=== PATIENT | female | born 1940 | race Caucasian/White ===

== ENCOUNTER → 2023-12-01 05:00 | Outpatient (REF) | payer MEDICARE, MEDICAID, SELFPAY ==
[2023-12-01 09:42] LABS: Hematocrit 34.6 % (37-47); Hemoglobin 10.9 g/dL (12.0-15.0); Mean Corp Hgb Conc 31.5 g/dL (32-36); Mean Corpuscular Hgb 28.4 pg (27.0-32.0); Mean Corpuscular Volume 90.1 fL (81-99); Mean Platelet Vol. 10.1 fl (6.2-12.0); Platelet Count 258 K/mm3 (150-450); RBC Distribution Width CV 14.3 % (11.6-14.6); RBC Distribution Width SD 47.3 fl (35.1-43.9); Red Blood Count 3.84 M/mm3 (4.2-5.4)
[2023-12-01 10:55] LABS: Vitamin D,25 Hydroxy 35.7 ng/mL
[2023-12-01 11:59] LABS: ALB/GLOB Ratio 0.9 RATIO (0.9-2.4); AST(SGOT) 24 U/L (15-37); Alanine Aminotransfer ALT/SGPT 21 U/L (13-56); Albumin, Serum 3.2 g/dL (3.2-5.0); Alkaline Phosphatase 60 U/L (45-117); Anion Gap 5 (5-15); BUN 15 mg/dL (7-18); BUN/Creat Ratio 18.3 RATIO (10-20); Calcium,Total 8.6 mg/dL (8.5-10.1); Chloride 112 mmol/L (98-107); Cholesterol 197 mg/dL (200); Creatinine, Serum 0.82 mg/dL (0.55-1.02); EST Glomerular Filtration Rate 71 mL/min (>60); Est Glom Filt Rate - Afr Amer 86 mL/min (>60); Globulin 3.5 g/dL (2.2-4.2); Glucose 91 mg/dL (74-106); High Density Lipoprotein 63 mg/dL; Magnesium 2.2 mg/dL (1.6-2.6); Potassium 3.9 mmol/L (3.5-5.1); Protein, Total 6.7 g/dL (6.4-8.2); Sodium Level 142 mmol/L (136-145); Triglycerides 119 mg/dL; Very Low Density Lipoprotein 24 mg/dL (5-40)
[2023-12-01 13:55] LABS: Hemoglobin A1c 5.5 % (3.8-5.6)
== END ==
LOC: OLS.ACW300 05:00
PROVIDERS: Visit Provider Family Medicine
DX: E55.9 Vitamin D deficiency, unspecified (principal); Z79.899 Other long term (current) drug therapy
CPT/HCPCS: 36415; 80053; 80061; 82306; 83036; 83735; 84443; 85027

== ENCOUNTER → 2023-12-08 22:30 | Outpatient (REF) | payer MEDICARE, MEDICAID, SELFPAY ==
[2023-12-09 08:41] LABS: Bacteria 0 SEEN /hpf (None Seen); Mucous, Urine 0 SEEN /hpf (<or=2+); Red Blood Cells-Urine 0 SEEN /hpf (0-5); Squamous Epithelial Cells - UA 0 SEEN /hpf (5-10); White Blood Cells 0 SEEN /hpf (0-5)
[2023-12-09 08:50] LABS: Color, Urine Yellow (Yellow); Glucose, Dipstick Normal (Normal); Ketone-Dipstick Negative (Negative); Leukocyte Esterase-Dipstick Negative /ul (Negative); Nitrite-Dipstick Negative (Negative); Occult Blood-Urine Negative /ul (Negative); Protein-Dipstick Negative (Negative); Urine Bilirubin Dipstick Negative (Negative); Urine Clarity Clear (Clear); Urine Urobilinogen Normal (Normal)
== END ==
LOC: OLS.ACW400 22:30
PROVIDERS: Visit Provider Family Medicine
DX: F03.918 Unspecified dementia, unspecified severity, with other behavioral disturbance (principal); R29.6 Repeated falls; E66.09 Other obesity due to excess calories; R44.3 Hallucinations, unspecified; F05 Delirium due to known physiological condition
CPT/HCPCS: 81001; 87086

== ENCOUNTER → 2024-03-31 | Outpatient (REF) | payer MEDICARE, MEDICAID, SELFPAY ==
[2024-03-31 08:41] LABS: Hematocrit 28.1 % (37-47); Hemoglobin 8.9 g/dL (12.0-15.0); Mean Corp Hgb Conc 31.7 g/dL (32-36); Mean Corpuscular Volume 88.4 fL (81-99); Mean Platelet Vol. 10.1 fl (6.2-12.0); Platelet Count 221 K/mm3 (150-450); Red Blood Count 3.18 M/mm3 (4.2-5.4); White Blood Count 6.3 K/mm3 (4.4-11.0)
[2024-03-31 09:13] LABS: ALB/GLOB Ratio 0.9 RATIO (0.9-2.4); AST(SGOT) 19 U/L (15-37); Alanine Aminotransfer ALT/SGPT 14 U/L (13-56); Albumin, Serum 2.7 g/dL (3.2-5.0); Alkaline Phosphatase 58 U/L (45-117); Anion Gap 4 (5-15); BUN 15 mg/dL (7-18); BUN/Creat Ratio 19.5 RATIO (10-20); Calcium,Total 8.6 mg/dL (8.5-10.1); Chloride 112 mmol/L (98-107); Cholesterol 155 mg/dL (200); Creatinine, Serum 0.77 mg/dL (0.55-1.02); EST Glomerular Filtration Rate 76 mL/min (>60); Est Glom Filt Rate - Afr Amer 92 mL/min (>60); Globulin 2.9 g/dL (2.2-4.2); Glucose 86 mg/dL (74-106); High Density Lipoprotein 53 mg/dL; Potassium 4.1 mmol/L (3.5-5.1); Protein, Total 5.6 g/dL (6.4-8.2); Sodium Level 143 mmol/L (136-145); Triglycerides 70 mg/dL; Very Low Density Lipoprotein 14 mg/dL (5-40)
== END ==
LOC: OLS.ACW400 05:00
PROVIDERS: Visit Provider Family Medicine
DX: G30.1 Alzheimer's disease with late onset (principal); Z79.899 Other long term (current) drug therapy
CPT/HCPCS: 36415; 80053; 80061; 84443; 85027

== ENCOUNTER → 2024-04-11 | Outpatient (REF) | payer MEDICARE, MEDICAID, SELFPAY ==
[2024-04-11 08:41] LABS: Hemoglobin 10.8 g/dL (12.0-15.0); Mean Corp Hgb Conc 31.8 g/dL (32-36); Mean Corpuscular Hgb 28.4 pg (27.0-32.0); Mean Corpuscular Volume 89.5 fL (81-99); Mean Platelet Vol. 9.9 fl (6.2-12.0); Platelet Count 260 K/mm3 (150-450); RBC Distribution Width CV 13.8 % (11.6-14.6); RBC Distribution Width SD 45.1 fl (35.1-43.9)
[2024-04-11 08:52] LABS: Iron 63 ug/dL (50-170)
== END ==
LOC: OLS.ACW400 05:00
PROVIDERS: Visit Provider Family Medicine
DX: G30.1 Alzheimer's disease with late onset (principal); R26.81 Unsteadiness on feet; E66.09 Other obesity due to excess calories; R44.3 Hallucinations, unspecified
CPT/HCPCS: 36415; 83540; 85027

== ENCOUNTER → 2024-08-01 | Outpatient (REF) | payer MEDICARE, MEDICAID, SELFPAY ==
[2024-08-01 09:04] LABS: Hematocrit 33.4 % (37-47); Hemoglobin 10.5 g/dL (12.0-15.0); Mean Corp Hgb Conc 31.4 g/dL (32-36); Mean Corpuscular Hgb 27.8 pg (27.0-32.0); Mean Corpuscular Volume 88.4 fL (81-99); Mean Platelet Vol. 9.8 fl (6.2-12.0); Platelet Count 270 K/mm3 (150-450); RBC Distribution Width SD 48.5 fl (35.1-43.9); Red Blood Count 3.78 M/mm3 (4.2-5.4); White Blood Count 6.4 K/mm3 (4.4-11.0)
[2024-08-01 09:26] LABS: ALB/GLOB Ratio 1.4 RATIO (0.9-2.4); AST(SGOT) 24 U/L (<=31); Alanine Aminotransfer ALT/SGPT 10 U/L (<=34); Albumin, Serum 3.9 g/dL (3.4-4.8); Alkaline Phosphatase 85 U/L (35-104); Anion Gap 10 (5-15); BUN 19 mg/dL (4-19); BUN/Creat Ratio 23.7 RATIO (10-20); Carbon Dioxide 22.9 mmol/L (21.0-32.0); Chloride 106 mmol/L (98-108); Cholesterol 211 mg/dL (<=200); Creatinine, Serum 0.79 mg/dL (0.70-1.20); EST Glomerular Filtration Rate 75 (>60); Globulin 2.8 g/dL (2.2-4.2); Glucose 89 mg/dL (70-99); High Density Lipoprotein 61 mg/dL; Low Density Lipoprotein Calc. 135 mg/dL; Potassium 4.3 mmol/L (3.3-5.1); Protein, Total 6.7 g/dL (5.9-8.4); Sodium Level 139 mmol/L (133-145); Total Bilirubin 0.22 mg/dL (0.00-1.30); Triglycerides 76 mg/dL; Very Low Density Lipoprotein 15 mg/dL (5-40); cholesterol:hdl ratio screen 3.45
== END ==
LOC: OLS.ACW400 05:00
PROVIDERS: Visit Provider Family Medicine
DX: Z79.899 Other long term (current) drug therapy (principal); G30.1 Alzheimer's disease with late onset; R29.6 Repeated falls; R26.81 Unsteadiness on feet; E66.09 Other obesity due to excess calories; R44.3 Hallucinations, unspecified; F03.918 Unspecified dementia, unspecified severity, with other behavioral disturbance
CPT/HCPCS: 36415; 80053; 80061; 84443; 85027

== ENCOUNTER → 2024-10-05 05:00 | Outpatient (REF) | payer MEDICARE, MEDICAID, SELFPAY ==
[2024-10-05 07:04] LABS: Absolute Lymphocyte Count 2.12 X10^3/uL (0.83-4.51); Absolute Neutrophil Count 3.1 X10^3/uL (2.0-7.7); Basophil# 0.04 X10^3/uL; Basophil% 0.7 % (0-1); Eosinophil# 0.22 X10^3/uL; Eosinophils% 3.6 % (0-5); Hematocrit 31.7 % (37-47); Hemoglobin 10.2 g/dL (12.0-15.0); Lymphocyte # 2.12 X10^3/ul (0.83-4.51); Lymphocyte % 34.9 % (19-41); Mean Corp Hgb Conc 32.2 g/dL (32-36); Mean Corpuscular Hgb 28.7 pg (27.0-32.0); Mean Corpuscular Volume 89.3 fL (81-99); Mean Platelet Vol. 9.8 fl (6.2-12.0); Monocyte% 9.9 % (0-10); NRBC Flagged by Analyzer 0 % (0-5); Neutrophil # 3.09 X10^3/uL (2.7-7.7); Neutrophil % 50.7 % (47-70); Platelet Count 257 K/mm3 (150-450); RBC Distribution Width CV 14.6 % (11.6-14.6); RBC Distribution Width SD 47.3 fl (35.1-43.9); Red Blood Count 3.55 M/mm3 (4.2-5.4); White Blood Count 6.1 K/mm3 (4.4-11.0)
[2024-10-05 07:16] LABS: Anion Gap 10 (5-15); BUN 18 mg/dL (4-19); BUN/Creat Ratio 22.6 RATIO (10-20); Calcium,Total 9.3 mg/dL (7.6-11.0); Carbon Dioxide 24.1 mmol/L (21.0-32.0); Chloride 106 mmol/L (98-108); EST Glomerular Filtration Rate 73 (>60); Glucose 91 mg/dL (70-99); Potassium 4.6 mmol/L (3.3-5.1); Sodium Level 141 mmol/L (133-145)
== END ==
LOC: OLS.ACW400 05:00
PROVIDERS: Visit Provider Family Medicine
DX: G30.1 Alzheimer's disease with late onset (principal); R29.6 Repeated falls; R27.9 Unspecified lack of coordination; R41.841 Cognitive communication deficit; R53.1 Weakness; R26.81 Unsteadiness on feet; E66.09 Other obesity due to excess calories
CPT/HCPCS: 36415; 80048; 85025

== ENCOUNTER → 2024-11-28 04:00 | Outpatient (REF) | payer MEDICARE, MEDICAID, SELFPAY ==
[2024-11-28 10:35] LABS: Hematocrit 33.5 % (37-47); Hemoglobin 10.9 g/dL (12.0-15.0); Mean Corp Hgb Conc 32.5 g/dL (32-36); Mean Corpuscular Volume 88.2 fL (81-99); Mean Platelet Vol. 9.8 fl (6.2-12.0); Platelet Count 238 K/mm3 (150-450); RBC Distribution Width CV 14.3 % (11.6-14.6); RBC Distribution Width SD 45.8 fl (35.1-43.9); Red Blood Count 3.80 M/mm3 (4.2-5.4); White Blood Count 7.1 K/mm3 (4.4-11.0)
[2024-11-28 11:11] LABS: AST(SGOT) 32 U/L (<=31); Alanine Aminotransfer ALT/SGPT 12 U/L (<=34); Albumin, Serum 3.4 g/dL (3.4-4.8); Alkaline Phosphatase 108 U/L (35-104); Anion Gap 12 (5-15); BUN 22 mg/dL (4-19); BUN/Creat Ratio 28.8 RATIO (10-20); Calcium,Total 9.2 mg/dL (7.6-11.0); Carbon Dioxide 21.8 mmol/L (21.0-32.0); Chloride 106 mmol/L (98-108); Cholesterol 199 mg/dL (<=200); Globulin 2.8 g/dL (2.2-4.2); Glucose 97 mg/dL (70-99); Low Density Lipoprotein Calc. 137 mg/dL; Potassium 3.7 mmol/L (3.3-5.1); Triglycerides 66 mg/dL; Very Low Density Lipoprotein 13 mg/dL (5-40); cholesterol:hdl ratio screen 4.06
== END ==
LOC: OLS.ACW400 04:00
PROVIDERS: Referring Provider Family Medicine; Visit Provider Family Medicine
DX: G30.1 Alzheimer's disease with late onset (principal); R29.6 Repeated falls; R26.81 Unsteadiness on feet; E66.09 Other obesity due to excess calories; R44.3 Hallucinations, unspecified; F03.918 Unspecified dementia, unspecified severity, with other behavioral disturbance
CPT/HCPCS: 36415; 80053; 80061; 84443; 85027

== ENCOUNTER → 2025-03-27 | Outpatient (REF) | payer MEDICARE, MEDICAID, SELFPAY ==
--- OUTSIDE RECORDS SUMMARY | 2025-03-27 04:31 | XMS RPT_ITS | CCD ---
Author Organization [facility] Care Team Providers Care Crm Dynamics Developer Name Role Phone Abdiel Beltrán Primary Care Provider [phone] aMdyson Collins DO Primary Care Provid er Dennis [place] Kaylee Primary Care Provid er Abdiel Beltrán Primary Care Provider Madyson Collins Referring Unavailable Chucho Means Attending [facility] Unavailable BRIAN CARLSON Attending Unavailable [facility] [place] Primary Care Unavailable DennisMadyson abel Referring Unavailable PROVIDER, UNKNOWN Referring Unavailable BRIAN CARLSON Attending Unavailable Abdiel Beltrán [facility] Care Unavailable Nicolás Collins DOland Kaylee Primary Care Provid er Nicolás Collins DOland Kaylee Primary Care Provid er Madyson Collins DO Primary Care Provider Brian Carlson MD Unavailable Dennis [place] Primary Care Provider Brian Carlson MD Unavailable Brian Carlson MD Unavailable [phone] Nicolás Collins DOland Kaylee Primary Care Provid er MADYSON COLLINS Referring NICOLÁS [place] KAYLEE Primary Care MADYSON Dwyer Attending Yolanda COLLINS BRIGHTON KAYLEE Primary Care DenicevaMADYSON Vidales Attending Yolanda MUNIZRIO, [facility] Denicevai lablisa MUNIZRIO, BRIGHTON KAYLEE Attending Denicemealeshia brenda [facility], [facility] Denicevai lablisa DENNIS, [facility] [place]NOTE 2] Ref[facility] Deniceva lablsia DENNIS, BRIGHTON KAYLEE [facility]ending [facility], [facility] Denicevai lablisa MUNIZRIO, [facility] Unavailable YEN TIDWELL Referring Unavailable [facility] Unavailable ANTONI DIAZ Attending Unavailable REGINA YU Consulting Unavailable ANGELITO MATSON Admitting Unavailable MARY MAJOR Consulting Unavailable [facility] Unavailable YEN TIDWELL Attending Unavailable STEPHANE GRIDER Admitting Unavailable [facility] Unavailable KEL HILL Attending Unavailable YEN TIDWELL Referring Unavailable [facility] Unavailable [facility] Unavailable BRIAN CARLSON Attending Unavailable [facility] DeniceОльга Mina Attending Provider Unavailabl song ENGLISH, Ольга Attending Unavailable Ольга Thornton Referring Unavailable Leonardo ENGLISH, Ольга Attending Unavailable Leonardo ENGLISH, Ольга Attending Unavailable Leonardo ENGLISH, Ольга Attending Unavailable Leonardo ENGLISH, Ольга Attending Unavailable Medications Current Medications Medication Drug Class(es) Dates Sig (Normalized) Sig (Original) ascorbic acid 500 mg oral tablet (20 sources) Vitamin C ascorbic acid, v itamin C, (VITAMIN C) 500 mg tablet Take 500 mg by mouth. Active End: 02-10-2023 ascorbic acid (Vitamin C) 50 0 mg chewable tablet Chew 500 mg in the morning. 0 02/10/2023 Discontinued (Stop taking at discharge) Comment on above: Take 500 mg by mouth . benzonatate 100 mg oral capsule (10 sources) Non-narcotic Antitussive Start: 04-03-20 23 take 1 capsule by mouth three times daily as needed for cough benzonatate (TESSALON PERLES) 100 mg capsule Indications: Viral URI with cough Take 1 capsule by mouth three times a day as needed for cough. 40 capsule 04/03/2023 Active Comment on above: Take 1 capsule by mo uth three times a day as needed for cough. calcium carbonate 500 mg oral tablet (3 sources) take 1 tablet by mouth once daily calcium carbonate (OSCAL) 500 MG TABS tablet Take 500 mg by mouth daily 0 Active cephalexin 500 mg oral capsule (1 source) Cephalosporin Antibacterial Start: 05-08-19 End: 05-15-19 take 1 capsule by mouth four times daily cephALEXin (KEFLEX) 500 mg capsule Indications: Cellulitis of right arm Take 1 capsule by mouth four times daily for 7 days. 28 capsule 0 05/08/2022 05/15/2022 Active Comment on above: Take 1 capsule by [facility] four times daily for 7 days. cholecalciferol 0.025 mg oral capsule (20 sources) Vitamin D Cholecalciferol, Vitamin D3, 25 mcg (1,000 unit) cap Take 1 capsule by mouth. Active End: 02-10-2023 take 1 capsule by mouth in the morning cholecalciferol (Vitamin D-3) 25 MCG (1000 UT) capsule Take 1 capsule by mouth in the morning. 0 02/10/2023 Discontinued (Stop taking at discharge) take 1 capsule by [facility] once daily vitamin D 25 MCG (1000 UT) CAPS Take 1 capsule by mouth daily 0 Active Comment on above: Take 1 capsule by [facility]. citalopram 40 mg oral tablet (20 sources) Serotonin Reuptake Inhibitor Start: 03-03-2023 End: 03-06-2023 citalopram (CeleXA) tablet 40 mg Start: 02-18-2023 End: 02-18-2024 take 20 mg by mouth once daily 20 mg, Oral, Daily, Fir st dose on 02/28/23 at 0900 Start: 02-18-2023 End: 02-10-2023 citalopram (CeleXA) tablet 2 0 mg Start: 02-18-2023 End: 02-10-2023 citalopram (CeleXA) tablet 2 0 mg Start: 02-05-2023 End: 02-10-2023 citalopram (CeleXA) tablet 3 0 mg Start: 02-04-2023 End: 02-04-2023 take 40 mg by mouth once daily 40 mg, Oral, Daily, Fir st dose on Thu02/04/23 at 0925 Start: 10-04-2021 End: 10-09-2023 take 1 tablet by mouth once daily citalopram (CELEXA) 40 mg tablet Indications: Anxiety with depression take 1 tablet by mouth every day 90 tablet 3 10/09/2023 Active Start: 02-14-2021 take 2 tablets by mo uth once daily citalopram (CeleXA) 20 MG tablet Take 40 mg by mouth daily. 02/14/2021 Active Start: 11-29-2020 End: 12-29-2020 take 1 tablet by mouth once daily citalopram (CELEXA) 40 mg tablet Indications: Anxiety with depression Take 1 tablet by mouth once daily. 30 tablet 3 11/29/2020 Active Start: 11-19-2020 End: 05-08-2022 citalopram (CeleXA) 20 MG ta blet take 1 tablet by nell th once daily citalopram (CELEXA) 10 MG tablet Take 10 mg by mouth daily 0 Active Comment on above: Take 1 tablet by nell th once daily. Take 20 mg by mouth once daily. TAKE 1 TABLET BY NELL TH EVERY DAY donepezil hydrochloride 10 mg oral tablet (20 sources) Start: 03-25-2022 End: 05-27-2023 take 1 tablet by mouth once daily at bedtime donepezil (ARICEPT) 10 mg tablet take 1 tablet by mouth everyday at bedtime 90 tablet 3 05/27/2023 Active Start: 01-03-2022 End: 04-03-2022 take 1 tablet by mouth once daily at bedtime donepezil (ARICEPT) 23 mg tablet Indications: Dementia without behavioral disturbance, unspecified dementia type Take 1 tablet by mouth daily at bedtime. 90 tablet 3 01/03/2022 Active Start: 11-26-2021 End: 02-04-2023 take 2 tablets by mouth at bedtime donepezil (Aricept) 5 MG tablet Take 10 mg by mouth before bedtime. 0 11/26/2021 02/04/2023 Discontinued Start: 10-31-2021 End: 03-26-2022 take 1 tablet by mouth once daily at bedtime donepezil (ARICEPT) 5 mg tablet Take 1 tablet by mouth daily at bedtime. 90 tablet 3 12/26/2021 Active Comment on above: TAKE 1 TABLET BY NELL TH EVERYDAY AT BEDTIME Take 1 tablet by nell th daily at bedtime. meclizine hydrochloride 25 mg oral tablet (20 sources) Antiemetic Start: End: take 1 tablet by mouth every eight hours as needed meclizine (ANTIVERT) 25 mg tab Take 1 tablet by mouth three times daily as needed. 20 tablet 2 10/04/2021 Active Start: 11-25-2020 take 1 tablet by nell th every eight hours as needed meclizine (ANTIVERT) 25 mg tab 25 mg three times daily as needed. 1/2 tablet as needed 0 11/25/2020 Active Comment on above: 25 mg three times da kishor as needed. 1/2 tablet as needed Take 1 tablet by nell th three times daily as needed. melatonin 3 mg oral tablet (6 sources) Start: 03-03-2023 End: 04-05-2023 take 1 tablet by mouth once daily melatonin 3 MG tablet Take 1 tablet (3 mg) by mouth Nightly. 30 tablet 0 03/06/2023 04/05/2023 Active Start: 02-04-2023 End: 02-10-2023 melatonin tablet 5 mg memantine hydrochloride 5 mg oral tablet (20 sources) G-dettof-E-aspartate Receptor Antagonist Start: 03-10-2023 End: 03-17-2023 take 1 tablet by mouth once daily memantine (Namenda) 5 MG tablet Take 1 tablet (5 mg) by mouth daily for 7 doses. Do not start before March 10, 2023. 7 tablet 03/10/2023 Active Start: 03-10-2023 End: 03-06-2023 memantine (Namenda) tablet 5 mg Start: 03-10-2023 End: 03-06-2023 memantine (Namenda) tablet 5 mg Start: 03-06-2023 End: 03-10-2023 take 1 tablet by mouth twice daily memantine (Namenda) 5 MG tablet Take 1 tablet (5 mg) by mouth 2 times daily for 7 doses. 7 tablet 03/06/2023 Active Start: 03-02-2023 End: 03-06-2023 memantine (Namenda) tablet 5 mg Start: 02-04-2023 End: 02-10-2023 memantine (Namenda) tablet 1 0 mg Start: 12-12-2022 End: 12-12-2023 take 1 capsule by mouth once daily memantine XR (NAMENDA XR) 21 mg CSpX Indications: Age-related cognitive decline Take 1 capsule by mouth once daily. 90 capsule 3 12/12/2022 12/12/2023 Active End: 03-06-2023 take 1 tablet by mouth once daily memantine (Namenda) 10 MG tablet Take 10 mg by mouth daily. 0 03/06/2023 Discontinued (Stop taking at discharge) Comment on above: Take 1 capsule by mo [facility] once daily. Multiple Vitamins-Minerals (CENTRUM SILVER ADULT 50+ PO) (3 sources) take 1 tablet by mouth once daily Multiple Vitamins-Minerals (CENTRUM SILVER ADULT 50+ PO) Take 1 tablet by mouth daily 0 Active Multivitamin preparation (20 sources) take 1 tablet by mouth once daily multivitamin (MULTIPLE VITAMINS ORAL) Take 1 tablet by mouth once daily. (CENTRUM SILVER ADULT 50+ PO) Active take 1 tablet by mouth once stu y multivitamin (MULTIPLE VITAMINS ORAL) Take 1 tablet by mouth once daily. (CENTRUM SILVER ADULT 50+ PO) 0 Active Comment on above: Take 1 tablet by [facility] once daily. (CENTRUM SILVER ADULT 50+ PO) omeprazole 20 mg delayed release oral capsule (20 sources) Proton Pump Inhibitor Start: 10-04-2021 End: 03-23-2024 omeprazole (PriLOSEC) [address] capsule Start: 07-01-2021 End: 09-29-2021 take 1 capsule by mouth once daily omeprazole (PRILOSEC) 20 mg capsule Take 1 capsule by mouth once daily. 90 capsule 0 07/01/2021 09/29/2021 Active Start: 10-09-2020 End: 06-28-2021 take 1 capsule by mouth once daily omeprazole (PRILOSEC) 20 mg capsule Take 20 mg by mouth once daily. 0 10/09/2020 06/28/2021 Discontinued Comment on above: Take 20 mg by mouth once daily. Take 1 capsule by mo [facility] once daily. TAKE 1 CAPSULE BY MO [facility] ONCE DAILY QUEtiapine 25 mg oral tablet (12 sources) Atypical Antipsychotic Start: End: 4 take 1 tablet by mouth once daily at bedtime QUEtiapine (SEROQUEL) 25 mg tablet Indications: Dementia with behavioral disturbance (HCC) , SunDown syndrome take 1 tablet by mouth everyday at bedtime 90 tablet 1 11/19/2023 Active Start: 03-02-2023 End: 03-06-2023 QUEtiapine (SEROquel) tablet 12.5 mg Comment on above: Take 1 tablet by nell th daily at bedtime. 24 hr rivastigmine 0.192 mg/hr transdermal system (6 sources) Start: 10-05-19 End: 11-04-19 apply 1 dose transdermal route once daily rivastigmine (EXELON) 4.6 mg/24 hour patch APPLY 1 PATCH DIRECTED ONCE DAILY. 30 Patch 0 10/04/2021 10/08/2021 Discontinued (Cost of medication) Start: 10-04-2021 End: 11-03-2021 apply 1 dose transdermal route once daily rivastigmine (EXELON) 9.5 mg/24 hour patch APPLY 1 PATCH DIRECTED ONCE DAILY. 30 Patch 2 10/04/2021 10/08/2021 Discontinued (Cost of medication) Comment on above: APPLY 1 PATCH DIR ECTED ONCE DAILY. simvastatin 20 mg oral tablet (20 sources) HMG-CoA Reductase Inhibitor take 1 tablet by mouth once daily at bedtime simvastatin (ZOCOR) 20 mg tablet Take 20 mg by mouth daily at bedtime. Active Comment on above: Take 20 mg by mouth daily at bedtime. 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 90 tablet 3 02/24/2022 06/23/2022 Discontinued (Reorder) Comment on above: Take 20 mg by mouth once daily. 24 hr tolterodine tartrate 2 mg extended release oral capsule (15 sources) Cholinergic Muscarinic Antagonist Start: take 1 capsule by mouth once daily tolterodine ER (DETROL LA) 2 mg 24 hr capsule Indications: Female stress incontinence take 1 capsule by mouth every day 90 capsule 3 12/03/2023 Active Start: 12-12-2022 End: 12-12-2023 take 1 capsule by mouth once daily tolterodine ER (DETROL LA) 2 mg 24 hr capsule Indications: Female stress incontinence Take 1 capsule by mouth once daily. 90 capsule 3 12/12/2022 12/03/2023 Discontinued Comment on above: Take 1 capsule by mo [facility] once daily. Vitamin B Complex (20 sources) take 1000 mg by mouth once daily vitamin B complex (B COMPLEX-VITAMIN B12 ORAL) Take 1,000 mg by mouth once daily. Active take 1000 mg by mouth once daily vitamin B complex (B COMPLEX-VITAMIN B12 ORAL) Take 1,000 mg by mouth once daily. 0 Active Comment on above: Take 1,000 mg by nlel once daily. zinc acetate 50 mg oral capsule (20 sources) take 50 mg by mouth once daily ZINC ACETATE ORAL Take 50 mg by mouth once daily. Active Comment on above: Take 50 mg by mouth once daily. Completed/Discontinued Medications Medication Drug Class(es) Dates Sig (Normalized) Sig (Original) Acetaminophen (6 sources) Start: 02-27-2023 End: 03-06-2023 take 1 tablet by mouth every six hours as needed for pain and fever acetaminophen (Tylenol) tablet 650 mg Start: 02-27-2023 End: 02-27-2023 acetaminophen (Tylenol) tabl et 1,000 mg Start: 02-04-2023 End: 02-10-2023 take 1 tablet by mouth every six hours as needed for pain and fever acetaminophen (Tylenol) tablet 650 mg ascorbic acid / biotin / ferrous bisglycinate / folic acid / formic acid / iron-dextran complex / niacin / pantothenate / pyridoxine / riboflavin / thiamine / vitamin B12 (13 sources) Nicotinic Acid, Vitamin B12, Vitamin C End: 05-08-2022 iron johanna kate-FA-B-C#12-suc c 65 mg-65 mg -1,000 mcg (24) tab Take by mouth. 0 05/08/2022 Discontinued (Course of therapy completed) johanna resendiz-F A-B-C#12-succ 65 mg-65 mg -1,000 mcg (24) tab Take by mouth. 0 Active Comment on above: Take by mouth. aspirin 81 mg chewable tablet (20 sources) Platelet Aggregation Inhibitor, Nonsteroidal Anti-inflammatory Drug Start: 02-28-2023 End: 03-06-2023 take 81 mg by mouth once daily 81 mg, Oral, Daily, First dose on 02/28/23 at 0900 Start: 02-04-2023 End: 02-10-2023 take 81 mg by mouth once daily 81 mg, Oral, Daily, Fir st dose on Thu02/04/23 at 0925 aspirin 81 MG ch ewable tablet Chew 81 mg in the morning. 0 Active Comment on above: Take 81 mg by mouth. Take 81 mg by mouth once daily. cefTRIAXone (Rocephin) 1,000 mg in sodium chloride 0.9 % 50 mL IVPB Mini-Bag Plus (4 sources) Start: 02-28-2023 End: 03-02-2023 cefTRIAXone (Rocephin) 1,000 mg in sodium chloride 0.9 % 50 mL IVPB Mini-Bag Plus Start: 02-04-2023 End: 02-04-2023 cefTRIAXone (Rocephin) 1,000 mg in sodium chloride 0.9 % 50 mL IVPB Mini-Bag Plus docusate sodium 50 mg / sennosides, fpc 8.6 mg oral tablet (2 sources) Start: 03-02-2023 End: 03-06-2023 senna-docusate sodium (Senokot-S) 8.6-50 MG tablet 2 tablet 0.4 ml enoxaparin sodium 100 mg/ml prefilled syringe (4 sources) Low Molecular Weight Heparin Start: 02-28-2023 End: 03-06-2023 inject 40 mg by subcutaneous injection every twenty-four hours 40 mg, SubCUTAneous, Every 24 hours scheduled (Daily), First dose on 02/28/23 at 0900, Indication of Use: Prophylaxis-DVT/PE, Indications: Prophylaxis of Venous Thromboembolism Start: 02-04-2023 End: 02-10-2023 enoxaparin (Lovenox) syringe 40 mg Misc Natural Products (HERBA L ENERGY COMPLEX PO) (5 sources) End: 02-10-2023 Misc Natural Products (HERBA L ENERGY COMPLEX PO) Take by mouth daily. Geovanna Kame- herbal 0 02/10/2023 Discontinued (Stop taking at discharge) Misc Natural Pro ducts (HERBAL ENERGY COMPLEX PO) Take by mouth daily. Linenita Noé- herbal 0 Active Multiple Vitamin (MULTIVITAMIN ADULT PO) (5 sources) End: 02-10-2023 take 1 tablet by mouth in the morning Multiple Vitamin (MULTIVITAMIN ADULT PO) Take 1 tablet by mouth in the morning. 0 02/10/2023 Discontinued (Stop taking at discharge) take 1 tablet by mouth in the mo rning Multiple Vitamin (MULTIVITAMIN ADULT PO) Take 1 tablet by mouth in the morning. 0 Active ondansetron ODT (Zofran-ODT) disintegrating tablet 4 mg (4 sources) Start: 02-27-2023 End: 03-06-2023 take 1 tablet by mouth every eight hours as needed for nausea and vomiting ondansetron ODT (Zofran-ODT) disintegrating tablet 4 mg Start: 02-04-2023 End: 02-10-2023 take 1 tablet by mouth every eight hours as needed for nausea and vomiting ondansetron ODT (Zofran-ODT) disintegrating tablet 4 mg polyethylene glycol 3350 [id number] mg powder for oral solution (4 sources) Osmotic Laxative Start: 02-27-2023 End: 03-06-2023 take 17 g by mouth every twenty-four hours as needed for constipation 17 g, Oral, Daily PRN, constipation, Starting on Thu02/27/23 at 2341, 1st line for treatment of constipation - give scheduled if no bowel movement in past 24 hours. Start: 02-04-2023 End: 02-10-2023 take 17 g by mouth every twenty-four hours as needed for constipation polyethylene glycol (PEG) 3350 (Miralax) packet 17 g microencapsulated potassium chloride 20 meq extended release oral tablet (2 sources) Start: 03-01-2023 End: 03-01-2023 potassium chloride CR (Klor-Con M20) ER tablet 40 mEq 50 ml sodium chloride 9 mg/m l injection (4 sources) Start: 02-27-2023 End: 02-27-2023 sodium chloride 0.9 % bolus 1,000 mL Start: 02-04-2023 End: 02-04-2023 sodium chloride 0.9 % bolus 500 mL Problems Active Problems Problem Classification Problem Date Documented Date Episodic/Chronic Anxiety disorders (20 sources) Mixed anxiety and depressive disorder; Translations: [Other specified anxiety disorders] Onset: 11-29-2020 Chronic Cancer of breast (20 sources) Malignant neoplasm of lower-outer quadrant of female breast; Translations: [Malignant neoplasm of lower-outer quadrant of left female breast] Onset: 12-15-2019 12-15-2019 Chronic Delirium, dementia, and amnestic and other cognitive disorders (20 sources) Dementia; Translations: [Unspecified dementia without behavioral disturbance] Onset: 01-15-2022 Chronic Disorders of lipid metabolism (20 sources) Mixed hyperlipidemia; Translations: [Mixed hyperlipidemia] Onset: 11-29-2020 Chronic E Codes: Fall (4 sources) Fall; Translations: [Unspecified fall, initial encounter] Onset: 12-19-2023 12-20-2023 Episodic E Codes: Natural/environment (1 source) Cat scratch - wound; Translations: [Scratched by cat, initial encounter] Episodic Esophageal disorders (20 sources) Gastroesophageal reflux disease without esophagitis; Translations: [Gastro-esophageal reflux disease without esophagitis] Onset: 11-29-2020 Chronic Genitourinary symptoms and ill-defined conditions (17 sources) Female stress incontinence; Translations: [Stress incontinence (female) (male)] Onset: 12-12-2022 12-12-2022 Chronic Malaise and fatigue (16 sources) Asthenia; Translations: [Other malaise] Onset: 03-02-2023 03-02-2023 Episodic Mood disorders (17 sources) Depressive disorder; Translations: [Depression] Onset: 03-02-2023 03-02-2023 Chronic Other connective tissue disease (1 source) Recurrent falls ; Translations: [Repeated falls] 07-28-2023 Episodic Other connective tissue disease (3 sources) Repeated falls; Translations: [Recurrent falls] Onset: 07-28-2023 Episodic Other ear and sense organ disorders (1 source) Hearing loss in left ear; Translations: [Unspecified hearing loss, left ear] 03-24-2023 Chronic Other ear and sense organ disorders (1 source) Unspecified hearing loss, left ear; Translations: [Hearing loss of left ear, unspecified hearing loss type] Onset: 03-24-2023 Chronic Other injuries and conditions due to external causes (1 source) At risk for falls ; Translations: [History of falling] 06-16-2023 Episodic Other injuries and conditions due to external causes (2 sources) Injury of head; Translations: [Unspecified injury of head, initial encounter] 12-20-2023 Episodic Other injuries and conditions due to external causes (2 sources) Unspecified injury of head, initial encounter; Translations: [Unspecified injury of head, initial encounter] Onset: 12-19-2023 Episodic Other nervous system disorders (1 source) Cognitive communication deficit; Translations: [Cognitive communication deficit] Onset: 10-26-2024 Chronic Other nervous system disorders (2 sources) Unsteadiness on feet; Translations: [Unsteadiness on feet] Onset: 04-22-2024 Episodic Other nervous system disorders (1 source) Unspecified lack of coordination; Translations: [Unspecified lack of coordination] Onset: 10-26-2024 Episodic Other nutritional; endocrine; and metabolic disorders (1 source) Obese class I; Translations: [Obesity, unspecified] 03-24-2023 Chronic Other nutritional; endocrine; and metabolic disorders (2 sources) Obesity; Translations: [Obesity, unspecified] 06-16-2023 Chronic Other nutritional; endocrine; and metabolic disorders (2 sources) Obesity, unspecified; Translations: [Class 1 obesity with body mass index (BMI) of 31.0 to 31.9 in adult, unspecified obesity type, unspecified whether serious comorbidity present] Onset: 03-24-2023 Chronic Other nutritional; endocrine; and metabolic disorders (1 source) Body mass index (BMI) 31.0-31.9, adult; Translations: [Class 1 obesity with body mass index (BMI) of 31.0 to 31.9 in adult, unspecified obesity type, unspecified whether serious comorbidity present] Onset: 07-28-2023 Chronic Other nutritional; endocrine; and metabolic disorders (2 sources) Other obesity due to excess calories; Translations: [Other obesity due to excess calories] Onset: 08-26-2024 Chronic Other nutritional; endocrine; and metabolic disorders (2 sources) Overweight in adulthood with body mass index of 25 or more but less than 30; Translations: [Body mass index (BMI) 28.0-28.9, adult] Episodic Residual codes; unclassified (4 sources) Dependence on other enabling machines and devices; Translations: [Dependence on other enabling machines] Onset: 12-19-2023 12-20-2023 Chronic Residual codes; unclassified (1 source) Amnesia; Translations: [Other amnesia] Episodic Residual codes; unclassified (1 source) Forgetful; Translations: [Other general symptoms and signs] Episodic Residual codes; unclassified (1 source) Bilateral lower limb edema; Translations: [Localized edema] 12-12-2022 Episodic Residual codes; unclassified (2 sources) Edema, generalized; Translations: [Generalized edema] 06-16-2023 Episodic Residual codes; unclassified (3 sources) Hallucinations, unspecified; Translations: [Hallucinations] Onset: 06-21-2023 Episodic Residual codes; unclassified (2 sources) H/O: anticoagulant therapy; Translations: [Personal history of other drug therapy] 12-20-2023 Episodic Residual codes; unclassified (2 sources) Personal history of other drug therapy; Translations: [Personal history of other drug therapy] Onset: 12-19-2023 Episodic Skin and subcutaneous tissue infections (1 source) Cellulitis of right upper limb; Translations: [Cellulitis of right upper limb] Episodic Unclassified (1 source) Long-term current use of aromatase inhibitor; Translations: [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] Unclassified (1 source) OPENED IN ERROR Unclassified (2 sources) Unspecified lump in the right breast, overlapping quadrants; Translations: [Unspecified lump in the right breast, overlapping quadrants] Onset: 12-25-2021 Unclassified (1 source) Unspecified dementia, moderate, without behavioral disturbance, psychotic disturbance, mood disturbance, and anxiety (HCC); Translations: [Unspecified dementia, moderate, without behavioral disturbance, psychotic disturbance, mood disturbance, and anxiety (HCC)] Onset: 03-02-2023 Unclassified (2 sources) Unspecified dementia, unspecified severity, with other behavioral disturbance; Translations: [Unspecified dementia, unspecified severity, with other behavioral disturbance] Onset: 04-22-2024 Unclassified (1 source) Unspecified dementia, unspecified severity, with agitation; Translations: [Unspecified dementia, unspecified severity, with agitation] Onset: 04-22-2024 Past or Other Problems Problem Classification Problem Date Documented Da te Episodic/Chronic Heart valve disorders (10 sources) Systolic murmur; Translations: [Cardiac murmur, unspecified] Onset: 06-16-2023 06-16-2023 Episodic Nausea and vomiting (20 sources) Nausea; Translations: [Nausea] Onset: 11-29-2020 Episodic Other injuries and conditions due to external causes (1 source) History of falling; Translations: [At risk for falling] Onset: 06-16-2023 Episodic Other nutritional; endocrine; and metabolic disorders (17 sources) Adult failure to thrive syndrome; Translations: [Adult failure to thrive] Onset: 02-27-2023 02-27-2023 Episodic Other nutritional; endocrine; and metabolic disorders (1 source) Overweight; Translations: [Overweight with body mass index (BMI) of 29 to 29.9 in adult] Onset: 12-12-2022 Episodic Other nutritional; endocrine; and metabolic disorders (1 source) Body mass index (BMI) 29.0-29.9, adult; Translations: [Overweight with body mass index (BMI) of 29 to 29.9 in adult] Onset: 12-12-2022 Episodic Other nutritional; endocrine; and metabolic disorders (2 sources) Adult failure to thrive; Translations: [Adult failure to thrive] Onset: 02-27-2023 Episodic Other screening for suspected conditions (not mental disorders or infectious disease) (20 sources) Patient encounter status; Translations: [Encounter for screening for other suspected endocrine disorder] Onset: 11-29-2020 Episodic Residual codes; unclassified (4 sources) Estrogen receptor positive status [ER+]; Translations: [ESTROGEN RECEPTOR POSITIVE STATUS] Onset: 12-25-2021 Episodic Residual codes; unclassified (19 sources) At risk of delirium; Translations: [Other specified personal risk factors, not elsewhere classified] Onset: 02-04-2023 02-04-2023 Episodic Residual codes; unclassified (17 sources) Altered mental status; Translations: [Altered mental status, unspecified] Onset: 02-05-2023 02-05-2023 Episodic Residual codes; unclassified (15 sources) At risk for imbalanced nutrition, less than body requirements; Translations: [Other specified personal risk factors, not elsewhere classified] Onset: 03-02-2023 03-02-2023 Episodic Residual codes; unclassified (10 sources) Hallucinations; Translations: [Hallucinations, unspecified] Onset: 06-21-2023 06-16-2023 Episodic Residual codes; unclassified (1 source) Generalized edema; Translations: [Generalized edema] Onset: 06-16-2023 Episodic Residual codes; unclassified (1 source) Localized edema; Translations: [Bilateral leg edema] Onset: 12-12-2022 Episodic Unclassified (1 source) Unspecified dementia, moderate, without behavioral disturbance, psychotic disturbance, mood disturbance, and anxiety (HCC); Translations: [Unspecified dementia, moderate, without behavioral disturbance, psychotic disturbance, mood disturbance, and anxiety (HCC)] Onset: 12-19-2023 Urinary tract infections (1 source) Urinary tract infection, site not specified; Translations: [Recurrent UTI (urinary tract infection)] Onset: 04-29-2023 Episodic Varicose veins of lower extremity (16 sources) Varicose veins of lower extremity; Translations: [Varicose veins of bilateral lower extremities with other complications] Onset: 12-12-2022 12-12-2022 Episodic Results Test Name Value Interpretation Reference Range Facility Anion gap in Serum or Plasma Ordered By: Ольга Patterson on 08-01-2024 Anion gap [Moles/Vol] 10 mmol/L 5-15 [facility] BUN/creatinine ratioOrdered By: Ольга Patterson on 08-01-2024 Urea nitrogen/Creatinine [Mass ratio] 23.7 mg/mg High 10-20 [facility] Bilirubin, totalOrdered By: Ольга Patterson on 08-01-2024 Bilirubin [Mass/Vol] 0.22 mg/dL 0.00-1.30 [facility] Calculated very low density lipoprotein (VLDL) cholesterol measurementOrdered By: Ольга Patterson on 08-01-2024 Calculated very low density lipoprotein (VLDL) cholesterol measurement 15 mg/dL 5-40 [facility] Carbon dioxide, total [Moles /volume] in Central venous bloodOrdered By: Ольга Patterson on 08-01-2024 CO2 [Moles/Vol] 22.9 mmol/L 21.0-32.0 [facility] Chloride assayOrdered By: Gallo Patterson on 08-01-2024 Chloride [Moles/Vol] 106 mmol/L 98-108 [facility] Erythrocyte distribution wid th ratioOrdered By: Ольга Patterson on 08-01-2024 Erythrocyte distribution width (RBC) [Ratio] 15.0 % High 11.6-14.6 [facility] Erythrocyte distribution wid th standard deviationOrdered By: Ольга Patterson on 08-01-2024 Erythrocyte distribution width (RBC) [Ratio] 48.5 fl High 35.1-43.9 [facility] Glomerular filtration rate ( GFR) estimation/1.73 sq m using serum, plasma, or whole bOrdered By: Ольга Patterson on 08-01-2024 GFR/1.73 sq M.predicted among non-blacks MDRD (S/P/Bld) [Vol rate/Area] 75 mL/min/{1.73_m2} >60 [facility] Comment on above: mL/min/1.73m2 CKD-EP I Creatinine Equation (2020) Hematocrit Auto (Bld) [Volum e fraction]Ordered By: Ольга Patterson on 08-01-2024 Hematocrit (Bld) [Volume fraction] 33.4 % Low 37-47 [facility] Hemoglobin measurementOrdere d By: Ольга Patterson on 08-01-2024 Hemoglobin (Bld) [Mass/Vol] 10.5 g/dL Low 12.0-15.0 [facility] LDL calc ser/plasOrdered By: Ольга Patterson on 08-01-2024 Cholesterol in LDL [Mass/Vol] 135 mg/dL [facility] Comment on above: Jvktndzypa=612-884 m g/dL & Higher Fakg=091 mg/dL or greater Laboratory - Chemistry and C hemistry - challengeOrdered By: Ольга Patterson on 08-01-2024 AST [Catalytic activity/Vol] 24 U/L <32 [facility] MCV (mean corpuscular volume ) determinationOrdered By: Ольга Patterson on 08-01-2024 MCV (RBC) [Entitic vol] 88.4 fL 81-99 [facility] Mean corpuscular hemoglobin (MCH) determinationOrdered By: Ольга Patterson on 08-01-2024 MCH (RBC) [Entitic mass] 27.8 pg 27.0-32.0 [facility] Mean corpuscular hemoglobin concentration (MCHC) determinationOrdered By: Ольга Patterson on 08-01-2024 MCHC (RBC) [Mass/Vol] 31.4 g/dL Low 32-36 [facility] Mean platelet volume determi nationOrdered By: Ольга Patterson on 08-01-2024 Platelet mean volume (Bld) [Entitic vol] 9.8 fL 6.2-12.0 [facility] Platelet countOrdered By: Gallo Patterson on 08-01-2024 Platelets (Bld) [#/Vol] 270 10*3/uL 150-450 [facility] Potassium measurement (mass/ volume)Ordered By: Ольга Patterson on 08-01-2024 Potassium (Unsp spec) [Mass/Vol] 4.3 mmol/L 3.3-5.1 [facility] RBC Auto (Bld) [#/Vol]Ordere d By: Ольга Patterson on 08-01-2024 RBC (Bld) [#/Vol] 3.78 10*6/uL Low 4.2-5.4 [facility] Screening total cholesterol/ high density lipoprotein (HDL) cholesterol ratioOrdered By: Ольга Patterson on 08-01-2024 Cholesterol.total/Cholest ema in HDL [Mass ratio] 3.45 {ratio} [facility] Serum creatinine measurement (mass/volume)Ordered By: Ольга Patterson on 08-01-2024 Creatinine [Mass/Vol] 0.79 mg/dL 0.70-1.20 [facility] Serum globulin measurementOr dered By: Ольга Patterson on 08-01-2024 Globulin (S) [Mass/Vol] 2.8 g/dL 2.2-4.2 [facility] Serum glucose measurement (m ass/volume)Ordered By: Ольга Patterson on 08-01-2024 Glucose [Mass/Vol] 89 mg/dL 70-99 [facility] Serum or plasma alanine garcias otransferase (ALT) measurementOrdered By: Ольга Patterson on 08-01-2024 ALT [Catalytic activity/Vol] 10 U/L <35 [facility] Serum or plasma albumin tahmina urement (mass/volume)Ordered By: Ольга Patterson on 08-01-2024 Albumin [Mass/Vol] 3.9 g/dL 3.4-4.8 [facility] Serum or plasma albumin/glob ulin mass ratioOrdered By: Ольга Patterson on 08-01-2024 Albumin/Globulin [Mass ratio] 1.4 {ratio} 0.9-2.4 [facility] Serum or plasma alkaline jose a sphatase measurementOrdered By: Ольга Patterson on 08-01-2024 ALP [Catalytic activity/Vol] 85 U/L 35-104 [facility] Serum or plasma calcium tahmina urement (mass/volume)Ordered By: Ольга Patterson on 08-01-2024 Calcium [Mass/Vol] 9.0 mg/dL 7.6-11.0 [facility] Serum or plasma cholesterol in HDL measurement (mass/volume)Ordered By: Ольга Patterson on 08-01-2024 Cholesterol in HDL [Mass/Vol] 61 mg/dL >40 [facility] Comment on above: National Cholesterol Education Program (NCEP) guidelines:<40 mg/dL: Low HDL-cholesterol (major risk factor for CHD)>= 60 mg/dL: High HDL-cholesterol (negative risk factor for CHD)HDL-cholesterol is affected by a number of factors, e.g. smoking, exercise, hormones, sex and age. Serum or plasma cholesterol measurement (mass/volume)Ordered By: Ольга Patterson on 08-01-2024 Cholesterol [Mass/Vol] 211 mg/dL High <201 [facility] Comment on above: Cholesterol level, D esirable <200 mg/dLBorderline high cholesterol 200-239 mg/dLHigh cholesterol >=240 mg/dLRecommendations of the NCEP Adult Treatment Panel for the following risk-cutoff thresholds for the [place] population. Serum or plasma urea nitroge n measurement (mass/volume)Ordered By: Ольга Patterson on 08-01-2024 Urea nitrogen [Mass/Vol] 19 mg/dL 4-19 [facility] Sodium levelOrdered By: Connor Patterson on 08-01-2024 Sodium [Moles/Vol] 139 mmol/L 133-145 [facility] TSH DL <= 0.005 mIU/L QnOrde red By: Ольга Patterson on 08-01-2024 TSH Qn 1.770 uIU/mL 0.300-4.200 [facility] Total proteinOrdered By: Rubens Patterson on 08-01-2024 Protein [Mass/Vol] 6.7 g/dL 5.9-8.4 [facility] Triglycerides measurementOrd ered By: Ольга Patterson on 08-01-2024 Triglyceride [Mass/Vol] 76 mg/dL <199 [facility] Comment on above: The drugs N-Acetylcy steine and Metamizole may falsely depress this assay. Normal range: <150 mg/dLBorderline High: 150-199 mg/dLHigh: 200-499 mg/dLVery High: >500 mg/dL White blood cell (WBC) count Ordered By: Ольга Patterson on 08-01-2024 WBC (Bld) [#/Vol] 6.4 10*3/uL 4.4-11.0 [facility] BASIC METABOLIC PANELon 09-0 Anion gap [Moles/Vol] 5 mmol/L Normal 3-13 [facility] Comment on above: Performed By: #### L [id number] #### Crew Supervisor: MARION CARMEN ([phone]) [facility] ([facility]) [address] [place] [address] Calcium [Mass/Vol] 9.4 mg/dL Normal 8.4-10.4 [facility] Comment on above: Performed By: #### L [id number] #### Crew Supervisor: MARION CARMEN ([phone]) [facility] ([facility] [address] [place] [address] [place] Chloride [Moles/Vol] 108 mmol/L High 98-107 [facility] Comment on above: Performed By: #### L [id number] #### Crew Supervisor: MARION CARMEN ([phone]) [facility] [address] [place] [address] [place] CO2 [Moles/Vol] 26 mmol/L Normal 22-30 [facility] Comment on above: Performed By: #### L [id number] #### Crew Supervisor: MARION CARMEN ([phone]) [facility]) [address] [place] [address] Creatinine [Mass/Vol] 0.88 mg/dL Normal 0.52-1.04 [facility] Comment on above: Performed By: #### L [id number] #### Crew Supervisor: MARION CARMEN ([phone]) [facility] ([facility] [address] [place] [address] [place] GLOMERULAR FILTRATION RATE ML/MIN/1.73 SQ M.PREDICTED 65.7 mL/min/1.73m*2 Normal >60.0 [facility] Comment on above: Result Comment: Calc ulation based on the Chronic Kidney Disease Epidemiology Collaboration (CKD-EPI) equation refit without adjustment for race Performed By: #### L [id number] #### Crew Supervisor: MARION CARMEN ([phone]) [facility] [address] [place] [address] [place] Glucose [Mass/Vol] 124 mg/dL High 70-100 [facility] Comment on above: Performed By: #### L [id number] #### Crew Supervisor: MARION CARMEN ([phone]) [facility] ([facility]) [address] [place] [place] [address] Potassium [Moles/Vol] 3.8 mmol/L Normal 3.5-5.1 [facility] Comment on above: Performed By: #### L [id number] #### Crew Supervisor: MARION CARMEN ([phone]) [facility] [address] [place] [address] [place] Sodium [Moles/Vol] 139 mmol/L Normal 135-145 [facility] Comment on above: Performed By: #### L [id number] #### Crew Supervisor: MARION CARMEN ([phone]) [facility] [address] [place] [address] [place] Urea nitrogen [Mass/Vol] 22 mg/dL High 7-17 [facility] Comment on above: Performed By: #### L [id number] #### Crew Supervisor: MARION CARMEN ([phone]) [facility] ([facility]) [address] [place] [address] Basic metabolic 1998 panelon 12-20-2023 Anion gap [Moles/Vol] 5 mmol/L 3 - 13 mmol/L [facility] Calcium [Mass/Vol] 9.4 mg/dL 8.4 - 10. 4 mg/dL [facility] Chloride [Moles/Vol] 108 mmol/L High 98 - 10 7 mmol/L [facility] CO2 [Moles/Vol] 26 mmol/L 22 - 30 mmol/L [facility] Creatinine [Mass/Vol] 0.88 mg/dL 0.52 - 1.04 mg/dL [facility] GFR/1.73 sq M.predicted (S/P/Bld) [Vol rate/Area] 65.7 mL/min - PINF [facility] Comment on above: Calculation based on the Chronic Kidney Disease Epidemiology Collaboration (CKD-EPI) equation refit without adjustment for race Glucose [Mass/Vol] 124 mg/dL High 70 - 100 mg/dL [facility] Interpretation and review of laboratory results Abnormal [facility] Potassium [Moles/Vol] 3.8 mmol/L 3.5 - 5.1 mmol/L [facility] Sodium [Moles/Vol] 139 mmol/L 135 - 145 mmol/L [facility] Urea nitrogen [Mass/Vol] 22 mg/dL High 7 - 17 mg/d L [facility] CBC W Auto Differential pane l (Bld)on 12-20-2023 Basophils (Bld) [#/Vol] 0.1 10*3/uL 0.0 - 0.2 10*3/uL [facility] Basophils/100 WBC (Bld) 0.6 % 0.0 - 2.0 % [facility] Eosinophils (Bld) [#/Vol] 0.2 10*3/uL 0. 0 - 0.5 10*3/uL [facility] Eosinophils/100 WBC (Bld) 2.3 % 0.0 - 6.0 % [facility] Erythrocyte distribution width (RBC) [Ratio] 13.7 % 11.5 - 15.0 % [facility] Hematocrit (Bld) [Volume fraction] 34.9 % Low 35.0 - 47.0 % [facility] Hemoglobin (Bld) [Mass/Vol] 11.3 g/dL Low 11.7 - 16.0 g/dL [facility] Immature granulocytes (Bld) [#/Vol] 0.0 10*3/uL NINF - 0.1 10*3/uL [facility] Immature granulocytes/100 WBC (Bld) 0.4 % 0.0 - 2.0 % [facility] Interpretation and review of laboratory results Abnormal [facility] th Lymphocytes (Bld) [#/Vol] 1.2 10*3/uL 1. 0 - 4.3 10*3/uL [facility] Lymphocytes/100 WBC (Bld) 11.7 % Low 15 .0 - 45.0 % [facility] MCH (RBC) [Entitic mass] 29.0 pg 26. 0 - 34.0 pg [facility] MCHC (RBC) [Mass/Vol] 32.4 % 30.5 - 36.0 % [facility] MCV (RBC) [Entitic vol] 89.5 fL 77.0 - 99.0 fL [facility] Monocytes (Bld) [#/Vol] 0.7 10*3/uL 0.0 - 0.9 10*3/uL [facility] Monocytes/100 WBC (Bld) 6.8 % 5.0 - 13.0 % [facility] Neutrophils (Bld) [#/Vol] 8.1 10*3/uL High 1. 8 - 7.5 10*3/uL [facility] Neutrophils/100 WBC (Bld) 78.2 % 38 .0 - 82.0 % [facility] Nucleated RBC/100 WBC (Bld) [Ratio] 0.0 % [facility] Platelet mean volume (Bld) [Entitic vol] 9.5 fL 9.0 - 12.7 fL [facility] Comment on above: MPV is a calculated measurement using platelet volume ratio Platelets (Bld) [#/Vol] 259 10*3/uL 140 - 440 10*3/uL [facility] RBC (Bld) [#/Vol] 3.90 10*6/uL 3.80 - 5.2 0 10*6/uL [facility] WBC (Bld) [#/Vol] 10.4 10*3/uL 3.6 - 10.7 10*3/uL [facility] CBC WITH AUTO DIFFERENTIALon 12-20-2023 Basophils (Bld) [#/Vol] 0.1 10*3/uL Normal 0.0-0.2 [facility] Comment on above: Performed By: #### L [id number] ####Crew Supervisor: MARION CARMEN ([phone])[facility] ([facility])[address] [place] [address] [place] Basophils/100 WBC (Bld) 0.6 % Normal 0.0-2.0 [facility] Comment on above: Performed By: #### L [id number] ####Crew Supervisor: MARION CARMEN ([phone])[facility] ([facility])[address] [place] [address] [place] Eosinophils (Bld) [#/Vol] 0.2 10*3/uL Normal 0.0-0.5 [facility] Comment on above: Performed By: #### L [id number] ####Crew Supervisor: MARION CARMEN ([phone])[facility]USBill [facility]MAN[facility] ([facility])[address] [place] [address] [place] Eosinophils/100 WBC (Bld) 2.3 % Normal 0.0-6.0 [facility] Comment on above: Performed By: #### L [id number] ####Crew Supervisor: MARION CARMEN ([phone])[facility]US[facility] ([facility])[address] [place] [address] Erythrocyte distribution width (RBC) [Ratio] 13.7 % Normal 11.5-15.0 [facility] Comment on above: Performed By: #### L [id number] ####Crew Supervisor: MARION CARMEN ([phone])[facility]US[facility] ([facility])[address] [place] [address] Hematocrit (Bld) [Volume fraction] 34.9 % Low 35.0-47.0 [facility] Comment on above: Performed By: #### L [id number] ####Crew Supervisor: MARION CARMEN ([phone])[facility]US[facility] ([facility])[address] [place] [address] Hemoglobin (Bld) [Mass/Vol] 11.3 g/dL Low 11.7-16.0 [facility] Comment on above: Performed By: #### L [id number] ####Crew Supervisor: MARION CARMEN ([phone])[facility]US[facility] ([facility])[address] [place] [address] IMMATURE GRANS % 0.4 % Normal 0.0-2.0 [facility] Comment on above: Performed By: #### L [id number] ####Crew Supervisor: MARION CARMEN ([phone])[facility]US[facility] ([facility])[address] [place] [address] IMMATURE GRANS ABSOLUTE 0.0 10*3/uL Normal <0.1 [facility] Comment on above: Performed By: #### L [id number] ####Crew Supervisor: MARION CARMEN ([phone])[facility] ([facility])[address] [place] [address] [place] Lymphocytes (Bld) [#/Vol] 1.2 10*3/uL Normal 1.0-4.3 [facility] Comment on above: Performed By: #### L [id number] ####Crew Supervisor: MARION CARMEN ([phone])[facility]US[facility] ([facility])[address] [place] [address] [place] Lymphocytes/100 WBC (Bld) 11.7 % Low 15.0-45.0 [facility] Comment on above: Performed By: #### L [id number] ####Crew Supervisor: MARION CARMEN ([phone])[facility]US[facility] ([facility])[address] [place] [address] MCH (RBC) [Entitic mass] 29.0 pg Normal 26.0-34.0 [facility] Comment on above: Performed By: #### L [id number] ####Crew Supervisor: MARION CARMEN ([phone])[facility] [employer] ([facility])[address] [place] [address] MCHC 32.4 % Normal 30.5-36.0 [facility] Comment on above: Performed By: #### L [id number] ####Crew Supervisor: MARION CARMEN ([phone])[facility] [employer] [facility] ([facility])[address] [place] [address] MCV (RBC) [Entitic vol] 89.5 fL Normal 77.0-99.0 [facility] Comment on above: Performed By: #### L [id number] ####Crew Supervisor: MARION CARMEN ([phone])[facility] [employer] ([facility])[address] [place] [address] Monocytes (Bld) [#/Vol] 0.7 10*3/uL Normal 0.0-0.9 [facility] Comment on above: Performed By: #### L [id number] ####Crew Supervisor: MARION CARMEN ([phone])[facility] [employer] [facility] ([facility])[address] [place] [address] [place] Monocytes/100 WBC (Bld) 6.8 % Normal 5.0-13.0 [facility] Comment on above: Performed By: #### L [id number] ####Crew Supervisor: MARION CARMEN ([phone])[facility] [employer] [facility] ([facility])[address] [place] [address] [place] NEUTROPHILS ABSOLUTE 8.1 10*3/uL High 1.8-7.5 [facility] Comment on above: Performed By: #### L [id number] ####Crew Supervisor: MARION CARMEN ([phone])[facility] [employer] [facility] ([facility])[address] [place] [address] [place] Neutrophils/100 WBC (Bld) 78.2 % Normal 38.0-82.0 [facility] Comment on above: Performed By: #### L [id number] ####Crew Supervisor: MARION CARMEN ([phone])[facility]USBill [facility] ([facility])[address] [place] [address] NRBC 0.0 /100 WBCs Normal 0.0-2.0 [facility] Comment on above: Performed By: #### L [id number] ####Crew Supervisor: MARION CARMEN ([phone])[facility]USBill [facility] ([facility])[address] [place] [address] Platelet mean volume (Bld) [Entitic vol] 9.5 fL Normal 9.0-12.7 [facility] Comment on above: Result Comment: MPV is a calculated measurement using platelet volume ratio Performed By: #### L [id number] ####Crew Supervisor: MARION CARMEN ([phone])[facility]USBill [facility] ([facility])[address] [place] [address] [place] Platelets (Bld) [#/Vol] 259 10*3/uL Normal 140-440 [facility] Comment on above: Performed By: #### L [id number] ####Crew Supervisor: MARION CARMEN ([phone])[facility]USBill [facility] ([facility])[address] [place] [address] [place] RBC (Bld) [#/Vol] 3.90 10*6/uL Normal 3.80-5.20 [facility] Comment on above: Performed By: #### L [id number] ####Crew Supervisor: MARION CARMEN ([phone])[facility]US[facility] ([facility])[address] [place] [address] [place] WBC (Bld) [#/Vol] 10.4 10*3/uL Normal 3.6-10.7 [facility] Comment on above: Performed By: #### L [id number] ####Crew Supervisor: MARION CARMEN ([phone])[facility] ([facility])[address] CERVICAL SPINE WO IV CONT Alejandro 12-20-2023 CT CERVICAL SPINE WO IV CONTRAST [facility] 1940 [id number] Exam Date/Time: 12/20/2023 01:22 Procedure: CT CERVICAL SPINE WO IV CONTRAST Ordering Provider: TIDWELL DOUGLAS Reason For Exam: fails monegasque ct c-spine rules PORTABLE CHEST CLINICAL INDICATION: Trauma with pain TECHNIQUE: Portable AP COMPARISON: 1023 FINDINGS: Heart is upper normal size. Double density overlies the left right heart border, corresponding to a hiatus hernia measuring up to 12.5 cm. The lungs are clear. There is no pneumothorax. The costophrenic angles are sharp. Degenerative change of the thoracic spine is noted. IMPRESSION: No traumatic abnormality throughout the chest. Hiatus hernia PELVIS: TECHNIQUE: AP COMPARISON: 06/02/2013 FINDINGS: There is no evidence for fracture or dislocation. Narrowing about the hip joints. Some narrowing about the sacroiliac joints. Degenerative change within the lower lumbar spine. Osteitis pubis. No bone lesion is identified. There is no soft tissue abnormality. IMPRESSION: No traumatic abnormality throughout the pelvis. Degenerative change. CT HEAD: CLINICAL INDICATION: Trauma with head and neck pain TECHNIQUE: Transaxial CT sequence performed through the head with 3 mm reconstruction. Sagittal and Coronal reconstruction images included. Dose reduction employed with automated exposure control. COMPARISON: 02/27/2023 FINDINGS: Ventricles and Extra-axial spaces: Generalized enlargement of the ventricles and sulci. No abnormal extracerebral collection identified. Cerebral and cerebellar parenchyma: Periventricular low attenuation areas bilaterally, corresponding to chronic microvascular ischemic change. No additional focal mass lesion or evidence for acute infarct throughout the cerebrum or cerebellum. 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 Mucosal thickening remains in the left maxillary sinus and left ethmoid air cells. Mastoid air cells: Normal Visualized Orbits: Normal Calvarium and skull base: No CT evidence for skull fracture. Left posterior parietal scalp hematoma IMPRESSION: Diminished cerebral volume and evidence of chronic microvascular ischemic change without acute intracranial abnormality. CT CERVICAL SPINE: TECHNIQUE: Transaxial sequence through the cervical spine. Coronal and sagittal reconstructions included. Dose reduction was employed with automated exposure control. COMPARISON: None FINDINGS: Cervical vertebrae and joints: No fracture, subluxation or other malalignment. Moderate generalized facet hypertrophy. Some further minor degenerative change about the uncovertebral joints from C3-C4 through C6-C7. No bone lesion identified. Intervertebral disc spaces and spinal canal: Disc space narrowing and minor spurring particular at C3-C4 and C4-C5 as well as C6-C7. No bony encroachment upon the cervical spinal canal. Soft tissues: Surrounding soft tissues of the neck are unremarkable on this noncontrast study. Other: Lung apices are unremarkable. IMPRESSION: No acute abnormality identified throughout the cervical spine. Cervical spondylosis Report Dictated on Electronically Signed By: Tab Beaulieu MD Electronically Signed Date/Time: 12/20/2023 2:11 AM EDT Fall Hx of dementia Normal [facility] CT Cervical spine WO contras ton 12-20-2023 Patient Name: ALBINA BROWN : 1940 Exam Date/Time: 12/20/2023 01:22 Procedure: CT CERVICAL SPINE WO IV CONTRAST Ordering Provider: TIDWELL DOUGLAS Reason For Exam: fails monegasque ct c-spine rules PORTABLE CHEST CLINICAL INDICATION: Trauma with pain TECHNIQUE: Portable AP COMPARISON: 1023 FINDINGS: Heart is upper normal size. Double density overlies the left right heart border, corresponding to a hiatus hernia measuring up to 12.5 cm. The lungs are clear. There is no pneumothorax. The costophrenic angles are sharp. Degenerative change of the thoracic spine is noted. [facility] Tab Beaulieu MD - 12/20/2023 Patient Name: ALBINA BROWN : 1940 Exam Date/Time: 12/20/2023 01:22 Procedure: CT CERVICAL SPINE WO IV CONTRAST Ordering Provider: TIDWELL DOUGLAS Reason For Exam: fails monegasque ct c-spine rules PORTABLE CHEST CLINICAL INDICATION: Trauma with pain TECHNIQUE: Portable AP COMPARISON: 1023 FINDINGS: Heart is upper normal size. Double density overlies the left right heart border, corresponding to a hiatus hernia measuring up to 12.5 cm. The lungs are clear. There is no pneumothorax. The costophrenic angles are sharp. Degenerative change of the thoracic spine is noted. IMPRESSION: No traumatic abnormality throughout the chest. Hiatus hernia PELVIS: TECHNIQUE: AP COMPARISON: 06/02/2013 FINDINGS: There is no evidence for fracture or dislocation. Narrowing about the hip joints. Some narrowing about the sacroiliac joints. Degenerative change within the lower lumbar spine. Osteitis pubis. No bone lesion is identified. There is no soft tissue abnormality. IMPRESSION: No traumatic abnormality throughout the pelvis. Degenerative change. CT HEAD: CLINICAL INDICATION: Trauma with head and neck pain TECHNIQUE: Transaxial CT sequence performed through the head with 3 mm reconstruction. Sagittal and Coronal reconstruction images included. Dose reduction employed with automated exposure control. COMPARISON: 02/27/2023 FINDINGS: Ventricles and Extra-axial spaces: Generalized enlargement of the ventricles and sulci. No abnormal extracerebral collection identified. Cerebral and cerebellar parenchyma: Periventricular low attenuation areas bilaterally, corresponding to chronic microvascular ischemic change. No additional focal mass lesion or evidence for acute infarct throughout the cerebrum or cerebellum. 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 Mucosal thickening remains in the left maxillary sinus and left ethmoid air cells. Mastoid air cells: Normal Visualized Orbits: Normal Calvarium and skull base: No CT evidence for skull fracture. Left posterior parietal scalp hematoma IMPRESSION: Diminished cerebral volume and evidence of chronic microvascular ischemic change without acute intracranial abnormality. CT CERVICAL SPINE: TECHNIQUE: Transaxial sequence through the cervical spine. Coronal and sagittal reconstructions included. Dose reduction was employed with automated exposure control. COMPARISON: None FINDINGS: Cervical vertebrae and joints: No fracture, subluxation or other malalignment. Moderate generalized facet hypertrophy. Some further minor degenerative change about the uncovertebral joints from C3-C4 through C6-C7. No bone lesion identified. Intervertebral disc spaces and spinal canal: Disc space narrowing and minor spurring particular at C3-C4 and C4-C5 as well as C6-C7. No bony encroachment upon the cervical spinal canal. Soft tissues: Surrounding soft tissues of the neck are unremarkable on this noncontrast study. Other: Lung apices are unremarkable. IMPRESSION: No acute abnormality identified throughout the cervical spine. Cervical spondylosis Report Dictated on Electronically Signed By: Tab Beaulieu MD Electronically Signed Date/Time: 12/20/2023 2:11 AM EDT [facility] Radiology Study observation (narrative) Cesario spencer CT HEAD WO IV CONTRASTon CT HEAD WO IV CONTRAST [facility] 1940 [id number] Exam Date/Time: 12/20/2023 01:22 Procedure: CT HEAD WO IV CONTRAST Ordering Provider: TIDWELL DOUGLAS Reason For Exam: fall on aspirin. posterior headache on left side PORTABLE CHEST CLINICAL INDICATION: Trauma with pain TECHNIQUE: Portable AP COMPARISON: 1023 FINDINGS: Heart is upper normal size. Double density overlies the left right heart border, corresponding to a hiatus hernia measuring up to 12.5 cm. The lungs are clear. There is no pneumothorax. The costophrenic angles are sharp. Degenerative change of the thoracic spine is noted. IMPRESSION: No traumatic abnormality throughout the chest. Hiatus hernia PELVIS: TECHNIQUE: AP COMPARISON: 06/02/2013 FINDINGS: There is no evidence for fracture or dislocation. Narrowing about the hip joints. Some narrowing about the sacroiliac joints. Degenerative change within the lower lumbar spine. Osteitis pubis. No bone lesion is identified. There is no soft tissue abnormality. IMPRESSION: No traumatic abnormality throughout the pelvis. Degenerative change. CT HEAD: CLINICAL INDICATION: Trauma with head and neck pain TECHNIQUE: Transaxial CT sequence performed through the head with 3 mm reconstruction. Sagittal and Coronal reconstruction images included. Dose reduction employed with automated exposure control. COMPARISON: 02/27/2023 FINDINGS: Ventricles and Extra-axial spaces: Generalized enlargement of the ventricles and sulci. No abnormal extracerebral collection identified. Cerebral and cerebellar parenchyma: Periventricular low attenuation areas bilaterally, corresponding to chronic microvascular ischemic change. No additional focal mass lesion or evidence for acute infarct throughout the cerebrum or cerebellum. 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 Mucosal thickening remains in the left maxillary sinus and left ethmoid air cells. Mastoid air cells: Normal Visualized Orbits: Normal Calvarium and skull base: No CT evidence for skull fracture. Left posterior parietal scalp hematoma IMPRESSION: Diminished cerebral volume and evidence of chronic microvascular ischemic change without acute intracranial abnormality. CT CERVICAL SPINE: TECHNIQUE: Transaxial sequence through the cervical spine. Coronal and sagittal reconstructions included. Dose reduction was employed with automated exposure control. COMPARISON: None FINDINGS: Cervical vertebrae and joints: No fracture, subluxation or other malalignment. Moderate generalized facet hypertrophy. Some further minor degenerative change about the uncovertebral joints from C3-C4 through C6-C7. No bone lesion identified. Intervertebral disc spaces and spinal canal: Disc space narrowing and minor spurring particular at C3-C4 and C4-C5 as well as C6-C7. No bony encroachment upon the cervical spinal canal. Soft tissues: Surrounding soft tissues of the neck are unremarkable on this noncontrast study. Other: Lung apices are unremarkable. IMPRESSION: No acute abnormality identified throughout the cervical spine. Cervical spondylosis Report Dictated on Electronically Signed By: Tab Beaulieu MD Electronically Signed Date/Time: 12/20/2023 2:11 AM EDT Fall Hx of dementia [facility] CT Head WO contraston 2023 Patient Name: ALBINA BROWN : 1940 Exam Date/Time: 12/20/2023 01:22 Procedure: CT HEAD WO IV CONTRAST Ordering Provider: TIDWELL DOUGLAS Reason For Exam: fall on aspirin. posterior headache on left side PORTABLE CHEST CLINICAL INDICATION: Trauma with pain TECHNIQUE: Portable AP COMPARISON: 1023 FINDINGS: Heart is upper normal size. Double density overlies the left right heart border, corresponding to a hiatus hernia measuring up to 12.5 cm. The lungs are clear. There is no pneumothorax. The costophrenic angles are sharp. Degenerative change of the thoracic spine is noted. [facility] Tab Beaulieu MD - 12/20/2023 Patient Name: ALBINA BROWN : 1940 Exam Date/Time: 12/20/2023 01:22 Procedure: CT HEAD WO IV CONTRAST Ordering Provider: TIDWELL DOUGLAS Reason For Exam: fall on aspirin. posterior headache on left side PORTABLE CHEST CLINICAL INDICATION: Trauma with pain TECHNIQUE: Portable AP COMPARISON: 1023 FINDINGS: Heart is upper normal size. Double density overlies the left right heart border, corresponding to a hiatus hernia measuring up to 12.5 cm. The lungs are clear. There is no pneumothorax. The costophrenic angles are sharp. Degenerative change of the thoracic spine is noted. IMPRESSION: No traumatic abnormality throughout the chest. Hiatus hernia PELVIS: TECHNIQUE: AP COMPARISON: 06/02/2013 FINDINGS: There is no evidence for fracture or dislocation. Narrowing about the hip joints. Some narrowing about the sacroiliac joints. Degenerative change within the lower lumbar spine. Osteitis pubis. No bone lesion is identified. There is no soft tissue abnormality. IMPRESSION: No traumatic abnormality throughout the pelvis. Degenerative change. CT HEAD: CLINICAL INDICATION: Trauma with head and neck pain TECHNIQUE: Transaxial CT sequence performed through the head with 3 mm reconstruction. Sagittal and Coronal reconstruction images included. Dose reduction employed with automated exposure control. COMPARISON: 02/27/2023 FINDINGS: Ventricles and Extra-axial spaces: Generalized enlargement of the ventricles and sulci. No abnormal extracerebral collection identified. Cerebral and cerebellar parenchyma: Periventricular low attenuation areas bilaterally, corresponding to chronic microvascular ischemic change. No additional focal mass lesion or evidence for acute infarct throughout the cerebrum or cerebellum. 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 Mucosal thickening remains in the left maxillary sinus and left ethmoid air cells. Mastoid air cells: Normal Visualized Orbits: Normal Calvarium and skull base: No CT evidence for skull fracture. Left posterior parietal scalp hematoma IMPRESSION: Diminished cerebral volume and evidence of chronic microvascular ischemic change without acute intracranial abnormality. CT CERVICAL SPINE: TECHNIQUE: Transaxial sequence through the cervical spine. Coronal and sagittal reconstructions included. Dose reduction was employed with automated exposure control. COMPARISON: None FINDINGS: Cervical vertebrae and joints: No fracture, subluxation or other malalignment. Moderate generalized facet hypertrophy. Some further minor degenerative change about the uncovertebral joints from C3-C4 through C6-C7. No bone lesion identified. Intervertebral disc spaces and spinal canal: Disc space narrowing and minor spurring particular at C3-C4 and C4-C5 as well as C6-C7. No bony encroachment upon the cervical spinal canal. Soft tissues: Surrounding soft tissues of the neck are unremarkable on this noncontrast study. Other: Lung apices are unremarkable. IMPRESSION: No acute abnormality identified throughout the cervical spine. Cervical spondylosis Report Dictated on Electronically Signed By: Tab Beaulieu MD Electronically Signed Date/Time: 12/20/2023 2:11 AM EDT [facility] Radiology Study observation (narrative) Cesario spencer ECG 12-LEADon 12-20-2023 ECG 12-LEAD IMPRESSION: EKG shows NSR, borderline LAD, normal OR QRS and QTC, no STEMI, no SVT, no LVH. Previous EKG unchanged. Electronically Signed On 12-20-2023 01:24:19 EDT by Yen Tidwell Normal [facility] ED Nursing Noteon 12-20-2023 ED Nursing Note Report to Radha gardner [place]. Audrey Arnett RN 12/20/23 0227 Normal [facility] ED Nursing Note Dr. Tidwell to bedside. Audrey Arnett RN 12/20/23 0023 Normal [facility] Laboratory - Chemistry and C hemistry - challengeon 12-20-2023 Troponin I.cardiac [Mass/Vol] ng/mL NINF - 0.034 ng/mL [facility] Laboratory - CoagulationOrde red By: Nallely Dominguez on 12-20-2023 aPTT Coag (PPP) [Time] 23.3 s 20.0 - 30.5 s [facility] INR Coag (PPP) [Relative time] Low 0.9 - 1.1 [facility] Comment on above: Recommended Anticoag ulant Therapy: SEE BELOW ----- INR of 2.0 - 3.0 : - Prophylaxis of Venous Thrombosis (high-risk surgery) - Treatment of Venous Thrombosis - Treatment of Pulmonary Embolism (Includes tissue heart valves, Acute Myocardial Infarction to prevent systemic embolism, Valvular Heart Disease, and Atrial Fibrillation) ----- INR of 2.5 - 3.5 : - Mechanical Prosthetic Valves (high risk) - If oral anticoagulant therapy is used to prevent Myocardial Infarction PT Coag (Bld) [Time] 10.3 s 9.0 - 12.0 s [facility] No Panel Informationon 12-19 No traumatic abnormality throughout the chest. Hiatus hernia PELVIS: TECHNIQUE: AP COMPARISON: 06/02/2013 FINDINGS: There is no evidence for fracture or dislocation. Narrowing about the hip joints. Some narrowing about the sacroiliac joints. Degenerative change within the lower lumbar spine. Osteitis pubis. No bone lesion is identified. There is no soft tissue abnormality. IMPRESSION: No traumatic abnormality throughout the pelvis. Degenerative change. CT HEAD: CLINICAL INDICATION: Trauma with head and neck pain TECHNIQUE: Transaxial CT sequence performed through the head with 3 mm reconstruction. Sagittal and Coronal reconstruction images included. Dose reduction employed with automated exposure control. COMPARISON: 02/27/2023 FINDINGS: Ventricles and Extra-axial spaces: Generalized enlargement of the ventricles and sulci. No abnormal extracerebral collection identified. Cerebral and cerebellar parenchyma: Periventricular low attenuation areas bilaterally, corresponding to chronic microvascular ischemic change. No additional focal mass lesion or evidence for acute infarct throughout the cerebrum or cerebellum. 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 Mucosal thickening remains in the left maxillary sinus and left ethmoid air cells. Mastoid air cells: Normal Visualized Orbits: Normal Calvarium and skull base: No CT evidence for skull fracture. Left posterior parietal scalp hematoma IMPRESSION: Diminished cerebral volume and evidence of chronic microvascular ischemic change without acute intracranial abnormality. CT CERVICAL SPINE: TECHNIQUE: Transaxial sequence through the cervical spine. Coronal and sagittal reconstructions included. Dose reduction was employed with automated exposure control. COMPARISON: None FINDINGS: Cervical vertebrae and joints: No fracture, subluxation or other malalignment. Moderate generalized facet hypertrophy. Some further minor degenerative change about the uncovertebral joints from C3-C4 through C6-C7. No bone lesion identified. Intervertebral disc spaces and spinal canal: Disc space narrowing and minor spurring particular at C3-C4 and C4-C5 as well as C6-C7. No bony encroachment upon the cervical spinal canal. Soft tissues: Surrounding soft tissues of the neck are unremarkable on this noncontrast study. Other: Lung apices are unremarkable. IMPRESSION: No acute abnormality identified throughout the cervical spine. Cervical spondylosis Report Dictated on Electronically Signed By: Tab Beaulieu MD Electronically Signed Date/Time: 12/20/2023 2:[facility] P Rupert 62 degrees [facility] [place] OR Interval 168 ms [facility] QRS Rupert -23 degrees [facility] QRSD Interval [address] [facility] QT Interval 415 ms [facility] QTC Interval 458 ms [facility] T Wave Rupert 47 degrees [facility] EKG shows NSR, borderline LAD, normal OR QRS and QTC, no STEMI, no SVT, no LVH. Previous EKG unchanged. Electronically Signed On 12-20-2023 01:24:19 EDT by Yen Tidwell CV Yen Arechiga MD - 12/20/2023 IMPRESSION: EKG shows NSR, borderline LAD, normal OR QRS and QTC, no STEMI, no SVT, no LVH. Previous EKG unchanged. Electronically Signed On 12-20-2023 01:24:19 EDT by Yen Tidwell [facility] No Panel InformationOrdered By: Tab Beaulieu on 12-20-2023 [facility] Work Phone: No Panel InformationOrdered By: Nallely Dominguez on 12-20-2023 Interpretation and review of laboratory results Abnormal [facility] PROTIME AND APTTon aPTT Coag (Bld) [Time] 23.3 s Normal 20.0-30.5 [facility] Comment on above: Performed By: #### L [id number] ####Crew Supervisor: MARION CARMEN ([phone])[facility] MANGOStreamline Health SolutionsMIHAI (TeamPatent)[address] [place] [address] INR Coag (PPP) [Relative time] {INR} Low 0.9-1.1 [facility] Comment on above: Result Comment: William mmended Anticoagulant Therapy: SEE BELOW ----- INR of 2.0 - 3.0 : - Prophylaxis of Venous Thrombosis (high-risk surgery) - Treatment of Venous Thrombosis - Treatment of Pulmonary Embolism (Includes tissue heart valves, Acute Myocardial Infarction to prevent systemic embolism, Valvular Heart Disease, and Atrial Fibrillation) ----- INR of 2.5 - 3.5 : - Mechanical Prosthetic Valves (high risk) - If oral anticoagulant therapy is used to prevent Myocardial Infarction Performed By: #### L [id number] ####Crew Supervisor: MARION CARMEN ([phone])[facility] MANGOStreamline Health SolutionsMIHAI (SWRLAB)[address] [place] [address] [place] PT Coag (PPP) [Time] 10.3 s Normal 9.0-12.0 [facility] Comment on above: Performed By: #### L [id number] ####Crew Supervisor: MARION CARMEN ([phone])[facility] [place] (SWRLAB)[address] [place] [address] [place] TROPONIN Ion 12-20-2023 Troponin I.cardiac [Mass/Vol] ng/mL Normal <0.034 [facility] Comment on above: Result Comment: ORDE R COMMENTS: Patients with high levels of Biotin oral intake (ie >5 mg/day) may have falsely decreased Troponin levels. Performed By: #### L [id number] ####Crew Supervisor: MARION CARMEN ([phone])[facility] (SWRLAB)[address] [place] [address] [place] Troponin I.cardiac [Mass/Vol ]on 12-20-2023 Interpretation and review of laboratory results Normal [facility] Patients with high levels of Biotin oral intake (ie >5 mg/day) may have falsely decreased Troponin levels. [facility] Vital signson 12-20-2023 Heart rate 73 /min bpm [facility] XR Chest Single viewon 12-19 Patient Name: ALBINA BROWN : 1940 Exam Date/Time: 12/20/2023 01:41 Procedure: XR CHEST 1 VIEW Ordering Provider: TIDWELL DOUGLAS Reason For Exam: fall. trauma protocol. no obvious injuries PORTABLE CHEST CLINICAL INDICATION: Trauma with pain TECHNIQUE: Portable AP COMPARISON: 1023 FINDINGS: Heart is upper normal size. Double density overlies the left right heart border, corresponding to a hiatus hernia measuring up to 12.5 cm. The lungs are clear. There is no pneumothorax. The costophrenic angles are sharp. Degenerative change of the thoracic spine is noted. [facility] Tab Beaulieu MD - 12/20/2023 Patient Name: ALBINA BROWN : 1940 [facility]#: [id number] Exam Date/Time: 12/20/2023 01:41 Procedure: XR CHEST 1 VIEW Ordering Provider: TIDWELL DOUGLAS Reason For Exam: fall. trauma protocol. no obvious injuries PORTABLE CHEST CLINICAL INDICATION: Trauma with pain TECHNIQUE: Portable AP COMPARISON: 1023 FINDINGS: Heart is upper normal size. Double density overlies the left right heart border, corresponding to a hiatus hernia measuring up to 12.5 cm. The lungs are clear. There is no pneumothorax. The costophrenic angles are sharp. Degenerative change of the thoracic spine is noted. IMPRESSION: No traumatic abnormality throughout the chest. Hiatus hernia PELVIS: TECHNIQUE: AP COMPARISON: 06/02/2013 FINDINGS: There is no evidence for fracture or dislocation. Narrowing about the hip joints. Some narrowing about the sacroiliac joints. Degenerative change within the lower lumbar spine. Osteitis pubis. No bone lesion is identified. There is no soft tissue abnormality. IMPRESSION: No traumatic abnormality throughout the pelvis. Degenerative change. CT HEAD: CLINICAL INDICATION: Trauma with head and neck pain TECHNIQUE: Transaxial CT sequence performed through the head with 3 mm reconstruction. Sagittal and Coronal reconstruction images included. Dose reduction employed with automated exposure control. COMPARISON: 02/27/2023 FINDINGS: Ventricles and Extra-axial spaces: Generalized enlargement of the ventricles and sulci. No abnormal extracerebral collection identified. Cerebral and cerebellar parenchyma: Periventricular low attenuation areas bilaterally, corresponding to chronic microvascular ischemic change. No additional focal mass lesion or evidence for acute infarct throughout the cerebrum or cerebellum. 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 Mucosal thickening remains in the left maxillary sinus and left ethmoid air cells. Mastoid air cells: Normal Visualized Orbits: Normal Calvarium and skull base: No CT evidence for skull fracture. Left posterior parietal scalp hematoma IMPRESSION: Diminished cerebral volume and evidence of chronic microvascular ischemic change without acute intracranial abnormality. CT CERVICAL SPINE: TECHNIQUE: Transaxial sequence through the cervical spine. Coronal and sagittal reconstructions included. Dose reduction was employed with automated exposure control. COMPARISON: None FINDINGS: Cervical vertebrae and joints: No fracture, subluxation or other malalignment. Moderate generalized facet hypertrophy. Some further minor degenerative change about the uncovertebral joints from C3-C4 through C6-C7. No bone lesion identified. Intervertebral disc spaces and spinal canal: Disc space narrowing and minor spurring particular at C3-C4 and C4-C5 as well as C6-C7. No bony encroachment upon the cervical spinal canal. Soft tissues: Surrounding soft tissues of the neck are unremarkable on this noncontrast study. Other: Lung apices are unremarkable. IMPRESSION: No acute abnormality identified throughout the cervical spine. Cervical spondylosis Report Dictated on Electronically Signed By: Tab Beaulieu MD Electronically Signed Date/Time: 12/20/2023 2:11 AM EDT [facility] Radiology Study observation (narrative) [facility] alth XR Pelvis 1 or 2 Viewson Patient Name: ALBINA BROWN : 1940 Exam Date/Time: 12/20/2023 01:41 Procedure: XR PELVIS 1-2 VIEWS Ordering Provider: TIDWELL DOUGLAS Reason For Exam: fall. trauma protocol. no obvious injuries PORTABLE CHEST CLINICAL INDICATION: Trauma with pain TECHNIQUE: Portable AP COMPARISON: 1023 FINDINGS: Heart is upper normal size. Double density overlies the left right heart border, corresponding to a hiatus hernia measuring up to 12.5 cm. The lungs are clear. There is no pneumothorax. The costophrenic angles are sharp. Degenerative change of the thoracic spine is noted. [facility] Tab Beaulieu MD - 12/20/2023 Patient Name: ALBINA BROWN : 1940 Exam Date/Time: 12/20/2023 01:41 Procedure: XR PELVIS 1-2 VIEWS Ordering Provider: TIDWELL DOUGLAS Reason For Exam: fall. trauma protocol. no obvious injuries PORTABLE CHEST CLINICAL INDICATION: Trauma with pain TECHNIQUE: Portable AP COMPARISON: 1023 FINDINGS: Heart is upper normal size. Double density overlies the left right heart border, corresponding to a hiatus hernia measuring up to 12.5 cm. The lungs are clear. There is no pneumothorax. The costophrenic angles are sharp. Degenerative change of the thoracic spine is noted. IMPRESSION: No traumatic abnormality throughout the chest. Hiatus hernia PELVIS: TECHNIQUE: AP COMPARISON: 06/02/2013 FINDINGS: There is no evidence for fracture or dislocation. Narrowing about the hip joints. Some narrowing about the sacroiliac joints. Degenerative change within the lower lumbar spine. Osteitis pubis. No bone lesion is identified. There is no soft tissue abnormality. IMPRESSION: No traumatic abnormality throughout the pelvis. Degenerative change. CT HEAD: CLINICAL INDICATION: Trauma with head and neck pain TECHNIQUE: Transaxial CT sequence performed through the head with 3 mm reconstruction. Sagittal and Coronal reconstruction images included. Dose reduction employed with automated exposure control. COMPARISON: 02/27/2023 FINDINGS: Ventricles and Extra-axial spaces: Generalized enlargement of the ventricles and sulci. No abnormal extracerebral collection identified. Cerebral and cerebellar parenchyma: Periventricular low attenuation areas bilaterally, corresponding to chronic microvascular ischemic change. No additional focal mass lesion or evidence for acute infarct throughout the cerebrum or cerebellum. 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 Mucosal thickening remains in the left maxillary sinus and left ethmoid air cells. Mastoid air cells: Normal Visualized Orbits: Normal Calvarium and skull base: No CT evidence for skull fracture. Left posterior parietal scalp hematoma IMPRESSION: Diminished cerebral volume and evidence of chronic microvascular ischemic change without acute intracranial abnormality. CT CERVICAL SPINE: TECHNIQUE: Transaxial sequence through the cervical spine. Coronal and sagittal reconstructions included. Dose reduction was employed with automated exposure control. COMPARISON: None FINDINGS: Cervical vertebrae and joints: No fracture, subluxation or other malalignment. Moderate generalized facet hypertrophy. Some further minor degenerative change about the uncovertebral joints from C3-C4 through C6-C7. No bone lesion identified. Intervertebral disc spaces and spinal canal: Disc space narrowing and minor spurring particular at C3-C4 and C4-C5 as well as C6-C7. No bony encroachment upon the cervical spinal canal. Soft tissues: Surrounding soft tissues of the neck are unremarkable on this noncontrast study. Other: Lung apices are unremarkable. IMPRESSION: No acute abnormality identified throughout the cervical spine. Cervical spondylosis Report Dictated on Electronically Signed By: Tab Beaulieu MD Electronically Signed Date/Time: 12/20/2023 2:11 AM EDT [facility] Radiology Study observation (narrative) [facility] ED Provider Noteon ED Provider Note EMERGENCY DEPARTMENT ENCOUNTER Pt Name: Albina Brown Birthdate 1940 Date of evaluation: 12/19/2023 ED Provider: Yen Tidwell MD CHIEF COMPLAINT Chief Complaint Patient presents with Fall Head Injury Hematoma s/p fall today HISTORY OF PRESENT ILLNESS (Location/Symptom, Timing/Onset, Context/Setting, Quality, Duration, Modifying Factors, Severity) Note limiting factors. I wore appropriate PPE for the entirety of this encounter. HPI Albina Brown is a 83 y.o. who presents to the emergency department with a trip and fall at her longterm Patient has a history of dementia, failure to thrive in adult, debility. She has a cane at home but she often does not use it. She says her doctor told her that she should use it but she says the most the time she feels pretty stable without the cane. She does not walk with a walker. She takes aspirin ONLY. Past medical history of anxiety depression past surgical history of wisdom tooth extraction bilateral tubal ligation and cataract extraction. Does not smoke does not drink. Family history is unknown. According to EMS, today she had a trip and fall at [facility] while not using her cane. The patient was awake the entire time and immediately called for help. Nursing staff was at the patient's side momentarily and she was awake and alert the entire time. She is at her neurological baseline of being pleasantly demented, she is oriented to person and place but not time. She has an occipital hematoma on the left side of her posterior scalp. She has poor short-term memory. EMS reports that this is her neurological baseline. She has no neck pain no back pain. She denies any chest pain or palpitations prior to the fall. She denies any chest pain or rib cage pain now. She denies any shortness of breath before or after the fall. Denies any abdominal pain before or after the fall. No nausea vomiting or diarrhea. Denies any dysuria, is wearing a diaper. Afebrile, normotensive, normal heart rate. Denies any injury to the extremities and is able to move all 4 extremities without pain. Smiling laughing joking, in good spirits despite circumstances. Review of systems limited by dementia, history obtained through combination of chart review, interview with patient, and EMS report. Nursing Notes were reviewed. Limitations to history: Dementia Outside historians: Chart review and EMS report REVIEW OF SYSTEMS Review of Systems Review of systems limited by dementia, history obtained through combination of chart review, interview with patient, and EMS report. PAST MEDICAL HISTORY Past Medical History: Diagnosis Date Acid reflux Anxiety Breast cancer (HCC) Hyperlipidemia SURGICAL HISTORY Past Surgical History: Procedure Laterality Date BREAST BIOPSY BREAST LUMPECTOMY 11/21/2019 CATARACT EXTRACTION COLONOSCOPY TUBAL LIGATION WISDOM TOOTH EXTRACTION CURRENT MEDICATIONS Previous Medications ASPIRIN 81 MG CHEWABLE TABLET Chew 81 mg in the morning. CITALOPRAM (CELEXA) 20 MG TABLET Take 40 mg by mouth daily. MEMANTINE (NAMENDA) 5 MG TABLET Take 1 tablet (5 mg) by mouth 2 times daily for 7 doses. MEMANTINE (NAMENDA) 5 MG TABLET Take 1 tablet (5 mg) by mouth daily for 7 doses. Do not start before March 10, 2023. TAMOXIFEN (NOLVADEX) 20 MG TABLET Take 1 tablet (20 mg total) by mouth daily. ALLERGIES Patient has no known allergies. FAMILY HISTORY No family history on file. SOCIAL HISTORY Social History Socioeconomic History Marital status: Tobacco Use Smoking status: Never Smokeless tobacco: Never Vaping Use Vaping status: Never Used Substance and Sexual Activity Alcohol use: Never Drug use: Never Social Determinants of Health Transportation Needs: No Transportation Needs (02/27/2023) PRAPARE - Transportation Lack of Transportation (Medical): No Lack of Transportation (Non-Medical): No Intimate Partner Violence: Not At Risk (02/27/2023) Humiliation, Afraid, Rape, and Kick questionnaire Fear of Current or Ex-Partner: No Emotionally Abused: No Physically Abused: No Sexually Abused: No Housing Stability: Low Risk (02/27/2023) Housing Stability Vital Sign Unable to Pay for Housing in the Last Year: No Number of Places Lived in the Last Year: 1 Unstable Housing in the Last Year: No PHYSICAL EXAM ED Triage Vitals [12/19/23 2325] Temp Heart Rate Resp BP 37.5 ?C (99.5 ?F) 77 18 125/67 SpO2 Temp Source Heart Rate Source Patient Position 98 % Oral -- -- BP Location FiO2 (%) -- -- Physical Exam General: WDWN elderly adult in NAD. Non-toxic appearing HENT: Occipital hematoma present on the left side of the patient's scalp, no laceration to suture. No active expansion. EOMI with no erythema, swelling or discharge. TMs normal bilaterally with no hemotympanum Nares normal bilaterally with no epistaxis No CSF rhinorrhea or otorrhea No raccoon's eyes (more content not included)... 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 Tumor measured 1.5 cm. Lymph nodes not evaluated at the time of surgery (given favorable prognosis, no additional lymph node evaluation planned). 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 Given favorable risk, older age, hormone receptor positive disease; elected against adjuvant radiation. Initiated adjuvant tamoxifen December 2019 (elected against aromatase inhibitor given favorable risk with baseline osteopenia and history of falls). New right-sided breast mass measuring 0.5 cm on mammogram/ultrasound . Status post core needle biopsy December 2021 with atypical papillary lesion. She declined excisional biopsy given increasing dementia. Other PMHx 1. DLD 2. GERD 3. Anxiety 4. Dementia Social History Social History Tobacco Use Smoking status: Never Smokeless tobacco: Never Family History Sister - breast ca at 70 yo Interval History: Compliant with tamoxifen. Memory/dementia gradually progressing over time and she will be moving to a snf facility in the near future. Denies new breast lesions or masses. Physical exam: Vitals reviewed Alert, NAD, ecog 3 In wheelchair at today's visit No neck or axillary lymphadenopathy appreciated bilaterally Bilateral breast without mass or lymphadenopathy appreciated bilaterally Imaging/Labs: Dexa 12/22/19: osteopenia (t score -1.7) Assessment/Plan: 83 y.o. with PMHx as above 1. 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 Tumor measured 1.5 cm. [place] lymph nodes not evaluated at the time of surgery (given favorable prognosis, no additional lymph node evaluation planned). 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 Given favorable risk, older age, hormone receptor positive disease; elected against adjuvant radiation. Initiated adjuvant tamoxifen December 2019 (elected against aromatase inhibitor given favorable risk with baseline osteopenia and history of falls). 2. Have discussed side effects of tamoxifen 20 mg p.o. daily including but not limited to bone/joint pain, hot flashes, slight increased risk of uterine cancer, stroke and thrombosis, vision changes. Expected 5 yr breast cancer specific OS > 95%. Treatment is being given with curative intent and would continue for up to 5-10 years (potentially 5 years based on lower risk disease and depending on tolerance). Given favorable risk, absolute benefit of tamoxifen in decreasing recurrence or developing second breast cancer 3-4%. 3. Utility of annual surveillance mammography limited given older age with dementia and impaired functional status. 4. Have encouraged physical activity (as tolerated), healthy diet, limiting alcohol intake, maintaining healthy body weight. 5. Follow up 1 year There are no other issues with medication compliance, stressors, depression, side effects of therapy other than as noted above. Discussion congruent with NCCN guidelines if applicable. she consents to treatment. Shared decision making was performed. Normal [facility] 08-04-2023 [facility] Telephone (LILLYYL) ALBINA BROWN ([id number]) 1940 F Date Time Provider Department 08/04/23 MADYSON COLLINSYL During your visit today, we recorded the following information about you: Donya Lackey 08/04/2023 10:28 AM Signed Consult to physical therapy Recurrent falls Confirm [id number] Donya Lackey Allergies As of Date: 08/04/2023 (No Known Allergies) Date Reviewed: 07/28/2023 Reviewed by: Kailyn Mead LPN - Fully Assessed Reason for Visit: Consult [502] Cmt: Consult to physical therapy, recurrent falls confirm [id number] Prescriptions as of 08/04/2023 - QUEtiapine (SEROQUEL) 25 mg tablet Take 1 tablet by mouth daily at bedtime. - donepezil (ARICEPT) 10 mg tablet take 1 tablet by mouth everyday at bedtime - benzonatate (TESSALON PERLES) 100 mg capsule Take 1 capsule by mouth three times a day as needed for cough. - omeprazole (PRILOSEC) 20 mg capsule Take 1 capsule by mouth once daily. - memantine XR (NAMENDA XR) 21 mg CSpX Take 1 capsule by mouth once daily. - tolterodine ER (DETROL LA) 2 mg 24 hr capsule Take 1 capsule by mouth once daily. - citalopram (CELEXA) 40 mg tablet TAKE 1 TABLET BY MOUTH EVERY DAY - omeprazole (PRILOSEC) 20 mg capsule - donepezil (ARICEPT) 23 mg tablet Take 1 tablet by mouth daily at bedtime. - donepezil (ARICEPT) 5 mg tablet Take 1 tablet by mouth daily at bedtime. - meclizine (ANTIVERT) 25 mg tab Take 1 tablet by mouth three times daily as needed. - multivitamin (MULTIPLE VITAMINS ORAL) Take 1 tablet by mouth once daily. (CENTRUM SILVER ADULT 50+ PO) - ascorbic acid, vitamin C, (VITAMIN C) 500 mg tablet Take 500 mg by mouth. - aspirin 81 mg chewable tablet Take 81 mg by mouth once daily. - Cholecalciferol, Vitamin D3, 25 mcg (1,000 unit) cap Take 1 capsule by mouth. - simvastatin (ZOCOR) 20 mg tablet Take 20 mg by mouth daily at bedtime. - tamoxifen (NOLVADEX) 20 mg tablet Take 20 mg by mouth once daily. - ZINC ACETATE ORAL Take 50 mg by mouth once daily. - vitamin B complex (B COMPLEX-VITAMIN B12 ORAL) Take 1,000 mg by mouth once daily. Meds Comments as of 07/05/2021: 07/05/21 Patient did not bring a list, states all medications are the same. 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 Hallucinations [R44.3] 06/21/2023 Systolic murmur [R01.1] 06/21/2023 Encounter Status:Closed by DONYA LACKEY on 08/04/23 [facility] CNOVon 07-28-2023 CNOV Office Visit (FPDOYL) ALBINA BROWN ([id number]) 1940 F Date Time Provider Department 07/28/23 4:15 PM MADYSON COLLINS FPDOYL During your visit today, we recorded the following information about you: Temperature Pulse Blood pressure Weight 99.3 degrees 74/minute 148/80 80.7 kg Height 1.6 m Madyson Collins DO 08/06/2023 11:24 PM Signed [facility] [place] [place] DO [address] [place] [address] Date of Evaluation: 07/28/2023 Patient Name: Albina Brown : 1940 Chief Complaint: Patient presents with: Fall: Has had 4 falls in the last 2 1/2 months. Firs Back Pain: Low to middle back pain since first fall. Balance Nursing Intake: There are no exam notes on file for this visit. Subjective Ms. Brown is a 83 year old female who presents with the following complaint(s): The history is provided by the patient and a relative. 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 Fall Incident onset: recurrent falling. The fall occurred while walking and while standing (while in the shower). Pertinent negatives include no numbness, no hematuria and no headaches. Back Pain This is a new problem. Pertinent negatives include no chest pain, no numbness, no headaches and no weakness. Review of Systems Constitutional: Negative for fatigue and unexpected weight change. HENT: Negative for nosebleeds. Eyes: Negative for redness and visual disturbance. Respiratory: Negative for apnea, cough and shortness of breath. Cardiovascular: Negative for chest pain, palpitations and leg swelling. Genitourinary: Negative for hematuria. Musculoskeletal: Positive for back pain. Neurological: Negative for dizziness, weakness, light-headedness, numbness and headaches. Hematological: Does not bruise/bleed easily. Psychiatric/Behavior al: The patient is not nervous/anxious. History reviewed. No pertinent past medical history. PAST SURGICAL HISTORY Procedure Laterality Date BREAST SURGERY 2019 Breast cancer- left FAMILY HISTORY Problem Relation Age of Onset Hypertension Mother Cancer Father Cancer Brother Social History Tobacco Use Smoking status: Former Types: Cigarettes Smokeless tobacco: Never Vaping Use Vaping Use: Never used Substance Use Topics Alcohol use: Not Currently Drug use: Never Current Outpatient Medications Medication Sig QUEtiapine (SEROQUEL) 25 mg tablet Take 1 tablet by mouth daily at bedtime. omeprazole (PRILOSEC) 20 mg capsule Take 1 capsule by mouth once daily. tolterodine ER (DETROL LA) 2 mg 24 hr capsule Take 1 capsule by mouth once daily. citalopram (CELEXA) 40 mg tablet TAKE 1 TABLET BY MOUTH EVERY DAY meclizine (ANTIVERT) 25 mg tab Take 1 tablet by mouth three times daily as needed. multivitamin (MULTIPLE VITAMINS ORAL) Take 1 tablet by mouth once daily. (CENTRUM SILVER ADULT 50+ PO) ascorbic acid, vitamin C, (VITAMIN C) 500 mg tablet Take 500 mg by mouth. aspirin 81 mg chewable tablet Take 81 mg by mouth once daily. tamoxifen (NOLVADEX) 20 mg tablet Take 20 mg by mouth once daily. ZINC ACETATE ORAL Take 50 mg by mouth once daily. donepezil (ARICEPT) 10 mg tablet take 1 tablet by mouth everyday at bedtime (Patient not taking: Reported on 06/16/2023) benzonatate (TESSALON PERLES) 100 mg capsule Take 1 capsule by mouth three times a day as needed for cough. (Patient not taking: Reported on 06/16/2023) memantine XR (NAMENDA XR) 21 mg CSpX Take 1 capsule by mouth once daily. (Patient not taking: Reported on 03/24/2023) omeprazole (PRILOSEC) 20 mg capsule (Patient not taking: Reported on 12/12/2022) donepezil (ARICEPT) 23 mg tablet Take 1 tablet by mouth daily at bedtime. (Patient not taking: Reported on 12/12/2022) donepezil (ARICEPT) 5 mg tablet Take 1 tablet by mouth daily at bedtime. (Patient not taking: Reported on 12/12/2022) Cholecalciferol, Vitamin D3, 25 mcg (1,000 unit) cap Take 1 capsule by mouth. (Patient not taking: Reported on 03/24/2023) simvastatin (ZOCOR) 20 mg tablet Take 20 mg by mouth daily at bedtime. (Patient not taking: Reported on 07/04/2022) vitamin B complex (B COMPLEX-VITAMIN B12 ORAL) Take 1,000 mg by mouth once daily. (Patient not taking: Reported on 07/28/2023) No current facility-administere d medications for this visit. I have confirmed and edited as necessary the past medical, family and social histories, HPI, and ROS obtained by others. Objective BP 148/80 Pulse 74 Temp 99.3 Ht 5' 3" (1.60m) Wt 178 lb (80.7kg) SpO2 98% BMI 31.54 kg/(m2). Physical Exam Vitals and nursing note reviewed. Constitutional: General: She is not in acute distress. Appearance: Normal appearance. She is well-developed. She is not ill-appearing. HENT: Head: Normocephalic. Right Ear: Tympanic membr (more content not included)... Normal [facility] CNOVon 06-16-2023 CNOV Office Visit (FPDOYL) ALBINA BROWN ([id number]) 1940 F Date Time Provider Department 06/16/23 1:45 PM MADYSON COLLINS FPDOYL During your visit today, we recorded the following information about you: Temperature Pulse Blood pressure Weight 97.4 degrees 74/minute 118/74 80.7 kg Height 1.6 m Madyson Collins DO 06/21/2023 11:03 PM Signed [facility] Madyson DO [address] [place] [address] Date of Evaluation: 06/16/2023 Patient Name: Albina Brown : 1940 Chief Complaint: Patient presents with: increase in confusion and aggitation: [id number] states patient is Packing her bags and thinks she lives somewhere else. Fall: Answered yes to fall question on rooming intake Nursing Intake: There are no exam notes on file for this visit. Subjective Ms. Brown is a 83 year old female who presents with the following complaint(s): The history is provided by the patient and a relative (daughter in law). 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 Mental Status Changes This is a new problem. The current episode started in the past 7 days. The problem has been unchanged. Pertinent negatives include no chest pain, coughing, fatigue or weakness. Associated symptoms comments: Visual and auditory hallucinations, not sleeping at night, difficulty getting to sleep. Increase memory loss. . Review of Systems Constitutional: Negative for fatigue and unexpected weight change. HENT: Negative for nosebleeds. Eyes: Negative for redness and visual disturbance. Respiratory: Negative for apnea, cough and shortness of breath. Cardiovascular: Negative for chest pain, palpitations and leg swelling. Neurological: Negative for dizziness, weakness and light-headedness. Hematological: Does not bruise/bleed easily. Psychiatric/Behavior al: Positive for hallucinations. The patient is not nervous/anxious. No past medical history on file. PAST SURGICAL HISTORY Procedure Laterality Date BREAST SURGERY HX 2019 Breast cancer- left FAMILY HISTORY Problem Relation Age of Onset Hypertension Mother Cancer Father Cancer Brother Social History Tobacco Use Smoking status: Former Types: Cigarettes Smokeless tobacco: Never Vaping Use Vaping Use: Never used Substance Use Topics Alcohol use: Not Currently Drug use: Never Current Outpatient Medications Medication Sig omeprazole (PRILOSEC) 20 mg capsule Take 1 capsule by mouth once daily. tolterodine ER (DETROL LA) 2 mg 24 hr capsule Take 1 capsule by mouth once daily. citalopram (CELEXA) 40 mg tablet TAKE 1 TABLET BY MOUTH EVERY DAY meclizine (ANTIVERT) 25 mg tab Take 1 tablet by mouth three times daily as needed. multivitamin (MULTIPLE VITAMINS ORAL) Take 1 tablet by mouth once daily. (CENTRUM SILVER ADULT 50+ PO) ascorbic acid, vitamin C, (VITAMIN C) 500 mg tablet Take 500 mg by mouth. aspirin 81 mg chewable tablet Take 81 mg by mouth once daily. tamoxifen (NOLVADEX) 20 mg tablet Take 20 mg by mouth once daily. ZINC ACETATE ORAL Take 50 mg by mouth once daily. vitamin B complex (B COMPLEX-VITAMIN B12 ORAL) Take 1,000 mg by mouth once daily. QUEtiapine (SEROQUEL) 25 mg tablet Take 1 tablet by mouth daily at bedtime. donepezil (ARICEPT) 10 mg tablet take 1 tablet by mouth everyday at bedtime (Patient not taking: Reported on 06/16/2023) benzonatate (TESSALON PERLES) 100 mg capsule Take 1 capsule by mouth three times a day as needed for cough. (Patient not taking: Reported on 06/16/2023) memantine XR (NAMENDA XR) 21 mg CSpX Take 1 capsule by mouth once daily. (Patient not taking: Reported on 03/24/2023) omeprazole (PRILOSEC) 20 mg capsule (Patient not taking: Reported on 12/12/2022) donepezil (ARICEPT) 23 mg tablet Take 1 tablet by mouth daily at bedtime. (Patient not taking: Reported on 12/12/2022) donepezil (ARICEPT) 5 mg tablet Take 1 tablet by mouth daily at bedtime. (Patient not taking: Reported on 12/12/2022) Cholecalciferol, Vitamin D3, 25 mcg (1,000 unit) cap Take 1 capsule by mouth. (Patient not taking: Reported on 03/24/2023) simvastatin (ZOCOR) 20 mg tablet Take 20 mg by mouth daily at bedtime. (Patient not taking: Reported on 07/04/2022) No current facility-administere d medications for this visit. I have confirmed and edited as necessary the past medical, family and social histories, HPI, and ROS obtained by others. Objective BP 118/74 Pulse 74 Temp 97.4 Ht 5' 3" (1.60m) Wt 178 lb (80.7kg) SpO2 97% BMI 31.54 kg/(m2). Physical Exam Vitals and nursing note reviewed. Constitutional: General: She is not in acute distress. Appearance: Normal appearance. She is well-developed. She is not ill-appearing. HENT: Head: Normocephalic. Right Ear: Tympanic membrane, ear canal and e (more content not included)... Normal [facility] US DVT LOWER RTon 06-16-2023 US DVT LOWER RT * * *Final Report* * * DATE OF EXAM: Jun 16 2023 5:44PM GRU 1007 - US DVT LOWER RT / PROCEDURE REASON: Generalized edema * * * * Physician Interpretation * * * * EXAMINATION: RIGHT LOWER EXTREMITY DEEP VENOUS ULTRASOUND WITH DOPPLER IMAGING CLINICAL HISTORY: Right leg edema TECHNIQUE: Grayscale with compression maneuvers, color Doppler and spectral Doppler imaging of the right proximal deep veins was performed. Grayscale with compression maneuvers of the peroneal and posterior tibial veins was performed. The right great and small saphenous veins were evaluated at their insertion to the deep system. The contralateral common femoral vein was imaged for comparison. Images were obtained and stored in a permanent archive. MQ: [id number] COMPARISON: None RESULT: RIGHT LOWER EXTREMITY PROXIMAL DEEP VEINS Distal External Iliac, Common Femoral and proximal Profunda Veins: Compression: Normal Doppler: Normal, spontaneous respirophasic flow. Normal response to augmentation. Femoral vein: Compression: Normal Doppler: Normal, spontaneous flow. Normal response to augmentation. Popliteal vein: Compression: Normal Doppler: Normal, spontaneous flow. Normal response to augmentation. CALF DEEP VEINS Peroneal veins: Normal compression. Posterior tibial veins: Normal compression. Gastrocnemius and Soleal veins: Not imaged. SUPERFICIAL VEINS Great saphenous: Patent and compressible at insertion into common femoral vein; not otherwise assessed. Small Saphenous: Patent and compressible in the proximal calf, not otherwise assessed. LEFT LOWER EXTREMITY (FOR COMPARISON) Common Femoral Vein: Compression: Normal Doppler: Normal, spontaneous respirophasic flow. Normal response to augmentation. IMPRESSION: Negative study for proximal DVT in the right lower extremity. Negative study for calf DVT in the right lower extremity. Negative study for superficial thrombophlebitis in the imaged segments of the right lower extremity. Engine Cleaner: PHILLIP Transcribe Date/Time: Jun 16 2023 5:44P Dictated by : WARREN SHEPARD MD This examination was interpreted and the report reviewed and electronically signed by: WARREN SHEPARD MD on Jun 16 2023 5:47PM EST [id number] Normal [facility] US Lower extremity vein - elia aguilera 06-16-2023 [facility] [place] 03-30-2023 FERCHO Telephone (FPDOYL) ALBINA BROWN ([id number]) 1940 F Date Time Provider Department 03/30/23 MADYSON COLLINS FPDOYL During your visit today, we recorded the following information about you: Allergies As of Date: 03/30/2023 (No Known Allergies) Date Reviewed: 03/24/2023 Reviewed by: Nicol Ventura LPN - Fully Assessed Prescriptions as of 03/30/2023 - omeprazole (PRILOSEC) 20 mg capsule Take 1 capsule by mouth once daily. - memantine XR (NAMENDA XR) 21 mg CSpX Take 1 capsule by mouth once daily. - tolterodine ER (DETROL LA) 2 mg 24 hr capsule Take 1 capsule by mouth once daily. - citalopram (CELEXA) 40 mg tablet TAKE 1 TABLET BY MOUTH EVERY DAY - omeprazole (PRILOSEC) 20 mg capsule - donepezil (ARICEPT) 10 mg tablet Take 1 tablet by mouth daily at bedtime. - donepezil (ARICEPT) 23 mg tablet Take 1 tablet by mouth daily at bedtime. - donepezil (ARICEPT) 5 mg tablet Take 1 tablet by mouth daily at bedtime. - meclizine (ANTIVERT) 25 mg tab Take 1 tablet by mouth three times daily as needed. - multivitamin (MULTIPLE VITAMINS ORAL) Take 1 tablet by mouth once daily. (CENTRUM SILVER ADULT 50+ PO) - ascorbic acid, vitamin C, (VITAMIN C) 500 mg tablet Take 500 mg by mouth. - aspirin 81 mg chewable tablet Take 81 mg by mouth once daily. - Cholecalciferol, Vitamin D3, 25 mcg (1,000 unit) cap Take 1 capsule by mouth. - simvastatin (ZOCOR) 20 mg tablet Take 20 mg by mouth daily at bedtime. - tamoxifen (NOLVADEX) 20 mg tablet Take 20 mg by mouth once daily. - ZINC ACETATE ORAL Take 50 mg by mouth once daily. - vitamin B complex (B COMPLEX-VITAMIN B12 ORAL) Take 1,000 mg by mouth once daily. Meds Comments as of 07/05/2021: 07/05/21 Patient did not bring a list, states all medications are the same. Problem List As Of Date 03/30/2023 Noted Resolved Hyperlipidemia, mixed [E78.2] 11/29/2020 Screening for thyroid disorder [Z13.29] 11/29/2020 GERD without esophagitis [K21.9] 11/29/2020 Nausea [R11.0] 11/29/2020 Anxiety with depression [F41.8] 11/29/2020 Malignant neoplasm of lower-outer quadrant of l*12/15/2019 Abnormal mammogram [R92.8] 01/15/2022 Dementia without behavioral disturbance (HCC) [*01/15/2022 Age-related cognitive decline [R41.81] 12/16/2022 Varicose veins of bilateral lower extremities w*12/16/2022 Female stress incontinence [N39.3] 12/16/2022 Encounter Status:Closed by DONYA LACKEY on 03/30/23 [facility] CNOVon 03-24-2023 CN Office Visit (FPDOYL) ALBINA BROWN ([id number]) 1940 F Date Time Provider Department 03/24/23 4:15 PM MADYSON COLLINS FPDOYL During your visit today, we recorded the following information about you: Temperature Pulse Blood pressure Weight 98.1 degrees 87/minute 124/70 77.1 kg Height 1.6 m Madyson Collins DO 03/30/2023 8:55 PM Signed Io [facility] Othello DO [address] [place] [address] Date of Evaluation: 03/24/2023 Patient Name: Albina Brown : 1940 Chief Complaint: Patient presents with: Hospital Follow Up: [facility] Fall: Answered yes to falls in last year. Having PT in the home 3 x a week recently lost in January Referral Request: Used to have a hearing aid for left ear and quit working. Nursing Intake: There are no exam notes on file for this visit. Subjective Ms. Brown is a 82 year old female who presents with the following complaint(s): The history is provided by the patient and a relative (daughter in law). GERD She complains of heartburn. She reports no chest pain or no coughing. This is a chronic problem. The current episode started more than 1 year ago. Pertinent negatives include no fatigue. Hypercholesterolemia This is a chronic problem. The current episode started more than 1 year ago. Pertinent negatives include no chest pain or shortness of breath. Depression Pertinent negatives include no weakness. This is a chronic problem. The problem has been gradually improving since onset. Suspected agents: recent loss of . Review of Systems Constitutional: Negative for fatigue and unexpected weight change. HENT: Positive for hearing loss. Negative for nosebleeds. Eyes: Negative for redness and visual disturbance. Respiratory: Negative for apnea, cough and shortness of breath. Cardiovascular: Negative for chest pain, palpitations and leg swelling. Gastrointestinal: Positive for heartburn. Neurological: Negative for dizziness, weakness and light-headedness. Hematological: Does not bruise/bleed easily. Psychiatric/Behavior al: Positive for depression. The patient is not nervous/anxious. No past medical history on file. PAST SURGICAL HISTORY Procedure Laterality Date BREAST SURGERY 2019 Breast cancer- left FAMILY HISTORY Problem Relation Age of Onset Hypertension Mother Cancer Father Cancer Brother Social History Tobacco Use Smoking status: Former Types: Cigarettes Smokeless tobacco: Never Vaping Use Vaping Use: Never used Substance Use Topics Alcohol use: Not Currently Drug use: Never Current Outpatient Medications Medication Sig tolterodine ER (DETROL LA) 2 mg 24 hr capsule Take 1 capsule by mouth once daily. citalopram (CELEXA) 40 mg tablet TAKE 1 TABLET BY MOUTH EVERY DAY meclizine (ANTIVERT) 25 mg tab Take 1 tablet by mouth three times daily as needed. multivitamin (MULTIPLE VITAMINS ORAL) Take 1 tablet by mouth once daily. (CENTRUM SILVER ADULT 50+ PO) ascorbic acid, vitamin C, (VITAMIN C) 500 mg tablet Take 500 mg by mouth. aspirin 81 mg chewable tablet Take 81 mg by mouth once daily. tamoxifen (NOLVADEX) 20 mg tablet Take 20 mg by mouth once daily. ZINC ACETATE ORAL Take 50 mg by mouth once daily. vitamin B complex (B COMPLEX-VITAMIN B12 ORAL) Take 1,000 mg by mouth once daily. omeprazole (PRILOSEC) 20 mg capsule Take 1 capsule by mouth once daily. memantine XR (NAMENDA XR) 21 mg CSpX Take 1 capsule by mouth once daily. (Patient not taking: Reported on 03/24/2023) omeprazole (PRILOSEC) 20 mg capsule (Patient not taking: Reported on 12/12/2022) donepezil (ARICEPT) 10 mg tablet Take 1 tablet by mouth daily at bedtime. (Patient not taking: Reported on 03/24/2023) donepezil (ARICEPT) 23 mg tablet Take 1 tablet by mouth daily at bedtime. (Patient not taking: Reported on 12/12/2022) donepezil (ARICEPT) 5 mg tablet Take 1 tablet by mouth daily at bedtime. (Patient not taking: Reported on 12/12/2022) Cholecalciferol, Vitamin D3, 25 mcg (1,000 unit) cap Take 1 capsule by mouth. (Patient not taking: Reported on 03/24/2023) simvastatin (ZOCOR) 20 mg tablet Take 20 mg by mouth daily at bedtime. (Patient not taking: Reported on 07/04/2022) No current facility-administere d medications for this visit. I have confirmed and edited as necessary the past medical, family and social histories, HPI, and ROS obtained by others. Objective BP 124/70 Pulse 87 Temp 98.1 Ht 5' 3" (1.60m) Wt 170 lb (77.1kg) SpO2 97% BMI 30.12 kg/(m2). Physical Exam Vitals and nursing note reviewed. Constitutional: General: She is not in acute distress. Appearance: Normal appearance. She is well-developed. She is not ill-appearing. HENT: Head: Normocephalic. (more content not included)... Normal [facility] [place] 03-09-2023 [facility] Telephone (LILLYYL) ALBINA BROWN ([id number]) 1940 F Date Time Provider Department 03/09/23 MADYSON COLLINS During your visit today, we recorded the following information about you: Albania Perez 03/09/2023 3:57 PM Signed Beata from [facility] left a voicemail on the front end software engineer line today 03/09/2023 @ 10:06am PH: [phone] Pt was discharged from the hospital with an order to resume snf 1 x week for the next 6 weeks. Pt also has a PT order and social evaluation pending. 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 - memantine XR (NAMENDA XR) 21 mg CSpX Take 1 capsule by mouth once daily. - tolterodine ER (DETROL LA) 2 mg 24 hr capsule Take 1 capsule by mouth once daily. - citalopram (CELEXA) 40 mg tablet TAKE 1 TABLET BY MOUTH EVERY DAY - omeprazole (PRILOSEC) 20 mg capsule - donepezil (ARICEPT) 10 mg tablet Take 1 tablet by mouth daily at bedtime. - donepezil (ARICEPT) 23 mg tablet Take 1 tablet by mouth daily at bedtime. - donepezil (ARICEPT) 5 mg tablet Take 1 tablet by mouth daily at bedtime. - meclizine (ANTIVERT) 25 mg tab Take 1 tablet by mouth three times daily as needed. - multivitamin (MULTIPLE VITAMINS ORAL) Take 1 tablet by mouth once daily. (CENTRUM SILVER ADULT 50+ PO) - ascorbic acid, vitamin C, (VITAMIN C) 500 mg tablet Take 500 mg by mouth. - aspirin 81 mg chewable tablet Take 81 mg by mouth once daily. - Cholecalciferol, Vitamin D3, 25 mcg (1,000 unit) cap Take 1 capsule by mouth. - simvastatin (ZOCOR) 20 mg tablet Take 20 mg by mouth daily at bedtime. - tamoxifen (NOLVADEX) 20 mg tablet Take 20 mg by mouth once daily. - ZINC ACETATE ORAL Take 50 mg by mouth once daily. - vitamin B complex (B COMPLEX-VITAMIN B12 ORAL) Take 1,000 mg by mouth once daily. Meds Comments as of 07/05/2021: 07/05/21 Patient did not bring a list, states all medications are the same. Problem List As Of Date 03/09/2023 Noted Resolved Hyperlipidemia, mixed [E78.2] 11/29/2020 Screening for thyroid disorder [Z13.29] 11/29/2020 GERD without esophagitis [K21.9] 11/29/2020 Nausea [R11.0] 11/29/2020 Anxiety with depression [F41.8] 11/29/2020 Malignant neoplasm of lower-outer quadrant of l*12/15/2019 Abnormal mammogram [R92.8] 01/15/2022 Dementia without behavioral disturbance (HCC) [*01/15/2022 Age-related cognitive decline [R41.81] 12/16/2022 Varicose veins of bilateral lower extremities w*12/16/2022 Female stress incontinence [N39.3] 12/16/2022 Encounter Status:Closed by ALBANIA PEREZ on 04/02/23 [facility] CARECOORDon 03-06-2023 [facility]ORD [facility] Site of Care Admission Date: 02/27/2023 07:50 PM Patient Name: ALBINA BROWN Location: [address] [id number] Date of : 1940 Placement Information Referral Type:Home Health Care Services - Resume Referral ID:[id number] Provider Name:[facility] Address 1:Karina Haskins [facility] Address 2: City:[place] Selection Factors:Active with Agency State:[place] Normal [facility] follow up. Patient has been discharged. Notified patient's daughter in law, Renetta of this. She plans to be at hospital to moss picker patient at 1 pm. States that she is OK with patient discharging home today and resuming [facility] services. Renetta also states that her Namenda dose was lowered and she would like either a hard script or the script to be sent to her home pharmacy; [facility]. Updated RN of this. Attempted to speak with patient's waiver service technicianClair. Left voicemail requesting call back. No other needs at this time. SW remains available if any other needs or concerns arise. [facility] follow up. Received a voicemail from patient's daughter in , Renetta. She will be at hospital today at 1 pm to moss picker patient if patient is ready for discharge. Epic chat sent to Dr. Diaz about discharge today. Will follow. [facility] Progress Noteon 03-06-2023 Progress Note PHYSICAL THERAPY [facility] Treatment Note Name/MRN: Albina Brown ([id number]) Date of : 1940 Age: 82 y.o. Room/Bed: [facility]153/[facility]153 B Visit #: 2 out of 4 visits Discharge Recommendation: Home with Home PT and Home with Assist PRN Equipment Needed: none Prior Level of Function ADL Assistance: Independent Ambulation Assistance: Independent Transfer Assistance: Independent Assessment Pt is making slow progress toward PT goals but continues to be limited by decreased overall balance and decreased safety awareness. Pt completed bed mobility with SBA, transfers with SBA, and ambulation with FWW with CGA. Pt would benefit from continued skilled PT to address current deficts and improve safety. Recommend [facility] PT and assist PRN. Subjective Patient agreeable to therapy. Observation: no lines present Pain: Pt denies any current pain. Medical Precautions: No active isolations Proper PPE donned/doffed in accordance with facility standards. Fall Risk: Jim Fall Risk Score: 85 (High Risk) Precautions/Restrict ions: N/A Overall Cognitive Status: Exceptions - Safety judgement: decreased awareness of need for assistance and decreased awareness of need for safety - Problem solving: assistance required to generate solutions, assistance required to identify errors made, and decreased awareness of errors - Insights: decreased awareness of deficits Family/Caregiver Present: none Objective Ambulation Ambulation 1 Assistive device(s) used: front wheeled walker Assist level: Contact Guard Distance (ft): 115' x1 Quality of gait: reciprocal stepping, shuffling, slow delmer, decreased toe clearance, decreased stride length. CGA provided to monitor stability and safety with FWW. Pt required cues for appropriate proximity to FWW and safety during directional changes. Edu regarding benefits of use of FWW to decrease risk for falls. No LOB. Transfers/Mobility Sit to stand: SBA Stand to sit: SBA From EOB to FWW. Pt demos proper hand placement and good eccentric control. SBA for safety however no LOB or unsteadiness noted. Device(s) used: front wheeled walker Bed Mobility Supine to sit: SBA Sit to supine: SBA With HOB slightly elevated and use of bed rail. Verbal cues for proper sequencing. Increased time required to perform without physical assist. Pt denied dizziness with positional changes. Plan Continue acute PT per plan of care. Safety/Education Safety Safety Devices in place: All fall risk precautions in place, call light within reach, left in bed, bed alarm in place, gait belt, and patient at risk for falls Restraints: No Education Education Given To: patient Education Provided: PT Role, PT Goals, Gait Training, Plan of Care, and Equipment Education Method: Verbal Barriers to Learning: None Education Outcome: Verbalized Understanding, Demonstrated Understanding, and Continued Education Needed Outcome Measures AM-PAC AM-PAC Inpatient Mobility Raw Score (No Stairs) : 19 Goals Patient Stated Goal: Get back home. Encounter Problems Encounter Problems (Active) Mobility Patient will ambulate 150 feet with SBA and no assistive device in order to improve safety and independence with mobility. (Progressing) Start: 03/01/23 Expected End: 03/08/23 Patient will ascend and descend 5 stairs with one railing and CGA in order to safely negotiate home. (Not Addressed) Start: 03/01/23 Expected End: 03/08/23 Transfers Patient will complete functional transfer with no assistive device with modified independence in order to prepare for ambulation. (Progressing) Start: 03/01/23 Expected End: 03/08/23 Therapy Time Individual Co-treatment Time In 0834 Time Out 0853 Minutes 19 Timed Code Treatment Minutes: 19 Minutes (x1 gait) Mary Bunch, CASING TRIMMER Normal [facility] BASIC METABOLIC PANELon 11- Anion gap [Moles/Vol] 2 mmol/L Low 3-13 [facility] Comment on above: Performed By: #### L AB15 ####Crew Supervisor: VLADIMIR GALLARDO ([id number])[facility] ([facility])[address] [place] [address] Calcium [Mass/Vol] 8.6 mg/dL Normal 8.4-10.4 [facility] Comment on above: Performed By: #### L AB15 ####Crew Supervisor: VLADIMIR GALLARDO ([phone])[facility] ([facility])[address] Chloride [Moles/Vol] 109 mmol/L High 98-107 [facility] Comment on above: Performed By: #### L AB15 ####Crew Supervisor: VLADIMIR GALLARDO ([phone])[facility] ([facility])[address] CO2 [Moles/Vol] 25 mmol/L Normal 22-30 [facility] Comment on above: Performed By: #### L AB15 ####Crew Supervisor: VLADIMIR GALLARDO ([phone])[facility] ([facility])[address] Creatinine [Mass/Vol] 0.69 mg/dL Normal 0.52-1.04 [facility] Comment on above: Performed By: #### L AB15 ####Crew Supervisor: VLADIMIR GALLARDO ([phone])[facility]USBill [facility] ([facility])[address] [place] [address] [place] GLOMERULAR FILTRATION RATE ML/MIN/1.73 SQ M.PREDICTED 87.3 mL/min/1.73m*2 Normal >60.0 [facility] Comment on above: Result Comment: Calc ulation based on the Chronic Kidney Disease Epidemiology Collaboration (CKD-EPI) equation refit without adjustment for race Performed By: #### L AB15 ####Crew Supervisor: VLADIMIR GALLARDO ([phone])[facility]USBill [facility] ([facility])[address] Glucose [Mass/Vol] 96 mg/dL Normal 70-100 [facility] Comment on above: Performed By: #### L AB15 ####Crew Supervisor: VLADIMIR GALLARDO ([phone])[facility] ([facility])[address] [place] [address] [place] Potassium [Moles/Vol] 4.3 mmol/L Normal 3.5-5.1 [facility] Comment on above: Performed By: #### L AB15 ####Crew Supervisor: VLADIMIR GALLARDO ([phone])[facility] ([facility])[address] [place] [address] [place] Sodium [Moles/Vol] 136 mmol/L Normal 135-145 [facility] Comment on above: Performed By: #### L AB15 ####Crew Supervisor: VLADIMIR GALLARDO ([phone])[facility] ([facility])[address] [place] [address] [place] Urea nitrogen [Mass/Vol] 19 mg/dL High 7-17 [facility] Comment on above: Performed By: #### L AB15 ####Crew Supervisor: VLADIMIR GALLARDO ([id number])[facility] ([facility])[address] Basic metabolic 1998 panelon 03-05-2023 Anion gap [Moles/Vol] 2 mmol/L Low 3 - 13 mmol/L [facility] Calcium [Mass/Vol] 8.6 mg/dL 8.4 - 10. 4 mg/dL [facility] Chloride [Moles/Vol] 109 mmol/L High 98 - 10 7 mmol/L [facility] CO2 [Moles/Vol] 25 mmol/L 22 - 30 mmol/L [facility] Creatinine [Mass/Vol] 0.69 mg/dL 0.52 - 1.04 mg/dL [facility] GFR/1.73 sq M.predicted MDRD (S/P/Bld) [Vol rate/Area] 87.3 mL/min/{1.73_m2} - PINF [facility] Comment on above: Calculation based on the Chronic Kidney Disease Epidemiology Collaboration (CKD-EPI) equation refit without adjustment for race Glucose [Mass/Vol] 96 mg/dL 70 - 100 mg/dL [facility] Interpretation and review of laboratory results Abnormal [facility] Potassium [Moles/Vol] 4.3 mmol/L 3.5 - 5.1 mmol/L [facility] Sodium [Moles/Vol] 136 mmol/L 135 - 145 mmol/L [facility] Urea nitrogen [Mass/Vol] 19 mg/dL High 7 - 17 mg/d L [facility] CARECOORDon 03-05-2023 [facility] follow up. Received a phone call from patient's [facility] waiver service technician, Clair ([phone]). She states that patient has a emergency response button with GPS, 1 day/week at the [facility], multiple meal delivery; 3 days a week, and as of today start of care of 20 hours of aide service during the week. Clair states that she received a phone call from patient's assigned APS worker, Kraig. States that APS is concerned about patient being left home alone for long periods of time. Clair states that patient often refuses PT and OT to come into home and refuses to go to [facility]. Clair states that patient refuses when she is feeling overly tired and does not want to do much. Clair states that a potential idea for patient is a respite stay and she could coordinate this if the patient and family was willing. Clair requesting to be updated when patient is planned for discharge. Spoke with [id number] via phone to discuss discharge planning. Renetta states that she is caught off guard and does not want to patient to be discharged today. States that she will need to arrange for services for the aide to be at patient's home. Renetta states that she would be interested in respite but is not sure how it would be paid for. Explained to daughter in law that respite stays can be coordinated either in the community or sometimes the hospital depending on if a chosen facility has availability. Gpwmfmap-iy-krm states that [facility] is close and that would be a preferred facility. Explained to zkodxgkp-hr-rcm that social work can talk with admissions to determine how respite stay is paid for and how long it lasts. Zixiwkmj-ct-tew okay with this. Spoke with Amanda in admissions at [facility]. Per admissions, respite stays are either billed through private pay, traditional Medicaid, or hospice. If family is willing to pay private pay for respite stays it can range anywhere between $260-$300 a day. Spoke with xwvevyrn-ud-omo Renetta again. Informed her of conversation with admissions at [facility] regarding respite stay. DNS states that she is not interested in respite stay at this time and will discuss this later in the future with [facility] waiver service technician Clair. Renetta states that she is not able to have any of patient's family or aids coordinated to be at home tonight. DNS states that she would prefer to have patient discharged tomorrow or through the weekend. Explained to her that patient has been ready for discharge for 2 days. Asked Renetta how she plans to provide 24-hour supervision over weekend. Renetta states that she will be at house with her as they are usually there every weekend. Renetta expresses that she is experiencing caregivers burnout. Provided her with emotional support and also notified her that a older adult social work specialist has been added to patient's home health care caseload. Renetta grateful for this. She states that she will talk with her (patient's son) and cozxvz-qk-bas to see if and how they can coordinate someone being at the house tomorrow if discharged tomorrow. Renetta asking about APS being involved. Explained that SW is not told why APS is involved at this time. Renetta also asking if SW notified APS of safety concerns. Explained that APS called this SW and informed them that they are involved and that there was no further information provided from APS worker. Spoke with APS worker, Kraig and provided her with an update of above. No other SW needs at this time. social work will continue to follow. Normal [facility] CBC W Auto Differential pane l (Bld)on 03-05-2023 Basophils (Bld) [#/Vol] 0.1 10*3/uL 0.0 - 0.2 10*3/uL [facility] Basophils/100 WBC (Bld) 0.8 % 0.0 - 2.0 % [facility] Eosinophils (Bld) [#/Vol] 0.2 10*3/uL 0. 0 - 0.5 10*3/uL [facility] Eosinophils/100 WBC (Bld) 2.4 % 1.0 - 6.0 % [facility] Erythrocyte distribution width (RBC) [Ratio] 13.1 % 11.5 - 14.5 % [facility] Hematocrit (Bld) [Volume fraction] 36.0 % 35.0 - 47.0 % [facility] Hemoglobin (Bld) [Mass/Vol] 11.9 g/dL 11.7 - 16.0 g/dL [facility] Interpretation and review of laboratory results Normal [facility] th Lymphocytes (Bld) [#/Vol] 2.5 10*3/uL 1. 0 - 4.3 10*3/uL [facility] Lymphocytes/100 WBC (Bld) 38.9 % 20 .0 - 40.0 % [facility] MCH (RBC) [Entitic mass] 29.8 pg 26. 0 - 34.0 pg [facility] MCHC (RBC) [Mass/Vol] 33.1 % 32.0 - 36.0 % [facility] MCV (RBC) [Entitic vol] 90.3 fL 80.0 - 98.0 fL [facility] Monocytes (Bld) [#/Vol] 0.6 10*3/uL 0.0 - 0.8 10*3/uL [facility] Monocytes/100 WBC (Bld) 9.5 % 2.0 - 10.0 % [facility] Neutrophils (Bld) [#/Vol] 3.2 10*3/uL 1. 8 - 7.0 10*3/uL [facility] Neutrophils/100 WBC (Bld) 48.4 % 40 .0 - 80.0 % [facility] Nucleated RBC/100 WBC (Bld) [Ratio] 0.0 % [facility] Platelet mean volume (Bld) [Entitic vol] 8.2 fL 7.4 - 12.4 fL [facility] Platelets (Bld) [#/Vol] 170 10*3/uL 140 - 440 10*3/uL [facility] RBC (Bld) [#/Vol] 3.98 10*6/uL 3.8 - 5.20 10*6/uL [facility] WBC (Bld) [#/Vol] 6.5 10*3/uL 3.6 - 10.7 10*3/uL [facility] CBC WITH AUTO DIFFERENTIALon 03-05-2023 Basophils (Bld) [#/Vol] 0.1 10*3/uL Normal 0.0-0.2 [facility] Comment on above: Performed By: #### L [id number] #### Crew Supervisor: MARION CARMEN ([phone]) [facility]) [address] [place] [address] Basophils/100 WBC (Bld) 0.8 % Normal 0.0-2.0 [facility] Comment on above: Performed By: #### L [id number] #### Crew Supervisor: MARION CARMEN ([phone]) [facility] ([facility]) [address] [place] [address] Eosinophils (Bld) [#/Vol] 0.2 10*3/uL Normal 0.0-0.5 [facility] Comment on above: Performed By: #### L [id number] #### Crew Supervisor: MARION CARMEN ([phone]) [facility] ([facility]) [address] [address] Eosinophils/100 WBC (Bld) 2.4 % Normal 1.0-6.0 [facility] Comment on above: Performed By: #### L [id number] #### Crew Supervisor: MARION CARMEN ([phone]) [facility]) [address] [address] Erythrocyte distribution width (RBC) [Ratio] 13.1 % Normal 11.5-14.5 [facility] Comment on above: Performed By: #### L [id number] #### Crew Supervisor: MARION CARMEN ([phone]) [facility]) [address] [place] [address] ERYTHROCYTE MEAN CORPUSCULAR HEMOGLOBIN CONCENTRATION (G/DL) BY AUTOMATED 33.1 % Normal 32.0-36.0 [facility] Comment on above: Performed By: #### L [id number] #### Crew Supervisor: MARION CARMEN ([phone]) [facility]) [address] [place] [place] [address] Hematocrit (Bld) [Volume fraction] 36.0 % Normal 35.0-47.0 [facility] Comment on above: Performed By: #### L [id number] #### Crew Supervisor: MARION CARMEN ([phone]) [facility]) [address] [place] [address] Hemoglobin (Bld) [Mass/Vol] 11.9 g/dL Normal 11.7-16.0 [facility] Comment on above: Performed By: #### L [id number] #### Crew Supervisor: MARION CARMEN ([phone]) [facility]) [address] [address] Lymphocytes (Bld) [#/Vol] 2.5 10*3/uL Normal 1.0-4.3 [facility] Comment on above: Performed By: #### L [id number] #### Crew Supervisor: MARION CARMEN ([phone]) [facility]) [address] [place] [place] [address] Lymphocytes/100 WBC (Bld) 38.9 % Normal 20.0-40.0 [facility] Comment on above: Performed By: #### L [id number] #### Crew Supervisor: MARION CARMEN ([phone]) [facility]) [address] [place] [address] MCH (RBC) [Entitic mass] 29.8 pg Normal 26.0-34.0 [facility] Comment on above: Performed By: #### L [id number] #### Crew Supervisor: MARION CARMEN ([phone]) [facility] ([facility]) [address] [place] [address] MCV (RBC) [Entitic vol] 90.3 fL Normal 80.0-98.0 [facility] Comment on above: Performed By: #### L [id number] #### Crew Supervisor: MARION CARMEN ([phone]) [facility]) [address] [place] [address] Monocytes (Bld) [#/Vol] 0.6 10*3/uL Normal 0.0-0.8 [facility] Comment on above: Performed By: #### L [id number] #### Crew Supervisor: MARION CARMEN ([phone]) [facility]) [address] [place] [address] Monocytes/100 WBC (Bld) 9.5 % Normal 2.0-10.0 [facility] Comment on above: Performed By: #### L [id number] #### Crew Supervisor: MARION CARMEN ([phone]) [facility]) [address] [place] [address] Neutrophils (Bld) [#/Vol] 3.2 10*3/uL Normal 1.8-7.0 [facility] Comment on above: Performed By: #### L [id number] #### Crew Supervisor: MARION CARMEN ([phone]) [facility]) [address] [place] [address] Neutrophils/100 WBC (Bld) 48.4 % Normal 40.0-80.0 [facility] Comment on above: Performed By: #### L [id number] #### Crew Supervisor: MARION CARMEN ([phone]) [facility] ([facility]) [address] [place] [address] NRBC (PER 100 WBCS) BY AUTOMATED COUNT 0.0 /100 WBCs Normal 0.0-2.0 [facility] Comment on above: Performed By: #### L [id number] #### Crew Supervisor: MARION CARMEN ([phone]) [facility] ([facility]) [address] [place] [address] Platelet mean volume (Bld) [Entitic vol] 8.2 fL Normal 7.4-12.4 [facility] Comment on above: Performed By: #### L [id number] #### Crew Supervisor: MARION CARMEN ([phone]) [facility] ([facility]) [address] [place] [address] Platelets (Bld) [#/Vol] 170 10*3/uL Normal 140-440 [facility] Comment on above: Performed By: #### L [id number] #### Crew Supervisor: MARION CARMEN ([phone]) [facility] ([facility]) [address] [place] [address] RBC (Bld) [#/Vol] 3.98 10*6/uL Normal 3.8-5.20 [facility] Comment on above: Performed By: #### L [id number] #### Crew Supervisor: MARION CARMEN ([phone]) [facility] ([facility]) [address] [place] [address] WBC (Bld) [#/Vol] 6.5 10*3/uL Normal 3.6-10.7 [facility] Comment on above: Performed By: #### L [id number] #### Crew Supervisor: MARION CARMEN ([phone]) [facility]) [address] [place] [address] IDNon 03-05-2023 IDN Problem: Knowledge Deficit Goal: Patient/family/careg iver demonstrates understanding of disease process, treatment plan, medications, and discharge instructions Outcome: Progressing Problem: Potential for Compromised Skin Integrity Goal: Skin Integrity is Maintained or Improved Outcome: Progressing Goal: Nutritional status is improving Outcome: Progressing Problem: Urinary Incontinence Goal: Perineal skin integrity is maintained or improved Outcome: Progressing Problem: Problem Interventions Goal: Promote nutritional intake Outcome: Progressing The patient is Moderately Stable - Low risk of patient condition declining or worsening The patient's goals for the shift include to go home The clinical goals for the shift include to go home Over the shift, the patient did not make progress toward the following goals. Barriers to progression include . Recommendations to address these barriers include . Normal [facility] Progress Noteon 03-05-2023 Progress Note PHYSICAL THERAPY [facility] Name/MRN: Albina Brown ([id number]) Date: 03/05/2023 Attempted to see pt. Pt lying in bed and arouses easily. Encouraged pt to participate with therapy with pt declining stating I'm not up to it. Pt non specific as to why other than feeling "blough". Again tried to encourage movement in hopes it would make her feel better but unable to convince pt to try. No treatment rendered. Kaley Toledo, CASING TRIMMER Normal [facility] BASIC METABOLIC PANELon 02-18 Anion gap [Moles/Vol] 6 mmol/L Normal 3-13 [facility] Comment on above: Performed By: #### L AB15 ####Crew Supervisor: VLADIMIR GALLARDO ([phone])[facility] ([facility])[address] [place] [address] Calcium [Mass/Vol] 8.2 mg/dL Low 8.4-10.4 [facility] Comment on above: Performed By: #### L AB15 ####Crew Supervisor: VLADIMIR GALLARDO ([phone])[facility])[address] Chloride [Moles/Vol] 108 mmol/L High 98-107 [facility] Comment on above: Performed By: #### L AB15 ####Crew Supervisor: VLADIMIR GALLARDO ([phone])[facility])[address] CO2 [Moles/Vol] 22 mmol/L Normal 22-30 [facility] Comment on above: Performed By: #### L AB15 ####Crew Supervisor: VLADIMIR GALLARDO ([phone])[facility]USBill [facility] ([facility])[address] Creatinine [Mass/Vol] 0.62 mg/dL Normal 0.52-1.04 [facility] Comment on above: Performed By: #### L AB15 ####Crew Supervisor: VLADIMIR GALLARDO ([phone])[facility]AMPUSBill [facility] ([facility])[address] GLOMERULAR FILTRATION RATE ML/MIN/1.73 SQ M.PREDICTED 89.6 mL/min/1.73m*2 Normal >60.0 [facility] Comment on above: Result Comment: Calc ulation based on the Chronic Kidney Disease Epidemiology Collaboration (CKD-EPI) equation refit without adjustment for race Performed By: #### L AB15 ####Crew Supervisor: VLADIMIR GALLARDO ([phone])[facility]USBill [facility] [place] ([facility])[address] Glucose [Mass/Vol] 105 mg/dL High 70-100 [facility] Comment on above: Performed By: #### L AB15 ####Crew Supervisor: VLADIMIR GALLARDO ([phone])[facility]USBill [facility] [place] ([facility])[address] Potassium [Moles/Vol] 4.2 mmol/L Normal 3.5-5.1 [facility] Comment on above: Performed By: #### L AB15 ####Crew Supervisor: VLADIMIR GALLARDO ([phone])[facility] ([facility])[address] [place] [address] [place] Sodium [Moles/Vol] 136 mmol/L Normal 135-145 [facility] Comment on above: Performed By: #### L AB15 ####Crew Supervisor: VLADIMIR GALLARDO ([phone])[facility] ([facility])[address] [place] [address] [place] Urea nitrogen [Mass/Vol] 20 mg/dL High 7-17 [facility] Comment on above: Performed By: #### L AB15 ####Crew Supervisor: VLADIMIR GALLARDO ([phone])[facility] ([facility])[address] [place] [phone] [facility] Basic metabolic 1998 panelon 03-04-2023 Anion gap [Moles/Vol] 6 mmol/L 3 - 13 mmol/L [facility] Calcium [Mass/Vol] 8.2 mg/dL Low 8.4 - 10. 4 mg/dL [facility] Chloride [Moles/Vol] 108 mmol/L High 98 - 10 7 mmol/L [facility] CO2 [Moles/Vol] 22 mmol/L 22 - 30 mmol/L [facility] Creatinine [Mass/Vol] 0.62 mg/dL 0.52 - 1.04 mg/dL [facility] GFR/1.73 sq M.predicted MDRD (S/P/Bld) [Vol rate/Area] 89.6 mL/min/{1.73_m2} - PINF [facility] Comment on above: Calculation based on the Chronic Kidney Disease Epidemiology Collaboration (CKD-EPI) equation refit without adjustment for race Glucose [Mass/Vol] 105 mg/dL High 70 - 100 mg/dL [facility] Interpretation and review of laboratory results Abnormal [facility] Potassium [Moles/Vol] 4.2 mmol/L 3.5 - 5.1 mmol/L [facility] Sodium [Moles/Vol] 136 mmol/L 135 - 145 mmol/L [facility] Urea nitrogen [Mass/Vol] 20 mg/dL High 7 - 17 mg/d L [facility] CARECOORDon 03-04-2023 CARECOJAMES Spoke with APS workerKraig. States that she was recently called from [facility] for concerns for patient at home alone and not having 24/7 care at home. APS worker asking for update on patient's discharge plan. Explained that PT/OT recommend home with home health PT/OT, however, with concerns for safety, recommendations for SNF were made. Explained that patient walked 60ft independently and 100ft with a FWW. APS worker states that she made a visit [facility] home today and spoke with daughter in law. States that there was no mention to daughter in law that she would like patient placed in an ECF. Explained that SW can assist with this if the daughter in law is wanting production metal sprayer care placement. Patient is not eligible for SNF at this time. Explained to APS worker that [facility] services will be restarted and there will be a older adult social work specialist added to patient's case. Also asked for APS worker to follow up with [facility] and this SW will as well. APS worker wanting for SW to contact her when patient has been discharged. Will follow. [facility] CARECOORD S/W, call S/W received a call from [facility] APS worker expressing concern over patient at home. Kraig noted the patient has a diagnosis of Dementia and does not have 24/7 care at home. There is also an indication of wandering at home. I did pass this along to covering Unit S/W. [facility] at [facility] APS: [phone]. [facility] CBC W Auto Differential pane l (Bld)on 03-04-2023 Basophils (Bld) [#/Vol] 0.1 10*3/uL 0.0 - 0.2 10*3/uL [facility] Basophils/100 WBC (Bld) 0.7 % 0.0 - 2.0 % [facility] Eosinophils (Bld) [#/Vol] 0.1 10*3/uL 0. 0 - 0.5 10*3/uL [facility] Eosinophils/100 WBC (Bld) 1.3 % 1.0 - 6.0 % [facility] Erythrocyte distribution width (RBC) [Ratio] 12.9 % 11.5 - 14.5 % [facility] Hematocrit (Bld) [Volume fraction] 36.6 % 35.0 - 47.0 % [facility] Hemoglobin (Bld) [Mass/Vol] 12.1 g/dL 11.7 - 16.0 g/dL [facility] Interpretation and review of laboratory results Normal [facility] th Lymphocytes (Bld) [#/Vol] 2.0 10*3/uL 1. 0 - 4.3 10*3/uL [facility] Lymphocytes/100 WBC (Bld) 23.5 % 20 .0 - 40.0 % [facility] MCH (RBC) [Entitic mass] 30.3 pg 26. 0 - 34.0 pg [facility] MCHC (RBC) [Mass/Vol] 33.1 % 32.0 - 36.0 % [facility] MCV (RBC) [Entitic vol] 91.3 fL 80.0 - 98.0 fL [facility] Monocytes (Bld) [#/Vol] 0.7 10*3/uL 0.0 - 0.8 10*3/uL [facility] Monocytes/100 WBC (Bld) 8.9 % 2.0 - 10.0 % [facility] Neutrophils (Bld) [#/Vol] 5.5 10*3/uL 1. 8 - 7.0 10*3/uL [facility] Neutrophils/100 WBC (Bld) 65.6 % 40 .0 - 80.0 % [facility] Nucleated RBC/100 WBC (Bld) [Ratio] 0.0 % [facility] Platelet mean volume (Bld) [Entitic vol] 8.0 fL 7.4 - 12.4 fL [facility] Platelets (Bld) [#/Vol] 174 10*3/uL 140 - 440 10*3/uL [facility] RBC (Bld) [#/Vol] 4.01 10*6/uL 3.8 - 5.20 10*6/uL [facility] WBC (Bld) [#/Vol] 8.4 10*3/uL 3.6 - 10.7 10*3/uL [facility] CBC WITH AUTO DIFFERENTIALon 03-04-2023 Basophils (Bld) [#/Vol] 0.1 10*3/uL Normal 0.0-0.2 [facility] Comment on above: Performed By: #### L [id number] ####Crew Supervisor: VLADIMIR GALLARDO ([phone])[facility] CAMPUSCarlitos ([facility])[address] [place] [address] Basophils/100 WBC (Bld) 0.7 % Normal 0.0-2.0 [facility] Comment on above: Performed By: #### L [id number] ####Crew Supervisor: VLADIMIRKRISTIN GALLARDO ([phone])[facility] ([facility])[address] Eosinophils (Bld) [#/Vol] 0.1 10*3/uL Normal 0.0-0.5 [facility] Comment on above: Performed By: #### L [id number] ####Crew Supervisor: VLADIMIRKRISTIN GALLARDO ([phone])[facility]AMP[facility] [place] ([facility])[address] Eosinophils/100 WBC (Bld) 1.3 % Normal 1.0-6.0 [facility] Comment on above: Performed By: #### L [id number] ####Crew Supervisor: VLADIMIR GALLARDO ([phone])[facility]AMP[facility] [place] ([facility])[address] [place] [address] Erythrocyte distribution width (RBC) [Ratio] 12.9 % Normal 11.5-14.5 [facility] Comment on above: Performed By: #### L [id number] ####Crew Supervisor: VLADIMIRKRISTIN GALLARDO ([phone])[facility] CAMPUSA [facility] [place] ([facility])[address] ERYTHROCYTE MEAN CORPUSCULAR HEMOGLOBIN CONCENTRATION (G/DL) BY AUTOMATED 33.1 % Normal 32.0-36.0 [facility] Comment on above: Performed By: #### L [id number] ####Crew Supervisor: VLADIMIR SAMI ([phone])[facility]AMPUSA [facility] [place] ([facility])[address] Hematocrit (Bld) [Volume fraction] 36.6 % Normal 35.0-47.0 [facility] Comment on above: Performed By: #### L [id number] ####Crew Supervisor: VLADIMIR SAMI ([phone])[facility]AMP[facility] [place] ([facility])[address] Hemoglobin (Bld) [Mass/Vol] 12.1 g/dL Normal 11.7-16.0 [facility] Comment on above: Performed By: #### L [id number] ####Crew Supervisor: VLADIMIRKRISTIN GALLARDO ([phone])[facility]AMP[facility] [place] ([facility])[address] Lymphocytes (Bld) [#/Vol] 2.0 10*3/uL Normal 1.0-4.3 [facility] Comment on above: Performed By: #### L [id number] ####Crew Supervisor: VLADIMIR SAMI ([phone])[facility]AMPUSA [facility] [place] ([facility])[address] Lymphocytes/100 WBC (Bld) 23.5 % Normal 20.0-40.0 [facility] Comment on above: Performed By: #### L [id number] ####Crew Supervisor: VLADIMIR GALLARDO ([phone])[facility]AMPUSBill [facility] [place] ([facility])[address] [place] [address] MCH (RBC) [Entitic mass] 30.3 pg Normal 26.0-34.0 [facility] Comment on above: Performed By: #### L [id number] ####Crew Supervisor: VLADIMIR SAMI ([phone])[facility]AMPUSBill [facility] [place] ([facility])[address] [place] [address] MCV (RBC) [Entitic vol] 91.3 fL Normal 80.0-98.0 [facility] Comment on above: Performed By: #### L [id number] ####Crew Supervisor: VLADIMIR RALPHVAISHNAVI ([phone])[facility]AMPUSBill [facility] [place] ([facility])[address] [place] [address] Monocytes (Bld) [#/Vol] 0.7 10*3/uL Normal 0.0-0.8 [facility] Comment on above: Performed By: #### L [id number] ####Crew Supervisor: VLADIMIR RALPHVAISHNAVI ([phone])[facility]AMPUSBill [facility] [place] ([facility])[address] Monocytes/100 WBC (Bld) 8.9 % Normal 2.0-10.0 [facility] Comment on above: Performed By: #### L [id number] ####Crew Supervisor: VLADIMIR GALLARDO ([phone])[facility]AMP[facility] [place] ([facility])[address] Neutrophils (Bld) [#/Vol] 5.5 10*3/uL Normal 1.8-7.0 [facility] Comment on above: Performed By: #### L [id number] ####Crew Supervisor: VLADIMIR GALLARDO ([phone])[facility]AMP[facility] [place] ([facility])[address] Neutrophils/100 WBC (Bld) 65.6 % Normal 40.0-80.0 [facility] Comment on above: Performed By: #### L [id number] ####Crew Supervisor: VLADIMIR GALLARDO ([phone])[facility] CAMPUSA [facility] [place] ([facility])[address] NRBC (PER 100 WBCS) BY AUTOMATED COUNT 0.0 /100 WBCs Normal 0.0-2.0 [facility] Comment on above: Performed By: #### L [id number] ####Crew Supervisor: VLADIMIR GALLARDO ([phone])[facility] CAMPUSA [facility] [place] ([facility])[address] Platelet mean volume (Bld) [Entitic vol] 8.0 fL Normal 7.4-12.4 [facility] Comment on above: Performed By: #### L [id number] ####Crew Supervisor: VLADIMIR GALLARDO ([phone])[facility] CAMPUSA [place] ([facility])[address] [place] [address] [place] Platelets (Bld) [#/Vol] 174 10*3/uL Normal 140-440 [facility] [facility] Comment on above: Performed By: #### L [id number] ####Crew Supervisor: VLADIMIR GALLARDO ([phone])[facility] [place] (SBHLAB)[address] RBC (Bld) [#/Vol] 4.01 10*6/uL Normal 3.8-5.20 [facility] Comment on above: Performed By: #### L [id number] ####Crew Supervisor: VLADIMIRKRISTIN CORDOVATerriVAISHNAVI ([phone])[facility]AMPUSBill GUTIERREZ (SBHLAB)[address] WBC (Bld) [#/Vol] 8.4 10*3/uL Normal 3.6-10.7 [facility] Comment on above: Performed By: #### L [id number] ####Crew Supervisor: VLADIMIRKRISTIN GALLARDO ([phone])[facility]AMPUSBill GUTIERRE[facility] (SBHLAB)[address] IDNon 03-04-2023 IDN Problem: Knowledge Deficit Goal: Patient/family/careg iver demonstrates understanding of disease process, treatment plan, medications, and discharge instructions Outcome: Progressing Problem: Potential for Compromised Skin Integrity Goal: Skin Integrity is Maintained or Improved Outcome: Progressing Goal: Nutritional status is improving Outcome: Progressing Problem: Urinary Incontinence Goal: Perineal skin integrity is maintained or improved Outcome: Progressing The patient is Moderately Stable - Low risk of patient condition declining or worsening The patient's goals for the shift include to go home The clinical goals for the shift include to go home Over the shift, the patient did not make progress toward the following goals. Barriers to progression include . Recommendations to address these barriers include . Normal [facility] Progress Noteon 03-04-2023 Progress Note Nutrition Assessment Type and Reason for Visit: Reassess Nutrition Recommendations/Plan : Continue regular diet. Intakes seemingly improved. Continue Ensure Plus BID. Changed flavor today per pt request. Ensure Plus High Protein provides 350 kcals, 13g protein per serving. Receiving assistance with meal tray orders. Please continue to document %PO intakes. RD will continue to follow and monitor overall nutritional status. Malnutrition Assessment: Malnutrition Status: At risk for malnutrition (Comment) (decreased PO) Context: Social/Environmental Circumstances Findings of the 6 clinical characteristics of malnutrition: Energy Intake: 50% or less estimated energy requirements for 1 month or longer (Pt's a month ago.) Weight Loss: (3% wt loss in 6 mo) Body Fat Loss: Unable to assess Muscle Mass Loss: Unable to assess Fluid Accumulation: No significant fluid accumulation Drug Safety Scientist Strength: Not Performed Nutrition Assessment: Pt remains admitted with acute encephalopathy, progressive dementia, FTT, dehydration, UTI, HTN, and HLD. Confusion is significantly better and mentation close to baseline. cardiac cath lab technologist reached out to RD earlier today asking to change the ONS flavor to chocolate per pt preference. She is receiving assistance with meal tray ordering. Planning to d/c home with [facility]. Pt reports good appetite at time of RD visit today- forgetful that she had ordered her meals already. MIss Estimated Daily Nutrient Needs: Energy Requirements Based On: Kcal/kg Weight Used for Energy Requirements: Point Weight for Energy Calculation (kg): 55 kg Total Energy Requirements (kcals/day): 1697-9755 kcals (25-30 kcals/kg) Weight Used for Protein Requirements: Point Weight in Kg Used for Protein Requirements: 55 kg Estimated Total Protein (g/day): 55-66 (1-1.2g/kg) Estimated Daily Total Fluid (ml/day): 2317-8504 ml/day or per MD Nutrition Related Findings: Missing teeth; Humberto 18; BLE weakness; +BS; last BM 02/28 Wound Type: None Current Nutrition Therapies: Adult diet Regular Current Oral Intake Average Meal Intake: Unable to assess (Limited data- pt reports good intakes currently) Average Supplements Intake: Unable to assess Anthropometric Measures: Height: 162.6 cm (5' 4") Current Body Weight: 73 kg (161 lb) Weight Source: Bed Scale Admission Body Weight: 73 kg (161 lb) Usual Body Weight: 75.3 kg (166 lb) (08/28/22) % Weight Change (Calculated): -3 Point Body Weight (lbs) (Calculated): 120 lbs Point Body Weight (Kg) (Calculated): 55 kg % Point Body Weight (Calculated): 134.2 % BMI (kg/m2) (Calculated): 27.6 Weight Adjustment For: No Adjustment BMI Categories: Overweight (BMI 25.0-29.9) Nutrition Diagnosis: Inadequate oral intake, Inadequate protein intake related to psychological cause or life stress as evidenced by poor intake prior to admission Nutrition Interventions: Nutrition Education/Counseling : No recommendation at this time Coordination of Nutrition Care: Continue to monitor while inpatient Plan of Care discussed with: pt Goals: Previous Goal Met: Progressing toward Goal(s) Goals: PO intake 75% or greater, prior to discharge Nutrition Monitoring and Evaluation: Behavioral-Environme ntal Outcomes: None Identified Food/Nutrient Intake Outcomes: Diet Advancement/Toleranc e, Food and Nutrient Intake, Supplement Intake Physical Signs/Symptoms Outcomes: Biochemical Data, Chewing or Swallowing, Constipation, GI Status, Nutrition Focused Physical Findings, Skin, Weight Discharge Planning: Continue Oral Nutrition Supplement Jill Whitley RD Contact: [phone] [facility] Progress Note [facility] Geriatric Medicine Inpatient Consult Service Admission Date: 02/27/2023 Assessment Principal Problem: Failure to thrive in adult Active Problems: Dementia (HCC) At risk for delirium Depression At risk for malnutrition Debility Plan Dementia -likely Alzheimer's Disease -needs 24/ care at this time due to poor IADL/ADL care in setting of dementia and depression -Namenda currently being weaned due to concern it wasn't helping and could have been impacting her mood -Namenda to 5 mg BID x7 days (equivalent to the XR 14 mg dose), then 5 mg daily x 7 days. Then stop. Monitor for cognitive changes -Recommend follow up at [facility]) for geriatric cognitive evaluation when in usual state of health. Depression -Mood doing better today. May be improving with 10/11 supervision in hospital -continue celexa 40 mg daily (the dose was increased again to 40 mg on 02/18, so may take a few weeks to get the full effect of the medication) -psychiatry suggested remeron if desired. -I did let daughter in law Renetta know psychiatry's recommendation and gave them the name "remeron". Since mood is improving, will not start it now, but they can consider talking with her PCP about it in the future if mood declines again At Risk for Malnutrition -Dietitian following. -Started on Ensure. Debility -Contributing factors include: physical deconditioning, dementia, recent hospitalization -Physical Therapy and Occupational Therapy evaluations Follow-up: will follow with you Subjective Chief Complaint: altered mental status, poor PO intake Geriatrics consulted for altered mental status HPI- The patient is known to me. 82 y.o. year-old female with past medical history of dementia, acid reflux, anxiety, hyperlipidemia, breast cancer (on Tamoxifen, follows with Dr Carlson) who presented to hospital with altered mental status. Concern for dementia +/- depression. Reviewed older adult social work specialist note - APS called expressing concerning about the patient at home because she was wandering and didn't have 10/11 care. Reviewed today's primary team progress note - more alert and interactive today. Finishing antibiotic course for UTI She has not been agitated and has not used the prn seroquel or zyprexa that psychiatry ordered Interval History: Patient reports she is feeling well today. She is in good spirits. Reports her appetite is good and she has been sleeping OK. She does admit to feeling "down in the dumps" earlier but not this week. She does off-handedly mention her in the present (he over a month ago) Review of Systems Respiratory: Negative for shortness of breath. Cardiovascular: Negative for leg swelling. Gastrointestinal: Negative for abdominal pain, constipation, diarrhea and nausea. Musculoskeletal: Negative for arthralgias and myalgias. Objective BP (!) 107/43 (BP Location: Right arm, Patient Position: Lying) Pulse 58 Temp 36.9 ?C (98.5 ?F) (Temporal) Resp 12 Ht 5' 4" (1.626 m) Wt 161 lb 13.1 oz (73.4 kg) SpO2 95% BMI 27.78 kg/m? No intake or output data in the 24 hours ending 03/04/23 1651 Wt Readings from Last 3 Encounters: 02/27/23 161 lb 13.1 oz (73.4 kg) 08/28/22 166 lb 12.8 oz (75.7 kg) 02/24/22 165 lb 14.4 oz (75.3 kg) Current Facility-Administere d Medications: acetaminophen (Tylenol) tablet 650 mg, 650 mg, Oral, q6h PRN OR acetaminophen (Tylenol) suppository 650 mg, 650 mg, Rectal, q6h PRN, Angelito Matson MD aspirin chewable tablet 81 mg, 81 mg, Oral, Daily, Angelito Matson MD, 81 mg at 03/04/23 0818 citalopram (CeleXA) tablet 40 mg, 40 mg, Oral, Daily, Regina Yu MD, 40 mg at 03/04/23 0818 enoxaparin (Lovenox) syringe 40 mg, 40 mg, SubCUTAneous, Daily, Angelito Matson MD, 40 mg at 03/04/23 0818 Influenza Vac A&B SA Adj quadrivalent (Fluad) vaccine 0.5 mL, 0.5 mL, IntraMUSCular, Prior to discharge, Angelito Matson MD melatonin tablet 3 mg, 3 mg, Oral, Nightly, Mine Guillaume, OIL PIPE INSPECTOR - DROSSER, 3 mg at 03/03/232112 memantine (Namenda) tablet 5 mg, 5 mg, Oral, BID, Regina Yu MD, 5 mg at 03/04/23 0818 [START ON 03/10/2023] memantine (Namenda) tablet 5 mg, 5 mg, Oral, Daily, Regina Yu MD QUEtiapine (SEROquel) tablet 12.5 mg, 12.5 mg, Oral, TID PRN OR OLANZapine (ZyPREXA) 2.5 mg in sterile water 0.5 mL injection, 2.5 mg, IntraMUSCular, TID PRN, Mary Major DO ondansetron ODT (Zofran-ODT) disintegrating tablet 4 mg, 4 mg, Oral, q8h PRN, 4 mg at 02/28/23 1257 OR ondansetron (Zofran) injection 4 mg, 4 mg, IntraVENous, q6h PRN, Angelito Matson MD polyethylene glycol (PEG) 3350 (Miralax) packet 17 g, 17 g, Oral, Daily PRN, Angelito Matson MD senna-docusate sodium (Senokot-S) 8.6-50 MG tablet 2 tablet, 2 tablet, Oral, BID, Mayank Lynn DO, 2 tablet at 03/04/23 (more content not included)... Normal [facility] Progress Note OCCUPATIONAL THERAPY [facility] Treatment Note Name/MRN: Albina Brown ([id number]) Date of : 1940 Age: 82 y.o. Room/Bed: B1-153/B1-153 B Visit #: 1 out of 7 visits Discharge Recommendation: Home with Home OT, Home with / Assist, and if pt does not have 24 hr SUP available, may benefit from SNF for safety Equipment Needed: none Prior Level of Function ADL Assistance: Independent Ambulation Assistance: Independent Transfer Assistance: Independent Assessment Pt tolerated session fairly well. Pt completed bed mobility and LB dressing with SBA. Pt required CGA for long household distance functional mobility without assistive device. Pt is still below baseline and is a fall risk. Pt would benefit from continued OT to improve activity tolerance, balance, and strength needed for improved occupational performance. Pt is recommended for [facility] OT and 24 hr assist, if not available may benefit from SNF for safety Subjective Pt supine in bed, agreeable with encouragement. Per RN, pt okay to see Pain: Pt denies any current pain. Medical Precautions: No active isolations Proper PPE donned/doffed in accordance with facility standards. Fall Risk: Jim Fall Risk Score: 85 (High Risk) Precautions/Restrict ions: N/A Family/Caregiver Present: none Objective ADLs LE Dressing: SBA Pt able to thread briefs and pants while seated EOB with SBA. Pt able to manage over hips in standing with SBA. Bed Mobility Supine to sit: SBA Sit to supine: SBA Scooting: SBA Pt completed all aspects of bed mobility with HOB elevated, use of bed rails, and SBA. Pt required increased time to complete. Transfers/Mobility Sit to stand: Contact Guard Stand to sit: Contact Guard, Pt completed x2 STS from EOB without device and CGA. Pt with no overt LoB but with some unsteadiness, able to self correct Sitting balance: Modified Independent Standing balance: SBA, Contact Guard, SBA for static stand, CGA for dynamic Functional mobility: Contact Guard Pt completed long household distance functional mobility without device with CGA. Pt required increased time to complete but with no LoB or SOB Device(s) used: hospital bed Cognition - WFL Some impaired safety awareness and insight to deficits Plan Continue acute OT per plan of care. Safety/Education Safety Safety Devices in place: All fall risk precautions in place, call light within reach, left in bed, bed alarm in place, gait belt, patient at risk for falls, and nurse notified Restraints: No Education Education Given To: patient Education Provided: OT Role, Plan of Care, Precautions, ADL Adaptive Strategies, Transfer Training, Equipment, Fall Prevention Education, and Discharge Recommendations Education Method: Verbal, Demonstration, and Teach Back Barriers to Learning: None Education Outcome: Verbalized Understanding, Demonstrated Understanding, and Continued Education Needed AM-PAC AM-PAC Inpatient Daily Activity Raw Score: 19 ADL Inpatient CMS G-Code Modifier: CK Goals Patient Stated Goal: to go home Encounter Problems Encounter Problems (Active) Balance Patient will tolerate standing with SUP for 3 minutes to allow for increased participation in functional activities (Progressing) Start: 03/01/23 Expected End: 03/08/23 Dressings Lower Extremities Patient will dress lower body with SUP (Progressing) Start: 03/01/23 Expected End: 03/08/23 Mobility Patient will demonstrate functional ambulation with SUP (Progressing) Start: 03/01/23 Expected End: 03/08/23 Toileting Patient will complete toileting tasks at standard toilet with supervision. (Not Addressed) Start: 03/01/23 Expected End: 03/08/23 Transfers Patient will complete functional transfer with no assistive device with supervision in order to prepare for ambulation. (Progressing) Start: 03/01/23 Expected End: 03/08/23 Therapy Time Individual Co-treatment Time In 1406 Time Out 1424 Minutes 18 Timed Code Treatment Minutes: 18 Minutes (1 Ther ACt) CADE Mccrary Normal [facility] BASIC METABOLIC PANELon 11- Anion gap [Moles/Vol] 2 mmol/L Low 3-13 [facility] Comment on above: Performed By: #### L [id number] ####Crew Supervisor: VLADIMIR GALLARDO ([phone])[facility] ([facility])[address] [place] [address] Calcium [Mass/Vol] 8.3 mg/dL Low 8.4-10.4 [facility] Comment on above: Performed By: #### L [id number] ####Crew Supervisor: VLADIMIR GALLARDO ([phone])[facility] (SBHLAB)[address] Chloride [Moles/Vol] 108 mmol/L High 98-107 [facility] Comment on above: Performed By: #### L [id number] ####Crew Supervisor: VLADIMIR GALLARDO ([phone])[facility] (SBHLAB)[address] [place] [address] [place] CO2 [Moles/Vol] 26 mmol/L Normal 22-30 [facility] Comment on above: Performed By: #### L [id number] ####Crew Supervisor: VLADIMIR GALLARDO ([phone])[facility] [place] (SBHLAB)[address] Creatinine [Mass/Vol] 0.61 mg/dL Normal 0.52-1.04 [facility] Comment on above: Performed By: #### L [id number] ####Crew Supervisor: VLADIMIR GALLARDO ([phone])[facility] [place] (SBHLAB)[address] GLOMERULAR FILTRATION RATE ML/MIN/1.73 SQ M.PREDICTED 89.9 mL/min/1.73m*2 Normal >60.0 [facility] Comment on above: Result Comment: Calc ulation based on the Chronic Kidney Disease Epidemiology Collaboration (CKD-EPI) equation refit without adjustment for race Performed By: #### L [id number] ####Crew Supervisor: VLADIMIR GALLARDO ([phone])[facility] [place] (SBHLAB)[address] Glucose [Mass/Vol] 92 mg/dL Normal 70-100 [facility] Comment on above: Performed By: #### L [id number] ####Crew Supervisor: VLADIMIR GALLARDO ([phone])[facility] [place] (SBHLAB)[address] [place] [address] [place] Potassium [Moles/Vol] 3.9 mmol/L Normal 3.5-5.1 [facility] Comment on above: Performed By: #### L [id number] ####Crew Supervisor: VLADIMIR GALLARDO ([phone])[facility] [place] (SBHLAB)[address] [place] [address] [place] Sodium [Moles/Vol] 136 mmol/L Normal 135-145 [facility] Comment on above: Performed By: #### L [id number] ####Crew Supervisor: VLADIMIR GALLARDO ([phone])[facility] [place] (SBHLAB)[address] Urea nitrogen [Mass/Vol] 16 mg/dL Normal 7-17 [facility] Comment on above: Performed By: #### L [id number] ####Crew Supervisor: VLADIMIR GALLARDO ([phone])[facility] ([facility])[address] Basic metabolic 1998 panelon 03-03-2023 Anion gap [Moles/Vol] 2 mmol/L Low 3 - 13 mmol/L [facility] Calcium [Mass/Vol] 8.3 mg/dL Low 8.4 - 10. 4 mg/dL [facility] Chloride [Moles/Vol] 108 mmol/L High 98 - 10 7 mmol/L [facility] CO2 [Moles/Vol] 26 mmol/L 22 - 30 mmol/L [facility] Creatinine [Mass/Vol] 0.61 mg/dL 0.52 - 1.04 mg/dL [facility] GFR/1.73 sq M.predicted MDRD (S/P/Bld) [Vol rate/Area] 89.9 mL/min/{1.73_m2} - PINF [facility] Comment on above: Calculation based on the Chronic Kidney Disease Epidemiology Collaboration (CKD-EPI) equation refit without adjustment for race Glucose [Mass/Vol] 92 mg/dL 70 - 100 mg/dL [facility] Interpretation and review of laboratory results Abnormal [facility] Potassium [Moles/Vol] 3.9 mmol/L 3.5 - 5.1 mmol/L [facility] Sodium [Moles/Vol] 136 mmol/L 135 - 145 mmol/L [facility] Urea nitrogen [Mass/Vol] 16 mg/dL 7 - 17 mg/d L [facility] CARECOORDon 03-03-2023 [facility] Sw consult for discharge planning. PT seen and assessed patient. Plan for patient to return home. Patient being seen and assessed by geriatrics and psychiatry as well. Patient's daughter in law, Renetta involved. Patient connected with [facility] and was approved 20 hours of [facility] services, however, the services has not started. If family wants to pursue assisted care placement, it can be arranged through [facility] or if they have a facility in mind and have the income to place from hospital, SW can assist. However, patient does not have skilled requirements to go to SNF at this time. Insurance would not approve for patient to admit to SNF as she is walking independently and with FWW. Will discuss discharge planning with covering PATRICK Kong. SW to follow. Normal [facility] CBC W Auto Differential pane l (Bld)Ordered By: Fawad Zelaya on 03-03-2023 Basophils (Bld) [#/Vol] 0.0 10*3/uL 0.0 - 0.2 10*3/uL [facility] Basophils/100 WBC (Bld) 0.6 % 0.0 - 2.0 % [facility] Eosinophils (Bld) [#/Vol] 0.1 10*3/uL 0. 0 - 0.5 10*3/uL [facility] Eosinophils/100 WBC (Bld) 1.7 % 1.0 - 6.0 % [facility] Erythrocyte distribution width (RBC) [Ratio] 13.0 % 11.5 - 14.5 % [facility] Hematocrit (Bld) [Volume fraction] 34.2 % Low 35.0 - 47.0 % [facility] Hemoglobin (Bld) [Mass/Vol] 11.5 g/dL Low 11.7 - 16.0 g/dL [facility] Interpretation and review of laboratory results Abnormal [facility] th Lymphocytes (Bld) [#/Vol] 2.5 10*3/uL 1. 0 - 4.3 10*3/uL [facility] Lymphocytes/100 WBC (Bld) 34.7 % 20 .0 - 40.0 % [facility] MCH (RBC) [Entitic mass] 30.5 pg 26. 0 - 34.0 pg [facility] MCHC (RBC) [Mass/Vol] 33.7 % 32.0 - 36.0 % [facility] MCV (RBC) [Entitic vol] 90.6 fL 80.0 - 98.0 fL [facility] Monocytes (Bld) [#/Vol] 0.6 10*3/uL 0.0 - 0.8 10*3/uL [facility] Monocytes/100 WBC (Bld) 8.5 % 2.0 - 10.0 % [facility] Neutrophils (Bld) [#/Vol] 4.0 10*3/uL 1. 8 - 7.0 10*3/uL [facility] Neutrophils/100 WBC (Bld) 54.5 % 40 .0 - 80.0 % [facility] Nucleated RBC/100 WBC (Bld) [Ratio] 0.1 % [facility] Platelet mean volume (Bld) [Entitic vol] 7.7 fL 7.4 - 12.4 fL [facility] Platelets (Bld) [#/Vol] 165 10*3/uL 140 - 440 10*3/uL [facility] RBC (Bld) [#/Vol] 3.78 10*6/uL Low 3.8 - 5.20 10*6/uL [facility] WBC (Bld) [#/Vol] 7.3 10*3/uL 3.6 - 10.7 10*3/uL [facility] CBC WITH AUTO DIFFERENTIALon 03-03-2023 Basophils (Bld) [#/Vol] 0.0 10*3/uL Normal 0.0-0.2 [facility] Comment on above: Performed By: #### L [id number] ####Crew Supervisor: VLADIMIR GALLARDO ([phone])[facility] ([facility])[address] [place] [address] Basophils/100 WBC (Bld) 0.6 % Normal 0.0-2.0 [facility] Comment on above: Performed By: #### L [id number] ####Crew Supervisor: VLADIMIR GALLARDO ([phone])[facility] Eosinophils (Bld) [#/Vol] 0.1 10*3/uL Normal 0.0-0.5 [facility] Comment on above: Performed By: #### L [id number] ####Crew Supervisor: VLADIMIR GALLARDO ([phone])[facility])[address] Eosinophils/100 WBC (Bld) 1.7 % Normal 1.0-6.0 [facility] Comment on above: Performed By: #### L [id number] ####Crew Supervisor: VLADIMIR SAMI ([phone])[facility] [place] (SBHLAB)[address] Erythrocyte distribution width (RBC) [Ratio] 13.0 % Normal 11.5-14.5 [facility] Comment on above: Performed By: #### L [id number] ####Crew Supervisor: VLADIMIR SAMI ([phone])[facility] ([facility])[address] ERYTHROCYTE MEAN CORPUSCULAR HEMOGLOBIN CONCENTRATION (G/DL) BY AUTOMATED 33.7 % Normal 32.0-36.0 [facility] Comment on above: Performed By: #### L [id number] ####Crew Supervisor: VLADIMIR SAMI ([phone])[facility] [place] ([facility])[address] [place] [address] Hematocrit (Bld) [Volume fraction] 34.2 % Low 35.0-47.0 [facility] Comment on above: Performed By: #### L [id number] ####Crew Supervisor: VLADIMIR CORDOVAVARUN ([phone])[facility] [place])[address] [place] [address] Hemoglobin (Bld) [Mass/Vol] 11.5 g/dL Low 11.7-16.0 [facility] Comment on above: Performed By: #### L [id number] ####Crew Supervisor: VLADIMIR RALPHVAISHNAVI ([phone])[facility] [place] ([facility])[address] [place] [address] Lymphocytes (Bld) [#/Vol] 2.5 10*3/uL Normal 1.0-4.3 [facility] Comment on above: Performed By: #### L [id number] ####Crew Supervisor: VLADIMIR RALPHVAISHNAVI ([phone])[facility] [place] ([facility])[address] [place] [address] Lymphocytes/100 WBC (Bld) 34.7 % Normal 20.0-40.0 [facility] Comment on above: Performed By: #### L [id number] ####Crew Supervisor: VLADIMIR GALLARDO ([phone])[facility] [place] (SBHLAB)[address] MCH (RBC) [Entitic mass] 30.5 pg Normal 26.0-34.0 [facility] Comment on above: Performed By: #### L [id number] ####Crew Supervisor: VLADIMIR GALLARDO ([phone])[facility] [place] (SBHLAB)[address] MCV (RBC) [Entitic vol] 90.6 fL Normal 80.0-98.0 [facility] Comment on above: Performed By: #### L [id number] ####Crew Supervisor: VLADIMIR GALLARDO ([phone])[facility] [place] ([facility])[address] [address] Monocytes (Bld) [#/Vol] 0.6 10*3/uL Normal 0.0-0.8 [facility] Comment on above: Performed By: #### L [id number] ####Crew Supervisor: VLADIMIR GALLARDO ([phone])[facility] [place] (SB[place])[address] Monocytes/100 WBC (Bld) 8.5 % Normal 2.0-10.0 [facility] Comment on above: Performed By: #### L [id number] ####Crew Supervisor: VLADIMIR GALLARDO ([phone])[facility] [place] (SB[facility])[address] [place] [address] [place] Neutrophils (Bld) [#/Vol] 4.0 10*3/uL Normal 1.8-7.0 [facility] Comment on above: Performed By: #### L [id number] ####Crew Supervisor: VLADIMIR GALLARDO ([phone])[facility] [place] (SB[facility])[address] [place] [address] [place] Neutrophils/100 WBC (Bld) 54.5 % Normal 40.0-80.0 [facility] Comment on above: Performed By: #### L [id number] ####Crew Supervisor: VLADIMIR GALLARDO ([phone])[facility] [place] (SBHLAB)[address] NRBC (PER 100 WBCS) BY AUTOMATED COUNT 0.1 /100 WBCs Normal 0.0-2.0 [facility] Comment on above: Performed By: #### L [id number] ####Crew Supervisor: VLADIMIR GALLARDO ([phone])[facility] [place] ([facility])[address] Platelet mean volume (Bld) [Entitic vol] 7.7 fL Normal 7.4-12.4 [facility] Comment on above: Performed By: #### L [id number] ####Crew Supervisor: VLADIMIR GALLARDO ([phone])[facility] [place] ([facility])[address] Platelets (Bld) [#/Vol] 165 10*3/uL Normal 140-440 [facility] Comment on above: Performed By: #### L [id number] ####Crew Supervisor: VLADIMIR GALLARDO ([phone])[facility] [place] ([facility])[address] RBC (Bld) [#/Vol] 3.78 10*6/uL Low 3.8-5.20 [facility] Comment on above: Performed By: #### L [id number] ####Crew Supervisor: VLADIMIR GALLARDO ([phone])[facility] [place] ([facility])[address] WBC (Bld) [#/Vol] 7.3 10*3/uL Normal 3.6-10.7 [facility] Comment on above: Performed By: #### L [id number] ####Crew Supervisor: VLADIMIR GALLARDO ([phone])[facility] [place] ([facility])[address] Progress Noteon 03-03-2023 Progress Note OCCUPATIONAL THERAPY [facility]'s Name/MRN: Albina Bronw ([id number]) Date: 03/03/2023 Chart reviewed for OT tx. Attempted pt at 9:22 and pt reporting she was too tired and asked OT to return in a few hours. Attempted a second time at 11:08 and pt continuing to decline despite encouragement. Will continue to follow and re attempt as able. Shyla Snow, OT Normal [facility] Progress Note [facility] Geriatric Medicine Inpatient Consult Service Admission Date: 02/27/2023 Assessment Principal Problem: Failure to thrive in adult Active Problems: Dementia (HCC) At risk for delirium Depression At risk for malnutrition Debility Plan Dementia -likely Alzheimer's Disease -needs 24/ care at this time due to poor IADL/ADL care in setting of dementia and depression -She takes namenda XR 21 mg daily at home. It was started in December. Family reported no benefit. -Due to concern that Namenda may be impacting mood, currently weaning off of this medication- Will decrease namenda to 5 mg BID x7 days (equivalent to the XR 14 mg dose), then 5 mg daily x 7 days. Then stop. Monitor for cognitive changes. -Recommend follow up at [facility] for geriatric cognitive evaluation when in usual state of health. Depression -Suspect depression is contributing to apathy, poor PO intake, and decline in ADLs at home. -Patient recently had a major life change (spouse in early January) -Family had increased the celexa back to previous home dose of 40 mg daily on 02/18. -qtc is within normal limits. Ok to continue the celexa 40 mg daily -Psychiatry consulted- appreciate recommendations- per note, consider addition of Remeron 15mg at bedtime At Risk for Malnutrition -Dietitian following. -Started on Ensure. -continue to offer foods of choice and assess for need for assistance at mealtimes (e.g. set-up) Debility -Contributing factors include: physical deconditioning, dementia, recent hospitalization - Continue Physical Therapy and Occupational Therapy as able - PT currently recommending "home with home PT" - As above, needs higher level of care due to decreased ability to perform IADLs/ADLs independently Follow-up: 1-2 days as needed Subjective Chief Complaint: altered mental status, poor PO intake Geriatrics consulted for altered mental status HPI- The patient is new to me but seen by the Geriatric Inpatient Consult team. 82 y.o. year-old female admitted to acute care from home for altered mental status. Diagnosed with UTI, started on Rocephin- last dose on 03/02, also given IVF for dehydration. Interval History: Remains on general medical/surgical floor . No reported overnight events, nursing reports patient was confused this morning- not able to say why she was in the hospital. Patient reports she is doing well today, no complaints, has not yet had her breakfast. She is confused during conversation- asking if her is sitting out on the couch. She does know that she is currently at the hospital at time of visit. Seen by PT. Contact guard assist. Ambulated 60ft, 100ft with FWW. Recommending Home with Home PT and Home with Assist PRN Review of Systems Constitutional: Negative for activity change and appetite change. Respiratory: Negative for cough and shortness of breath. Cardiovascular: Negative for chest pain. Gastrointestinal: Negative for abdominal pain and constipation. Genitourinary: Negative for difficulty urinating. Musculoskeletal: Negative for arthralgias and gait problem. Neurological: Negative for dizziness and headaches. Psychiatric/Behavior al: Positive for confusion. Negative for sleep disturbance. Objective BP 131/71 (BP Location: Left arm, Patient Position: Lying) Pulse 63 Temp 36.7 ?C (98 ?F) (Temporal) Resp 17 Ht 5' 4" (1.626 m) Wt 161 lb 13.1 oz (73.4 kg) SpO2 94% BMI 27.78 kg/m? No intake or output data in the 24 hours ending 03/03/23 0906 Wt Readings from Last 3 Encounters: 02/27/23 161 lb 13.1 oz (73.4 kg) 08/28/22 166 lb 12.8 oz (75.7 kg) 02/24/22 165 lb 14.4 oz (75.3 kg) Current Facility-Administere d Medications: acetaminophen (Tylenol) tablet 650 mg, 650 mg, Oral, q6h PRN OR acetaminophen (Tylenol) suppository 650 mg, 650 mg, Rectal, q6h PRN, Angelito Matson MD aspirin chewable tablet 81 mg, 81 mg, Oral, Daily, Angelito Matson MD, 81 mg at 03/03/23 0804 citalopram (CeleXA) tablet 40 mg, 40 mg, Oral, Daily, Regina Yu MD, 40 mg at 03/03/23 0804 enoxaparin (Lovenox) syringe 40 mg, 40 mg, SubCUTAneous, Daily, Angelito Matson MD, 40 mg at 03/03/23 0804 Influenza Vac A&B SA Adj quadrivalent (Fluad) vaccine 0.5 mL, 0.5 mL, IntraMUSCular, Prior to discharge, Angelito Matson MD melatonin tablet 3 mg, 3 mg, Oral, Nightly PRN, Regina Yu MD memantine (Namenda) tablet 5 mg, 5 mg, Oral, BID, Regina Yu MD, 5 mg at 03/03/23 08 [START ON 03/10/2023] memantine (Namenda) tablet 5 mg, 5 mg, Oral, Daily, Regina Yu MD QUEtiapine (SEROquel) tablet 12.5 mg, 12.5 mg, Oral, TID PRN OR OLANZapine (ZyPREXA) 2.5 mg in sterile water 0.5 mL injection, 2.5 mg, IntraMUSCular, TID PRN, Mary Major DO ondansetron ODT (Zofran-ODT) disintegrating tablet 4 mg, 4 mg, Ora (more content not included)... [facility] [id number] 03-02-2023 [id number] Patient is currently active with [facility]. The patients current certification period will on 04/12/23. The patient is currently receiving SN, PT services through the agency. Net Finisher to continue to follow. [facility] BASIC METABOLIC PANELon 02-18 Anion gap [Moles/Vol] 3 mmol/L Normal 06-30 [facility] Comment on above: Performed By: #### L [id number] ####Crew Supervisor: VLADIMIR GALLARDO ([phone])[facility]AMPUSBill [place]ILLZA[place] (SBHLAB)[address] Calcium [Mass/Vol] 8.3 mg/dL Low 8.4-10.4 [facility] Comment on above: Performed By: #### L [id number] ####Crew Supervisor: VLADIMIR GALLARDO ([phone])[facility] [place] (SB[place])[address] Chloride [Moles/Vol] 109 mmol/L High 98-107 [facility] Comment on above: Performed By: #### L [id number] ####Crew Supervisor: VLADIMIR GALLARDO ([phone])[facility] CAMPUSBill [place]ILL[place] (SBHLAB)[address] CO2 [Moles/Vol] 24 mmol/L Normal 22-30 [facility] Comment on above: Performed By: #### L [id number] ####Crew Supervisor: VLADIMIR GALLARDO ([phone])[facility]AMPUSBill [place] (SBHL[place])[address] Creatinine [Mass/Vol] 0.63 mg/dL Normal 0.52-1.04 [facility] Comment on above: Performed By: #### L [id number] ####Crew Supervisor: VLADIMIR GALLARDO ([phone])[facility]AMPUSBill [place] (SBHLAB)[address] [place] [address] [place] GLOMERULAR FILTRATION RATE ML/MIN/1.73 SQ M.PREDICTED 89.3 mL/min/1.73m*2 Normal >60.0 [facility] Comment on above: Result Comment: Calc ulation based on the Chronic Kidney Disease Epidemiology Collaboration (CKD-EPI) equation refit without adjustment for race Performed By: #### L [id number] ####Crew Supervisor: VLADIMIR GALLARDO ([phone])[facility] CAMPUSBill [place] (SBHLAB)[address] Glucose [Mass/Vol] 94 mg/dL Normal 70-100 [facility] Comment on above: Performed By: #### L [id number] ####Crew Supervisor: VLADIMIR GALLARDO ([phone])[facility] (SBHLAB)[address] Potassium [Moles/Vol] 4.1 mmol/L Normal 3.5-5.1 [facility] Comment on above: Performed By: #### L [id number] ####Crew Supervisor: VLADIMIR GALLARDO ([phone])[facility] (SBHLAB)[address] Sodium [Moles/Vol] 137 mmol/L Normal 135-145 [facility] Comment on above: Performed By: #### L [id number] ####Crew Supervisor: VLADIMIR GALLARDO ([phone])[facility] (SBHLAB)[address] Urea nitrogen [Mass/Vol] 15 mg/dL Normal 7-17 [facility] Comment on above: Performed By: #### L AB15 ####Crew Supervisor: VLADIMIR RALPHVAISHNAVI ([phone])[facility] (SBHLAB)[address] Basic metabolic 1998 panelon 03-02-2023 Anion gap [Moles/Vol] 3 mmol/L 3 - 13 mmol/L [facility] Calcium [Mass/Vol] 8.3 mg/dL Low 8.4 - 10. 4 mg/dL [facility] Chloride [Moles/Vol] 109 mmol/L High 98 - 10 7 mmol/L [facility] CO2 [Moles/Vol] 24 mmol/L 22 - 30 mmol/L [facility] Creatinine [Mass/Vol] 0.63 mg/dL 0.52 - 1.04 mg/dL [facility] GFR/1.73 sq M.predicted MDRD (S/P/Bld) [Vol rate/Area] 89.3 mL/min/{1.73_m2} - PINF [facility] Comment on above: Calculation based on the Chronic Kidney Disease Epidemiology Collaboration (CKD-EPI) equation refit without adjustment for race Glucose [Mass/Vol] 94 mg/dL 70 - 100 mg/dL [facility] Interpretation and review of laboratory results Abnormal [facility] Potassium [Moles/Vol] 4.1 mmol/L 3.5 - 5.1 mmol/L [facility] Sodium [Moles/Vol] 137 mmol/L 135 - 145 mmol/L [facility] Urea nitrogen [Mass/Vol] 15 mg/dL 7 - 17 mg/d L [facility] CARECOORDon 03-02-2023 [facility] Care Managment Initial Assessment Date: 03/02/2023 Patient Name: Albina Brown : 1940 Patient Information Source of Information: 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 Software Engineer Name/Contact Information: Renetta THOMSON Cognition/Language: Confused at baseline Permission given to speak with patient technical services representative/careg iver as indicated: Yes Confirmation of Payer with patient/family: Yes Payer Name: An[employer] Medicare Advantage; [facility] Medicaid : No Confirmation of Primary Care Physician: Confirmed PCP Name: Dr. Dennis Coughlin Seen in last 2 years?: Yes Primary Caregiver: Family If assistance needed, confirmed caregiver ready, willing and able to care for patient at discharge: Yes Confirmed with: ALIX Weber Living Arrangements Current Residence: ([facility]) Number of Floors Number of Entry Steps: 2 Bed/Bath Levels: Both first floor Facility: Facility Name: Plan to Return: Lives with: Children Support Systems: Children Activities of Daily Living Ambulation: Assistance Bathing/Dressing: Assistance Elimination/Continen ce/Toileting: Assistance Feeding: Assistance Who Assists with Activities of Daily Living: care givers, family Instrumental Activities of Daily Living Prescription Coverage: Yes Pharmacy Used: [facility] Medication Management: Assistance Type: Dose packaging system Who assists with medication securing and setup?: DIL Transportation/Shopp ing: Assistance Provider Transportation/Shopp ing Assistance Provider Name: family Transportation Mode: Car Needs Assistance with Transportation at Discharge: No Meal Preparation: Assistance Provider Meal Prep Assistance Provider Name: family and caregivers Laundry/Cleaning: Assistance Provider Laundry/Cleaning Assistance Provider Name: family and caregivers Finances/Bill Paying: Assistance Provider Finances/Bill Payer Assistance Provider Name: family Communication: Assistance Types of Care Services/Equipment Utilized Care Services: Skilled Home Health Services, Passport/Waiver Care Services Provider Name: [facility] RN/PT/OT; family friend; Francisco Javier working on getting CONTROL ELECTRICIAN Dialysis Type: Durable Medical Equipment: Cane, Walker (refuses to use) Patient's Goal/Discharge Plan Patient expects to be discharged to: TBD Discharge Planning Actions: Continue to follow Patient's Choice Rights and [employer] and Collaborative Relationships Disclosed as Indicated for Post-Acute Care: Interdisciplinary Team Engagement: Geriatric Assessment, Home Health Care Social Work Referral for: Additional Information: Pt with dementia admitted with decline is mental and physical status, UTI, dehydration. Receiving IV ATBX. 01/21/2023 - pt has been declining ever since per family. Spoke with pt's DIL Renetta Rosenthal via phone, introduced self and role. [facility] pt resides in a trailer alone. Family friend and DIL provide basic care, but pt is alone at times. Pt no longer drives. Pt refuses to use cane or walker and is very unsteady. [facility] pt has been refusing to eat, drink, shower recently. Active with [facility] RN/PT/OT. Active with GERA Mcintyre [phone]. 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 Discussed PT/OT recommendation for Home with HHC and 10/11 assist vs SNF. DIL would like to wait for the geriatric evaluation before making final decision. Also discussed other options such as private duty companions, caregivers, memory care facilities for in the future. [facility] pt's had been at [facility] memory care. DCP: TBD: home with HHC vs SNF TCC will cont to follow. Che Howell RN Normal [facility] CBC W Auto Differential pane l (Bld)Ordered By: Ayleen Nunez on 03-02-2023 Basophils (Bld) [#/Vol] 0.1 10*3/uL 0.0 - 0.2 10*3/uL [facility] Basophils/100 WBC (Bld) 0.8 % 0.0 - 2.0 % [facility] Eosinophils (Bld) [#/Vol] 0.2 10*3/uL 0. 0 - 0.5 10*3/uL [facility] Eosinophils/100 WBC (Bld) 2.4 % 1.0 - 6.0 % [facility] Erythrocyte distribution width (RBC) [Ratio] 13.2 % 11.5 - 14.5 % [facility] Hematocrit (Bld) [Volume fraction] 33.7 % Low 35.0 - 47.0 % [facility] Hemoglobin (Bld) [Mass/Vol] 11.2 g/dL Low 11.7 - 16.0 g/dL [facility] Interpretation and review of laboratory results Abnormal [facility] th Lymphocytes (Bld) [#/Vol] 2.5 10*3/uL 1. 0 - 4.3 10*3/uL [facility] Lymphocytes/100 WBC (Bld) 37.6 % 20 .0 - 40.0 % [facility] MCH (RBC) [Entitic mass] 30.0 pg 26. 0 - 34.0 pg [facility] MCHC (RBC) [Mass/Vol] 33.3 % 32.0 - 36.0 % [facility] MCV (RBC) [Entitic vol] 90.1 fL 80.0 - 98.0 fL [facility] Monocytes (Bld) [#/Vol] 0.6 10*3/uL 0.0 - 0.8 10*3/uL [facility] Monocytes/100 WBC (Bld) 8.3 % 2.0 - 10.0 % [facility] Neutrophils (Bld) [#/Vol] 3.4 10*3/uL 1. 8 - 7.0 10*3/uL [facility] Neutrophils/100 WBC (Bld) 50.9 % 40 .0 - 80.0 % [facility] Nucleated RBC/100 WBC (Bld) [Ratio] 0.0 % [facility] Platelet mean volume (Bld) [Entitic vol] 7.9 fL 7.4 - 12.4 fL [facility] Platelets (Bld) [#/Vol] 174 10*3/uL 140 - 440 10*3/uL [facility] RBC (Bld) [#/Vol] 3.74 10*6/uL Low 3.8 - 5.20 10*6/uL [facility] WBC (Bld) [#/Vol] 6.7 10*3/uL 3.6 - 10.7 10*3/uL [facility] CBC WITH AUTO DIFFERENTIALon 03-02-2023 Basophils (Bld) [#/Vol] 0.1 10*3/uL Normal 0.0-0.2 [facility] Comment on above: Performed By: #### L [id number] ####Crew Supervisor: VLADIMIR GALLARDO ([phone])[facility] [place] (SBHL[facility])[address] Basophils/100 WBC (Bld) 0.8 % Normal 0.0-2.0 [facility] Comment on above: Performed By: #### L [id number] ####Crew Supervisor: VLADIMIR GALLARDO ([phone])[facility] [place] ([place])[address] Eosinophils (Bld) [#/Vol] 0.2 10*3/uL Normal 0.0-0.5 [facility] Comment on above: Performed By: #### L [id number] ####Crew Supervisor: VLADIMIR GALLARDO ([phone])[facility] [place] ([place])[address] Eosinophils/100 WBC (Bld) 2.4 % Normal 1.0-6.0 [facility] Comment on above: Performed By: #### L [id number] ####Crew Supervisor: VLADIMIR GALLARDO ([phone])[facility] [place] ([place])[address] Erythrocyte distribution width (RBC) [Ratio] 13.2 % Normal 11.5-14.5 [facility] Comment on above: Performed By: #### L [id number] ####Crew Supervisor: VLADIMIR GALLARDO ([phone])[facility] [place] ([place])[address] ERYTHROCYTE MEAN CORPUSCULAR HEMOGLOBIN CONCENTRATION (G/DL) BY AUTOMATED 33.3 % Normal 32.0-36.0 [facility] Comment on above: Performed By: #### L [id number] ####Crew Supervisor: VLADIMIR GALLARDO ([phone])[facility] ELLISCarl[facility] (SBHLAB)[address] Hematocrit (Bld) [Volume fraction] 33.7 % Low 35.0-47.0 [facility] Comment on above: Performed By: #### L [id number] ####Crew Supervisor: VLADIMIR GALLARDO ([phone])[facility] CAMPUSBill HILLLOVELACE REG[facility], ROSWELLCarlitos (SBHLAB)[address] Hemoglobin (Bld) [Mass/Vol] 11.2 g/dL Low 11.7-16.0 [facility] Comment on above: Performed By: #### L [id number] ####Crew Supervisor: VLADIMIR GALLARDO ([phone])[facility] CAMPUSBill [place] ([facility])[address] [place] [address] Lymphocytes (Bld) [#/Vol] 2.5 10*3/uL Normal 1.0-4.3 [facility] Comment on above: Performed By: #### L [id number] ####Crew Supervisor: VLADIMIR GALLARDO ([phone])[facility] CAMPUSBill HILLUNITED [facility] AIR [facility] ([facility])[address] [place] [address] Lymphocytes/100 WBC (Bld) 37.6 % Normal 20.0-40.0 [facility] Comment on above: Performed By: #### L [id number] ####Crew Supervisor: VLADIMIR GALLARDO ([phone])[facility] CAMPUSBill HILLLOVELACE REGIONAL [facility]OS[facility], ROSWELLCarlitos (SBHLAB)[address] [place] [address] MCH (RBC) [Entitic mass] 30.0 pg Normal 26.0-34.0 [facility] Comment on above: Performed By: #### L [id number] ####Crew Supervisor: VLADIMIR GALLARDO ([phone])[facility] CAMPUSBill HILLUNITED [facility] (SBHLAB)[address] MCV (RBC) [Entitic vol] 90.1 fL Normal 80.0-98.0 [facility] Comment on above: Performed By: #### L [id number] ####Crew Supervisor: VLADIMIR GALLARDO ([phone])[facility] [place] (SB[facility])[address] Monocytes (Bld) [#/Vol] 0.6 10*3/uL Normal 0.0-0.8 [facility] Comment on above: Performed By: #### L [id number] ####Crew Supervisor: VLADIMIR CORDOVAVARUN ([phone])[facility] [place] ([facility])[address] Monocytes/100 WBC (Bld) 8.3 % Normal 2.0-10.0 [facility] Comment on above: Performed By: #### L [id number] ####Crew Supervisor: VLADIMIR CORDOVAVARUN ([phone])[facility] [place] ([facility])[address] Neutrophils (Bld) [#/Vol] 3.4 10*3/uL Normal 1.8-7.0 [facility] Comment on above: Performed By: #### L [id number] ####Crew Supervisor: VLADIMIR RALPHVAISHNAVI ([phone])[facility]AMPUSA [place] ([place])[address] Neutrophils/100 WBC (Bld) 50.9 % Normal 40.0-80.0 [facility] Comment on above: Performed By: #### L [id number] ####Crew Supervisor: VLADIMIR GALLARDO ([phone])[facility]AMPUSA [place] ([place])[address] NRBC (PER 100 WBCS) BY AUTOMATED COUNT 0.0 /100 WBCs Normal 0.0-2.0 [facility] Comment on above: Performed By: #### L [id number] ####Crew Supervisor: VLADIMIR GALLARDO ([phone])[facility]AMPUSA [place] ([place])[address] Platelet mean volume (Bld) [Entitic vol] 7.9 fL Normal 7.4-12.4 [facility] Comment on above: Performed By: #### L [id number] ####Crew Supervisor: VLADIMIR GALLARDO ([phone])[facility] CAMPUSBill ELLISN (SBHLAB)[address] Platelets (Bld) [#/Vol] 174 10*3/uL Normal 140-440 [facility] Comment on above: Performed By: #### L [id number] ####Crew Supervisor: VLADIMIR GALLARDO ([phone])[facility] CAMPUSA BARBLOVELACE REGIONAL HOSPITAL, ROSWELLN (SBHLAB)[address] RBC (Bld) [#/Vol] 3.74 10*6/uL Low 3.8-5.20 [facility] Comment on above: Performed By: #### L [id number] ####Crew Supervisor: VLADIMIR GALLARDO ([phone])[facility] CAMPUSBill HILLLOVELACE REGIONAL HOSPITAL, ROSWELLN (SBHLAB)[address] WBC (Bld) [#/Vol] 6.7 10*3/uL Normal 3.6-10.7 [facility] Comment on above: Performed By: #### L [id number] ####Crew Supervisor: VLADIMIR GALLARDO ([phone])[facility] CAMPUSBill HILLLOVELACE REGIONAL HOSPITAL, ROSWELLN (SBHLAB)[address] [place] [address] Consulton 03-02-2023 Consult Department of Psychiatry Consult Service Attending Consult Note Reason for Consult: suspected depression in setting of dementia, impacting PO intake Requesting Physician: Dr. Yu CHIEF COMPLAINT: Chief Complaint Patient presents with Nausea Altered Mental Status Lethargy Pt brought in [facility] from home for increased lethargy, per family pt has been sleeping for 20 plus hours a day. Pt only complains of nausea with no vomiting and a headache. 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 History obtained from: patient and past medical records HISTORY OF PRESENT ILLNESS: The patient is a 82 y.o. yo female with significant past medical history of dementia, acid reflux, anxiety, hyperlipidemia, breast cancer (on Tamoxifen, follows with Dr Carlson) who arrived by ambulance after family became concerned b/c she was increasingly lethargic at home. Pt was subsequently admitted for FTT, was found to have a UTI and was Tx with IV Abx and given IVF and psychiatry was consulted. Pt reports that she is doing well. States that she is eating and sleeping well. States that she lives at home with her and denies any concerns there. Cannot state the year or where she is. Denies any concerns at this time. Collateral was obtained from the following individual: No REVIEW OF SYSTEMS: Medical Review Of Systems: Constitutional: Negative for anorexia and fatigue Psychiatric Review Of Systems: Depressed mood:Denies Sleep changes:Denies Appetite changes:Denies Anxiety/panic:Denies Suicidal ideation:Denies Homicidal ideation:Denies Access to weapons:Denies Lifetime Psychiatric Review Of Systems: Gissell or hypomania:Denies Hallucinations:Denie s PAST PSYCHIATRIC HISTORY: The patient is currently receiving care for the above psychiatric illness with PCP. Previous psychiatric hospitalizations: Denies Previous suicide attempts:Denies Past psychiatric medications include: None per chart and pt cannot recall PAST MEDICAL/SURGICAL HISTORY: Past Medical History: Past Medical History: Diagnosis Date Acid reflux Anxiety Breast cancer (HCC) Hyperlipidemia Past Surgical History: Past Surgical History: Procedure Laterality Date BREAST BIOPSY BREAST LUMPECTOMY 11/21/2019 CATARACT EXTRACTION COLONOSCOPY TUBAL LIGATION WISDOM TOOTH EXTRACTION CURRENT MEDICATIONS/ALLERGIE S: Current Facility-Administere d Medications Medication Dose Route Frequency Provider Last Rate Last Admin acetaminophen (Tylenol) tablet 650 mg 650 mg Oral q6h PRN Angelito Matson MD Or acetaminophen (Tylenol) suppository 650 mg 650 mg Rectal q6h PRN Angelito Matson MD aspirin chewable tablet 81 mg 81 mg Oral Daily Angelito Matson MD 81 mg at 03/02/23 0859 [START ON 03/03/2023] citalopram (CeleXA) tablet 40 mg 40 mg Oral Daily Regina Yu MD enoxaparin (Lovenox) syringe 40 mg 40 mg SubCUTAneous Daily Angelito Matson MD 40 mg at 03/02/23 0859 Influenza Vac A&B SA Adj quadrivalent (Fluad) vaccine 0.5 mL 0.5 mL IntraMUSCular Prior to discharge Angelito Matson MD melatonin tablet 3 mg 3 mg Oral Nightly PRN Regina Yu MD memantine (Namenda) tablet 5 mg 5 mg Oral BID Regina Yu MD 5 mg at 03/02/23 1535 [START ON 03/10/2023] memantine (Namenda) tablet 5 mg 5 mg Oral Daily Regina Yu MD ondansetron ODT (Zofran-ODT) disintegrating tablet 4 mg 4 mg Oral q8h PRN Angelito Matson MD 4 mg at 02/28/23 1257 Or ondansetron (Zofran) injection 4 mg 4 mg IntraVENous q6h PRN Angelito Matson MD polyethylene glycol (PEG) 3350 (Miralax) packet 17 g 17 g Oral Daily PRN Angelito Matson MD senna-docusate sodium (Senokot-S) 8.6-50 MG tablet 2 tablet 2 tablet Oral BID Mayank Lynn DO 2 tablet at 03/02/23 0959 tamoxifen (Nolvadex) chemo tablet 20 mg 20 mg Oral Daily Angelito Matson MD 20 mg at 03/02/23 0859 Allergies: No Known Allergies FAMILY HISTORY: Pt cannot recall any SOCIAL HISTORY: Relationship status: Pt states she is ( last month per chart) Living situation: At home with support from family and a friend Substance Use History: Nicotine:Denies Alcohol:Denies Recreational Drugs: Denies PSYCHIATRIC EXAMINATION: Vitals: Vitals: 03/02/23 0725 BP: 124/64 Pulse: 68 Resp: 15 Temp: 36.1 ?C (97 ?F) SpO2: 95% Physical Examination: Constitutional: well developed, well nourished, in no acute distress, and alert Musculoskeletal: gait Not examined Mental Status Examination: Appearance: moderately kept, appears stated age Attitude toward examiner: Cooperative, conversant, engaged, and with good eye contact. Behavior/motor: No psychomotor agitation or retardation, no tremor or other abnormal movements. Speech: Coherent and Regular rate, rhythm, volume and articulation Mood: "Fine!" Affe (more content not included)... Normal [facility] Consult [facility] Geriatric Medicine Inpatient Consult Service Admission Date: 02/27/2023 Admission Status: INPATIENT Chief Complaint: altered mental status, poor PO intake Reason for Appointment Geriatrics consulted for altered mental status Assessment & Plan Principal Problem: Failure to thrive in adult Active Problems: Dementia (HCC) At risk for delirium Depression At risk for malnutrition Debility Dementia -likely Alzheimer's Disease -needs 24/7 care at this time due to poor IADL/ADL care in setting of dementia and depression -She takes namenda XR 21 mg daily at home. It was started in December. Family reported no benefit. I am concerned it could be impacting her mood. -Will wean off the namenda -Will decrease namenda to 5 mg BID x7 days (equivalent to the XR 14 mg dose), then 5 mg daily x 7 days. Then stop. Monitor for cognitive changes -Recommend follow up at [facility] for geriatric cognitive evaluation when in usual state of health. Depression -Suspect depression is contributing to apathy, poor PO intake, and decline in ADLs at home. Do not think these symptoms are related only to her dementia, as they do not improve with increased family involvement. -Patient recently had a major life change (spouse in early January) -Family had increased the celexa back to previous home dose of 40 mg daily on 02/18. -qtc is within normal limits. Ok to continue the celexa 40 mg daily for now while we await psychiatry recommendations. -Will consult psychiatry for evaluation. DIL aware. At Risk for Malnutrition -Dietitian following. -Started on Ensure. Debility -Contributing factors include: physical deconditioning, dementia, recent hospitalization -Physical Therapy and Occupational Therapy evaluations Subjective: HPI 82 y.o. year-old female with past medical history of dementia, acid reflux, anxiety, hyperlipidemia, breast cancer (on Tamoxifen, follows with Dr Carlson) who presented to hospital with altered mental status. I reviewed patient's chart, including H&P and multiple progress notes. The following is a summary. -Patient has been having increased confusion, poor appetite, and increasing weakness for the past two weeks. Has been sleep for 20 or more hours a day. She did lose her one month ago. -found to have UTI and treated with IV antibiotics -given IVF. Physical Therapy and Occupational Therapy saw patient and recommend home with home health and 24/ supervision. -Seen by geriatrics during last hospitalization in January. Family reported long standing history of cognitive decline. Her had recently and she didn't remember he . She was brought to the hospital after being found wandering outside. BMP today: unremarkable CBC today: within normal limits Urine culture did come back within normal limits Conversation with patient: -patient is aware she is at [facility] but is not sure why. She says she generally "does not feel well today". She has trouble describing how she is feeling. On ROS, she somewhat admits to stomach issues. May feel nauseated when she eats. She is not sure how well she is moving her bowels. Thinks she may have constipation. -she denies pain -says her appetite is OK and that she is sleeping OK -doesn't know the month (thinks it may be June or July) or the year. Conversation with caregiver: ALIX Weber. -patient did well for one day after the hospitalization before declining at home -At first, she wouldn't fix herself food and do her chores like she would normally. The apathy continued to worsen. She would barely eat or drink even with encouragement from family and meals being prepared by family. She wouldn't take care of her ADLs such as brushing her teeth. This was something was doing before her in early January. -Kept telling family she is "bored". Family would suggest things for her and she wouldn't do them. Even when family actively tried to engage patient in activities (as opposed to just asking her if she wanted to do something) she would refuse to do them. -she is sleeping for most of the day -the namenda had been started by PCP in early December. ALIX not sure it has helped at all -she initially took the celexa 20 mg after hospital discharge. However, family increased it back to the prior dose of 40 mg on February 18 as they felt she was struggling with depression. Patient's had been in the longterm from October to Early January before his passing. Patient was living on her own at that time but did have family coming over every day and a family friend would come over three days a week to help take care of her. At that time, she was doing her own ADLs and participating in IADLs such as cleaning. Advance Care Planning Healthcare Power of Tongue Carrier: yes Financial P (more content not included)... Normal [facility] IDNon 03-02-2023 IDN The patient is Moderately Stable - Low risk of patient condition declining or worsening The patient's goals for the shift include to go home The clinical goals for the shift include to go home Normal [facility] Progress Noteon 03-02-2023 Progress Note PHYSICAL THERAPY [facility] Treatment Note Name/MRN: Albina Brown ([id number]) Date of : 1940 Age: 82 y.o. Room/Bed: B1-153/B1153 B Visit #: 1 out of 4 visits Discharge Recommendation: Home with Home PT and Home with Assist PRN Equipment Needed: none Prior Level of Function ADL Assistance: Independent Ambulation Assistance: Independent Transfer Assistance: Independent Assessment Pt presents with slight increased functional mobility but does much better with FWW rather than no device. Pt demonstrates decreased overall balance this admission. Pt is SBA for bed mobility, min A x 1 for transfers and ambulation. Pt is expected to benefit from continued therapy in order to increase overall independence. Subjective Pt is agreeable to therapy. Observation: Per RN okay to see. Pain: Pt denies any current pain. Medical Precautions: No active isolations Proper PPE donned/doffed in accordance with facility standards. Fall Risk: Jim Fall Risk Score: 85 (High Risk) Precautions/Restrict ions: N/A Overall Cognitive Status: Exceptions Overall Orientation Status: Unable to Assess Family/Caregiver Present: none Objective Ambulation Ambulation 1 Assistive device(s) used: none and front wheeled walker Assist level: Min Assist Distance (ft): 60ft x 1 (without), 100ft x 1 with FWW Quality of gait: demonstrates a short reciprocal gait pattern, decreased step height and length, lateral swaying and posterior lean, unsteadiness throughout but no major LOB noted Transfers/Mobility Sit to stand: Contact Guard Stand to sit: Contact Guard Pt demonstrates proper hand placement unsteadiness with ascend and grabbing onto bed for stability Device(s) used: none Bed Mobility Supine to sit: SBA Sit to supine: SBA Denied dizziness. Pt HOB elevated and use of bed rails. Extended time to complete. Plan Continue acute PT per plan of care. Safety/Education Safety Safety Devices in place: All fall risk precautions in place, call light within reach, left in bed, bed alarm in place, gait belt, patient at risk for falls, and nurse notified Restraints: No Education Education Given To: patient Education Provided: PT Role, PT Goals, Gait Training, Precautions, Transfer Training, and Equipment Education Method: Verbal and Demonstration Barriers to Learning: None Education Outcome: Verbalized Understanding and Demonstrated Understanding Outcome Measures AM-PAC AM-PAC Inpatient Mobility Raw Score (No Stairs) : 19 Goals Patient Stated Goal: Get back home. Encounter Problems Encounter Problems (Active) Mobility Patient will ambulate 150 feet with SBA and no assistive device in order to improve safety and independence with mobility. (Progressing) Start: 03/01/23 Expected End: 03/08/23 Patient will ascend and descend 5 stairs with one railing and CGA in order to safely negotiate home. (Progressing) Start: 03/01/23 Expected End: 03/08/23 Transfers Patient will complete functional transfer with no assistive device with modified independence in order to prepare for ambulation. (Progressing) Start: 03/01/23 Expected End: 03/08/23 Therapy Time Individual Co-treatment Time In 1414 Time Out 1427 Minutes 13 Timed Code Treatment Minutes: 10 Minutes (1 gait) Marisabel Suarez, CASING TRIMMER Normal [facility] BASIC METABOLIC PANELon 11 Anion gap [Moles/Vol] 4 mmol/L Normal 3-13 [facility] Comment on above: Performed By: #### L AB103, LAB15 ####Crew Supervisor: VLADIMIR GALLARDO ([phone])[facility] ([facility])[address] [place] [address] Calcium [Mass/Vol] 8.5 mg/dL Normal 8.4-10.4 [facility] Comment on above: Performed By: #### L AB103, LAB15 ####Crew Supervisor: VLADIMIR GALLARDO ([phone])[facility] ([facility])[address] Chloride [Moles/Vol] 109 mmol/L High 98-107 [facility] Comment on above: Performed By: #### L AB103, LAB15 ####Crew Supervisor: VLADIMIR GALLARDO ([phone])[facility] ([facility])[address] CO2 [Moles/Vol] 23 mmol/L Normal 22-30 [facility] Comment on above: Performed By: #### L AB103, LAB15 ####Crew Supervisor: VLADIMIR GALLARDO ([phone])[facility] ([facility])[address] Creatinine [Mass/Vol] 0.53 mg/dL Normal 0.52-1.04 [facility] Comment on above: Performed By: #### L AB103, LAB15 ####Crew Supervisor: VLADIMIR GALLARDO ([phone])[facility] ([facility])[address] GLOMERULAR FILTRATION RATE ML/MIN/1.73 SQ M.PREDICTED >90.0 Normal >60.0 [facility] Comment on above: Result Comment: Calc ulation based on the Chronic Kidney Disease Epidemiology Collaboration (CKD-EPI) equation refit without adjustment for race Performed By: #### L AB103, LAB15 ####Crew Supervisor: VLADIMIR GALLARDO ([phone])[facility] ([facility])[address] Glucose [Mass/Vol] 94 mg/dL Normal 70-100 [facility] Comment on above: Performed By: #### L AB103, LAB15 ####Crew Supervisor: VLADIMIR GALLARDO ([phone])[facility] ([facility])[address] Potassium [Moles/Vol] 3.4 mmol/L Low 3.5-5.1 [facility] Comment on above: Performed By: #### L AB103, LAB15 ####Crew Supervisor: VLADIMIR GALLARDO ([phone])[facility] ([facility])[address] Sodium [Moles/Vol] 136 mmol/L Normal 135-145 [facility] Comment on above: Performed By: #### L AB103, LAB15 ####Crew Supervisor: VLADIMIR GALLARDO ([phone])[facility] ([facility])[address] Urea nitrogen [Mass/Vol] 13 mg/dL Normal 7-17 [facility] Comment on above: Performed By: #### L AB103, LAB15 ####Crew Supervisor: VLADIMIR GALLARDO ([phone])[facility] ([facility])[address] Bacteria identified Cx Nom ( U)Ordered By: Pooja Rodrigues on 03-01-2023 Interpretation and review of laboratory results Normal [facility] Basic metabolic 1998 panelon 03-01-2023 Anion gap [Moles/Vol] 4 mmol/L 3 - 13 mmol/L [facility] Calcium [Mass/Vol] 8.5 mg/dL 8.4 - 10. 4 mg/dL [facility] Chloride [Moles/Vol] 109 mmol/L High 98 - 10 7 mmol/L [facility] CO2 [Moles/Vol] 23 mmol/L 22 - 30 mmol/L [facility] Creatinine [Mass/Vol] 0.53 mg/dL 0.52 - 1.04 mg/dL [facility] GFR/1.73 sq M.predicted MDRD (S/P/Bld) [Vol rate/Area] - PINF [facility] Comment on above: Calculation based on the Chronic Kidney Disease Epidemiology Collaboration (CKD-EPI) equation refit without adjustment for race Glucose [Mass/Vol] 94 mg/dL 70 - 100 mg/dL [facility] Interpretation and review of laboratory results Abnormal [facility] Potassium [Moles/Vol] 3.4 mmol/L Low 3.5 - 5.1 mmol/L [facility] Sodium [Moles/Vol] 136 mmol/L 135 - 145 mmol/L [facility] Urea nitrogen [Mass/Vol] 13 mg/dL 7 - 17 mg/d L [facility] CBC W Auto Differential pane l (Bld)on 03-01-2023 Basophils (Bld) [#/Vol] 0.1 10*3/uL 0.0 - 0.2 10*3/uL [facility] Basophils/100 WBC (Bld) 1.0 % 0.0 - 2.0 % [facility] Eosinophils (Bld) [#/Vol] 0.1 10*3/uL 0. 0 - 0.5 10*3/uL [facility] Eosinophils/100 WBC (Bld) 1.9 % 1.0 - 6.0 % [facility] Erythrocyte distribution width (RBC) [Ratio] 12.9 % 11.5 - 14.5 % [facility] Hematocrit (Bld) [Volume fraction] 35.3 % 35.0 - 47.0 % [facility] Hemoglobin (Bld) [Mass/Vol] 11.9 g/dL 11.7 - 16.0 g/dL [facility] Interpretation and review of laboratory results Normal [facility] th Lymphocytes (Bld) [#/Vol] 2.1 10*3/uL 1. 0 - 4.3 10*3/uL [facility] Lymphocytes/100 WBC (Bld) 33.1 % 20 .0 - 40.0 % [facility] MCH (RBC) [Entitic mass] 30.6 pg 26. 0 - 34.0 pg [facility] MCHC (RBC) [Mass/Vol] 33.7 % 32.0 - 36.0 % [facility] MCV (RBC) [Entitic vol] 90.8 fL 80.0 - 98.0 fL [facility] Monocytes (Bld) [#/Vol] 0.6 10*3/uL 0.0 - 0.8 10*3/uL [facility] Monocytes/100 WBC (Bld) 8.6 % 2.0 - 10.0 % [facility] Neutrophils (Bld) [#/Vol] 3.6 10*3/uL 1. 8 - 7.0 10*3/uL [facility] Neutrophils/100 WBC (Bld) 55.4 % 40 .0 - 80.0 % [facility] Nucleated RBC/100 WBC (Bld) [Ratio] 0.2 % [facility] Platelet mean volume (Bld) [Entitic vol] 7.9 fL 7.4 - 12.4 fL [facility] Platelets (Bld) [#/Vol] 154 10*3/uL 140 - 440 10*3/uL [facility] RBC (Bld) [#/Vol] 3.88 10*6/uL 3.8 - 5.20 10*6/uL [facility] WBC (Bld) [#/Vol] 6.5 10*3/uL 3.6 - 10.7 10*3/uL [facility] CBC WITH AUTO DIFFERENTIALon 03-01-2023 Basophils (Bld) [#/Vol] 0.1 10*3/uL Normal 0.0-0.2 [facility] Comment on above: Performed By: #### L [id number] ####Crew Supervisor: VLADIMIR GALLARDO ([phone])[facility] [place] ([facility])[address] Basophils/100 WBC (Bld) 1.0 % Normal 0.0-2.0 [facility] Comment on above: Performed By: #### L [id number] ####Crew Supervisor: VLADIMIR GALLARDO ([phone])[facility] ([facility])[address] [place] [address] Eosinophils (Bld) [#/Vol] 0.1 10*3/uL Normal 0.0-0.5 [facility] Comment on above: Performed By: #### L [id number] ####Crew Supervisor: VLADIMIR GALLARDO ([phone])[facility] [place] ([facility])[address] [place] [address] Eosinophils/100 WBC (Bld) 1.9 % Normal 1.0-6.0 [facility] Comment on above: Performed By: #### L [id number] ####Crew Supervisor: VLADIMIR GALLARDO ([phone])[facility] [place] ([facility])[address] [place] [address] Erythrocyte distribution width (RBC) [Ratio] 12.9 % Normal 11.5-14.5 [facility] Comment on above: Performed By: #### L [id number] ####Crew Supervisor: VLADIMIR GALLARDO ([phone])[facility] [place] ([facility])[address] [place] [address] ERYTHROCYTE MEAN CORPUSCULAR HEMOGLOBIN CONCENTRATION (G/DL) BY AUTOMATED 33.7 % Normal 32.0-36.0 [facility] Comment on above: Performed By: #### L [id number] ####Crew Supervisor: VLADIMIR RALPHVAISHNAVI ([phone])[facility] [place] ([facility])[address] [place] [address] Hematocrit (Bld) [Volume fraction] 35.3 % Normal 35.0-47.0 [facility] Comment on above: Performed By: #### L [id number] ####Crew Supervisor: VLADIMIR RALPHVAISHNAVI ([phone])[facility] [place] [address] Hemoglobin (Bld) [Mass/Vol] 11.9 g/dL Normal 11.7-16.0 [facility] Comment on above: Performed By: #### L [id number] ####Crew Supervisor: VLADIMIR CORDOVAVARUN ([phone])[facility] ([facility])[address] [place] [address] Lymphocytes (Bld) [#/Vol] 2.1 10*3/uL Normal 1.0-4.3 [facility] Comment on above: Performed By: #### L [id number] ####Crew Supervisor: VLADIMIR RALPHVAISHNAVI ([phone])[facility] ([facility])[address] [place] [address] Lymphocytes/100 WBC (Bld) 33.1 % Normal 20.0-40.0 [facility] Comment on above: Performed By: #### L [id number] ####Crew Supervisor: VLADIMIR RALPHVAISHNAVI ([phone])[facility] ([facility])[address] [place] [address] MCH (RBC) [Entitic mass] 30.6 pg Normal 26.0-34.0 [facility] Comment on above: Performed By: #### L [id number] ####Crew Supervisor: VLADIMIR RALPHVAISHNAVI ([phone])[facility] ([facility])[address] [place] [address] MCV (RBC) [Entitic vol] 90.8 fL Normal 80.0-98.0 [facility] Comment on above: Performed By: #### L [id number] ####Crew Supervisor: VLADIMIR RALPHVAISHNAVI ([phone])[facility] ([facility])[address] Monocytes (Bld) [#/Vol] 0.6 10*3/uL Normal 0.0-0.8 [facility] Comment on above: Performed By: #### L [id number] ####Crew Supervisor: VLADIMIR CORDOVAVARUN ([phone])[facility] ([facility])[address] Monocytes/100 WBC (Bld) 8.6 % Normal 2.0-10.0 [facility] Comment on above: Performed By: #### L [id number] ####Crew Supervisor: VLADIMIR CORDOVAVARUN ([phone])[facility] ([facility])[address] Neutrophils (Bld) [#/Vol] 3.6 10*3/uL Normal 1.8-7.0 [facility] Comment on above: Performed By: #### L [id number] ####Crew Supervisor: VLADIMIR RALPHVAISHNAVI ([phone])[facility] ([facility])[address] Neutrophils/100 WBC (Bld) 55.4 % Normal 40.0-80.0 [facility] Comment on above: Performed By: #### L [id number] ####Crew Supervisor: VLADIMIR RALPHVAISHNAVI ([phone])[facility] ([facility])[address] [place] [address] [place] NRBC (PER 100 WBCS) BY AUTOMATED COUNT 0.2 /100 WBCs Normal 0.0-2.0 [facility] Comment on above: Performed By: #### L [id number] ####Crew Supervisor: VLADIMIR GALLARDO ([phone])[facility] ([facility])[address] Platelet mean volume (Bld) [Entitic vol] 7.9 fL Normal 7.4-12.4 [facility] Comment on above: Performed By: #### L [id number] ####Crew Supervisor: VLADIMIR GALLARDO ([phone])[facility] ([facility])[address] Platelets (Bld) [#/Vol] 154 10*3/uL Normal 140-440 [facility] Comment on above: Performed By: #### L [id number] ####Crew Supervisor: VLADIMIR GALLARDO ([phone])[facility] ([facility])[address] RBC (Bld) [#/Vol] 3.88 10*6/uL Normal 3.8-5.20 [facility] Comment on above: Performed By: #### L [id number] ####Crew Supervisor: VLADIMIR GALLARDO ([phone])[facility] ([facility])[address] [place] [address] WBC (Bld) [#/Vol] 6.5 10*3/uL Normal 3.6-10.7 [facility] Comment on above: Performed By: #### L [id number] ####Crew Supervisor: VLADIMIR RALPHVAISHNAVI ([phone])[facility] ([facility])[address] [place] [address] IDNon 03-01-2023 IDN The patient is Moderately Stable - Low risk of patient condition declining or worsening The patient's goals for the shift include to go home The clinical goals for the shift include Problem: Knowledge Deficit Goal: Patient/family/careg iver demonstrates understanding of disease process, treatment plan, medications, and discharge instructions Outcome: Not Progressing Normal [facility] Laboratory - Chemistry and C hemistry - challengeon 03-01-2023 Magnesium [Mass/Vol] 2.0 mg/dL 1.6 - 2 .3 mg/dL [facility] Laboratory - Microbiology an d Antimicrobial susceptibilityOrdered By: Pooja Rodrigues on 03-01-2023 Bacteria identified Cx Nom (U) Normal urogenital sonal present [facility] MAGNESIUMon 03-01-2023 Magnesium [Mass/Vol] 2.0 mg/dL Normal 1.6-2.3 [facility] Comment on above: Performed By: #### L [id number], [id number] ####Crew Supervisor: VLADIMIR GALLARDO ([phone])[facility] ([facility])[address] [place] [address] Magnesium [Mass/Vol]on 03-01 Interpretation and review of laboratory results Normal [facility] Consulton 02-28-2023 Consult Nutrition Assessment Type and Reason for Visit: Initial, Consult (Poor PO) Nutrition Recommendations/Plan : Continue with Adult diet Regular Initiate Ensure Plus strawberry BID per MNT protocol. Ensure Plus provides 350 kcals and 13 g of protein per 8 oz serving. Please document pt's PO intakes via flowsheet to accurately assess PO intake adequacy. Vitamin D was checked last month and WNL. Suggest recheck with decreased PO and decreased activity for 1 mo. Monitor intakes, weights, and labs weekly. RD will follow. Malnutrition Assessment: Malnutrition Status: At risk for malnutrition (Comment) (decreased PO) Context: Social/Environmental Circumstances Findings of the 6 clinical characteristics of malnutrition: Energy Intake: 50% or less estimated energy requirements for 1 month or longer (Pt's a month ago.) Weight Loss: (3% wt loss in 6 mo) Body Fat Loss: Unable to assess Muscle Mass Loss: Unable to assess Fluid Accumulation: No significant fluid accumulation Drug Safety Scientist Strength: Not Performed Nutrition Assessment: Pt was admitted with FTT, nausea, AMS, and lethargy. Family has noticed that pt has not been eating, drinking, and sleeping for 20+ hours a day. Family has been having to force her to eat/drink prior to admission. Pt reportedly lost her a month ago. This AM, pt was pleasant, reports she has an appetite, but is a poor historian. Pt reported that Estimated Daily Nutrient Needs: Energy Requirements Based On: Kcal/kg Weight Used for Energy Requirements: Point Weight for Energy Calculation (kg): 55 kg Total Energy Requirements (kcals/day): 7734-7516 kcals (25-30 kcals/kg) Weight Used for Protein Requirements: Point Weight in Kg Used for Protein Requirements: 55 kg Estimated Total Protein (g/day): 55-66 (1-1.2g/kg) Estimated Daily Total Fluid (ml/day): 3247-5915 ml/day or per MD Nutrition Related Findings: no edema, BUN 19 Wound Type: None Current Nutrition Therapies: Adult diet Regular Current Oral Intake Average Meal Intake: (Pt had not eaten breakfast yet; decreased PO CASING TRIMMER) Average Supplements Intake: None Ordered Anthropometric Measures: Height: 162.6 cm (5' 4") Current Body Weight: 73 kg (161 lb) Weight Source: Bed Scale Admission Body Weight: 73 kg (161 lb) Usual Body Weight: 75.3 kg (166 lb) (08/28/22) % Weight Change (Calculated): -3 Point Body Weight (lbs) (Calculated): 120 lbs Point Body Weight (Kg) (Calculated): 55 kg % Point Body Weight (Calculated): 134.2 % BMI (kg/m2) (Calculated): 27.6 Weight Adjustment For: No Adjustment BMI Categories: Overweight (BMI 25.0-29.9) Nutrition Diagnosis: Inadequate oral intake, Inadequate protein intake related to psychological cause or life stress as evidenced by poor intake prior to admission Nutrition Interventions: Nutrition Education/Counseling : No recommendation at this time Coordination of Nutrition Care: Continue to monitor while inpatient Plan of Care discussed with: Patient Goals: Goals: PO intake 75% or greater, by next RD assessment Nutrition Monitoring and Evaluation: Behavioral-Environme ntal Outcomes: None Identified Food/Nutrient Intake Outcomes: Diet Advancement/Toleranc e, Food and Nutrient Intake, Supplement Intake Physical Signs/Symptoms Outcomes: Biochemical Data, GI Status, Fluid Status or Edema, Nutrition Focused Physical Findings, Skin, Weight Discharge Planning: Continue current diet, Continue Oral Nutrition Supplement Belén Garcia RD Contact: *[phone] or via Secure Chat [facility] IDNon 02-28-2023 IDN Problem: Potential for Compromised Skin Integrity Goal: Skin Integrity is Maintained or Improved Outcome: Progressing Flowsheets (Taken 02/28/2023 0527) Skin integrity is maintained or improved: Assess and monitor skin integrity The patient is Moderately Stable - Low risk of patient condition declining or worsening The patient's goals for the shift include to go home The clinical goals for the shift include to go home [facility] Laboratory - Chemistry and C hemistry - challengeon 02-28-2023 Troponin I.cardiac [Mass/Vol] ng/mL NINF - 0.034 ng/mL [employer] No Panel InformationOrdered By: Mayank Pineda on 02-28-2023 P Rupert 61 degrees [employer] Work Phone: OR Interval 200 ms [employer] Work Phone: QRS Rupert -22 degrees [employer] Work Phone: QRSD Interval 81 ms [employer] Work Phone: QT Interval 422 ms [employer] Work Phone: QTC Interval 441 ms [employer] Work Phone: T Wave Rupert 57 degrees [employer] Work Phone: [employer] Work Phone: No Panel Informationon 02-28 Mayank Pineda MD - 02/28/2023 IMPRESSION: Sinus rhythm Borderline left axis deviation Abnormal R-wave progression, early transition Compared to ECG 11/18/2019 12:36:03 No significant changes Electronically Signed On 02-28-2023 7:03:50 EST by Mayank Pineda [employer] Progress Noteon 02-28-2023 Progress Note Nutrition Assessment Type and Reason for Visit: Initial, Consult (Poor PO) Nutrition Recommendations/Plan : Continue with Adult diet Regular Initiate Ensure Plus strawberry BID per MNT protocol. Ensure Plus provides 350 kcals and 13 g of protein per 8 oz serving. Please document pt's PO intakes via flowsheet to accurately assess PO intake adequacy. Vitamin D was checked last month and WNL. Suggest recheck with decreased PO and decreased activity for 1 mo. Monitor intakes, weights, and labs weekly. RD will follow. Malnutrition Assessment: Malnutrition Status: At risk for malnutrition (Comment) (decreased PO) Context: Social/Environmental Circumstances Findings of the 6 clinical characteristics of malnutrition: Energy Intake: 50% or less estimated energy requirements for 1 month or longer (Pt's a month ago.) Weight Loss: (3% wt loss in 6 mo) Body Fat Loss: Unable to assess Muscle Mass Loss: Unable to assess Fluid Accumulation: No significant fluid accumulation Drug Safety Scientist Strength: Not Performed Nutrition Assessment: Pt was admitted with FTT, nausea, AMS, and lethargy. Family has noticed that pt has not been eating, drinking, and sleeping for 20+ hours a day. Family has been having to force her to eat/drink prior to admission. Pt reportedly lost her a month ago. This AM, pt was pleasant, reports she has an appetite, but is a poor historian. Pt reported that Estimated Daily Nutrient Needs: Energy Requirements Based On: Kcal/kg Weight Used for Energy Requirements: Point Weight for Energy Calculation (kg): 55 kg Total Energy Requirements (kcals/day): 1001-3132 kcals (25-30 kcals/kg) Weight Used for Protein Requirements: Point Weight in Kg Used for Protein Requirements: 55 kg Estimated Total Protein (g/day): 55-66 (1-1.2g/kg) Estimated Daily Total Fluid (ml/day): 1616-0769 ml/day or per MD Nutrition Related Findings: no edema, BUN 19 Wound Type: None Current Nutrition Therapies: Adult diet Regular Current Oral Intake Average Meal Intake: (Pt had not eaten breakfast yet; decreased PO CASING TRIMMER) Average Supplements Intake: None Ordered Anthropometric Measures: Height: 162.6 cm (5' 4") Current Body Weight: 73 kg (161 lb) Weight Source: Bed Scale Admission Body Weight: 73 kg (161 lb) Usual Body Weight: 75.3 kg (166 lb) (08/28/22) % Weight Change (Calculated): -3 Point Body Weight (lbs) (Calculated): 120 lbs Point Body Weight (Kg) (Calculated): 55 kg % Point Body Weight (Calculated): 134.2 % BMI (kg/m2) (Calculated): 27.6 Weight Adjustment For: No Adjustment BMI Categories: Overweight (BMI 25.0-29.9) Nutrition Diagnosis: Inadequate oral intake, Inadequate protein intake related to psychological cause or life stress as evidenced by poor intake prior to admission Nutrition Interventions: Nutrition Education/Counseling : No recommendation at this time Coordination of Nutrition Care: Continue to monitor while inpatient Plan of Care discussed with: Patient Goals: Goals: PO intake 75% or greater, by next RD assessment Nutrition Monitoring and Evaluation: Behavioral-Environme ntal Outcomes: None Identified Food/Nutrient Intake Outcomes: Diet Advancement/Toleranc e, Food and Nutrient Intake, Supplement Intake Physical Signs/Symptoms Outcomes: Biochemical Data, GI Status, Fluid Status or Edema, Nutrition Focused Physical Findings, Skin, Weight Discharge Planning: Continue current diet, Continue Oral Nutrition Supplement Belén Garcia RD Contact: *[phone] or via Secure Chat [facility] Progress Note [facility] Inpatient Consult Service Admission Date: 02/27/2023 Consult Date: 02/28/23 Consult reason: altered mental status Geriatric consult acknowledged. Please contact covering physician via Secure Chat with urgent questions or concerns. Consult will be completed on next business day. John Mai MD 02/28/2023 7:17 AM Normal [facility] TROPONIN Ion 02-28-2023 Troponin I.cardiac [Mass/Vol] ng/mL Normal <0.034 [facility] Comment on above: Result Comment: SAYRA Spencer COMMENTS: Patients with high levels of Biotin oral intake (ie >5 mg/day) may have falsely decreased Troponin levels. Performed By: #### L [id number] #### Crew Supervisor: MARION CARMEN ([phone]) [facility] ([address] Troponin I.cardiac [Mass/Vol ]on 02-28-2023 Interpretation and review of laboratory results Normal [facility] Patients with high levels of Biotin oral intake (ie >5 mg/day) may have falsely decreased Troponin levels. [facility] Vital signsOrdered By: Kell Pineda on 02-28-2023 Heart rate 65 /min bpm [facility] Work Phone: CBC W Auto Differential pane l (Bld)Ordered By: Denise Mobley on 02-27-2023 Basophils (Bld) [#/Vol] 0.0 10*3/uL 0.0 - 0.2 10*3/uL [facility] Basophils/100 WBC (Bld) 0.5 % 0.0 - 2.0 % [facility] Eosinophils (Bld) [#/Vol] 0.1 10*3/uL 0. 0 - 0.5 10*3/uL [facility] Eosinophils/100 WBC (Bld) 0.8 % Low 1.0 - 6.0 % [facility] Erythrocyte distribution width (RBC) [Ratio] 13.2 % 11.5 - 14.5 % [facility] Hematocrit (Bld) [Volume fraction] 40.0 % 35.0 - 47.0 % [facility] Hemoglobin (Bld) [Mass/Vol] 13.2 g/dL 11.7 - 16.0 g/dL [facility] Interpretation and review of laboratory results Abnormal [facility] th Lymphocytes (Bld) [#/Vol] 2.0 10*3/uL 1. 0 - 4.3 10*3/uL [facility] Lymphocytes/100 WBC (Bld) 24.0 % 20 .0 - 40.0 % [facility] MCH (RBC) [Entitic mass] 30.1 pg 26. 0 - 34.0 pg [facility] MCHC (RBC) [Mass/Vol] 33.1 % 32.0 - 36.0 % [facility] MCV (RBC) [Entitic vol] 91.2 fL 80.0 - 98.0 fL [facility] Monocytes (Bld) [#/Vol] 0.6 10*3/uL 0.0 - 0.8 10*3/uL [facility] Monocytes/100 WBC (Bld) 7.4 % 2.0 - 10.0 % [facility] Neutrophils (Bld) [#/Vol] 5.6 10*3/uL 1. 8 - 7.0 10*3/uL [facility] Neutrophils/100 WBC (Bld) 67.3 % 40 .0 - 80.0 % [facility] Nucleated RBC/100 WBC (Bld) [Ratio] 0.1 % [facility] Platelet mean volume (Bld) [Entitic vol] 7.8 fL 7.4 - 12.4 fL [facility] Platelets (Bld) [#/Vol] 210 10*3/uL 140 - 440 10*3/uL [facility] RBC (Bld) [#/Vol] 4.38 10*6/uL 3.8 - 5.20 10*6/uL [facility] WBC (Bld) [#/Vol] 8.4 10*3/uL 3.6 - 10.7 10*3/uL [facility] CBC WITH AUTO DIFFERENTIALon 02-27-2023 Basophils (Bld) [#/Vol] 0.0 10*3/uL Normal 0.0-0.2 [facility] Comment on above: Performed By: #### L [id number] #### Crew Supervisor: MARION CARMEN ([phone]) [facility]) [address] [place] [address] Basophils/100 WBC (Bld) 0.5 % Normal 0.0-2.0 [facility] Comment on above: Performed By: #### L [id number] #### Crew Supervisor: MARION CARMEN ([phone]) [facility]) [address] [place] [address] Eosinophils (Bld) [#/Vol] 0.1 10*3/uL Normal 0.0-0.5 [facility] Comment on above: Performed By: #### L [id number] #### Crew Supervisor: MARION CARMEN ([phone]) [facility]) [address] [place] [place] [address] Eosinophils/100 WBC (Bld) 0.8 % Low 1.0-6.0 [facility] Comment on above: Performed By: #### L [id number] #### Crew Supervisor: MARION CARMEN ([phone]) [facility]) [address] [place] [address] Erythrocyte distribution width (RBC) [Ratio] 13.2 % Normal 11.5-14.5 [facility] Comment on above: Performed By: #### L [id number] #### Crew Supervisor: MARION CARMEN ([phone]) [facility]) [address] [place] [address] ERYTHROCYTE MEAN CORPUSCULAR HEMOGLOBIN CONCENTRATION (G/DL) BY AUTOMATED 33.1 % Normal 32.0-36.0 [facility] Comment on above: Performed By: #### L [id number] #### Crew Supervisor: MARION CARMEN ([phone]) [facility]) [address] [place] [place] [address] Hematocrit (Bld) [Volume fraction] 40.0 % Normal 35.0-47.0 [facility] Comment on above: Performed By: #### L [id number] #### Crew Supervisor: MARION CARMEN ([phone]) [facility] ([facility]) [address] [place] [address] Hemoglobin (Bld) [Mass/Vol] 13.2 g/dL Normal 11.7-16.0 [facility] Comment on above: Performed By: #### L [id number] #### Crew Supervisor: MARION CARMEN ([phone]) [facility] ([facility]) [address] [place] [address] Lymphocytes (Bld) [#/Vol] 2.0 10*3/uL Normal 1.0-4.3 [facility] Comment on above: Performed By: #### L [id number] #### Crew Supervisor: MARION CARMEN ([phone]) [facility]) [address] [place] [address] Lymphocytes/100 WBC (Bld) 24.0 % Normal 20.0-40.0 [facility] Comment on above: Performed By: #### L AB239 #### Crew Supervisor: MARION CARMEN ([phone]) [facility] ([facility]) [address] [place] [address] MCH (RBC) [Entitic mass] 30.1 pg Normal 26.0-34.0 [facility] Comment on above: Performed By: #### L AB239 #### Crew Supervisor: MARION CARMEN ([phone]) [facility]) [address] [place] [address] MCV (RBC) [Entitic vol] 91.2 fL Normal 80.0-98.0 [facility] Comment on above: Performed By: #### L AB239 #### Crew Supervisor: MARION CARMEN ([phone]) [facility]) [address] [place] [address] Monocytes (Bld) [#/Vol] 0.6 10*3/uL Normal 0.0-0.8 [facility] Comment on above: Performed By: #### L [id number] #### Crew Supervisor: MARION CARMEN ([phone]) [facility] [address] [place] [address] [place] Monocytes/100 WBC (Bld) 7.4 % Normal 2.0-10.0 [facility] Comment on above: Performed By: #### L AB239 #### Crew Supervisor: MARION CARMEN ([phone]) [facility] ([facility]) [address] [place] [address] Neutrophils (Bld) [#/Vol] 5.6 10*3/uL Normal 1.8-7.0 [facility] Comment on above: Performed By: #### L [id number] #### Crew Supervisor: MARION CARMEN ([phone]) [facility] ([facility]) [address] [place] [address] Neutrophils/100 WBC (Bld) 67.3 % Normal 40.0-80.0 [facility] Comment on above: Performed By: #### L [id number] #### Crew Supervisor: MARION CARMEN ([phone]) [facility] ([facility]) [address] [place] [address] NRBC (PER 100 WBCS) BY AUTOMATED COUNT 0.1 /100 WBCs Normal 0.0-2.0 [facility] Comment on above: Performed By: #### L [id number] #### Crew Supervisor: MARION CARMEN ([phone]) [facility] ([facility]) [address] [place] [address] Platelet mean volume (Bld) [Entitic vol] 7.8 fL Normal 7.4-12.4 [facility] Comment on above: Performed By: #### L [id number] #### Crew Supervisor: MARION CARMEN ([phone]) [facility] ([facility]) [address] [place] [address] [place] Platelets (Bld) [#/Vol] 210 10*3/uL Normal 140-440 [facility] Comment on above: Performed By: #### L [id number] #### Crew Supervisor: MARION CARMEN ([phone]) [facility] ([facility]) [address] [place] [address] [place] RBC (Bld) [#/Vol] 4.38 10*6/uL Normal 3.8-5.20 [facility] Comment on above: Performed By: #### L [id number] #### Crew Supervisor: MARION CARMEN ([phone]) [facility] ([facility]) [address] [place] [address] WBC (Bld) [#/Vol] 8.4 10*3/uL Normal 3.6-10.7 [facility] Comment on above: Performed By: #### L [id number] #### Crew Supervisor: MARION CARMEN ([phone]) [facility] ([facility]) [address] [place] [address] COMPLETE URINALYSISon 2022 BACTERIA (#/HPF) IN URINE Many Abnormal Negative [facility] Comment on above: Performed By: #### L [id number] ####Crew Supervisor: VLADIMIR GALLARDO ([phone])[facility] ([facility])[address] [place] [address] BILIRUBIN, TOTAL PRESENCE IN URINE Negative Normal Negative [facility] Comment on above: Performed By: #### L [id number] ####Crew Supervisor: VLADIMIR GALLARDO ([phone])[facility] ([facility])[address] [place] [address] Clarity (U) Slightly Cloudy Abnormal Clear [facility] Comment on above: Performed By: #### L [id number] ####Crew Supervisor: VLADIMIR GALLARDO ([phone])[facility] ([facility])[address] [place] [address] Color (U) Yellow Normal Lt. Yellow [facility] Comment on above: Performed By: #### L [id number] ####Crew Supervisor: VLADIMIR GALLARDO ([phone])[facility] ([facility])[address] [place] [address] GLUCOSE (MG/DL) IN URINE Normal Normal Normal (<70 ) [facility] Comment on above: Performed By: #### L [id number] ####Crew Supervisor: VLADIMIR RALPHVAISHNAVI ([phone])[facility]AMPUSA [facility] ([facility])[address] HEMOGLOBIN PRESENCE IN URINE Negative Normal Negative [facility] Comment on above: Performed By: #### L [id number] ####Crew Supervisor: VLADIMIR RALPHVAISHNAVI ([phone])[facility]AMPUSA [facility]UNITED [facility] ([facility])[address] HYALINE CASTS (#/LPF) IN URINE SEDIMENT BY MICROSCOPY 3-5 Abnormal Negative [facility] Comment on above: Performed By: #### L [id number] ####Crew Supervisor: VLADIMIR WADSWORTHCER ([phone])[facility]AMPUSA [place] ([facility])[address] Ketones Ql (U) 80 mg/dL Abnormal Negative [facility] Comment on above: Performed By: #### L [id number] ####Crew Supervisor: VLADIMIR RALPHVAISHNAVI ([phone])[facility] ([facility])[address] LEUKOCYTE ESTERASE PRESENCE IN URINE BY TEST STRIP 500 Soni/uL Abnormal Negative [facility] Comment on above: Performed By: #### L [id number] ####Crew Supervisor: VLADIMIR RALPHVAISHNAVI ([phone])[facility] ([facility])[address] [place] [address] [place] MUCUS (#/LPF) IN URINE SEDIMENT Few Normal Negative [facility] Comment on above: Performed By: #### L [id number] ####Crew Supervisor: VLADIMIR CORDOVAVARUN ([phone])[facility] ([facility])[address] [place] [address] [place] NITRITE PRESENCE IN URINE Negative Normal Negative [facility] Comment on above: Performed By: #### L [id number] ####Crew Supervisor: VLADIMIR RALPHVAISHNAVI ([phone])[facility] ([facility])[address] pH (U) 6.0 [pH] Normal 5.0-8.0 [facility] Comment on above: Performed By: #### L [id number] ####Crew Supervisor: VLADIMIR GALLARDO ([phone])[facility] CAMPUSBill [facility]ILLLOVELACE [facility], ROSWELLCarlitos ([facility])[address] Protein (U) [Mass/Vol] 10 mg/dL Abnormal Negative [facility] Comment on above: Performed By: #### L [id number] ####Crew Supervisor: VLADIMIR GALLARDO ([phone])[facility] CAMPUSBill [facility] ([facility])[address] RBC (#/HPF) IN URINE SEDIMENT 0-2 Normal 0-2 [facility] Comment on above: Performed By: #### L [id number] ####Crew Supervisor: VLADIMIR RALPHVAISHNAVI ([phone])[facility] CAMPUSBill [facility] ([facility])[address] [place] [address] Specific gravity (U) [Rel density] 1.022 Normal 1.005-1.030 [facility] Comment on above: Performed By: #### L [id number] ####Crew Supervisor: VLADIMIR GALLARDO ([phone])[facility] CAMPUSBill [facility] ([facility])[address] SQUAMOUS EPITHELIAL CELLS (#/HPF) IN URINE SEDIMENT 11-25 Abnormal 3-5 [facility] Comment on above: Performed By: #### L [id number] ####Crew Supervisor: VLADIMIR GALLARDO ([phone])[facility] CAMPUSBill [facility] ([facility])[address] [place] [address] [place] UROBILINOGEN (MG/DL) IN URINE Normal Normal Normal (0-1) [facility] Comment on above: Performed By: #### L [id number] ####Crew Supervisor: VLADIMIR GALLARDO ([phone])[facility] CAMPUSA [facility] ([facility])[address] [place] [address] WBC (LEUKOCYTE) (#/HPF) IN URINE SEDIMENT 26-50 Abnormal 0-5 [facility] Comment on above: Performed By: #### L [id number] ####Crew Supervisor: VLADIMIR GALLARDO ([phone])[facility] CAMPUSA [place] ([facility])[address] COMPREHENSIVE METABOLIC PANE Temo 02-27-2023 Albumin [Mass/Vol] 4.0 g/dL Normal 3.5-5.0 [facility] Comment on above: Performed By: #### L AB17, [id number], [id number] ####Crew Supervisor: VLADIMIR GALLARDO ([phone])[facility] CAMPUSA [facility] ([facility])[address] ALP [Catalytic activity/Vol] 58 U/L Normal 38-126 [facility] Comment on above: Performed By: #### Юлия CORONEL17, [id number], [id number] ####Crew Supervisor: VLADIMIR GALLARDO ([phone])[facility] (SBHLAB)[address] ALT [Catalytic activity/Vol] 30 U/L Normal 0-34 [facility] Comment on above: Performed By: #### Юлия CORONEL17, [id number], [id number] ####Crew Supervisor: VLADIMIR GALLARDO ([phone])[facility] (SBHLAB)[address] Anion gap [Moles/Vol] 7 mmol/L Normal 3-13 [facility] Comment on above: Performed By: #### Юлия CORONEL17, [id number], [id number] ####Crew Supervisor: VLADIMIR GALLARDO ([phone])[facility] (SBHLAB)[address] AST [Catalytic activity/Vol] 46 U/L Normal 15-46 [facility] Comment on above: Performed By: #### L AB17, [id number], [id number] ####Crew Supervisor: VLADIMIR GALLARDO ([phone])[facility] (SBHLAB)[address] Bilirubin [Mass/Vol] 0.5 mg/dL Normal 0.2-1.3 [facility] Comment on above: Performed By: #### L AB17, [id number], [id number] ####Crew Supervisor: VLADIMIR GALLARDO ([phone])[facility]USBill [facility]UNITED [facility] (SBHLAB)[address] Calcium [Mass/Vol] 9.0 mg/dL Normal 8.4-10.4 [facility] Comment on above: Performed By: #### L AB17, [id number], [id number] ####Crew Supervisor: VLADIMIR GALLARDO ([phone])[facility] CAMPUSBill [facility]LOVEL[facility] (SBHLAB)[address] Chloride [Moles/Vol] 106 mmol/L Normal 98-107 [facility] Comment on above: Performed By: #### Юлия CORONEL17, [id number], [id number] ####Crew Supervisor: VLADIMIR GALLARDO ([phone])[facility] CAMPUSBill [facility] (SB[facility]AB)[address] CO2 [Moles/Vol] 24 mmol/L Normal 22-30 [facility] Comment on above: Performed By: #### Юлия CORONEL17, [id number], [id number] ####Crew Supervisor: VLADIMIR GALLARDO ([phone])[facility]AMPUSBill [facility] (SBHLAB)[address] Creatinine [Mass/Vol] 0.69 mg/dL Normal 0.52-1.04 [facility] Comment on above: Performed By: #### L AB17, [id number], [id number] ####Crew Supervisor: VLADIMIR GALLARDO ([phone])[facility] (SBHLAB)[address] GLOMERULAR FILTRATION RATE ML/MIN/1.73 SQ M.PREDICTED 87.3 mL/min/1.73m*2 Normal >60.0 [facility] Comment on above: Result Comment: Calc ulation based on the Chronic Kidney Disease Epidemiology Collaboration (CKD-EPI) equation refit without adjustment for race Performed By: #### L AB17, [id number], [id number] ####Crew Supervisor: VLADIMIR GALLARDO ([phone])[facility] (SBHLAB)[address] Glucose [Mass/Vol] 99 mg/dL Normal 70-100 [facility] Comment on above: Performed By: #### Юлия AB17, [id number], [id number] ####Crew Supervisor: VLADIMIR GALLARDO ([phone])[facility] CAMPUSBill HILLZANA (SBHLAB)[address] Potassium [Moles/Vol] 3.7 mmol/L Normal 3.5-5.1 [facility] Comment on above: Performed By: #### Юлия CORONEL17, [id number], [id number] ####Crew Supervisor: VLADIMIR GALLARDO ([phone])[facility] CAMPUSBill ELLISCarlitos (SBHLAB)[address] Protein [Mass/Vol] 7.1 g/dL Normal 6.3-8.2 [facility] Comment on above: Performed By: #### Юлия CORONEL17, [id number], [id number] ####Crew Supervisor: VLADIMIR GALLARDO ([phone])[facility] CAMPUSBill ELLISCarlitos (SBHLAB)[address] [place] [address] [place] Sodium [Moles/Vol] 137 mmol/L Normal 135-145 [facility] Comment on above: Performed By: #### Юлия AB17, [id number], [id number] ####Crew Supervisor: VLADIMIR GALLARDO ([phone])[facility] CAMPUSBill HILLZANA (SBHLAB)[address] [place] [address] [place] Urea nitrogen [Mass/Vol] 19 mg/dL High 7-17 [facility] Comment on above: Performed By: #### L AB17, [id number], [id number] ####Crew Supervisor: VLADIMIR GALLARDO ([phone])[facility] CAMPUSBill ELLISCarlitos (SBHLAB)[address] HEAD WO IV CONTRASTon CT HEAD WO IV CONTRAST Patient Name: ALBINA GARCIA DOB: 1940 Exam Date/Time: 02/27/2023 20:28 Procedure: CT HEAD WO IV CONTRAST Ordering Provider: VELASQUEZ JAY Reason For Exam: headache, confusion CT HEAD: Clinical Indication: 82-year-old; headache and confusion Imaging Technique: Multiple axial 3mm CT images of the head were obtained from the skull base to the vertex. Coronal and sagittal reconstructs were rendered. Dose reduction was employed with automated exposure control. Comparison: 02/05/2023 FINDINGS: There is no intracranial hemorrhage. There is no extra-axial fluid collection. Global volume loss is present with periventricular and subcortical areas of low attenuation statistically representing small vessel ischemia. The calvarium is intact. The globes are symmetric. The mastoid air cells are pneumatized. The paranasal sinuses are pneumatized. The patient's head was placed rotated on the CT gantry and this does limit overall evaluation. IMPRESSION: No acute intracranial process. Global volume loss with small vessel ischemia. Report Dictated on Electronically Signed By: Abi Cespedes MD Electronically Signed Date/Time: 02/27/2023 8:36 PM EST increased lethargy, per family pt has been sleeping for 20 plus hours a day. Pt only complains of nausea with no vomiting and a headache. Pt is only alert and oriented x1, does have a recent dx of early dementia Normal [facility] CT Head WO contraston 2022 No acute intracranial process. Global volume loss with small vessel ischemia. Report Dictated on Electronically Signed By: Abi Cespedes MD Electronically Signed Date/Time: 02/27/2023 8:36 PM EST [facility] Patient Name: ALBINA BROWN : 1940 Exam Date/Time: 02/27/2023 20:28 Procedure: CT HEAD WO IV CONTRAST Ordering Provider: VELASQUEZ JAY Reason For Exam: headache, confusion CT HEAD: Clinical Indication: 82-year-old; headache and confusion Imaging Technique: Multiple axial 3mm CT images of the head were obtained from the skull base to the vertex. Coronal and sagittal reconstructs were rendered. Dose reduction was employed with automated exposure control. Comparison: 02/05/2023 FINDINGS: There is no intracranial hemorrhage. There is no extra-axial fluid collection. Global volume loss is present with periventricular and subcortical areas of low attenuation statistically representing small vessel ischemia. The calvarium is intact. The globes are symmetric. The mastoid air cells are pneumatized. The paranasal sinuses are pneumatized. The patient's head was placed rotated on the CT gantry and this does limit overall evaluation. [facility] Abi Cespedes MD - 02/27/2023 Patient Name: ALBINA BROWN : 1940 Exam Date/Time: 02/27/2023 20:28 Procedure: CT HEAD WO IV CONTRAST Ordering Provider: VELASQUEZ JAY Reason For Exam: headache, confusion CT HEAD: Clinical Indication: 82-year-old; headache and confusion Imaging Technique: Multiple axial 3mm CT images of the head were obtained from the skull base to the vertex. Coronal and sagittal reconstructs were rendered. Dose reduction was employed with automated exposure control. Comparison: 02/05/2023 FINDINGS: There is no intracranial hemorrhage. There is no extra-axial fluid collection. Global volume loss is present with periventricular and subcortical areas of low attenuation statistically representing small vessel ischemia. The calvarium is intact. The globes are symmetric. The mastoid air cells are pneumatized. The paranasal sinuses are pneumatized. The patient's head was placed rotated on the CT gantry and this does limit overall evaluation. IMPRESSION: No acute intracranial process. Global volume loss with small vessel ischemia. Report Dictated on Electronically Signed By: Abi Cespedes MD Electronically Signed Date/Time: 02/27/2023 8:36 PM EST [facility] Radiology Study observation (narrative) [facility] metabolic 1998 panelon 02-27-2023 Albumin [Mass/Vol] 4.0 g/dL 3.5 - 5.0 g/dL [facility] ALP [Catalytic activity/Vol] 58 U/L 38 - 126 U/L [facility] ALT [Catalytic activity/Vol] 30 U/L 0 - 34 U/L [facility] Anion gap [Moles/Vol] 7 mmol/L 3 - 13 mmol/L [facility] AST [Catalytic activity/Vol] 46 U/L 15 - 46 U/L [facility] Bilirubin [Mass/Vol] 0.5 mg/dL 0.2 - 1 .3 mg/dL [facility] Calcium [Mass/Vol] 9.0 mg/dL 8.4 - 10. 4 mg/dL [facility] Chloride [Moles/Vol] 106 mmol/L 98 - 10 7 mmol/L [facility] CO2 [Moles/Vol] 24 mmol/L 22 - 30 mmol/L [facility] Creatinine [Mass/Vol] 0.69 mg/dL 0.52 - 1.04 mg/dL [facility] GFR/1.73 sq M.predicted MDRD (S/P/Bld) [Vol rate/Area] 87.3 mL/min/{1.73_m2} - PINF [facility] Comment on above: Calculation based on the Chronic Kidney Disease Epidemiology Collaboration (CKD-EPI) equation refit without adjustment for race Glucose [Mass/Vol] 99 mg/dL 70 - 100 mg/dL [facility] Interpretation and review of laboratory results Abnormal [facility] th Potassium [Moles/Vol] 3.7 mmol/L 3.5 - 5.1 mmol/L [facility] Protein [Mass/Vol] 7.1 g/dL 6.3 - 8.2 g/dL [facility] Sodium [Moles/Vol] 137 mmol/L 135 - 145 mmol/L [facility] Urea nitrogen [Mass/Vol] 19 mg/dL High 7 - 17 mg/d L [facility] ED Nursing Noteon 02-27-2023 ED Nursing Note Guided family back MILLI Christian 02/27/232005 [facility] ED Nursing Note Introduced myself as pt liaison explained role and provided support to daughter and family in lobby , pt arrived via EMS. MILLI Christian 02/27/231955 [facility] ED Nursing Note Bed: 12 Expected date: 02/27/23 Expected time: Means of arrival: Comments: EMS Radha Vazquez 02/27/231949 [facility] ED Nursing Note Pt came in today by EMS from home for increased lethargy, per family pt has been sleeping for 20 plus hours a day for 2 weeks. Pt is only alert and oriented x1, does have a hx of early dementia. Pt only complaints is a headache and nausea. Family at bedside at this time. Was recently here for a UTI. Family concerned for UTI again due to lack of water intake. Normal [facility] ED Provider Noteon ED Provider Note EMERGENCY DEPARTMENT ENCOUNTER Pt Name: Albina Brown Birthdate 1940 Date of evaluation: 02/27/2023 ED Provider: Humphrey Velasquez MD CHIEF COMPLAINT Chief Complaint Patient presents with Nausea Altered Mental Status Lethargy Pt brought in by [facility] from home for increased lethargy, per family pt has been sleeping for 20 plus hours a day. Pt only complains of nausea with no vomiting and a headache. 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 HISTORY OF PRESENT ILLNESS I wore appropriate PPE for the entirety of this encounter. HPI Albina Brown is a 82 y.o. person who presents to the emergency department with concern for increased lethargy. Patient is coming from home who reports that she lives with family members although family member state that she lives by herself and is not taking care of herself. States that she has been sleeping for 20+ hours daily although did lose her a month ago. Was seen in the hospital and admitted at the time and diagnosed with rapid onset dementia. Family reports that they have to force her to drink fluids and has not had any p.o. intake in the last 2 days. She refuses her physical therapy and even her home health nursing. Patient is alert to her self and denies any other complaints aside from a slight headache that started while she arrived Nursing Notes were reviewed. Limitations to history: Patient mental status Outside historians: Family members REVIEW OF SYSTEMS Review of Systems Constitutional: Positive for activity change, appetite change and fatigue. Neurological: Positive for headaches. Psychiatric/Behavior al: Positive for confusion. PAST MEDICAL HISTORY Past Medical History: Diagnosis Date Acid reflux Anxiety Breast cancer (HCC) Hyperlipidemia SURGICAL HISTORY Past Surgical History: Procedure Laterality Date BREAST BIOPSY BREAST LUMPECTOMY 11/21/2019 CATARACT EXTRACTION COLONOSCOPY TUBAL LIGATION WISDOM TOOTH EXTRACTION CURRENT MEDICATIONS Previous Medications ASPIRIN 81 MG CHEWABLE TABLET Chew 81 mg in the morning. CITALOPRAM (CELEXA) 20 MG TABLET CITALOPRAM (CELEXA) 20 MG TABLET Take 1 tablet (20 mg) by mouth daily. Do not start before February 18, 2023. TAMOXIFEN (NOLVADEX) 20 MG TABLET Take 1 tablet (20 mg total) by mouth daily. ALLERGIES Patient has no known allergies. FAMILY HISTORY No family history on file. SOCIAL HISTORY Social History Socioeconomic History Marital status: Tobacco Use Smoking status: Never Smokeless tobacco: Never SCREENINGS PHYSICAL EXAM ED Triage Vitals [02/27/231954] Temp Heart Rate Resp BP 37 ?C (98.6 ?F) 65 17 (!) 174/69 SpO2 Temp Source Heart Rate Source Patient Position 98 % Oral -- Sitting BP Location FiO2 (%) Left arm -- Physical Exam Vitals and nursing note reviewed. Constitutional: General: She is not in acute distress. Appearance: She is well-developed. HENT: Head: Normocephalic and atraumatic. Eyes: Conjunctiva/sclera: Conjunctivae normal. Cardiovascular: Rate and Rhythm: Normal rate and regular rhythm. Heart sounds: No murmur heard. Pulmonary: Effort: Pulmonary effort is normal. No respiratory distress. Breath sounds: Normal breath sounds. Abdominal: Palpations: Abdomen is soft. Tenderness: There is no abdominal tenderness. Musculoskeletal: General: No swelling. Cervical back: Neck supple. Skin: General: Skin is warm and dry. Capillary Refill: Capillary refill takes less than 2 seconds. Neurological: Mental Status: She is alert. Psychiatric: Mood and Affect: Mood normal. DIAGNOSTIC RESULTS RADIOLOGY (Per Emergency Physician): Interpretation per the Radiologist below, if available at the time of this note: CT head wo IV contrast Final Result No acute intracranial process. Global volume loss with small vessel ischemia. Report Dictated on Electronically Signed By: Abi Cespedes MD Electronically Signed Date/Time: 02/27/2023 8:36 PM EST XR chest 1 view Final Result 1. Large hiatal hernia. 2. No confluent consolidation. Report Dictated on Electronically Signed By: Abi Cespedes MD Electronically Signed Date/Time: 02/27/2023 8:13 PM EST EKG Interpretation: LABS: Labs Reviewed CBC WITH AUTO DIFFERENTIAL - Abnormal Result Value Auto WBC 8.4 RBC 4.38 Hemoglobin 13.2 Hematocrit 40.0 MCV 91.2 MCH 30.1 MCHC 33.1 RDW 13.2 Platelets 210 MPV 7.8 nRBC 0.1 Neutrophils Relative 67.3 Lymphocytes Relative 24.0 Monocytes Relative 7.4 Eosinophils Relative 0.8 (*) Basophils Relative 0.5 Neutrophils Absolute 5.6 Lymphocytes Absolute 2.0 Monocytes Absolute 0.6 Eosinophils Absolute 0.1 Basophils Absolute 0.0 COMPREHENSIVE METABOLIC PANEL - Abnormal SODIUM 137 POTASSIUM 3.7 CHLORIDE 106 CARBON DIOXIDE 24 ANION GAP 7 UREA NI (more content not included)... Normal [facility] Laboratory - Chemistry and C hemistry - challengeon 02-27-2023 TSH Qn 1.803 m[IU]/L [facility] Troponin I.cardiac [Mass/Vol] ng/mL NINF - 0.034 ng/mL [facility] THYROID STIMULATING HORMONEo n 02-27-2023 THYROID STIMULATING HORMONE 1.803 uIU/mL Normal 0.465-4.680 [facility] Comment on above: Performed By: #### L AB17, [id number], [id number] ####Crew Supervisor: VLADIMIR OCRDOVAVAISHNAVI ([phone])[facility] ([facility])[address] [place] [address] TROPONIN, WITH SERIAL REFLEX on 02-27-2023 Troponin I.cardiac [Mass/Vol] ng/mL Normal <0.034 [facility] Comment on above: Result Comment: SAYRA Spencer COMMENTS: Patients with high levels of Biotin oral intake (ie >5 mg/day) may have falsely decreased Troponin levels. Performed By: #### L AB17, [id number], [id number] ####Crew Supervisor: VLADIMIR CORDOVAVAISHNAVI ([phone])[facility] [place] [address] TSH Qnon 02-27-2023 Interpretation and review of laboratory results Normal [facility] Troponin I.cardiac [Mass/Vol ]on 02-27-2023 Interpretation and review of laboratory results Normal [facility] Patients with high levels of Biotin oral intake (ie >5 mg/day) may have falsely decreased Troponin levels. [facility] URINE CULTUREon 02-27-2023 Bacteria identified Cx Nom (U) URINE CULTURE Reference Normal urogenital sonal present [ S = SUSCEPTIBLE R = RESISTANT I = INTERMEDIATE S-DD = Susceptible-dose dependent NS = Non-susceptible NO = No Interpretation ] Normal [facility] Comment on above: Performed By: #### L [id number] #### Crew Supervisor: MARION CARMEN ([phone]) [facility] ([facility] [address] [place] [place] [address] Urinalysis complete panel (U )Ordered By: Aurora Mcelroy on 02-27-2023 Bacteria LM.HPF (Urine sed) [#/Area] Many Abnormal Negative /HPF [facility] Bilirubin Ql (U) Negative Negative mg/dL [facility] Clarity (U) Slightly Cloudy Abnormal Clear [facility] alth Color (U) Yellow Lt. Yellow [facility] Epithelial cells.squamous LM.HPF (Urine sed) [#/Area] 11-25 Abnormal [facility] Glucose Ql (U) Normal Normal (<70) mg/dL [facility] Hemoglobin Ql (U) Negative Negative mg/dL [facility] Hyaline casts Auto (Urine sed) [#/Area] 3-5 Abnormal Negative /LPF [facility] Interpretation and review of laboratory results Abnormal [facility] Ketones (U) [Mass/Vol] 80 mg/dL Abnormal Negative [facility] Leukocyte esterase Test strip Ql (U) 500 Abnormal Negative Soni/uL [facility] Mucus LM.HPF (Urine sed) [#/Area] Few Negative /LPF [facility] Nitrite Ql (U) Negative Negative [facility] pH (U) 6.0 [pH] 5.0 - 8.0 pH [facility] Protein (U) [Mass/Vol] 10 mg/dL Abnormal Negative [facility] RBC LM.HPF (Urine sed) [#/Area] 0-2 [facility] Specific gravity (U) [Rel density] 1.022 1.005 - 1.030 [facility] Urobilinogen (U) [Mass/Vol] Normal Normal (0-1) mg/dL [facility] WBC LM.HPF (Urine sed) [#/Area] 26-50 Abnormal [facility] XR Chest Single viewon 02-27 1. Large hiatal hernia. 2. No confluent consolidation. Report Dictated on Electronically Signed By: Abi Cespedes MD Electronically Signed Date/Time: 02/27/2023 8:13 PM [facility] Patient Name: ALBINA BROWN : 1940 Exam Date/Time: 02/27/2023 20:11 Procedure: XR CHEST 1 VIEW Ordering Provider: VELASQUEZ JAY Reason For Exam: ALTERED MENTAL STATUS INDICATION: 82-year-old; altered mental status. VIEWS: Chest portable AP upright-1 image COMPARISON: None. FINDINGS: Cardiac monitoring wires and leads are present. The patient is rotated which limits overall evaluation. The cardiac silhouette is within normal limits. There is a large hiatal hernia at the midline. There is no confluent consolidation. [facility] Abi Cespedes MD - 02/27/2023 Patient Name: ALBINA BROWN : 1940 Exam Date/Time: 02/27/2023 20:11 Procedure: XR CHEST 1 VIEW Ordering Provider: VELASQUEZ JAY Reason For Exam: ALTERED MENTAL STATUS INDICATION: 82-year-old; altered mental status. VIEWS: Chest portable AP upright-1 image COMPARISON: None. FINDINGS: Cardiac monitoring wires and leads are present. The patient is rotated which limits overall evaluation. The cardiac silhouette is within normal limits. There is a large hiatal hernia at the midline. There is no confluent consolidation. IMPRESSION: 1. Large hiatal hernia. 2. No confluent consolidation. Report Dictated on Electronically Signed By: Abi Cespedes MD Electronically Signed Date/Time: 02/27/2023 8:13 PM [facility] Radiology Study observation (narrative) [facility] XR Chest Single viewOrdered By: Abi Cespedes on 02-27-2023 [facility] Work Phone: CNPNon 02-20-2023 [facility] Telephone (FPDOYL) ALBINA BROWN ([id number]) 1940 F Date Time Provider Department 02/20/23 MADYSON COLLINS During your visit today, we recorded the following information about you: Albania Perez 02/20/2023 9:56 AM Signed [facility] nurse Mary called in to give a Pt update. Pt fell today. The caregiver was there and was concerned about her falling again once she would be leaving. No injuries were reported but the nurse wanted to update regarding the fall. Allergies As of Date: 02/20/2023 (No Known Allergies) Date Reviewed: 12/12/2022 Reviewed by: Kailyn Mead LPN - Fully Assessed Reason for Visit: Patient Update [1234] Prescriptions as of 02/20/2023 - memantine XR (NAMENDA XR) 21 mg CSpX Take 1 capsule by mouth once daily. - tolterodine ER (DETROL LA) 2 mg 24 hr capsule Take 1 capsule by mouth once daily. - omeprazole (PRILOSEC) 20 mg capsule TAKE 1 CAPSULE BY MOUTH ONCE DAILY - citalopram (CELEXA) 40 mg tablet TAKE 1 TABLET BY MOUTH EVERY DAY - omeprazole (PRILOSEC) 20 mg capsule - donepezil (ARICEPT) 10 mg tablet Take 1 tablet by mouth daily at bedtime. - donepezil (ARICEPT) 23 mg tablet Take 1 tablet by mouth daily at bedtime. - donepezil (ARICEPT) 5 mg tablet Take 1 tablet by mouth daily at bedtime. - meclizine (ANTIVERT) 25 mg tab Take 1 tablet by mouth three times daily as needed. - multivitamin (MULTIPLE VITAMINS ORAL) Take 1 tablet by mouth once daily. (CENTRUM SILVER ADULT 50+ PO) - ascorbic acid, vitamin C, (VITAMIN C) 500 mg tablet Take 500 mg by mouth. - aspirin 81 mg chewable tablet Take 81 mg by mouth. - Cholecalciferol, Vitamin D3, 25 mcg (1,000 unit) cap Take 1 capsule by mouth. - simvastatin (ZOCOR) 20 mg tablet Take 20 mg by mouth daily at bedtime. - tamoxifen (NOLVADEX) 20 mg tablet Take 20 mg by mouth once daily. - ZINC ACETATE ORAL Take 50 mg by mouth once daily. - vitamin B complex (B COMPLEX-VITAMIN B12 ORAL) Take 1,000 mg by mouth once daily. Meds Comments as of 07/05/2021: 07/05/21 Patient did not bring a list, states all medications are the same. Problem List As Of Date 02/20/2023 Noted Resolved Hyperlipidemia, mixed [E78.2] 11/29/2020 Screening for thyroid disorder [Z13.29] 11/29/2020 GERD without esophagitis [K21.9] 11/29/2020 Nausea [R11.0] 11/29/2020 Anxiety with depression [F41.8] 11/29/2020 Malignant neoplasm of lower-outer quadrant of l*12/15/2019 Abnormal mammogram [R92.8] 01/15/2022 Dementia without behavioral disturbance (HCC) [*01/15/2022 Age-related cognitive decline [R41.81] 12/16/2022 Varicose veins of bilateral lower extremities w*12/16/2022 Female stress incontinence [N39.3] 12/16/2022 Encounter Status:Closed by ALBANIA P[facility]Z [facility] Patient Choice Patient Name: ALBINA BROWN Date of : 1940 [facility] CARECOORDon 02-10-2023 [facility] Next Site of Care Admission Date: 02/04/2023 01:38 AM Patient Name: ALBINA BROWN Location: [address] [id number] Date of : 1940 Placement Information Referral Type:Mcc/SNF - New Referral ID:[id number] Provider Name: Address 1: Phone Number: Address 2: Fax Number: City: Selection Factors: State: Referral Type:Home Health Care Services - New Referral ID:[id number] Provider Name:[facility] Address 1:[address] [place] [address] Address 2: City:[place] Selection Factors:Patient/Fami ly Choice State:[place] Normal [facility] Progress Noteon 02-10-2023 Progress Note Discharged to home, via w/c, to the car Normal [facility] Progress Note Discharge instructions given. Daughter in law verbalized understanding Normal [facility] Progress Note PHYSICAL THERAPY [facility] Treatment Note Name/MRN: Albina Brown ([id number]) Date of : 1940 Age: 82 y.o. Room[facility]Bed: [facility] A Visit #: 2 out of 5 visits Discharge Recommendation: Home with Home PT, Home with 24/7 Assist, Continue to assess pending progress, and if 24 hour assist is not available patient may require SNF due to significant safety concerns Equipment Needed: TBD with further treatment as patient does not currently own medical equipment Prior Level of Function ADL Assistance: Independent Ambulation Assistance: Independent Device(s) used: none Transfer Assistance: Independent Assessment Pt presents with increased functional mobility. Pt is mod I for transfers, SUP for ambulation without a device and CGA for stair training. Pt demonstrates slight decrease in balance but requires no physical assistance to correct. Extended time and limited by cognition. PT still recs HH at discharge. Subjective Pt is agreeable to therapy. Observation: Per RN okay to see. Pt in recliner chair pre/post session with alarm donned. Pain: Pt denies any current pain. Medical Precautions: No active isolations Proper PPE donned/doffed in accordance with facility standards. Fall Risk: Jim Fall Risk Score: 85 (High Risk) Precautions/Restrict ions: N/A Overall Cognitive Status: Exceptions Family/Caregiver Present: none Objective Ambulation Ambulation 1 Assistive device(s) used: none Assist level: Supervision Distance (ft): 250ft x 1 Quality of gait: demonstrates a reciprocal gait pattern, proper step height and length, lateral swaying, slight unsteadiness but no LOB noted Transfers/Mobility Sit to stand: Modified Independent Stand to sit: Modified Independent Pt able to demonstrate proper hand placement. Demonstrates good eccentric control. Device(s) used: none Stairs Stairs 1 Assistive device(s) used: none Assist level: Contact Guard # of steps: 4 Rails: right Additional factors: non-reciprocal going up, non-reciprocal going down, demonstrates a step to pattern, decreased step height and length, unsteadiness. CGA to complete but no LOB with assist to correct\\ Plan Continue acute PT per plan of care. Safety/Education Safety Safety Devices in place: All fall risk precautions in place, call light within reach, left in chair, chair alarm in place, gait belt, patient at risk for falls, and nurse notified Restraints: No Education Education Given To: patient Education Provided: PT Role, PT Goals, Gait Training, Plan of Care, and Transfer Training Education Method: Verbal and Demonstration Barriers to Learning: Cognition Education Outcome: Continued Education Needed Outcome Measures AM-PAC AM-PAC Inpatient Mobility Raw Score : 22 AM-PAC Inpatient Mobility Raw Score (No Stairs) : 19 Goals Patient Stated Goal: Patient states she wants to get home. Encounter Problems Encounter Problems (Active) Balance Patient will maintain dynamic standing balance for 5 minutes with modified independence in order to demonstrate decreased risk of falling. (Progressing) Start: 02/05/23 Expected End: 02/12/23 Exercise Patient will complete lower extremity exercises for 1-2 sets / 10 reps in order to improve strength and activity tolerance for mobility. (Not Addressed) Start: 02/05/23 Expected End: 02/12/23 Mobility Patient will ambulate 100 feet with modified independence and least restrictive device in order to improve safety and independence with mobility. (Progressing) Start: 02/05/23 Expected End: 02/12/23 Patient will ascend and descend 5 stairs with one railing and modified independence in order to safely negotiate home. (Progressing) Start: 02/05/23 Expected End: 02/12/23 Pain - Adult Transfers Patient will perform bed mobility with modified independence in order to improve independence and prepare for out of bed mobility. (Not Addressed) Start: 02/05/23 Expected End: 02/12/23 Patient will complete functional transfers with least restrictive device with modified independence in order to prepare for ambulation. (Completed) Start: 02/05/23 Expected End: 02/12/23 Resolved: 02/10/23 Therapy Time Individual Co-treatment Time In 1309 Time Out 1317 Minutes 8 Timed Code Treatment Minutes: 8 Minutes (1 gait) Marisabel Suarez [facility] Progress Note Called daughter in law renetta [phone] and informed her the patient is discharged. Renetta says she works until 1700 so will be to pick her up between [id number] [facility] Progress Note OCCUPATIONAL THERAPY [facility] Treatment Note Name/MRN: Albina Brown ([id number]) Date of : 1940 Age: 82 y.o. Room/Bed: B1-151/B1-151 A Visit #: 3 out of 5 visits Discharge Recommendation: Home with Home OT, Home with 24/7 Assist, and if 24 hr SUP not available, would benefit from SNF for safety. Equipment Needed: none Prior Level of Function ADL Assistance: Independent Ambulation Assistance: Independent Transfer Assistance: Independent Assessment Pt seen this date for OT treatment focusing on bathroom level toileting and functional transfers / mobility at this time. She continues to require occasional cueing for safety this date, but was able to complete bathroom level toileting and hand hygiene with SBA overall for safety. Pt initially CGA progressing to SBA for mobility this date. Mild instability noted with no true LOB. She would continue to benefit from skilled OT services to address the below. Recommend planned discharge for [facility] OT with 24/ supervision. Subjective Pleasant and cooperative. OK to see per RN Pain: Pt denies any current pain. Medical Precautions: No active isolations Proper PPE donned/doffed in accordance with facility standards. Fall Risk: Jim Fall Risk Score: 100 (High Risk) Precautions/Restrict ions: N/A Family/Caregiver Present: none Objective ADLs Toileting: SBA Pt able to complete bathroom level toileting with increased time this date. No physical assist required for pants management or pericare at this time. Increased reliance on grab bars for stability. She was able to complete hand hygiene at sink level with SBA overall and good use of appropriate environmental supports for stability. No true LOB or c/o fatigue this date. Bed Mobility Supine to sit: Modified Independent Sit to supine: Modified Independent Scooting: Modified Independent Use of bed rails and MOD I. No physical assist required to complete. Denies dizziness with positional changes. Transfers/Mobility Sit to stand: Contact Guard Stand to sit: SBA Toilet: SBA Sitting balance: Modified Independent Standing balance: SBA Functional mobility: SBA Pt completed sit<>stands x2 this date from EOB and from toilet. Denies dizziness with positional changes. No use of AE this date. Good hand placement for push up from / reach back for seated surfaces. Use of grab bar with completion of toilet transfers. No true LOB noted at this time. Pt completed mobility in room to / from bathroom and functional home distances in hallway progressing from CGA to SBA overall. Device(s) used: none Plan Continue acute OT per plan of care. Safety/Education Safety Safety Devices in place: All fall risk precautions in place, call light within reach, left in bed, gait belt, patient at risk for falls, nurse notified, and no alarms engaged upon entry Restraints: No Education Education Given To: patient Education Provided: Plan of Care, ADL Adaptive Strategies, Transfer Training, Equipment, and Fall Prevention Education Education Method: Verbal and Demonstration Barriers to Learning: Cognition Education Outcome: Verbalized Understanding, Demonstrated Understanding, and Continued Education Needed AM-PAC AM-PAC Inpatient Daily Activity Raw Score: 20 ADL Inpatient CMS G-Code Modifier: CJ Goals Patient Stated Goal: none stated at this time. Encounter Problems Encounter Problems (Active) Dressings Lower Extremities Patient will dress lower body MOD I (Initiated) Start: 02/05/23 Expected End: 02/12/23 Mobility Patient will demonstrate functional mobility with MOD I and LRD (Progressing) Start: 02/05/23 Expected End: 02/12/23 Toileting Patient will complete toileting tasks at standard toilet with modified independence. (Progressing) Start: 02/05/23 Expected End: 02/12/23 Transfers Patient will complete functional transfer with least restrictive device with modified independence in order to prepare for ambulation. (Progressing) Start: 02/05/23 Expected End: 02/12/23 Therapy Time Individual Co-treatment Time In 0904 Time Out 0916 Minutes 12 Timed Code Treatment Minutes: 12 Minutes (ADL) Chencho Naik, MACIEJ Normal [facility] Progress Noteon 02-09-2023 Progress Note OCCUPATIONAL THERAPY [facility] Treatment Note Name/MRN: Albina Brown ([id number]) Date of : 1940 Age: 82 y.o. Room/Bed: B1-151/B1-151 A Visit #: 2 out of 5 visits Discharge Recommendation: Home with Home OT, Home with 24/7 Assist, and if 24 hr SUP not available, would benefit from SNF for safety. Equipment Needed: none Prior Level of Function ADL Assistance: Independent Ambulation Assistance: Independent Transfer Assistance: Independent Assessment Pt tolerated session fairly well, limited by decreased cognition. Pt completed bed mobility at mod I. Pt completed seated UB bathing and dressing with SBA and VC, standing LB dressing and bathing with CGA. Pt completed STS with CGA without device. Pt required VC for sequencing and safety. Pt is recommended for [facility] OT and 24/7 assist, but if not available would benefit from placement for safety. Subjective Pt supine in bed, agreeable to OT tx. Per RN, pt okay to see Pain: Pt denies any current pain. Medical Precautions: No active isolations Proper PPE donned/doffed in accordance with facility standards. Fall Risk: Jim Fall Risk Score: 100 (High Risk) Precautions/Restrict ions: N/A Family/Caregiver Present: none Objective ADLs UE Bathing: SBA LE Bathing: Contact Guard UE Dressing: SBA LE Dressing: Contact Guard Pt completed seated UB dressing and bathing while seated EOB with SBA. Pt required VC for sequencing, pt attempting to wash armpits through t-shirt. Pt completed LB bathing in standing with unilateral UE support on bed rails and CGA for balance. Pt completed LB dressing with increased time and CGA. Pt with lateral LoB in sitting when completing sock and pants threading, required CGA to sit upright Bed Mobility Supine to sit: Modified Independent Sit to supine: Modified Independent Scooting: Modified Independent Pt completed all aspects of bed mobility with use of bed rails at Mod I. Pt required no hands on assist to complete Transfers/Mobility Sit to stand: Contact Guard Stand to sit: Contact Guard, Pt completed x4 STS from EOB without device and CGA. Pt had no overt LoB but required increased time to gain static standing balance. Sitting balance: Modified Independent Standing balance: Contact Guard Pt stood for ~2-3 mins x2 for standing LB ADLs. Pt required CGA for standing balance with unilateral UE support on bed rail. Pt with not overt LoB. Pt declining functional mobility at this time. Device(s) used: hospital bed Cognition - Impaired. Therapist asked pt Who do you live with?" Pt responded that she lives with her dad and step mom. Upon therapist asking follow up questions, pt reports they are and that she isn't sure who she lives with. Pt required VC for sequencing and safety at times. Plan Continue acute OT per plan of care. Safety/Education Safety Safety Devices in place: All fall risk precautions in place, call light within reach, left in bed, gait belt, patient at risk for falls, nurse notified, and no alarms engaged upon entry Restraints: No Education Education Given To: patient Education Provided: OT Role, Plan of Care, Precautions, ADL Adaptive Strategies, Transfer Training, Equipment, Fall Prevention Education, and Discharge Recommendations Education Method: Verbal, Demonstration, and Teach Back Barriers to Learning: Cognition Education Outcome: Verbalized Understanding, Demonstrated Understanding, and Continued Education Needed AM-PAC AM-PAC Inpatient Daily Activity Raw Score: 20 ADL Inpatient CMS G-Code Modifier: CJ Goals Patient Stated Goal: none stated at this time. Encounter Problems Encounter Problems (Active) Dressings Lower Extremities Patient will dress lower body MOD I (Progressing) Start: 02/05/23 Expected End: 02/12/23 Mobility Patient will demonstrate functional mobility with MOD I and LRD (Not Addressed) Start: 02/05/23 Expected End: 02/12/23 Toileting Patient will complete toileting tasks at standard toilet with modified independence. (Not Addressed) Start: 02/05/23 Expected End: 02/12/23 Transfers Patient will complete functional transfer with least restrictive device with modified independence in order to prepare for ambulation. (Progressing) Start: 02/05/23 Expected End: 02/12/23 Therapy Time Individual Co-treatment Time In 1030 Time Out 1048 Minutes 18 Timed Code Treatment Minutes: 18 Minutes (1 ADL) CADE Mccrary [facility] CARECOORDon 02-08-2023 [place] Reviewed careport and continue to await auth for [facility]. Will update attending and primary care nurse if received over the weekend and patient able to discharge..Ciara cameron signed by Albina Means RN on 02/08/2023 at 6:50 AM [facility] IDNon 02-08-2023 IDN Problem: Pain - Adult Goal: Verbalizes/displays adequate comfort level or baseline comfort level Outcome: Progressing Problem: Safety - Adult Goal: Free from fall injury Outcome: Progressing Problem: Discharge Planning Goal: Discharge to home or other facility with appropriate resources Outcome: Progressing Problem: Chronic Conditions and Co-morbidities Goal: Patient's chronic conditions and co-morbidity symptoms are monitored and maintained or improved Outcome: Progressing Problem: Skin/Tissue Integrity - Adult Goal: Skin integrity remains intact Outcome: Progressing Goal: Incisions, wounds, or drain sites healing without S/S of infection Outcome: Progressing Goal: Oral mucous membranes remain intact Outcome: Progressing Problem: Musculoskeletal - Adult Goal: Return mobility to safest level of function Outcome: Progressing Goal: Maintain proper alignment of affected body part Outcome: Progressing Goal: Return ADL status to a safe level of function Outcome: Progressing Normal [facility] CARECOORDon 02-07-2023 [place] Reviewed chart and continue to await auth for [facility]. Will update attending and primary care nurse if received over the weekend and patient able to discharge. . Normal [facility] IDNon 02-07-2023 IDN Problem: Pain - Adult Goal: Verbalizes/displays adequate comfort level or baseline comfort level Outcome: Progressing Problem: Safety - Adult Goal: Free from fall injury Outcome: Progressing Problem: Discharge Planning Goal: Discharge to home or other facility with appropriate resources Outcome: Progressing Normal [facility] IDN Problem: Pain - Adult Goal: Verbalizes/displays adequate comfort level or baseline comfort level Outcome: Progressing Problem: Safety - Adult Goal: Free from fall injury Outcome: Progressing Problem: Discharge Planning Goal: Discharge to home or other facility with appropriate resources Outcome: Progressing Problem: Chronic Conditions and Co-morbidities Goal: Patient's chronic conditions and co-morbidity symptoms are monitored and maintained or improved Outcome: Progressing Problem: Skin/Tissue Integrity - Adult Goal: Skin integrity remains intact Outcome: Progressing Goal: Incisions, wounds, or drain sites healing without S/S of infection Outcome: Progressing Goal: Oral mucous membranes remain intact Outcome: Progressing Problem: Musculoskeletal - Adult Goal: Return mobility to safest level of function Outcome: Progressing Goal: Maintain proper alignment of affected body part Outcome: Progressing Goal: Return ADL status to a safe level of function Outcome: Progressing Normal [facility] Progress Noteon 02-07-2023 Progress Note Pt removed IV, IMS aware and stated okay to leave out. Normal [facility] CBC W Auto Differential pane l (Bld)on 02-06-2023 Basophils (Bld) [#/Vol] 0.1 10*3/uL 0.0 - 0.2 10*3/uL [facility] Basophils/100 WBC (Bld) 1.1 % 0.0 - 2.0 % [facility] Eosinophils (Bld) [#/Vol] 0.2 10*3/uL 0. 0 - 0.5 10*3/uL [facility] Eosinophils/100 WBC (Bld) 3.1 % 1.0 - 6.0 % [facility] Erythrocyte distribution width (RBC) [Ratio] 13.3 % 11.5 - 14.5 % [facility] Hematocrit (Bld) [Volume fraction] 30.5 % Low 35.0 - 47.0 % [facility] Hemoglobin (Bld) [Mass/Vol] 10.1 g/dL Low 11.7 - 16.0 g/dL [facility] Interpretation and review of laboratory results Abnormal [facility] th Lymphocytes (Bld) [#/Vol] 2.6 10*3/uL 1. 0 - 4.3 10*3/uL [facility] Lymphocytes/100 WBC (Bld) 39.5 % 20 .0 - 40.0 % [facility] MCH (RBC) [Entitic mass] 30.5 pg 26. 0 - 34.0 pg [facility] MCHC (RBC) [Mass/Vol] 33.1 % 32.0 - 36.0 % [facility] MCV (RBC) [Entitic vol] 92.1 fL 80.0 - 98.0 fL [facility] Monocytes (Bld) [#/Vol] 0.6 10*3/uL 0.0 - 0.8 10*3/uL [facility] Monocytes/100 WBC (Bld) 9.8 % 2.0 - 10.0 % [facility] Neutrophils (Bld) [#/Vol] 3.0 10*3/uL 1. 8 - 7.0 10*3/uL [facility] Neutrophils/100 WBC (Bld) 46.5 % 40 .0 - 80.0 % [facility] Nucleated RBC/100 WBC (Bld) [Ratio] 0.0 % [facility] Platelet mean volume (Bld) [Entitic vol] 7.3 fL Low 7.4 - 12.4 fL [facility] Platelets (Bld) [#/Vol] 189 10*3/uL 140 - 440 10*3/uL [facility] RBC (Bld) [#/Vol] 3.31 10*6/uL Low 3.8 - 5.20 10*6/uL [facility] WBC (Bld) [#/Vol] 6.5 10*3/uL 3.6 - 10.7 10*3/uL [facility] CBC WITH AUTO DIFFERENTIALon 02-06-2023 Basophils (Bld) [#/Vol] 0.1 10*3/uL Normal 0.0-0.2 [facility] Comment on above: Performed By: #### L [id number] ####Crew Supervisor: VLADIMIR GALLARDO ([phone])[facility] (SB[facility])[address] [place] [address] Basophils/100 WBC (Bld) 1.1 % Normal 0.0-2.0 [facility] Comment on above: Performed By: #### L [id number] ####Crew Supervisor: VLADIMIR GALLARDO ([phone])[facility] ([facility])[address] Eosinophils (Bld) [#/Vol] 0.2 10*3/uL Normal 0.0-0.5 [facility] Comment on above: Performed By: #### L [id number] ####Crew Supervisor: VLADIMIR GALLARDO ([phone])[facility] [place] ([facility])[address] Eosinophils/100 WBC (Bld) 3.1 % Normal 1.0-6.0 [facility] Comment on above: Performed By: #### L [id number] ####Crew Supervisor: VLADIMIR GALLARDO ([phone])[facility] [place] ([facility])[address] [place] [address] Erythrocyte distribution width (RBC) [Ratio] 13.3 % Normal 11.5-14.5 [facility] Comment on above: Performed By: #### L [id number] ####Crew Supervisor: VLADIMIR GALLARDO ([phone])[facility] [place] ([facility])[address] [place] [address] ERYTHROCYTE MEAN CORPUSCULAR HEMOGLOBIN CONCENTRATION (G/DL) BY AUTOMATED 33.1 % Normal 32.0-36.0 [facility] Comment on above: Performed By: #### L [id number] ####Crew Supervisor: VLADIMIR GALLARDO ([phone])[facility] [place] ([facility])[address] [place] [address] Hematocrit (Bld) [Volume fraction] 30.5 % Low 35.0-47.0 [facility] Comment on above: Performed By: #### L [id number] ####Crew Supervisor: VLADIMIR GALLARDO ([phone])[facility] [place] ([facility])[address] [place] [address] Hemoglobin (Bld) [Mass/Vol] 10.1 g/dL Low 11.7-16.0 [facility] Comment on above: Performed By: #### L [id number] ####Crew Supervisor: VLADIMIR GALLARDO ([phone])[facility] ([facility])[address] [place] [address] Lymphocytes (Bld) [#/Vol] 2.6 10*3/uL Normal 1.0-4.3 [facility] Comment on above: Performed By: #### L [id number] ####Crew Supervisor: VLADIMIR GALLARDO ([phone])[facility] [place] [address] Lymphocytes/100 WBC (Bld) 39.5 % Normal 20.0-40.0 [facility] Comment on above: Performed By: #### L [id number] ####Crew Supervisor: VLADIMIR GALLARDO ([phone])[facility] [place] [address] MCH (RBC) [Entitic mass] 30.5 pg Normal 26.0-34.0 [facility] Comment on above: Performed By: #### L [id number] ####Crew Supervisor: VLADIMIR GALLARDO ([phone])[facility] [place] [address] MCV (RBC) [Entitic vol] 92.1 fL Normal 80.0-98.0 [facility] Comment on above: Performed By: #### L [id number] ####Crew Supervisor: VLADIMIR GALLARDO ([phone])[facility] [place] [address] Monocytes (Bld) [#/Vol] 0.6 10*3/uL Normal 0.0-0.8 [facility] Comment on above: Performed By: #### L [id number] ####Crew Supervisor: VLADIMIR GALLARDO ([phone])[facility] ([facility])[address] [place] [address] [place] Monocytes/100 WBC (Bld) 9.8 % Normal 2.0-10.0 [facility] Comment on above: Performed By: #### L [id number] ####Crew Supervisor: VLADIMIR GALLARDO ([phone])[facility] ([facility])[address] Neutrophils (Bld) [#/Vol] 3.0 10*3/uL Normal 1.8-7.0 [facility] Comment on above: Performed By: #### L [id number] ####Crew Supervisor: VLADIMIR GALLARDO ([phone])[facility] [place] ([facility])[address] Neutrophils/100 WBC (Bld) 46.5 % Normal 40.0-80.0 [facility] Comment on above: Performed By: #### L [id number] ####Crew Supervisor: VLADIMIR GALLARDO ([phone])[facility] [place] ([facility])[address] [place] [address] [place] NRBC (PER 100 WBCS) BY AUTOMATED COUNT 0.0 /100 WBCs Normal 0.0-2.0 [facility] Comment on above: Performed By: #### L [id number] ####Crew Supervisor: VLADIMIR GALLARDO ([phone])[facility] [place] ([facility])[address] [place] [address] [place] Platelet mean volume (Bld) [Entitic vol] 7.3 fL Low 7.4-12.4 [facility] Comment on above: Performed By: #### L [id number] ####Crew Supervisor: VLADIMIR GALLARDO ([phone])[facility] [place] ([facility])[address] [place] [address] [place] PLATELETS (10*3/UL) IN BLOOD AUTOMATED COUNT 189 10*3/uL Normal 140-440 [facility] Comment on above: Performed By: #### L [id number] ####Crew Supervisor: VLADIMIR GALLARDO ([phone])[facility]USBill [facility]LL[facility] ([facility])[address] RBC (Bld) [#/Vol] 3.31 10*6/uL Low 3.8-5.20 [facility] Comment on above: Performed By: #### L [id number] ####Crew Supervisor: VLADIMIR GALLARDO ([phone])[facility]US[facility] ([facility])[address] WBC (Bld) [#/Vol] 6.5 10*3/uL Normal 3.6-10.7 [facility] Comment on above: Performed By: #### L [id number] ####Crew Supervisor: VLADIMIR GALLARDO ([phone])[facility]USBill [facility] ([facility])[address] COMPREHENSIVE METABOLIC PANE [place] 02-06-2023 Albumin [Mass/Vol] 3.2 g/dL Low 3.5-5.0 [facility] Comment on above: Performed By: #### L [id number] ####Crew Supervisor: VLADIMIR GALLARDO ([phone])[facility] [facility] (SBHLAB)[address] ALP [Catalytic activity/Vol] 58 U/L Normal 38-126 [facility] Comment on above: Performed By: #### L [id number] ####Crew Supervisor: VLADIMIR GALLARDO ([phone])[facility] (SBHLAB)[address] ALT [Catalytic activity/Vol] 17 U/L Normal 0-34 [facility] Comment on above: Performed By: #### L [id number] ####Crew Supervisor: VLADIMIR GALLARDO ([phone])[facility]USN (SBHLAB)[address] Anion gap [Moles/Vol] 3 mmol/L Normal 3-13 [facility] Comment on above: Performed By: #### L [id number] ####Crew Supervisor: VLADIMIR GALLARDO ([phone])[facility]AMPUSBill BARBEMILYN (SBHLAB)[address] AST [Catalytic activity/Vol] 42 U/L Normal 15-46 [facility] Comment on above: Performed By: #### L [id number] ####Crew Supervisor: VLADIMIR GALLARDO ([phone])[facility] CAMPUSA [place] (SBHLAB)[address] Bilirubin [Mass/Vol] 0.3 mg/dL Normal 0.2-1.3 [facility] Comment on above: Performed By: #### L [id number] ####Crew Supervisor: VLADIMIR GALLARDO ([phone])[facility] [place] (SBHLAB)[address] Calcium [Mass/Vol] 8.0 mg/dL Low 8.4-10.4 [facility] Comment on above: Performed By: #### L [id number] ####Crew Supervisor: VLADIMIR GALLARDO ([phone])[facility] [place] (SBHLAB)[address] Chloride [Moles/Vol] 109 mmol/L High 98-107 [facility] Comment on above: Performed By: #### L [id number] ####Crew Supervisor: VLADIMIR GALLARDO ([phone])[facility]AMPUSA [place] (SBHLAB)155 [place] [address] [place] CO2 [Moles/Vol] 25 mmol/L Normal 22-30 [facility] Comment on above: Performed By: #### L [id number] ####Crew Supervisor: VLADIMIR GALLARDO ([phone])[facility] [place] (SBHLAB)155 [place] [address] [place] Creatinine [Mass/Vol] 0.78 mg/dL Normal 0.52-1.04 [facility] Comment on above: Performed By: #### L [id number] ####Crew Supervisor: VLADIMIR GALLARDO ([phone])[facility]AMP[facility] [place] (SBHLAB)[address] GLOMERULAR FILTRATION RATE ML/MIN/1.73 SQ M.PREDICTED 76.4 mL/min/1.73m*2 Normal >60.0 [facility] Comment on above: Result Comment: Calc ulation based on the Chronic Kidney Disease Epidemiology Collaboration (CKD-EPI) equation refit without adjustment for race Performed By: #### L [id number] ####Crew Supervisor: VLADIMIR GALLARDO ([phone])[facility]AMPUSBill [place] (SBHLAB)[address] Glucose [Mass/Vol] 93 mg/dL Normal 70-100 [facility] Comment on above: Performed By: #### L AB17 ####Crew Supervisor: VLADIMIR GALLARDO ([phone])[facility]AMPUSA [facility] (SBHLAB)[address] Potassium [Moles/Vol] 4.2 mmol/L Normal 3.5-5.1 [facility] Comment on above: Performed By: #### L AB17 ####Crew Supervisor: VLADIMIR GALLARDO ([phone])[facility]USA [facility] (SBHLAB)[address] Protein [Mass/Vol] 5.8 g/dL Low 6.3-8.2 [facility] Comment on above: Performed By: #### L [id number] ####Crew Supervisor: VLADIMIR GALLARDO ([phone])[facility] [place] (SBHLAB)155 [place] [address] [place] Sodium [Moles/Vol] 137 mmol/L Normal 135-145 [facility] Comment on above: Performed By: #### L AB17 ####Crew Supervisor: VLADIMIR GALLARDO ([phone])[facility]AMPUSA [place] (SBHLAB)155 [place] [address] [place] Urea nitrogen [Mass/Vol] 20 mg/dL High 7-17 [facility] Comment on above: Performed By: #### L AB17 ####Crew Supervisor: VLADIMIR GALLARDO ([phone])[facility]AMPUSA [place] (SBHLAB)155 [place] [address] [facility] Comprehensive metabolic 1998 panelon 02-06-2023 Albumin [Mass/Vol] 3.2 g/dL Low 3.5 - 5.0 g/dL [facility] ALP [Catalytic activity/Vol] 58 U/L 38 - 126 U/L [facility] ALT [Catalytic activity/Vol] 17 U/L 0 - 34 U/L [facility] Anion gap [Moles/Vol] 3 mmol/L 3 - 13 mmol/L [facility] AST [Catalytic activity/Vol] 42 U/L 15 - 46 U/L [facility] Bilirubin [Mass/Vol] 0.3 mg/dL 0.2 - 1 .3 mg/dL [facility] Calcium [Mass/Vol] 8.0 mg/dL Low 8.4 - 10. 4 mg/dL [facility] Chloride [Moles/Vol] 109 mmol/L High 98 - 10 7 mmol/L [facility] CO2 [Moles/Vol] 25 mmol/L 22 - 30 mmol/L [facility] Creatinine [Mass/Vol] 0.78 mg/dL 0.52 - 1.04 mg/dL [facility] GFR/1.73 sq M.predicted MDRD (S/P/Bld) [Vol rate/Area] 76.4 mL/min/{1.73_m2} - PINF [facility] Comment on above: Calculation based on the Chronic Kidney Disease Epidemiology Collaboration (CKD-EPI) equation refit without adjustment for race Glucose [Mass/Vol] 93 mg/dL 70 - 100 mg/dL [facility] Interpretation and review of laboratory results Abnormal [facility] th Potassium [Moles/Vol] 4.2 mmol/L 3.5 - 5.1 mmol/L [facility] Protein [Mass/Vol] 5.8 g/dL Low 6.3 - 8.2 g/dL [facility] Sodium [Moles/Vol] 137 mmol/L 135 - 145 mmol/L [facility] Urea nitrogen [Mass/Vol] 20 mg/dL High 7 - 17 mg/d L [facility] IDNon 02-06-2023 IDN Problem: Pain - Adult Goal: Verbalizes/displays adequate comfort level or baseline comfort level Outcome: Progressing Problem: Safety - Adult Goal: Free from fall injury Outcome: Progressing Problem: Discharge Planning Goal: Discharge to home or other facility with appropriate resources Outcome: Progressing Problem: Chronic Conditions and Co-morbidities Goal: Patient's chronic conditions and co-morbidity symptoms are monitored and maintained or improved Outcome: Progressing Problem: Skin/Tissue Integrity - Adult Goal: Skin integrity remains intact Outcome: Progressing Goal: Incisions, wounds, or drain sites healing without S/S of infection Outcome: Progressing Goal: Oral mucous membranes remain intact Outcome: Progressing Problem: Musculoskeletal - Adult Goal: Return mobility to safest level of function Outcome: Progressing Goal: Maintain proper alignment of affected body part Outcome: Progressing Goal: Return ADL status to a safe level of function Outcome: Progressing Normal [facility] Progress Noteon 02-06-2023 Progress Note PHYSICAL THERAPY [facility] Treatment Note Name/MRN: Albina Brown ([id number]) Date of : 1940 Age: 82 y.o. Room/Bed: [facility]151/[facility]151 A Visit #: 1 out of 5 visits Discharge Recommendation: Home with Home PT, Home with 24/7 Assist, Continue to assess pending progress, and if 24 hour assist is not available patient may require SNF due to significant safety concerns Equipment Needed: TBD with further treatment as patient does not currently own medical equipment Prior Level of Function ADL Assistance: Independent Ambulation Assistance: Independent Device(s) used: none Transfer Assistance: Independent Assessment Pt progressing slowly toward acute care goals. Pt is is SBA for transfers from recliner chair, CGA with ambulation with no device. Demonstrates decreased overall balance and narrow YOLANDA. Pt is CGA for stair trials. Pt is expected to benefit from continued therapy In order to increase overall independence. Subjective Pt is agreeable to therapy. Observation: Per RN okay to therapy. Pt sitting in recliner chair with alarm donned Vitals: Per RN okay to see. Pain: Pt denies any current pain. Medical Precautions: No active isolations Proper PPE donned/doffed in accordance with facility standards. Fall Risk: Jim Fall Risk Score: 85 (High Risk) Precautions/Restrict ions: N/A Overall Cognitive Status: Exceptions Overall Orientation Status: Unable to Assess Family/Caregiver Present: none Objective Ambulation Ambulation 1 Assistive device(s) used: none Assist level: Contact Guard Distance (ft): 150ft x 1 Quality of gait: demonstrates a narrow YOLANDA, reciprocal gait pattern, decreased step height and length, upright posture, lateral swaying, unsteadiness but no LOB noted Transfers/Mobility Sit to stand: SBA Stand to sit: SBA Demonstrates proper hand placement with ascends and descends. Device(s) used: none Bed Mobility Sitting in recliner chair pre/post session. Alarm donned. Stairs Stairs 1 Assistive device(s) used: none Assist level: Contact Guard # of steps: 4 Rails: right Additional factors: non-reciprocal going up, non-reciprocal going down, Pt able to demonstrate step to pattern, with B R rail supervisor seaming. No major Lob noted. Plan Continue acute PT per plan of care. Safety/Education Safety Safety Devices in place: All fall risk precautions in place, call light within reach, left in chair, chair alarm in place, gait belt, patient at risk for falls, and nurse notified Restraints: No Education Education Given To: patient Education Provided: PT Role, PT Goals, Gait Training, Plan of Care, and Transfer Training Education Method: Verbal and Demonstration Barriers to Learning: Cognition Education Outcome: Demonstrated Understanding and Continued Education Needed Outcome Measures AM-PAC AM-PAC Inpatient Mobility Raw Score (No Stairs) : 15 Goals Patient Stated Goal: Patient states she wants to get home. Encounter Problems Encounter Problems (Active) Balance Patient will maintain dynamic standing balance for 5 minutes with modified independence in order to demonstrate decreased risk of falling. (Progressing) Start: 02/05/23 Expected End: 02/12/23 Exercise Patient will complete lower extremity exercises for 1-2 sets / 10 reps in order to improve strength and activity tolerance for mobility. (Not Addressed) Start: 02/05/23 Expected End: 02/12/23 Mobility Patient will ambulate 100 feet with modified independence and least restrictive device in order to improve safety and independence with mobility. (Progressing) Start: 02/05/23 Expected End: 02/12/23 Patient will ascend and descend 5 stairs with one railing and modified independence in order to safely negotiate home. (Progressing) Start: 02/05/23 Expected End: 02/12/23 Pain - Adult Transfers Patient will perform bed mobility with modified independence in order to improve independence and prepare for out of bed mobility. (Progressing) Start: 02/05/23 Expected End: 02/12/23 Patient will complete functional transfers with least restrictive device with modified independence in order to prepare for ambulation. (Progressing) Start: 02/05/23 Expected End: 02/12/23 Therapy Time Individual Co-treatment Time In 1405 Time Out 1414 Minutes 9 Timed Code Treatment Minutes: 9 Minutes (1 gait) Marisabel Suarez PTA [facility] Progress Note Nutrition rescreen completed. Patient assigned a level 1. [facility] Progress Note OCCUPATIONAL THERAPY [facility] Treatment Note Name/MRN: Albina Brown ([id number]) Date of : 1940 Age: 82 y.o. Room/Bed: B1-151/B1-151 A Visit #: 1 out of 5 visits Discharge Recommendation: Home with Home OT, Home with 24/7 Assist, and if 24 hr SUP not available, would benefit from SNF for safety. Equipment Needed: none Prior Level of Function ADL Assistance: Independent Ambulation Assistance: Independent Transfer Assistance: Independent Assessment Pt tolerated OT session well this date. Pt currently requires CGA for functional mobility without a device to/from bathroom, SBA for transfers, CGA for toilet transfer, SBA for bed mobility, SBA-Min A for toileting/LE dressing tasks, SBA for UE ADLs, SBA for grooming standing at sink. Pt is limited by decreased cognition, decreased endurance and strength. Pt will continue to benefit from skilled OT services to address noted deficits and maximize safety for occupational performance. Pt is recommended for home with 24/7 supervision for planned discharge. Subjective Pt presents supine in bed, agreeable to OT. Okay to see per RN. Per documentation, pt has a fall yesterday, pt unable to recall event. Also doesn't recall passing away recently. Pt perseverative on going home, asks multiple times "has anyone talked to my family yet?" Pain: Pt denies any current pain. Medical Precautions: No active isolations Proper PPE donned/doffed in accordance with facility standards. Fall Risk: Jim Fall Risk Score: 85 (High Risk) Precautions/Restrict ions: N/A Family/Caregiver Present: none Objective ADLs Grooming: SBA UE Dressing: SBA LE Dressing: SBA, Min Assist Toileting: SBA, Min Assist Pt demo's UE dressing sitting EOB with SBA to doff/don gown, SBA to thread hospital pant, Min A to manage upon pulling up due to tightness of pants, pt doffs with SBA. Pt demo's toileting to std height commode with SBA for anterior pericare seated, Min A for management of brief/hospital pant management. Bed Mobility Supine to sit: SBA HOB elevated, use of bedrail, increased time and effort to scoot to EOB. Cognition - Safety judgement: decreased awareness of need for assistance and decreased awareness of need for safety - Problem solving: assistance required to identify errors made, assistance required to correct errors made, and decreased awareness of errors - Insights: decreased awareness of deficits Pt A+O x2, to self and place Plan Continue acute OT per plan of care. Safety/Education Safety Safety Devices in place: All fall risk precautions in place, call light within reach, left in chair, chair alarm in place, gait belt, patient at risk for falls, and nurse notified Restraints: N/A Education Education Given To: patient Education Provided: OT Role, Plan of Care, ADL Adaptive Strategies, Transfer Training, Discharge Recommendations, and Benefits of Increasing Activity Education Method: Verbal and Demonstration Barriers to Learning: Cognition Education Outcome: Continued Education Needed AM-PAC AM-PAC Inpatient Daily Activity Raw Score: 19 ADL Inpatient CMS G-Code Modifier: CK Goals Patient Stated Goal: none stated at this time. Encounter Problems Encounter Problems (Active) Dressings Lower Extremities Patient will dress lower body MOD I (Progressing) Start: 02/05/23 Expected End: 02/12/23 Mobility Patient will demonstrate functional mobility with MOD I and LRD (Progressing) Start: 02/05/23 Expected End: 02/12/23 Toileting Patient will complete toileting tasks at standard toilet with modified independence. (Progressing) Start: 02/05/23 Expected End: 02/12/23 Transfers Patient will complete functional transfer with least restrictive device with modified independence in order to prepare for ambulation. (Progressing) Start: 02/05/23 Expected End: 02/12/23 Therapy Time Individual Co-treatment Time In 1034 Time Out 1053 Minutes 19 Timed Code Treatment Minutes: 19 Minutes (x1 self care) Freda Proctor OT POC supervision transferred to rehab service department Occupational Therapist Normal [facility] Progress Note [facility] Geriatric Medicine Inpatient Consult Service Admission Date: 02/04/2023 Assessment Principal Problem: Dementia (HCC) Active Problems: At risk for delirium Anxiety Altered mental status Plan Dementia -likely Alzheimer's Disease -needs 10/11 supervision going forward. Family working on this. -continue namenda. She takes namenda XR 21 mg daily at home. We only have the IR version in hospital, so currently on Namenda 10 mg in AM and 5 mg in PM. She can be switched back to XR version at discharge Anxiety -she was on celexa 40 mg daily at home. The maximum recommended dose of celexa is geriatric population is 20 mg daily due to risk of qtc prolongation. Order was lowered to 30 mg daily x 14 days then 20 mg daily thereafter Debility -had a fall yesterday -may be going to SNF for rehab prior to going home with 10/11 supervision -Physical Therapy and Occupational Therapy -case management as made SNF referral At Risk for Delirium -Risk factors include: age and cognitive impairment -Melatonin nightly prn insomnia -Avoid sedating/anticholine rgic medications -Encourage family visits -Encourage sleep hygiene -Minimize barriers to nutrition -Optimize sensory input and access to assistive devices where indicated -Encourage time up in chair - including at meals - as able -Unless contraindicated, encourage regular ambulation with assistance -D/c Cespedes, restraints, IV lines, as able Follow-up: prn, please page with any questions/issues Subjective Chief Complaint: confusion, wandering Geriatrics consulted for Dementia HPI- The patient is known to me. Albina Brown is an 82 year old female with PMH of anxiety, hld, breast cancer (on Tamoxifen, follows with Dr Carlson), acid reflux who presented to hospital after being found wandering outside. This occurred twice recently. She is noted to be very forgetful - family reports long-standing memory issues. Family reports she had been living alone and family would come over to her house to help with taking her medications. Patient's recently in early January. She does not remember that he Reviewed today's primary team progress note: no compaints this morning. She is disoriented. Family does not want LTC - they are trying to arrange 24 hour help at home. Reviewed rapid response note from last night. Patient had a fall while transfering from wheelchair to bedside chair. CMP today: BUN 20 CBC today: hgb 10.1 CT head: atrophy and chronic ischemic change. No acute process. Interval History: -she reports feeling well today. Denies pain. Doesn't feel sick. Knows she is in a hospital but not sure which one. Appetite is good. Says she slept well last night. Review of Systems Constitutional: Negative for fever. Respiratory: Negative for shortness of breath. Cardiovascular: Negative for leg swelling. Gastrointestinal: Negative for abdominal pain, constipation, diarrhea and nausea. Genitourinary: Negative for dysuria. Musculoskeletal: Negative for arthralgias and myalgias. Objective BP (!) 151/78 Pulse 64 Temp 36.4 ?C (97.6 ?F) (Temporal) Resp 18 SpO2 95% No intake or output data in the 24 hours ending 02/06/23 1049 Wt Readings from Last 3 Encounters: 08/28/22 166 lb 12.8 oz (75.7 kg) 02/24/22 165 lb 14.4 oz (75.3 kg) 01/21/22 163 lb 9.6 oz (74.2 kg) Current Facility-Administere d Medications: acetaminophen (Tylenol) tablet 650 mg, 650 mg, Oral, q6h PRN OR acetaminophen (Tylenol) suppository 650 mg, 650 mg, Rectal, q6h PRN, Philippe Farmer MD aspirin chewable tablet 81 mg, 81 mg, Oral, Daily, Philippe Farmer MD, 81 mg at 02/06/23 0859 [START ON 02/18/2023] citalopram (CeleXA) tablet 20 mg, 20 mg, Oral, Daily, Regina Yu MD citalopram (CeleXA) tablet 30 mg, 30 mg, Oral, Daily, John Mai MD, 30 mg at 02/06/23 0900 enoxaparin (Lovenox) syringe 40 mg, 40 mg, SubCUTAneous, Daily, Philippe Farmer MD, 40 mg at 02/06/23 0900 melatonin tablet 5 mg, 5 mg, Oral, Nightly PRN, Angelito Matson MD, 5 mg at 02/04/232024 memantine (Namenda) tablet 10 mg, 10 mg, Oral, q AM, 10 mg at 02/06/23 0900 AND memantine (Namenda) tablet 5 mg, 5 mg, Oral, Nightly, John Mai MD, 5 mg at 02/05/232052 ondansetron ODT (Zofran-ODT) disintegrating tablet 4 mg, 4 mg, Oral, q8h PRN OR ondansetron (Zofran) injection 4 mg, 4 mg, IntraVENous, q6h PRN, Philippe Farmer MD polyethylene glycol (PEG) 3350 (Miralax) packet 17 g, 17 g, Oral, Daily PRN, Philippe Farmer MD tamoxifen (Nolvadex) chemo tablet 20 mg, 20 mg, Oral, Daily, Philippe Farmer MD, 20 mg at 02/05/23 0848 Physical Exam Constitutional: General: She is not in acute distress. Appearance: She is not ill-appearing. HENT: Head: Normocephalic and atraumatic. Cardiovascular: Rate and Rhythm: Normal rate and regular rhythm. Heart sounds: No murmur heard. No friction ru (more content not included)... Normal [facility] Bacteria identified Cx Nom ( U)Ordered By: Sha Crawford on 02-05-2023 Interpretation and review of laboratory results [facility] JULIENJAMES Spoke with daughter in law Renetta regarding therapy evals & observation status. She would like to follow up with pt son who is currently working in [place]. They were under the impression from ER staff that they had 72 hours to decide on plan for her. Explained to her the observation is an outpt stay & that 24-48 hrs is the usual the limit. They do not want long-term placement at this time & are trying to arrange 24 hr help at home.She will follow up with pt son & then f/u with [facility] when decisions are made. Assessment not completed as daughter in law was at work & limited on time. [facility] STARR S/W, follow up Patient Waiver Caseman[employer] called back. Precious did relay that they do have an independent aide that is set to be approved for the patient, the process will take about two weeks to complete. Precious did state patient family does watch over the patient consistently. Precious notes that since patient was placed in a Nursing facility ( [facility]) the patient has had a decline. Patient did pass away 10-4. Precious noted she will be discussing getting the patient more days at the [facility] with ALIX Weber, at least until patient aide is approved. I did update Unit S/W of the above. Normal [facility] [place] SW consult for possible placement vs return home with home health care. ED SW met with patient and family. PT/OT ordered. Covering TCC to complete initial case management assessment. TCC to also follow for possible placement once therapy assesses and makes their recommendations. SW to follow for any discharge barriers. Normal [facility] CBC W Auto Differential pane l (Bld)Ordered By: Ayleen Nunez on 02-05-2023 Basophils (Bld) [#/Vol] 0.1 10*3/uL 0.0 - 0.2 10*3/uL [facility] Basophils/100 WBC (Bld) 0.9 % 0.0 - 2.0 % [facility] Eosinophils (Bld) [#/Vol] 0.2 10*3/uL 0. 0 - 0.5 10*3/uL [facility] Eosinophils/100 WBC (Bld) 3.3 % 1.0 - 6.0 % [facility] Erythrocyte distribution width (RBC) [Ratio] 13.4 % 11.5 - 14.5 % [facility] Hematocrit (Bld) [Volume fraction] 34.0 % Low 35.0 - 47.0 % [facility] Hemoglobin (Bld) [Mass/Vol] 11.3 g/dL Low 11.7 - 16.0 g/dL [facility] Interpretation and review of laboratory results Abnormal [facility] th Lymphocytes (Bld) [#/Vol] 2.5 10*3/uL 1. 0 - 4.3 10*3/uL [facility] Lymphocytes/100 WBC (Bld) 36.0 % 20 .0 - 40.0 % [facility] MCH (RBC) [Entitic mass] 30.7 pg 26. 0 - 34.0 pg [facility] MCHC (RBC) [Mass/Vol] 33.2 % 32.0 - 36.0 % [facility] MCV (RBC) [Entitic vol] 92.7 fL 80.0 - 98.0 fL [facility] Monocytes (Bld) [#/Vol] 0.7 10*3/uL 0.0 - 0.8 10*3/uL [facility] Monocytes/100 WBC (Bld) 9.6 % 2.0 - 10.0 % [facility] Neutrophils (Bld) [#/Vol] 3.5 10*3/uL 1. 8 - 7.0 10*3/uL [facility] Neutrophils/100 WBC (Bld) 50.2 % 40 .0 - 80.0 % [facility] Nucleated RBC/100 WBC (Bld) [Ratio] 0.1 % [facility] Platelet mean volume (Bld) [Entitic vol] 7.5 fL 7.4 - 12.4 fL [facility] Platelets (Bld) [#/Vol] 217 10*3/uL 140 - 440 10*3/uL [facility] RBC (Bld) [#/Vol] 3.67 10*6/uL Low 3.8 - 5.20 10*6/uL [facility] WBC (Bld) [#/Vol] 7.0 10*3/uL 3.6 - 10.7 10*3/uL [facility] CBC WITH AUTO DIFFERENTIALon 02-05-2023 Basophils (Bld) [#/Vol] 0.1 10*3/uL Normal 0.0-0.2 [facility] Comment on above: Performed By: #### L [id number] ####Crew Supervisor: VLADIMIR GALLARDO ([phone])[facility] CAMPUSCarlitos ([facility])[address] [place] [address] Basophils/100 WBC (Bld) 0.9 % Normal 0.0-2.0 S [facility] Comment on above: Performed By: #### L [id number] ####Crew Supervisor: VLADIMIR GALLARDO ([phone])[facility] [place] (SBHLAB)[address] Eosinophils (Bld) [#/Vol] 0.2 10*3/uL Normal 0.0-0.5 [facility] Comment on above: Performed By: #### L [id number] ####Crew Supervisor: VLADIMIR GALLARDO ([phone])[facility] [place] ([facility])[address] Eosinophils/100 WBC (Bld) 3.3 % Normal 1.0-6.0 [facility] Comment on above: Performed By: #### L [id number] ####Crew Supervisor: VLADIMIR GALLARDO ([phone])[facility] [place] ([facility])[address] Erythrocyte distribution width (RBC) [Ratio] 13.4 % Normal 11.5-14.5 [facility] Comment on above: Performed By: #### L [id number] ####Crew Supervisor: VLADIMIR GALLARDO ([phone])[facility] ([facility] ERYTHROCYTE MEAN CORPUSCULAR HEMOGLOBIN CONCENTRATION (G/DL) BY AUTOMATED 33.2 % Normal 32.0-36.0 [facility] Comment on above: Performed By: #### L [id number] ####Crew Supervisor: VLADIMIRKRISTIN GALLARDO ([phone])[facility] [place] ([facility])[address] Hematocrit (Bld) [Volume fraction] 34.0 % Low 35.0-47.0 [facility] Comment on above: Performed By: #### L [id number] ####Crew Supervisor: VLADIMIRKRISTIN GALLARDO ([phone])[facility] [place] ([facility])[address] Hemoglobin (Bld) [Mass/Vol] 11.3 g/dL Low 11.7-16.0 [facility] Comment on above: Performed By: #### L [id number] ####Crew Supervisor: VLADIMIRKRISTIN CORDOVATerriVAISHNAVI ([phone])[facility] [place] ([facility])[address] Lymphocytes (Bld) [#/Vol] 2.5 10*3/uL Normal 1.0-4.3 [facility] Comment on above: Performed By: #### L [id number] ####Crew Supervisor: VLADIMIR SAMI ([phone])[facility] ([facility] Lymphocytes/100 WBC (Bld) 36.0 % Normal 20.0-40.0 [facility] Comment on above: Performed By: #### L [id number] ####Crew Supervisor: VLADIMIR GALLARDO ([phone])[facility] [place] (SBHL[facility])[address] [place] [address] MCH (RBC) [Entitic mass] 30.7 pg Normal 26.0-34.0 [facility] Comment on above: Performed By: #### L [id number] ####Crew Supervisor: VLADIMIRKRISTIN GALLARDO ([phone])[facility] MCV (RBC) [Entitic vol] 92.7 fL Normal 80.0-98.0 [facility] Comment on above: Performed By: #### L [id number] ####Crew Supervisor: VLADIMIR RALPHVAISHNAVI ([phone])[facility] Monocytes (Bld) [#/Vol] 0.7 10*3/uL Normal 0.0-0.8 [facility] Comment on above: Performed By: #### L [id number] ####Crew Supervisor: VLADIMIR RALPHVAISHNAVI ([phone])[facility] [place] ([facility])[address] Monocytes/100 WBC (Bld) 9.6 % Normal 2.0-10.0 [facility] Comment on above: Performed By: #### L [id number] ####Crew Supervisor: VLADIMIR GALLARDO ([phone])[facility] [place] ([facility])[address] Neutrophils (Bld) [#/Vol] 3.5 10*3/uL Normal 1.8-7.0 [facility] Comment on above: Performed By: #### L [id number] ####Crew Supervisor: VLADIMIR GALLARDO ([phone])[facility] [place] ([facility])[address] Neutrophils/100 WBC (Bld) 50.2 % Normal 40.0-80.0 [facility] Comment on above: Performed By: #### L [id number] ####Crew Supervisor: VLADIMIR RALPHVAISHNAVI ([phone])[facility] ([facility])[address] NRBC (PER 100 WBCS) BY AUTOMATED COUNT 0.1 /100 WBCs Normal 0.0-2.0 [facility] Comment on above: Performed By: #### L [id number] ####Crew Supervisor: VLADIMIR GALLARDO ([phone])[facility] [place] ([facility])[address] Platelet mean volume (Bld) [Entitic vol] 7.5 fL Normal 7.4-12.4 [facility] Comment on above: Performed By: #### L [id number] ####Crew Supervisor: VLADIMIR GALLARDO ([phone])[facility] [place] ([facility])[address] [place] [address] [place] PLATELETS (10*3/UL) IN BLOOD AUTOMATED COUNT 217 10*3/uL Normal 140-440 [facility] Comment on above: Performed By: #### L [id number] ####Crew Supervisor: VLADIMIR GALLARDO ([phone])[facility] [place] ([facility])[address] [place] [address] [place] RBC (Bld) [#/Vol] 3.67 10*6/uL Low 3.8-5.20 [facility] Comment on above: Performed By: #### L [id number] ####Crew Supervisor: VLADIMIR GALLARDO ([phone])[facility] [place] ([facility])[address] WBC (Bld) [#/Vol] 7.0 10*3/uL Normal 3.6-10.7 [facility] Comment on above: Performed By: #### L [id number] ####Crew Supervisor: VLADIMIR GALLARDO ([phone])[facility] [place] ([facility])[address] COMPREHENSIVE METABOLIC PANE Temo 02-05-2023 Albumin [Mass/Vol] 3.7 g/dL Normal 3.5-5.0 [facility] Comment on above: Performed By: #### L AB17 ####Crew Supervisor: VLADIMIR GALLARDO ([phone])[facility] [place] ([facility])[address] ALP [Catalytic activity/Vol] 70 U/L Normal 38-126 [facility] Comment on above: Performed By: #### L AB17 ####Crew Supervisor: VLADIMIR GALLARDO ([phone])[facility] ([facility])[address] ALT [Catalytic activity/Vol] 19 U/L Normal 0-34 [facility] Comment on above: Performed By: #### L AB17 ####Crew Supervisor: VLADIMIR GALLARDO ([phone])[facility] [place] ([facility])[address] Anion gap [Moles/Vol] 6 mmol/L Normal 3-13 [facility] Comment on above: Performed By: #### L AB17 ####Crew Supervisor: VLADIMIR GALLARDO ([phone])[facility] [place] ([facility])[address] AST [Catalytic activity/Vol] 39 U/L Normal 15-46 [facility] Comment on above: Performed By: #### L AB17 ####Crew Supervisor: VLADIMIR GALLARDO ([phone])[facility] [place] ([facility])[address] Bilirubin [Mass/Vol] 0.5 mg/dL Normal 0.2-1.3 [facility] Comment on above: Performed By: #### L AB17 ####Crew Supervisor: VLADIMIR GALLARDO ([phone])[facility] [place] ([facility])[address] Calcium [Mass/Vol] 8.7 mg/dL Normal 8.4-10.4 [facility] Comment on above: Performed By: #### L AB17 ####Crew Supervisor: VLADIMIR GALLARDO ([phone])[facility]US[facility] [place] ([facility])[address] Chloride [Moles/Vol] 110 mmol/L High 98-107 [facility] Comment on above: Performed By: #### L AB17 ####Crew Supervisor: VLADIMIR GALLARDO ([phone])[facility] [place] ([facility])[address] CO2 [Moles/Vol] 21 mmol/L Low 22-30 [facility] Comment on above: Performed By: #### L AB17 ####Crew Supervisor: VLADIMIR GALLARDO ([phone])[facility] [place] ([facility])[address] Creatinine [Mass/Vol] 0.68 mg/dL Normal 0.52-1.04 [facility] Comment on above: Performed By: #### L AB17 ####Crew Supervisor: VLADIMIR GALLARDO ([phone])[facility] [place] ([facility])[address] GLOMERULAR FILTRATION RATE ML/MIN/1.73 SQ M.PREDICTED 87.6 mL/min/1.73m*2 Normal >60.0 [facility] Comment on above: Result Comment: Calc ulation based on the Chronic Kidney Disease Epidemiology Collaboration (CKD-EPI) equation refit without adjustment for race Performed By: #### L AB17 ####Crew Supervisor: VLADIMIR GALLARDO ([phone])[facility] Glucose [Mass/Vol] 101 mg/dL High 70-100 [facility] Comment on above: Performed By: #### L AB17 ####Crew Supervisor: VLADIMIR GALLARDO ([phone])[facility] Potassium [Moles/Vol] 4.2 mmol/L Normal 3.5-5.1 [facility] Comment on above: Performed By: #### L AB17 ####Crew Supervisor: VLADIMIR GALLARDO ([phone])[facility] ([facility])[address] [place] [address] Protein [Mass/Vol] 6.7 g/dL Normal 6.3-8.2 [facility] Comment on above: Performed By: #### L AB17 ####Crew Supervisor: VLADIMIR GALLARDO ([phone])[facility] ([facility])[address] Sodium [Moles/Vol] 138 mmol/L Normal 135-145 [facility] Comment on above: Performed By: #### L AB17 ####Crew Supervisor: VLADIMIR GALLARDO ([phone])[facility] ([facility])[address] [place] [address] Urea nitrogen [Mass/Vol] 17 mg/dL Normal 7-17 [facility] Comment on above: Performed By: #### L AB17 ####Crew Supervisor: VLADIMIR GALLARDO ([phone])[facility] ([facility])[address] [place] [address] CT HEAD WO IV CONTRASTon CT HEAD WO IV CONTRAST Patient Name: ALBINA GARCIA : 1940 Exam Date/Time: 02/05/2023 15:03 Procedure: CT HEAD WO IV CONTRAST Ordering Provider: SEYMOUR BETHANY Reason For Exam: Memory loss CT HEAD WITHOUT CONTRAST: INDICATION: Memory loss COMPARISON: None. Unenhanced CT images of the head from skull base to vertex were obtained. The images are reviewed in the axial, sagittal and coronal planes. Dose reduction was employed with automated exposure control. The ventricles and sulci are enlarged, consistent with atrophy. Focal and confluent areas of low-attenuation are noted within the subcortical and periventricular white matter suggesting chronic ischemia. There is no evidence of hemorrhage, mass or large acute infarct. There is no mass or significant shift of the midline structures. There are no extraaxial or posterior fossa masses or fluid collections. The hypothalamic and parasellar regions are unremarkable. The paranasal sinuses are clear. IMPRESSION: Atrophy and chronic ischemic change. No acute intracranial process. Report Dictated on Electronically Signed By: Shahram Ricks DO Electronically Signed Date/Time: 02/05/2023 3:10 PM EDT Denies any head complaints Normal [facility] CT Head WO contraston 2022 Atrophy and chronic ischemic change. No acute intracranial process. Report Dictated on Electronically Signed By: Shahram Ricks DO Electronically Signed Date/Time: 02/05/2023 3:10 PM EDT [facility] 1940 [id number] Exam Date/Time: 02/05/2023 15:03 Procedure: CT HEAD WO IV CONTRAST Ordering Provider: SEYMOUR BETHANY Reason For Exam: Memory loss CT HEAD WITHOUT CONTRAST: INDICATION: Memory loss COMPARISON: None. Unenhanced CT images of the head from skull base to vertex were obtained. The images are reviewed in the axial, sagittal and coronal planes. Dose reduction was employed with automated exposure control. The ventricles and sulci are enlarged, consistent with atrophy. Focal and confluent areas of low-attenuation are noted within the subcortical and periventricular white matter suggesting chronic ischemia. There is no evidence of hemorrhage, mass or large acute infarct. There is no mass or significant shift of the midline structures. There are no extraaxial or posterior fossa masses or fluid collections. The hypothalamic and parasellar regions are unremarkable. The paranasal sinuses are clear. [facility] Shahram Ricks DO - 02/05/2023 Patient Name: ALBINA BROWN : 1940 Exam Date/Time: 02/05/2023 15:03 Procedure: CT HEAD WO IV CONTRAST Ordering Provider: SEYMOUR BETHANY Reason For Exam: Memory loss CT HEAD WITHOUT CONTRAST: INDICATION: Memory loss COMPARISON: None. Unenhanced CT images of the head from skull base to vertex were obtained. The images are reviewed in the axial, sagittal and coronal planes. Dose reduction was employed with automated exposure control. The ventricles and sulci are enlarged, consistent with atrophy. Focal and confluent areas of low-attenuation are noted within the subcortical and periventricular white matter suggesting chronic ischemia. There is no evidence of hemorrhage, mass or large acute infarct. There is no mass or significant shift of the midline structures. There are no extraaxial or posterior fossa masses or fluid collections. The hypothalamic and parasellar regions are unremarkable. The paranasal sinuses are clear. IMPRESSION: Atrophy and chronic ischemic change. No acute intracranial process. Report Dictated on Electronically Signed By: Shahram Ricks DO Electronically Signed Date/Time: 02/05/2023 3:10 PM EDT [facility] Radiology Study observation (narrative) [facility] CT Head WO contrastOrdered B y: Shahram Ricks on 02-05-2023 [facility] Work Phone: Comprehensive metabolic 1998 panelon 02-05-2023 Albumin [Mass/Vol] 3.7 g/dL 3.5 - 5.0 g/dL [facility] ALP [Catalytic activity/Vol] 70 U/L 38 - 126 U/L [facility] ALT [Catalytic activity/Vol] 19 U/L 0 - 34 U/L [facility] Anion gap [Moles/Vol] 6 mmol/L 3 - 13 mmol/L [facility] AST [Catalytic activity/Vol] 39 U/L 15 - 46 U/L [facility] Bilirubin [Mass/Vol] 0.5 mg/dL 0.2 - 1 .3 mg/dL [facility] Calcium [Mass/Vol] 8.7 mg/dL 8.4 - 10. 4 mg/dL [facility] Chloride [Moles/Vol] 110 mmol/L High 98 - 10 7 mmol/L [facility] CO2 [Moles/Vol] 21 mmol/L Low 22 - 30 mmol/L [facility] Creatinine [Mass/Vol] 0.68 mg/dL 0.52 - 1.04 mg/dL [facility] GFR/1.73 sq M.predicted MDRD (S/P/Bld) [Vol rate/Area] 87.6 mL/min/{1.73_m2} - PINF [facility] Comment on above: Calculation based on the Chronic Kidney Disease Epidemiology Collaboration (CKD-EPI) equation refit without adjustment for race Glucose [Mass/Vol] 101 mg/dL High 70 - 100 mg/dL [facility] Interpretation and review of laboratory results Abnormal [facility] Potassium [Moles/Vol] 4.2 mmol/L 3.5 - 5.1 mmol/L [facility] Protein [Mass/Vol] 6.7 g/dL 6.3 - 8.2 g/dL [facility] Sodium [Moles/Vol] 138 mmol/L 135 - 145 mmol/L [facility] Urea nitrogen [Mass/Vol] 17 mg/dL 7 - 17 mg/d L [facility] IDNon 02-05-2023 IDN Paged to bedside r/t witnessed fall. Pt stated that she fell while transferring from the wheelchair to the bedside chair. Stated that she bumped her head on the padded armrest of the chair when she fell. Pt A+O to person and place. Pt denies any pain. No new lacerations, bumps or bruising. Dr. Olivas to bedside to clear pt to return to bed. No orders to follow. Normal [facility] Laboratory - Microbiology an d Antimicrobial susceptibilityOrdered By: Sha Crawford on 02-05-2023 Bacteria identified Cx Nom (U) Normal urogenital sonal present [facility] Progress Noteon 02-05-2023 Progress Note Called by staff to pt's room for a fall. PT was returning from CT with transporter Dali when pt fell onto the floor while trying to sit onto chair. Pt states she did bump her head on armrest of chair. [employer] called and vital signs were obtained. Henrik from [employer] dwon to assess pt, along with nursing seismic prospecting supervisor Pearl, and Dr. Winters. Pt A&O to person and place, and denies pain at this time. Pt doesn't have any lacerations and denies headache, and/or dizziness. Dr. Winters cleared pt to get into chair. No new orders at this time. ALIX Weber notified of pt's fall. Normal [facility] 25-hydroxyvitamin D3 [Mass/V ol]on 02-04-2023 Interpretation and review of laboratory results Normal [facility] Therapy is based on measurement of Total 25-OHD with the following classification levels: Less than 20 ng/mL: Indicative of Vit D deficiency 20-30 ng/mL: Suggests Vit D insufficiency Optimal: Greater than or equal to 30 ng/mL Test performed by Infoharm[employer] Competitive Immunoassay, measuring Total Vitamin D, not individual fractions. [facility] BASIC METABOLIC PANELon 01-18 Anion gap [Moles/Vol] 4 mmol/L Normal 3-13 [facility] Comment on above: Performed By: #### L AB129, LAB15, LAB67 ####Crew Supervisor: VLADIMIR GALLARDO ([phone])[facility] ([facility])[address] [place] [address] Calcium [Mass/Vol] 9.3 mg/dL Normal 8.4-10.4 [facility] Comment on above: Performed By: #### L AB129, LAB15, LAB67 ####Crew Supervisor: VLADIMIR GALLARDO ([phone])[facility] (SBHL[facility])[address] [place] [address] [place] Chloride [Moles/Vol] 109 mmol/L High 98-107 [facility] Comment on above: Performed By: #### L AB129, LAB15, LAB67 ####Crew Supervisor: VLADIMIR GALLARDO ([phone])[facility] (SB[facility])[address] [place] [address] [place] CO2 [Moles/Vol] 25 mmol/L Normal 22-30 [facility] Comment on above: Performed By: #### L AB129, LAB15, LAB67 ####Crew Supervisor: VLADIMIR GALLARDO ([phone])[facility] CAMPUSBill ELLISCarlitos (SB[facility])[address] Creatinine [Mass/Vol] 0.81 mg/dL Normal 0.52-1.04 [facility] Comment on above: Performed By: #### L AB129, LAB15, LAB67 ####Crew Supervisor: VLADIMIR GALLARDO ([phone])[facility]AMPUSBill [place] (SBHLAB)[address] GLOMERULAR FILTRATION RATE ML/MIN/1.73 SQ M.PREDICTED 73.0 mL/min/1.73m*2 Normal >60.0 [facility] Comment on above: Result Comment: Calc ulation based on the Chronic Kidney Disease Epidemiology Collaboration (CKD-EPI) equation refit without adjustment for race Performed By: #### L AB129, LAB15, LAB67 ####Crew Supervisor: VLADIMIR GALLARDO ([phone])[facility] CAMPUSBill HILLUNITED [facility] (SBHLAB)[address] Glucose [Mass/Vol] 110 mg/dL High 70-100 [facility] Comment on above: Performed By: #### L AB129, LAB15, LAB67 ####Crew Supervisor: VLADIMIR GALLARDO ([phone])[facility] ([facility])[address] [place] [address] [place] Potassium [Moles/Vol] 4.0 mmol/L Normal 3.5-5.1 [facility] Comment on above: Performed By: #### L AB129, LAB15, LAB67 ####Crew Supervisor: VLADIMIR GALLARDO ([phone])[facility] ([facility])[address] Sodium [Moles/Vol] 138 mmol/L Normal 135-145 [facility] Comment on above: Performed By: #### L AB129, LAB15, LAB67 ####Crew Supervisor: VLADIMIR GALLARDO ([phone])[facility] (SBHLAB)[address] Urea nitrogen [Mass/Vol] 23 mg/dL High 7-17 [facility] Comment on above: Performed By: #### L AB129, LAB15, LAB67 ####Crew Supervisor: VLADIMIR WADSWORTHCER ([phone])[facility] SERGIOLOVELACE REGIONAL [facility]ITAL, ROSWELLCarlitos (SBHL[facility])[address] Basic metabolic 1998 panelon 02-04-2023 Anion gap [Moles/Vol] 4 mmol/L 3 - 13 mmol/L [facility] Calcium [Mass/Vol] 9.3 mg/dL 8.4 - 10. 4 mg/dL [facility] Chloride [Moles/Vol] 109 mmol/L High 98 - 10 7 mmol/L [facility] CO2 [Moles/Vol] 25 mmol/L 22 - 30 mmol/L [facility] Creatinine [Mass/Vol] 0.81 mg/dL 0.52 - 1.04 mg/dL [facility] GFR/1.73 sq M.predicted MDRD (S/P/Bld) [Vol rate/Area] 73.0 mL/min/{1.73_m2} - PINF [facility] Comment on above: Calculation based on the Chronic Kidney Disease Epidemiology Collaboration (CKD-EPI) equation refit without adjustment for race Glucose [Mass/Vol] 110 mg/dL High 70 - 100 mg/dL [facility] Interpretation and review of laboratory results Abnormal [facility] Potassium [Moles/Vol] 4.0 mmol/L 3.5 - 5.1 mmol/L [facility] Sodium [Moles/Vol] 138 mmol/L 135 - 145 mmol/L [facility] Urea nitrogen [Mass/Vol] 23 mg/dL High 7 - 17 mg/d L [facility] CARECOORDon 02-04-2023 CARECOORD S/W, follow up LVM for patient ALIX Weber, contact info provided for a call back. Normal [facility] CARECOORD S/W, bedded ED patient Patient in early AM after leaving her home and wandering, found sitting on the side of the road. Patient with Dementia, found here to have a UTI. Family noted possible placement. I did visit patient and Son in ED room to discuss planning. Son indicated his is looking into getting more help in the home. The patient does have [employer] Waiver, Casemanager is Precious Grace ) I did speak with [facility] line to inform of patient admit and inquire on services. The patient currently does not have any aide services but is in process of getting an independent provider assigned. This may take several weeks. The patient did have 11 hrs a week of aide services through [employer] however patient aide quit and they have noone to replace. The patient does go to the [employer] once a week, gets 3 meals a week and has [employer]. I did ask that assigned Casemanager Lang please call to discuss increase in services if able. Son indicated to reach out to his Renetta for planning. Normal [facility] CBC W Auto Differential pane l (Bld)on 02-04-2023 Basophils (Bld) [#/Vol] 0.1 10*3/uL 0.0 - 0.2 10*3/uL [facility] Basophils/100 WBC (Bld) 1.0 % 0.0 - 2.0 % [facility] Eosinophils (Bld) [#/Vol] 0.2 10*3/uL 0. 0 - 0.5 10*3/uL [facility] Eosinophils/100 WBC (Bld) 2.3 % 1.0 - 6.0 % [facility] Erythrocyte distribution width (RBC) [Ratio] 13.5 % 11.5 - 14.5 % [facility] Hematocrit (Bld) [Volume fraction] 37.0 % 35.0 - 47.0 % [facility] Hemoglobin (Bld) [Mass/Vol] 12.2 g/dL 11.7 - 16.0 g/dL [facility] Interpretation and review of laboratory results Normal [facility] Lymphocytes (Bld) [#/Vol] 2.9 10*3/uL 1. 0 - 4.3 10*3/uL [facility] Lymphocytes/100 WBC (Bld) 32.0 % 20 .0 - 40.0 % [facility] MCH (RBC) [Entitic mass] 30.5 pg 26. 0 - 34.0 pg [facility] MCHC (RBC) [Mass/Vol] 32.9 % 32.0 - 36.0 % [facility] MCV (RBC) [Entitic vol] 92.8 fL 80.0 - 98.0 fL [facility] Monocytes (Bld) [#/Vol] 0.8 10*3/uL 0.0 - 0.8 10*3/uL [facility] Monocytes/100 WBC (Bld) 8.3 % 2.0 - 10.0 % [facility] Neutrophils (Bld) [#/Vol] 5.1 10*3/uL 1. 8 - 7.0 10*3/uL [facility] Neutrophils/100 WBC (Bld) 56.4 % 40 .0 - 80.0 % [facility] Nucleated RBC/100 WBC (Bld) [Ratio] 0.0 % [facility] Platelet mean volume (Bld) [Entitic vol] 7.7 fL 7.4 - 12.4 fL [facility] Platelets (Bld) [#/Vol] 236 10*3/uL 140 - 440 10*3/uL [facility] RBC (Bld) [#/Vol] 3.99 10*6/uL 3.8 - 5.20 10*6/uL [facility] WBC (Bld) [#/Vol] 9.1 10*3/uL 3.6 - 10.7 10*3/uL [facility] CBC WITH AUTO DIFFERENTIALon 02-04-2023 Basophils (Bld) [#/Vol] 0.1 10*3/uL Normal 0.0-0.2 [facility] Comment on above: Performed By: #### L [id number] ####Crew Supervisor: VLADIMIR GALLARDO ([phone])[facility] ([facility])[address] [place] [address] Basophils/100 WBC (Bld) 1.0 % Normal 0.0-2.0 S [facility] Comment on above: Performed By: #### L [id number] ####Crew Supervisor: VLADIMIRKRISTIN GALLARDO ([phone])[facility] [place] (SB[facility])[address] Eosinophils (Bld) [#/Vol] 0.2 10*3/uL Normal 0.0-0.5 [facility] Comment on above: Performed By: #### L [id number] ####Crew Supervisor: VLADIMIR SAMI ([phone])[facility] [place] ([facility])[address] Eosinophils/100 WBC (Bld) 2.3 % Normal 1.0-6.0 [facility] Comment on above: Performed By: #### L [id number] ####Crew Supervisor: VLADIMIRKRISTIN GALLARDO ([phone])[facility] [place] ([facility])[address] [place] [address] Erythrocyte distribution width (RBC) [Ratio] 13.5 % Normal 11.5-14.5 [facility] Comment on above: Performed By: #### L [id number] ####Crew Supervisor: VLADIMIRKRISTIN GALLARDO ([phone])[facility] [place] ([facility])[address] ERYTHROCYTE MEAN CORPUSCULAR HEMOGLOBIN CONCENTRATION (G/DL) BY AUTOMATED 32.9 % Normal 32.0-36.0 [facility] Comment on above: Performed By: #### L [id number] ####Crew Supervisor: VLADIMIR SAMI ([phone])[facility] [place] ([facility])[address] Hematocrit (Bld) [Volume fraction] 37.0 % Normal 35.0-47.0 [facility] Comment on above: Performed By: #### L [id number] ####Crew Supervisor: VLADIMIR CORDOVAVARUN ([phone])[facility] [place] ([facility])[address] [place] [address] Hemoglobin (Bld) [Mass/Vol] 12.2 g/dL Normal 11.7-16.0 [facility] Comment on above: Performed By: #### L [id number] ####Crew Supervisor: VLADIMIR SAMI ([phone])[facility] CAMPUSBill [facility] [place] ([facility])[address] Lymphocytes (Bld) [#/Vol] 2.9 10*3/uL Normal 1.0-4.3 [facility] Comment on above: Performed By: #### L [id number] ####Crew Supervisor: VLADIMIR SAMI ([phone])[facility]AMPUSA [facility] [place] ([facility])[address] Lymphocytes/100 WBC (Bld) 32.0 % Normal 20.0-40.0 [facility] Comment on above: Performed By: #### L [id number] ####Crew Supervisor: VLADIMIR GALLARDO ([phone])[facility]AMPUSBill [facility] [place] ([facility])[address] [place] [address] MCH (RBC) [Entitic mass] 30.5 pg Normal 26.0-34.0 [facility] Comment on above: Performed By: #### L [id number] ####Crew Supervisor: VLADIMIR CORDOVABERRYVAISHNAVI ([phone])[facility] CAMPUSBill [facility] ([facility])[address] [place] [address] MCV (RBC) [Entitic vol] 92.8 fL Normal 80.0-98.0 [facility] Comment on above: Performed By: #### L [id number] ####Crew Supervisor: VLADIMIR RALPHVAISHNAVI ([phone])[facility] CAMPUSBill [facility], [place] (SBHL[facility])[address] [place] [address] [place] Monocytes (Bld) [#/Vol] 0.8 10*3/uL Normal 0.0-0.8 [facility] Comment on above: Performed By: #### L [id number] ####Crew Supervisor: VLADIMIR RALPHVAISHNAVI ([phone])[facility]AMPUSBill [facility] [place] ([facility])[address] [place] [address] [place] Monocytes/100 WBC (Bld) 8.3 % Normal 2.0-10.0 [facility] Comment on above: Performed By: #### L [id number] ####Crew Supervisor: VLADIMIR GALLARDO ([phone])[facility] [place] (SB[facility])[address] Neutrophils (Bld) [#/Vol] 5.1 10*3/uL Normal 1.8-7.0 [facility] Comment on above: Performed By: #### L [id number] ####Crew Supervisor: VLADIMIR GALLARDO ([phone])[facility]AMP[facility] [place] ([facility])[address] Neutrophils/100 WBC (Bld) 56.4 % Normal 40.0-80.0 [facility] Comment on above: Performed By: #### L [id number] ####Crew Supervisor: VLADIMIR GALLARDO ([phone])[facility]AMPUSA [place] ([facility])[address] NRBC (PER 100 WBCS) BY AUTOMATED COUNT 0.0 /100 WBCs Normal 0.0-2.0 [facility] Comment on above: Performed By: #### L [id number] ####Crew Supervisor: VLADIMIR GALLARDO ([phone])[facility]AMPUSA [place] ([facility])[address] Platelet mean volume (Bld) [Entitic vol] 7.7 fL Normal 7.4-12.4 [facility] Comment on above: Performed By: #### L [id number] ####Crew Supervisor: VLADIMIR GALLARDO ([phone])[facility]AMP[facility] [place] ([facility])[address] [place] [address] [place] PLATELETS (10*3/UL) IN BLOOD AUTOMATED COUNT 236 10*3/uL Normal 140-440 [facility] Comment on above: Performed By: #### L [id number] ####Crew Supervisor: VLADIMIR GALLARDO ([phone])[facility]AMPUSA [place] ([facility])[address] RBC (Bld) [#/Vol] 3.99 10*6/uL Normal 3.8-5.20 [facility] Comment on above: Performed By: #### L [id number] ####Crew Supervisor: VLADIMIR GALLARDO ([phone])[facility] CAMPUSBill [facility]UNITED [facility] ([facility])[address] [place] [address] WBC (Bld) [#/Vol] 9.1 10*3/uL Normal 3.6-10.7 [facility] Comment on above: Performed By: #### L [id number] ####Crew Supervisor: VLADIMIR GALLARDO ([phone])[facility] CAMPUSBill [facility]UNITED [facility] (SB[facility])[address] [place] [address] COMPLETE URINALYSISon 2022 BACTERIA (#/HPF) IN URINE Few Abnormal Negative [facility] Comment on above: Performed By: #### L [id number] #### Crew Supervisor: MARION CARMEN ([phone]) [facility]) [address] [place] [address] BILIRUBIN, TOTAL PRESENCE IN URINE Negative Normal Negative [facility] Comment on above: Performed By: #### L [id number] #### Crew Supervisor: MARION CARMEN ([phone]) [facility]) [address] [place] [address] Clarity (U) Turbid Abnormal Clear [facility] Comment on above: Performed By: #### L [id number] #### Crew Supervisor: MARION CARMEN ([phone]) [facility]) [address] [place] [address] Color (U) Dark Yellow Abnormal Lt. Yellow [facility] Comment on above: Performed By: #### L [id number] #### Crew Supervisor: MARION [phone]) [facility]) [address] [place] [address] GLUCOSE (MG/DL) IN URINE Normal Normal Normal (<70 ) [facility] Comment on above: Performed By: #### L [id number] #### Crew Supervisor: MARION [phone]) [facility]) [address] [place] [address] HEMOGLOBIN PRESENCE IN URINE Negative Normal Negative [facility] Comment on above: Performed By: #### L [id number] #### Crew Supervisor: MARION CARMEN ([phone]) [facility]) [address] [place] [address] HYALINE CASTS (#/LPF) IN URINE SEDIMENT BY MICROSCOPY 6-10 Abnormal Negative [facility] Comment on above: Performed By: #### L [id number] #### Crew Supervisor: MARION CARMEN ([phone]) [facility] ([facility]) [address] [place] [address] Ketones Ql (U) Negative Normal Negative [facility] Comment on above: Performed By: #### L [id number] #### Crew Supervisor: MARION CARMEN ([phone]) [facility]) [address] [place] [address] LEUKOCYTE ESTERASE PRESENCE IN URINE BY TEST STRIP 500 Soni/uL Abnormal Negative [facility] Comment on above: Performed By: #### L [id number] #### Crew Supervisor: MARION CARMEN ([phone]) [facility]) [address] [place] [address] [place] MUCUS (#/LPF) IN URINE SEDIMENT Few Normal Negative [facility] Comment on above: Performed By: #### L [id number] #### Crew Supervisor: MARION CARMEN ([phone]) [facility]) [address] [place] [address] [place] NITRITE PRESENCE IN URINE Negative Normal Negative [facility] Comment on above: Performed By: #### L [id number] #### Crew Supervisor: MARION CARMEN ([phone]) [facility]) [address] [place] [address] pH (U) 5.5 [pH] Normal 5.0-8.0 [facility] Comment on above: Performed By: #### L [id number] #### Crew Supervisor: MARION CARMEN ([phone]) [facility]) [address] [place] [address] [place] Protein (U) [Mass/Vol] Negative Normal Negative [facility] Comment on above: Performed By: #### L [id number] #### Crew Supervisor: MARION CARMEN ([phone]) [facility]) [address] [place] [address] RBC (#/HPF) IN URINE SEDIMENT 3-5 Abnormal 0-2 [facility] Comment on above: Performed By: #### L [id number] #### Crew Supervisor: MARION CARMEN ([phone]) [facility]) [address] [place] [address] Specific gravity (U) [Rel density] 1.020 Normal 1.005-1.030 [facility] Comment on above: Performed By: #### L [id number] #### Crew Supervisor: MARION CARMEN ([phone]) [facility]) [address] [place] [address] SQUAMOUS EPITHELIAL CELLS (#/HPF) IN URINE SEDIMENT 11-25 Abnormal 3-5 [facility] Comment on above: Performed By: #### L [id number] #### Crew Supervisor: MARION CARMEN ([phone]) [facility]) [address] [place] [address] UROBILINOGEN (MG/DL) IN URINE Normal Normal Normal (0-1) [facility] Comment on above: Performed By: #### L [id number] #### Crew Supervisor: MARION CARMEN ([phone]) [facility]) [address] [place] [address] WBC (LEUKOCYTE) (#/HPF) IN URINE SEDIMENT 26-50 Abnormal 0-5 [facility] Comment on above: Performed By: #### L [id number] #### Crew Supervisor: MARION CARMEN ([phone]) [facility]) [address] [place] [address] Cobalamin (Vitamin B12) [Mas s/Vol]on 02-04-2023 Interpretation and review of laboratory results Normal [facility] Consulton 02-04-2023 Consult Attestation with edits by Regina Yu MD at 02/04/2023 2:55 PM (Updated) Attending Supervising Physician?s Attestation Statement I saw and evaluated the patient. I discussed the findings and plans with Geriatric fellow and agree as documented in his note. Changes and updates in blue. Albina Brown is an 82 year old female with PMH of anxiety, hld, breast cancer (on Tamoxifen, follows with Dr Carlson), acid reflux who presented to hospital after being found wandering outside. This occurred twice recently. She is noted to be very forgetful - family reports long-standing memory issues. Family reports she had been living alone and family would come over to her house to help with taking her medications. Patient's recently in early January. She does not remember that he Reviewed H and P and ER notes CBC: wnl BMP: BUN 23 Tsh within normal limits Vitamin b12 within normal limits Patient pleasantly forgetful. Does not remember why she is in the hospital. Poor insight overall. A/P Dementia -likely Alzheimer's Disease -needs 10/11 supervision going forward - discussed this with son -will consult social work -tsh and vitamin b12 within normal limits -continue namenda Anxiety -she is on celexa 40 mg daily. The maximum recommended dose of celexa is geriatric population is 20 mg daily due to risk of qtc prolongation. Lower to 30 mg daily x 14 days then 20 mg daily thereafter At risk for delirium -recommend delirium protocol [facility] Geriatric Medicine Inpatient Consult Service Admission Date: 02/04/2023 Admission Status: OBSERVATION Chief Complaint: Confusion, wandering Reason for Appointment Geriatrics consulted for Dementia Assessment/Plan Principal Problem: Advancing dementia (HCC) Cognitive decline - patient scored 14/30 on MMSE today - 3-4 year history of memory problems that have been gradually worsening over time. Concerning for Alzheimer's dementia - continue memantine - takes namenda XR 21 mg at home. Since XR version is not available in hospital, will give Namenda IR 10 mg in AM and 5 mg in PM - check TSH, B12, head CT - social work consult to help with either assisted living placement vs home resources, patient will need 24 hour supervision due to wandering, medication compliance - if patient returns home, recommend outpatient follow up with [facility] 4 weeks after return home. History of falls, debility - recommend PT/OT consult - check vitamin D level - fall precautions - May have had fall recently, checking ct head as noted above Anxiety - patient taking citalopram 40 mg daily, recommended max dose is 20 mg for patients over 60. - recommend decreasing dose for 30 mg for 2 weeks then decreasing to 20 mg daily At Risk for Delirium -Risk factors include: hospitalization, cognitive decline, possible UTI and falls -Melatonin nightly prn insomnia -Delirium Protocol -Avoid sedating/anticholine rgic medications -Encourage family visits -Encourage sleep hygiene -Minimize barriers to nutrition -Optimize sensory input and access to assistive devices where indicated -Encourage time up in chair - including at meals - as able -Unless contraindicated, encourage regular ambulation with assistance -D/c Cespedes, restraints, IV lines, as able Subjective: HPI 82 y.o. year-old female presented from home for confusion and wandering. Patient has a history of memory problems, now living alone since her 2 weeks ago. She has had 2 episodes in the past few days during which she left her home and was found wandering, recently found lying on the side of the road at 1:00 am. Patient denies falling, but her son is concerned that she actually did fall. Patient denied any pain or other symptoms today. Geriatrics ED screen positive for: memory loss, lives alone/needs help at home, falls or trouble walking, and takes 5 or more medicines daily Conversation with caregiver: son. Ted, and behwfpps-ey-uuy Renetta - patient's 2 weeks ago, patient not fully aware and keeps saying that she needs to get home to see her . - she has been having worsening memory problems over the past 3-4 years - cameras in the home and outside, patient needs to be called multiple times a day to be reminded to eat meals, take medications, and go to bed - they have hired an aid to come help the patient 3 days a week, recently approved for 11 hours more through [facility] Advance Care Planning Healthcare Power ofAttorney: Yes Financial Power of Tongue Carrier: Yes Living Will:Yes Code Status: DNR-CCA, ok for intubation and ICU transfer No Known Allergies Current Facility-Administere d Medications: acetaminophen (T (more content not included)... [facility] ED Nursing Noteon 02-04-2023 ED Nursing Note Pt ambulated to bathroom well. Unable to urinate for UA at this time. Yessy Yeh RN 02/04/23 021 [facility] ED Nursing Note Bed: 13 Expected date: Expected time: Means of arrival: Comments: Jeff Montero RN 02/04/23 0133 [facility] ED Nursing Note Pt was brought in by EMS after being found on the side of the road by family. Pt has a hx of dementia and is normally A&O x2. Per family, this is the second time pt has wandered out of her home this week. Pt states that she was "just going for a stroll" and doesn't know why she is here." Pt is A&O x3 upon assessment. Able to identify where she is, her name, and the year. Per the patient, she is experiencing no pain at all, pt is able to urinate okay. Last urinated around 7:30pm 02/03/2023. Pt states her last bm was 02/02/2023. Pt denies hitting her head and any LOC. Per pt, she lives at home with her . Per the daughter (at bedside) her has recently 01/21. Pt tends to forget her has passed, according to daughter. [facility] ED Provider Noteon ED Provider Note [facility] ED EMERGENCY DEPARTMENT ENCOUNTER Pt Name: Albina Brown Birthdate 1940 Date of evaluation: 02/04/2023 Provider: Ana Seymour MD CHIEF COMPLAINT Chief Complaint Patient presents with Dementia HISTORY OF PRESENT ILLNESS (Location/Symptom, Timing/Onset, Context/Setting, Quality, Duration, Modifying Factors, Severity) Note limiting factors. I wore a surgical mask for the entirety of this encounter. Albina Brown is a 82 y.o. female with a past medical history of dementia, breast cancer, hyperlipidemia, anxiety presenting after being found wandering outside on the street. Her daughter saw her wandering on the ring camera and called police and she was ultimately located. Patient self says that she just wanted to go for a walk. She also believes that her is still alive unfortunately he on the fourth of this month but she does not remember. She complains of no chest pain, nausea, vomiting, shortness of breath or abdominal pain currently though I question the reliability of her history. Her daughter arrives and states patient lives alone. The ring camera woke her up and she saw her leaving and was able to get there by the time patient had wandered completely down the street and around the corner. She lives about 10 minutes away from her law. She states that this is the second time that she has gotten out like this but they did not take her to the hospital this time. She was reportedly found laying on her side, but patient states she does not remember falling really and is in no pain. She was lying propped up on her left side but did not appear to have struck her head and was not otherwise acting abnormally. We had shared discussion regarding the safety of patient living alone in the future. She states that been working very hard to get her aunt (patient's sister) to come stay with her and live with her with also 11 hours of an Medicare approved home health aide per week but this has not been arranged yet. Her who is the patient's biological son will be here soon and they would like to wait for the results of the urine before making a decision, but I highly recommend admission for evaluation for consideration of placement in this case. Past Medical history reviewed. REVIEW OF SYSTEMS Negative except for above HPI Review of Systems PAST MEDICAL HISTORY Past Medical History: Diagnosis Date Acid reflux Anxiety Breast cancer (HCC) Hyperlipidemia SURGICAL HISTORY Past Surgical History: Procedure Laterality Date BREAST BIOPSY BREAST LUMPECTOMY 11/21/2019 CATARACT EXTRACTION COLONOSCOPY TUBAL LIGATION WISDOM TOOTH EXTRACTION CURRENT MEDICATIONS Previous Medications ASCORBIC ACID (VITAMIN C) 500 MG CHEWABLE TABLET Chew 500 mg in the morning. ASPIRIN 81 MG CHEWABLE TABLET Chew 81 mg in the morning. CHOLECALCIFEROL (VITAMIN D-3) 25 MCG (1000 UT) CAPSULE Take 1 capsule by mouth in the morning. CITALOPRAM (CELEXA) 20 MG TABLET DONEPEZIL (ARICEPT) 5 MG TABLET Take 10 mg by mouth before bedtime. MECLIZINE (ANTIVERT) 25 MG TABLET Take 1 tablet by mouth 3 times daily as needed. MISC NATURAL PRODUCTS (HERBAL ENERGY COMPLEX PO) Take by mouth daily. [place]- herbal MULTIPLE VITAMIN (MULTIVITAMIN ADULT PO) Take 1 tablet by mouth in the morning. OMEPRAZOLE (PRILOSEC) [address] CAPSULE TAMOXIFEN (NOLVADEX) 20 MG TABLET Take 1 tablet (20 mg total) by mouth daily. ALLERGIES Patient has no known allergies. FAMILY HISTORY No family history on file. SOCIAL HISTORY Social History Socioeconomic History Marital status: Tobacco Use Smoking status: Never Smokeless tobacco: Never SCREENINGS PHYSICAL EXAM (up to 7 for level 4, 8 or more for level 5) @EDTRIAGEVSS@ Physical Exam Vitals and nursing note reviewed. Constitutional: General: She is not in acute distress. Appearance: Normal appearance. HENT: Head: Normocephalic and atraumatic. Nose: Nose normal. Eyes: Conjunctiva/sclera: Conjunctivae normal. Cardiovascular: Rate and Rhythm: Normal rate. Pulmonary: Effort: Pulmonary effort is normal. No respiratory distress. Abdominal: General: Abdomen is flat. There is no distension. Skin: General: Skin is warm and dry. Capillary Refill: Capillary refill takes less than 2 seconds. Neurological: Mental Status: She is alert. Comments: Facial movements symmetric, no facial droop, PERRLA, IOMI, moves all extremities equally and symmetrically, speech is fluent and clear, ambulates without difficulty. Psychiatric: Behavior: Behavior normal. EMERGENCY DEPARTMENT COURSE and DIFFERENTIAL DIAGNOSIS/MDM: Vitals: Vitals: 02/04/23 0142 BP: (!) 155/91 BP Location: Right arm Patient Position: Lying Pulse: 87 Resp: 16 Temp: 36.6 ?C (97.9 ?F) TempSrc: Oral SpO2: 98% Medications sodium chloride 0.9 % bolus 500 mL (0 mL IntraVENous Stopped 02/04/23 0335) (more content not included)... Normal [facility] IDNon 02-04-2023 IDN Problem: Pain - Adult Goal: Verbalizes/displays adequate comfort level or baseline comfort level Outcome: Progressing Problem: Safety - Adult Goal: Free from fall injury Outcome: Progressing Problem: Discharge Planning Goal: Discharge to home or other facility with appropriate resources Outcome: Progressing Normal [facility] Laboratory - Chemistry and C hemistry - challengeon 02-04-2023 25-hydroxyvitamin D3 [Mass/Vol] 48 ng/mL 30 - 100 ng/mL [facility] Cobalamin (Vitamin B12) [Mass/Vol] 911 pg/mL 239 - 931 pg/mL [facility] TSH Qn 4.168 m[IU]/L [facility] h Progress Noteon 02-04-2023 Progress Note Seen and examined. Chart/labs/tests reviewed. D/w pt and son at bedside. D/w Geriatrics via secure chat. Please see H&P done by Dr Farmer earlier today for complete details. Normal [facility] THYROID STIMULATING HORMONEo n 02-04-2023 THYROID STIMULATING HORMONE 4.168 uIU/mL Normal 0.465-4.680 [facility] Comment on above: Performed By: #### L AB129, LAB15, LAB67 ####Crew Supervisor: VLADIMIR GALLARDO ([phone])[facility] ([facility])[address] [place] [address] TSH Qnon 02-04-2023 Interpretation and review of laboratory results Normal [facility] URINE CULTUREon 02-04-2023 Bacteria identified Cx Nom (U) URINE CULTURE Reference Normal urogenital sonal present [ S = SUSCEPTIBLE R = RESISTANT I = INTERMEDIATE S-DD = Susceptible-dose dependent NS = Non-susceptible NO = No Interpretation ] Normal [facility] Comment on above: Performed By: #### L [id number] #### Crew Supervisor: MARION CARMEN ([id number]) [facility] ([facility]) [address] [place] [address] Urinalysis complete panel (U )Ordered By: Qiana Leung on 02-04-2023 Bacteria LM.HPF (Urine sed) [#/Area] Few Abnormal Negative /HPF [facility] Bilirubin Ql (U) Negative Negative mg/dL [facility] Clarity (U) Turbid Abnormal Clear [facility] Color (U) Dark Yellow Abnormal Lt. Yellow [facility] Epithelial cells.squamous LM.HPF (Urine sed) [#/Area] 11-25 Abnormal [facility] Glucose Ql (U) Normal Normal (<70) mg/dL [facility] Hemoglobin Ql (U) Negative Negative mg/dL [facility] Hyaline casts Auto (Urine sed) [#/Area] 6-10 Abnormal Negative /LPF [facility] Interpretation and review of laboratory results Abnormal [facility] th Ketones (U) [Mass/Vol] Negative Negat jacquie mg/dL [facility] Leukocyte esterase Test strip Ql (U) 500 Abnormal Negative Soni/uL [facility] Mucus LM.HPF (Urine sed) [#/Area] Few Negative /LPF [facility] Nitrite Ql (U) Negative Negative [facility] th pH (U) 5.5 [pH] 5.0 - 8.0 pH [facility] Protein (U) [Mass/Vol] Negative Negat jacquie mg/dL [facility] RBC LM.HPF (Urine sed) [#/Area] 3-5 Abnormal [facility] Specific gravity (U) [Rel density] 1.020 1.005 - 1.030 [facility] Urobilinogen (U) [Mass/Vol] Normal Normal (0-1) mg/dL [facility] WBC LM.HPF (Urine sed) [#/Area] 26-50 Abnormal [facility] VITAMIN B12on 02-04-2023 Cobalamin (Vitamin B12) [Mass/Vol] 911 pg/mL Normal 239-931 [facility] Comment on above: Performed By: #### L AB129, LAB15, LAB67 ####Crew Supervisor: VLADIMIR GALLARDO ([phone])[facility] ([facility])[address] [place] [address] VITAMIN D DEFICIENCY SCREENI NG (VIT D 25)on 02-04-2023 VIT D 25-OH, TOTAL 48 ng/mL Normal 30-100 [facility] Comment on above: Result Comment: SAYRA Spencer COMMENTS: Therapy is based on measurement of Total 25-OHD with the following classification levels: Less than 20 ng/mL: Indicative of Vit D deficiency 20-30 ng/mL: Suggests Vit D insufficiency Optimal: Greater than or equal to 30 ng/mL Test performed by Infoharmoni Competitive Immunoassay, measuring Total Vitamin D, not individual fractions. Performed By: #### L [id number] ####Crew Supervisor: VLADIMIR GALLARDO ([phone])[facility] ([facility])[address] [place] [address] CNOV 12-12-2022 CNOV Office Visit (FPDOYL) ALBINA BROWN ([id number]) 1940 F Date Time Provider Department 12/12/22 4:15 PM MADYSON COLLINS FPDOYL During your visit today, we recorded the following information about you: Temperature Pulse Blood pressure Weight 98.3 degrees 65/minute 122/70 76.7 kg Height 1.6 m Madyson Collins DO 12/16/2022 8:43 PM Signed [facility] [place] Madyson Collins DO [address] [place] [address] Date of Evaluation: 12/12/2022 Patient Name: Albina Brown : 1940 Chief Complaint: Patient presents with: Memory Loss Leg Edema: Mostly right, some left Incontinence: urinary Nursing Intake: There are no exam notes on file for this visit. Subjective Ms. Brown is a 82 year old female who presents with the following complaint(s): The history is provided by the patient and a relative. 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 Hypercholesterolemia This is a chronic problem. The current episode started more than 1 year ago. Pertinent negatives include no chest pain or shortness of breath. Per daughter in law patient has been having more memory loss with daily routine. Would like to discuss switching medications. Review of Systems Constitutional: Negative for fatigue and unexpected weight change. HENT: Negative for nosebleeds. Eyes: Negative for redness and visual disturbance. Respiratory: Negative for apnea, cough and shortness of breath. Cardiovascular: Negative for chest pain, palpitations and leg swelling. Genitourinary: Positive for frequency (with urianry incontinence). Negative for hematuria. Neurological: Negative for dizziness, weakness, light-headedness, numbness and headaches. Memory loss Hematological: Does not bruise/bleed easily. Psychiatric/Behavior al: The patient is not nervous/anxious. History reviewed. No pertinent past medical history. PAST SURGICAL HISTORY Procedure Laterality Date BREAST SURGERY 2019 Breast cancer- left FAMILY HISTORY Problem Relation Age of Onset Hypertension Mother Cancer Father Cancer Brother Social History Tobacco Use Smoking status: Former Types: Cigarettes Smokeless tobacco: Never Vaping Use Vaping Use: Never used Substance Use Topics Alcohol use: Not Currently Drug use: Never Current Outpatient Medications Medication Sig omeprazole (PRILOSEC) 20 mg capsule TAKE 1 CAPSULE BY MOUTH ONCE DAILY citalopram (CELEXA) 40 mg tablet TAKE 1 TABLET BY MOUTH EVERY DAY donepezil (ARICEPT) 10 mg tablet Take 1 tablet by mouth daily at bedtime. meclizine (ANTIVERT) 25 mg tab Take 1 tablet by mouth three times daily as needed. multivitamin (MULTIPLE VITAMINS ORAL) Take 1 tablet by mouth once daily. (CENTRUM SILVER ADULT 50+ PO) ascorbic acid, vitamin C, (VITAMIN C) 500 mg tablet Take 500 mg by mouth. aspirin 81 mg chewable tablet Take 81 mg by mouth. Cholecalciferol, Vitamin D3, 25 mcg (1,000 unit) cap Take 1 capsule by mouth. tamoxifen (NOLVADEX) 20 mg tablet Take 20 mg by mouth once daily. ZINC ACETATE ORAL Take 50 mg by mouth once daily. vitamin B complex (B COMPLEX-VITAMIN B12 ORAL) Take 1,000 mg by mouth once daily. memantine XR (NAMENDA XR) 21 mg CSpX Take 1 capsule by mouth once daily. tolterodine ER (DETROL LA) 2 mg 24 hr capsule Take 1 capsule by mouth once daily. omeprazole (PRILOSEC) 20 mg capsule (Patient not taking: Reported on 12/12/2022) donepezil (ARICEPT) 23 mg tablet Take 1 tablet by mouth daily at bedtime. (Patient not taking: Reported on 12/12/2022) donepezil (ARICEPT) 5 mg tablet Take 1 tablet by mouth daily at bedtime. (Patient not taking: Reported on 12/12/2022) simvastatin (ZOCOR) 20 mg tablet Take 20 mg by mouth daily at bedtime. (Patient not taking: Reported on 07/04/2022) No current facility-administere d medications for this visit. I have confirmed and edited as necessary the past medical, family and social histories, HPI, and ROS obtained by others. Objective BP 122/70 Pulse 65 Temp 98.3 Ht 5' 3" (1.60m) Wt 169 lb (76.7kg) SpO2 96% BMI 29.94 kg/(m2). Physical Exam Vitals and nursing note reviewed. Constitutional: General: She is not in acute distress. Appearance: Normal appearance. She is well-developed. She is not ill-appearing. HENT: Head: Normocephalic. Right Ear: Tympanic membrane, ear canal and external ear normal. There is no impacted cerumen. Left Ear: Tympanic membrane, ear canal and external ear normal. There is no impacted cerumen. Nose: Nose normal. Mouth/Throat: Mouth: Mucous membranes are moist. Pharynx: Oropharynx is clear. Uvula midline. No oropharyngeal exudate or posterior oropharyngeal erythema. Eyes: General: Lids are normal. Vision grossly intact. Gaze aligned appropriately. No scleral icterus. (more content not included)... Normal [facility] MG Mammogram Digital Diagnos tic Righton 01-06-2022 MG Mammogram Digital Diagnostic Right Patient Name: ALBINA BROWN Mammography ACCESSION EXAM DATE/TIME PROCEDURE ORDERING PROVIDER [id number] 01/06/2022 14:15 EDT MG Mammogram Digital MD MIGUELANGEL, CHUCHO Diagnostic Right CPT code 97080 Reason For Exam (MG Mammogram Digital Diagnostic Right) Post bx, clip check Report This report was read in conjunction with US BX Breast 1St Lesion Image RT Acession [id number]. Final Signed Date and Time: 02/14/2022 7:11 pm Signed by: BORING MACHINE OPERATOR DOUBLE END, SYSTEM Transcribed by: SUZIE [facility] Surgical Pathologyon 022 Surgical Pathology [id number] [facility] PATHOLOGY AND LABORATORY MEDICINE [address] [place] [address] Fax - FINAL SURGICAL PATHOLOGY REPORT NAME: ALBINA BROWN : 1940 81 Y F BILLING NO.: [id number] LOCATION: [facility] PROCEDURE 01/06/2022 DATE: SURGEON: CHUCHO MEANS MD RECEIVED 01/06/2022 DATE: ATTENDING: CHUCHO MEANS MD REPORT DATE: 01/10/2022 COPIES TO: JUMA CHIN MD DIAGNOSIS: RIGHT BREAST AT 3:00, NEEDLE CORE BIOPSY - ATYPICAL PAPILLARY LESION COMMENT: The specimen consists of a papillary lesion, with intact myoepithelial staining for p63 and myosin, that demonstrates monotony and atypia with e-cadherin positivity and a lack of CK 5/6 staining. This may represent a papilloma with atypical hyperplasia or ductal carcinoma in situ, best classified on excision. SMT/SMT Intradepartmental Consultation: TOBIAS ZHENG M.D.; Signature> Laura HERNANDEZ M.D. CLINICAL INFORMATION: Right breast mass SPECIMEN: BREAST NEEDLE CORE BIOPSY GROSS DESCRIPTION: Received in formalin labeled "right breast 3:00, 4 cm from nipple" obtained at 13:25 and placed into formalin at 13:26 are two elongated segments of yellow to red soft tissue cores each measuring 0.2 cm in diameter by 0.6 cm in length. Both submitted in one cassette. [facility] Disclaimer: The following statement applies to all immunohistochemistry , in situ hybridization, molecular studies, and immunofluorescence testing. The use of one or more reagents in the above tests is regulated as an analyte specific reagent (ASR). These tests were developed and their performance characteristics determined by the clinical laboratories of [facility]. They have not been cleared by the US Food and Drug Administration (FDA). The FDA has determined that such clearance or approval is not necessary. All the above immunostains were performed on paraffin embedded tissue. Appropriate positive and negative controls (where applicable) were run in parallel with the patient's specimen; these controls showed expected staining pattern, with acceptable intensity of staining. Immunohistochemical assays have not been validated on decalcified tissues. Results should be interpreted with caution given the raised possibility of false negativity on decalcified specimens[place] [address]. DEPARTMENT OF PATHOLOGY AND LABORATORY MEDICINE [place], [place] [address] [email or web address] [facility] US BX Breast 1st Lesion Imag e RTon 01-06-2022 US BX Breast 1st Lesion Image RT Patient Name: ALBINA BROWN Ultrasound ACCESSION EXAM DATE/TIME PROCEDURE ORDERING PROVIDER [id number] 01/06/2022 14:14 EDT US BX Breast 1st Lesion MD MIGUELANGEL, CHUCHO Image RT CPT code 49668 A4648 Reason For Exam (US BX Breast 1st Lesion Image RT) Category 4 right breast mass Addendum ADDENDUM: This addendum is being provided to report the pathology results and recommendation for the previous report. PROCEDURE: US BX BREAST 1ST LESION IMAGE RT: RIGHT BREAST - 2021 - REASON FOR EXAMINATION: Suspicious right breast mass. CONSENT: The patient presents for ultrasound-guided core biopsy of the right breast. Prior to the procedure red rules were performed which included patient name, date of , and procedure type. Risks, benefits and alternatives were explained to the patient and informed consent was obtained. The patient's prior imaging dated 12/25/2021 was reviewed. PROCEDURE: An audible time out was performed. I washed my hands and wore sterile gloves. The patient was scanned and the lesion in the right breast at the 3:00 position 4 cm from the nipple was redemonstrated. The patient was prepped in the usual sterile fashion. 2 mL of 1% Lidocaine was administered for local anesthesia. A 14-gauge BARD core biopsy device was advanced into the lesion with ultrasound guidance. 2 core specimens were obtained. Following the procedure a [place]ark X- shape tissue marker was deployed at the site of biopsy. Hemostasis was obtained by holding manual pressure. The patient tolerated the procedure without immediate complications. Home-going instructions were given and the patient was discharged in good condition. IMPRESSION: Technically successful US guided biopsy of the right breast mass at the 3:00 position 4 cm from the nipple. . MAMMOGRAM: Following the procedure the patient was transported to the mammography suite and a 2D digital mammogram Ultrasound Addendum was performed demonstrating satisfactory placement of the tissue marker at the site of biopsy. Markings on images: BB's = Nipples; skin lesions Open fond du lac = Palpable Line = Scar Report Dictated on PATHOLOGY RESULTS: HIGH RISK Imaging and pathology are concordant. Atypical papillary lesion. RECOMMENDATION: Excisional biopsy of the right breast. Final Addendum Signed Date and Time: 01/13/2022 9:26 am Signed by: MD CHIN PATRICK Report PROCEDURE: US BX BREAST 1ST LESION IMAGE RT: RIGHT BREAST - 2021 - REASON FOR EXAMINATION: Suspicious right breast mass. CONSENT: The patient presents for ultrasound-guided core biopsy of the right breast. Prior to the procedure red rules were performed which included patient name, date of , and procedure type. Risks, benefits and alternatives were explained to the patient and informed consent was obtained. The patient's prior imaging dated 12/25/2021 was reviewed. PROCEDURE: An audible time out was performed. I washed my hands and wore sterile gloves. The patient was scanned and the lesion in the right breast at the 3:00 position 4 cm from the nipple was redemonstrated. The patient was prepped in the usual sterile fashion. 2 mL of 1% Lidocaine was administered for local anesthesia. A 14-gauge BARD core biopsy device was advanced into the lesion with ultrasound guidance. 2 core specimens were obtained. Following the procedure a Tumark X- shape tissue marker was deployed at the site of biopsy. Hemostasis was obtained by holding manual pressure. The patient tolerated the procedure without immediate complications. Home-going instructions were given and the patient was discharged in good condition. IMPRESSION: Technically successful US guided biopsy of the right breast mass at the 3:00 position 4 cm from the nipple. . MAMMOGRAM: Following the procedure the patient was transported to the mammography suite and a 2D digital mammogram was performed demonstrating satisfactory placement of the tissue marker at the site of biopsy. Ultrasound Report Markings on images: BB's = Nipples; skin lesions Open fond du lac = Palpable Line = Scar Report Dictated on PATHOLOGY RESULTS: PENDING Final Signed Date and Time: 01/06/2022 2:25 pm Signed by: MD CHIN PATRICK Report last revised on 01/13/2022 09:26 EDT by MD CHIN PATRICK [facility] HILDA DIGITAL DIAGNOSTIC UNILATERAL RIGHTon 12-25-2021 [facility]: [id number] ACCESSION EXAM DATE/TIME PROCEDURE ORDERING PROVIDER [id number] 12/25/2021 11:49 EDT MG Breast Tomosynthesis MD CARLSON BRADLEY Diagnostic Right ОЛЬГА CPT code 10946 96919 Reason For Exam (MG Breast Tomosynthesis Diagnostic Right) Abnormal mammogram Report TIME SINCE LAST MAMMOGRAM: Last mammogram was performed 1 month ago. REASON FOR EXAM: addl eval requested from prior study. PROCEDURE: MG BREAST TOMOSYNTHESIS RIGHT: 2021 - 2D/3D Procedure 3D views: Spot compression CC, spot compression MLO, and ML view(s) were taken of the right breast. 2D views: Spot compression CC, spot compression MLO, and ML view(s) were taken of the right breast. Prior study comparison: November 26, 2021, bilateral MG breast tomosynthesis bl scr performed at [facility]. November 21, 2020, bilateral MG breast tomosynthesis bl performed at [facility]. November 21, 2019, left breast MG mammogram digital diagnostic left performed at [facility]. September 13, 2019, bilateral MG breast tomosynthesis bl scr performed at [facility]. TISSUE DENSITY: BIRADS B - There are scattered fibroglandular densities. . FINDINGS: The patient was recalled from screening mammogram on 11/26/2021 for right breast mass. MAMMOGRAPHY An equal density mass is again seen in the central medial right breast at middle depth. ULTRASOUND: Ultrasound imaging of the right breast and axilla was performed by a registered crib attendant with Doppler. At the 3:00 position 4 cm from the nipple an irregular hypoechoic mass with peripheral vascularity is seen measuring 0.4 x 0.3 x 0.5 cm. Findings correspond to the mammographic mass. Scanning of the right axilla demonstrates three morphologically normal-appearing lymph nodes. Markings on images: Mammography Report BB's = Nipples; skin lesions Open fond du lac = Palpable Line = Scar IMPRESSION: Suspicious right breast mass at the 3:00 position 4 cm from the nipple without axillary lymphadenopathy. Surgical consultation and ultrasound guided core needle biopsy is recommended. Findings were discussed with the patient by Dr. Chin at the time of this dictation. US BREAST LIMITED RIGHT: 2021 - 2D digital mammography and tomosynthesis imaging were performed and reviewed with CAD. ASSESSMENT: Category 4 Suspicious (Overall) RECOMMENDATION: Ultrasound guided core biopsy and surgical consultation of the right breast. . Report Dictated on --- Final --- Signed Date and Time: 12/25/2021 12:54 pm Signed by: MD CHEL, [facility] Result, Unknown Provider - 12/25/2021 Patient Name: ALBINA BROWN Mammography ACCESSION EXAM DATE/TIME PROCEDURE ORDERING PROVIDER [id number] 12/25/2021 11:49 EDT MG Breast Tomosynthesis MD ALDO, BRIAN Diagnostic Right ОЛЬГА CPT code 94363 65584 Reason For Exam (MG Breast Tomosynthesis Diagnostic Right) Abnormal mammogram Report TIME SINCE LAST MAMMOGRAM: Last mammogram was performed 1 month ago. REASON FOR EXAM: addl eval requested from prior study. PROCEDURE: MG BREAST TOMOSYNTHESIS RIGHT: 2021 - 2D/3D Procedure 3D views: Spot compression CC, spot compression MLO, and ML view(s) were taken of the right breast. 2D views: Spot compression CC, spot compression MLO, and ML view(s) were taken of the right breast. Prior study comparison: November 26, 2021, bilateral MG breast tomosynthesis bl scr performed at [facility]. November 21, 2020, bilateral MG breast tomosynthesis bl performed at [facility]. November 21, 2019, left breast MG mammogram digital diagnostic left performed at [facility]. September 13, 2019, bilateral MG breast tomosynthesis bl scr performed at [facility]. TISSUE DENSITY: BIRADS B - There are scattered fibroglandular densities. . FINDINGS: The patient was recalled from screening mammogram on 11/26/2021 for right breast mass. MAMMOGRAPHY An equal density mass is again seen in the central medial right breast at middle depth. ULTRASOUND: Ultrasound imaging of the right breast and axilla was performed by a registered crib attendant with Doppler. At the 3:00 position 4 cm from the nipple an irregular hypoechoic mass with peripheral vascularity is seen measuring 0.4 x 0.3 x 0.5 cm. Findings correspond to the mammographic mass. Scanning of the right axilla demonstrates three morphologically normal-appearing lymph nodes. Markings on images: Mammography Report BB's = Nipples; skin lesions Open fond du lac = Palpable Line = Scar IMPRESSION: Suspicious right breast mass at the 3:00 position 4 cm from the nipple without axillary lymphadenopathy. Surgical consultation and ultrasound guided core needle biopsy is recommended. Findings were discussed with the patient by Dr. Chin at the time of this dictation. US BREAST LIMITED RIGHT: 2021 - 2D digital mammography and tomosynthesis imaging were performed and reviewed with CAD. ASSESSMENT: Category 4 Suspicious (Overall) RECOMMENDATION: Ultrasound guided core biopsy and surgical consultation of the right breast. . Report Dictated on --- Final --- Signed Date and Time: 12/25/2021 12:54 pm Signed by: MD CHIN PATRICK [facility] Work Phone: Radiology Study observation (narrative) [facility] Work Phone: [place] [facility]IL[facility] DIGITAL DIAGNOSTIC UNILATERAL RIGHTOrdered By: Unknown Result on 12-25-2021 [facility] MG Breast Tomosynthesis Diag nostic Righton 12-25-2021 MG Breast Tomosynthesis Diagnostic Right Patient Name: ALBINA BROWN Mammography ACCESSION EXAM DATE/TIME PROCEDURE ORDERING PROVIDER [id number] 12/25/2021 11:49 EDT MG Breast Tomosynthesis MD ALDO, BRIAN Diagnostic Right ОЛЬГА CPT code 30316 71815 Reason For Exam (MG Breast Tomosynthesis Diagnostic Right) Abnormal mammogram Report TIME SINCE LAST MAMMOGRAM: Last mammogram was performed 1 month ago. REASON FOR EXAM: addl eval requested from prior study. PROCEDURE: MG BREAST TOMOSYNTHESIS RIGHT: 2021 - 2D/3D Procedure 3D views: Spot compression CC, spot compression MLO, and ML view(s) were taken of the right breast. 2D views: Spot compression CC, spot compression MLO, and ML view(s) were taken of the right breast. Prior study comparison: November 26, 2021, bilateral MG breast tomosynthesis bl scr performed at [facility]. November 21, 2020, bilateral MG breast tomosynthesis bl performed at [facility]. November 21, 2019, left breast MG mammogram digital diagnostic left performed at [facility]. September 13, 2019, bilateral MG breast tomosynthesis bl scr performed at [facility]. TISSUE DENSITY: BIRADS B - There are scattered fibroglandular densities. . FINDINGS: The patient was recalled from screening mammogram on 11/26/2021 for right breast mass. MAMMOGRAPHY An equal density mass is again seen in the central medial right breast at middle depth. ULTRASOUND: Ultrasound imaging of the right breast and axilla was performed by a registered crib attendant with Doppler. At the 3:00 position 4 cm from the nipple an irregular hypoechoic mass with peripheral vascularity is seen measuring 0.4 x 0.3 x 0.5 cm. Findings correspond to the mammographic mass. Scanning of the right axilla demonstrates three morphologically normal-appearing lymph nodes. Markings on images: Mammography Report BB's = Nipples; skin lesions Open fond du lac = Palpable Line = Scar IMPRESSION: Suspicious right breast mass at the 3:00 position 4 cm from the nipple without axillary lymphadenopathy. Surgical consultation and ultrasound guided core needle biopsy is recommended. Findings were discussed with the patient by Dr. Chin at the time of this dictation. US BREAST LIMITED RIGHT: 2021 - 2D digital mammography and tomosynthesis imaging were performed and reviewed with CAD. ASSESSMENT: Category 4 Suspicious (Overall) RECOMMENDATION: Ultrasound guided core biopsy and surgical consultation of the right breast. . Report Dictated on Final Signed Date and Time: 12/25/2021 12:54 pm Signed by: MD CHIN PATRICK [facility] US BREAST LIMITED RIGHTon Patient Name: ALBINA BROWN Ultrasound ACCESSION EXAM DATE/TIME PROCEDURE ORDERING PROVIDER [id number] 12/25/2021 12:36 EDT US Breast Limited Right MD ALDO, BRIAN ROLON CPT code 81467 Reason For Exam (US Breast Limited Right) abnormal mammogram Report TIME SINCE LAST MAMMOGRAM: Last mammogram was performed 1 month ago. REASON FOR EXAM: addl eval requested from prior study. PROCEDURE: MG BREAST TOMOSYNTHESIS RIGHT: 2021 - 2D/3D Procedure 3D views: Spot compression CC, spot compression MLO, and ML view(s) were taken of the right breast. 2D views: Spot compression CC, spot compression MLO, and ML view(s) were taken of the right breast. Prior study comparison: November 26, 2021, bilateral MG breast tomosynthesis bl scr performed at [facility]. November 21, 2020, bilateral MG breast tomosynthesis bl performed at [facility]. November 21, 2019, left breast MG mammogram digital diagnostic left performed at [facility]. September 13, 2019, bilateral MG breast tomosynthesis bl scr performed at [facility]. TISSUE DENSITY: BIRADS B - There are scattered fibroglandular densities. . FINDINGS: The patient was recalled from screening mammogram on 11/26/2021 for right breast mass. MAMMOGRAPHY An equal density mass is again seen in the central medial right breast at middle depth. ULTRASOUND: Ultrasound imaging of the right breast and axilla was performed by a registered crib attendant with Doppler. At the 3:00 position 4 cm from the nipple an irregular hypoechoic mass with peripheral vascularity is seen measuring 0.4 x 0.3 x 0.5 cm. Findings correspond to the mammographic mass. Scanning of the right axilla demonstrates three morphologically normal-appearing lymph nodes. Markings on images: BB's = Nipples; skin lesions Ultrasound Report Open fond du lac = Palpable Line = Scar IMPRESSION: Suspicious right breast mass at the 3:00 position 4 cm from the nipple without axillary lymphadenopathy. Surgical consultation and ultrasound guided core needle biopsy is recommended. Findings were discussed with the patient by Dr. Chin at the time of this dictation. US BREAST LIMITED RIGHT: 2021 - 2D digital mammography and tomosynthesis imaging were performed and reviewed with CAD. ASSESSMENT: Category 4 Suspicious (Overall) RECOMMENDATION: Ultrasound guided core biopsy and surgical consultation of the right breast. . Report Dictated on --- Final --- Signed Date and Time: 12/25/2021 12:54 pm Signed by: MD CHEL, [facility] Result, Unknown Provider - 12/25/2021 Patient Name: ALBINA BROWN Ultrasound ACCESSION EXAM DATE/TIME PROCEDURE ORDERING PROVIDER [id number] 12/25/2021 12:36 EDT US Breast Limited Right MD CARLSON BRADLEY THOMAS CPT code 27541 Reason For Exam (US Breast Limited Right) abnormal mammogram Report TIME SINCE LAST MAMMOGRAM: Last mammogram was performed 1 month ago. REASON FOR EXAM: addl eval requested from prior study. PROCEDURE: MG BREAST TOMOSYNTHESIS RIGHT: 2021 - 2D/3D Procedure 3D views: Spot compression CC, spot compression MLO, and ML view(s) were taken of the right breast. 2D views: Spot compression CC, spot compression MLO, and ML view(s) were taken of the right breast. Prior study comparison: November 26, 2021, bilateral MG breast tomosynthesis bl scr performed at [facility]. November 21, 2020, bilateral MG breast tomosynthesis bl performed at [facility]. November 21, 2019, left breast MG mammogram digital diagnostic left performed at [facility]. September 13, 2019, bilateral MG breast tomosynthesis bl scr performed at [facility]. TISSUE DENSITY: BIRADS B - There are scattered fibroglandular densities. . FINDINGS: The patient was recalled from screening mammogram on 11/26/2021 for right breast mass. MAMMOGRAPHY An equal density mass is again seen in the central medial right breast at middle depth. ULTRASOUND: Ultrasound imaging of the right breast and axilla was performed by a registered crib attendant with Doppler. At the 3:00 position 4 cm from the nipple an irregular hypoechoic mass with peripheral vascularity is seen measuring 0.4 x 0.3 x 0.5 cm. Findings correspond to the mammographic mass. Scanning of the right axilla demonstrates three morphologically normal-appearing lymph nodes. Markings on images: BB's = Nipples; skin lesions Ultrasound Report Open fond du lac = Palpable Line = Scar IMPRESSION: Suspicious right breast mass at the 3:00 position 4 cm from the nipple without axillary lymphadenopathy. Surgical consultation and ultrasound guided core needle biopsy is recommended. Findings were discussed with the patient by Dr. Chin at the time of this dictation. US BREAST LIMITED RIGHT: 2021 - 2D digital mammography and tomosynthesis imaging were performed and reviewed with CAD. ASSESSMENT: Category 4 Suspicious (Overall) RECOMMENDATION: Ultrasound guided core biopsy and surgical consultation of the right breast. . Report Dictated on --- Final --- Signed Date and Time: 12/25/2021 12:54 pm Signed by: MD CHIN PATRICK [facility] Work Phone: [employer] Work Phone: Radiology Study observation (narrative) [employer] Work Phone: US Breast Limited Righton US Breast Limited Right Patient Name: ALBINA DIAZ Ultrasound ACCESSION EXAM DATE/TIME PROCEDURE ORDERING PROVIDER [id number] 12/25/2021 12:36 EDT US Breast Limited Right MD ALDO, BRIAN ROLON CPT code 41603 Reason For Exam (US Breast Limited Right) abnormal mammogram Report TIME SINCE LAST MAMMOGRAM: Last mammogram was performed 1 month ago. REASON FOR EXAM: addl eval requested from prior study. PROCEDURE: MG BREAST TOMOSYNTHESIS RIGHT: 2021 - 2D/3D Procedure 3D views: Spot compression CC, spot compression MLO, and ML view(s) were taken of the right breast. 2D views: Spot compression CC, spot compression MLO, and ML view(s) were taken of the right breast. Prior study comparison: November 26, 2021, bilateral MG breast tomosynthesis bl scr performed at [facility]. November 21, 2020, bilateral MG breast tomosynthesis bl performed at [facility]. November 21, 2019, left breast MG mammogram digital diagnostic left performed at [facility]. September 13, 2019, bilateral MG breast tomosynthesis bl scr performed at [facility]. TISSUE DENSITY: BIRADS B - There are scattered fibroglandular densities. . FINDINGS: The patient was recalled from screening mammogram on 11/26/2021 for right breast mass. MAMMOGRAPHY An equal density mass is again seen in the central medial right breast at middle depth. ULTRASOUND: Ultrasound imaging of the right breast and axilla was performed by a registered crib attendant with Doppler. At the 3:00 position 4 cm from the nipple an irregular hypoechoic mass with peripheral vascularity is seen measuring 0.4 x 0.3 x 0.5 cm. Findings correspond to the mammographic mass. Scanning of the right axilla demonstrates three morphologically normal-appearing lymph nodes. Markings on images: BB's = Nipples; skin lesions Ultrasound Report Open fond du lac = Palpable Line = Scar IMPRESSION: Suspicious right breast mass at the 3:00 position 4 cm from the nipple without axillary lymphadenopathy. Surgical consultation and ultrasound guided core needle biopsy is recommended. Findings were discussed with the patient by Dr. Chin at the time of this dictation. US BREAST LIMITED RIGHT: 2021 - 2D digital mammography and tomosynthesis imaging were performed and reviewed with CAD. ASSESSMENT: Category 4 Suspicious (Overall) RECOMMENDATION: Ultrasound guided core biopsy and surgical consultation of the right breast. . Report Dictated on Final Signed Date and Time: 12/25/2021 12:54 pm Signed by: MD CHIN PATRICK [facility] MG Breast Tomosynthesis Scr Blon 11-26-2021 MG Breast Tomosynthesis Scr Bl Patient Name: ALBINA BROWN Mammography ACCESSION EXAM DATE/TIME PROCEDURE ORDERING PROVIDER [id number] 11/26/2021 10:34 EDT MG Breast Tomosynthesis MD CARLSON BRADLEY [facility] CPT code 58802 44247 Reason For Exam (MG Breast Tomosynthesis BI Scr) routine Report TIME SINCE LAST MAMMOGRAM: Last mammogram was performed 1 year ago. REASON FOR EXAM: screening, asymptomatic. PROCEDURE: MG BREAST TOMOSYNTHESIS BL SCR: NOVEMBER 26, 2021 - 2D/3D Procedure 3D Bilateral CC and MLO view(s) were taken. 2D Bilateral CC and MLO view(s) were taken. Prior study comparison: November 21, 2020, bilateral MG breast tomosynthesis bl performed at [facility]. November 21, 2019, left breast MG mammogram digital diagnostic left performed at [facility]. November 09, 2019, left breast MG mammogram digital diagnostic left performed at [facility]. October 31, 2019, left breast US breast limited left performed at [facility]. September 13, 2019, bilateral MG breast tomosynthesis bl scr performed at [facility]. TISSUE DENSITY: BIRADS B - There are scattered fibroglandular densities. . FINDINGS: A questionable mass is seen in the central medial right breast at middle depth. Stable postsurgical scarring with associated surgical clips is seen in the central slightly lateral left breast at middle depth. No mammographic evidence of malignancy in the left breast. Markings on images: BB's = Nipples; skin lesions Open fond du lac = Palpable Line = Scar 2D digital mammography and tomosynthesis imaging were performed and reviewed with CAD. ASSESSMENT: Category 0 Incomplete: need additional imaging evaluation RECOMMENDATION: Follow-up diagnostic mammogram. With a follow-up Ultrasound if needed. . Mammography Report Report Dictated on Final Signed Date and Time: 11/27/2021 3:29 pm Signed by: MD CHEL, JUMA Normal [facility] CBC W Auto Differential pane l (Bld)on 12-03-2020 Abs Immature Gran <0.03 <0.10 k/uL [facility] Basophils (Bld) [#/Vol] 0.03 10*3/uL <0.11 k/uL [facility] Basophils/100 WBC (Bld) 0.5 % [facility] Differential cell count method Nom (Bld) Auto [facility] Eosinophils (Bld) [#/Vol] 0.04 10*3/uL <0.46 k/ uL [facility] Eosinophils/100 WBC (Bld) 0.6 % [facility] Erythrocyte distribution width (RBC) [Ratio] 12.0 % 11.5 - 15.0 % [facility] Hematocrit (Bld) [Volume fraction] 37.6 % 36.0 - 46.0 % [facility] Hemoglobin (Bld) [Mass/Vol] 12.6 g/dL 11.5 - 15.5 g/dL [facility] Immature Gran % 0.2 % [facility] Lymphocytes (Bld) [#/Vol] 1.19 10*3/uL 1. 00 - 4.00 k/uL [facility] Lymphocytes/100 WBC (Bld) 18.1 % [facility] MCH (RBC) [Entitic mass] 31.1 pg 26. 0 - 34.0 pg [facility] MCHC (RBC) [Mass/Vol] 33.5 g/dL 30.5 - 36.0 g/dL [facility] MCV (RBC) [Entitic vol] 92.8 fL 80.0 - 100.0 fL [facility] Monocytes (Bld) [#/Vol] 0.55 10*3/uL <0.87 k/uL [facility] Monocytes/100 WBC (Bld) 8.3 % [facility] Neutrophils (Bld) [#/Vol] 4.77 10*3/uL 1. 45 - 7.50 k/uL [facility] Neutrophils/100 WBC (Bld) 72.3 % [facility] Nucleated RBC (Bld) [#/Vol] 10*3/uL <0.01 k/uL [facility] Nucleated RBC/100 WBC (Bld) [Ratio] 0.0 /100 WBC 0.0 /100 WBC [facility] Platelet mean volume (Bld) [Entitic vol] 10.6 fL 9.0 - 12.7 fL [facility] Platelets (Bld) [#/Vol] 263 10*3/uL 150 - 400 k/uL [facility] RBC (Bld) [#/Vol] 4.05 10*6/uL 3.90 - 5.2 0 m/uL [facility] WBC (Bld) [#/Vol] 6.59 10*3/uL 3.70 - 11. 00 k/uL [facility] Comprehensive metabolic 2000 panelon 12-03-2020 Albumin [Mass/Vol] 4.1 g/dL 3.9 - 4.9 g/dL [facility] ALP [Catalytic activity/Vol] 72 U/L 34 - 123 U/L [facility] ALT With P-5'-P [Catalytic activity/Vol] 12 U/L 7 - 38 U/L [facility] Anion gap [Moles/Vol] 13 mmol/L 9 - 18 mmol/L [facility] AST With P-5'-P [Catalytic activity/Vol] 22 U/L 13 - 35 U/L [facility] Bilirubin [Mass/Vol] 0.3 mg/dL 0.2 - 1 .3 mg/dL [facility] Calcium [Mass/Vol] 9.3 mg/dL 8.5 - 10. 2 mg/dL [facility] Chloride [Moles/Vol] 96 mmol/L Low 97 - 10 5 mmol/L [facility] CO2 [Moles/Vol] 24 mmol/L 22 - 30 mmol/L [facility] Creatinine [Mass/Vol] 0.65 mg/dL 0.58 - 0.96 mg/dL [facility] GFR/1.73 sq M.predicted MDRD (S/P/Bld) [Vol rate/Area] mL/min/{1.73_m2} [facility] Glucose [Mass/Vol] 123 mg/dL High 74 - 99 mg/dL [facility] Potassium [Moles/Vol] 3.8 mmol/L 3.7 - 5.1 mmol/L [facility] Protein [Mass/Vol] 6.3 g/dL 6.3 - 8.0 g/dL [facility] Sodium [Moles/Vol] 133 mmol/L Low 136 - 144 mmol/L [facility] Urea nitrogen [Mass/Vol] 8 mg/dL 7 - 21 mg/d L [facility] Laboratory - Chemistry and C hemistry - challengeon 12-03-2020 Cholesterol [Mass/Vol] 182 mg/dL <200 mg/dL [facility] Cholesterol in HDL [Mass/Vol] 61 mg/dL >39 mg/dL [facility] Cholesterol in LDL [Mass/Vol] 100 mg/dL High <100 mg/dL [facility] Cholesterol in LDL/Cholesterol in HDL [Mass ratio] 1.64 {ratio} <2.54 [facility] Cholesterol in VLDL [Mass/Vol] 21 mg/dL <30 mg/dL [facility] Cholesterol non HDL [Mass/Vol] 121 mg/dL <130 mg/dL [facility] Cholesterol.total/Cholest ema in HDL [Mass ratio] 2.98 {ratio} <5.10 [facility] Triglyceride [Mass/Vol] 107 mg/dL <150 mg/dL [facility] TSH Qn 1.450 m[IU]/L 0.270 - 4.200 uU/mL [facility] No Panel Informationon 12-03 Fasting Time 3 hrs [facility] CAROLINA HILDA DIGITAL DIAGNOSTIC BILATERALOrdered By: Thony Ventura on 11-21-2020 Patient Name: ALBINA BROWN Mammography ACCESSION EXAM DATE/TIME PROCEDURE ORDERING PROVIDER [id number] 11/21/2020 10:58 EDT MG Breast Tomosynthesis THONY VENTURA BI CPT code 54073 24081 Reason For Exam (MG Breast Tomosynthesis BI) breast cancer LOQ C50.512 Report TIME SINCE LAST MAMMOGRAM: Last mammogram was performed 1 year and 2 months ago. REASON FOR EXAM: history of breast cancer, conservation therapy. PROCEDURE: MG BREAST TOMOSYNTHESIS BL: NOVEMBER 21, 2020 - 2D/3D Procedure 3D Bilateral CC and MLO view(s) were taken. 2D Bilateral CC and MLO view(s) were taken. Prior study comparison: November 21, 2019, left breast MG mammogram digital diagnostic left performed at [facility]. November 09, 2019, left breast MG mammogram digital diagnostic left performed at [facility]. October 31, 2019, left breast US breast limited left performed at [facility]. TISSUE DENSITY: BIRADS B - There are scattered fibroglandular densities. . FINDINGS: Patient presents for her first mammogram after lumpectomy of the left breast. She is currently on endocrine therapy but radiation therapy was not performed. Expected postsurgical changes are noted along the central lateral position of the left breast. There are no new suspicious masses, calcifications, or areas of distortion noted. Impression: Expected postsurgical changes in the left breast. No new suspicious findings are seen bilaterally. Annual screening is recommended. Markings on images: BB's = Nipples; skin lesions Open fond du lac = Palpable Line = Scar 2D digital mammography and tomosynthesis imaging were performed and reviewed with CAD. ASSESSMENT: Category 2 Benign Mammography Report RECOMMENDATION: Routine screening mammogram of both breasts in 1 year. . Report Dictated on --- Final --- Signed Date and Time: 11/21/2020 11:25 am Signed by: MD KEL, TAYLOR NASSAR Work Phone: Primo, Chanellea Incoming Radiology Results From [facility] - 11/21/2020 11:31 AM EDT Patient Name: ALBINA BROWN Mammography ACCESSION EXAM DATE/TIME PROCEDURE ORDERING PROVIDER [id number] 11/21/2020 10:58 EDT MG Breast Tomosynthesis THONY VENTURA BI CPT code 44333 71631 Reason For Exam (MG Breast Tomosynthesis BI) breast cancer LOQ C50.512 Report TIME SINCE LAST MAMMOGRAM: Last mammogram was performed 1 year and 2 months ago. REASON FOR EXAM: history of breast cancer, conservation therapy. PROCEDURE: MG BREAST TOMOSYNTHESIS BL: NOVEMBER 21, 2020 - 2D/3D Procedure 3D Bilateral CC and MLO view(s) were taken. 2D Bilateral CC and MLO view(s) were taken. Prior study comparison: November 21, 2019, left breast MG mammogram digital diagnostic left performed at [facility]. November 09, 2019, left breast MG mammogram digital diagnostic left performed at [facility]. October 31, 2019, left breast US breast limited left performed at [facility]. TISSUE DENSITY: BIRADS B - There are scattered fibroglandular densities. . FINDINGS: Patient presents for her first mammogram after lumpectomy of the left breast. She is currently on endocrine therapy but radiation therapy was not performed. Expected postsurgical changes are noted along the central lateral position of the left breast. There are no new suspicious masses, calcifications, or areas of distortion noted. Impression: Expected postsurgical changes in the left breast. No new suspicious findings are seen bilaterally. Annual screening is recommended. Markings on images: BB's = Nipples; skin lesions Open fond du lac = Palpable Line = Scar 2D digital mammography and tomosynthesis imaging were performed and reviewed with CAD. ASSESSMENT: Category 2 Benign Mammography Report RECOMMENDATION: Routine screening mammogram of both breasts in 1 year. . Report Dictated on --- Final --- Signed Date and Time: 11/21/2020 11:25 am Signed by: MD BEGUM TOM A SUMMA Work Phone: [employer] Work Phone: DEXA Bone Density Axial Nataliya calderon 12-22-2019 Patient Name: ALBINA BROWN ---Bone Density--- Exam Date/Time 12/22/2019 10:15:02 EDT Exam OT Bone Density DEXA Axial Skeleton Ordering Physician MD ALDO, BRIAN ROLON Accession Number [id number] CPT4 Codes 94208 () Reason For Exam starting aromatase inhibitor Report DXA BONE DENSITOMETRY: CLINICAL INDICATION: Asymptomatic post-menopausal status. Screening for osteoporosis. COMPARISON: 10/01/2010 TECHNIQUE: Quantitative bone mineral densitometry of the hip and lumbar spine was performed with a dual energy x-ray observed absorptiometry device - [employer] at some institutions, [employer] at others. Regions of interest were obtained through the proximal femur and compared to the normal value of young adult women. Regions of interest were also obtained through the lumbar vertebrae with an average value determined and compared to the normal value of young adult women. The difference between your measured bone density and the bone density of a normal young woman is expressed in standard deviations as the T score. Similarly, your measured bone density is also compared to age and race matched values, and expressed in standard deviations as the Z score. According to World Health Organization criteria: T-score of -1.0 or higher is normal. T-score between -1.1 to < -2.5 is low bone density or osteopenia. T-score of -2.5 or lower is abnormally low, compatible with osteoporosis. T-score of -2.5 or less plus fragility fracture indicates severe osteoporosis." FINDINGS: Femoral neck LEFT Density: 0.658 g/cm2 T-score: -1.7 Z-score: 0.5 Total Hip LEFT Density: 0.836 g/cm2 T-score: -0.9 Z-score: 1.1 Comparison from prior examination: The bone mineralization has not significantly changed when compared to the previous study. Spine: L1-L4 Density 0.903 g/cm2 T-score: -1.3 Z-score: 1.3 Comparison from prior examination: The bone mineralization has not significantly changed when compared to the previous study. IMPRESSION: 1. Osteopenia. 2. The bone mineralization has not significantly changed when compared to the previous study. FRACTURE RISK: The estimated 10 year risk for a hip fracture is 3.2% and for a major osteoporosis-related fracture is 13%. (FRAX web version 3.11). RECOMMENDATIONS: General recommendations for prevention of bone loss include: 3034-5313 mg calcium intake per day for adults >50yrs, and no history of renal calculi 800-1000 IU of vitamin D3 per day for adults >50yrs, and no history of renal calculi Weight bearing exercise Discontinue smoking Avoid excessive use of caffeine, soft drinks, and alcoholic beverages In addition, balance training and fall prevention programs can help reduce the risk of fractures Pharmacologic treatment recommendations: Initiate pharmacologic treatment in patients with hip or vertebral fracture. In those with T scores spine by DXA In postmenopausal women and men age 50 or older with low bone mass (T score between -1.0 and -2.5 [osteopenia]) at the femoral neck, total hip, or lumbar spine by DXA have a 10 year hip fracture probability >/= 3% or a 10 year major osteoporosis-related fracture probability >/= 20% based on the [place]-adapted WHO fracture risk model (FRAX). Current FDA-approved pharmacologic options for osteoporosis treatment include bisphosphonates (Fosamax), ibandronate (Boniva), risedronate (Actonel), zoledronic acid (Reclast), estrogens and other hormonal therapies (Evista), parathyroid hormone (Forteo), and denosumab (Prolia). Initiation of pharmacologic therapy should happen only after thorough medical evaluation, discussion of risks and benefits, and with regular monitoring of the therapeutic regimen. Follow-up recommendations: Patients with osteoporosis or or at high risk for fracture should have follow-up bone density tests. For Medicare patients, routine testing is allowed every 2 years. Patients who have low bone mass (T score -2.0 to -2.49), who are currently on treatment for low bone mass, or having risk factors for accelerated bone loss (glucocorticoids, aromatase inhibitors, etc.), consider repeat DXA in 1-2 years. Patients with osteopenia and no risk factors may consider follow-up every 3-5 years. References: National Osteoporosis Foundation. Clinician's Guide to Prevention and Treatment of Osteoporosis. Osteoporosis International. Barber, 2014. DXA Scan Screening, Reporting (FRAX Score) and Follow-up. [employer] Knowledge Evidence - based Summaries. [facility] 2017. Report Dictated on Workstation: [id number] --- Final --- Dictating Physician: MD GIL JEFFREY Signed Date and Time: 12/22/2019 2:00 pm Signed by: MD GIL JEFFREY Transcribed Date and Time: 12/22/2019 2:01 [facility] [place], [place] Primo, Summa Incoming Radiology Results From [facility] - 12/22/2019 2:02 PM EDT Patient Name: ALBINA BROWN ---Bone Density--- Exam Date/Time 12/22/2019 10:15:02 EDT Exam OT Bone Density DEXA Axial Skeleton Ordering Physician MD CARLSON BRADLEY THOMAS Accession Number [id number] CPT4 Codes 04044 () Reason For Exam starting aromatase inhibitor Report DXA BONE DENSITOMETRY: CLINICAL INDICATION: Asymptomatic post-menopausal status. Screening for osteoporosis. COMPARISON: 10/01/2010 TECHNIQUE: Quantitative bone mineral densitometry of the hip and lumbar spine was performed with a dual energy x-ray observed absorptiometry device - [employer] at some institutions, [employer] at others. Regions of interest were obtained through the proximal femur and compared to the normal value of young adult women. Regions of interest were also obtained through the lumbar vertebrae with an average value determined and compared to the normal value of young adult women. The difference between your measured bone density and the bone density of a normal young woman is expressed in standard deviations as the T score. Similarly, your measured bone density is also compared to age and race matched values, and expressed in standard deviations as the Z score. According to World Health Organization criteria: T-score of -1.0 or higher is normal. T-score between -1.1 to < -2.5 is low bone density or osteopenia. T-score of -2.5 or lower is abnormally low, compatible with osteoporosis. T-score of -2.5 or less plus fragility fracture indicates severe osteoporosis." FINDINGS: Femoral neck LEFT Density: 0.658 g/cm2 T-score: -1.7 Z-score: 0.5 Total Hip LEFT Density: 0.836 g/cm2 T-score: -0.9 Z-score: 1.1 Comparison from prior examination: The bone mineralization has not significantly changed when compared to the previous study. Spine: L1-L4 Density 0.903 g/cm2 T-score: -1.3 Z-score: 1.3 Comparison from prior examination: The bone mineralization has not significantly changed when compared to the previous study. IMPRESSION: 1. Osteopenia. 2. The bone mineralization has not significantly changed when compared to the previous study. FRACTURE RISK: The estimated 10 year risk for a hip fracture is 3.2% and for a major osteoporosis-related fracture is 13%. (FRAX web version 3.11). RECOMMENDATIONS: General recommendations for prevention of bone loss include: 1772-3538 mg calcium intake per day for adults >50yrs, and no history of renal calculi 800-1000 IU of vitamin D3 per day for adults >50yrs, and no history of renal calculi Weight bearing exercise Discontinue smoking Avoid excessive use of caffeine, soft drinks, and alcoholic beverages In addition, balance training and fall prevention programs can help reduce the risk of fractures Pharmacologic treatment recommendations: Initiate pharmacologic treatment in patients with hip or vertebral fracture. In those with T scores spine by DXA In postmenopausal women and men age 50 or older with low bone mass (T score between -1.0 and -2.5 [osteopenia]) at the femoral neck, total hip, or lumbar spine by DXA have a 10 year hip fracture probability >/= 3% or a 10 year major osteoporosis-related fracture probability >/= 20% based on the [place]-adapted WHO fracture risk model (FRAX). Current FDA-approved pharmacologic options for osteoporosis treatment include bisphosphonates (Fosamax), ibandronate (Boniva), risedronate (Actonel), zoledronic acid (Reclast), estrogens and other hormonal therapies (Evista), parathyroid hormone (Forteo), and denosumab (Prolia). Initiation of pharmacologic therapy should happen only after thorough medical evaluation, discussion of risks and benefits, and with regular monitoring of the therapeutic regimen. Follow-up recommendations: Patients with osteoporosis or or at high risk for fracture should have follow-up bone density tests. For Medicare patients, routine testing is allowed every 2 years. Patients who have low bone mass (T score -2.0 to -2.49), who are currently on treatment for low bone mass, or having risk factors for accelerated bone loss (glucocorticoids, aromatase inhibitors, etc.), consider repeat DXA in 1-2 years. Patients with osteopenia and no risk factors may consider follow-up every 3-5 years. References: National Osteoporosis Foundation. Clinician's Guide to Prevention and Treatment of Osteoporosis. Osteoporosis International. Barber, 2014. DXA Scan Screening, Reporting (FRAX Score) and Follow-up. [employer] Knowledge Evidence - based Summaries. [facility] [employer] Education and Research 2017. Report Dictated on Workstation: [facility] --- Final --- Dictating Physician: MD GIL JEFFREY Signed Date and Time: 12/22/2019 2:00 pm Signed by: MD GIL JEFFREY Transcribed Date and Time: 12/22/2019 2:01 [facility] BREAST SPECIMENon 2019 Patient Name: ALBINA BROWN ---Mammography--- Exam Date/Time 11/21/2019 11:37:12 EDT Exam MG Surgical-Specimen Ordering Physician THONY VENTURA Accession Number [id number] CPT4 Codes 79562 () Reason For Exam C50.512 Report PROCEDURE: MG SURGICAL SPECIMEN: LEFT BREAST - NOVEMBER 21, 2019 - . FINDINGS: A specimen radiograph was submitted for interpretation. The biopsy clip and adjacent wire are present within the specimen. The clip is located at E-F, 4. RECOMMENDATION: Treatment plan. . Report Dictated on --- Final --- Signed Date and Time: 11/21/2019 11:33 am Signed by: MD LUIS KERISTEN L [place], [place] [facility] - 11/21/2019 1:42 PM EDT Patient Name: ALBINA BROWN ---Mammography--- Exam Date/Time 11/21/2019 11:37:12 EDT Exam MG Surgical-Specimen Ordering Physician THONY VENTURA Accession Number [id number] CPT4 Codes 73487 () Reason For Exam C50.512 Report PROCEDURE: MG SURGICAL SPECIMEN: LEFT BREAST - NOVEMBER 21, 2019 - . FINDINGS: A specimen radiograph was submitted for interpretation. The biopsy clip and adjacent wire are present within the specimen. The clip is located at E-F, 4. RECOMMENDATION: Treatment plan. . Report Dictated on --- Final --- Signed Date and Time: 11/21/2019 11:33 am Signed by: MD TOBY, [facility] [place], [place] DIGITAL DIAGNOSTIC W OR WO CAD LEFTon 11-21-2019 Patient Name: ALBINA BROWN ---Mammography--- Exam Date/Time 11/21/2019 09:21:34 EDT Exam MG Mammogram Digital Diagnostic Left Ordering Physician THONY VENTURA Accession Number [id number] CPT4 Codes 16010 () Reason For Exam Left breast cancer, C50.512 Report TIME SINCE LAST MAMMOGRAM: Last mammogram was performed 2 months ago. REASON FOR EXAM: known biopsy proven malignancy. PROCEDURE: US P-O PLCMT LOC DEV BREAST INITIAL: LEFT BREAST - NOVEMBER 21, 2019 - REASON FOR EXAMINATION: Left breast papillary carcinoma. CONSENT: The patient presents for Ultrasound guided localization for a tissue marker identified in the left breast. Prior to the procedure red rules were performed which included patient name, date of , and procedure type. Risks, benefits and alternatives were explained to the patient and informed consent was obtained. PROCEDURE: The patient s most recent prior imaging dated 11/09/2019 was reviewed. I washed my hands and wore sterile gloves. The patient was scanned and the mass in the left breast was redemonstrated at the 4:00 position 3 cm from the nipple. The patient was prepped in the usual sterile fashion. 5 mL of 1% Lidocaine was administered for local anesthesia. A 5 cm Kopans wire localization system was advanced to the targeted tissue marker and documented in satisfactory position with Ultrasound guidance. The localization wire was deployed. POST PROCEDURE MAMMOGRAM: Following the procedure, the patient was transported to the mammography suite and a post procedure digital mammogram was performed in the lateral and CC projection. The localization wire is in satisfactory position. The patient tolerated the procedure without immediate complications. The patient is scheduled for surgery with Dr. Thony Ventura. IMPRESSION: Technically successful Ultrasound localization of the left breast. MG MAMMOGRAM DIGITAL DIAGNOSTIC LEFT: NOVEMBER 21, 2019 - CC and MLO view(s) were taken of the left breast. Prior study comparison: November 09, 2019, left breast MG mammogram digital diagnostic left performed at [facility]. October 31, 2019, left breast US breast limited left performed at [facility]. September 13, 2019, bilateral MG breast tomosynthesis bl scr performed at [facility]. September 01, 2018, left breast MG breast tomosynthesis left performed at [facility]. 2D digital mammography imaging was performed and reviewed with CAD. ASSESSMENT: Post procedure mammogram for marker placement RECOMMENDATION: Treatment plan. . Report Dictated on --- Final --- Signed Date and Time: 11/21/2019 9:18 am Signed by: MD TOBY, [facility] Incoming [facility] - 11/21/2019 1:42 PM EDT Patient Name: ALBINA BROWN ---Mammography--- Exam Date/Time 11/21/2019 09:21:34 EDT Exam MG Mammogram Digital Diagnostic Left Ordering Physician THONY VENTURA Accession Number [id number] CPT4 Codes 87389 () Reason For Exam Left breast cancer, C50.512 Report TIME SINCE LAST MAMMOGRAM: Last mammogram was performed 2 months ago. REASON FOR EXAM: known biopsy proven malignancy. PROCEDURE: US P-O PLCMT LOC DEV BREAST INITIAL: LEFT BREAST - NOVEMBER 21, 2019 - REASON FOR EXAMINATION: Left breast papillary carcinoma. CONSENT: The patient presents for Ultrasound guided localization for a tissue marker identified in the left breast. Prior to the procedure red rules were performed which included patient name, date of , and procedure type. Risks, benefits and alternatives were explained to the patient and informed consent was obtained. PROCEDURE: The patient s most recent prior imaging dated 11/09/2019 was reviewed. I washed my hands and wore sterile gloves. The patient was scanned and the mass in the left breast was redemonstrated at the 4:00 position 3 cm from the nipple. The patient was prepped in the usual sterile fashion. 5 mL of 1% Lidocaine was administered for local anesthesia. A 5 cm Kopans wire localization system was advanced to the targeted tissue marker and documented in satisfactory position with Ultrasound guidance. The localization wire was deployed. POST PROCEDURE MAMMOGRAM: Following the procedure, the patient was transported to the mammography suite and a post procedure digital mammogram was performed in the lateral and CC projection. The localization wire is in satisfactory position. The patient tolerated the procedure without immediate complications. The patient is scheduled for surgery with Dr. Thony Ventura. IMPRESSION: Technically successful Ultrasound localization of the left breast. MG MAMMOGRAM DIGITAL DIAGNOSTIC LEFT: NOVEMBER 21, 2019 - CC and MLO view(s) were taken of the left breast. Prior study comparison: November 09, 2019, left breast MG mammogram digital diagnostic left performed at [facility]. October 31, 2019, left breast US breast limited left performed at [facility]. September 13, 2019, bilateral MG breast tomosynthesis bl scr performed at [facility]. September 01, 2018, left breast MG breast tomosynthesis left performed at [facility]. 2D digital mammography imaging was performed and reviewed with CAD. ASSESSMENT: Post procedure mammogram for marker placement RECOMMENDATION: Treatment plan. . Report Dictated on --- Final --- Signed Date and Time: 11/21/2019 9:18 am Signed by: MD TOBY, [place] BREAST LOCALIZATION PREOP PLACEMENT Lefton 11-21-2019 Patient Name: ALBINA BROWN ---Ultrasound--- Exam Date/Time 11/21/2019 09:19:32 EDT Exam US P-O [facility] Ndl Lcl Wire RT Ordering Physician THONY VENTURA Accession Number [id number] CPT4 Codes 30489 () Reason For Exam Left breast cancer, C50.512 Report TIME SINCE LAST MAMMOGRAM: Last mammogram was performed 2 months ago. REASON FOR EXAM: known biopsy proven malignancy. PROCEDURE: US P-O PLCMT LOC DEV BREAST INITIAL: LEFT BREAST - NOVEMBER 21, 2019 - REASON FOR EXAMINATION: Left breast papillary carcinoma. CONSENT: The patient presents for Ultrasound guided localization for a tissue marker identified in the left breast. Prior to the procedure red rules were performed which included patient name, date of , and procedure type. Risks, benefits and alternatives were explained to the patient and informed consent was obtained. PROCEDURE: The patient s most recent prior imaging dated 11/09/2019 was reviewed. I washed my hands and wore sterile gloves. The patient was scanned and the mass in the left breast was redemonstrated at the 4:00 position 3 cm from the nipple. The patient was prepped in the usual sterile fashion. 5 mL of 1% Lidocaine was administered for local anesthesia. A 5 cm [employer] wire localization system was advanced to the targeted tissue marker and documented in satisfactory position with Ultrasound guidance. The localization wire was deployed. POST PROCEDURE MAMMOGRAM: Following the procedure, the patient was transported to the mammography suite and a post procedure digital mammogram was performed in the lateral and CC projection. The localization wire is in satisfactory position. The patient tolerated the procedure without immediate complications. The patient is scheduled for surgery with Dr. Thony Ventura. IMPRESSION: Technically successful Ultrasound localization of the left breast. MG MAMMOGRAM DIGITAL DIAGNOSTIC LEFT: NOVEMBER 21, 2019 - CC and MLO view(s) were taken of the left breast. Prior study comparison: November 09, 2019, left breast MG mammogram digital diagnostic left performed at [facility]. October 31, 2019, left breast US breast limited left performed at [facility]. September 13, 2019, bilateral MG breast tomosynthesis bl scr performed at [facility]. September 01, 2018, left breast MG breast tomosynthesis left performed at [facility]. 2D digital mammography imaging was performed and reviewed with CAD. ASSESSMENT: Post procedure mammogram for marker placement RECOMMENDATION: Treatment plan. . Report Dictated on --- Final --- Signed Date and Time: 11/21/2019 9:18 am Signed by: MD TOBY, [facility] Results From [facility] - 11/21/2019 1:42 PM EDT Patient Name: ALBINA BROWN ---Ultrasound--- Exam Date/Time 11/21/2019 09:19:32 EDT Exam US P-O [facility] Ndl Lcl Wire RT Ordering Physician THONY VENTURA Accession Number [id number] CPT4 Codes 49121 () Reason For Exam Left breast cancer, C50.512 Report TIME SINCE LAST MAMMOGRAM: Last mammogram was performed 2 months ago. REASON FOR EXAM: known biopsy proven malignancy. PROCEDURE: US P-O PLCMT LOC DEV BREAST INITIAL: LEFT BREAST - NOVEMBER 21, 2019 - REASON FOR EXAMINATION: Left breast papillary carcinoma. CONSENT: The patient presents for Ultrasound guided localization for a tissue marker identified in the left breast. Prior to the procedure red rules were performed which included patient name, date of , and procedure type. Risks, benefits and alternatives were explained to the patient and informed consent was obtained. PROCEDURE: The patient s most recent prior imaging dated 11/09/2019 was reviewed. I washed my hands and wore sterile gloves. The patient was scanned and the mass in the left breast was redemonstrated at the 4:00 position 3 cm from the nipple. The patient was prepped in the usual sterile fashion. 5 mL of 1% Lidocaine was administered for local anesthesia. A 5 cm Kopans wire localization system was advanced to the targeted tissue marker and documented in satisfactory position with Ultrasound guidance. The localization wire was deployed. POST PROCEDURE MAMMOGRAM: Following the procedure, the patient was transported to the mammography suite and a post procedure digital mammogram was performed in the lateral and CC projection. The localization wire is in satisfactory position. The patient tolerated the procedure without immediate complications. The patient is scheduled for surgery with Dr. Thony Ventura. IMPRESSION: Technically successful Ultrasound localization of the left breast. MG MAMMOGRAM DIGITAL DIAGNOSTIC LEFT: NOVEMBER 21, 2019 - CC and MLO view(s) were taken of the left breast. Prior study comparison: November 09, 2019, left breast MG mammogram digital diagnostic left performed at [facility]. October 31, 2019, left breast US breast limited left performed at [facility]. September 13, 2019, bilateral MG breast tomosynthesis bl scr performed at [facility]. September 01, 2018, left breast MG breast tomosynthesis left performed at [facility]. 2D digital mammography imaging was performed and reviewed with CAD. ASSESSMENT: Post procedure mammogram for marker placement RECOMMENDATION: Treatment plan. . Report Dictated on --- Final --- Signed Date and Time: 11/21/2019 9:18 am Signed by: MD LUIS KERISTEN L [place], [place] [facility] 11-18-2019 Erythrocyte distribution width (RBC) [Ratio] 13.2 % 11.5 - 14.5 % [place] Hematocrit (Bld) [Volume fraction] 35.5 % 35 - 47 % [place] Hemoglobin (Bld) [Mass/Vol] 11.9 g/dL 11.7 - 16 g/dL [place] Interpretation and review of laboratory results Abnormal [place], [place] MCH (RBC) [Entitic mass] 31.4 pg 26 - 34 pg [place] MCHC (RBC) [Mass/Vol] 33.5 % 32 - 36 % [place], [place] MCV (RBC) [Entitic vol] 93.8 fL 79 - 98 fL [place], [place] Platelet mean volume (Bld) [Entitic vol] 7.7 fL 7.4 - 10.4 fL [place] Platelets (Bld) [#/Vol] 247 10*3/uL 140 - 440 10*3/uL [place] RBC (Bld) [#/Vol] 3.79 10*6/uL Low 3.8 - 5.2 10*6/uL [place] WBC (Bld) [#/Vol] 4.9 10*3/uL 3.6 - 10.7 10*3/uL [place] Test Performed by [facility], [address], [place], [place] [address] [place], [place] Comprehensive Metabolic Pane l w/ Reflex to MGon 11-18-2019 Albumin [Mass/Vol] 4.0 g/dL 3.5 - 5 g/dL [place], [place] ALP [Catalytic activity/Vol] 87 U/L 38 - 126 U/L [place] ALT [Catalytic activity/Vol] 15 U/L 0 - 34 U/L [place] Comment on above: The ALT test is perf ormed by an updated assay method. Please note that the reference intervals have been changed and are now sex specific. Anion gap [Moles/Vol] 5 mmol/L [place], [place] AST [Catalytic activity/Vol] 33 U/L 15 - 46 U/L [place] Bilirubin Ql (U) 0.4 mg/dL 0.2 - 1.3 mg/dL [place] Calcium [Mass/Vol] 9.0 mg/dL 8.4 - 10. 4 mg/dL [place] Chloride [Moles/Vol] 107 mmol/L 98 - 10 7 mmol/L [place] CO2 [Moles/Vol] 27 mmol/L 22 - 30 mmol/L [place] Creatinine [Mass/Vol] 0.68 mg/dL 0.52 - 1.25 mg/dL [place] EGFR IF NonAfrican [place]ian 83.5 mL/min >60 [place] Comment on above: KDIGO guidelines pro vide the following GFR categories: Stage GFR(ml/min/1.73 m2) Terms G1 >=90 Normal or high G2 60-89 Mildly decreased* G3a 45-59 Mildly to moderately decreased G3b 30-44 Moderately to severely decreased G4 15-29 Severely decreased G5 <15 Kidney failure *Relative to young adult level. In the absence of evidence of kidney damage, neither GFR category G1 nor G2 fulfill the criteria for CKD. The CKD-EPI equation is validated in individuals 18 years of age and older. Currently the best equation for estimating glomerular filtration rate (GFR) from serum creatinine in children is the Bedside Gillespie equation. It is less accurate in patients with extremes of muscle mass, restriction of dietary protein, ingestion of creatine, extra-renal metabolism of creatinine, or treatment with medications that affect renal tubular creatinine secretion. GFR/1.73 sq M predicted among blacks MDRD (S/P/Bld) [Vol rate/Area] mL/min/{1.73_m2} >60 mL/min [place] Glucose [Mass/Vol] 119 mg/dL High 70 - 100 mg/dL [place] Interpretation and review of laboratory results Abnormal [place], [place] Potassium [Moles/Vol] 3.9 mmol/L 3.5 - 5.1 mmol/L [place] Protein [Mass/Vol] 6.6 g/dL 6.3 - 8.2 g/dL [place] Sodium [Moles/Vol] 138 mmol/L 135 - 145 mmol/L [place] Urea nitrogen [Mass/Vol] 20 mg/dL 7 - 20 mg/d L [place] Test Performed by [facility], [address], [place], [place] [address] [place] DIGITAL DIAGNOSTIC W OR WO CAD LEFTon 11-09-2019 Patient Name: ALBINA BROWN ---Mammography--- Exam Date/Time 11/09/2019 14:20:33 EDT Exam MG Mammogram Digital Diagnostic Left Ordering Physician THONY VENTURA Accession Number [id number] CPT4 Codes 31793 () Reason For Exam R92.8, abnormal ultrasound Report TIME SINCE LAST MAMMOGRAM: Last mammogram was performed 2 months ago. REASON FOR EXAM: follow-up at short interval from prior study. PROCEDURE: US BX BREAST 1ST LESION IMAGE LT: LEFT BREAST - NOVEMBER 09, 2019 - REASON FOR EXAMINATION: Left breast mass. CONSENT: The patient presents for ultrasound-guided core biopsy of the left breast. Prior to the procedure red rules were performed which included patient name, date of , and procedure type. Risks, benefits and alternatives were explained to the patient and informed consent was obtained. The patient s prior imaging most recently dated 10/31/2019 was reviewed. PROCEDURE: An audible time out was performed. I washed my hands and wore sterile gloves. The patient was scanned and the lesion in the 4:00 position was redemonstrated. The patient was prepped in the usual sterile fashion. 10 mL of 1% Lidocaine was administered for local anesthesia. A juvencio was made in the skin and a 14-gauge BARD core biopsy device was advanced into the lesion with ultrasound guidance. 3 core specimens were obtained. Following the procedure a [employer] Q-shape tissue marker was deployed at the site of biopsy. Hemostasis was obtained by holding manual pressure. The patient tolerated the procedure without immediate complications. Home-going instructions were given and the patient was discharged in good condition. IMPRESSION: Technically successful US guided biopsy of the left breast. MAMMOGRAM: Following the procedure the patient was transported to the mammography suite and a 2D digital mammogram was performed demonstrating satisfactory placement of the tissue marker at the site of biopsy. Markings on images: BB's = Nipples; skin lesions Open fond du lac = Palpable Line = Scar Pathology results and recommendation will be provided as an addendum to this report following the receipt of the pathology report from the lab. Report Dictated on PATHOLOGY RESULTS: PENDING MG MAMMOGRAM DIGITAL DIAGNOSTIC LEFT: NOVEMBER 09, 2019 - CC and MLO view(s) were taken of the left breast. 2D digital mammography imaging was performed and reviewed with CAD. ASSESSMENT: Post procedure mammogram for marker placement --- Final --- Signed Date and Time: 11/09/2019 2:11 pm Signed by: MD TOBY, [place] Cesario Tillman Incoming Radiology Results From [facility] - 11/09/2019 2:56 PM EDT Patient Name: ALBINA BROWN ---Mammography--- Exam Date/Time 11/09/2019 14:20:33 EDT Exam MG Mammogram Digital Diagnostic Left Ordering Physician THONY VENTURA Accession Number [id number] CPT4 Codes 46014 () Reason For Exam R92.8, abnormal ultrasound Report TIME SINCE LAST MAMMOGRAM: Last mammogram was performed 2 months ago. REASON FOR EXAM: follow-up at short interval from prior study. PROCEDURE: US BX BREAST 1ST LESION IMAGE LT: LEFT BREAST - NOVEMBER 09, 2019 - REASON FOR EXAMINATION: Left breast mass. CONSENT: The patient presents for ultrasound-guided core biopsy of the left breast. Prior to the procedure red rules were performed which included patient name, date of , and procedure type. Risks, benefits and alternatives were explained to the patient and informed consent was obtained. The patient s prior imaging most recently dated 10/31/2019 was reviewed. PROCEDURE: An audible time out was performed. I washed my hands and wore sterile gloves. The patient was scanned and the lesion in the 4:00 position was redemonstrated. The patient was prepped in the usual sterile fashion. 10 mL of 1% Lidocaine was administered for local anesthesia. A juvencio was made in the skin and a 14-gauge BARD core biopsy device was advanced into the lesion with ultrasound guidance. 3 core specimens were obtained. Following the procedure a [employer] Q-shape tissue marker was deployed at the site of biopsy. Hemostasis was obtained by holding manual pressure. The patient tolerated the procedure without immediate complications. Home-going instructions were given and the patient was discharged in good condition. IMPRESSION: Technically successful US guided biopsy of the left breast. MAMMOGRAM: Following the procedure the patient was transported to the mammography suite and a 2D digital mammogram was performed demonstrating satisfactory placement of the tissue marker at the site of biopsy. Markings on images: BB's = Nipples; skin lesions Open fond du lac = Palpable Line = Scar Pathology results and recommendation will be provided as an addendum to this report following the receipt of the pathology report from the lab. Report Dictated on PATHOLOGY RESULTS: PENDING MG MAMMOGRAM DIGITAL DIAGNOSTIC LEFT: NOVEMBER 09, 2019 - CC and MLO view(s) were taken of the left breast. 2D digital mammography imaging was performed and reviewed with CAD. ASSESSMENT: Post procedure mammogram for marker placement --- Final --- Signed Date and Time: 11/09/2019 2:11 pm Signed by: MD TOBY, [place] GUIDED LEFT BREAST BIOPSY on 11-09-2019 Patient Name: ALBINA BROWN ---Ultrasound--- Exam Date/Time 11/09/2019 14:00:00 EDT Exam US BX Breast 1st Lesion Image LT Ordering Physician THONY VENTURA Accession Number [id number] CPT4 Codes 23959 (), A4648 () Reason For Exam R92.8, abnormal ultrasound of breast Report TIME SINCE LAST MAMMOGRAM: Last mammogram was performed 2 months ago. REASON FOR EXAM: follow-up at short interval from prior study. PROCEDURE: US BX BREAST 1ST LESION IMAGE LT: LEFT BREAST - NOVEMBER 09, 2019 - REASON FOR EXAMINATION: Left breast mass. CONSENT: The patient presents for ultrasound-guided core biopsy of the left breast. Prior to the procedure red rules were performed which included patient name, date of , and procedure type. Risks, benefits and alternatives were explained to the patient and informed consent was obtained. The patient s prior imaging most recently dated 10/31/2019 was reviewed. PROCEDURE: An audible time out was performed. I washed my hands and wore sterile gloves. The patient was scanned and the lesion in the 4:00 position was redemonstrated. The patient was prepped in the usual sterile fashion. 10 mL of 1% Lidocaine was administered for local anesthesia. A juvencio was made in the skin and a 14-gauge BARD core biopsy device was advanced into the lesion with ultrasound guidance. 3 core specimens were obtained. Following the procedure a [place] Q-shape tissue marker was deployed at the site of biopsy. Hemostasis was obtained by holding manual pressure. The patient tolerated the procedure without immediate complications. Home-going instructions were given and the patient was discharged in good condition. IMPRESSION: Technically successful US guided biopsy of the left breast. MAMMOGRAM: Following the procedure the patient was transported to the mammography suite and a 2D digital mammogram was performed demonstrating satisfactory placement of the tissue marker at the site of biopsy. Markings on images: BB's = Nipples; skin lesions Open fond du lac = Palpable Line = Scar Pathology results and recommendation will be provided as an addendum to this report following the receipt of the pathology report from the lab. Report Dictated on PATHOLOGY RESULTS: PENDING MG MAMMOGRAM DIGITAL DIAGNOSTIC LEFT: NOVEMBER 09, 2019 - CC and MLO view(s) were taken of the left breast. 2D digital mammography imaging was performed and reviewed with CAD. ASSESSMENT: Post procedure mammogram for marker placement --- Final --- Signed Date and Time: 11/09/2019 2:11 pm Signed by: MD TOBY, [facility] Incoming Radiology Results From [facility] - 11/09/2019 2:56 PM EDT Patient Name: ALBINA BROWN ---Ultrasound--- Exam Date/Time 11/09/2019 14:00:00 EDT Exam US BX Breast 1st Lesion Image LT Ordering Physician THONY VENTURA Accession Number [id number] CPT4 Codes 02104 (), A4648 () Reason For Exam R92.8, abnormal ultrasound of breast Report TIME SINCE LAST MAMMOGRAM: Last mammogram was performed 2 months ago. REASON FOR EXAM: follow-up at short interval from prior study. PROCEDURE: US BX BREAST 1ST LESION IMAGE LT: LEFT BREAST - NOVEMBER 09, 2019 - REASON FOR EXAMINATION: Left breast mass. CONSENT: The patient presents for ultrasound-guided core biopsy of the left breast. Prior to the procedure red rules were performed which included patient name, date of , and procedure type. Risks, benefits and alternatives were explained to the patient and informed consent was obtained. The patient s prior imaging most recently dated 10/31/2019 was reviewed. PROCEDURE: An audible time out was performed. I washed my hands and wore sterile gloves. The patient was scanned and the lesion in the 4:00 position was redemonstrated. The patient was prepped in the usual sterile fashion. 10 mL of 1% Lidocaine was administered for local anesthesia. A juvencio was made in the skin and a 14-gauge BARD core biopsy device was advanced into the lesion with ultrasound guidance. 3 core specimens were obtained. Following the procedure a [place] Q-shape tissue marker was deployed at the site of biopsy. Hemostasis was obtained by holding manual pressure. The patient tolerated the procedure without immediate complications. Home-going instructions were given and the patient was discharged in good condition. IMPRESSION: Technically successful US guided biopsy of the left breast. MAMMOGRAM: Following the procedure the patient was transported to the mammography suite and a 2D digital mammogram was performed demonstrating satisfactory placement of the tissue marker at the site of biopsy. Markings on images: BB's = Nipples; skin lesions Open fond du lac = Palpable Line = Scar Pathology results and recommendation will be provided as an addendum to this report following the receipt of the pathology report from the lab. Report Dictated on PATHOLOGY RESULTS: PENDING MG MAMMOGRAM DIGITAL DIAGNOSTIC LEFT: NOVEMBER 09, 2019 - CC and MLO view(s) were taken of the left breast. 2D digital mammography imaging was performed and reviewed with CAD. ASSESSMENT: Post procedure mammogram for marker placement --- Final --- Signed Date and Time: 11/09/2019 2:11 pm Signed by: MD TOBY, [facility] [place], [place] US BREAST LIMITED LEFTon Patient Name: ALBINA BROWN ---Ultrasound--- Exam Date/Time 10/31/2019 15:37:47 EDT Exam US Breast Limited Left Ordering Physician ABDIEL BELTRÁN Accession Number [id number] CPT4 Codes 40472 () Reason For Exam Abnormal mammogram Report REASON FOR EXAM: mammographic abnormality. PROCEDURE: US BREAST LIMITED LEFT: OCTOBER 31, 2019 - Prior study comparison: September 13, 2019, bilateral MG breast tomosynthesis bl scr performed at [facility]. September 01, 2018, left breast MG breast tomosynthesis left performed at [facility]. July 29, 2018, bilateral MG breast tomosynthesis bl scr performed at [facility]. July 28, 2017, bilateral MG breast tomosynthesis bl scr performed at [facility]. . FINDINGS: 79-year-old female who is recalled from a screening mammogram for a mass in the left breast. Sonographic images of the left breast at 4:00 position 3 cm no nipple demonstrate the mammographic abnormality. The mass is a hypoechoic irregular vascular mass. It measures 1.4 x 1.3 x 0.9 cm. The left axilla demonstrates no adenopathy. IMPRESSION: Mass for which the patient was recalled correlates to a suspicious sonographic mass. Ultrasound-guided biopsy is recommended for further evaluation. The findings and recommendations were discussed with the patient the time of interpretation. She will see Dr. Ventura for surgical consultation on 11/04/2019 at 9:30 AM with a biopsy scheduled for 11/09/2019 at 1:00 PM. A voicemail was left for Kala in 's office in regards to these recommendations. ASSESSMENT: Category 4 Suspicious RECOMMENDATION: Surgical consultation. Ultrasound guided core biopsy of the left breast. . Report Dictated on --- Final --- Signed Date and Time: 10/31/2019 4:15 pm Signed by: MD KEL, [facility] 10/31/2019 4:16 PM EDT Patient Name: ALBINA BROWN ---Ultrasound--- Exam Date/Time 10/31/2019 15:37:47 EDT Exam US Breast Limited Left Ordering Physician ABDIEL BELTRÁN Accession Number [id number] CPT4 Codes 44708 () Reason For Exam Abnormal mammogram Report REASON FOR EXAM: mammographic abnormality. PROCEDURE: US BREAST LIMITED LEFT: OCTOBER 31, 2019 - Prior study comparison: September 13, 2019, bilateral MG breast tomosynthesis bl scr performed at [facility]. September 01, 2018, left breast MG breast tomosynthesis left performed at [facility]. July 29, 2018, bilateral MG breast tomosynthesis bl scr performed at [facility]. July 28, 2017, bilateral MG breast tomosynthesis bl scr performed at [facility]. . FINDINGS: 79-year-old female who is recalled from a screening mammogram for a mass in the left breast. Sonographic images of the left breast at 4:00 position 3 cm no nipple demonstrate the mammographic abnormality. The mass is a hypoechoic irregular vascular mass. It measures 1.4 x 1.3 x 0.9 cm. The left axilla demonstrates no adenopathy. IMPRESSION: Mass for which the patient was recalled correlates to a suspicious sonographic mass. Ultrasound-guided biopsy is recommended for further evaluation. The findings and recommendations were discussed with the patient the time of interpretation. She will see Dr. Ventura for surgical consultation on 11/04/2019 at 9:30 AM with a biopsy scheduled for 11/09/2019 at 1:00 PM. A voicemail was left for Kala in 's office in regards to these recommendations. ASSESSMENT: Category 4 Suspicious RECOMMENDATION: Surgical consultation. Ultrasound guided core biopsy of the left breast. . Report Dictated on --- Final --- Signed Date and Time: 10/31/2019 4:15 pm Signed by: MD KEL, [facility] [place], [facility] DIGITAL SCREEN [facility] 09-13-2019 Patient Name: ALBINA BROWN ---Mammography--- Exam Date/Time 09/13/2019 12:07:19 EDT Exam MG Breast Tomosynthesis BI Scr Ordering Physician ABDIEL BELTRÁN Accession Number [id number] CPT4 Codes 42836 (MG Breast Tomosynthesis Scr Bl), 98960 (MG MAMMO 2D SCREENING) Reason For Exam routine Report TIME SINCE LAST MAMMOGRAM: Last mammogram was performed 1 year and 1 month ago. REASON FOR EXAM: screening, asymptomatic. PROCEDURE: MG BREAST TOMOSYNTHESIS BL SCR: SEPTEMBER 13, 2019 - 2D/3D Procedure 3D Bilateral CC and MLO view(s) were taken. 2D Bilateral CC and MLO view(s) were taken. Technologist: Mary Beth Holt (Tj.) Prior study comparison: September 01, 2018, left breast MG breast tomosynthesis left performed at [facility]. July 29, 2018, bilateral MG breast tomosynthesis bl scr performed at [facility]. May 28, 2015, bilateral screening mammogram performed at [facility]. May 29, 2014, bilateral screening mammogram performed at [facility]. TISSUE DENSITY: BIRADS B - There are scattered fibroglandular densities. . FINDINGS: There are multiple bilateral circumscribed masses compatible with benign process. One of these masses in the central lateral position of the left breast appears dominant. There may be some associated distortion and spiculation. Targeted ultrasound evaluation is recommended. No mammographic evidence of malignancy in the right breast. Markings on images: BB's = Nipples; skin lesions Open fond du lac = Palpable Line = Scar 2D digital mammography and tomosynthesis imaging were performed and reviewed with CAD. ASSESSMENT: Category 0 Incomplete: need additional imaging evaluation RECOMMENDATION: Ultrasound of the left breast. --- Final --- Signed Date and Time: 09/13/2019 3:10 pm Signed by: MD KEL, [facility] [place] Incoming Radiology Results From [facility] - 09/13/2019 3:23 PM EDT Patient Name: ALBINA BROWN ---Mammography--- Exam Date/Time 09/13/2019 12:07:19 EDT Exam MG Breast Tomosynthesis BI Scr Ordering Physician ABDIEL BELTRÁN Accession Number [id number] CPT4 Codes 48417 (MG Breast Tomosynthesis Scr Bl), 47881 (MG MAMMO 2D SCREENING) Reason For Exam routine Report TIME SINCE LAST MAMMOGRAM: Last mammogram was performed 1 year and 1 month ago. REASON FOR EXAM: screening, asymptomatic. PROCEDURE: MG BREAST TOMOSYNTHESIS BL SCR: SEPTEMBER 13, 2019 - 2D/3D Procedure 3D Bilateral CC and MLO view(s) were taken. 2D Bilateral CC and MLO view(s) were taken. Technologist: Mary Beth Holt) Prior study comparison: September 01, 2018, left breast MG breast tomosynthesis left performed at [facility]. July 29, 2018, bilateral MG breast tomosynthesis bl scr performed at [facility]. May 28, 2015, bilateral screening mammogram performed at [facility]. May 29, 2014, bilateral screening mammogram performed at [facility]. TISSUE DENSITY: BIRADS B - There are scattered fibroglandular densities. . FINDINGS: There are multiple bilateral circumscribed masses compatible with benign process. One of these masses in the central lateral position of the left breast appears dominant. There may be some associated distortion and spiculation. Targeted ultrasound evaluation is recommended. No mammographic evidence of malignancy in the right breast. Markings on images: BB's = Nipples; skin lesions Open fond du lac = Palpable Line = Scar 2D digital mammography and tomosynthesis imaging were performed and reviewed with CAD. ASSESSMENT: Category 0 Incomplete: need additional imaging evaluation RECOMMENDATION: Ultrasound of the left breast. --- Final --- Signed Date and Time: 09/13/2019 3:10 pm Signed by: MD KEL, [place], [place] Vital Signs Date Time Vital Sign Value Performing Clinician Facility 12-20-2023 02:40-0400 Diastolic blood pressure 46 mm[Hg] Yen Tidwell MD Work Phone: [facility] 12-20-2023 02:40-0400 Heart rate 74 /min Yen Tidwell MD Work Phone: [facility] 12-20-2023 02:40-0400 Respiratory rate 16 /min Yen Tidwell MD Work Phone: [facility] 12-20-2023 02:40-0400 SaO2% (BldA) [Mass fraction] 100 % Yen Tidwell MD Work Phone: [facility] 12-20-2023 02:40-0400 Systolic blood pressure 127 mm[Hg] Yen Tidwell MD Work Phone: [facility] 12-19-2023 23:25-0400 Body height 160 cm Yen Tidwell MD Work Phone: [facility] 12-19-2023 23:25-0400 Body mass index (BMI) [Ratio] 26.04 kg/m2 Yen Tidwell MD Work Phone: [facility] 12-19-2023 23:25-0400 Body temperature 99.5 [degF] Yen Tidwell MD Work Phone: [facility] 12-19-2023 23:25-0400 Body weight 66.68 kg Yen Tidwell MD Work Phone: [facility] 09-03-2023 14:52-0400 Body height 162.6 cm Brian Carlson MD Work Phone: [facility] 09-03-2023 14:52-0400 Body mass index (BMI) [Ratio] 29.35 kg/m2 Brian Carlson MD Work Phone: [facility] 09-03-2023 14:52-0400 Body temperature 96.8 [degF] Brian Carlson MD Work Phone: [facility] 09-03-2023 14:52-0400 Body weight 77.56 kg Brian Carlson MD Work Phone: [facility] 09-03-2023 14:52-0400 Diastolic blood pressure 75 mm[Hg] Brian Carlson MD Work Phone: [facility] 09-03-2023 14:52-0400 Heart rate 85 /min Brian Carlson MD Work Phone: [facility] 09-03-2023 14:52-0400 SaO2% (BldA) [Mass fraction] 97 % Brian Carlson MD Work Phone: [facility] 09-03-2023 14:52-0400 Systolic blood pressure 145 mm[Hg] Brian Carlson MD Work Phone: [facility] 07-28-2023 16:00-0400 Body height 160 cm Othello Dennis DO Work Phone: [facility] 07-28-2023 16:00-0400 Body temperature 99.3 [degF] Othello Dennis DO Work Phone: [facility] 07-28-2023 16:00-0400 Body weight 80.74 kg Othello Dennis DO Work Phone: [facility] 07-28-2023 16:00-0400 Diastolic blood pressure 80 mm[Hg] Othello Dennis DO Work Phone: [facility] 07-28-2023 16:00-0400 Heart rate 74 /min Madyson Dennis DO Work Phone: [facility] 07-28-2023 16:00-0400 SaO2% (BldA) [Mass fraction] 98 % Othello Dennis DO Work Phone: [facility] 07-28-2023 16:00-0400 Systolic blood pressure 148 mm[Hg] Madyson Dennis DO Work Phone: [facility] 06-16-2023 13:25-0500 Body height 160 cm Othello Dennis DO Work Phone: [facility] 06-16-2023 13:25-0500 Body temperature 97.39 [degF] Madyson Dennis DO Work Phone: [facility] 06-16-2023 13:25-0500 Body weight 80.74 kg Madyson Dennis DO Work Phone: [facility] 06-16-2023 13:25-0500 Diastolic blood pressure 74 mm[Hg] Madyson Dennis DO Work Phone: [facility] 06-16-2023 13:25-0500 Heart rate 74 /min Madyson Dennis DO Work Phone: [facility] 06-16-2023 13:25-0500 SaO2% (BldA) [Mass fraction] 97 % Madyson Dennis DO Work Phone: [facility] 06-16-2023 13:25-0500 Systolic blood pressure 118 mm[Hg] Madyson Dennis DO Work Phone: [facility] 03-24-2023 16:05-0500 Body height 160 cm Madyson Dennis DO Work Phone: [facility] 03-24-2023 16:05-0500 Body temperature 98.1 [degF] Madyson Dennis DO Work Phone: [facility] 03-24-2023 16:05-0500 Body weight 77.11 kg Madyson Dennis DO Work Phone: [facility] 03-24-2023 16:05-0500 Diastolic blood pressure 70 mm[Hg] Madyson Dennis DO Work Phone: [facility] 03-24-2023 16:05-0500 Heart rate 87 /min Othello Dennis DO Work Phone: [facility] 03-24-2023 16:05-0500 SaO2% (BldA) [Mass fraction] 97 % Othello Dennis DO Work Phone: [facility] 03-24-2023 16:05-0500 Systolic blood pressure 124 mm[Hg] Othello Denins DO Work Phone: [facility] 03-06-2023 09:25-0500 Body temperature 97 [degF] Humphrey Velasquez MD Work Phone: [facility] 03-06-2023 09:25-0500 Diastolic blood pressure 47 mm[Hg] Humphrey Velasquez MD Work Phone: [facility] 03-06-2023 09:25-0500 Heart rate 66 /min Humphrey Velasquez MD Work Phone: [facility] 03-06-2023 09:25-0500 Respiratory rate 16 /min Humphrey Velasquez MD Work Phone: [facility] 03-06-2023 09:25-0500 SaO2% (BldA) [Mass fraction] 94 % Humphrey Velasquez MD Work Phone: [facility] 03-06-2023 09:25-0500 Systolic blood pressure 117 mm[Hg] Humphrey Velasquez MD Work Phone: [facility] 02-28-2023 09:37-0500 Body height 162.6 cm Humphrey Velasquez MD Work Phone: [facility] 02-27-2023 23:33-0500 Body mass index (BMI) [Ratio] 27.78 kg/m2 Humphrey Velasquez MD Work Phone: [facility] 02-27-2023 23:33-0500 Body weight 73.4 kg Humphrey Velasquez MD Work Phone: [facility] 02-10-2023 07:52-0400 Body temperature 98.01 [degF] Ana Seymour MD Work Phone: [facility] 02-10-2023 07:52-0400 Diastolic blood pressure 78 mm[Hg] Ana Seymour MD Work Phone: [facility] 02-10-2023 07:52-0400 Heart rate 72 /min Ana Seymour MD Work Phone: [facility] 02-10-2023 07:52-0400 Respiratory rate 17 /min Ana Seymour MD Work Phone: [facility] 02-10-2023 07:52-0400 SaO2% (BldA) [Mass fraction] 96 % Ana Seymour MD Work Phone: [facility] 02-10-2023 07:52-0400 Systolic blood pressure 140 mm[Hg] Ana Seymour MD Work Phone: [facility] 12-12-2022 16:24-0400 Body height 160 cm Othello Dennis DO Work Phone: [facility] 12-12-2022 16:24-0400 Body temperature 98.29 [degF] Madyson Dennis DO Work Phone: [facility] 12-12-2022 16:24-0400 Body weight 76.66 kg Madyson Dennis DO Work Phone: [facility] 12-12-2022 16:24-0400 Diastolic blood pressure 70 mm[Hg] Othello Dennis DO Work Phone: [facility] 12-12-2022 16:24-0400 Heart rate 65 /min Othello Dennis DO Work Phone: [facility] 12-12-2022 16:24-0400 SaO2% (BldA) [Mass fraction] 96 % Othello Dennis DO Work Phone: [facility] 12-12-2022 16:24-0400 Systolic blood pressure 122 mm[Hg] Othello Dennis DO Work Phone: [facility] 08-28-2022 14:53-0400 Body height 155.6 cm Brian Carlson MD Work Phone: [facility] 08-28-2022 14:53-0400 Body mass index (BMI) [Ratio] 31.26 kg/m2 Brian Carlson MD Work Phone: [facility] 08-28-2022 14:53-0400 Body temperature 97.3 [degF] Brian Carlson MD Work Phone: [facility] 08-28-2022 14:53-0400 Body weight 75.66 kg Brian Carlson MD Work Phone: [facility] 08-28-2022 14:53-0400 Diastolic blood pressure 79 mm[Hg] Brian Carlson MD Work Phone: [facility] 08-28-2022 14:53-0400 Heart rate 88 /min Brian Carlson MD Work Phone: [facility] 08-28-2022 14:53-0400 SaO2% (BldA) [Mass fraction] 97 % Brian Carlson MD Work Phone: [facility] 08-28-2022 14:53-0400 Systolic blood pressure 157 mm[Hg] Brian Carlson MD Work Phone: [facility] 07-04-2022 16:18-0400 Body height 160 cm Madyson Dennis DO Work Phone: [facility] 07-04-2022 16:18-0400 Body weight 73.94 kg Othello Dennis DO Work Phone: [facility] 07-04-2022 16:18-0400 Diastolic blood pressure 70 mm[Hg] Othello Dennis DO Work Phone: [facility] 07-04-2022 16:18-0400 Heart rate 71 /min Othello Dennis DO Work Phone: [facility] 07-04-2022 16:18-0400 SaO2% (BldA) [Mass fraction] 98 % Othello Dennis DO Work Phone: [facility] 07-04-2022 16:18-0400 Systolic blood pressure 120 mm[Hg] Othello Dennis DO Work Phone: [facility] 05-08-2022 17:48-0500 Body height 160 cm Anabell Wormald PA-C Work Phone: [facility] 05-08-2022 17:48-0500 Body temperature 97.5 [degF] Anabell Wormald PA-C Work Phone: [facility] 05-08-2022 17:48-0500 Body weight 78.02 kg Anabell Wormald PA-C Work Phone: [facility] 05-08-2022 17:48-0500 Diastolic blood pressure 63 mm[Hg] Anabell Wormald PA-C Work Phone: [facility] 05-08-2022 17:48-0500 Heart rate 75 /min Anabell Wormald PA-C Work Phone: [facility] 05-08-2022 17:48-0500 Respiratory rate 16 /min Anabell Wormald PA-C Work Phone: [facility] 05-08-2022 17:48-0500 SaO2% (BldA) [Mass fraction] 98 % Anabell Wormald PA-C Work Phone: [facility] 05-08-2022 17:48-0500 Systolic blood pressure 117 mm[Hg] Anabell Wormald PA-C Work Phone: [facility] 01-03-2022 16:09-0400 Diastolic blood pressure 80 mm[Hg] Madyson Dennis DO Work Phone: [facility] 01-03-2022 16:09-0400 Systolic blood pressure 120 mm[Hg] Madyson Dennis DO Work Phone: [facility] 01-03-2022 15:51-0400 Body height 160 cm Othello Dennis DO Work Phone: [facility] 01-03-2022 15:51-0400 Body temperature 97.39 [degF] Madyson Dennis DO Work Phone: [facility] 01-03-2022 15:51-0400 Body weight 73.48 kg Madyson Dennis DO Work Phone: [facility] 01-03-2022 15:51-0400 Heart rate 63 /min Madyson Dennis DO Work Phone: [facility] 01-03-2022 15:51-0400 SaO2% (BldA) [Mass fraction] 98 % Madyson Dennis DO Work Phone: [facility] 04-01-2021 16:05-0500 Body temperature 98.29 [degF] Madyson Dennis DO Work Phone: [facility] 04-01-2021 16:05-0500 Body weight 68.95 kg Madyson Dennis DO Work Phone: [facility] 04-01-2021 16:05-0500 Diastolic blood pressure 86 mm[Hg] Madyson Dennis DO Work Phone: [facility] 04-01-2021 16:05-0500 Heart rate 64 /min Othello Dennis DO Work Phone: [facility] 04-01-2021 16:05-0500 SaO2% (BldA) [Mass fraction] 98 % Madyson Dennis DO Work Phone: [facility] 04-01-2021 16:05-0500 Systolic blood pressure 130 mm[Hg] Madyson Dennis DO Work Phone: [facility] 11-29-2020 15:13-0400 Body height 160 cm Othello Dennis DO Work Phone: [facility] 11-29-2020 15:13-0400 Body temperature 98.49 [degF] Madyson Dennis DO Work Phone: [facility] 11-29-2020 15:13-0400 Body weight 70.67 kg Madyson Dennis DO Work Phone: [facility] 11-29-2020 15:13-0400 Diastolic blood pressure 78 mm[Hg] Othello Dennis DO Work Phone: [facility] 11-29-2020 15:13-0400 Heart rate 73 /min Othello Dennis DO Work Phone: [facility] 11-29-2020 15:13-0400 SaO2% (BldA) [Mass fraction] 97 % Othello Dennis DO Work Phone: [facility] 11-29-2020 15:13-0400 Systolic blood pressure 122 mm[Hg] Othello Dennis DO Work Phone: [facility] 11-18-2019 12:21-0400 Body Temperature 97.59 [degF] [facility] [place] [facility] 12:21-0400 BP Diastolic 68 mm[Hg] [facility] , [place] 11-18-2019 12:21-0400 BP Systolic 141 mm[Hg] [place] 11-18-2019 12:21-0400 Pulse (Heart Rate) 70 /min [place], [place] 11-18-2019 12:21-0400 Pulse Oximetry 97 % [facility] , [place] 11-18-2019 12:21-0400 Respiratory Rate 16 /min [facility] 11-18-2019 12:03-0400 BMI (Body Mass Index) 31.75 kg/m2 Thony Coreas [facility], [place] 11-18-2019 12:03-0400 Body weight 81.31 [facility] [place] 11-18-2019 [id number] Height 160 cm [place] [place] Encounters Encounter Date Encounter Type Care Provider Facility Start: 11-28-2024 ambulatory Ольга ENGLISH Facil ity:[facility] Start: 10-05-2024 ambulatory Ольга ENGLISH Facil ity:[facility] Start: 08-01-2024 End: 08-01-2024 ambulatory Ольга ENGLISH [facility] Work Phone: Start: 08-01-2024 End: 08-01-2024 Departed Referred Ольга [facility] -[facility] [address] Start: 08-01-2024 End: 08-01-2024 ambulatory Ольга ENGLISH Facility:[facility] Start: 04-11-2024 End: 04-11-2024 ambulatory Ольга ENGLISH Facility:[facility] Start: 03-31-2024 End: 03-31-2024 ambulatory Ольга ENGLISH Facility:[facility] Start: 01-04-2024 End: 01-04-2024 ambulatory Ken Suárezate [facility] [place] Start: 01-04-2024 End: 01-04-2024 [facility] [place] Comment on above: Population Health Na vigation Outreach (Medication Adherence ) Start: 12-20-2023 End: 12-20-2023 Subsequent hospital visit by physician [facility] Exam Room [address] [facility] [address] Comment on above: Arrived Start: 12-20-2023 End: 12-20-2023 Emergency department patient visit YEN TIDWELL [facility] Start: 12-19-2023 End: 12-20-2023 Emergency department patient visit Yen Tidwell MD Work Phone: [facility] Comment on above: Head injury, initial encounter (Primary Dx); Fall, initial encounter; Uses walker; Moderate dementia without behavioral disturbance, psychotic disturbance, mood disturbance, or anxiety, unspecified dementia type (HCC); 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 Start: 12-03-2023 Refill Madyson Andradear anastacio MunizDennis DO Work Phone: [facility] Comment on above: Refill Request Start: 11-19-2023 Refill Madyson Collins DO Work Phone: [facility] Comment on above: Refill Request Start: 10-09-2023 Refill Madyson Collins DO Work Phone: [facility] Comment on above: Refill Request Start: 10-02-2023 ambulatory Abi Bowens [facility] Start: 10-02-2023 Patient encounter procedure Abi Bowens [facility] Comment on above: Population Health Na vigation Outreach ([place] Attributed Member- Needs 2023 Medicare Wellness Appt Scheduled/) Start: 09-03-2023 End: 09-03[facility] Start: 09-03-2023 End: 09-03-2023 Office outpatient visit 15 minutes Brian Carlson MD Work Phone: [facility] Comment on above: Malignant neoplasm o f lower-outer quadrant of left breast of female, estrogen receptor positive (HCC) Start: 08-04-2023 Telephone encounter Madyson Collins DO Work Phone: [facility] Comment on above: Consult (Consult to physical therapy, recurrent falls confirm [id number]) Start: 07-28-2023 End: 07-28-2023 Patient encounter procedure Madyson Collins DO Work Phone: [facility] Comment on above: Dementia with behavi oral disturbance (HCC) (Primary Dx); Recurrent falls; Hallucinations; SunDown syndrome; Class 1 obesity with body mass index (BMI) of 31.0 to 31.9 in adult, unspecified obesity type, unspecified whether serious comorbidity present Start: 07-28-2023 End: 07-28-2023 ambulatory MADYSON KAYLEE COLLINS Facility:[facility] Start: 06-16-2023 ambulatory MADYSON FELI COLLINS Facility:[facility] Start: 06-16-2023 End: 06-16-2023 Subsequent hospital visit by physician Us Ornelas 1 [facility] [employer] Comment on above: Generalized edema [R 60.1] Start: 06-16-2023 End: 06-16-2023 Patient encounter procedure Madyson Collins DO Work Phone: [facility] Comment on above: Hallucinations (Prim vandana Dx); Systolic murmur; Dementia with behavioral disturbance (HCC); SunDown syndrome; Generalized edema; At risk for falling; Class 1 obesity with body mass index (BMI) of 31.0 to 31.9 in adult, unspecified obesity type, unspecified whether serious comorbidity present Start: 06-16-2023 End: 06-16-2023 ambulatory BRIGHTON KAYLEE COLLINS Facility:[facility] Start: 05-25-2023 Refill Madyson Collins DO Work Phone: [facility] Comment on above: Refill Request Start: 04-29-2023 End: 04-29-2023 ambulatory BRIGHTON KAYLEE DENNIS Facility:[facility] Start: 04-03-2023 End: 04-03-2023 ambulatory MADYSON COLLINS Facility:[facility] Start: 03-30-2023 Telephone encounter Madyson Collins DO Work Phone: [facility] Start: 03-24-2023 End: 03-24-2023 Patient encounter procedure Madyson Collins DO Work Phone: [facility] Comment on above: GERD without esophag itis (Primary Dx); Hyperlipidemia, mixed; Dementia without behavioral disturbance (HCC); Other depression; Hearing loss of left ear, unspecified hearing loss type; SunDown syndrome; Obesity, Class I, BMI 30-34.9 Start: 03-24-2023 End: 03-24-2023 ambulatory BRIGHTON KAYLEE COLLINS Facility:[facility] Start: 02-27-2023 End: 03-06-2023 Evaluation and management of inpatient Humphrey Velasquez MD Work Phone: [facility] Medical Surgical Unit MSU 1E Comment on above: Failure to thrive in adult (Primary Dx) Start: 02-20-2023 Telephone encounter Madyson Collins DO Work Phone: [facility] Comment on above: Patient Update Start: 02-04-2023 End: 02-10-2023 ambulatory [facility] Start: 02-04-2023 End: 02-10-2023 Emergency department patient visit Ana Seymour MD Work Phone: [facility] Medical Surgical Unit MSU 1E Comment on above: Advancing dementia ( HCC) (Primary Dx) Start: 12-12-2022 End: 12-12-2022 ambulatory MADYSON COLLINS Facility:[facility] Start: 12-12-2022 End: 12-12-2022 Patient encounter procedure Madyson Collins DO [facility] Phone: [facility] Comment on above: Age-related cognitiv e decline (Primary Dx); Hyperlipidemia, mixed; Bilateral leg edema; Anxiety with depression; Varicose veins of bilateral lower extremities with other complications; Female stress incontinence; Overweight with body mass index (BMI) of 29 to 29.9 in adult; Screening for thyroid disorder Start: 09-30-2022 Refill Madyson Andradevenecia Collins DO Work Phone: [facility] Comment on above: Refill Request Start: 08-28-2022 End: 08-28-2022 Office outpatient visit 15 minutes Brian Carlson MD Work Phone: [facility] Comment on above: Malignant neoplasm o f lower-outer quadrant of left breast of female, estrogen receptor positive (HCC) Start: 08-13-2022 MC Get Medical Advice Madysonmilena Collins DO Work Phone: [facility] Comment on above: PT/OT Order For Albina Bronw Start: 07-04-2022 End: 07-04-2022 Patient encounter procedure Madyson Andrademoe Collins DO Work Phone: [facility] Comment on above: Mixed hyperlipidemia (Primary Dx); Dementia without behavioral disturbance (HCC); Anxiety with depression; BMI 28.0-28.9,adult Start: 06-23-2022 Refill Kailyn Jimenes [facility] Comment on above: Malignant neoplasm o f lower-outer quadrant of left breast of female, estrogen receptor positive (HCC) Start: 06-12-2022 Telephone encounter Othellomilena Collins DO Work Phone: [facility] Comment on above: Patient Question Start: 05-08-2022 End: 05-08-2022 Patient encounter procedure Anabell Gonzalez PA-C Work Phone: [facility] Comment on above: Cellulitis of right arm (Primary Dx); Cat scratch Start: 04-25-2022 Telephone encounter Chucho celeste MD Work Phone: [facility] Comment on above: Cancelled Appointmen t Start: 03-25-2022 ambulatory Othello Feli Collins DO Work Phone: [facility] Comment on above: Aricept 23mg Start: 01-06-2022 [facility] Start: 01-03-2022 End: 01-03-2022 Patient encounter procedure Madyson Collins DO Work Phone: [facility] Comment on above: Forgetfulness (Prima ry Dx); Dementia without behavioral disturbance, unspecified dementia type; Hyperlipidemia, mixed; Abnormal mammogram Start: 01-01-2022 Telephone encounter Madyson Collins DO Work Phone: [facility] Comment on above: Appointment ( 022) Start: 12-27-2021 Telephone encounter Madyson Collins DO Work Phone: [facility] Comment on above: Orders Start: 12-25-2021 Refill Madyson Feli Collins DO Work Phone: [facility] Comment on above: Refill Request Start: 12-25-2021 ambulatory BRIAN CARLSON [facility] Start: 12-25-2021 End: 12-25-2021 Subsequent hospital visit by physician Brian Carlson MD Work Phone: [facility] Comment on above: Malignant neoplasm o f lower-outer quadrant of left breast of female, estrogen receptor positive (HCC); Abnormal mammogram Start: 11-26-2021 ambulatory [facility] Start: 11-26-2021 End: 11-26-2021 Subsequent hospital visit by physician Brian Carlson MD Work Phone: [facility] Comment on above: Arrived Start: 11-23-2021 Refill Madyson Munizrio DO Work Phone: [facility] Comment on above: Refill Request Start: 10-07-2021 Telephone encounter Madyson Collins DO Work Phone: [facility] Comment on above: Medication Problem Start: 10-04-2021 Refill Madyson Collins DO Work Phone: [facility] Comment on above: Refill Request Start: 06-28-2021 Refill Madyson Collins DO Work Phone: [facility] Comment on above: Refill Request Start: 04-01-2021 End: 04-01-2021 Patient encounter procedure Madyson Collins DO Work Phone: [facility] Comment on above: Memory loss (Primary Dx) Start: 12-04-2020 End: 12-04-2020 Telephone encounter Madyson Collins DO Work Phone: [facility] Comment on above: Opened In Error Start: 11-29-2020 End: 11-29-2020 Patient encounter procedure Madyson Collins DO Work Phone: [facility] Comment on above: Anxiety with depress ion (Primary Dx); Hyperlipidemia, mixed; GERD without esophagitis; Nausea; Screening for thyroid disorder Start: 11-21-2020 End: 11-21-2020 Subsequent hospital visit by physician Thony Ventura MD Work Phone: [facility] Comment on above: Arrived Start: 12-22-2019 End: 12-22-2019 Subsequent hospital visit by physician Brian Carlson Work Phone: [facility] Comment on above: Malignant neoplasm o f lower-outer quadrant of left breast of female, estrogen receptor positive (HCC); 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 Start: 11-21-2019 End: 11-21-2019 Subsequent hospital visit by physician Thony Ventura Work Phone: [facility] Comment on above: Arrived Start: 11-18-2019 End: 11-18-2019 Subsequent hospital visit by physician Thony Ventura Work Phone: [facility] Comment on above: Arrived Start: 11-09-2019 End: 11-09-2019 Subsequent hospital visit by physician Thony Ventura Work Phone: [facility] Comment on above: Arrived Start: 10-31-2019 End: 10-31-2019 Subsequent hospital visit by physician Abdiel Beltrán Work Phone: [facility] Comment on above: Arrived Start: 09-13-2019 End: 09-13-2019 Subsequent hospital visit by physician Abdiel Beltrán Work Phone: [facility] Comment on above: Arrived Procedures Date Procedure Procedure Detail Performing Clinician Start: 12-20-2023 Radiologic examinati on pelvis 1/2 views Yen Tidwell MD Work Phone: Start: 12-20-2023 Radiologic exam ches t single view Yen Tidwell MD Work Phone: Start: 12-20-2023 Ct cervical spine w/ o contrast material Yen Tidwell MD Work Phone: Start: 12-20-2023 Ct head/brain w/o co ntrast material Yen Tidwell MD Work Phone: Start: 12-20-2023 Basic metabolic pane l calcium total Yen Tidwell MD Work Phone: Start: 12-20-2023 Ecg routine ecg w/le ast 12 lds trcg only w/o i&r Yen Tidwell MD Work Phone: Start: 06-16-2023 Dup-scan xtr veins unilateral/limited study Othello Kayleemoe Collins DO Work Phone: Start: 03-05-2023 Basic metabolic pane l calcium total Mayank Vogt DO Work Phone: Start: 03-04-2023 Basic metabolic pane l calcium total Mayank Vogt DO Work Phone: Start: 03-03-2023 Basic metabolic pane l calcium total Mayank Vogt DO Work Phone: Start: 03-02-2023 Basic metabolic pane l calcium total Mayank Vogt DO Work Phone: Start: 03-01-2023 Basic metabolic pane l calcium total Mayank Vogt DO Work Phone: Start: 02-28-2023 Assay of troponin quantitative Humphrey Velasquez MD Work Phone: Start: 02-27-2023 Culture bacterial quanttative colony count urine Humphrey Velasquez MD Work Phone: Start: 02-27-2023 Urinalysis complete panel - Urine Humphrey Velasquez MD Work Phone: Start: 02-27-2023 Comprehensive metabo lic panel Humphrey Velasquez MD Work Phone: Start: 02-27-2023 Ct head/brain w/o co ntrast material Humphrey Velasquez MD Work Phone: Start: 02-27-2023 Ecg routine ecg w/le ast 12 lds trcg only w/o i&r Humphrey Velasquez MD Work Phone: Start: 02-27-2023 Radiologic exam ches t single view Humphrey Velasquez MD Work Phone: Start: 02-06-2023 Comprehensive metabo lic panel Stephane Grider MD Work Phone: Start: 02-05-2023 Ct head/brain w/o co ntrast material John Mai MD Work Phone: Start: 02-05-2023 Comprehensive metabo lic panel Stephane Grider MD Work Phone: Start: 02-04-2023 25 hydroxy includes fractions if performed John Mai MD Work Phone: Start: 02-04-2023 Culture bacterial quanttative colony count urine Ana Seymour MD Work Phone: Start: 02-04-2023 Urinalysis complete panel - Urine Ana Seymour MD Work Phone: Start: 02-04-2023 Basic metabolic pane l calcium total Ana Seymour MD Work Phone: Start: 12-25-2021 Us breast uni real t niya with image limited Brian Carlson MD Work Phone: Start: 12-25-2021 Diagnostic mammograp hy computer-aided detcj uni Brian Carlson MD Work Phone: Start: 11-29-2020 Adult depression scr eening assessment [facility] DO Work Phone: Start: 11-21-2020 Diagnostic mammograp hy computer-aided detcj bi Thony Ventura MD Work Phone: Start: 12-22-2019 Dxa bone density carlos dy 1/> sites axial skel Brian Carlson Work Phone: Start: 11-21-2019 Radiological examina tion surgical specimen Thony Ventura Work Phone: Start: 11-21-2019 Diagnostic mammograp hy computer-aided detcj uni Thony Ventura Work Phone: Start: 11-21-2019 Perq breast loc loraine ce placemt 1st lesio us imag Thony Ventura Work Phone: Start: 11-18-2019 Ecg routine ecg w/le ast 12 lds w/i&r Thony Ventura Work Phone: Start: 11-18-2019 Blood count complete auto&auto difrntl wbc Thony Ventura Work Phone: Start: 11-18-2019 Blood count complete automated Thony Ventura Work Phone: Start: 11-09-2019 Diagnostic mammograp hy computer-aided detcj uni Thony Ventura Work Phone: Start: 11-09-2019 US GUIDED LEFT BREAS T BIOPSY Thony Ventura Work Phone: Start: 10-31-2019 Us breast uni real t niya with image limited Abdiel Beltrán Work Phone: Start: 09-13-2019 Screening digital br east tomosynthesis bi Abdiel Beltrán Work Phone: Plan of Treatment Date Care Activity Detail Author Start: 07-27-2027 DTaP/Tdap/Td vaccine (2 - Td or Tdap) DTaP/Tdap/Td vaccine (2 - Td or Tdap) [facility] Start: 07-27-2027 DTaP/Tdap/Td vaccine (2 - Td) DTaP/Tdap/Td vaccine (2 - Td) [place] Start: 07-27-2027 DTaP/Tdap/Td Vaccine s (2 - Td or Tdap) DTaP/Tdap/Td Vaccines (2 - Td or Tdap) [facility] Start: 07-27-2027 Urine microalbumin profile [facility] Start: 03-05-2026 Diabetes Screening Diabetes Screenin g [facility] Start: 12-27-2024 DIABETES SCREEN DIABETES SCREEN [facility] Start: 12-27-2024 Diabetes Screening Diabetes Screenin g [facility] Start: 09-01-2024 End: 09-01-2024 Patient encounter procedure 09/01/2024 2:45 PM EDT Office Visit [facility] [address] [place] [address] Brian Carlson MD [address] [facility] [address] [place] [address] [facility] Start: 12-20-2023 COVID-19 Vaccine () COVID-19 Vaccine () [facility] Start: 12-20-2023 Influenza vaccination [facility] Start: 12-04-2023 DIABETES SCREEN DIABETES SCREEN [facility] Start: 09-03-2023 End: 09-03-2023 Patient encounter procedure [facility] Start: 08-31-2023 [facility] Start: 04-20-2023 Advance Directive Discussion Advance Directive Discussion [facility] Start: 04-20-2023 Medicare Advantage Annual Wellness Visit Medicare Advantage Annual Wellness Visit [facility] Start: 12-19-2022 Covid-19 Vaccine ( season) Covid-19 Vaccine ( season) [facility] Start: 12-19-2022 Influenza vaccination C [facility] Start: 12-12-2022 End: 02-11-2023 CBC W Auto Differential panel - Blood CBC + DIFF Lab Routine Hyperlipidemia, mixed Expected: 12/12/2022, Expires: 02/11/2023 [facility] Work Phone: Comment on above: Expected: 12/12/2022 , Expires: 02/11/2023 Start: 12-12-2022 End: 02-11-2023 Comprehensive metabolic 2000 panel - Serum or Plasma COMP METABOLIC PANEL Lab Routine Hyperlipidemia, mixed Expected: 12/12/2022, Expires: 02/11/2023 [facility] Work Phone: Comment on above: Expected: 12/12/2022 , Expires: 02/11/2023 Start: 12-12-2022 End: 02-11-2023 Lipid 1996 panel - Serum or Plasma LIPID PANEL BASIC Lab Routine Hyperlipidemia, mixed Expected: 12/12/2022, Expires: 02/11/2023 [facility] Work Phone: Comment on above: Expected: 12/12/2022 , Expires: 02/11/2023 Start: 12-12-2022 End: 02-11-2023 Thyrotropin [Units/volume] in Serum or Plasma TSH BLD Lab Routine Screening for thyroid disorder Expected: 12/12/2022, Expires: 02/11/2023 [facility] Work Phone: Comment on above: Expected: 12/12/2022 , Expires: 02/11/2023 Start: 12-12-2022 End: 02-11-2023 Urinalysis complete panel - Urine URINALYSIS, WITH MICROSCOPIC Lab Routine Hyperlipidemia, mixed Expected: 12/12/2022, Expires: 02/11/2023 [facility] Work Phone: Comment on above: Expected: 12/12/2022 , Expires: 02/11/2023 Start: 09-01-2022 End: 09-01-2022 Patient encounter procedure 09/01/2022 Office Visit Hematology and Oncology Brian Carlson MD [address] [facility] [place] [address] [facility] [place] Start: 08-28-2022 End: 08-28-2022 Patient encounter procedure 08/28/2022 Office Visit Hematology and Oncology Brian Carlson MD [address] [facility] [place] [address] [facility] Start: 04-20-2022 ADVANCE DIRECTIVE DISCUSSION ADVANCE DIRECTIVE DISCUSSION [facility] Start: 01-06-2022 End: 01-06-2022 Patient encounter procedure [facility] Start: 01-02-2022 End: 01-02-2022 Patient encounter procedure 01/02/2022 Office Visit General Surgery Chucho Means MD [address] [place] [address] [address] [place] [address] [facility] Start: 12-27-2021 End: 02-26-2022 CBC W Auto Differential panel - Blood [facility] Work Phone: Comment on above: Expected: 12/27/2021 , Expires: 02/26/2022 Start: 12-27-2021 End: 02-26-2022 Comprehensive metabolic 2000 panel - Serum or Plasma [facility] Work Phone: Comment on above: Expected: 12/27/2021 , Expires: 02/26/2022 Start: 12-27-2021 End: 02-26-2022 Lipid 1996 panel - Serum or Plasma [facility] Work Phone: Comment on above: Expected: 12/27/2021 , Expires: 02/26/2022 Start: 12-27-2021 End: 02-26-2022 Thyrotropin [Units/volume] in Serum or Plasma [facility] Work Phone: Comment on above: Expected: 12/27/2021 , Expires: 02/26/2022 Start: 12-27-2021 End: 02-26-2022 Urinalysis complete panel - Urine URINALYSIS, WITH MICROSCOPIC Lab Routine Other hyperlipidemia Expected: 12/27/2021, Expires: 02/26/2022 [facility] Work Phone: Comment on above: Expected: 12/27/2021 , Expires: 02/26/2022 Start: 12-21-2021 Screening for osteoporosis Bone Density Scan [facility] Start: 12-19-2021 Influenza vaccination [facility] Start: 12-02-2021 End: 12-02-2021 Patient encounter procedure 12/02/2021 Office Visit Hematology and Oncology Brian Carlson MD [address] [place], [place] [id number] [facility] [place] Start: 11-29-2021 Adult depression screening assessment DEPRESSION SCREENING [facility] Start: 06-17-2021 COVID-19 VACCINE (4 - Booster for Moderna series) COVID-19 VACCINE (4 - Booster for Moderna series) [facility] Start: 04-20-2021 ADVANCE DIRECTIVE DISCUSSION ADVANCE DIRECTIVE DISCUSSION [facility] Start: 04-12-2021 COVID-19 VACCINE (4 - Booster for Moderna series) COVID-19 VACCINE (4 - Booster for Moderna series) [facility] Start: 04-12-2021 COVID-19 VACCINE (4 - Moderna series) COVID-19 VACCINE (4 - Moderna series) [facility] Start: 04-08-2021 End: 04-08-2021 Patient encounter procedure 04/08/2021 Office Visit Hematology and Oncology Brian Carlson MD [address] [place], [place] [id number] [facility] [place] Start: 03-08-2021 COVID-19 Vaccine (2 - Pfizer series) COVID-19 Vaccine (2 - Pfizer series) [facility] Start: 12-21-2020 Screening for osteoporosis Bone Density Scan [facility] Start: 12-19-2020 Influenza vaccination [facility] Work Phone: Start: 12-14-2020 Screening for osteoporosis Bone Density Scan [facility] Start: 01-19-2020 Zoster Vaccines (2 o f 2) Zoster Vaccines (2 of 2) [facility] Start: 12-29-2019 End: 12-29-2019 Office Visit 12/29/2019 Office Visit Hematology and Oncology Brian Carlson MD [address] [facility] [place] [address] [phone] [facility] [place] Start: 12-20-2019 Influenza vaccination M [place], [place] Start: 11-22-2019 Annual Wellness Visi t (AWV) Annual Wellness Visit (AWV) [place] Start: 11-21-2019 End: 11-21-2019 Appointment [facility] Start: 2006 ADVANCE DIRECTIVE DISCUSSION ADVANCE DIRECTIVE DISCUSSION [facility] Start: 2006 BONE DENSITY BONE DENSITY [facility] Start: 2006 Bone Density Screening Bone Density Screening [facility] Start: 2006 Pneumococcal 65+ yea rs Vaccine (1 - PCV) Pneumococcal 65+ years Vaccine (1 - PCV) [facility] Start: 2006 Pneumococcal 65+ yea rs Vaccine (1 of 1 - PPSV23) Pneumococcal 65+ years Vaccine (1 of 1 - PPSV23) [place] Start: 2006 Pneumococcal Vaccine : 65+ (1 - PCV) Pneumococcal Vaccine: 65+ (1 - PCV) [facility] Start: 2006 Pneumococcal Vaccine : 65+ (1 of 1 - PCV) Pneumococcal Vaccine: 65+ (1 of 1 - PCV) [facility] Start: 2006 Pneumococcal Vaccine : 65+ Years (1 - PCV) Pneumococcal Vaccine: 65+ Years (1 - PCV) [facility] Start: 2006 Pneumococcal Vaccine : 65+ Years (1 of 1 - PCV) Pneumococcal Vaccine: 65+ Years (1 of 1 - PCV) [facility] Start: 2006 PNEUMOCOCCAL: 65+ (1 - PCV) PNEUMOCOCCAL: 65+ (1 - PCV) [facility] Start: 2006 PNEUMOVAX AGE 65 AND OVER WITH 5YR LOOKBACK (#1) PNEUMOVAX AGE 65 AND OVER WITH 5YR LOOKBACK (#1) [facility] Start: 2006 Screening for osteoporosis Bone Density Screening [facility] Start: 2001 RSV Immunization age d 60 or older (1 - 1-dose 60+ series) RSV Immunization aged 60 or older (1 - 1-dose 60+ series) [facility] Start: 2001 RSV Vaccine (1 - 1-d ose 60+ series) RSV Vaccine (1 - 1-dose 60+ series) [facility] Start: 1996 Screening for osteoporosis DEXA (modify frequency per FRAX score) [place], [place] Start: 1991 Screening for malign ant neoplasm of colon [facility] Start: 1991 Shingles Vaccine (1 of 2) Shingles Vaccine (1 of 2) [facility] Start: 1991 SHINGRIX VACCINE (1 of 2) SHINGRIX VACCINE (1 of 2) [facility] Start: 1960 SHINGRIX VACCINE (1 of 2) SHINGRIX VACCINE (1 of 2) [facility] Start: 1960 Urine microalbumin profile DTAP,TDAP,TD (1 - Tdap) [facility] Start: 1953 COVID-19 Vaccine (1) COVID-19 Vaccin e (1) [facility] Work Phone: Start: 1953 Depression Screen Depression Screen [facility] Start: 1953 Depression Screening Depression Scre ening [facility] Start: 1953 Depresssion Monitoring Depresssion M onitoring [facility] Start: 1951 Lipid panel [facility] Start: 1947 PNEUMOCOCCAL: 65+ (1 - PCV) PNEUMOCOCCAL: 65+ (1 - PCV) [facility] Start: 1940 Annual Wellness Visi t (AWV) Annual Wellness Visit (AWV) [facility] Start: 1940 Hepatitis B Vaccines (1 of 3 - 3-dose series) Hepatitis B Vaccines (1 of 3 - 3-dose series) [facility] Start: 1941 Hepatitis C screening Hepatitis C sc reen [facility] Work Phone: Start: 1940 Lipid panel Lipid Panel [facility] Start: 1941 Medicare Advantage Annual Wellness Visit (AWV) Medicare Advantage Annual Wellness Visit (AWV) [facility] Start: 1940 Medicare Annual Wellness (AWV) Medicare Annual Wellness (AWV) [facility] EKG 12 Lead EKG 12 Lead ECG Routine 11/18/2019 12:36 PM EDT [place], [place] End: 03-24-2024 HEARING AIDS HEARING AIDS Audiology Routine Hearing loss of left ear, unspecified hearing loss type 1 Occurrences starting 03/24/2023 until 03/24/2024 [facility] Work Phone: Comment on above: 1 Occurrences starti ng 03/24/2023 until 03/24/2024 End: 11-26-2021 Screening digital breast tomosynthesis bi [facility] Work Phone: Comment on above: Once for 1 Occurrenc es starting 11/26/2021 until 11/26/2021 End: 11-09-2019 Surgical Pathology Surgical Pathology Lab STAT Once for 1 Occurrences starting 11/09/2019 until 11/09/2019 [place] Comment on above: Once for 1 Occurrenc es starting 11/09/2019 until 11/09/2019 Surgical Pathology Surgical Path ology Lab STAT 11/09/2019 1:41 PM EDT [facility] Immunizations Immunization Date Immunization Notes Care Provider Fa [facility] 02-28-2023 Influenza Vac A&B SA Adj quadrivalent (Fluad) vaccine 0.5 mL Humphrey Velasquez MD Work Phone: [facility] 02-15-2021 Pfizer SARS-CoV-2 Vaccination Chucho Means MD Work Phone: [facility] 01-22-2021 influenza (aIIV4) vaccine, age 65+ yr, quadrivalent, PF (FLUAD QUADRIVALENT) Madyson Collins DO Work Phone: [facility] 01-22-2021 influenza virus vacc ine, unspecified formulation Brian Carlson MD Work Phone: [facility] 06-07-2020 COVID-19 vaccine, fu ll dose (MODERNA) Othello Dennis DO Work Phone: [facility] 05-10-2020 COVID-19 vaccine, fu ll dose (MODERNA) Madyson Dennis DO Work Phone: [facility] 01-10-2020 influenza (aIIV4) vaccine, age 65+ yr, quadrivalent, PF (FLUAD QUADRIVALENT) Madyson Dennis DO Work Phone: [facility] 01-09-2019 influenza, high dose seasonal, preservative-free Madyson Dennis DO Work Phone: [facility] 07-26-2017 tetanus toxoid, redu kaity diphtheria toxoid, and acellular pertussis vaccine, adsorbed Abdiel Pluskota [facility] 02-04-2017 influenza, high dose seasonal, preservative-free Madyson Dennis DO Work Phone: [facility] 02-01-2016 influenza, high dose seasonal, preservative-free Madyson Dennis DO Work Phone: [facility] 02-17-2015 influenza, injectabl e, quadrivalent, preservative free Othello Dennis DO Work Phone: [facility] 01-19-2014 influenza, seasonal, injectable, preservative free Madyson Dennis DO Work Phone: [facility] 02-11-1997 influenza, seasonal, injectable Madyson Dennis DO Work Phone: [facility] Payers Date Payer Category Payer Self-pay 2024 Unknown [id number] 2022 Medicare [id number] 2022 Medicaid [id number] 2022 Medicaid [id number] 2019 Unknown [id number] 2019 Unknown [id number] 2018 Unknown [id number] 2014 Medicare MEDICARE MEDICAR E PART A AND B [id number] 2014-Present [phone] [place] [address] [id number] 15236.[facility] 2006 Medicare [id number] 2006 Medicare [id number] 1941 Unknown [id number] 1941 Unknown [id number] 1941 Unknown [id number] Unknown [id number] Unknown [id number] Unknown [id number] Unknown [id number] Unknown [id number] Social History Date Type Detail Facility Start: 01-13-2019 End: 02-07-2022 Tobacco smoking status NHIS Never smoker [facility] Start: 01-13-2019 End: 02-07-2022 Tobacco use and exposure Never used [place], [place] Start: 01-13-2019 End: 04-08-2021 Alcohol intake Current non-drinker of alcohol (finding) [place], [place] Start: 1940 Sex Assigned At Not on file M [place], [place] Start: 09-24-2021 End: 01-03-2022 Exposure to SARS-CoV-2 (event) Not sure [place] Start: 11-29-2020 End: 07-04-2022 Tobacco smoking status SDIS Former smoker [facility] History of tobacco use Cigarette Smoker [facility] Start: 11-29-2020 End: 07-28-2023 Alcohol intake Ex-drinker (finding) [facility] History of tobacco use Current smoker [facility] Start: 12-12-2022 End: 03-24-2023 History of Social function [facility] Start: 12-12-2022 End: 03-24-2023 Tobacco use panel [facility] Adult Depression Screening Assessment 0 [facility] Within the last year , have you been afraid of your partner or ex-partner? No [facility] How often to you hav e a drink containing alcohol? Never [facility] Start: 1940 Sex Assigned At Female C [facility] Start: 04-03-2023 Gender identity Identifies as female gender (finding) [facility] Start: 12-19-2023 Alcoholic beverage intake Lifetime non-drinker (finding) [facility] Tobacco smoking stat us [facility] Unknown if ever smoked [facility] Work Phone: Clinical Notes 11-29-2020 to 01-04-2024 Ken Gimenez MA - 01/04/2024 9:30 AM Steve Arnett RN - 12/20/2023 2:27 AM Steve Arnett RN - 12/20/2023 2:27 AM Steve Arnett RN - 12/20/2023 12:23 AM EDTAttachments Note Date & Type Note Facility 01-04-2024 Note HNO ID: [id number] Author: KEN GIMENEZ MA Service: ? Author Type: Bulk Folder Type: Progress Notes Filed: 01/04/2024 11:11 Note Text: POPULATION HEALTH NAVIGATION OUTREACH Action/FYI Patient is on Medication Adherence List for review of the below medications: ATORVASTATIN 80MG TAB Dispensed: 12/02/2023 12:00 AM Unit strength: 80 Unit form: tablet Days supply: 30 Quantity: 30 tablet Refill due on: 01/01/24 Pharmacy: [facility] [address] [address] [facility] - [phone] [address] [facility] [employer] [facility] [address] Outcome: Per reconciled dispense, medication hasn't been filled since 01/01/24. Medication not on med list - was filled by outside provider Outreach to patient. Left message for patient to call back. Sent GHash.IO message. Reason for Outreach Med Adherence Patient Contacted: Unable or unnecessary to reach patient: Left message MyChart message sent Navigation Signature: Ken Gimenez MA January 04, 2024 9:30 AM [facility] 01-04-2024 History of Presen t illness Narrative POPULATION HEALTH NAVIGATION OUTREACH Action/FYI Patient is on Medication Adherence List for review of the below medications: ATORVASTATIN 80MG TAB Dispensed: 12/02/2023 12:00 AM Unit strength: 80 Unit form: tablet Days supply: 30 Quantity: 30 tablet Refill due on: 01/01/24 Pharmacy: [facility] [place] [address] [address] [facility] [phone] [address] [facility] [address] Outcome: Per reconciled dispense, medication hasn't been filled since 01/01/24. Medication not on med list - was filled by outside provider Outreach to patient. Left message for patient to call back. Sent GHash.IO message. Reason for Outreach Med Adherence Patient Contacted: Unable or unnecessary to reach patient: Left message HyprKeyhart message sent Navigation Signature: Ken Gimenez MA January 04, 2024 9:30 AM documented in this encounter [facility] 01-04-2024 Note Patient Outreach (DYLAN TNAV) ALBINA BROWN ([id number]) 1940 F Date Time Provider Department 01/04/24 KEN GIMENEZ NETCARRIE During your visit today, we recorded the following information about you: Ken Gimenez MA 01/04/2024 11:11 AM Signed POPULATION HEALTH NAVIGATION OUTREACH Action/FYI Patient is on Medication Adherence List for review of the below medications: ATORVASTATIN 80MG TAB Dispensed: 12/02/2023 12:00 AM Unit strength: 80 Unit form: tablet Days supply: 30 Quantity: 30 tablet Refill due on: 01/01/24 Pharmacy: [facility] [address] [address] [facility] [phone] [facility] [address] Outcome: Per reconciled dispense, medication hasn't been filled since 01/01/24. Medication not on med list - was filled by outside provider Outreach to patient. Left message for patient to call back. Sent GHash.IO message. Reason for Outreach Med Adherence Patient Contacted: Unable or unnecessary to reach patient: Left message HyprKeyhart message sent Navigation Signature: Ken Gimenez MA January 04, 2024 9:30 AM Allergies As of Date: 01/04/2024 (No Known Allergies) Date Reviewed: 07/28/2023 Reviewed by: Kailyn Mead LPN - Fully Assessed Reason for Visit: Population Health Navigation Outreach [3910] Cmt: Medication Adherence Prescriptions as of 01/04/2024 - tolterodine ER (DETROL LA) 2 mg 24 hr capsule take 1 capsule by mouth every day - QUEtiapine (SEROQUEL) 25 mg tablet take 1 tablet by mouth everyday at bedtime - citalopram (CELEXA) 40 mg tablet take 1 tablet by mouth every day - donepezil (ARICEPT) 10 mg tablet take 1 tablet by mouth everyday at bedtime - benzonatate (TESSALON PERLES) 100 mg capsule Take 1 capsule by mouth three times a day as needed for cough. - omeprazole (PRILOSEC) 20 mg capsule Take 1 capsule by mouth once daily. - omeprazole (PRILOSEC) 20 mg capsule - donepezil (ARICEPT) 23 mg tablet Take 1 tablet by mouth daily at bedtime. - donepezil (ARICEPT) 5 mg tablet Take 1 tablet by mouth daily at bedtime. - meclizine (ANTIVERT) 25 mg tab Take 1 tablet by mouth three times daily as needed. - multivitamin (MULTIPLE VITAMINS ORAL) Take 1 tablet by mouth once daily. (CENTRUM SILVER ADULT 50+ PO) - ascorbic acid, vitamin C, (VITAMIN C) 500 mg tablet Take 500 mg by mouth. - aspirin 81 mg chewable tablet Take 81 mg by mouth once daily. - Cholecalciferol, Vitamin D3, 25 mcg (1,000 unit) cap Take 1 capsule by mouth. - simvastatin (ZOCOR) 20 mg tablet Take 20 mg by mouth daily at bedtime. - tamoxifen (NOLVADEX) 20 mg tablet Take 20 mg by mouth once daily. - ZINC ACETATE ORAL Take 50 mg by mouth once daily. - vitamin B complex (B COMPLEX-VITAMIN B12 ORAL) Take 1,000 mg by mouth once daily. Meds Comments as of 07/05/2021: 07/05/21 Patient did not bring a list, states all medications are the same. 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 Audrey Arnett RN 12/20/23 0227 [facility] 12-20-2023 Emergency department Note Report to Radha gardner [place]. Audrey Arnett RN 12/20/[address] Tidwell to bedside. Audrey Arnett RN 12/20/23 0023 EMERGENCY DEPARTMENT ENCOUNTER Pt Name: Albina Brown Birthdate 1940 Date of evaluation: 12/19/2023 ED Provider: Yen Tidwlel MD CHIEF COMPLAINT Chief Complaint Patient presents with Fall Head Injury Hematoma s/p fall today HISTORY OF PRESENT ILLNESS (Location/Symptom, Timing/Onset, Context/Setting, Quality, Duration, Modifying Factors, Severity) Note limiting factors. I wore appropriate PPE for the entirety of this encounter. HPI Albina Brown is a 83 y.o. who presents to the emergency department with a trip and fall at her longterm Patient has a history of dementia, failure to thrive in adult, debility. She has a cane at home but she often does not use it. She says her doctor told her that she should use it but she says the most the time she feels pretty stable without the cane. She does not walk with a walker. She takes aspirin ONLY. Past medical history of anxiety depression past surgical history of wisdom tooth extraction bilateral tubal ligation and cataract extraction. Does not smoke does not drink. Family history is unknown. According to EMS, today she had a trip and fall at [facility] while not using her cane. The patient was awake the entire time and immediately called for help. Nursing staff was at the patient's side momentarily and she was awake and alert the entire time. She is at her neurological baseline of being pleasantly demented, she is oriented to person and place but not time. She has an occipital hematoma on the left side of her posterior scalp. She has poor short-term memory. EMS reports that this is her neurological baseline. She has no neck pain no back pain. She denies any chest pain or palpitations prior to the fall. She denies any chest pain or rib cage pain now. She denies any shortness of breath before or after the fall. Denies any abdominal pain before or after the fall. No nausea vomiting or diarrhea. Denies any dysuria, is wearing a diaper. Afebrile, normotensive, normal heart rate. Denies any injury to the extremities and is able to move all 4 extremities without pain. Smiling laughing joking, in good spirits despite circumstances. Review of systems limited by dementia, history obtained through combination of chart review, interview with patient, and EMS report. Nursing Notes were reviewed. Limitations to history: Dementia Outside historians: Chart review and EMS report REVIEW OF SYSTEMS Review of Systems Review of systems limited by dementia, history obtained through combination of chart review, interview with patient, and EMS report. PAST MEDICAL HISTORY Past Medical History: Diagnosis Date Acid reflux Anxiety Breast cancer (HCC) Hyperlipidemia SURGICAL HISTORY Past Surgical History: Procedure Laterality Date BREAST BIOPSY BREAST LUMPECTOMY 11/21/2019 CATARACT EXTRACTION COLONOSCOPY TUBAL LIGATION WISDOM TOOTH EXTRACTION CURRENT MEDICATIONS Previous Medications ASPIRIN 81 MG CHEWABLE TABLET Chew 81 mg in the morning. CITALOPRAM (CELEXA) 20 MG TABLET Take 40 mg by mouth daily. MEMANTINE (NAMENDA) 5 MG TABLET Take 1 tablet (5 mg) by mouth 2 times daily for 7 doses. MEMANTINE (NAMENDA) 5 MG TABLET Take 1 tablet (5 mg) by mouth daily for 7 doses. Do not start before March 10, 2023. TAMOXIFEN (NOLVADEX) 20 MG TABLET Take 1 tablet (20 mg total) by mouth daily. ALLERGIES Patient has no known allergies. FAMILY HISTORY No family history on file. SOCIAL HISTORY Social History Socioeconomic History Marital status: Tobacco Use Smoking status: Never Smokeless tobacco: Never Vaping Use Vaping status: Never Used Substance and Sexual Activity Alcohol use: Never Drug use: Never Social Determinants of Health Transportation Needs: No Transportation Needs (02/27/2023) PRAPARE - Transportation Lack of Transportation (Medical): No Lack of Transportation (Non-Medical): No Intimate Partner Violence: Not At Risk (02/27/2023) Humiliation, Afraid, Rape, and Kick questionnaire Fear of Current or Ex-Partner: No Emotionally Abused: No Physically Abused: No Sexually Abused: No Housing Stability: Low Risk (02/27/2023) Housing Stability Vital Sign Unable to Pay for Housing in the Last Year: No Number of Places Lived in the Last Year: 1 Unstable Housing in the Last Year: No PHYSICAL EXAM ED Triage Vitals [12/19/23 2325] Temp Heart Rate Resp BP 37.5 C (99.5 F) 77 18 125/67 SpO2 Temp Source Heart Rate Source Patient Position 98 % Oral -- -- BP Location FiO2 (%) -- -- Physical Exam General: WDWN elderly adult in NAD. Non-toxic appearing HENT: Occipital hematoma present on the left side of the patient's scalp, no laceration to suture. No active expansion. EOMI with no erythema, swelling or discharge. TMs normal bilaterally with no hemotympanum Nares normal bilaterally with no epistaxis No CSF rhinorrhea or otorrhea No raccoon's eyes No Lockhart sign Face is stable Normal bite alignment Oropharyngeal mucus membranes moist, pink, no exudate. No dental trauma. Neck: Full ROM, supple, no rigidity Cardio: RRR, nl s1 s2 no m/r/g, extremities warm, dry, well perfused, non-edematous, 2+ bilateral radial pulses, 2+ bilateral DP pulses Lungs: CTAB, no wheezes, rales, rhonchi, normal work of breathing, no cough no cyanosis no retractions, SaO2 98% on room air Abdomen: Soft, NT, ND, non-rigid, BS x 4 normal, no flank pain to palpation bilaterally, no CVA tenderness to palpation bilaterally MSK: No midline cervical thoracic or lumbar spine pain to palpation Chest wall stable and nontender. No subcutaneous emphysema or crepitus on the rib cage bilaterally. Pelvis stable and nontender No pain to palpation of any extremity, full range of flexion and extension of all 4 extremities with no pain and no limitation of range of motion whatsoever. No bony deformity noted anywhere. Skin: Warm, dry, pink, no rashes, bruising, or lacerations, no petechiae, no purpura Neuro: Alert, oriented to person and place but not time. Pleasantly demented. Able to answer simple questions and follow simple commands but exhibits subtle deficits when it comes to abstract thinking and executive function. EMS reports that this is the patient's neurological baseline. 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 No dysarthria. No aphasia. No facial droop No pronator drift Negative test of skew bilaterally See full NIHSS below. NIHSS = 1 (loses 1 point for not knowing the month, patient is disoriented to time at baseline, this is her neurological baseline secondary to dementia). DIAGNOSTIC RESULTS RADIOLOGY (Per Emergency Physician): Interpretation per the Radiologist below, if available at the time of this note: XR pelvis 1 or 2 views Final Result No traumatic abnormality throughout the chest. Hiatus hernia PELVIS: TECHNIQUE: AP COMPARISON: 06/02/2013 FINDINGS: There is no evidence for fracture or dislocation. Narrowing about the hip joints. Some narrowing about the sacroiliac joints. Degenerative change within the lower lumbar spine. Osteitis pubis. No bone lesion is identified. There is no soft tissue abnormality. IMPRESSION: No traumatic abnormality throughout the pelvis. Degenerative change. CT HEAD: CLINICAL INDICATION: Trauma with head and neck pain TECHNIQUE: Transaxial CT sequence performed through the head with 3 mm reconstruction. Sagittal and Coronal reconstruction images included. Dose reduction employed with automated exposure control. COMPARISON: 02/27/2023 FINDINGS: Ventricles and Extra-axial spaces: Generalized enlargement of the ventricles and sulci. No abnormal extracerebral collection identified. Cerebral and cerebellar parenchyma: Periventricular low attenuation areas bilaterally, corresponding to chronic microvascular ischemic change. No additional focal mass lesion or evidence for acute infarct throughout the cerebrum or cerebellum. 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 Mucosal thickening remains in the left maxillary sinus and left ethmoid air cells. Mastoid air cells: Normal Visualized Orbits: Normal Calvarium and skull base: No CT evidence for skull fracture. Left posterior parietal scalp hematoma IMPRESSION: Diminished cerebral volume and evidence of chronic microvascular ischemic change without acute intracranial abnormality. CT CERVICAL SPINE: TECHNIQUE: Transaxial sequence through the cervical spine. Coronal and sagittal reconstructions included. Dose reduction was employed with automated exposure control. COMPARISON: None FINDINGS: Cervical vertebrae and joints: No fracture, subluxation or other malalignment. Moderate generalized facet hypertrophy. Some further minor degenerative change about the uncovertebral joints from C3-C4 through C6-C7. No bone lesion identified. Intervertebral disc spaces and spinal canal: Disc space narrowing and minor spurring particular at C3-C4 and C4-C5 as well as C6-C7. No bony encroachment upon the cervical spinal canal. Soft tissues: Surrounding soft tissues of the neck are unremarkable on this noncontrast study. Other: Lung apices are unremarkable. IMPRESSION: No acute abnormality identified throughout the cervical spine. Cervical spondylosis Report Dictated on Electronically Signed By: Tab Beaulieu MD Electronically Signed Date/Time: 12/20/2023 2:11 AM EDT XR chest 1 view Final Result No traumatic abnormality throughout the chest. Hiatus hernia PELVIS: TECHNIQUE: AP COMPARISON: 06/02/2013 FINDINGS: There is no evidence for fracture or dislocation. Narrowing about the hip joints. Some narrowing about the sacroiliac joints. Degenerative change within the lower lumbar spine. Osteitis pubis. No bone lesion is identified. There is no soft tissue abnormality. IMPRESSION: No traumatic abnormality throughout the pelvis. Degenerative change. CT HEAD: CLINICAL INDICATION: Trauma with head and neck pain TECHNIQUE: Transaxial CT sequence performed through the head with 3 mm reconstruction. Sagittal and Coronal reconstruction images included. Dose reduction employed with automated exposure control. COMPARISON: 02/27/2023 FINDINGS: Ventricles and Extra-axial spaces: Generalized enlargement of the ventricles and sulci. No abnormal extracerebral collection identified. Cerebral and cerebellar parenchyma: Periventricular low attenuation areas bilaterally, corresponding to chronic microvascular ischemic change. No additional focal mass lesion or evidence for acute infarct throughout the cerebrum or cerebellum. 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 Mucosal thickening remains in the left maxillary sinus and left ethmoid air cells. Mastoid air cells: Normal Visualized Orbits: Normal Calvarium and skull base: No CT evidence for skull fracture. Left posterior parietal scalp hematoma IMPRESSION: Diminished cerebral volume and evidence of chronic microvascular ischemic change without acute intracranial abnormality. CT CERVICAL SPINE: TECHNIQUE: Transaxial sequence through the cervical spine. Coronal and sagittal reconstructions included. Dose reduction was employed with automated exposure control. COMPARISON: None FINDINGS: Cervical vertebrae and joints: No fracture, subluxation or other malalignment. Moderate generalized facet hypertrophy. Some further minor degenerative change about the uncovertebral joints from C3-C4 through C6-C7. No bone lesion identified. Intervertebral disc spaces and spinal canal: Disc space narrowing and minor spurring particular at C3-C4 and C4-C5 as well as C6-C7. No bony encroachment upon the cervical spinal canal. Soft tissues: Surrounding soft tissues of the neck are unremarkable on this noncontrast study. Other: Lung apices are unremarkable. IMPRESSION: No acute abnormality identified throughout the cervical spine. Cervical spondylosis Report Dictated on Electronically Signed By: Tab Beaulieu MD Electronically Signed Date/Time: 12/20/2023 2:[address] cervical spine wo IV contrast Final Result No traumatic abnormality throughout the chest. Hiatus hernia PELVIS: TECHNIQUE: AP COMPARISON: 06/02/2013 FINDINGS: There is no evidence for fracture or dislocation. Narrowing about the hip joints. Some narrowing about the sacroiliac joints. Degenerative change within the lower lumbar spine. Osteitis pubis. No bone lesion is identified. There is no soft tissue abnormality. IMPRESSION: No traumatic abnormality throughout the pelvis. Degenerative change. CT HEAD: CLINICAL INDICATION: Trauma with head and neck pain TECHNIQUE: Transaxial CT sequence performed through the head with 3 mm reconstruction. Sagittal and Coronal reconstruction images included. Dose reduction employed with automated exposure control. COMPARISON: 02/27/2023 FINDINGS: Ventricles and Extra-axial spaces: Generalized enlargement of the ventricles and sulci. No abnormal extracerebral collection identified. Cerebral and cerebellar parenchyma: Periventricular low attenuation areas bilaterally, corresponding to chronic microvascular ischemic change. No additional focal mass lesion or evidence for acute infarct throughout the cerebrum or cerebellum. 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 Mucosal thickening remains in the left maxillary sinus and left ethmoid air cells. Mastoid air cells: Normal Visualized Orbits: Normal Calvarium and skull base: No CT evidence for skull fracture. Left posterior parietal scalp hematoma IMPRESSION: Diminished cerebral volume and evidence of chronic microvascular ischemic change without acute intracranial abnormality. CT CERVICAL SPINE: TECHNIQUE: Transaxial sequence through the cervical spine. Coronal and sagittal reconstructions included. Dose reduction was employed with automated exposure control. COMPARISON: None FINDINGS: Cervical vertebrae and joints: No fracture, subluxation or other malalignment. Moderate generalized facet hypertrophy. Some further minor degenerative change about the uncovertebral joints from C3-C4 through C6-C7. No bone lesion identified. Intervertebral disc spaces and spinal canal: Disc space narrowing and minor spurring particular at C3-C4 and C4-C5 as well as C6-C7. No bony encroachment upon the cervical spinal canal. Soft tissues: Surrounding soft tissues of the neck are unremarkable on this noncontrast study. Other: Lung apices are unremarkable. IMPRESSION: No acute abnormality identified throughout the cervical spine. Cervical spondylosis Report Dictated on Electronically Signed By: Tab Beaulieu MD Electronically Signed Date/Time: 12/20/2023 2:[address] head wo IV contrast Final Result No traumatic abnormality throughout the chest. Hiatus hernia PELVIS: TECHNIQUE: AP COMPARISON: 06/02/2013 FINDINGS: There is no evidence for fracture or dislocation. Narrowing about the hip joints. Some narrowing about the sacroiliac joints. Degenerative change within the lower lumbar spine. Osteitis pubis. No bone lesion is identified. There is no soft tissue abnormality. IMPRESSION: No traumatic abnormality throughout the pelvis. Degenerative change. CT HEAD: CLINICAL INDICATION: Trauma with head and neck pain TECHNIQUE: Transaxial CT sequence performed through the head with 3 mm reconstruction. Sagittal and Coronal reconstruction images included. Dose reduction employed with automated exposure control. COMPARISON: 02/27/2023 FINDINGS: Ventricles and Extra-axial spaces: Generalized enlargement of the ventricles and sulci. No abnormal extracerebral collection identified. Cerebral and cerebellar parenchyma: Periventricular low attenuation areas bilaterally, corresponding to chronic microvascular ischemic change. No additional focal mass lesion or evidence for acute infarct throughout the cerebrum or cerebellum. 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 Mucosal thickening remains in the left maxillary sinus and left ethmoid air cells. Mastoid air cells: Normal Visualized Orbits: Normal Calvarium and skull base: No CT evidence for skull fracture. Left posterior parietal scalp hematoma IMPRESSION: Diminished cerebral volume and evidence of chronic microvascular ischemic change without acute intracranial abnormality. CT CERVICAL SPINE: TECHNIQUE: Transaxial sequence through the cervical spine. Coronal and sagittal reconstructions included. Dose reduction was employed with automated exposure control. COMPARISON: None FINDINGS: Cervical vertebrae and joints: No fracture, subluxation or other malalignment. Moderate generalized facet hypertrophy. Some further minor degenerative change about the uncovertebral joints from C3-C4 through C6-C7. No bone lesion identified. Intervertebral disc spaces and spinal canal: Disc space narrowing and minor spurring particular at C3-C4 and C4-C5 as well as C6-C7. No bony encroachment upon the cervical spinal canal. Soft tissues: Surrounding soft tissues of the neck are unremarkable on this noncontrast study. Other: Lung apices are unremarkable. IMPRESSION: No acute abnormality identified throughout the cervical spine. Cervical spondylosis Report Dictated on Electronically Signed By: Tab Beaulieu MD Electronically Signed Date/Time: 12/20/2023 2:11 AM EDT LABS: Labs Reviewed CBC WITH AUTO DIFFERENTIAL - Abnormal Result Value Auto WBC 10.4 RBC 3.90 Hemoglobin 11.3 (*) Hematocrit 34.9 (*) MCV 89.5 MCH 29.0 MCHC 32.4 RDW 13.7 Platelets 259 MPV 9.5 nRBC 0.0 Neutrophils Relative 78.2 Lymphocytes Relative 11.7 (*) Monocytes Relative 6.8 Eosinophils Relative 2.3 Basophils Relative 0.6 Immature Grans % 0.4 Neutrophils Absolute 8.1 (*) Lymphocytes Absolute 1.2 Monocytes Absolute 0.7 Eosinophils Absolute 0.2 Basophils Absolute 0.1 Immature Grans Absolute 0.0 BASIC METABOLIC PANEL - Abnormal SODIUM 139 POTASSIUM 3.8 CHLORIDE 108 (*) CARBON DIOXIDE 26 UREA NITROGEN 22 (*) CREATININE 0.88 GLUCOSE 124 (*) CALCIUM 9.4 ANION GAP 5 eGFR 65.7 PROTIME & APTT - Abnormal PROTHROMBIN TIME 10.3 INR <0.9 (*) APTT 23.3 TROPONIN I - Normal TROPONIN I <0.012 Narrative: Patients with high levels of Biotin oral intake (ie >5 mg/day) may have falsely decreased Troponin levels. All other labs were within normal range or not returned as of this dictation. EMERGENCY DEPARTMENT COURSE and DIFFERENTIAL DIAGNOSIS/MDM: Vitals: Vitals: 12/19/23 2325 BP: 125/67 Pulse: 77 Resp: 18 Temp: 37.5 C (99.5 F) TempSrc: Oral SpO2: 98% Weight: 66.7 kg (147 lb) Height: 1.6 m (5' 3") Medications - No data to display SCREENINGS NIH Stroke Scale 1A. Level of Consciousness: Alert, Keenly Responsive 1B. Ask Month and Age: 1 Question Right 1C. Blink Eyes & Squeeze Hands: Performs Both Tasks 2. Best Gaze: Normal 3. Visual: No Visual Loss 4. Facial Palsy: Normal Symmetrical Movements 5A. Motor - Left Arm: No Drift 5B. Motor - Right Arm: No Drift 6A. Motor - Left Leg: No Drift 6B. Motor - Right Leg: No Drift 7. Limb Ataxia: Absent 8. Sensory Loss: Normal 9. Best Language: No Aphasia 10. Dysarthria: Normal 11. Extinction and Inattention: No Abnormality NIH Stroke Scale: 1 83-year-old female presents for mechanical trip and fall at her longterm Although the fall was not witnessed, the patient immediately called for help and was awake the entire time and nursing staff was at the patient's side and just a few seconds and she was awake and alert the entire time. This argues against a syncopal episode. Patient denies any loss of consciousness. Patient is a somewhat unreliable narrator secondary to dementia, so while this does appear to be a mechanical trip and fall we will simultaneously do a syncope workup with an EKG and a troponin just in case the patient's story is inaccurate, though we do have corroborating information from nursing staff and EMS MDM elements: The patient presented with chief complaint of see above. The differential diagnosis associated with this patient's presentation includes this appears to be a mechanical trip and fall, not a syncopal episode, based on the HPI noted above. Concern for skull fracture brain bleed cervical spine fracture. Patient fails [place] CT C-spine rules and as such requires a CT of her head and her cervical spine. There is no obvious injury to the chest abdomen pelvis or any extremities.. Our workup consisted of ordering/reviewing: CT head CT cervical spine, trauma protocol chest x-ray and pelvis x-ray, standard trauma labs and EKG and troponin. To aid in management, I performed an independent interpretation of Xray(s) see below CT scan(s) see below EKG; see my interpretation elsewhere in the chart Blood work, see below. I also reviewed external records from past medical records in [facility] to obtain collateral history. The patient will be disposition depends on results of workup. Patient is in agreement with this plan. Patient's care was impacted by history of dementia, is supposed to use a cane but admits that she does not use it regularly. As the patient is on aspirin only, and is at her neurological baseline, she does not qualify for level 3 trauma team activation PROCEDURES: Unless otherwise noted below, none Procedures EKG: I read and interpreted this EKG. My interpretation can be found in the [employer] EKG system. EKG shows NSR, borderline LAD, normal OR QRS and QTC, no STEMI, no SVT, no LVH. Previous EKG unchanged. Metabolic panel shows no metabolic acidosis, good kidney function with a creatinine 0.88, glucose minimally elevated at 124 Sodium potassium calcium all normal Troponin negative Normal white blood cell count Mild anemia, which is roughly in line with the patient's hemoglobin values for the last 4 years Normal platelet count INR less than 0.9 0211 Patient's family has arrived. I updated them on the results of workup and plan of care and the situation that led to the patient being brought to the ED. They actually inform me that the patient is supposed to use a walker, not a cane, full-time but she is stubborn and often chooses not to use it, or her dementia makes her forget where she put it in she leaves it in random places in the longterm. This resulted in her trying to walk on her own and she often falls when she does this. When her workup is complete we will do an ambulation test with a walker, not a cane. Imaging: CT head shows diminished cerebral volume and evidence of chronic microvascular ischemic change without acute intracranial abnormality. No additional focal mass lesion or evidence for acute infarction throughout the cerebrum or cerebellum. No hemorrhage. No skull fracture. There is a left posterior parietal scalp hematoma which squares with her physical exam. Interpreted by me. CT cervical spine shows no acute abnormality identified throughout the cervical spine. Cervical spondylosis present. No fracture or subluxation or other malalignment. Interpreted by me. Chest x-ray shows no traumatic abnormality throughout the chest. Heart is upper limit of normal in size. There is a hiatal hernia measuring up to 12.5 cm in size. The lungs are clear there is no pneumothorax. Costophrenic angles are sharp. Degenerative changes thoracic spine. Interpreted by me. X-ray pelvis shows no evidence for fracture or dislocation. Narrowing about the hip joints, some narrowing about the sacroiliac joints. Degenerative change within the lower lumbar spine. No bone lesion identified. No traumatic abnormality throughout the pelvis. Interpreted by me. As a safety check, we gave the patient her walker and tested her ability to ambulate. She ambulates slowly, but with a steady gait. Her transfers from the bed to the walker are slow but stable. It is clear why she needs the walker for support. Family members are at bedside and they say that this is the patient's baseline in terms of neurological status and mobility capability. They are comfortable taking her home. I recommended that she continue to take her aspirin and all other medications as prescribed until her PCP Dr. Collnis tells her to do otherwise. She should take Tylenol for pain. There is no indication for an orthopedic surgery consult at this time as there is no fracture and there is no indication for trauma surgery consult as there is no sign of brain bleed or multisystem traumatic injury. If the patient develops worsening headaches or confusion, falls again, fevers or chills, chest pain palpitations shortness of breath or abdominal pain, feels weak feels faint or passes out, numbness or weakness in the arms or legs, or is unable to walk with her walker, she should return to the ED immediately. Otherwise she should be stable for outpatient follow-up with her PCP. She should use her walker at all times for safety. Results of workup and plan of care discussed with patient and her family. They indicated understanding. Strict return precautions and anticipatory guidance given. All questions answered to their satisfaction. Patient discharged home in stable condition. Disposition: Discharged CRITICAL CARE TIME FINAL IMPRESSION 1. Head injury, initial encounter 2. Fall, initial encounter 3. Uses walker 4. Moderate dementia without behavioral disturbance, psychotic disturbance, mood disturbance, or anxiety, unspecified dementia type (HCC) 5. 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 If there are any questions or concerns please feel free to contact the dictating provider for clarification.) Yen Tidwell MD (electronically signed) Emergency Medicine Provider Yen Tidwell MD 12/20/23225 Yen Tidwell MD 12/20/238 documented in this encounter [facility] 12-20-2023 [facility] Discharg e instructions Yen Tidwell MD - 12/20/2023 1:52 AM EDT You have been seen in the Emergency Department for a trip and fall when not using her walker with a head injury while on aspirin. Your imaging of your head and your neck and your chest and your pelvis were all normal. All labs including troponin (looks for heart disease) and EKG were also normal. I recommend you use your walker at all times for safety. Continue taking your aspirin and other medicines as prescribed, we have not made any changes in your medication regimen this evening. After a visit to the Emergency Department, follow-up is important. You should follow-up with Dr. Collins early this coming week to ensure that you are feeling well and recovering from your fall. Return to the ED if you develop worsening confusion or altered mental status, fevers or chills, you feel weak feel faint or pass out, chest pain palpitation shortness of breath abdominal pain, worsening headache or new onset neck pain or back pain, numbness or weakness in the arms or legs, inability to walk with your walker, or if any new signs, symptoms, or concerns arise. The following attachments cannot be sent through Care Everywhere.Preventing Falls in Older Adults (Jamaican)Closed Head Injury (Jamaican)How to Use a Walker (Jamaican)documented in this encounter [facility] 12-20-[address] Tidwell to bedside. Audrey Arnett RN 12/20/23 0023 [facility] 12-19-2023 Physician Emergency department Note EMERGENCY DEPARTMENT ENCOUNTER Pt Name: Albina Brown Birthdate 1940 Date of evaluation: 12/19/2023 ED Provider: Yen Tidwell MD CHIEF COMPLAINT Chief Complaint Patient presents with Fall Head Injury Hematoma s/p fall today HISTORY OF PRESENT ILLNESS (Location/Symptom, Timing/Onset, Context/Setting, Quality, Duration, Modifying Factors, Severity) Note limiting factors. I wore appropriate PPE for the entirety of this encounter. HPI Albnia Brown is a 83 y.o. who presents to the emergency department with a trip and fall at her longterm Patient has a history of dementia, failure to thrive in adult, debility. She has a cane at home but she often does not use it. She says her doctor told her that she should use it but she says the most the time she feels pretty stable without the cane. She does not walk with a walker. She takes aspirin ONLY. Past medical history of anxiety depression past surgical history of wisdom tooth extraction bilateral tubal ligation and cataract extraction. Does not smoke does not drink. Family history is unknown. According to EMS, today she had a trip and fall at [facility] while not using her cane. The patient was awake the entire time and immediately called for help. Nursing staff was at the patient's side momentarily and she was awake and alert the entire time. She is at her neurological baseline of being pleasantly demented, she is oriented to person and place but not time. She has an occipital hematoma on the left side of her posterior scalp. She has poor short-term memory. EMS reports that this is her neurological baseline. She has no neck pain no back pain. She denies any chest pain or palpitations prior to the fall. She denies any chest pain or rib cage pain now. She denies any shortness of breath before or after the fall. Denies any abdominal pain before or after the fall. No nausea vomiting or diarrhea. Denies any dysuria, is wearing a diaper. Afebrile, normotensive, normal heart rate. Denies any injury to the extremities and is able to move all 4 extremities without pain. Smiling laughing joking, in good spirits despite circumstances. Review of systems limited by dementia, history obtained through combination of chart review, interview with patient, and EMS report. Nursing Notes were reviewed. Limitations to history: Dementia Outside historians: Chart review and EMS report REVIEW OF SYSTEMS Review of Systems Review of systems limited by dementia, history obtained through combination of chart review, interview with patient, and EMS report. PAST MEDICAL HISTORY Past Medical History: Diagnosis Date Acid reflux Anxiety Breast cancer (HCC) Hyperlipidemia SURGICAL HISTORY Past Surgical History: Procedure Laterality Date BREAST BIOPSY BREAST LUMPECTOMY 11/21/2019 CATARACT EXTRACTION COLONOSCOPY TUBAL LIGATION WISDOM TOOTH EXTRACTION CURRENT MEDICATIONS Previous Medications ASPIRIN 81 MG CHEWABLE TABLET Chew 81 mg in the morning. CITALOPRAM (CELEXA) 20 MG TABLET Take 40 mg by mouth daily. MEMANTINE (NAMENDA) 5 MG TABLET Take 1 tablet (5 mg) by mouth 2 times daily for 7 doses. MEMANTINE (NAMENDA) 5 MG TABLET Take 1 tablet (5 mg) by mouth daily for 7 doses. Do not start before March 10, 2023. TAMOXIFEN (NOLVADEX) 20 MG TABLET Take 1 tablet (20 mg total) by mouth daily. ALLERGIES Patient has no known allergies. FAMILY HISTORY No family history on file. SOCIAL HISTORY Social History Socioeconomic History Marital status: Tobacco Use Smoking status: Never Smokeless tobacco: Never Vaping Use Vaping status: Never Used Substance and Sexual Activity Alcohol use: Never Drug use: Never Social Determinants of Health Transportation Needs: No Transportation Needs (02/27/2023) PRAPARE - Transportation Lack of Transportation (Medical): No Lack of Transportation (Non-Medical): No Intimate Partner Violence: Not At Risk (02/27/2023) Humiliation, Afraid, Rape, and Kick questionnaire Fear of Current or Ex-Partner: No Emotionally Abused: No Physically Abused: No Sexually Abused: No Housing Stability: Low Risk (02/27/2023) Housing Stability Vital Sign Unable to Pay for Housing in the Last Year: No Number of Places Lived in the Last Year: 1 Unstable Housing in the Last Year: No PHYSICAL EXAM ED Triage Vitals [12/19/23 2325] Temp Heart Rate Resp BP 37.5 C (99.5 F) 77 18 125/67 SpO2 Temp Source Heart Rate Source Patient Position 98 % Oral -- -- BP Location FiO2 (%) -- -- Physical Exam General: WDWN elderly adult in NAD. Non-toxic appearing HENT: Occipital hematoma present on the left side of the patient's scalp, no laceration to suture. No active expansion. EOMI with no erythema, swelling or discharge. TMs normal bilaterally with no hemotympanum Nares normal bilaterally with no epistaxis No CSF rhinorrhea or otorrhea No raccoon's eyes No Lockhart sign Face is stable Normal bite alignment Oropharyngeal mucus membranes moist, pink, no exudate. No dental trauma. Neck: Full ROM, supple, no rigidity Cardio: RRR, nl s1 s2 no m/r/g, extremities warm, dry, well perfused, non-edematous, 2+ bilateral radial pulses, 2+ bilateral DP pulses Lungs: CTAB, no wheezes, rales, rhonchi, normal work of breathing, no cough no cyanosis no retractions, SaO2 98% on room air Abdomen: Soft, NT, ND, non-rigid, BS x 4 normal, no flank pain to palpation bilaterally, no CVA tenderness to palpation bilaterally MSK: No midline cervical thoracic or lumbar spine pain to palpation Chest wall stable and nontender. No subcutaneous emphysema or crepitus on the rib cage bilaterally. Pelvis stable and nontender No pain to palpation of any extremity, full range of flexion and extension of all 4 extremities with no pain and no limitation of range of motion whatsoever. No bony deformity noted anywhere. Skin: Warm, dry, pink, no rashes, bruising, or lacerations, no petechiae, no purpura Neuro: Alert, oriented to person and place but not time. Pleasantly demented. Able to answer simple questions and follow simple commands but exhibits subtle deficits when it comes to abstract thinking and executive function. EMS reports that this is the patient's neurological baseline. 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 No dysarthria. No aphasia. No facial droop No pronator drift Negative test of skew bilaterally See full NIHSS below. NIHSS = 1 (loses 1 point for not knowing the month, patient is disoriented to time at baseline, this is her neurological baseline secondary to dementia). DIAGNOSTIC RESULTS RADIOLOGY (Per Emergency Physician): Interpretation per the Radiologist below, if available at the time of this note: XR pelvis 1 or 2 views Final Result No traumatic abnormality throughout the chest. Hiatus hernia PELVIS: TECHNIQUE: AP COMPARISON: 06/02/2013 FINDINGS: There is no evidence for fracture or dislocation. Narrowing about the hip joints. Some narrowing about the sacroiliac joints. Degenerative change within the lower lumbar spine. Osteitis pubis. No bone lesion is identified. There is no soft tissue abnormality. IMPRESSION: No traumatic abnormality throughout the pelvis. Degenerative change. CT HEAD: CLINICAL INDICATION: Trauma with head and neck pain TECHNIQUE: Transaxial CT sequence performed through the head with 3 mm reconstruction. Sagittal and Coronal reconstruction images included. Dose reduction employed with automated exposure control. COMPARISON: 02/27/2023 FINDINGS: Ventricles and Extra-axial spaces: Generalized enlargement of the ventricles and sulci. No abnormal extracerebral collection identified. Cerebral and cerebellar parenchyma: Periventricular low attenuation areas bilaterally, corresponding to chronic microvascular ischemic change. No additional focal mass lesion or evidence for acute infarct throughout the cerebrum or cerebellum. 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 Mucosal thickening remains in the left maxillary sinus and left ethmoid air cells. Mastoid air cells: Normal Visualized Orbits: Normal Calvarium and skull base: No CT evidence for skull fracture. Left posterior parietal scalp hematoma IMPRESSION: Diminished cerebral volume and evidence of chronic microvascular ischemic change without acute intracranial abnormality. CT CERVICAL SPINE: TECHNIQUE: Transaxial sequence through the cervical spine. Coronal and sagittal reconstructions included. Dose reduction was employed with automated exposure control. COMPARISON: None FINDINGS: Cervical vertebrae and joints: No fracture, subluxation or other malalignment. Moderate generalized facet hypertrophy. Some further minor degenerative change about the uncovertebral joints from C3-C4 through C6-C7. No bone lesion identified. Intervertebral disc spaces and spinal canal: Disc space narrowing and minor spurring particular at C3-C4 and C4-C5 as well as C6-C7. No bony encroachment upon the cervical spinal canal. Soft tissues: Surrounding soft tissues of the neck are unremarkable on this noncontrast study. Other: Lung apices are unremarkable. IMPRESSION: No acute abnormality identified throughout the cervical spine. Cervical spondylosis Report Dictated on Electronically Signed By: Tab Bealuieu MD Electronically Signed Date/Time: 12/20/2023 2:11 AM EDT XR chest 1 view Final Result No traumatic abnormality throughout the chest. Hiatus hernia PELVIS: TECHNIQUE: AP COMPARISON: 06/02/2013 FINDINGS: There is no evidence for fracture or dislocation. Narrowing about the hip joints. Some narrowing about the sacroiliac joints. Degenerative change within the lower lumbar spine. Osteitis pubis. No bone lesion is identified. There is no soft tissue abnormality. IMPRESSION: No traumatic abnormality throughout the pelvis. Degenerative change. CT HEAD: CLINICAL INDICATION: Trauma with head and neck pain TECHNIQUE: Transaxial CT sequence performed through the head with 3 mm reconstruction. Sagittal and Coronal reconstruction images included. Dose reduction employed with automated exposure control. COMPARISON: 02/27/2023 FINDINGS: Ventricles and Extra-axial spaces: Generalized enlargement of the ventricles and sulci. No abnormal extracerebral collection identified. Cerebral and cerebellar parenchyma: Periventricular low attenuation areas bilaterally, corresponding to chronic microvascular ischemic change. No additional focal mass lesion or evidence for acute infarct throughout the cerebrum or cerebellum. 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 Mucosal thickening remains in the left maxillary sinus and left ethmoid air cells. Mastoid air cells: Normal Visualized Orbits: Normal Calvarium and skull base: No CT evidence for skull fracture. Left posterior parietal scalp hematoma IMPRESSION: Diminished cerebral volume and evidence of chronic microvascular ischemic change without acute intracranial abnormality. CT CERVICAL SPINE: TECHNIQUE: Transaxial sequence through the cervical spine. Coronal and sagittal reconstructions included. Dose reduction was employed with automated exposure control. COMPARISON: None FINDINGS: Cervical vertebrae and joints: No fracture, subluxation or other malalignment. Moderate generalized facet hypertrophy. Some further minor degenerative change about the uncovertebral joints from C3-C4 through C6-C7. No bone lesion identified. Intervertebral disc spaces and spinal canal: Disc space narrowing and minor spurring particular at C3-C4 and C4-C5 as well as C6-C7. No bony encroachment upon the cervical spinal canal. Soft tissues: Surrounding soft tissues of the neck are unremarkable on this noncontrast study. Other: Lung apices are unremarkable. IMPRESSION: No acute abnormality identified throughout the cervical spine. Cervical spondylosis Report Dictated on Electronically Signed By: Tab Beaulieu MD Electronically Signed Date/Time: 12/20/2023 2:[address] cervical spine wo IV contrast Final Result No traumatic abnormality throughout the chest. Hiatus hernia PELVIS: TECHNIQUE: AP COMPARISON: 06/02/2013 FINDINGS: There is no evidence for fracture or dislocation. Narrowing about the hip joints. Some narrowing about the sacroiliac joints. Degenerative change within the lower lumbar spine. Osteitis pubis. No bone lesion is identified. There is no soft tissue abnormality. IMPRESSION: No traumatic abnormality throughout the pelvis. Degenerative change. CT HEAD: CLINICAL INDICATION: Trauma with head and neck pain TECHNIQUE: Transaxial CT sequence performed through the head with 3 mm reconstruction. Sagittal and Coronal reconstruction images included. Dose reduction employed with automated exposure control. COMPARISON: 02/27/2023 FINDINGS: Ventricles and Extra-axial spaces: Generalized enlargement of the ventricles and sulci. No abnormal extracerebral collection identified. Cerebral and cerebellar parenchyma: Periventricular low attenuation areas bilaterally, corresponding to chronic microvascular ischemic change. No additional focal mass lesion or evidence for acute infarct throughout the cerebrum or cerebellum. 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 Mucosal thickening remains in the left maxillary sinus and left ethmoid air cells. Mastoid air cells: Normal Visualized Orbits: Normal Calvarium and skull base: No CT evidence for skull fracture. Left posterior parietal scalp hematoma IMPRESSION: Diminished cerebral volume and evidence of chronic microvascular ischemic change without acute intracranial abnormality. CT CERVICAL SPINE: TECHNIQUE: Transaxial sequence through the cervical spine. Coronal and sagittal reconstructions included. Dose reduction was employed with automated exposure control. COMPARISON: None FINDINGS: Cervical vertebrae and joints: No fracture, subluxation or other malalignment. Moderate generalized facet hypertrophy. Some further minor degenerative change about the uncovertebral joints from C3-C4 through C6-C7. No bone lesion identified. Intervertebral disc spaces and spinal canal: Disc space narrowing and minor spurring particular at C3-C4 and C4-C5 as well as C6-C7. No bony encroachment upon the cervical spinal canal. Soft tissues: Surrounding soft tissues of the neck are unremarkable on this noncontrast study. Other: Lung apices are unremarkable. IMPRESSION: No acute abnormality identified throughout the cervical spine. Cervical spondylosis Report Dictated on Electronically Signed By: Tab Beaulieu MD Electronically Signed Date/Time: 12/20/2023 2:[address] head wo IV contrast Final Result No traumatic abnormality throughout the chest. Hiatus hernia PELVIS: TECHNIQUE: AP COMPARISON: 06/02/2013 FINDINGS: There is no evidence for fracture or dislocation. Narrowing about the hip joints. Some narrowing about the sacroiliac joints. Degenerative change within the lower lumbar spine. Osteitis pubis. No bone lesion is identified. There is no soft tissue abnormality. IMPRESSION: No traumatic abnormality throughout the pelvis. Degenerative change. CT HEAD: CLINICAL INDICATION: Trauma with head and neck pain TECHNIQUE: Transaxial CT sequence performed through the head with 3 mm reconstruction. Sagittal and Coronal reconstruction images included. Dose reduction employed with automated exposure control. COMPARISON: 02/27/2023 FINDINGS: Ventricles and Extra-axial spaces: Generalized enlargement of the ventricles and sulci. No abnormal extracerebral collection identified. Cerebral and cerebellar parenchyma: Periventricular low attenuation areas bilaterally, corresponding to chronic microvascular ischemic change. No additional focal mass lesion or evidence for acute infarct throughout the cerebrum or cerebellum. 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 Mucosal thickening remains in the left maxillary sinus and left ethmoid air cells. Mastoid air cells: Normal Visualized Orbits: Normal Calvarium and skull base: No CT evidence for skull fracture. Left posterior parietal scalp hematoma IMPRESSION: Diminished cerebral volume and evidence of chronic microvascular ischemic change without acute intracranial abnormality. CT CERVICAL SPINE: TECHNIQUE: Transaxial sequence through the cervical spine. Coronal and sagittal reconstructions included. Dose reduction was employed with automated exposure control. COMPARISON: None FINDINGS: Cervical vertebrae and joints: No fracture, subluxation or other malalignment. Moderate generalized facet hypertrophy. Some further minor degenerative change about the uncovertebral joints from C3-C4 through C6-C7. No bone lesion identified. Intervertebral disc spaces and spinal canal: Disc space narrowing and minor spurring particular at C3-C4 and C4-C5 as well as C6-C7. No bony encroachment upon the cervical spinal canal. Soft tissues: Surrounding soft tissues of the neck are unremarkable on this noncontrast study. Other: Lung apices are unremarkable. IMPRESSION: No acute abnormality identified throughout the cervical spine. Cervical spondylosis Report Dictated on Electronically Signed By: Tab Beaulieu MD Electronically Signed Date/Time: 12/20/2023 2:11 AM EDT LABS: Labs Reviewed CBC WITH AUTO DIFFERENTIAL - Abnormal Result Value Auto WBC 10.4 RBC 3.90 Hemoglobin 11.3 (*) Hematocrit 34.9 (*) MCV 89.5 MCH 29.0 MCHC 32.4 RDW 13.7 Platelets 259 MPV 9.5 nRBC 0.0 Neutrophils Relative 78.2 Lymphocytes Relative 11.7 (*) Monocytes Relative 6.8 Eosinophils Relative 2.3 Basophils Relative 0.6 Immature Grans % 0.4 Neutrophils Absolute 8.1 (*) Lymphocytes Absolute 1.2 Monocytes Absolute 0.7 Eosinophils Absolute 0.2 Basophils Absolute 0.1 Immature Grans Absolute 0.0 BASIC METABOLIC PANEL - Abnormal SODIUM 139 POTASSIUM 3.8 CHLORIDE 108 (*) CARBON DIOXIDE 26 UREA NITROGEN 22 (*) CREATININE 0.88 GLUCOSE 124 (*) CALCIUM 9.4 ANION GAP 5 eGFR 65.7 PROTIME & APTT - Abnormal PROTHROMBIN TIME 10.3 INR <0.9 (*) APTT 23.3 TROPONIN I - Normal TROPONIN I <0.012 Narrative: Patients with high levels of Biotin oral intake (ie >5 mg/day) may have falsely decreased Troponin levels. All other labs were within normal range or not returned as of this dictation. EMERGENCY DEPARTMENT COURSE and DIFFERENTIAL DIAGNOSIS/MDM: Vitals: Vitals: 12/19/23 2325 BP: 125/67 Pulse: 77 Resp: 18 Temp: 37.5 C (99.5 F) TempSrc: Oral SpO2: 98% Weight: 66.7 kg (147 lb) Height: 1.6 m (5' 3") Medications - No data to display SCREENINGS NIH Stroke Scale 1A. Level of Consciousness: Alert, Keenly Responsive 1B. Ask Month and Age: 1 Question Right 1C. Blink Eyes & Squeeze Hands: Performs Both Tasks 2. Best Gaze: Normal 3. Visual: No Visual Loss 4. Facial Palsy: Normal Symmetrical Movements 5A. Motor - Left Arm: No Drift 5B. Motor - Right Arm: No Drift 6A. Motor - Left Leg: No Drift 6B. Motor - Right Leg: No Drift 7. Limb Ataxia: Absent 8. Sensory Loss: Normal 9. Best Language: No Aphasia 10. Dysarthria: Normal 11. Extinction and Inattention: No Abnormality NIH Stroke Scale: 1 83-year-old female presents for mechanical trip and fall at her longterm Although the fall was not witnessed, the patient immediately called for help and was awake the entire time and nursing staff was at the patient's side and just a few seconds and she was awake and alert the entire time. This argues against a syncopal episode. Patient denies any loss of consciousness. Patient is a somewhat unreliable narrator secondary to dementia, so while this does appear to be a mechanical trip and fall we will simultaneously do a syncope workup with an EKG and a troponin just in case the patient's story is inaccurate, though we do have corroborating information from nursing staff and EMS MDM elements: The patient presented with chief complaint of see above. The differential diagnosis associated with this patient's presentation includes this appears to be a mechanical trip and fall, not a syncopal episode, based on the HPI noted above. Concern for skull fracture brain bleed cervical spine fracture. Patient fails [place] CT C-spine rules and as such requires a CT of her head and her cervical spine. There is no obvious injury to the chest abdomen pelvis or any extremities.. Our workup consisted of ordering/reviewing: CT head CT cervical spine, trauma protocol chest x-ray and pelvis x-ray, standard trauma labs and EKG and troponin. To aid in management, I performed an independent interpretation of Xray(s) see below CT scan(s) see below EKG; see my interpretation elsewhere in the chart Blood work, see below. I also reviewed external records from past medical records in [facility] to obtain collateral history. The patient will be disposition depends on results of workup. Patient is in agreement with this plan. Patient's care was impacted by history of dementia, is supposed to use a cane but admits that she does not use it regularly. As the patient is on aspirin only, and is at her neurological baseline, she does not qualify for level 3 trauma team activation PROCEDURES: Unless otherwise noted below, none Procedures EKG: I read and interpreted this EKG. My interpretation can be found in the [employer] EKG system. EKG shows NSR, borderline LAD, normal OR QRS and QTC, no STEMI, no SVT, no LVH. Previous EKG unchanged. Metabolic panel shows no metabolic acidosis, good kidney function with a creatinine 0.88, glucose minimally elevated at 124 Sodium potassium calcium all normal Troponin negative Normal white blood cell count Mild anemia, which is roughly in line with the patient's hemoglobin values for the last 4 years Normal platelet count INR less than 0.9 0211 Patient's family has arrived. I updated them on the results of workup and plan of care and the situation that led to the patient being brought to the ED. They actually inform me that the patient is supposed to use a walker, not a cane, full-time but she is stubborn and often chooses not to use it, or her dementia makes her forget where she put it in she leaves it in random places in the longterm. This resulted in her trying to walk on her own and she often falls when she does this. When her workup is complete we will do an ambulation test with a walker, not a cane. Imaging: CT head shows diminished cerebral volume and evidence of chronic microvascular ischemic change without acute intracranial abnormality. No additional focal mass lesion or evidence for acute infarction throughout the cerebrum or cerebellum. No hemorrhage. No skull fracture. There is a left posterior parietal scalp hematoma which squares with her physical exam. Interpreted by me. CT cervical spine shows no acute abnormality identified throughout the cervical spine. Cervical spondylosis present. No fracture or subluxation or other malalignment. Interpreted by me. Chest x-ray shows no traumatic abnormality throughout the chest. Heart is upper limit of normal in size. There is a hiatal hernia measuring up to 12.5 cm in size. The lungs are clear there is no pneumothorax. Costophrenic angles are sharp. Degenerative changes thoracic spine. Interpreted by me. X-ray pelvis shows no evidence for fracture or dislocation. Narrowing about the hip joints, some narrowing about the sacroiliac joints. Degenerative change within the lower lumbar spine. No bone lesion identified. No traumatic abnormality throughout the pelvis. Interpreted by me. As a safety check, we gave the patient her walker and tested her ability to ambulate. She ambulates slowly, but with a steady gait. Her transfers from the bed to the walker are slow but stable. It is clear why she needs the walker for support. Family members are at bedside and they say that this is the patient's baseline in terms of neurological status and mobility capability. They are comfortable taking her home. I recommended that she continue to take her aspirin and all other medications as prescribed until her PCP Dr. Collins tells her to do otherwise. She should take Tylenol for pain. There is no indication for an orthopedic surgery consult at this time as there is no fracture and there is no indication for trauma surgery consult as there is no sign of brain bleed or multisystem traumatic injury. If the patient develops worsening headaches or confusion, falls again, fevers or chills, chest pain palpitations shortness of breath or abdominal pain, feels weak feels faint or passes out, numbness or weakness in the arms or legs, or is unable to walk with her walker, she should return to the ED immediately. Otherwise she should be stable for outpatient follow-up with her PCP. She should use her walker at all times for safety. Results of workup and plan of care discussed with patient and her family. They indicated understanding. Strict return precautions and anticipatory guidance given. All questions answered to their satisfaction. Patient discharged home in stable condition. Disposition: Discharged CRITICAL CARE TIME FINAL IMPRESSION 1. Head injury, initial encounter 2. Fall, initial encounter 3. Uses walker 4. Moderate dementia without behavioral disturbance, psychotic disturbance, mood disturbance, or anxiety, unspecified dementia type (HCC) 5. 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 If there are any questions or concerns please feel free to contact the dictating provider for clarification.) Yen Tidwell MD (electronically signed) Emergency Medicine Provider Yen Tidwell MD 12/20/23225 Yen Tidwell MD 12/20/23227 [facility] 12-03-2023 Telephone encounter Note Pharmacy faxed requesting the following refill Refill(s) Requested: Requested Prescriptions Pending Prescriptions Disp Refills tolterodine ER (DETROL LA) 2 mg 24 hr capsule [Pharmacy Med Name: TOLTERODINE TART ER 2 MG CAP] 90 capsule 3 Sig: take 1 capsule by mouth every day ALLERGIES No Known Allergies (home) [phone] (cell) Last Office Visit Date: 07/28/2023 Last Distance Health Visit: Visit date not found Future Appointment: Visit date not found The patients preferred pharmacy has been captured for this encounter? yes Request is for script(s) to be escript to pharmacy. Luz Elena Hewitt LPN [facility] 12-03-2023 Miscellaneous Notes Pharmacy faxed requesting the following refill Refill(s) Requested: Requested Prescriptions Pending Prescriptions Disp Refills tolterodine ER (DETROL LA) 2 mg 24 hr capsule [Pharmacy Med Name: TOLTERODINE TART ER 2 MG CAP] 90 capsule 3 Sig: take 1 capsule by mouth every day ALLERGIES No Known Allergies (home) [phone] (cell) Last Office Visit Date: 07/28/2023 Last Distance Health Visit: Visit date not found Future Appointment: Visit date not found The patients preferred pharmacy has been captured for this encounter? yes Request is for script(s) to be escript to pharmacy. Luz Elena Hewitt LPN documented in this encounter [facility] 11-19-2023 Telephone encounter Note Pharmacy faxed requesting the following refill Refill(s) Requested: Requested Prescriptions Pending Prescriptions Disp Refills QUEtiapine (SEROQUEL) 25 mg tablet [Pharmacy Med Name: QUETIAPINE FUMARATE 25 MG TAB] 90 tablet 1 Sig: take 1 tablet by mouth everyday at bedtime ALLERGIES No Known Allergies (home) [phone] (cell) Last Office Visit Date: 07/28/2023 Last Distance Health Visit: Visit date not found Future Appointment: Visit date not found The patients preferred pharmacy has been captured for this encounter? yes Request is for script(s) to be escript to pharmacy. Nicol Ventura LPN [facility] 11-19-2023 Miscellaneous Notes Pharmacy faxed requesting the following refill Refill(s) Requested: Requested Prescriptions Pending Prescriptions Disp Refills QUEtiapine (SEROQUEL) 25 mg tablet [Pharmacy Med Name: QUETIAPINE FUMARATE 25 MG TAB] 90 tablet 1 Sig: take 1 tablet by mouth everyday at bedtime ALLERGIES No Known Allergies (home) [phone] (cell) Last Office Visit Date: 07/28/2023 Last Distance Health Visit: Visit date not found Future Appointment: Visit date not found The patients preferred pharmacy has been captured for this encounter? yes Request is for script(s) to be escript to pharmacy. Nicol Ventura LPN documented in this encounter [facility] 10-09-2023 Telephone encounter Note Pharmacy faxed requesting the following refill Refill(s) Requested: Requested Prescriptions Pending Prescriptions Disp Refills citalopram (CELEXA) 40 mg tablet [Pharmacy Med Name: CITALOPRAM HBR 40 MG TABLET] 90 tablet 3 Sig: take 1 tablet by mouth every day ALLERGIES No Known Allergies (home) [phone] (cell) Last Office Visit Date: 07/28/2023 Last Distance Health Visit: Visit date not found Future Appointment: Visit date not found The patients preferred pharmacy has been captured for this encounter? yes Request is for script(s) to be escript to pharmacy. Nicol Ventura LPN [facility] 10-09-2023 Miscellaneous Notes Pharmacy faxed requesting the following refill Refill(s) Requested: Requested Prescriptions Pending Prescriptions Disp Refills citalopram (CELEXA) 40 mg tablet [Pharmacy Med Name: CITALOPRAM HBR 40 MG TABLET] 90 tablet 3 Sig: take 1 tablet by mouth every day ALLERGIES No Known Allergies (home) [phone] (cell) Last Office Visit Date: 07/28/2023 Last [facility] Visit: Visit date not found Future Appointment: Visit date not found The patients preferred pharmacy has been captured for this encounter? yes Request is for script(s) to be escript to pharmacy. Nicol Ventura LPN documented in this encounter [facility] 10-02-2023 Note HNO ID: [id number] Author: ABI BOWENS, ? Service: ? Author Type: ? Type: Progress Notes Filed: 10/02/2023 16:19 Note Text: [facility] POPULATION HEALTH NAVIGATION OUTREACH Action/FYI [facility] PAIN ASSESS AND MED REVIEW- UPLOAD 07-28-23 PCP NOTE Patient Identified by Name and : Yes, via phone and via HyprKeyhart Reason for Outreach Care Gap or Scheduling Wellness Visits Care Gap Reviewed:: Annual Wellness visit COA Outreach Outcome/Action Unable to reach patient: Left message MyChart message sent Population Health Navigation Workflow Chart Review Cute PDF and Portal Submission Payer: [place] Navigation Signature: Abi Bowens October 02, 2023 4:[address] [facility] 10-02-2023 History of Presen t illness Narrative [facility] POPULATION HEALTH NAVIGATION OUTREACH Action/FYI [facility]A PAIN ASSESS AND MED REVIEW- UPLOAD 07-28-23 PCP NOTE Patient Identified by Name and : Yes, via phone and via HyprKeyhart Reason for Outreach Care Gap or Scheduling Wellness Visits Care Gap Reviewed:: Annual Wellness visit COA Outreach Outcome/Action Unable to reach patient: Left message HyprKeyhart message sent Population Health Navigation Workflow Chart Review Cute PDF and Portal Submission Payer: Telly Rouse Signature: Abi Bowens October 02, 2023 4:17 PM documented in this encounter [facility] 10-02-2023 Note Patient Outreach (FP DOYL) KEVINALBINA Spencer ([id number]) 1940 F Date Time Provider Department 10/02/23 ABI BOWENS During your visit today, we recorded the following information about you: Abi Bowens 10/02/2023 4:19 PM Signed [facility] POPULATION HEALTH NAVIGATION OUTREACH Action/FYI [facility] PAIN ASSESS AND MED REVIEW- UPLOAD 07-28-23 PCP NOTE Patient Identified by Name and : Yes, via phone and via HyprKeyhart Reason for Outreach Care Gap or Scheduling Wellness Visits Care Gap Reviewed:: Annual Wellness visit COA Outreach Outcome/Action Unable to reach patient: Left message [employer] message sent Population Health Navigation Workflow Chart Review Cute PDF and Portal Submission Payer: Telly Rouse Signature: Abi Bowens October 02, 2023 4:17 PM Allergies As of Date: 10/02/2023 (No Known Allergies) Date Reviewed: 07/28/2023 Reviewed by: Kailyn Mead LPN - Fully Assessed Reason for Visit: Population Health Navigation Outreach [[id number]] Cesar: Telly Attributed Member- Needs 2023 Medicare Wellness Appt Scheduled Prescriptions as of 10/02/2023 - QUEtiapine (SEROQUEL) 25 mg tablet Take 1 tablet by mouth daily at bedtime. - donepezil (ARICEPT) 10 mg tablet take 1 tablet by mouth everyday at bedtime - benzonatate (TESSALON PERLES) 100 mg capsule Take 1 capsule by mouth three times a day as needed for cough. - omeprazole (PRILOSEC) 20 mg capsule Take 1 capsule by mouth once daily. - memantine XR (NAMENDA XR) 21 mg CSpX Take 1 capsule by mouth once daily. - tolterodine ER (DETROL LA) 2 mg 24 hr capsule Take 1 capsule by mouth once daily. - citalopram (CELEXA) 40 mg tablet TAKE 1 TABLET BY MOUTH EVERY DAY - omeprazole (PRILOSEC) 20 mg capsule - donepezil (ARICEPT) 23 mg tablet Take 1 tablet by mouth daily at bedtime. - donepezil (ARICEPT) 5 mg tablet Take 1 tablet by mouth daily at bedtime. - meclizine (ANTIVERT) 25 mg tab Take 1 tablet by mouth three times daily as needed. - multivitamin (MULTIPLE VITAMINS ORAL) Take 1 tablet by mouth once daily. (CENTRUM SILVER ADULT 50+ PO) - ascorbic acid, vitamin C, (VITAMIN C) 500 mg tablet Take 500 mg by mouth. - aspirin 81 mg chewable tablet Take 81 mg by mouth once daily. - Cholecalciferol, Vitamin D3, 25 mcg (1,000 unit) cap Take 1 capsule by mouth. - simvastatin (ZOCOR) 20 mg tablet Take 20 mg by mouth daily at bedtime. - tamoxifen (NOLVADEX) 20 mg tablet Take 20 mg by mouth once daily. - ZINC ACETATE ORAL Take 50 mg by mouth once daily. - vitamin B complex (B COMPLEX-VITAMIN B12 ORAL) Take 1,000 mg by mouth once daily. Meds Comments as of 07/05/2021: 07/05/21 Patient did not bring a list, states all medications are the same. 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 Tumor measured 1.5 cm. Lymph nodes not evaluated at the time of surgery (given favorable prognosis, no additional lymph node evaluation planned). 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 Given favorable risk, older age, hormone receptor positive disease; elected against adjuvant radiation. Initiated adjuvant tamoxifen December 2019 (elected against aromatase inhibitor given favorable risk with baseline osteopenia and history of falls). New right-sided breast mass measuring 0.5 cm on mammogram/ultrasound. Status post core needle biopsy December 2021 with atypical papillary lesion. She declined excisional biopsy given increasing dementia. Other PMHx 1. DLD 2. GERD 3. Anxiety 4. Dementia Social History Social History Tobacco Use Smoking status: Never Smokeless tobacco: Never Family History Sister - breast ca at 70 yo Interval History: Compliant with tamoxifen. Memory/dementia gradually progressing over time and she will be moving to a snf facility in the near future. Denies new breast lesions or masses. Physical exam: Vitals reviewed Alert, NAD, ecog 3 In wheelchair at today's visit No neck or axillary lymphadenopathy appreciated bilaterally Bilateral breast without mass or lymphadenopathy appreciated bilaterally Imaging/Labs: Dexa 12/22/19: osteopenia (t score -1.7) Assessment/Plan: 83 y.o. with PMHx as above 1. 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 Tumor measured 1.5 cm. [place] lymph nodes not evaluated at the time of surgery (given favorable prognosis, no additional lymph node evaluation planned). 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 Given favorable risk, older age, hormone receptor positive disease; elected against adjuvant radiation. Initiated adjuvant tamoxifen December 2019 (elected against aromatase inhibitor given favorable risk with baseline osteopenia and history of falls). 2. Have discussed side effects of tamoxifen 20 mg p.o. daily including but not limited to bone/joint pain, hot flashes, slight increased risk of uterine cancer, stroke and thrombosis, vision changes. Expected 5 yr breast cancer specific OS > 95%. Treatment is being given with curative intent and would continue for up to 5-10 years (potentially 5 years based on lower risk disease and depending on tolerance). Given favorable risk, absolute benefit of tamoxifen in decreasing recurrence or developing second breast cancer 3-4%. 3. Utility of annual surveillance mammography limited given older age with dementia and impaired functional status. 4. Have encouraged physical activity (as tolerated), healthy diet, limiting alcohol intake, maintaining healthy body weight. 5. Follow up 1 year There are no other issues with medication compliance, stressors, depression, side effects of therapy other than as noted above. Discussion congruent with NCCN guidelines if applicable. she consents to treatment. Shared decision making was performed. documented in this encounter [facility] 08-04-2023 Miscellaneous Notes Consult to physical therapy Recurrent falls Confirm [id number] Donya Lackey documented in this encounter [facility] 07-28-2023 Note HNO ID: [id number] Author: MADYSON COLLINS DO Service: ? Author Type: Physician Type: Progress Notes Filed: 08/06/2023 23:24 Note Text: [facility] Jaimee Collins DO [address] [place] [address] Date of Evaluation: 07/28/2023 Patient Name: Albina Brown : 1940 Chief Complaint: Patient presents with: Fall: Has had 4 falls in the last 2 1/2 months. Firs Back Pain: Low to middle back pain since first fall. Balance Nursing Intake: There are no exam notes on file for this visit. Subjective Ms. Brown is a 83 year old female who presents with the following complaint(s): The history is provided by the patient and a relative. 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 Fall Incident onset: recurrent falling. The fall occurred while walking and while standing (while in the shower). Pertinent negatives include no numbness, no hematuria and no headaches. Back Pain This is a new problem. Pertinent negatives include no chest pain, no numbness, no headaches and no weakness. Review of Systems Constitutional: Negative for fatigue and unexpected weight change. HENT: Negative for nosebleeds. Eyes: Negative for redness and visual disturbance. Respiratory: Negative for apnea, cough and shortness of breath. Cardiovascular: Negative for chest pain, palpitations and leg swelling. Genitourinary: Negative for hematuria. Musculoskeletal: Positive for back pain. Neurological: Negative for dizziness, weakness, light-headedness, numbness and headaches. Hematological: Does not bruise/bleed easily. Psychiatric/Behavioral: The patient is not nervous/anxious. History reviewed. No pertinent past medical history. PAST SURGICAL HISTORY Procedure Laterality Date BREAST SURGERY HX 2019 Breast cancer- left FAMILY HISTORY Problem Relation Age of Onset Hypertension Mother Cancer Father Cancer Brother Social History Tobacco Use Smoking status: Former Types: Cigarettes Smokeless tobacco: Never Vaping Use Vaping Use: Never used Substance Use Topics Alcohol use: Not Currently Drug use: Never Current Outpatient Medications Medication Sig QUEtiapine (SEROQUEL) 25 mg tablet Take 1 tablet by mouth daily at bedtime. omeprazole (PRILOSEC) 20 mg capsule Take 1 capsule by mouth once daily. tolterodine ER (DETROL LA) 2 mg 24 hr capsule Take 1 capsule by mouth once daily. citalopram (CELEXA) 40 mg tablet TAKE 1 TABLET BY MOUTH EVERY DAY meclizine (ANTIVERT) 25 mg tab Take 1 tablet by mouth three times daily as needed. multivitamin (MULTIPLE VITAMINS ORAL) Take 1 tablet by mouth once daily. (CENTRUM SILVER ADULT 50+ PO) ascorbic acid, vitamin C, (VITAMIN C) 500 mg tablet Take 500 mg by mouth. aspirin 81 mg chewable tablet Take 81 mg by mouth once daily. tamoxifen (NOLVADEX) 20 mg tablet Take 20 mg by mouth once daily. ZINC ACETATE ORAL Take 50 mg by mouth once daily. donepezil (ARICEPT) 10 mg tablet take 1 tablet by mouth everyday at bedtime (Patient not taking: Reported on 06/16/2023) benzonatate (TESSALON PERLES) 100 mg capsule Take 1 capsule by mouth three times a day as needed for cough. (Patient not taking: Reported on 06/16/2023) memantine XR (NAMENDA XR) 21 mg CSpX Take 1 capsule by mouth once daily. (Patient not taking: Reported on 03/24/2023) omeprazole (PRILOSEC) 20 mg capsule (Patient not taking: Reported on 12/12/2022) donepezil (ARICEPT) 23 mg tablet Take 1 tablet by mouth daily at bedtime. (Patient not taking: Reported on 12/12/2022) donepezil (ARICEPT) 5 mg tablet Take 1 tablet by mouth daily at bedtime. (Patient not taking: Reported on 12/12/2022) Cholecalciferol, Vitamin D3, 25 mcg (1,000 unit) cap Take 1 capsule by mouth. (Patient not taking: Reported on 03/24/2023) simvastatin (ZOCOR) 20 mg tablet Take 20 mg by mouth daily at bedtime. (Patient not taking: Reported on 07/04/2022) vitamin B complex (B COMPLEX-VITAMIN B12 ORAL) Take 1,000 mg by mouth once daily. (Patient not taking: Reported on 07/28/2023) No current facility-administered medications for this visit. I have confirmed and edited as necessary the past medical, family and social histories, HPI, and ROS obtained by others. Objective BP 148/80 Pulse 74 Temp 99.3 Ht 5' 3" (1.60m) Wt 178 lb (80.7kg) SpO2 98% BMI 31.54 kg/(m2). Physical Exam Vitals and nursing note reviewed. Constitutional: General: She is not in acute distress. Appearance: Normal appearance. She is well-developed. She is not ill-appearing. HENT: Head: Normocephalic. Right Ear: Tympanic membrane, ear canal and external ear normal. There is no impacted cerumen. Left Ear: Tympanic membrane, ear canal and external ear normal. There is no impacted cerumen. Nose: Nose normal. Mouth/Throat: Mouth: Mucous membranes are moist. Pharynx: Oropharynx is clear. Uvula midline. No oropharyngea (more content not included)... [facility] 07-28-2023 History of Presen t illness Narrative Images from the original note were not included. [facility] [place] [facility], [address] [place] [address] Date of Evaluation: 07/28/2023 Patient Name: Albina Brown : 1940 Chief Complaint: Patient presents with: Fall: Has had 4 falls in the last 2 1/2 months. Firs Back Pain: Low to middle back pain since first fall. Balance Nursing Intake: There are no exam notes on file for this visit. Subjective Ms. Brown is a 83 year old female who presents with the following complaint(s): The history is provided by the patient and a relative. 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 Fall Incident onset: recurrent falling. The fall occurred while walking and while standing (while in the shower). Pertinent negatives include no numbness, no hematuria and no headaches. Back Pain This is a new problem. Pertinent negatives include no chest pain, no numbness, no headaches and no weakness. Review of Systems Constitutional: Negative for fatigue and unexpected weight change. HENT: Negative for nosebleeds. Eyes: Negative for redness and visual disturbance. Respiratory: Negative for apnea, cough and shortness of breath. Cardiovascular: Negative for chest pain, palpitations and leg swelling. Genitourinary: Negative for hematuria. Musculoskeletal: Positive for back pain. Neurological: Negative for dizziness, weakness, light-headedness, numbness and headaches. Hematological: Does not bruise/bleed easily. Psychiatric/Behavioral: The patient is not nervous/anxious. History reviewed. No pertinent past medical history. PAST SURGICAL HISTORY Procedure Laterality Date BREAST SURGERY HX 2019 Breast cancer- left FAMILY HISTORY Problem Relation Age of Onset Hypertension Mother Cancer Father Cancer Brother Social History Tobacco Use Smoking status: Former Types: Cigarettes Smokeless tobacco: Never Vaping Use Vaping Use: Never used Substance Use Topics Alcohol use: Not Currently Drug use: Never Current Outpatient Medications Medication Sig QUEtiapine (SEROQUEL) 25 mg tablet Take 1 tablet by mouth daily at bedtime. omeprazole (PRILOSEC) 20 mg capsule Take 1 capsule by mouth once daily. tolterodine ER (DETROL LA) 2 mg 24 hr capsule Take 1 capsule by mouth once daily. citalopram (CELEXA) 40 mg tablet TAKE 1 TABLET BY MOUTH EVERY DAY meclizine (ANTIVERT) 25 mg tab Take 1 tablet by mouth three times daily as needed. multivitamin (MULTIPLE VITAMINS ORAL) Take 1 tablet by mouth once daily. (CENTRUM SILVER ADULT 50+ PO) ascorbic acid, vitamin C, (VITAMIN C) 500 mg tablet Take 500 mg by mouth. aspirin 81 mg chewable tablet Take 81 mg by mouth once daily. tamoxifen (NOLVADEX) 20 mg tablet Take 20 mg by mouth once daily. ZINC ACETATE ORAL Take 50 mg by mouth once daily. donepezil (ARICEPT) 10 mg tablet take 1 tablet by mouth everyday at bedtime (Patient not taking: Reported on 06/16/2023) benzonatate (TESSALON PERLES) 100 mg capsule Take 1 capsule by mouth three times a day as needed for cough. (Patient not taking: Reported on 06/16/2023) memantine XR (NAMENDA XR) 21 mg CSpX Take 1 capsule by mouth once daily. (Patient not taking: Reported on 03/24/2023) omeprazole (PRILOSEC) 20 mg capsule (Patient not taking: Reported on 12/12/2022) donepezil (ARICEPT) 23 mg tablet Take 1 tablet by mouth daily at bedtime. (Patient not taking: Reported on 12/12/2022) donepezil (ARICEPT) 5 mg tablet Take 1 tablet by mouth daily at bedtime. (Patient not taking: Reported on 12/12/2022) Cholecalciferol, Vitamin D3, 25 mcg (1,000 unit) cap Take 1 capsule by mouth. (Patient not taking: Reported on 03/24/2023) simvastatin (ZOCOR) 20 mg tablet Take 20 mg by mouth daily at bedtime. (Patient not taking: Reported on 07/04/2022) vitamin B complex (B COMPLEX-VITAMIN B12 ORAL) Take 1,000 mg by mouth once daily. (Patient not taking: Reported on 07/28/2023) No current facility-administered medications for this visit. I have confirmed and edited as necessary the past medical, family and social histories, HPI, and ROS obtained by others. Objective BP 148/80 Pulse 74 Temp 99.3 Ht 5' 3" (1.60m) Wt 178 lb (80.7kg) SpO2 98% BMI 31.54 kg/(m^2). Physical Exam Vitals and nursing note reviewed. Constitutional: General: She is not in acute distress. Appearance: Normal appearance. She is well-developed. She is not ill-appearing. HENT: Head: Normocephalic. Right Ear: Tympanic membrane, ear canal and external ear normal. There is no impacted cerumen. Left Ear: Tympanic membrane, ear canal and external ear normal. There is no impacted cerumen. Nose: Nose normal. Mouth/Throat: Mouth: Mucous membranes are moist. Pharynx: Oropharynx is clear. Uvula midline. No oropharyngeal exudate or posterior oropharyngeal erythema. Eyes: General: Lids are normal. Vision grossly intact. Gaze aligned appropriately. No scleral icterus. Right eye: No discharge. Left eye: No discharge. Extraocular Movements: Extraocular movements intact. Conjunctiva/sclera: Conjunctivae normal. Pupils: Pupils are equal, round, and reactive to light. Neck: Thyroid: No thyroid mass, thyromegaly or thyroid tenderness. Vascular: No carotid bruit. Trachea: Trachea and phonation normal. Cardiovascular: Rate and Rhythm: Normal rate and regular rhythm. Pulses: Normal pulses. Heart sounds: Normal heart sounds. Pulmonary: Effort: Pulmonary effort is normal. Breath sounds: Normal breath sounds. Abdominal: General: Abdomen is flat. Bowel sounds are normal. Palpations: Abdomen is soft. Musculoskeletal: General: Normal range of motion. Right shoulder: Normal. Left shoulder: Normal. Cervical back: Normal, full passive range of motion without pain and neck supple. No tenderness. No spinous process tenderness. Thoracic back: Normal. Lumbar back: Normal. Right knee: Normal. Left knee: Normal. Right lower leg: No edema. Left lower leg: No edema. Lymphadenopathy: Cervical: No cervical adenopathy. Skin: General: Skin is warm and dry. Neurological: General: No focal deficit present. Mental Status: She is alert and oriented to person, place, and time. Mental status is at baseline. Sensory: Sensation is intact. Motor: Motor function is intact. Psychiatric: Attention and Perception: Attention and perception normal. Mood and Affect: Mood normal. Speech: Speech normal. Behavior: Behavior normal. Thought Content: Thought content normal. Judgment: Judgment normal. Data Reviewed: No new labs ASSESSMENT/PLAN: 1. Dementia with behavioral disturbance (HCC) - ICD9: 294.21, ICD10: F03.918 (primary diagnosis) - Worsening symptoms. 2. Recurrent falls - ICD9: V15.88, ICD10: R29.6 - Refer to PT. If possible patient needs at home. - CONSULT TO PHYSICAL THERAPY 3. Hallucinations - ICD9: 780.1, ICD10: R44.3 - Seeing people, putting diapers on her cat thinking it is a baby. - Advised to give Seroquel at dinner instead of waiting until bedtime since these episodes happen in the evening. 4. 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 Attestation: Madyson Collins DO Scribe Attestation: The patient is seen and examined by Dr. Collins and the following reflects his/her service. Scribed by Christine Strong MA July 28, 2023 4:24 PMProvider Attestation: I, Madyson Collins DO personally performed the services described in this documentation. All medical record entries made by the scribe were at my direction and in my presence. I have reviewed the chart and discharge instructions (if applicable) and agree that the record reflects my personal performance and is accurate and complete. Electronically Signed: Madyson Collins DO, July 28, 2023 4:31 PM documented in this encounter [facility] 06-16-2023 History of Presen t illness Narrative Radiology Service Progress Note PATIENT NAME: Albina Brown DATE OF SERVICE: June 16, 2023 TIME: 5:30 PM PATIENT IDENTITY VERIFICATION COMPLETED USING TWO (2) IDENTIFIERS: Name and Date of confirmed by patient verbally. FALL SCREENING: Has the patient had 2 falls in the last year or 1 fall with injury or currently using an Ambulatory Assistive Device (Walker, Cane, Wheelchair, Crutches, etc.)? No PATIENT GENDER DATA: Female. status: : No status: NO. PATIENT RELEVANT IMPLANT DATA REVIEWED: Yes PATIENT PRESENTS WITH AN IMPLANTABLE OR ATTACHED RAILROAD CAR TRUCK BUILDER: No RADIOLOGY DEPARTMENT: Ultrasound PERIPHERAL IV DATA: Not applicable SIGNED BY: KIRSTIN Verma) June 16, 2023 5:30 PM documented in this encounter [facility] 06-16-2023 Note HNO ID: [id number] Author: SALOME GUERRA RT(Tj) Service: Radiology Author Type: Technologist Type: Progress Notes Filed: 06/16/2023 17:30 Note Text: Radiology Service Progress Note PATIENT NAME: Albina Brown DATE OF SERVICE: June 16, 2023 TIME: 5:30 PM PATIENT IDENTITY VERIFICATION COMPLETED USING TWO (2) IDENTIFIERS: Name and Date of confirmed by patient verbally. FALL SCREENING: Has the patient had 2 falls in the last year or 1 fall with injury or currently using an Ambulatory Assistive Device (Walker, Cane, Wheelchair, Crutches, etc.)? No PATIENT GENDER DATA: Female. status: : No status: NO. PATIENT RELEVANT IMPLANT DATA REVIEWED: Yes PATIENT PRESENTS WITH AN IMPLANTABLE OR ATTACHED RAILROAD CAR TRUCK BUILDER: No RADIOLOGY DEPARTMENT: Ultrasound PERIPHERAL IV DATA: Not applicable SIGNED BY: RT Bayron(Tj) June 16, 2023 5:[address] [facility] 06-16-2023 Note HNO ID: [id number] Author: MADYSON COLLINS DO Service: ? Author Type: Physician Type: Progress Notes Filed: 06/21/2023 23:03 Note Text: [facility] [address] [place] [address] Date of Evaluation: 06/16/2023 Patient Name: Albina Brown : 1940 Chief Complaint: Patient presents with: increase in confusion and aggitation: [id number] states patient is Packing her bags and thinks she lives somewhere else. Fall: Answered yes to fall question on rooming intake Nursing Intake: There are no exam notes on file for this visit. Subjective Ms. Brown is a 83 year old female who presents with the following complaint(s): The history is provided by the patient and a relative (daughter in law). 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 Mental Status Changes This is a new problem. The current episode started in the past 7 days. The problem has been unchanged. Pertinent negatives include no chest pain, coughing, fatigue or weakness. Associated symptoms comments: Visual and auditory hallucinations, not sleeping at night, difficulty getting to sleep. Increase memory loss. . Review of Systems Constitutional: Negative for fatigue and unexpected weight change. HENT: Negative for nosebleeds. Eyes: Negative for redness and visual disturbance. Respiratory: Negative for apnea, cough and shortness of breath. Cardiovascular: Negative for chest pain, palpitations and leg swelling. Neurological: Negative for dizziness, weakness and light-headedness. Hematological: Does not bruise/bleed easily. Psychiatric/Behavioral: Positive for hallucinations. The patient is not nervous/anxious. No past medical history on file. PAST SURGICAL HISTORY Procedure Laterality Date BREAST SURGERY 2019 Breast cancer- left FAMILY HISTORY Problem Relation Age of Onset Hypertension Mother Cancer Father Cancer Brother Social History Tobacco Use Smoking status: Former Types: Cigarettes Smokeless tobacco: Never Vaping Use Vaping Use: Never used Substance Use Topics Alcohol use: Not Currently Drug use: Never Current Outpatient Medications Medication Sig omeprazole (PRILOSEC) 20 mg capsule Take 1 capsule by mouth once daily. tolterodine ER (DETROL LA) 2 mg 24 hr capsule Take 1 capsule by mouth once daily. citalopram (CELEXA) 40 mg tablet TAKE 1 TABLET BY MOUTH EVERY DAY meclizine (ANTIVERT) 25 mg tab Take 1 tablet by mouth three times daily as needed. multivitamin (MULTIPLE VITAMINS ORAL) Take 1 tablet by mouth once daily. (CENTRUM SILVER ADULT 50+ PO) ascorbic acid, vitamin C, (VITAMIN C) 500 mg tablet Take 500 mg by mouth. aspirin 81 mg chewable tablet Take 81 mg by mouth once daily. tamoxifen (NOLVADEX) 20 mg tablet Take 20 mg by mouth once daily. ZINC ACETATE ORAL Take 50 mg by mouth once daily. vitamin B complex (B COMPLEX-VITAMIN B12 ORAL) Take 1,000 mg by mouth once daily. QUEtiapine (SEROQUEL) 25 mg tablet Take 1 tablet by mouth daily at bedtime. donepezil (ARICEPT) 10 mg tablet take 1 tablet by mouth everyday at bedtime (Patient not taking: Reported on 06/16/2023) benzonatate (TESSALON PERLES) 100 mg capsule Take 1 capsule by mouth three times a day as needed for cough. (Patient not taking: Reported on 06/16/2023) memantine XR (NAMENDA XR) 21 mg CSpX Take 1 capsule by mouth once daily. (Patient not taking: Reported on 03/24/2023) omeprazole (PRILOSEC) 20 mg capsule (Patient not taking: Reported on 12/12/2022) donepezil (ARICEPT) 23 mg tablet Take 1 tablet by mouth daily at bedtime. (Patient not taking: Reported on 12/12/2022) donepezil (ARICEPT) 5 mg tablet Take 1 tablet by mouth daily at bedtime. (Patient not taking: Reported on 12/12/2022) Cholecalciferol, Vitamin D3, 25 mcg (1,000 unit) cap Take 1 capsule by mouth. (Patient not taking: Reported on 03/24/2023) simvastatin (ZOCOR) 20 mg tablet Take 20 mg by mouth daily at bedtime. (Patient not taking: Reported on 07/04/2022) No current facility-administered medications for this visit. I have confirmed and edited as necessary the past medical, family and social histories, HPI, and ROS obtained by others. Objective BP 118/74 Pulse 74 Temp 97.4 Ht 5' 3" (1.60m) Wt 178 lb (80.7kg) SpO2 97% BMI 31.54 kg/(m2). Physical Exam Vitals and nursing note reviewed. Constitutional: General: She is not in acute distress. Appearance: Normal appearance. She is well-developed. She is not ill-appearing. HENT: Head: Normocephalic. Right Ear: Tympanic membrane, ear canal and external ear normal. There is no impacted cerumen. Left Ear: Tympanic membrane, ear canal and external ear normal. There is no impacted cerumen. Nose: Nose normal. Mouth/Throat: Mouth: Mucous membranes are moist. Pharynx: Oropharynx is clear. Uvula midline. No oropharyngeal exudate or poste (more content not included)... [facility] 06-16-2023 History of Presen t illness Narrative Images from the original note were not included. [facility] Jaimee Collins DO [address] [place] [address] Date of Evaluation: 06/16/2023 Patient Name: Albina Brown : 1940 Chief Complaint: Patient presents with: increase in confusion and aggitation: [id number] states patient is Packing her bags and thinks she lives somewhere else. Fall: Answered yes to fall question on rooming intake Nursing Intake: There are no exam notes on file for this visit. Subjective Ms. Brown is a 83 year old female who presents with the following complaint(s): The history is provided by the patient and a relative (daughter in law). 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 Mental Status Changes This is a new problem. The current episode started in the past 7 days. The problem has been unchanged. Pertinent negatives include no chest pain, coughing, fatigue or weakness. Associated symptoms comments: Visual and auditory hallucinations, not sleeping at night, difficulty getting to sleep. Increase memory loss. . Review of Systems Constitutional: Negative for fatigue and unexpected weight change. HENT: Negative for nosebleeds. Eyes: Negative for redness and visual disturbance. Respiratory: Negative for apnea, cough and shortness of breath. Cardiovascular: Negative for chest pain, palpitations and leg swelling. Neurological: Negative for dizziness, weakness and light-headedness. Hematological: Does not bruise/bleed easily. Psychiatric/Behavioral: Positive for hallucinations. The patient is not nervous/anxious. No past medical history on file. PAST SURGICAL HISTORY Procedure Laterality Date BREAST SURGERY 2019 Breast cancer- left FAMILY HISTORY Problem Relation Age of Onset Hypertension Mother Cancer Father Cancer Brother Social History Tobacco Use Smoking status: Former Types: Cigarettes Smokeless tobacco: Never Vaping Use Vaping Use: Never used Substance Use Topics Alcohol use: Not Currently Drug use: Never Current Outpatient Medications Medication Sig omeprazole (PRILOSEC) 20 mg capsule Take 1 capsule by mouth once daily. tolterodine ER (DETROL LA) 2 mg 24 hr capsule Take 1 capsule by mouth once daily. citalopram (CELEXA) 40 mg tablet TAKE 1 TABLET BY MOUTH EVERY DAY meclizine (ANTIVERT) 25 mg tab Take 1 tablet by mouth three times daily as needed. multivitamin (MULTIPLE VITAMINS ORAL) Take 1 tablet by mouth once daily. (CENTRUM SILVER ADULT 50+ PO) ascorbic acid, vitamin C, (VITAMIN C) 500 mg tablet Take 500 mg by mouth. aspirin 81 mg chewable tablet Take 81 mg by mouth once daily. tamoxifen (NOLVADEX) 20 mg tablet Take 20 mg by mouth once daily. ZINC ACETATE ORAL Take 50 mg by mouth once daily. vitamin B complex (B COMPLEX-VITAMIN B12 ORAL) Take 1,000 mg by mouth once daily. QUEtiapine (SEROQUEL) 25 mg tablet Take 1 tablet by mouth daily at bedtime. donepezil (ARICEPT) 10 mg tablet take 1 tablet by mouth everyday at bedtime (Patient not taking: Reported on 06/16/2023) benzonatate (TESSALON PERLES) 100 mg capsule Take 1 capsule by mouth three times a day as needed for cough. (Patient not taking: Reported on 06/16/2023) memantine XR (NAMENDA XR) 21 mg CSpX Take 1 capsule by mouth once daily. (Patient not taking: Reported on 03/24/2023) omeprazole (PRILOSEC) 20 mg capsule (Patient not taking: Reported on 12/12/2022) donepezil (ARICEPT) 23 mg tablet Take 1 tablet by mouth daily at bedtime. (Patient not taking: Reported on 12/12/2022) donepezil (ARICEPT) 5 mg tablet Take 1 tablet by mouth daily at bedtime. (Patient not taking: Reported on 12/12/2022) Cholecalciferol, Vitamin D3, 25 mcg (1,000 unit) cap Take 1 capsule by mouth. (Patient not taking: Reported on 03/24/2023) simvastatin (ZOCOR) 20 mg tablet Take 20 mg by mouth daily at bedtime. (Patient not taking: Reported on 07/04/2022) No current facility-administered medications for this visit. I have confirmed and edited as necessary the past medical, family and social histories, HPI, and ROS obtained by others. Objective BP 118/74 Pulse 74 Temp 97.4 Ht 5' 3" (1.60m) Wt 178 lb (80.7kg) SpO2 97% BMI 31.54 kg/(m^2). Physical Exam Vitals and nursing note reviewed. Constitutional: General: She is not in acute distress. Appearance: Normal appearance. She is well-developed. She is not ill-appearing. HENT: Head: Normocephalic. Right Ear: Tympanic membrane, ear canal and external ear normal. There is no impacted cerumen. Left Ear: Tympanic membrane, ear canal and external ear normal. There is no impacted cerumen. Nose: Nose normal. Mouth/Throat: Mouth: Mucous membranes are moist. Pharynx: Oropharynx is clear. Uvula midline. No oropharyngeal exudate or posterior oropharyngeal erythema. Eyes: General: Lids are normal. Vision grossly intact. Gaze aligned appropriately. No scleral icterus. Right eye: No discharge. Left eye: No discharge. Extraocular Movements: Extraocular movements intact. Conjunctiva/sclera: Conjunctivae normal. Pupils: Pupils are equal, round, and reactive to light. Neck: Thyroid: No thyroid mass, thyromegaly or thyroid tenderness. Vascular: No carotid bruit. Trachea: Trachea and phonation normal. Cardiovascular: Rate and Rhythm: Normal rate and regular rhythm. Pulses: Normal pulses. Heart sounds: Murmur heard. Systolic murmur is present with a grade of 3/6. Pulmonary: Effort: Pulmonary effort is normal. Breath sounds: Normal breath sounds. Abdominal: General: Abdomen is flat. Bowel sounds are normal. Palpations: Abdomen is soft. Musculoskeletal: General: Normal range of motion. Right shoulder: Normal. Left shoulder: Normal. Cervical back: Normal, full passive range of motion without pain and neck supple. No tenderness. No spinous process tenderness. Thoracic back: Normal. Lumbar back: Normal. Right knee: Normal. Left knee: Normal. Right lower leg: Swelling present. Edema present. Left lower leg: No edema. Lymphadenopathy: Cervical: No cervical adenopathy. Skin: General: Skin is warm and dry. Neurological: General: No focal deficit present. Mental Status: She is alert and oriented to person, place, and time. Mental status is at baseline. Sensory: Sensation is intact. Motor: Motor function is intact. Psychiatric: Attention and Perception: Attention and perception normal. Mood and Affect: Mood normal. Speech: Speech normal. Behavior: Behavior normal. Thought Content: Thought content normal. Judgment: Judgment normal. Data Reviewed: No new labs ASSESSMENT/PLAN: 1. Hallucinations - ICD9: 780.1, ICD10: R44.3 (primary diagnosis) 2. Systolic murmur - ICD9: 785.2, ICD10: R01.1 3. Dementia with behavioral disturbance (HCC) - ICD9: 294.21, ICD10: F03.918 - Start Seroquel at HS. If not tolerating 25mg can reduce and take half tablet. 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 Class 1 obesity with body mass index (BMI) of 31.0 to 31.9 in adult, unspecified obesity type, unspecified whether serious comorbidity present - ICD9: 278.00, V85.31, ICD10: E66.9, Z68.31 6. Generalized edema - ICD9: 782.3, ICD10: R60.1 - Right lower extremity. - Check US for concern of DVT - US DVT LOWER RIGHT 7. At risk for falling - ICD9: V15.88, ICD10: Z91.81 Madyson Collins DO Return if symptoms worsen or fail to improve. Attestation: Scribe Statement: Aleshia Strong MA am scribing for, and in the presence of, Madyson Collins DO June 16, 2023 1:54 PM. Physician Statement: IMadyson DO, personally performed the services described in the documentation, as scribed by Christine Strong in my presence, and it is both accurate and complete June 16, 2023 1:58 PM. documented in this encounter [facility] 05-26-2023 Miscellaneous Notes Pharmacy faxed requesting the following refill Refill(s) Requested: Requested Prescriptions Pending Prescriptions Disp Refills donepezil (ARICEPT) 10 mg tablet [Pharmacy Med Name: DONEPEZIL HCL 10 MG TABLET] 90 tablet 3 Sig: take 1 tablet by mouth everyday at bedtime ALLERGIES No Known Allergies (home) [phone] (cell) Last Office Visit Date: 03/24/2023 Last [facility] Visit: Visit date not found Future Appointment: 06/26/2023 The patients preferred pharmacy has been captured for this encounter? yes Request is for script(s) to be escript to pharmacy. Kailyn Mead LPN documented in this encounter [facility] 04-03-2023 Note HNO ID: [id number] Author: Blanca Lewis APRN.DROSSER Service: ? Author Type: Nurse Practitioner Type: Progress Notes Filed: 04/03/2023 7:17 AM Note Text: This is an Express Care eVisit note for Albina Brown eVisit/Questionnaire reviewed The chief complaint for the visit - Patient presents with: Cough Sinus Problem Recommendations/Treatment plan - Rx as below plus self care. See My Chart Message to patient. Recommendation for follow up - PRN Time spent: 5-10 minutes The following approved medication requests have been transmitted electronically. Requested Prescriptions Signed Prescriptions Disp Refills ipratropium bromide (ATROVENT) 42 mcg (0.06 %) nasal spray 15 mL 0 Sig: Use 1 [place] in each nostril three times a day for 7 days. benzonatate (TESSALON PERLES) 100 mg capsule 40 capsule 0 Sig: Take 1 capsule by mouth three times a day as needed for cough. Blanca Lewis APRN.DROSSER [facility] 03-24-2023 Note HNO ID: [id number] Author: Madyson Collins DO Service: ? Author Type: Physician Type: Progress Notes Filed: 03/30/2023 8:55 PM Note Text: [facility] Medicine [place] DO [address] [place] [address] Date of Evaluation: 03/24/2023 Patient Name: Albina Brown : 1940 Chief Complaint: Patient presents with: Hospital Follow Up: [facility] Fall: Answered yes to falls in last year. Having PT in the home 3 x a week recently lost in January Referral Request: Used to have a hearing aid for left ear and quit working. Nursing Intake: There are no exam notes on file for this visit. Subjective Ms. Brown is a 82 year old female who presents with the following complaint(s): The history is provided by the patient and a relative (daughter in law). GERD She complains of heartburn. She reports no chest pain or no coughing. This is a chronic problem. The current episode started more than 1 year ago. Pertinent negatives include no fatigue. Hypercholesterolemia This is a chronic problem. The current episode started more than 1 year ago. Pertinent negatives include no chest pain or shortness of breath. Depression Pertinent negatives include no weakness. This is a chronic problem. The problem has been gradually improving since onset. Suspected agents: recent loss of . Review of Systems Constitutional: Negative for fatigue and unexpected weight change. HENT: Positive for hearing loss. Negative for nosebleeds. Eyes: Negative for redness and visual disturbance. Respiratory: Negative for apnea, cough and shortness of breath. Cardiovascular: Negative for chest pain, palpitations and leg swelling. Gastrointestinal: Positive for heartburn. Neurological: Negative for dizziness, weakness and light-headedness. Hematological: Does not bruise/bleed easily. Psychiatric/Behavioral: Positive for depression. The patient is not nervous/anxious. No past medical history on file. PAST SURGICAL HISTORY Procedure Laterality Date BREAST SURGERY 2019 Breast cancer- left FAMILY HISTORY Problem Relation Age of Onset Hypertension Mother Cancer Father Cancer Brother Social History Tobacco Use Smoking status: Former Types: Cigarettes Smokeless tobacco: Never Vaping Use Vaping Use: Never used Substance Use Topics Alcohol use: Not Currently Drug use: Never Current Outpatient Medications Medication Sig tolterodine ER (DETROL LA) 2 mg 24 hr capsule Take 1 capsule by mouth once daily. citalopram (CELEXA) 40 mg tablet TAKE 1 TABLET BY MOUTH EVERY DAY meclizine (ANTIVERT) 25 mg tab Take 1 tablet by mouth three times daily as needed. multivitamin (MULTIPLE VITAMINS ORAL) Take 1 tablet by mouth once daily. (CENTRUM SILVER ADULT 50+ PO) ascorbic acid, vitamin C, (VITAMIN C) 500 mg tablet Take 500 mg by mouth. aspirin 81 mg chewable tablet Take 81 mg by mouth once daily. tamoxifen (NOLVADEX) 20 mg tablet Take 20 mg by mouth once daily. ZINC ACETATE ORAL Take 50 mg by mouth once daily. vitamin B complex (B COMPLEX-VITAMIN B12 ORAL) Take 1,000 mg by mouth once daily. omeprazole (PRILOSEC) 20 mg capsule Take 1 capsule by mouth once daily. memantine XR (NAMENDA XR) 21 mg CSpX Take 1 capsule by mouth once daily. (Patient not taking: Reported on 03/24/2023) omeprazole (PRILOSEC) 20 mg capsule (Patient not taking: Reported on 12/12/2022) donepezil (ARICEPT) 10 mg tablet Take 1 tablet by mouth daily at bedtime. (Patient not taking: Reported on 03/24/2023) donepezil (ARICEPT) 23 mg tablet Take 1 tablet by mouth daily at bedtime. (Patient not taking: Reported on 12/12/2022) donepezil (ARICEPT) 5 mg tablet Take 1 tablet by mouth daily at bedtime. (Patient not taking: Reported on 12/12/2022) Cholecalciferol, Vitamin D3, 25 mcg (1,000 unit) cap Take 1 capsule by mouth. (Patient not taking: Reported on 03/24/2023) simvastatin (ZOCOR) 20 mg tablet Take 20 mg by mouth daily at bedtime. (Patient not taking: Reported on 07/04/2022) No current facility-administered medications for this visit. I have confirmed and edited as necessary the past medical, family and social histories, HPI, and ROS obtained by others. Objective BP 124/70 Pulse 87 Temp 98.1 Ht 5' 3" (1.60m) Wt 170 lb (77.1kg) SpO2 97% BMI 30.12 kg/(m2). Physical Exam Vitals and nursing note reviewed. Constitutional: General: She is not in acute distress. Appearance: Normal appearance. She is well-developed. She is not ill-appearing. HENT: Head: Normocephalic. Right Ear: Tympanic membrane, ear canal and external ear normal. There is no impacted cerumen. Left Ear: Tympanic membrane, ear canal and external ear normal. There is no impacted cerumen. Nose: Nose normal. Mouth/Throat: Mouth: Mucous membranes are moist. Pharynx: Oropharynx is (more content not included)... [facility] 03-24-2023 History of Presen t illness Narrative Images from the original note were not included. [facility] Jaimee Collins DO [address] [place] [address] Date of Evaluation: 03/24/2023 Patient Name: Albina Brown : 1940 Chief Complaint: Patient presents with: Hospital Follow Up: [facility] Fall: Answered yes to falls in last year. Having PT in the home 3 x a week recently lost in January Referral Request: Used to have a hearing aid for left ear and quit working. Nursing Intake: There are no exam notes on file for this visit. Subjective Ms. Brown is a 82 year old female who presents with the following complaint(s): The history is provided by the patient and a relative (daughter in law). GERD She complains of heartburn. She reports no chest pain or no coughing. This is a chronic problem. The current episode started more than 1 year ago. Pertinent negatives include no fatigue. Hypercholesterolemia This is a chronic problem. The current episode started more than 1 year ago. Pertinent negatives include no chest pain or shortness of breath. Depression Pertinent negatives include no weakness. This is a chronic problem. The problem has been gradually improving since onset. Suspected agents: recent loss of . Review of Systems Constitutional: Negative for fatigue and unexpected weight change. HENT: Positive for hearing loss. Negative for nosebleeds. Eyes: Negative for redness and visual disturbance. Respiratory: Negative for apnea, cough and shortness of breath. Cardiovascular: Negative for chest pain, palpitations and leg swelling. Gastrointestinal: Positive for heartburn. Neurological: Negative for dizziness, weakness and light-headedness. Hematological: Does not bruise/bleed easily. Psychiatric/Behavioral: Positive for depression. The patient is not nervous/anxious. No past medical history on file. PAST SURGICAL HISTORY Procedure Laterality Date BREAST SURGERY 2019 Breast cancer- left FAMILY HISTORY Problem Relation Age of Onset Hypertension Mother Cancer Father Cancer Brother Social History Tobacco Use Smoking status: Former Types: Cigarettes Smokeless tobacco: Never Vaping Use Vaping Use: Never used Substance Use Topics Alcohol use: Not Currently Drug use: Never Current Outpatient Medications Medication Sig tolterodine ER (DETROL LA) 2 mg 24 hr capsule Take 1 capsule by mouth once daily. citalopram (CELEXA) 40 mg tablet TAKE 1 TABLET BY MOUTH EVERY DAY meclizine (ANTIVERT) 25 mg tab Take 1 tablet by mouth three times daily as needed. multivitamin (MULTIPLE VITAMINS ORAL) Take 1 tablet by mouth once daily. (CENTRUM SILVER ADULT 50+ PO) ascorbic acid, vitamin C, (VITAMIN C) 500 mg tablet Take 500 mg by mouth. aspirin 81 mg chewable tablet Take 81 mg by mouth once daily. tamoxifen (NOLVADEX) 20 mg tablet Take 20 mg by mouth once daily. ZINC ACETATE ORAL Take 50 mg by mouth once daily. vitamin B complex (B COMPLEX-VITAMIN B12 ORAL) Take 1,000 mg by mouth once daily. omeprazole (PRILOSEC) 20 mg capsule Take 1 capsule by mouth once daily. memantine XR (NAMENDA XR) 21 mg CSpX Take 1 capsule by mouth once daily. (Patient not taking: Reported on 03/24/2023) omeprazole (PRILOSEC) 20 mg capsule (Patient not taking: Reported on 12/12/2022) donepezil (ARICEPT) 10 mg tablet Take 1 tablet by mouth daily at bedtime. (Patient not taking: Reported on 03/24/2023) donepezil (ARICEPT) 23 mg tablet Take 1 tablet by mouth daily at bedtime. (Patient not taking: Reported on 12/12/2022) donepezil (ARICEPT) 5 mg tablet Take 1 tablet by mouth daily at bedtime. (Patient not taking: Reported on 12/12/2022) Cholecalciferol, Vitamin D3, 25 mcg (1,000 unit) cap Take 1 capsule by mouth. (Patient not taking: Reported on 03/24/2023) simvastatin (ZOCOR) 20 mg tablet Take 20 mg by mouth daily at bedtime. (Patient not taking: Reported on 07/04/2022) No current facility-administered medications for this visit. I have confirmed and edited as necessary the past medical, family and social histories, HPI, and ROS obtained by others. Objective BP 124/70 Pulse 87 Temp 98.1 Ht 5' 3" (1.60m) Wt 170 lb (77.1kg) SpO2 97% BMI 30.12 kg/(m^2). Physical Exam Vitals and nursing note reviewed. Constitutional: General: She is not in acute distress. Appearance: Normal appearance. She is well-developed. She is not ill-appearing. HENT: Head: Normocephalic. Right Ear: Tympanic membrane, ear canal and external ear normal. There is no impacted cerumen. Left Ear: Tympanic membrane, ear canal and external ear normal. There is no impacted cerumen. Nose: Nose normal. Mouth/Throat: Mouth: Mucous membranes are moist. Pharynx: Oropharynx is clear. Uvula midline. No oropharyngeal exudate or posterior oropharyngeal erythema. Eyes: General: Lids are normal. Vision grossly intact. Gaze aligned appropriately. No scleral icterus. Right eye: No discharge. Left eye: No discharge. Extraocular Movements: Extraocular movements intact. Conjunctiva/sclera: Conjunctivae normal. Pupils: Pupils are equal, round, and reactive to light. Neck: Thyroid: No thyroid mass, thyromegaly or thyroid tenderness. Vascular: No carotid bruit. Trachea: Trachea and phonation normal. Cardiovascular: Rate and Rhythm: Normal rate and regular rhythm. Pulses: Normal pulses. Heart sounds: Normal heart sounds. Pulmonary: Effort: Pulmonary effort is normal. Breath sounds: Normal breath sounds. Abdominal: General: Abdomen is flat. Bowel sounds are normal. Palpations: Abdomen is soft. Musculoskeletal: General: Normal range of motion. Right shoulder: Normal. Left shoulder: Normal. Cervical back: Normal, full passive range of motion without pain and neck supple. No tenderness. No spinous process tenderness. Thoracic back: Normal. Lumbar back: Normal. Right knee: Normal. Left knee: Normal. Right lower leg: No edema. Left lower leg: No edema. Lymphadenopathy: Cervical: No cervical adenopathy. Skin: General: Skin is warm and dry. Neurological: General: No focal deficit present. Mental Status: She is alert and oriented to person, place, and time. Mental status is at baseline. Sensory: Sensation is intact. Motor: Motor function is intact. Psychiatric: Attention and Perception: Attention and perception normal. Mood and Affect: Mood normal. Speech: Speech normal. Behavior: Behavior normal. Thought Content: Thought content normal. Judgment: Judgment normal. Data Reviewed: Most recent labs and imaging results. ASSESSMENT/PLAN: 1. GERD without esophagitis - ICD9: 530.81, ICD10: K21.9 (primary diagnosis) - OMEPRAZOLE 20 MG CAPSULE,DELAYED RELEASE 2. Hyperlipidemia, mixed - ICD9: 272.2, ICD10: E78.2 3. Dementia without behavioral disturbance (HCC) - ICD9: 294.20, ICD10: F03.90 4. Obesity, Class I, BMI 30-34.9 - ICD9: 278.00, ICD10: E66.9 5. Other depression - ICD9: 311, ICD10: F32.89 6. Hearing loss of left ear, unspecified hearing loss type - ICD9: 389.9, ICD10: H91.92 - HEARING AIDS 7. 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 Return in about 6 months (around 09/23/2023). Madyson Collins DO Attestation: Scribe Statement: Aleshia Strong am scribing for, and in the presence of, Madyson Collins DO March 24, 2023 4:34 PM. Physician Statement: IMadyson DO, personally performed the services described in the documentation, as scribed by Christine Strong in my presence, and it is both accurate and complete March 24, 2023 4:42 PM. documented in this encounter [facility] 03-06-2023 Miscellaneous Notes Next Site of Care Admission Date: 02/27/2023 07:50 PM Patient Name: ALBINA BROWN Location: [facility] [place] [id number] Date of : 1940 Placement Information Referral Type:Home Health Care Services - Resume Referral ID:[id number] Provider Name:[facility] Address 1:[address] [place] [address] Address 2: City:[place] Selection Factors:Active with Agency State:[place] SW follow up. Patient has been discharged. Notified patient's daughter in law, Renetta of this. She plans to be at hospital to moss picker patient at 1 pm. States that she is OK with patient discharging home today and resuming [facility] services. Renetta also states that her Namenda dose was lowered and she would like either a hard script or the script to be sent to her home pharmacy; [facility]. Updated RN of this. Attempted to speak with patient's waiver service technician, Clair. Left voicemail requesting call back. No other SW needs at this time. SW remains available if any other needs or concerns arise. SW follow up. Received a voicemail from patient's daughter in law, Renetta. She will be at hospital today at 1 pm to moss picker patient if patient is ready for discharge. Epic chat sent to Dr. Diaz about discharge today. Will follow. SW follow up. Received a phone call from patient's [facility] waiver service technician, Clair ([phone]). She states that patient has a emergency response button with GPS, 1 day/week at the [facility], multiple meal delivery; 3 days a week, and as of today start of care of 20 hours of aide service during the week. Clair states that she received a phone call from patient's assigned APS worker, Kraig. States that APS is concerned about patient being left home alone for long periods of time. Clair states that patient often refuses PT and OT to come into home and refuses to go to [facility]. Clair states that patient refuses when she is feeling overly tired and does not want to do much. Clair states that a potential idea for patient is a respite stay and she could coordinate this if the patient and family was willing. Clair requesting to be updated when patient is planned for discharge. Spoke with [id number] via phone to discuss discharge planning. Renetta states that she is caught off guard and does not want to patient to be discharged today. States that she will need to arrange for services for the aide to be at patient's home. Renetta states that she would be interested in respite but is not sure how it would be paid for. Explained to daughter in law that respite stays can be coordinated either in the community or sometimes the hospital depending on if a chosen facility has availability. [id number] states that [facility] is close and that would be a preferred facility. Explained to [id number] that social work can talk with admissions to determine how respite stay is paid for and how long it lasts. Urbsmhos-gw-tfy okay with this. Spoke with Amanda in admissions at [facility]. Per admissions, respite stays are either billed through private pay, traditional Medicaid, or hospice. If family is willing to pay private pay for respite stays it can range anywhere between $260-$300 a day. Spoke with [id number] Renetta again. Informed her of conversation with admissions at [facility] regarding respite stay. DNS states that she is not interested in respite stay at this time and will discuss this later in the future with [facility] waiver service technician Clair. Renetta states that she is not able to have any of patient's family or aids coordinated to be at home tonight. DNS states that she would prefer to have patient discharged tomorrow or through the weekend. Explained to her that patient has been ready for discharge for 2 days. Asked Renetta how she plans to provide 24-hour supervision over weekend. Renetta states that she will be at house with her as they are usually there every weekend. Renetta expresses that she is experiencing caregivers burnout. Provided her with emotional support and also notified her that a older adult social work specialist has been added to patient's home health care caseload. Renetta grateful for this. She states that she will talk with her (patient's son) and [id number] to see if and how they can coordinate someone being at the house tomorrow if discharged tomorrow. Renetta asking about APS being involved. Explained that SW is not told why APS is involved at this time. Renetta also asking if SW notified APS of safety concerns. Explained that APS called this SW and informed them that they are involved and that there was no further information provided from APS worker. Spoke with APS workerKraig and provided her with an update of above. No other SW needs at this time. social work will continue to follow. Problem: Knowledge Deficit Goal: Patient/family/caregiver demonstrates understanding of disease process, treatment plan, medications, and discharge instructions Outcome: Progressing Problem: Potential for Compromised Skin Integrity Goal: Skin Integrity is Maintained or Improved Outcome: Progressing Goal: Nutritional status is improving Outcome: Progressing Problem: Urinary Incontinence Goal: Perineal skin integrity is maintained or improved Outcome: Progressing Problem: Problem Interventions Goal: Promote nutritional intake Outcome: Progressing The patient is Moderately Stable - Low risk of patient condition declining or worsening The patient's goals for the shift include to go home The clinical goals for the shift include to go home Over the shift, the patient did not make progress toward the following goals. Barriers to progression include . Recommendations to address these barriers include . Spoke with APS workerKraig. States that she was recently called from [facility] for concerns for patient at home alone and not having 24/7 care at home. APS worker asking for update on patient's discharge plan. Explained that PT/OT recommend home with home health PT/OT, however, with concerns for safety, recommendations for SNF were made. Explained that patient walked 60ft independently and 100ft with a FWW. APS worker states that she made a visit [facility] today and spoke with daughter in law. States that there was no mention to daughter in law that she would like patient placed in an ECF. Explained that SW can assist with this if the daughter in law is wanting assisted care placement. Patient is not eligible for SNF at this time. Explained to APS worker that [facility] services will be restarted and there will be a older adult social work specialist added to patient's case. Also asked for APS worker to follow up with [facility] and this SW will as well. APS worker wanting for SW to contact her when patient has been discharged. Will follow. S/W, call S/W received a call from [facility] worker expressing concern over patient at home. Kraig noted the patient has a diagnosis of Dementia and does not have 24/7 care at home. There is also an indication of wandering at home. I did pass this along to covering Unit S/W. Jenaro at [facility]: [phone]. Start PACC Note Home Health Referral Educated patient on Home Care and services available. Patient offered choice of available HHC and agreeable to SN, PT, SW services with [facility]. Care Types: None Isolation Precautions: No active isolations Social Determinates of Health: Tobacco Use: Low Risk (02/27/2023) Patient History Smoking Tobacco Use: Never Smokeless Tobacco Use: Never Passive Exposure: Not on file Social History Substance and Sexual Activity Alcohol Use None Social History Substance and Sexual Activity Drug Use Not on file Does the patient have any financial resource strain? No Does the patient have any food insecurities? No Does the patient have any housing instabilities? No If any of the above is noted as yes - consider a SHOW HOST/HOSTESS evaluation once the patient returns home. START PATIENT REGISTRATION INFORMATION Order Information Order Signing Physician: Antoni Diaz MD Service Ordered RN ?: Yes Service Ordered PT ?: Yes Service Ordered OT ?: No Service Ordered ST ?: No Service Ordered SHOW HOST/HOSTESS?:Yes Service Ordered CONTROL ELECTRICIAN?: No Following Physician: MADYSON COLLINS DO Following Physician Overseeing Physician: MADYSON COLLINS DO (Required for Residents only) Agreeable to Follow? Yes Date/Time of Call 03/04/23 10:19 AM, Spoke with: already active Care Coordination Same Day SOC?: No Primary Care Physician: MADYSON COLLINS DO Primary Care Physician Primary Care Physician Address: [address] / [facility] [address] Visit Instructions: N/A Service Discharge Location Type: Home with Home Health Care Service Facility Name: N/A Service Floor Facility: N/A Service Room No: N/A Demographics Patient Last Name: Kevin Patient First Name: Albina Language/Communication Barrier: n/a Service Address: [id number] [place] [address] [address] Service City: [place] Service ST: [place] Service ZIP: [address] Service (home) Other phone numbers: Telephone Information: Emergency Contact: Extended Emergency Contact Information Primary Emergency Contact: Renetta Rosenthal Relation: Child Secondary Emergency Contact: Ted Domínguez Relation: Child Admission Information Admit Date: 02/27/2023 Patient status at discharge: Inpatient Admitting Diagnosis Failure to thrive in adult [R62.7] Caregiver Information Caregiver First Name: n/a Caregiver Last Name: n/a Caregiver Relationship to Patient n/a Caregiver Phone Number: n/a Caregiver Notes: N/A CareCloud-Panelfly List No END PATIENT REGISTRATION INFORMATION Pt Home Health goal to stay home and care for myself COVID Status 1. Do you have any upper respiratory symptoms (cough, SOB, Fever)? No 2. Have you been exposed to anyone with COVID-19 Virus? No Answer only if pending or positive for COVID-19? 1. Agreeable to wear PPE at each visit? No 2. Is the hospital supplying them with PPE upon Discharge? No Start PACC Summary General Report/ Additional Comments Patient active with [facility], will add SW to case Discharge Date: 03/04/23 Referral Source-PACC: (Hospital/Unit): 1E / [id number] B End PACC Note Problem: Knowledge Deficit Goal: Patient/family/caregiver demonstrates understanding of disease process, treatment plan, medications, and discharge instructions Outcome: Progressing Problem: Potential for Compromised Skin Integrity Goal: Skin Integrity is Maintained or Improved Outcome: Progressing Goal: Nutritional status is improving Outcome: Progressing Problem: Urinary Incontinence Goal: Perineal skin integrity is maintained or improved Outcome: Progressing The patient is Moderately Stable - Low risk of patient condition declining or worsening The patient's goals for the shift include to go home The clinical goals for the shift include to go home Over the shift, the patient did not make progress toward the following goals. Barriers to progression include . Recommendations to address these barriers include . Sw consult for discharge planning. PT seen and assessed patient. Plan for patient to return home. Patient being seen and assessed by geriatrics and psychiatry as well. Patient's daughter in law, Renetta involved. Patient connected with [facility] and was approved 20 hours of [facility] services, however, the services has not started. If family wants to pursue assisted care placement, it can be arranged through [facility] or if they have a facility in mind and have the income to place from hospital, SW can assist. However, patient does not have skilled requirements to go to SNF at this time. Insurance would not approve for patient to admit to SNF as she is walking independently and with FWW. Will discuss discharge planning with covering PATRICK Kong. SW to follow. Patient is currently active with [facility]. The patients current certification period will on 04/12/23. The patient is currently receiving SN, PT services through the agency. Net Finisher to continue to follow. Care Managment Initial Assessment Date: 03/02/2023 Patient Name: Albina Brown : 1940 Patient Information Source of Information: 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 Software Engineer Name/Contact Information: Renetta THOMSON Cognition/Language: Confused at baseline Permission given to speak with patient technical services representative/caregiver as indicated: Yes Confirmation of Payer with patient/family: Yes Payer Name: [place] Medicare Advantage; [facility] Medicaid : No Confirmation of Primary Care Physician: Confirmed PCP Name: Dr. Dennis Coughlin Seen in last 2 years?: Yes Primary Caregiver: Family If assistance needed, confirmed caregiver ready, willing and able to care for patient at discharge: Yes Confirmed with: ALIX Weber Living Arrangements Current Residence: ([address]) Number of Floors Number of Entry Steps: 2 Bed/Bath Levels: Both first floor Facility: Facility Name: Plan to Return: Lives with: Children Support Systems: Children Activities of Daily Living Ambulation: Assistance Bathing/Dressing: Assistance Elimination/Continence/Toiletin g: Assistance Feeding: Assistance Who Assists with Activities of Daily Living: care givers, family Instrumental Activities of Daily Living Prescription Coverage: Yes Pharmacy Used: [facility] Medication Management: Assistance Type: Dose packaging system Who assists with medication securing and setup?: DIL Transportation/Shopping: Assistance Provider Transportation/Shopping Assistance Provider Name: family Transportation Mode: Car Needs Assistance with Transportation at Discharge: No Meal Preparation: Assistance Provider Meal Prep Assistance Provider Name: family and caregivers Laundry/Cleaning: Assistance Provider Laundry/Cleaning Assistance Provider Name: family and caregivers Finances/Bill Paying: Assistance Provider Finances/Bill Payer Assistance Provider Name: family Communication: Assistance Types of Care Services/Equipment Utilized Care Services: Skilled Home Health Services, Passport/Waiver Care Services Provider Name: [facility] RN/PT/OT; family friend; Passport working on getting CONTROL ELECTRICIAN Dialysis Type: Durable Medical Equipment: Cane, Walker (refuses to use) Patient's Goal/Discharge Plan Patient expects to be discharged to: TBD Discharge Planning Actions: Continue to follow Patient's Choice Rights and [employer] and Collaborative Relationships Disclosed as Indicated for Post-Acute Care: Interdisciplinary Team Engagement: Geriatric Assessment, Home Health Care Social Work Referral for: Additional Information: Pt with dementia admitted with decline is mental and physical status, UTI, dehydration. Receiving IV ATBX. 01/21/2023 - pt has been declining ever since per family. Spoke with pt's DIL Renetta Rosenthal via phone, introduced self and role. [facility] pt resides in a trailer alone. Family friend and DIL provide basic care, but pt is alone at times. Pt no longer drives. Pt refuses to use cane or walker and is very unsteady. [facility] pt has been refusing to eat, drink, shower recently. Active with [facility] RN/PT/OT. Active with GERA Mcintyre [phone]. 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 Discussed PT/OT recommendation for Home with HHC and 10/11 assist vs SNF. DIL would like to wait for the geriatric evaluation before making final decision. Also discussed other options such as private duty companions, caregivers, memory care facilities for in the future. [facility] pt's had been at [facility]. DCP: TBD: home with HHC vs SNF TCC will cont to follow. Che Howell RN The patient is Moderately Stable - Low risk of patient condition declining or worsening The patient's goals for the shift include to go home The clinical goals for the shift include to go home The patient is Moderately Stable - Low risk of patient condition declining or worsening The patient's goals for the shift include to go home The clinical goals for the shift include Problem: Knowledge Deficit Goal: Patient/family/caregiver demonstrates understanding of disease process, treatment plan, medications, and discharge instructions Outcome: Not Progressing Problem: Potential for Compromised Skin Integrity Goal: Skin Integrity is Maintained or Improved Outcome: Progressing Flowsheets (Taken 02/28/2023 0527) Skin integrity is maintained or improved: Assess and monitor skin integrity The patient is Moderately Stable - Low risk of patient condition declining or worsening The patient's goals for the shift include to go home The clinical goals for the shift include to go home documented in this encounter [facility] 03-06-2023 Note Formatting of this n ote might be different from the original. Next Site of Care Admission Date: 02/27/2023 07:50 PM Patient Name: ALBINA BROWN Location: [facility] [address] [facility] [id number] B Date of : 1940 Placement Information Referral Type:Home Health Care Services - Resume Referral ID:[id number] Provider Name:[facility] Address 1:[address] [facility] Address 2: City:[place] Selection Factors:Active with Agency State:[place] [facility] 03-06-2023 Note Formatting of this n ote might be different from the original. Next Site of Care Admission Date: 02/27/2023 07:50 PM Patient Name: ALBINA BROWN Location: [address]/[facility] [id number] B Date of : 1940 Placement Information Referral Type:Home Health Care Services - Resume Referral ID:[id number] Provider Name:[facility] Address 1:[address] Address 2: City:[place] Selection Factors:Active with Agency State:[place] [facility] 03-06-2023 Note Hospitalist Discharg e Summary Albina Brown : 1940 Admit date: 02/27/2023 Discharge date: 03/06/2023 Admitting Physician: Angelito Matson MD Primary Care Physician: MADYSON COLLINS DO Visit Status: Admission Code Status: Full Code Discharge Diagnoses: Acute encephalopathy. Progressive dementia. Failure to thrive. Dehydration Urinary tract infection Hypertension Hyperlipidemia. History of: Breast cancer-on tamoxifen. Depression/anxiety Gastroesophageal reflux disease. Hospital Course: See discharge diagnoses list above and medication adjustments below in med rec.The patient is discharged in improved and stable condition. Patient's confusion significantly better, mental status close to baseline. Answering my questions appropriately. Finished antibiotic course for urinary tract infection. Geriatrics evaluated the patient-diagnosed with likely Alzheimer's disease. Geriatrics recommended to taper down memantine. Continue Celexa 40 mg daily Poor IADL/ADLs in the setting of her dementia and depression. Oral intake improved. Discontinued IV fluids. PT OT evaluated the patient recommended home with home health care. Discharging patient home in stable condition. Consults: IP CONSULT TO SOCIAL WORK IP CONSULT TO DIETITIAN IP CONSULT TO GERIATRICS IP CONSULT TO PSYCHIATRY IP CONSULT TO HOME CARE NEEDS Discharge Instructions: Diet: Adult diet Regular Activity: as tolerated Recommended Outpatient Tests: Disposition: Patient discharged in stable condition to Home. Greater than 30 minutes spent discharging the patient and coming up with patient discharge plan. Vitals: BP (!) 117/47 (BP Location: Right arm, Patient Position: Lying) Pulse 66 Temp 36.1 ?C (97 ?F) (Temporal) Resp 16 Ht 5' 4" (1.626 m) Wt 161 lb 13.1 oz (73.4 kg) SpO2 94% BMI 27.78 kg/m? Pulse Ox: SpO2 Av % Min: 94 % Max: 96 % Supplemental O2: General appearance: No apparent distress, appears stated age and cooperative with exam, frail elderly female in NAD, AAOx2 Respiratory: CTA BL, Cardiovascular: Regular rate and rhythm with no murmur Abdomen: Soft, non-tender, non-distended Skin: Skin color, texture, turgor normal. No rashes or lesions. Distal pulses intact in BL LE. No edema in BL LE. Neurologic: grossly non-focal. Discharge Medications: @[email or web address]@ Recommended Follow-up: [facility] [address] [facility] [address] [facility] [address] Follow up in 1 month(s) [phone] Dementia evaluation @[email or web address]@ Complexity of Follow up: [] Moderate Complexity: follow up within 7-14 calendar days (20321) [x] Severe Complexity: follow up within 7 calendar days (87480) Follow up Testing, Pending results or Referrals at Transitional Care Visit: [x] yes [] no Instructions to MA: Please call patient on day after discharge (must document patient contacted within 2 business days of discharge). Follow up questions for MA: 1. Did you get medications filled and taking them as instructed from discharge? 2. Are you following your discharge instructions from your hospital stay? 3. Please confirm patient is scheduled for a follow up appointment within the above time frame. Signed: Antoni Diaz MD Division of Hospitalist Medicine Inpatient Medical Services/[facility] 03/06/2023, 1:37 PM [facility] 03-06-2023 Hospital course Narrative Hospitalist Discharge Summary Albina Brown : 1940 Admit date: 02/27/2023 Discharge date: 03/06/2023 Admitting Physician: Angelito Matson MD Primary Care Physician: MADYSON COLLINS DO Visit Status: Admission Code Status: Full Code Discharge Diagnoses: Acute encephalopathy. Progressive dementia. Failure to thrive. Dehydration Urinary tract infection Hypertension Hyperlipidemia. History of: Breast cancer-on tamoxifen. Depression/anxiety Gastroesophageal reflux disease. Hospital Course: See discharge diagnoses list above and medication adjustments below in med rec.The patient is discharged in improved and stable condition. Patient's confusion significantly better, mental status close to baseline. Answering my questions appropriately. Finished antibiotic course for urinary tract infection. Geriatrics evaluated the patient-diagnosed with likely Alzheimer's disease. Geriatrics recommended to taper down memantine. Continue Celexa 40 mg daily Poor IADL/ADLs in the setting of her dementia and depression. Oral intake improved. Discontinued IV fluids. PT OT evaluated the patient recommended home with home health care. Discharging patient home in stable condition. Consults: IP CONSULT TO SOCIAL WORK IP CONSULT TO DIETITIAN IP CONSULT TO GERIATRICS IP CONSULT TO PSYCHIATRY IP CONSULT TO HOME CARE NEEDS Discharge Instructions: Diet: Adult diet Regular Activity: as tolerated Recommended Outpatient Tests: Disposition: Patient discharged in stable condition to Home. Greater than 30 minutes spent discharging the patient and coming up with patient discharge plan. Vitals: BP (!) 117/47 (BP Location: Right arm, Patient Position: Lying) Pulse 66 Temp 36.1 C (97 F) (Temporal) Resp 16 Ht 5' 4" (1.626 m) Wt 161 lb 13.1 oz (73.4 kg) SpO2 94% BMI 27.78 kg/m Pulse Ox: SpO2 Av % Min: 94 % Max: 96 % Supplemental O2: General appearance: No apparent distress, appears stated age and cooperative with exam, frail elderly female in NAD, AAOx2 Respiratory: CTA BL, Cardiovascular: Regular rate and rhythm with no murmur Abdomen: Soft, non-tender, non-distended Skin: Skin color, texture, turgor normal. No rashes or lesions. Distal pulses intact in BL LE. No edema in BL LE. Neurologic: grossly non-focal. Discharge Medications: @[email or web address]@ Recommended Follow-up: [place] [facility] [address] [facility] [address] Follow up in 1 month(s) [phone] Dementia evaluation @[email or web address]@ Complexity of Follow up: [] Moderate Complexity: follow up within 7-14 calendar days (85980) [x] Severe Complexity: follow up within 7 calendar days (70459) Follow up Testing, Pending results or Referrals at Transitional Care Visit: [x] yes [] no Instructions to MA: Please call patient on day after discharge (must document patient contacted within 2 business days of discharge). Follow up questions for MA: 1. Did you get medications filled and taking them as instructed from discharge? 2. Are you following your discharge instructions from your hospital stay? 3. Please confirm patient is scheduled for a follow up appointment within the above time frame. Signed: Antoni Diaz MD [facility] 03/06/2023, 1:37 PM documented in this encounter [facility] 03-06-2023 Note Formatting of this n ote might be different from the original. SW follow up. Patient has been discharged. Notified patient's daughter in law, Renetta of this. She plans to be at hospital to moss picker patient at 1 pm. States that she is OK with patient discharging home today and resuming HHC services. Renetta also states that her Namenda dose was lowered and she would like either a hard script or the script to be sent to her home pharmacy; [facility]. Updated RN of this. Attempted to speak with patient's [facility] service technicianLiz. Left voicemail requesting call back. No other SW needs at this time. SW remains available if any other needs or concerns arise. [facility] 03-06-2023 Note Formatting of this n ote might be different from the original. SW follow up. Patient has been discharged. Notified patient's daughter in law, Renetta of this. She plans to be at hospital to moss picker patient at 1 pm. States that she is OK with patient discharging home today and resuming HHC services. Renetta also states that her Namenda dose was lowered and she would like either a hard script or the script to be sent to her home pharmacy; [facility]. Updated RN of this. Attempted to speak with patient's [facility] service technicianLiz. Left voicemail requesting call back. No other SW needs at this time. SW remains available if any other needs or concerns arise. [facility] 03-06-2023 History of Presen t illness Narrative Images from the original note were not included. PHYSICAL THERAPY [facility] Treatment Note Name/MRN: Albina Brown ([id number]) Date of : 1940 Age: 82 y.o. Room/Bed: B1-153/B1153 B Visit #: 2 out of 4 visits Discharge Recommendation: Home with Home PT and Home with Assist PRN Equipment Needed: none Prior Level of Function ADL Assistance: Independent Ambulation Assistance: Independent Transfer Assistance: Independent Assessment Pt is making slow progress toward PT goals but continues to be limited by decreased overall balance and decreased safety awareness. Pt completed bed mobility with SBA, transfers with SBA, and ambulation with FWW with CGA. Pt would benefit from continued skilled PT to address current deficts and improve safety. Recommend [facility] PT and assist PRN. Subjective Patient agreeable to therapy. Observation: no lines present Pain: Pt denies any current pain. Medical Precautions: No active isolations Proper PPE donned/doffed in accordance with facility standards. Fall Risk: Jim Fall Risk Score: 85 (High Risk) Precautions/Restrictions: N/A Overall Cognitive Status: Exceptions - Safety judgement: decreased awareness of need for assistance and decreased awareness of need for safety - Problem solving: assistance required to generate solutions, assistance required to identify errors made, and decreased awareness of errors - Insights: decreased awareness of deficits Family/Caregiver Present: none Objective Ambulation Ambulation 1 Assistive device(s) used: front wheeled walker Assist level: Contact Guard Distance (ft): 115' x1 Quality of gait: reciprocal stepping, shuffling, slow delmer, decreased toe clearance, decreased stride length. CGA provided to monitor stability and safety with FWW. Pt required cues for appropriate proximity to FWW and safety during directional changes. Edu regarding benefits of use of FWW to decrease risk for falls. No LOB. Transfers/Mobility Sit to stand: SBA Stand to sit: SBA From EOB to FWW. Pt demos proper hand placement and good eccentric control. SBA for safety however no LOB or unsteadiness noted. Device(s) used: front wheeled walker Bed Mobility Supine to sit: SBA Sit to supine: SBA With HOB slightly elevated and use of bed rail. Verbal cues for proper sequencing. Increased time required to perform without physical assist. Pt denied dizziness with positional changes. Plan Continue acute PT per plan of care. Safety/Education Safety Safety Devices in place: All fall risk precautions in place, call light within reach, left in bed, bed alarm in place, gait belt, and patient at risk for falls Restraints: No Education Education Given To: patient Education Provided: PT Role, PT Goals, Gait Training, Plan of Care, and Equipment Education Method: Verbal Barriers to Learning: None Education Outcome: Verbalized Understanding, Demonstrated Understanding, and Continued Education Needed Outcome Measures AM-PAC AM-PAC Inpatient Mobility Raw Score (No Stairs) : 19 Goals Patient Stated Goal: Get back home. Encounter Problems Encounter Problems (Active) Mobility Patient will ambulate 150 feet with SBA and no assistive device in order to improve safety and independence with mobility. (Progressing) Start: 03/01/23 Expected End: 03/08/23 Patient will ascend and descend 5 stairs with one railing and CGA in order to safely negotiate home. (Not Addressed) Start: 03/01/23 Expected End: 03/08/23 Transfers Patient will complete functional transfer with no assistive device with modified independence in order to prepare for ambulation. (Progressing) Start: 03/01/23 Expected End: 03/08/23 Therapy Time Individual Co-treatment Time In 0834 Time Out 0853 Minutes 19 Timed Code Treatment Minutes: 19 Minutes (x1 gait) Mayr Bunch PTA Images from the original note were not included. Hospitalist Progress Note 03/05/[phone]: Please secure chat me for patient care issues. [phone]: Please secure chat [facility] night Hospitalist for any issues. Subjective: Admit Date: 02/27/2023 PCP: MADYSON COLLINS DO Room#: B1-153/B1-153 B Interval History: Patient is lying on the bed, she is more alert and interactive answering my questions appropriately. Denies any abdominal pain nausea or vomitings No other significant overnight issues. Adult diet Regular @[id number]@ 24HR INTAKE/OUTPUT: Intake/Output Summary (Last 24 hours) at 03/05/2023 1725 Last data filed at 03/04/2023 1858 Gross per 24 hour Intake -- Output 3 ml Net -3 ml Past Medical History: Past Medical History: Diagnosis Date Acid reflux Anxiety Breast cancer (HCC) Hyperlipidemia LABS: CBC: Recent Labs 03/03/231203/04/2335803/05/23457 WBC 7.3 8.4 6.5 RBC 3.78* 4.01 3.98 HGB 11.5* 12.1 11.9 HCT 34.2* 36.6 36.0 MCV 90.6 91.3 90.3 RDW 13.0 12.9 13.1 PLT 165 174 170 BMP: Recent Labs 03/03/231203/04/2335803/05/23457 NA 136 136 136 K 3.9 4.2 4.3 CL 108* 108* 109* CO2 26 22 25 BUN 16 20* 19* CREATININE 0.61 0.62 0.69 GLUCOSE 92 105* 96 CALCIUM 8.3* 8.2* 8.6 ANIONGAP 2* 6 2* LIVER PROFILE:No results for input(s): "AST", "ALT", "BILITOT", "ALKPHOS", "PROT" in the last 72 hours. No lab exists for component: LABALBU PT/INR: No results for input(s): "PROTIME", "INR" in the last 72 hours. CARDIAC ENZYMES: No results for input(s): "TROPONINI" in the last 72 hours. Procalcitonin: No results found for: "PROCAL" COVID-19 PCR: No results for input(s): "COVID19" in the last 72 hours. Objective: Vitals: BP 139/76 (BP Location: Right arm, Patient Position: Lying) Pulse 57 Temp 36 C (96.8 F) (Temporal) Resp 18 Ht 5' 4" (1.626 m) Wt 161 lb 13.1 oz (73.4 kg) SpO2 96% BMI 27.78 kg/m Pulse Ox: SpO2 Av.5 % Min: 95 % Max: 96 % Physical Exam General appearance: No apparent distress, appears stated age and cooperative with exam, frail elderly female in NAD, AAOx2 Respiratory: CTA BL, Cardiovascular: Regular rate and rhythm with no murmur Abdomen: Soft, non-tender, non-distended Skin: Skin color, texture, turgor normal. No rashes or lesions. Distal pulses intact in BL LE. No edema in BL LE. Neurologic: grossly non-focal. Medications: aspirin, 81 mg, Oral, Daily citalopram, 40 mg, Oral, Daily enoxaparin, 40 mg, SubCUTAneous, Daily influenza, 0.5 mL, IntraMUSCular, Prior to discharge melatonin, 3 mg, Oral, Nightly memantine, 5 mg, Oral, BID [START ON 03/10/2023] memantine, 5 mg, Oral, Daily senna-docusate sodium, 2 tablet, Oral, BID tamoxifen, 20 mg, Oral, Daily Assessment Acute encephalopathy. Progressive dementia. Failure to thrive. Dehydration Urinary tract infection Hypertension Hyperlipidemia. History of: Breast cancer-on tamoxifen. Depression/anxiety Gastroesophageal reflux disease. Medical Decision Making Patient's confusion significantly better, mental status close to baseline. Answering my questions appropriately. Finished antibiotic course for urinary tract infection. Geriatrics evaluated the patient-diagnosed with likely Alzheimer's disease. Poor IADL/ADLs in the setting of her dementia and depression. Continuing Namenda 21 mg daily. Oral intake improved. Discontinued IV fluids. Encouraged p.o. intake, continue protein supplements. PT OT evaluation-recommending home with home health care.. -am labs, replace lytes prn -increase activity -DVT prophylaxis: [] Lovenox [] Heparin [] SCDs [x] Encourage ambulation [] Already on Anticoagulation Anticipated Discharge - Date -medically stable for discharge - Location - Home with Home Health Care - Pending the following -awaiting arrangements for home health/home PT Total time spent (which include face to face and non face to face encounters) : 25 minutes Toxic drug monitoring/narrow therapeutic index drug monitoring : # Drug name : # Route administered : # Method of monitoring : Extended Emergency Contact Information Primary Emergency Contact: GaloRenetta Relation: Child Secondary Emergency Contact: Ted Domínguez Relation: Child Antoni Diaz MD Division of Hospitalist Medicine NotesFirst PAGER: Epic chat Images from the original note were not included. PHYSICAL THERAPY [facility] Name/MRN: Albina Brown ([id number]) Date: 03/05/2023 Attempted to see pt. Pt lying in bed and arouses easily. Encouraged pt to participate with therapy with pt declining stating "I'm not up to it." Pt non specific as to why other than feeling "blough". Again tried to encourage movement in hopes it would make her feel better but unable to convince pt to try. No treatment rendered. Kaley Toledo, CASING TRIMMER Nutrition Assessment Type and Reason for Visit: Reassess Nutrition Recommendations/Plan: Continue regular diet. Intakes seemingly improved. Continue Ensure Plus BID. Changed flavor today per pt request. Ensure Plus High Protein provides 350 kcals, 13g protein per serving. Receiving assistance with meal tray orders. Please continue to document %PO intakes. RD will continue to follow and monitor overall nutritional status. Malnutrition Assessment: Malnutrition Status: At risk for malnutrition (Comment) (decreased PO) Context: Social/Environmental Circumstances Findings of the 6 clinical characteristics of malnutrition: Energy Intake: 50% or less estimated energy requirements for 1 month or longer (Pt's a month ago.) Weight Loss: (3% wt loss in 6 mo) Body Fat Loss: Unable to assess Muscle Mass Loss: Unable to assess Fluid Accumulation: No significant fluid accumulation Drug Safety Scientist Strength: Not Performed Nutrition Assessment: Pt remains admitted with acute encephalopathy, progressive dementia, FTT, dehydration, UTI, HTN, and HLD. Confusion is significantly better and mentation close to baseline. cardiac cath lab technologist reached out to RD earlier today asking to change the ONS flavor to chocolate per pt preference. She is receiving assistance with meal tray ordering. Planning to d/c home with [facility]. Pt reports good appetite at time of RD visit today- forgetful that she had ordered her meals already. MIss Estimated Daily Nutrient Needs: Energy Requirements Based On: Kcal/kg Weight Used for Energy Requirements: Point Weight for Energy Calculation (kg): 55 kg Total Energy Requirements (kcals/day): 7086-7033 kcals (25-30 kcals/kg) Weight Used for Protein Requirements: Point Weight in Kg Used for Protein Requirements: 55 kg Estimated Total Protein (g/day): 55-66 (1-1.2g/kg) Estimated Daily Total Fluid (ml/day): 1401-1931 ml/day or per MD Nutrition Related Findings: Missing teeth; Humberto 18; BLE weakness; +BS; last BM 02/28 Wound Type: None Current Nutrition Therapies: Adult diet Regular Current Oral Intake Average Meal Intake: Unable to assess (Limited data- pt reports good intakes currently) Average Supplements Intake: Unable to assess Anthropometric Measures: Height: 162.6 cm (5' 4") Current Body Weight: 73 kg (161 lb) Weight Source: Bed Scale Admission Body Weight: 73 kg (161 lb) Usual Body Weight: 75.3 kg (166 lb) (08/28/22) % Weight Change (Calculated): -3 Point Body Weight (lbs) (Calculated): 120 lbs Point Body Weight (Kg) (Calculated): 55 kg % Point Body Weight (Calculated): 134.2 % BMI (kg/m2) (Calculated): 27.6 Weight Adjustment For: No Adjustment BMI Categories: Overweight (BMI 25.0-29.9) Nutrition Diagnosis: Inadequate oral intake, Inadequate protein intake related to psychological cause or life stress as evidenced by poor intake prior to admission Nutrition Interventions: Nutrition Education/Counseling: No recommendation at this time Coordination of Nutrition Care: Continue to monitor while inpatient Plan of Care discussed with: pt Goals: Previous Goal Met: Progressing toward Goal(s) Goals: PO intake 75% or greater, prior to discharge Nutrition Monitoring and Evaluation: Behavioral-Environmental Outcomes: None Identified Food/Nutrient Intake Outcomes: Diet Advancement/Tolerance, Food and Nutrient Intake, Supplement Intake Physical Signs/Symptoms Outcomes: Biochemical Data, Chewing or Swallowing, Constipation, GI Status, Nutrition Focused Physical Findings, Skin, Weight Discharge Planning: Continue Oral Nutrition Supplement Jill Whitley RD Contact: [phone] [facility] Geriatric Medicine Inpatient Consult Service Admission Date: 02/27/2023 Assessment Principal Problem: Failure to thrive in adult Active Problems: Dementia (HCC) At risk for delirium Depression At risk for malnutrition Debility Plan Dementia -likely Alzheimer's Disease -needs 24/7 care at this time due to poor IADL/ADL care in setting of dementia and depression -Namenda currently being weaned due to concern it wasn't helping and could have been impacting her mood -Namenda to 5 mg BID x7 days (equivalent to the XR 14 mg dose), then 5 mg daily x 7 days. Then stop. Monitor for cognitive changes -Recommend follow up at [facility] ([facility]) for geriatric cognitive evaluation when in usual state of health. Depression -Mood doing better today. May be improving with 24/7 supervision in hospital -continue celexa 40 mg daily (the dose was increased again to 40 mg on 02/18, so may take a few weeks to get the full effect of the medication) -psychiatry suggested remeron if desired. -I did let daughter in law Renetta know psychiatry's recommendation and gave them the name "remeron". Since mood is improving, will not start it now, but they can consider talking with her PCP about it in the future if mood declines again At Risk for Malnutrition -Dietitian following. -Started on Ensure. Debility -Contributing factors include: physical deconditioning, dementia, recent hospitalization -Physical Therapy and Occupational Therapy evaluations Follow-up: will follow with you Subjective Chief Complaint: altered mental status, poor PO intake Geriatrics consulted for altered mental status HPI- The patient is known to me. 82 y.o. year-old female with past medical history of dementia, acid reflux, anxiety, hyperlipidemia, breast cancer (on Tamoxifen, follows with Dr Carlson) who presented to hospital with altered mental status. Concern for dementia +/- depression. Reviewed older adult social work specialist note - APS called expressing concerning about the patient at home because she was wandering and didn't have 24/7 care. Reviewed today's primary team progress note - more alert and interactive today. Finishing antibiotic course for UTI She has not been agitated and has not used the prn seroquel or zyprexa that psychiatry ordered Interval History: Patient reports she is feeling well today. She is in good spirits. Reports her appetite is good and she has been sleeping OK. She does admit to feeling "down in the dumps" earlier but not this week. She does off-handedly mention her in the present (he over a month ago) Review of Systems Respiratory: Negative for shortness of breath. Cardiovascular: Negative for leg swelling. Gastrointestinal: Negative for abdominal pain, constipation, diarrhea and nausea. Musculoskeletal: Negative for arthralgias and myalgias. Objective BP (!) 107/43 (BP Location: Right arm, Patient Position: Lying) Pulse 58 Temp 36.9 C (98.5 F) (Temporal) Resp 12 Ht 5' 4" (1.626 m) Wt 161 lb 13.1 oz (73.4 kg) SpO2 95% BMI 27.78 kg/m No intake or output data in the 24 hours ending 03/04/23 1651 Wt Readings from Last 3 Encounters: 02/27/23 161 lb 13.1 oz (73.4 kg) 08/28/22 166 lb 12.8 oz (75.7 kg) 02/24/22 165 lb 14.4 oz (75.3 kg) Current Facility-Administered Medications: acetaminophen (Tylenol) tablet 650 mg, 650 mg, Oral, q6h PRN OR acetaminophen (Tylenol) suppository 650 mg, 650 mg, Rectal, q6h PRN, Angelito Matson MD aspirin chewable tablet 81 mg, 81 mg, Oral, Daily, Angelito Matson MD, 81 mg at 03/04/23817 citalopram (CeleXA) tablet 40 mg, 40 mg, Oral, Daily, Regina Yu MD, 40 mg at 03/04/23817 enoxaparin (Lovenox) syringe 40 mg, 40 mg, SubCUTAneous, Daily, Angelito Matson MD, 40 mg at 03/04/23817 Influenza Vac A&B SA Adj quadrivalent (Fluad) vaccine 0.5 mL, 0.5 mL, IntraMUSCular, Prior to discharge, Angelito Matson MD melatonin tablet 3 mg, 3 mg, Oral, Nightly, Mine Guillaume APRN - DROSSER, 3 mg at 03/03/232112 memantine (Namenda) tablet 5 mg, 5 mg, Oral, BID, Regina Yu MD, 5 mg at 03/04/23817 [START ON 03/10/2023] memantine (Namenda) tablet 5 mg, 5 mg, Oral, Daily, Regina Yu MD QUEtiapine (SEROquel) tablet 12.5 mg, 12.5 mg, Oral, TID PRN OR OLANZapine (ZyPREXA) 2.5 mg in sterile water 0.5 mL injection, 2.5 mg, IntraMUSCular, TID PRN, Mary Major DO ondansetron ODT (Zofran-ODT) disintegrating tablet 4 mg, 4 mg, Oral, q8h PRN, 4 mg at 02/28/23 1257 OR ondansetron (Zofran) injection 4 mg, 4 mg, IntraVENous, q6h PRN, Angelito Matson MD polyethylene glycol (PEG) 3350 (Miralax) packet 17 g, 17 g, Oral, Daily PRN, Angelito Matson MD senna-docusate sodium (Senokot-S) 8.6-50 MG tablet 2 tablet, 2 tablet, Oral, BID, Mayank Lynn DO, 2 tablet at 03/04/23 0819 tamoxifen (Nolvadex) chemo tablet 20 mg, 20 mg, Oral, Daily, Angelito Matson MD, 20 mg at 03/04/23 0819 Physical Exam Constitutional: General: She is not in acute distress. Appearance: She is not ill-appearing. HENT: Head: Normocephalic and atraumatic. Cardiovascular: Rate and Rhythm: Normal rate and regular rhythm. Heart sounds: No murmur heard. No friction rub. No gallop. Pulmonary: Effort: Pulmonary effort is normal. Breath sounds: Normal breath sounds. No decreased breath sounds, wheezing, rhonchi or rales. Comments: Auscultated anteriorly only Abdominal: General: There is no distension. Palpations: Abdomen is soft. Tenderness: There is no abdominal tenderness. There is no guarding or rebound. Musculoskeletal: Right lower leg: No edema. Left lower leg: No edema. Neurological: Mental Status: She is alert. Comments: Oriented to person and place. Disoriented to month/year Psychiatric: Attention and Perception: Attention normal. Mood and Affect: Mood and affect normal. Behavior: Behavior is cooperative. Cognition and Memory: Cognition is impaired. Memory is impaired. Comments: Smiling and social today Labs and Imaging: Recent Results (from the past 24 hour(s)) CBC auto differential Collection Time: 03/04/23 3:59 AM Result Value Ref Range Auto WBC 8.4 3.6 - 10.7 10*3/uL RBC 4.01 3.8 - 5.20 10*6/uL Hemoglobin 12.1 11.7 - 16.0 g/dL Hematocrit 36.6 35.0 - 47.0 % MCV 91.3 80.0 - 98.0 fL MCH 30.3 26.0 - 34.0 pg MCHC 33.1 32.0 - 36.0 % RDW 12.9 11.5 - 14.5 % Platelets 174 140 - 440 10*3/uL MPV 8.0 7.4 - 12.4 fL nRBC 0.0 0.0 - 2.0 /100 WBCs Neutrophils Relative 65.6 40.0 - 80.0 % Lymphocytes Relative 23.5 20.0 - 40.0 % Monocytes Relative 8.9 2.0 - 10.0 % Eosinophils Relative 1.3 1.0 - 6.0 % Basophils Relative 0.7 0.0 - 2.0 % Neutrophils Absolute 5.5 1.8 - 7.0 10*3/uL Lymphocytes Absolute 2.0 1.0 - 4.3 10*3/uL Monocytes Absolute 0.7 0.0 - 0.8 10*3/uL Eosinophils Absolute 0.1 0.0 - 0.5 10*3/uL Basophils Absolute 0.1 0.0 - 0.2 10*3/uL Basic metabolic panel Collection Time: 03/04/23 3:59 AM Result Value Ref Range SODIUM 136 135 - 145 mmol/L POTASSIUM 4.2 3.5 - 5.1 mmol/L CHLORIDE 108 (H) 98 - 107 mmol/L CARBON DIOXIDE 22 22 - 30 mmol/L UREA NITROGEN 20 (H) 7 - 17 mg/dL CREATININE 0.62 0.52 - 1.04 mg/dL GLUCOSE 105 (H) 70 - 100 mg/dL CALCIUM 8.2 (L) 8.4 - 10.4 mg/dL ANION GAP 6 3 - 13 mmol/L eGFR 89.6 >60.0 mL/min/1.73m*2 Lab Results Component Value Date TSH 1.803 02/27/2023 Lab Results Component Value Date [id number] 911 02/04/2023 Lab Results Component Value Date VITD25 48 02/04/2023 Images from the original note were not included. OCCUPATIONAL THERAPY [facility] Treatment Note Name/MRN: Albina Brown ([id number]) Date of : 1940 Age: 82 y.o. Room/Bed: [facility]153/[facility]153 B Visit #: 1 out of 7 visits Discharge Recommendation: Home with Home OT, Home with 10/11 Assist, and if pt does not have 24 hr SUP available, may benefit from SNF for safety Equipment Needed: none Prior Level of Function ADL Assistance: Independent Ambulation Assistance: Independent Transfer Assistance: Independent Assessment Pt tolerated session fairly well. Pt completed bed mobility and LB dressing with SBA. Pt required CGA for long household distance functional mobility without assistive device. Pt is still below baseline and is a fall risk. Pt would benefit from continued OT to improve activity tolerance, balance, and strength needed for improved occupational performance. Pt is recommended for [facility] OT and 24 hr assist, if not available may benefit from SNF for safety Subjective Pt supine in bed, agreeable with encouragement. Per RN, pt okay to see Pain: Pt denies any current pain. Medical Precautions: No active isolations Proper PPE donned/doffed in accordance with facility standards. Fall Risk: Jim Fall Risk Score: 85 (High Risk) Precautions/Restrictions: N/A Family/Caregiver Present: none Objective ADLs LE Dressing: SBA Pt able to thread briefs and pants while seated EOB with SBA. Pt able to manage over hips in standing with SBA. Bed Mobility Supine to sit: SBA Sit to supine: SBA Scooting: SBA Pt completed all aspects of bed mobility with HOB elevated, use of bed rails, and SBA. Pt required increased time to complete. Transfers/Mobility Sit to stand: Contact Guard Stand to sit: Contact Guard, Pt completed x2 STS from EOB without device and CGA. Pt with no overt LoB but with some unsteadiness, able to self correct Sitting balance: Modified Independent Standing balance: SBA, Contact Guard, SBA for static stand, CGA for dynamic Functional mobility: Contact Guard Pt completed long household distance functional mobility without device with CGA. Pt required increased time to complete but with no LoB or SOB Device(s) used: hospital bed Cognition - WFL Some impaired safety awareness and insight to deficits Plan Continue acute OT per plan of care. Safety/Education Safety Safety Devices in place: All fall risk precautions in place, call light within reach, left in bed, bed alarm in place, gait belt, patient at risk for falls, and nurse notified Restraints: No Education Education Given To: patient Education Provided: OT Role, Plan of Care, Precautions, ADL Adaptive Strategies, Transfer Training, Equipment, Fall Prevention Education, and Discharge Recommendations Education Method: Verbal, Demonstration, and Teach Back Barriers to Learning: None Education Outcome: Verbalized Understanding, Demonstrated Understanding, and Continued Education Needed AM-PAC AM-PAC Inpatient Daily Activity Raw Score: 19 ADL Inpatient CMS G-Code Modifier: CK Goals Patient Stated Goal: to go home Encounter Problems Encounter Problems (Active) Balance Patient will tolerate standing with SUP for 3 minutes to allow for increased participation in functional activities (Progressing) Start: 03/01/23 Expected End: 03/08/23 Dressings Lower Extremities Patient will dress lower body with SUP (Progressing) Start: 03/01/23 Expected End: 03/08/23 Mobility Patient will demonstrate functional ambulation with SUP (Progressing) Start: 03/01/23 Expected End: 03/08/23 Toileting Patient will complete toileting tasks at standard toilet with supervision. (Not Addressed) Start: 03/01/23 Expected End: 03/08/23 Transfers Patient will complete functional transfer with no assistive device with supervision in order to prepare for ambulation. (Progressing) Start: 03/01/23 Expected End: 03/08/23 Therapy Time Individual Co-treatment Time In 1406 Time Out 1424 Minutes 18 Timed Code Treatment Minutes: 18 Minutes (1 Ther ACt) CADE Mccrary Images from the original note were not included. Hospitalist Progress Note 03/04/2023 [id number]: Please secure chat me for patient care issues. : Please secure chat [facility] Hospitalist for any issues. Subjective: Admit Date: 02/27/2023 PCP: MADYSON COLLINS DO Room#: B1-153/B1-153 B Interval History: Patient is lying on the bed, she is more alert and interactive answering my questions appropriately. Denies any abdominal pain nausea or vomitings No other significant overnight issues. Adult diet Regular @[id number]@ 24HR INTAKE/OUTPUT: No intake or output data in the 24 hours ending 03/04/23 1332 Past Medical History: Past Medical History: Diagnosis Date Acid reflux Anxiety Breast cancer (HCC) Hyperlipidemia LABS: CBC: Recent Labs 03/02/23 0501 03/03/23 0013 03/04/23 0359 WBC 6.7 7.3 8.4 RBC 3.74* 3.78* 4.01 HGB 11.2* 11.5* 12.1 HCT 33.7* 34.2* 36.6 MCV 90.1 90.6 91.3 RDW 13.2 13.0 12.9 PLT 174 165 174 BMP: Recent Labs 03/02/23 0501 03/03/23 0013 03/04/23 0359 NA 137 136 136 K 4.1 3.9 4.2 CL 109* 108* 108* CO2 24 26 22 BUN 15 16 20* CREATININE 0.63 0.61 0.62 GLUCOSE 94 92 105* CALCIUM 8.3* 8.3* 8.2* ANIONGAP 3 2* 6 LIVER PROFILE:No results for input(s): "AST", "ALT", "BILITOT", "ALKPHOS", "PROT" in the last 72 hours. No lab exists for component: LABALBU PT/INR: No results for input(s): "PROTIME", "INR" in the last 72 hours. CARDIAC ENZYMES: No results for input(s): "TROPONINI" in the last 72 hours. Procalcitonin: No results found for: "PROCAL" COVID-19 PCR: No results for input(s): "COVID19" in the last 72 hours. Objective: Vitals: BP (!) 107/43 (BP Location: Right arm, Patient Position: Lying) Pulse 58 Temp 36.9 C (98.5 F) (Temporal) Resp 12 Ht 5' 4" (1.626 m) Wt 161 lb 13.1 oz (73.4 kg) SpO2 95% BMI 27.78 kg/m Pulse Ox: SpO2 Av.5 % Min: 95 % Max: 96 % Physical Exam General appearance: No apparent distress, appears stated age and cooperative with exam, frail elderly female in NAD, AAOx2 Respiratory: CTA BL, Cardiovascular: Regular rate and rhythm with no murmur Abdomen: Soft, non-tender, non-distended Skin: Skin color, texture, turgor normal. No rashes or lesions. Distal pulses intact in BL LE. No edema in BL LE. Neurologic: grossly non-focal. Medications: aspirin, 81 mg, Oral, Daily citalopram, 40 mg, Oral, Daily enoxaparin, 40 mg, SubCUTAneous, Daily influenza, 0.5 mL, IntraMUSCular, Prior to discharge melatonin, 3 mg, Oral, Nightly memantine, 5 mg, Oral, BID [START ON 03/10/2023] memantine, 5 mg, Oral, Daily senna-docusate sodium, 2 tablet, Oral, BID tamoxifen, 20 mg, Oral, Daily Assessment Acute encephalopathy. Progressive dementia. Failure to thrive. Dehydration Urinary tract infection Hypertension Hyperlipidemia. History of: Breast cancer-on tamoxifen. Depression/anxiety Gastroesophageal reflux disease. Medical Decision Making Patient's confusion significantly better, mental status close to baseline. Answering my questions appropriately. Finished antibiotic course for urinary tract infection. Geriatrics evaluated the patient-diagnosed with likely Alzheimer's disease. Poor IADL/ADLs in the setting of her dementia and depression. Continuing Namenda 21 mg daily. Oral intake improved. Discontinued IV fluids. Encouraged p.o. intake, continue protein supplements. PT OT evaluation-recommending home with home health care.. -am labs, replace lytes prn -increase activity -DVT prophylaxis: [] Lovenox [] Heparin [] SCDs [x] Encourage ambulation [] Already on Anticoagulation Anticipated Discharge - Date -medically stable for discharge - Location - Home with Home Health Care - Pending the following -awaiting arrangements for home health/home PT Total time spent (which include face to face and non face to face encounters) : 25 minutes Toxic drug monitoring/narrow therapeutic index drug monitoring : # Drug name : # Route administered : # Method of monitoring : Extended Emergency Contact Information Primary Emergency Contact: Renetta Rosenthal Relation: Child Secondary Emergency Contact: Ted Domínguez Relation: Child Antoni Diaz MD Division of Hospitalist Medicine [facility] PAGER: Epic chat Images from the original note were not included. Hospitalist Progress Note 03/03/[id number]: Please secure chat me for patient care issues. [phone]: Please secure chat [place] [facility] Hospitalist for any issues. Subjective: Admit Date: 02/27/2023 PCP: MADYSON COLLINS DO Room#: B1-153/B1-153 B Interval History: Patient is lying on the bed, answering some of my questions appropriately. Denies any abdominal pain nausea or vomiting. No other significant overnight issues. Adult diet Regular @[id number]@ 24HR INTAKE/OUTPUT: No intake or output data in the 24 hours ending 03/03/23 1640 Past Medical History: Past Medical History: Diagnosis Date Acid reflux Anxiety Breast cancer (HCC) Hyperlipidemia LABS: CBC: Recent Labs 03/01/2342003/02/23 0501 03/03/23 0013 WBC 6.5 6.7 7.3 RBC 3.88 3.74* 3.78* HGB 11.9 11.2* 11.5* HCT 35.3 33.7* 34.2* MCV 90.8 90.1 90.6 RDW 12.9 13.2 13.0 PLT 154 174 165 BMP: Recent Labs 03/01/2342003/02/23 0501 03/03/23 0013 NA 136 137 136 K 3.4* 4.1 3.9 CL 109* 109* 108* CO2 23 24 26 BUN 13 15 16 CREATININE 0.53 0.63 0.61 GLUCOSE 94 94 92 CALCIUM 8.5 8.3* 8.3* ANIONGAP 4 3 2* LIVER PROFILE:No results for input(s): "AST", "ALT", "BILITOT", "ALKPHOS", "PROT" in the last 72 hours. No lab exists for component: LABALBU PT/INR: No results for input(s): "PROTIME", "INR" in the last 72 hours. CARDIAC ENZYMES: No results for input(s): "TROPONINI" in the last 72 hours. Procalcitonin: No results found for: "PROCAL" COVID-19 PCR: No results for input(s): "COVID19" in the last 72 hours. Objective: Vitals: BP 131/71 (BP Location: Left arm, Patient Position: Lying) Pulse 63 Temp 36.7 C (98 F) (Temporal) Resp 17 Ht 5' 4" (1.626 m) Wt 161 lb 13.1 oz (73.4 kg) SpO2 94% BMI 27.78 kg/m Pulse Ox: SpO2 Av.5 % Min: 93 % Max: 94 % Physical Exam General appearance: No apparent distress, appears stated age and cooperative with exam, frail elderly female in NAD, AAOx2 Respiratory: CTA BL, Cardiovascular: Regular rate and rhythm with no murmur Abdomen: Soft, non-tender, non-distended Skin: Skin color, texture, turgor normal. No rashes or lesions. Distal pulses intact in BL LE. No edema in BL LE. Neurologic: grossly non-focal. Medications: aspirin, 81 mg, Oral, Daily citalopram, 40 mg, Oral, Daily enoxaparin, 40 mg, SubCUTAneous, Daily influenza, 0.5 mL, IntraMUSCular, Prior to discharge melatonin, 3 mg, Oral, Nightly memantine, 5 mg, Oral, BID [START ON 03/10/2023] memantine, 5 mg, Oral, Daily senna-docusate sodium, 2 tablet, Oral, BID tamoxifen, 20 mg, Oral, Daily Assessment Acute encephalopathy. Progressive dementia. Failure to thrive. Dehydration Urinary tract infection Hypertension Hyperlipidemia. History of: Breast cancer-on tamoxifen. Depression/anxiety Gastroesophageal reflux disease. Medical Decision Making Patient's confusion significantly better, mental status close to baseline. Answering my questions appropriately. Finished antibiotic course for urinary tract infection. Geriatrics evaluated the patient-diagnosed with likely Alzheimer's disease. Poor IADL/ADLs in the setting of her dementia and depression. Continuing Namenda 21 mg daily. Oral intake improved. Discontinued IV fluids. Encouraged p.o. intake, continue protein supplements. PT OT evaluation-recommending home with home health care.. -am labs, replace lytes prn -increase activity -DVT prophylaxis: [] Lovenox [] Heparin [] SCDs [x] Encourage ambulation [] Already on Anticoagulation Anticipated Discharge - Date -1 to 2days - Location - Home with Home Health Care - Pending the following -clinical improvement Total time spent (which include face to face and non face to face encounters) : 25 minutes Toxic drug monitoring/narrow therapeutic index drug monitoring : # Drug name : # Route administered : # Method of monitoring : Extended Emergency Contact Information Primary Emergency Contact: Renetta Rosenthal Relation: Child Secondary Emergency Contact: Ted Domínguez Relation: Child Antoni Diaz MD Division of Hospitalist Medicine [facility] PAGER: [place] chat Images from the original note were not included. OCCUPATIONAL THERAPY [facility]'s Name/MRN: Albina Brown ([id number]) Date: 03/03/2023 Chart reviewed for OT tx. Attempted pt at 9:22 and pt reporting she was too tired and asked OT to return in a few hours. Attempted a second time at 11:08 and pt continuing to decline despite encouragement. Will continue to follow and re attempt as able. Shyla Snow OT [facility] Geriatric Medicine Inpatient Consult Service Admission Date: 02/27/2023 Assessment Principal Problem: Failure to thrive in adult Active Problems: Dementia (HCC) At risk for delirium Depression At risk for malnutrition Debility Plan Dementia -likely Alzheimer's Disease -needs 24/7 care at this time due to poor IADL/ADL care in setting of dementia and depression -She takes namenda XR 21 mg daily at home. It was started in December. Family reported no benefit. -Due to concern that Namenda may be impacting mood, currently weaning off of this medication- Will decrease namenda to 5 mg BID x7 days (equivalent to the XR 14 mg dose), then 5 mg daily x 7 days. Then stop. Monitor for cognitive changes. -Recommend follow up at [facility]) for geriatric cognitive evaluation when in usual state of health. Depression -Suspect depression is contributing to apathy, poor PO intake, and decline in ADLs at home. -Patient recently had a major life change (spouse in early January) -Family had increased the celexa back to previous home dose of 40 mg daily on 02/18. -qtc is within normal limits. Ok to continue the celexa 40 mg daily -Psychiatry consulted- appreciate recommendations- per note, consider addition of Remeron 15mg at bedtime At Risk for Malnutrition -Dietitian following. -Started on Ensure. -continue to offer foods of choice and assess for need for assistance at mealtimes (e.g. set-up) Debility -Contributing factors include: physical deconditioning, dementia, recent hospitalization - Continue Physical Therapy and Occupational Therapy as able - PT currently recommending home with home PT - As above, needs higher level of care due to decreased ability to perform IADLs/ADLs independently Follow-up: 1-2 days as needed Subjective Chief Complaint: altered mental status, poor PO intake Geriatrics consulted for altered mental status HPI- The patient is new to me but seen by the Geriatric Inpatient Consult team. 82 y.o. year-old female admitted to acute care from home for altered mental status. Diagnosed with UTI, started on Rocephin- last dose on 03/02, also given IVF for dehydration. Interval History: Remains on general medical/surgical floor . No reported overnight events, nursing reports patient was confused this morning- not able to say why she was in the hospital. Patient reports she is doing well today, no complaints, has not yet had her breakfast. She is confused during conversation- asking if her is sitting out on the couch. She does know that she is currently at the hospital at time of visit. Seen by PT. Contact guard assist. Ambulated 60ft, 100ft with FWW. Recommending Home with Home PT and Home with Assist PRN Review of Systems Constitutional: Negative for activity change and appetite change. Respiratory: Negative for cough and shortness of breath. Cardiovascular: Negative for chest pain. Gastrointestinal: Negative for abdominal pain and constipation. Genitourinary: Negative for difficulty urinating. Musculoskeletal: Negative for arthralgias and gait problem. Neurological: Negative for dizziness and headaches. Psychiatric/Behavioral: Positive for confusion. Negative for sleep disturbance. Objective BP 131/71 (BP Location: Left arm, Patient Position: Lying) Pulse 63 Temp 36.7 C (98 F) (Temporal) Resp 17 Ht 5' 4" (1.626 m) Wt 161 lb 13.1 oz (73.4 kg) SpO2 94% BMI 27.78 kg/m No intake or output data in the 24 hours ending 03/03/23 0906 Wt Readings from Last 3 Encounters: 02/27/23 161 lb 13.1 oz (73.4 kg) 08/28/22 166 lb 12.8 oz (75.7 kg) 02/24/22 165 lb 14.4 oz (75.3 kg) Current Facility-Administered Medications: acetaminophen (Tylenol) tablet 650 mg, 650 mg, Oral, q6h PRN OR acetaminophen (Tylenol) suppository 650 mg, 650 mg, Rectal, q6h PRN, Angelito Matson MD aspirin chewable tablet 81 mg, 81 mg, Oral, Daily, Angelito Matson MD, 81 mg at 03/03/23 0804 citalopram (CeleXA) tablet 40 mg, 40 mg, Oral, Daily, Regina Yu MD, 40 mg at 03/03/23 08 enoxaparin (Lovenox) syringe 40 mg, 40 mg, SubCUTAneous, Daily, Angelito Matson MD, 40 mg at 03/03/23 08 Influenza Vac A&B SA Adj quadrivalent (Fluad) vaccine 0.5 mL, 0.5 mL, IntraMUSCular, Prior to discharge, Angelito Matson MD melatonin tablet 3 mg, 3 mg, Oral, Nightly PRN, Regina Yu MD memantine (Namenda) tablet 5 mg, 5 mg, Oral, BID, Regina Yu MD, 5 mg at 03/03/23 0804 [START ON 03/10/2023] memantine (Namenda) tablet 5 mg, 5 mg, Oral, Daily, Regina Yu MD QUEtiapine (SEROquel) tablet 12.5 mg, 12.5 mg, Oral, TID PRN OR OLANZapine (ZyPREXA) 2.5 mg in sterile water 0.5 mL injection, 2.5 mg, IntraMUSCular, TID PRN, Mary Major DO ondansetron ODT (Zofran-ODT) disintegrating tablet 4 mg, 4 mg, Oral, q8h PRN, 4 mg at 02/28/23 1257 OR ondansetron (Zofran) injection 4 mg, 4 mg, IntraVENous, q6h PRN, Angelito Matson MD polyethylene glycol (PEG) 3350 (Miralax) packet 17 g, 17 g, Oral, Daily PRN, Angelito Matson MD senna-docusate sodium (Senokot-S) 8.6-50 MG tablet 2 tablet, 2 tablet, Oral, BID, Mayank Lynn DO, 2 tablet at 03/03/23 0804 tamoxifen (Nolvadex) chemo tablet 20 mg, 20 mg, Oral, Daily, Angelito Matson MD, 20 mg at 03/03/23 0836 Physical Exam Constitutional: General: She is not in acute distress. HENT: Head: Normocephalic and atraumatic. Right Ear: External ear normal. Left Ear: External ear normal. Mouth/Throat: Mouth: Mucous membranes are moist. Pharynx: Oropharynx is clear. Eyes: General: Right eye: No discharge. Left eye: No discharge. Conjunctiva/sclera: Conjunctivae normal. Cardiovascular: Rate and Rhythm: Normal rate and regular rhythm. Heart sounds: Normal heart sounds. Pulmonary: Effort: Pulmonary effort is normal. No respiratory distress. Breath sounds: Normal breath sounds. No wheezing, rhonchi or rales. Abdominal: General: Bowel sounds are normal. There is no distension. Palpations: Abdomen is soft. Tenderness: There is no abdominal tenderness. There is no guarding. Musculoskeletal: Right lower leg: No edema. Left lower leg: No edema. Neurological: Mental Status: She is alert. She is disoriented. Sensory: No sensory deficit. Comments: Confused Alert and oriented to self and place- does not know date- states that it is June Psychiatric: Mood and Affect: Mood normal. Behavior: Behavior normal. Labs and Imaging: Recent Results (from the past 24 hour(s)) CBC auto differential Collection Time: 03/03/23 12:13 AM Result Value Ref Range Auto WBC 7.3 3.6 - 10.7 10*3/uL RBC 3.78 (L) 3.8 - 5.20 10*6/uL Hemoglobin 11.5 (L) 11.7 - 16.0 g/dL Hematocrit 34.2 (L) 35.0 - 47.0 % MCV 90.6 80.0 - 98.0 fL MCH 30.5 26.0 - 34.0 pg MCHC 33.7 32.0 - 36.0 % RDW 13.0 11.5 - 14.5 % Platelets 165 140 - 440 10*3/uL MPV 7.7 7.4 - 12.4 fL nRBC 0.1 0.0 - 2.0 /100 WBCs Neutrophils Relative 54.5 40.0 - 80.0 % Lymphocytes Relative 34.7 20.0 - 40.0 % Monocytes Relative 8.5 2.0 - 10.0 % Eosinophils Relative 1.7 1.0 - 6.0 % Basophils Relative 0.6 0.0 - 2.0 % Neutrophils Absolute 4.0 1.8 - 7.0 10*3/uL Lymphocytes Absolute 2.5 1.0 - 4.3 10*3/uL Monocytes Absolute 0.6 0.0 - 0.8 10*3/uL Eosinophils Absolute 0.1 0.0 - 0.5 10*3/uL Basophils Absolute 0.0 0.0 - 0.2 10*3/uL Basic metabolic panel Collection Time: 03/03/23 12:13 AM Result Value Ref Range SODIUM 136 135 - 145 mmol/L POTASSIUM 3.9 3.5 - 5.1 mmol/L CHLORIDE 108 (H) 98 - 107 mmol/L CARBON DIOXIDE 26 22 - 30 mmol/L UREA NITROGEN 16 7 - 17 mg/dL CREATININE 0.61 0.52 - 1.04 mg/dL GLUCOSE 92 70 - 100 mg/dL CALCIUM 8.3 (L) 8.4 - 10.4 mg/dL ANION GAP 2 (L) 3 - 13 mmol/L eGFR 89.9 >60.0 mL/min/1.73m*2 Lab Results Component Value Date TSH 1.803 02/27/2023 Lab Results Component Value Date [id number] 911 02/04/2023 Lab Results Component Value Date VITD25 48 02/04/2023 Reviewed: allergies, previous encounters, social history, active problem lists, medications, and labs Images from the original note were not included. PHYSICAL THERAPY [facility] Treatment Note Name/MRN: Albina Brown ([id number]) Date of : 1940 Age: 82 y.o. Room/Bed: [facility]153/[facility]153 B Visit #: 1 out of 4 visits Discharge Recommendation: Home with Home PT and Home with Assist PRN Equipment Needed: none Prior Level of Function ADL Assistance: Independent Ambulation Assistance: Independent Transfer Assistance: Independent Assessment Pt presents with slight increased functional mobility but does much better with FWW rather than no device. Pt demonstrates decreased overall balance this admission. Pt is SBA for bed mobility, min A x 1 for transfers and ambulation. Pt is expected to benefit from continued therapy in order to increase overall independence. Subjective Pt is agreeable to therapy. Observation: Per RN okay to see. Pain: Pt denies any current pain. Medical Precautions: No active isolations Proper PPE donned/doffed in accordance with facility standards. Fall Risk: Jim Fall Risk Score: 85 (High Risk) Precautions/Restrictions: N/A Overall Cognitive Status: Exceptions Overall Orientation Status: Unable to Assess Family/Caregiver Present: none Objective Ambulation Ambulation 1 Assistive device(s) used: none and front wheeled walker Assist level: Min Assist Distance (ft): 60ft x 1 (without), 100ft x 1 with FWW Quality of gait: demonstrates a short reciprocal gait pattern, decreased step height and length, lateral swaying and posterior lean, unsteadiness throughout but no major LOB noted Transfers/Mobility Sit to stand: Contact Guard Stand to sit: Contact Guard Pt demonstrates proper hand placement unsteadiness with ascend and grabbing onto bed for stability Device(s) used: none Bed Mobility Supine to sit: SBA Sit to supine: SBA Denied dizziness. Pt HOB elevated and use of bed rails. Extended time to complete. Plan Continue acute PT per plan of care. Safety/Education Safety Safety Devices in place: All fall risk precautions in place, call light within reach, left in bed, bed alarm in place, gait belt, patient at risk for falls, and nurse notified Restraints: No Education Education Given To: patient Education Provided: PT Role, PT Goals, Gait Training, Precautions, Transfer Training, and Equipment Education Method: Verbal and Demonstration Barriers to Learning: None Education Outcome: Verbalized Understanding and Demonstrated Understanding Outcome Measures AM-PAC AM-PAC Inpatient Mobility Raw Score (No Stairs) : 19 Goals Patient Stated Goal: Get back home. Encounter Problems Encounter Problems (Active) Mobility Patient will ambulate 150 feet with SBA and no assistive device in order to improve safety and independence with mobility. (Progressing) Start: 03/01/23 Expected End: 03/08/23 Patient will ascend and descend 5 stairs with one railing and CGA in order to safely negotiate home. (Progressing) Start: 03/01/23 Expected End: 03/08/23 Transfers Patient will complete functional transfer with no assistive device with modified independence in order to prepare for ambulation. (Progressing) Start: 03/01/23 Expected End: 03/08/23 Therapy Time Individual Co-treatment Time In 1414 Time Out 1427 Minutes 13 Timed Code Treatment Minutes: 10 Minutes (1 gait) Marisabel Suarez CASING TRIMMER Images from the original note were not included. Hospitalist Progress Note 03/02/2023 [id number]: Please page me ([phone]) for patient care issues. [phone]: Please page [facility] Hospitalist for any issues. Subjective: Admit Date: 02/27/2023 PCP: MADYSON COLLINS DO Room#: B1-153/B1-153 B Interval History: No overnight issues. Denies chest pain, sob, abdominal pain,, vomiting, diarrhea, constipation, fevers, or chills. Endorses feeling better today. Appetite improving. No nausea or vomiting today. Adult diet Regular 24HR INTAKE/OUTPUT: No intake or output data in the 24 hours ending 03/02/23 113 Past Medical History: Past Medical History: Diagnosis Date Acid reflux Anxiety Breast cancer (HCC) Hyperlipidemia LABS: CBC: Recent Labs 02/27/23205703/01/2342003/02/23 0501 WBC 8.4 6.5 6.7 RBC 4.38 3.88 3.74* HGB 13.2 11.9 11.2* HCT 40.0 35.3 33.7* MCV 91.2 90.8 90.1 RDW 13.2 12.9 13.2 PLT 210 154 174 BMP: Recent Labs 02/27/23205703/01/23 0421 03/02/23 0501 NA 137 136 137 K 3.7 3.4* 4.1 CL 106 109* 109* CO2 24 24 BUN 19* 13 15 CREATININE 0.69 0.53 0.63 GLUCOSE 99 94 94 CALCIUM 9.0 8.5 8.3* ANIONGAP 7 4 3 LIVER PROFILE: Recent Labs 02/27/232057 AST 46 ALT 30 BILITOT 0.5 ALKPHOS 58 PROT 7.1 PT/INR: No results for input(s): "PROTIME", "INR" in the last 72 hours. CARDIAC ENZYMES: Recent Labs 02/27/23205702/28/23443 TROPONINI <0.012 <0.012 Procalcitonin: No results found for: "PROCAL" COVID-19 PCR: No results for input(s): "COVID19" in the last 72 hours. Objective: Vitals: BP 124/64 Pulse 68 Temp 36.1 C (97 F) (Temporal) Resp 15 Ht 5' 4" (1.626 m) Wt 161 lb 13.1 oz (73.4 kg) SpO2 95% BMI 27.78 kg/m Pulse Ox: SpO2 Av % Min: 93 % Max: 95 % Supplemental O2: General appearance: No apparent distress, appears stated age and cooperative with exam, frail elderly female in NAD, AAOx2 Respiratory: CTA BL, Cardiovascular: Regular rate and rhythm with no murmur Abdomen: Soft, non-tender, non-distended Skin: Skin color, texture, turgor normal. No rashes or lesions. Distal pulses intact in BL LE. No edema in BL LE. Neurologic: grossly non-focal. Medications: aspirin, 81 mg, Oral, Daily citalopram, 20 mg, Oral, Daily enoxaparin, 40 mg, SubCUTAneous, Daily influenza, 0.5 mL, IntraMUSCular, Prior to discharge senna-docusate sodium, 2 tablet, Oral, BID tamoxifen, 20 mg, Oral, Daily Assessment Dementia, progressive Failure to thrive Dehydration, poor oral intake CT head negative Geriatrics on consult PT/OT eval and treat IVF given in the ED Nutritional supplementation TID UTI UC reviewed Rocephin IV, completed course HLD Hx of Breast cancer tamoxifen Anxiety/depression Celexa GERD Intermittent nausea PRN zofran Medical Decision Making 02/28/23: patient admitted for failure to thrive, in setting of decreased activity at home, poor oral intake. Dementia that has been progressive. Increased confusion. Recent admission for rapid progressive dementia. Patient refusing PT/OT at home. Found to have UTI, treating with IV abx. Labs otherwise largely unremarkable. Geriatrics on consult. CT head negative. Encourage PO intake. IVF given in the ED. Home meds resumed otherwise. 03/01/23: PT/OT recommending home with [facility]. Labs and vitals stable. Continue IV abx for UTI. Geriatrics eval pending. 03/02/23: patient admitted for failure to thrive, sleeping 20 hours per day, poor oral intake. Hx of dementia that is progressive. Treated for UTI, completed abx course. Geriatrics eval pending, consult acknowledged on 02/28. Labs and vitals otherwise stable. OT recommending possible SNF? -am labs, replace lytes prn -increase activity -resume home medications as indicated -DVT prophylaxis: [x] Lovenox [] Heparin [] SCDs [x] Encourage ambulation [] Already on Anticoagulation Anticipated Discharge - Date - 03/03/23 - Location - Home vs SNF - Pending the following - PT/OT, improvement in weakness and nausea, , geriatrics eval Toxic drug monitoring/narrow therapeutic index drug monitoring : # Drug name : # Route administered : # Method of monitoring : Extended Emergency Contact Information Primary Emergency Contact: Renetta Rosenthal Relation: Child Secondary Emergency Contact: Ted Domínguez Relation: Child Mayank Lynn DO Division of Hospitalist Medicine Inpatient Medical Services/[facility] PAGER: Epic chat Images from the original note were not included. Hospitalist Progress Note 03/01/2023 [phone]: Please page id ([phone]) for patient care issues. [phone]: Please page [facility] night Hospitalist for any issues. Subjective: Admit Date: 02/27/2023 PCP: MADYSON COLLINS DO Room#: B1-153/B1-153 B Interval History: No overnight issues. Denies chest pain, sob, abdominal pain,, vomiting, diarrhea, constipation, fevers, or chills. Endorses feeling better today. Appetite improving. No nausea or vomiting today. Adult diet Regular 24HR INTAKE/OUTPUT: No intake or output data in the 24 hours ending 03/01/23 1231 Past Medical History: Past Medical History: Diagnosis Date Acid reflux Anxiety Breast cancer (HCC) Hyperlipidemia LABS: CBC: Recent Labs 02/27/23205703/01/23420 WBC 8.4 6.5 RBC 4.38 3.88 HGB 13.2 11.9 HCT 40.0 35.3 MCV 91.2 90.8 RDW 13.2 12.9 PLT 210 154 BMP: Recent Labs 02/27/23205703/01/23 0421 NA 137 136 K 3.7 3.4* CL 106 109* CO2 24 23 BUN 19* 13 CREATININE 0.69 0.53 GLUCOSE 99 94 CALCIUM 9.0 8.5 ANIONGAP 7 4 LIVER PROFILE: Recent Labs 02/27/232057 AST 46 ALT 30 BILITOT 0.5 ALKPHOS 58 PROT 7.1 PT/INR: No results for input(s): "PROTIME", "INR" in the last 72 hours. CARDIAC ENZYMES: Recent Labs 02/27/23205702/28/23443 TROPONINI <0.012 <0.012 Procalcitonin: No results found for: "PROCAL" COVID-19 PCR: No results for input(s): "COVID19" in the last 72 hours. Objective: Vitals: BP (!) 147/71 Pulse 66 Temp 36.2 C (97.2 F) (Temporal) Resp 17 Ht 5' 4" (1.626 m) Wt 161 lb 13.1 oz (73.4 kg) SpO2 96% BMI 27.78 kg/m Pulse Ox: SpO2 Av % Min: 96 % Max: 96 % Supplemental O2: General appearance: No apparent distress, appears stated age and cooperative with exam, frail elderly female in NAD, AAOx2 Respiratory: CTA BL, no wheezing. Cardiovascular: Regular rate and rhythm with no murmur Abdomen: Soft, non-tender, non-distended Skin: Skin color, texture, turgor normal. No rashes or lesions. Distal pulses intact in BL LE. No edema in BL LE. Neurologic: grossly non-focal. Medications: aspirin, 81 mg, Oral, Daily cefTRIAXone, 1,000 mg, IntraVENous, q24h citalopram, 20 mg, Oral, Daily enoxaparin, 40 mg, SubCUTAneous, Daily influenza, 0.5 mL, IntraMUSCular, Prior to discharge tamoxifen, 20 mg, Oral, Daily Assessment Dementia, progressive Failure to thrive Dehydration, poor oral intake CT head negative Geriatrics on consult PT/OT eval and treat IVF given in the ED Nutritional supplementation TID UTI UC pending Rocephin IV HLD Hx of Breast cancer tamoxifen Anxiety/depression Celexa GERD Intermittent nausea PRN zofran Medical Decision Making 02/28/23: patient admitted for failure to thrive, in setting of decreased activity at home, poor oral intake. Dementia that has been progressive. Increased confusion. Recent admission for rapid progressive dementia. Patient refusing PT/OT at home. Found to have UTI, treating with IV abx. Labs otherwise largely unremarkable. Geriatrics on consult. CT head negative. Encourage PO intake. IVF given in the ED. Home meds resumed otherwise. 03/01/23: PT/OT recommending home with [facility]. Labs and vitals stable. Continue IV abx for UTI. Geriatrics eval pending. -am labs, replace lytes prn -increase activity -resume home medications as indicated -DVT prophylaxis: [x] Lovenox [] Heparin [] SCDs [x] Encourage ambulation [] Already on Anticoagulation Anticipated Discharge - Date - 03/02/23 - Location - Home vs SNF - Pending the following - PT/OT, improvement in weakness and nausea, , geriatrics eval Toxic drug monitoring/narrow therapeutic index drug monitoring : # Drug name : # Route administered : # Method of monitoring : Extended Emergency Contact Information Primary Emergency Contact: Renetta Rosenthal Relation: Child Secondary Emergency Contact: Ted Domínguez Relation: Child Mayank Lynn DO [facility] PAGER: Epic chat Images from the original note were not included. OCCUPATIONAL THERAPY [facility] Initial Evaluation Name/MRN: Albina Brown ([id number]) Evaluation Date: 03/01/2023 Date of : 1940 Admission Date: 02/27/2023 7:50 PM Age: 82 y.o. [facility]Bed: [facility] B Discharge Recommendation: Home with Home OT, Home with 24/7 Assist, and if pt does not have 24 hr SUP available, may benefit from SNF for safety Equipment Needed: none Assessment IMPRESSION: Pt admitted 02/27 with lethargy. Pt found to have UTI and failure to thrive. Pt is independent with ADLs and functional mobility without device at baseline. At time of eval, pt is SBA-CGA with ADLs and CGA with functional mobility without device. Pt is limited by cognition, safety, weakness, balance deficits, and fatigue. Pt is functioning below baseline and would benefit from skilled OT services to maximize safety and independence with ADLs and functional mobility. Rec HHC and 24 hr SUP. If 24 hr SUP is not available, pt would benefit from SNF for safety. Performance Deficits /Impairments: Decreased Functional Mobility, Decreased ADL status, Decreased Strength, Decreased Safety Awareness, Decreased Cognition, Decreased Endurance, Decreased Balance, and Decreased High Level IADLs Prognosis: Good Decision Making: Medium Complexity Subjective Pt supine in bed at arrival. Pt ok to see per RN. No lines or tubes. Pt was pleasant and agreeable to OT eval. Pain: Pt denies any current pain. Past Medical History: Past Medical History: Diagnosis Date Acid reflux Anxiety Breast cancer (HCC) Hyperlipidemia Past Surgical History: Past Surgical History: Procedure Laterality Date BREAST BIOPSY BREAST LUMPECTOMY 11/21/2019 CATARACT EXTRACTION COLONOSCOPY TUBAL LIGATION WISDOM TOOTH EXTRACTION Admission Diagnosis: Patient Active Problem List Diagnosis Date Noted Failure to thrive in adult 02/27/2023 Altered mental status 02/05/2023 Dementia (HCC) 02/04/2023 At risk for delirium 02/04/2023 Anxiety 02/04/2023 Malignant neoplasm of lower-outer quadrant of left breast of female, estrogen receptor positive (HCC) 12/15/2019 Medical Precautions: No active isolations Proper PPE donned/doffed in accordance with facility standards. Fall Risk: Jim Fall Risk Score: 85 (High Risk) Precautions/Restrictions: N/A Family/Caregiver Present: none Overall Cognitive Status: Exceptions - Attention span: attends with cues to redirect - Memory: decreased short term memory - Safety judgement: decreased awareness of need for assistance and decreased awareness of need for safety - Problem solving: decreased awareness of errors - Insights: decreased awareness of deficits Overall Orientation Status: Oriented to Place, Oriented to Person, Disoriented to Situation, and Disoriented to Time Social/Functional History Patient admitted from home. Lives With: Spouse Type of Home: mobile home Home Layout: Single Level Home Home Access: Stairs to Enter without Rails (# of stairs: 4) Bathroom Shower/Tub: Walk in Shower Toilet: Standard Home Equipment: none Homemaking Responsibilities: Independent Receives Help From: None Active Transitional Studies Instructor: Yes Prior Level of Function ADL Assistance: Independent Ambulation Assistance: Independent Transfer Assistance: Independent Objective ADLs Grooming: SBA LE Dressing: Contact Guard Toileting: Contact Guard Pt incontinent of urine. Pt able to thread BLE into clean briefs with SBA. Pt completed pericare with SBA in sitting. Pt required CGA for managing briefs up to hips d/t mild balance deficits. Pt required SBA and verbal cues for problem solving and recall of task with oral hygiene and hand hygiene standing at sink. After completing ADLs and ambulation, pt reporting she wanted to complete oral hygiene, required cues to recall having already completed. Upper Extremity Assessment AROM: WFL PROM: WFL Strength: WFL mild weakness Vision: wears glasses at all times and and are being used during the eval Hearing: normal Bed Mobility Supine to sit: SBA Sit to supine: SBA Scooting: SBA Pt completed with use of bed rails and HOB elevated. Denies dizziness. SBA for safety and verbal cues for attending to task. Transfers/Functional Mobility Sit to stand: Contact Guard Stand to sit: Contact Guard Toilet: Contact Guard Functional mobility: Contact Guard Pt standing from EOB without device with CGA. Pt ambulated to/from bathroom and functional household distance in hallway with CGA for balance d /t mild unsteadiness. No true LOB noted. Pt required CGA for elevation and controlled descent at toilet. Device(s) used: none AM-PAC AM-PAC Inpatient Daily Activity Raw Score: 19 ADL Inpatient CMS G-Code Modifier: CK Plan Pt would benefit from skilled acute OT services to address Strengthening, Balance Training, Functional Mobility Training, Endurance Training, Cognitive Reorientation, Pain Management, Safety Education and Training, Patient/Caregiver Training, Equipment Evaluation/Education, Positioning, Self-Care/ADL Training, Home Management Training, and Cognitive/Perceptual Training. Frequency: 7 visits during current hospital admission or until additional recommendations are made Barriers: Confusion, Cognitive deficit, Limited safety awareness, Limited insight into deficits, and Decreased endurance Prognosis: good Safety/Education Safety Safety Devices in place: All fall risk precautions in place, call light within reach, left in bed, bed alarm in place, gait belt, patient at risk for falls, and nurse notified Restraints: N/A Education Education Given To: patient Education Provided: OT Role, Plan of Care, ADL Adaptive Strategies, Transfer Training, Equipment, Discharge Recommendations, and Benefits of Increasing Activity Education Method: Verbal Barriers to Learning: Cognition Education Outcome: Verbalized Understanding and Continued Education Needed Goals Patient Stated Goal: to go home Encounter Problems Encounter Problems (Active) Balance Patient will tolerate standing with SUP for 3 minutes to allow for increased participation in functional activities Start: 03/01/23 Expected End: 03/08/23 Dressings Lower Extremities Patient will dress lower body with SUP Start: 03/01/23 Expected End: 03/08/23 Mobility Patient will demonstrate functional ambulation with SUP Start: 03/01/23 Expected End: 03/08/23 Toileting Patient will complete toileting tasks at standard toilet with supervision. Start: 03/01/23 Expected End: 03/08/23 Transfers Patient will complete functional transfer with no assistive device with supervision in order to prepare for ambulation. Start: 03/01/23 Expected End: 03/08/23 Therapy Time Individual Co-treatment Time In 0926 Time Out 0943 Minutes 17 Shyla Snow OT Patient's Occupational Therapy Plan of Care supervision is transferred to a [facility] Therapy Services Occupational Therapist. Goals and/or treatment plan was established in collaboration with patient/family/other representatives. Images from the original note were not included. PHYSICAL THERAPY [facility] Initial Evaluation Name/MRN: Albina Brown ([id number]) Evaluation Date: 03/01/2023 Date of : 1940 Admission Date: 02/27/2023 7:50 PM Age: 82 y.o. Room/Bed: [facility]153/B1153 B Discharge Recommendation: Home with Home PT and Home with Assist PRN Equipment Needed: none Assessment IMPRESSION: Albina presents with impaired cognition, posture, strength, and balance with associated functional limitations to transfers, ambulation, and stairs requiring up to minimum assistance. She is a fall risk and would benefit from acute PT to address her functional limitations. Diagnosis: Failure to thrive in adult. Prognosis: good Performance Deficits /Impairments: Decreased Functional Mobility, Decreased Strength, Decreased Cognition, Decreased Balance, and Decreased Posture Decision Making: Medium Complexity Subjective Albina was agreeable to PT evaluation. Pain: Pt denies any current pain. Past Medical History: Past Medical History: Diagnosis Date Acid reflux Anxiety Breast cancer (HCC) Hyperlipidemia Past Surgical History: Past Surgical History: Procedure Laterality Date BREAST BIOPSY BREAST LUMPECTOMY 11/21/2019 CATARACT EXTRACTION COLONOSCOPY TUBAL LIGATION WISDOM TOOTH EXTRACTION Admission Diagnosis: Patient Active Problem List Diagnosis Date Noted Failure to thrive in adult 02/27/2023 Altered mental status 02/05/2023 Dementia (HCC) 02/04/2023 At risk for delirium 02/04/2023 Anxiety 02/04/2023 Malignant neoplasm of lower-outer quadrant of left breast of female, estrogen receptor positive (HCC) 12/15/2019 Medical Precautions: No active isolations Proper PPE donned/doffed in accordance with facility standards. Fall Risk: Jim Fall Risk Score: 85 (High Risk) Precautions/Restrictions: N/A Family/Caregiver Present: none Overall Cognitive Status: Exceptions - Safety judgement: decreased awareness of need for assistance - Insights: decreased awareness of deficits - Sequencing: requires cues for some Overall Orientation Status: Oriented to Place and Oriented to Person Vision: wears glasses at all times and and are being used during the eval Hearing: normal Social/Functional History Patient admitted from home. Lives With: Spouse Type of Home: mobile home Home Layout: Single Level Home Home Access: Stairs to Enter without Rails (# of stairs: 4) Bathroom Shower/Tub: Walk in Shower Toilet: Standard Home Equipment: none Homemaking Responsibilities: Independent Receives Help From: None Active Transitional Studies Instructor: Yes Prior Level of Function ADL Assistance: Independent Ambulation Assistance: Independent Transfer Assistance: Independent Objective Lower Extremity Assessment AROM: WFL PROM: WFL Strength: Exceptions: 4/5 Bed Mobility: Supine to sit: SBA Sit to supine: SBA Scooting: SBA Transfers Sit to stand: SBA Stand to sit: SBA Ambulation Ambulation 1 Assistive device(s) used: none Assist level: Min Assist Distance (ft): 75 Quality of gait: slow delmer, postural sway Balance: Good - Posture: fair Sitting - Static: Modified Independent Sitting - Dynamic: Modified Independent Standing - Static: Modified Independent Standing - Dynamic: Modified Independent Stairs Stairs 1 Assistive device(s) used: none Assist level: Hand Held Assist # of steps: 5 Rails: right Additional factors: non-reciprocal going up Outcome Measures AM-PAC How much HELP from another person do you currently need Turning from your back to your side while in a flat bed without using bedrails?: None Moving from lying on your back to sitting on the side of a flat bed without using bedrails?: None Moving to and from a bed to a chair (including a wheelchair)?: None Standing up from a chair using your arms (wheelchair or bedside chair)?: None Walking in a hospital room?: A Little Stair climbing assessed?: Yes Climbing 3-5 steps with a railing?+: A Little AM-PAC Inpatient Mobility Raw Score : 22 AM-PAC Inpatient Mobility Raw Score (No Stairs) : 19 -[facility] Plan Pt would benefit from skilled acute PT services to address Strengthening, Balance Training, Functional Mobility Training, Gait Training, Stair Training, Cognitive Reorientation, and Safety Education and Training. Frequency: 4 visits during current hospital admission or until additional recommendations are made Barriers: Cognitive deficit Safety/Education Safety Safety Devices in place: call light within reach, left in bed, bed alarm in place, patient at risk for falls, and nurse notified Restraints: No Education Education Given To: patient Education Provided: PT Role, PT Goals, and Plan of Care Education Method: Verbal Barriers to Learning: Cognition Education Outcome: Verbalized Understanding Goals Patient Stated Goal: Get back home. Encounter Problems Encounter Problems (Active) Mobility Patient will ambulate 150 feet with SBA and no assistive device in order to improve safety and independence with mobility. Start: 03/01/23 Expected End: 03/08/23 Patient will ascend and descend 5 stairs with one railing and CGA in order to safely negotiate home. Start: 03/01/23 Expected End: 03/08/23 Transfers Patient will complete functional transfer with no assistive device with modified independence in order to prepare for ambulation. Start: 03/01/23 Expected End: 03/08/23 Therapy Time Individual Co-treatment Time In 0817 Time Out 0832 Minutes 15 Juan Ramon Hernandez PT Patient's Physical Therapy Plan of Care supervision is transferred to a [facility] Therapy Services Physical Therapist. Goals and/or treatment plan was established in collaboration with patient/family/other representatives. Images from the original note were not included. Hospitalist Progress Note 02/28/2023 [phone]: Please page me ([phone]) for patient care issues. [phone]: Please page [facility] Hospitalist for any issues. Subjective: Admit Date: 02/27/2023 PCP: MADYSON COLLINS DO Room#: B1-153/B1-153 B Interval History: No overnight issues. Denies chest pain, sob, abdominal pain,, vomiting, diarrhea, constipation, fevers, or chills. Endorses body aches, weakness, decreased appetite. Adult diet Regular 24HR INTAKE/OUTPUT: No intake or output data in the 24 hours ending 02/28/23 1221 Past Medical History: Past Medical History: Diagnosis Date Acid reflux Anxiety Breast cancer (HCC) Hyperlipidemia LABS: CBC: Recent Labs 02/27/232057 WBC 8.4 RBC 4.38 HGB 13.2 HCT 40.0 MCV 91.2 RDW 13.2 PLT 210 BMP: Recent Labs 02/27/232057 NA 137 K 3.7 CL 106 CO2 24 BUN 19* CREATININE 0.69 GLUCOSE 99 CALCIUM 9.0 ANIONGAP 7 LIVER PROFILE: Recent Labs 02/27/232057 AST 46 ALT 30 BILITOT 0.5 ALKPHOS 58 PROT 7.1 PT/INR: No results for input(s): "PROTIME", "INR" in the last 72 hours. CARDIAC ENZYMES: Recent Labs 02/27/23205702/28/23 0444 TROPONINI <0.012 <0.012 Procalcitonin: No results found for: "PROCAL" COVID-19 PCR: No results for input(s): "COVID19" in the last 72 hours. Objective: Vitals: BP (!) 143/81 (BP Location: Right arm, Patient Position: Lying) Pulse 74 Temp 37.2 C (99 F) (Temporal) Resp 18 Ht 5' 4" (1.626 m) Wt 161 lb 13.1 oz (73.4 kg) SpO2 98% BMI 27.78 kg/m Pulse Ox: SpO2 Av % Min: 95 % Max: 98 % Supplemental O2: General appearance: No apparent distress, appears stated age and cooperative with exam, frail elderly female in NAD, AAOx1-2 Respiratory: CTA BL Cardiovascular: Regular rate and rhythm with no murmur Abdomen: Soft, non-tender, non-distended Skin: Skin color, texture, turgor normal. No rashes or lesions. Distal pulses intact in BL LE. No edema in BL LE. Neurologic: grossly non-focal. Medications: aspirin, 81 mg, Oral, Daily cefTRIAXone, 1,000 mg, IntraVENous, q24h citalopram, 20 mg, Oral, Daily enoxaparin, 40 mg, SubCUTAneous, Daily influenza, 0.5 mL, IntraMUSCular, Prior to discharge tamoxifen, 20 mg, Oral, Daily Assessment Dementia, progressive Failure to thrive Dehydration, poor oral intake CT head negative Geriatrics on consult PT/OT eval and treat IVF given in the ED Nutritional supplementation TID UTI UC pending Rocephin IV HLD Hx of Breast cancer tamoxifen Anxiety/depression Celexa GERD Intermittent nausea PRN zofran Medical Decision Making 02/28/23: patient admitted for failure to thrive, in setting of decreased activity at home, poor oral intake. Dementia that has been progressive. Increased confusion. Recent admission for rapid progressive dementia. Patient refusing PT/OT at home. Found to have UTI, treating with IV abx. Labs otherwise largely unremarkable. Geriatrics on consult. CT head negative. Encourage PO intake. IVF given in the ED. Home meds resumed otherwise. -am labs, replace lytes prn -increase activity -resume home medications as indicated -DVT prophylaxis: [x] Lovenox [] Heparin [] SCDs [x] Encourage ambulation [] Already on Anticoagulation Anticipated Discharge - Date - 03/02/23 - Location - Home vs SNF - Pending the following - PT/OT, improvement in weakness and nausea, IVF, geriatrics eval Toxic drug monitoring/narrow therapeutic index drug monitoring : # Drug name : # Route administered : # Method of monitoring : Extended Emergency Contact Information Primary Emergency Contact: Renetta Rosenthal Relation: Child Secondary Emergency Contact: SangTed Relation: Child Mayank Lynn DO Division of Hospitalist Medicine Inpatient Medical Services/[facility] PAGER: Epic chat Nutrition Assessment Type and Reason for Visit: Initial, Consult (Poor PO) Nutrition Recommendations/Plan: Continue with Adult diet Regular Initiate Ensure Plus strawberry BID per MNT protocol. Ensure Plus provides 350 kcals and 13 g of protein per 8 oz serving. Please document pt's PO intakes via flowsheet to accurately assess PO intake adequacy. Vitamin D was checked last month and WNL. Suggest recheck with decreased PO and decreased activity for 1 mo. Monitor intakes, weights, and labs weekly. RD will follow. Malnutrition Assessment: Malnutrition Status: At risk for malnutrition (Comment) (decreased PO) Context: Social/Environmental Circumstances Findings of the 6 clinical characteristics of malnutrition: Energy Intake: 50% or less estimated energy requirements for 1 month or longer (Pt's a month ago.) Weight Loss: (3% wt loss in 6 mo) Body Fat Loss: Unable to assess Muscle Mass Loss: Unable to assess Fluid Accumulation: No significant fluid accumulation Drug Safety Scientist Strength: Not Performed Nutrition Assessment: Pt was admitted with FTT, nausea, AMS, and lethargy. Family has noticed that pt has not been eating, drinking, and sleeping for 20+ hours a day. Family has been having to force her to eat/drink prior to admission. Pt reportedly lost her a month ago. This AM, pt was pleasant, reports she has an appetite, but is a poor historian. Pt reported that Estimated Daily Nutrient Needs: Energy Requirements Based On: Kcal/kg Weight Used for Energy Requirements: Point Weight for Energy Calculation (kg): 55 kg Total Energy Requirements (kcals/day): 4127-0252 kcals (25-30 kcals/kg) Weight Used for Protein Requirements: Point Weight in Kg Used for Protein Requirements: 55 kg Estimated Total Protein (g/day): 55-66 (1-1.2g/kg) Estimated Daily Total Fluid (ml/day): 8268-8138 ml/day or per MD Nutrition Related Findings: no edema, BUN 19 Wound Type: None Current Nutrition Therapies: Adult diet Regular Current Oral Intake Average Meal Intake: (Pt had not eaten breakfast yet; decreased PO CASING TRIMMER) Average Supplements Intake: None Ordered Anthropometric Measures: Height: 162.6 cm (5' 4") Current Body Weight: 73 kg (161 lb) Weight Source: Bed Scale Admission Body Weight: 73 kg (161 lb) Usual Body Weight: 75.3 kg (166 lb) (08/28/22) % Weight Change (Calculated): -3 Point Body Weight (lbs) (Calculated): 120 lbs Point Body Weight (Kg) (Calculated): 55 kg % Point Body Weight (Calculated): 134.2 % BMI (kg/m2) (Calculated): 27.6 Weight Adjustment For: No Adjustment BMI Categories: Overweight (BMI 25.0-29.9) Nutrition Diagnosis: Inadequate oral intake, Inadequate protein intake related to psychological cause or life stress as evidenced by poor intake prior to admission Nutrition Interventions: Nutrition Education/Counseling: No recommendation at this time Coordination of Nutrition Care: Continue to monitor while inpatient Plan of Care discussed with: Patient Goals: Goals: PO intake 75% or greater, by next RD assessment Nutrition Monitoring and Evaluation: Behavioral-Environmental Outcomes: None Identified Food/Nutrient Intake Outcomes: Diet Advancement/Tolerance, Food and Nutrient Intake, Supplement Intake Physical Signs/Symptoms Outcomes: Biochemical Data, GI Status, Fluid Status or Edema, Nutrition Focused Physical Findings, Skin, Weight Discharge Planning: Continue current diet, Continue Oral Nutrition Supplement Belén Garcia RD Contact: *[phone] or via Secure Chat documented in this encounter [facility] 03-06-2023 Note Formatting of this n ote might be different from the original. SW follow up. Received a voicemail from patient's daughter in law, Renetta. She will be at hospital today at 1 pm to moss picker patient if patient is ready for discharge. Epic chat sent to Dr. Diaz about discharge today. Will follow. [facility] 03-06-2023 Note Formatting of this n ote might be different from the original. SW follow up. Received a voicemail from patient's daughter in law, Renetta. She will be at hospital today at 1 pm to moss picker patient if patient is ready for discharge. Epic chat sent to Dr. Diaz about discharge today. Will follow. [facility] 03-05-2023 Note Hospitalist Progress Note 03/05/2023 [phone]: Please secure chat id for patient care issues. [phone]: Please secure chat [facility] night Hospitalist for any issues. Subjective: Admit Date: 02/27/2023 PCP: MADYSON COLLINS DO Room#: B1-153/B1-153 B Interval History: Patient is lying on the bed, she is more alert and interactive answering my questions appropriately. Denies any abdominal pain nausea or vomitings No other significant overnight issues. Adult diet Regular @[id number]@ 24HR INTAKE/OUTPUT: Intake/Output Summary (Last 24 hours) at 03/05/2023 1725 Last data filed at 03/04/2023 1858 Gross per 24 hour Intake -- Output 3 ml Net -3 ml Past Medical History: Past Medical History: Diagnosis Date Acid reflux Anxiety Breast cancer (HCC) Hyperlipidemia LABS: CBC: Recent Labs 03/03/23 0013 03/04/239 03/05/238 WBC 7.3 8.4 6.5 RBC 3.78* 4.01 3.98 HGB 11.5* 12.1 11.9 HCT 34.2* 36.6 36.0 MCV 90.6 91.3 90.3 RDW 13.0 12.9 13.1 PLT 165 174 170 BMP: Recent Labs 03/03/23 0013 03/04/2335803/05/23457 NA 136 136 136 K 3.9 4.2 4.3 CL 108* 108* 109* CO2 26 22 25 BUN 16 20* 19* CREATININE 0.61 0.62 0.69 GLUCOSE 92 105* 96 CALCIUM 8.3* 8.2* 8.6 ANIONGAP 2* 6 2* LIVER PROFILE:No results for input(s): "AST", "ALT", "BILITOT", "ALKPHOS", "PROT" in the last 72 hours. No lab exists for component: LABALBU PT/INR: No results for input(s): "PROTIME", "INR" in the last 72 hours. CARDIAC ENZYMES: No results for input(s): "TROPONINI" in the last 72 hours. Procalcitonin: No results found for: "PROCAL" COVID-19 PCR: No results for input(s): "COVID19" in the last 72 hours. Objective: Vitals: BP 139/76 (BP Location: Right arm, Patient Position: Lying) Pulse 57 Temp 36 ?C (96.8 ?F) (Temporal) Resp 18 Ht 5' 4" (1.626 m) Wt 161 lb 13.1 oz (73.4 kg) SpO2 96% BMI 27.78 kg/m? Pulse Ox: SpO2 Av.5 % Min: 95 % Max: 96 % Physical Exam General appearance: No apparent distress, appears stated age and cooperative with exam, frail elderly female in NAD, AAOx2 Respiratory: CTA BL, Cardiovascular: Regular rate and rhythm with no murmur Abdomen: Soft, non-tender, non-distended Skin: Skin color, texture, turgor normal. No rashes or lesions. Distal pulses intact in BL LE. No edema in BL LE. Neurologic: grossly non-focal. Medications: aspirin, 81 mg, Oral, Daily citalopram, 40 mg, Oral, Daily enoxaparin, 40 mg, SubCUTAneous, Daily influenza, 0.5 mL, IntraMUSCular, Prior to discharge melatonin, 3 mg, Oral, Nightly memantine, 5 mg, Oral, BID [START ON 03/10/2023] memantine, 5 mg, Oral, Daily senna-docusate sodium, 2 tablet, Oral, BID tamoxifen, 20 mg, Oral, Daily Assessment Acute encephalopathy. Progressive dementia. Failure to thrive. Dehydration Urinary tract infection Hypertension Hyperlipidemia. History of: Breast cancer-on tamoxifen. Depression/anxiety Gastroesophageal reflux disease. Medical Decision Making Patient's confusion significantly better, mental status close to baseline. Answering my questions appropriately. Finished antibiotic course for urinary tract infection. Geriatrics evaluated the patient-diagnosed with likely Alzheimer's disease. Poor IADL/ADLs in the setting of her dementia and depression. Continuing Namenda 21 mg daily. Oral intake improved. Discontinued IV fluids. Encouraged p.o. intake, continue protein supplements. PT OT evaluation-recommending home with home health care.. -am labs, replace lytes prn -increase activity -DVT prophylaxis: [] Lovenox [] Heparin [] SCDs [x] Encourage ambulation [] Already on Anticoagulation Anticipated Discharge - Date -medically stable for discharge - Location - Home with Home Health Care - Pending the following -awaiting arrangements for home health/home PT Total time spent (which include face to face and non face to face encounters) : 25 minutes Toxic drug monitoring/narrow therapeutic index drug monitoring : # Drug name : # Route administered : # Method of monitoring : Extended Emergency Contact Information Primary Emergency Contact: Renetta Rosenthal Relation: Child Secondary Emergency Contact: Ted Domínguez Relation: Child Antoni Diaz MD Division of Hospitalist Medicine [facility] PAGER: Lydia [facility] 03-05-2023 Note Formatting of this n ote might be different from the original. SW follow up. Received a phone call from patient's [facility] waiver service technician, Clair ([phone]). She states that patient has a emergency response button with GPS, 1 day/week at the [facility], multiple meal delivery; 3 days a week, and as of today start of care of 20 hours of aide service during the week. Clair states that she received a phone call from patient's assigned APS worker, Kraig. States that APS is concerned about patient being left home alone for long periods of time. Clair states that patient often refuses PT and OT to come into home and refuses to go to [facility]. Clair states that patient refuses when she is feeling overly tired and does not want to do much. Clair states that a potential idea for patient is a respite stay and she could coordinate this if the patient and family was willing. Clair requesting to be updated when patient is planned for discharge. Spoke with [id number] via phone to discuss discharge planning. Renetta states that she is caught off guard and does not want to patient to be discharged today. States that she will need to arrange for services for the aide to be at patient's home. Renetta states that she would be interested in respite but is not sure how it would be paid for. Explained to daughter in law that respite stays can be coordinated either in the community or sometimes the hospital depending on if a chosen facility has availability. Jbctsmma-af-ebn states that [facility] is close and that would be a preferred facility. Explained to xpzngkwo-bz-eea that social work can talk with admissions to determine how respite stay is paid for and how long it lasts. Rtmkowjx-ug-rse okay with this. Spoke with Amanda in admissions at [facility]. Per admissions, respite stays are either billed through private pay, traditional Medicaid, or hospice. If family is willing to pay private pay for respite stays it can range anywhere between $260-$300 a day. Spoke with [id number]-[id number] Renetta again. Informed her of conversation with admissions at [facility] regarding respite stay. DNS states that she is not interested in respite stay at this time and will discuss this later in the future with [facility] waiver service technician Clair. Renetta states that she is not able to have any of patient's family or aids coordinated to be at home tonight. DNS states that she would prefer to have patient discharged tomorrow or through the weekend. Explained to her that patient has been ready for discharge for 2 days. Asked Renetta how she plans to provide 24-hour supervision over weekend. Renetta states that she will be at house with her as they are usually there every weekend. Renetta expresses that she is experiencing caregivers burnout. Provided her with emotional support and also notified her that a older adult social work specialist has been added to patient's home health care caseload. Renetta grateful for this. She states that she will talk with her (patient's son) and [id number] to see if and how they can coordinate someone being at the house tomorrow if discharged tomorrow. Renetta asking about APS being involved. Explained that SW is not told why APS is involved at this time. Renetta also asking if SW notified APS of safety concerns. Explained that APS called this SW and informed them that they are involved and that there was no further information provided from APS worker. Spoke with APS workerKraig and provided her with an update of above. No other SW needs at this time. social work will continue to follow. [facility] 03-05-2023 Note Formatting of this n ote might be different from the original. SW follow up. Received a phone call from patient's [facility] waiver service technician, Clair ([phone]). She states that patient has a emergency response button with GPS, 1 day/week at the [facility], multiple meal delivery; 3 days a week, and as of today start of care of 20 hours of aide service during the week. Clair states that she received a phone call from patient's assigned APS worker, Kraig. States that APS is concerned about patient being left home alone for long periods of time. Clair states that patient often refuses PT and OT to come into home and refuses to go to [facility]. Clair states that patient refuses when she is feeling overly tired and does not want to do much. Clair states that a potential idea for patient is a respite stay and she could coordinate this if the patient and family was willing. Clair requesting to be updated when patient is planned for discharge. Spoke with [id number] via phone to discuss discharge planning. Renetta states that she is caught off guard and does not want to patient to be discharged today. States that she will need to arrange for services for the aide to be at patient's home. Renetta states that she would be interested in respite but is not sure how it would be paid for. Explained to daughter in law that respite stays can be coordinated either in the community or sometimes the hospital depending on if a chosen facility has availability. Bllukgfi-bl-byw states that [facility] is close and that would be a preferred facility. Explained to djnsbdan-ye-fya that social work can talk with admissions to determine how respite stay is paid for and how long it lasts. Gzivnych-xm-inm okay with this. Spoke with Amanda in admissions at [facility]. Per admissions, respite stays are either billed through private pay, traditional Medicaid, or hospice. If family is willing to pay private pay for respite stays it can range anywhere between $260-$300 a day. Spoke with zdmfgmww-se-bvj Renetta again. Informed her of conversation with admissions at [facility] regarding respite stay. DNS states that she is not interested in respite stay at this time and will discuss this later in the future with [facility] waiver service technician Clair. Renetta states that she is not able to have any of patient's family or aids coordinated to be at home tonight. DNS states that she would prefer to have patient discharged tomorrow or through the weekend. Explained to her that patient has been ready for discharge for 2 days. Asked Renetta how she plans to provide 24-hour supervision over weekend. Renetta states that she will be at house with her as they are usually there every weekend. Renetta expresses that she is experiencing caregivers burnout. Provided her with emotional support and also notified her that a older adult social work specialist has been added to patient's home health care caseload. Renetta grateful for this. She states that she will talk with her (patient's son) and bcrksc-uz-fax to see if and how they can coordinate someone being at the house tomorrow if discharged tomorrow. Renetta asking about APS being involved. Explained that SW is not told why APS is involved at this time. Renetta also asking if SW notified APS of safety concerns. Explained that APS called this SW and informed them that they are involved and that there was no further information provided from APS worker. Spoke with APS workerKraig and provided her with an update of above. No other SW needs at this time. social work will continue to follow. [facility] 03-05-2023 Plan of care note Problem: Knowledge Deficit Goal: Patient/family/caregiver demonstrates understanding of disease process, treatment plan, medications, and discharge instructions Outcome: Progressing Problem: Potential for Compromised Skin Integrity Goal: Skin Integrity is Maintained or Improved Outcome: Progressing Goal: Nutritional status is improving Outcome: Progressing Problem: Urinary Incontinence Goal: Perineal skin integrity is maintained or improved Outcome: Progressing Problem: Problem Interventions Goal: Promote nutritional intake Outcome: Progressing The patient is Moderately Stable - Low risk of patient condition declining or worsening The patient's goals for the shift include to go home The clinical goals for the shift include to go home Over the shift, the patient did not make progress toward the following goals. Barriers to progression include . Recommendations to address these barriers include . [facility] 03-04-2023 Note Formatting of this n ote might be different from the original. Spoke with APS workerKraig. States that she was recently called from [facility] for concerns for patient at home alone and not having 24/7 care at home. APS worker asking for update on patient's discharge plan. Explained that PT/OT recommend home with home health PT/OT, however, with concerns for safety, recommendations for SNF were made. Explained that patient walked 60ft independently and 100ft with a FWW. APS worker states that she made a visit [facility] today and spoke with daughter in law. States that there was no mention to daughter in law that she would like patient placed in an ECF. Explained that SW can assist with this if the daughter in law is wanting production metal sprayer care placement. Patient is not eligible for SNF at this time. Explained to APS worker that HHC services will be restarted and there will be a older adult social work specialist added to patient's case. Also asked for APS worker to follow up with [facility] and this SW will as well. APS worker wanting for SW to contact her when patient has been discharged. Will follow. [facility] 03-04-2023 Note Formatting of this n ote might be different from the original. Spoke with APS workerKraig. States that she was recently called from [facility] for concerns for patient at home alone and not having 24/7 care at home. APS worker asking for update on patient's discharge plan. Explained that PT/OT recommend home with home health PT/OT, however, with concerns for safety, recommendations for SNF were made. Explained that patient walked 60ft independently and 100ft with a FWW. APS worker states that she made a visit [facility] today and spoke with daughter in law. States that there was no mention to daughter in law that she would like patient placed in an ECF. Explained that SW can assist with this if the daughter in law is wanting assisted care placement. Patient is not eligible for SNF at this time. Explained to APS worker that HHC services will be restarted and there will be a older adult social work specialist added to patient's case. Also asked for APS worker to follow up with [facility] and this SW will as well. APS worker wanting for SW to contact her when patient has been discharged. Will follow. [facility] 03-04-2023 Note Formatting of this n ote might be different from the original. S/W, call S/W received a call from [facility] APS worker expressing concern over patient at home. Kraig noted the patient has a diagnosis of Dementia and does not have 24/7 care at home. There is also an indication of wandering at home. I did pass this along to covering Unit S/W. [facility] at [facility] APS: [phone]. [facility] 03-04-2023 Note Formatting of this n ote might be different from the original. S/W, call S/W received a call from [employer] [facility] APS worker expressing concern over patient at home. Kraig noted the patient has a diagnosis of Dementia and does not have 24/7 care at home. There is also an indication of wandering at home. I did pass this along to covering Unit S/W. [facility] at [facility] APS: [phone]. [facility] 03-04-2023 Note Hospitalist Progress Note 03/04/2023 [phone]: Please secure chat me for patient care issues. [phone]: Please secure chat [facility] Hospitalist for any issues. Subjective: Admit Date: 02/27/2023 PCP: MADYSON COLLINS DO Room#: B1-153/B1-153 B Interval History: Patient is lying on the bed, she is more alert and interactive answering my questions appropriately. Denies any abdominal pain nausea or vomitings No other significant overnight issues. Adult diet Regular @[id number]@ 24HR INTAKE/OUTPUT: No intake or output data in the 24 hours ending 03/04/23 1332 Past Medical History: Past Medical History: Diagnosis Date Acid reflux Anxiety Breast cancer (HCC) Hyperlipidemia LABS: CBC: Recent Labs 03/02/23 0501 03/03/23 0013 03/04/23 0359 WBC 6.7 7.3 8.4 RBC 3.74* 3.78* 4.01 HGB 11.2* 11.5* 12.1 HCT 33.7* 34.2* 36.6 MCV 90.1 90.6 91.3 RDW 13.2 13.0 12.9 PLT 174 165 174 BMP: Recent Labs 03/02/23 0501 03/03/23 0013 03/04/23 0359 NA 137 136 136 K 4.1 3.9 4.2 CL 109* 108* 108* CO2 24 26 22 BUN 15 16 20* CREATININE 0.63 0.61 0.62 GLUCOSE 94 92 105* CALCIUM 8.3* 8.3* 8.2* ANIONGAP 3 2* 6 LIVER PROFILE:No results for input(s): "AST", "ALT", "BILITOT", "ALKPHOS", "PROT" in the last 72 hours. No lab exists for component: LABALBU PT/INR: No results for input(s): "PROTIME", "INR" in the last 72 hours. CARDIAC ENZYMES: No results for input(s): "TROPONINI" in the last 72 hours. Procalcitonin: No results found for: "PROCAL" COVID-19 PCR: No results for input(s): "COVID19" in the last 72 hours. Objective: Vitals: BP (!) 107/43 (BP Location: Right arm, Patient Position: Lying) Pulse 58 Temp 36.9 ?C (98.5 ?F) (Temporal) Resp 12 Ht 5' 4" (1.626 m) Wt 161 lb 13.1 oz (73.4 kg) SpO2 95% BMI 27.78 kg/m? Pulse Ox: SpO2 Av.5 % Min: 95 % Max: 96 % Physical Exam General appearance: No apparent distress, appears stated age and cooperative with exam, frail elderly female in NAD, AAOx2 Respiratory: CTA BL, Cardiovascular: Regular rate and rhythm with no murmur Abdomen: Soft, non-tender, non-distended Skin: Skin color, texture, turgor normal. No rashes or lesions. Distal pulses intact in BL LE. No edema in BL LE. Neurologic: grossly non-focal. Medications: aspirin, 81 mg, Oral, Daily citalopram, 40 mg, Oral, Daily enoxaparin, 40 mg, SubCUTAneous, Daily influenza, 0.5 mL, IntraMUSCular, Prior to discharge melatonin, 3 mg, Oral, Nightly memantine, 5 mg, Oral, BID [START ON 03/10/2023] memantine, 5 mg, Oral, Daily senna-docusate sodium, 2 tablet, Oral, BID tamoxifen, 20 mg, Oral, Daily Assessment Acute encephalopathy. Progressive dementia. Failure to thrive. Dehydration Urinary tract infection Hypertension Hyperlipidemia. History of: Breast cancer-on tamoxifen. Depression/anxiety Gastroesophageal reflux disease. Medical Decision Making Patient's confusion significantly better, mental status close to baseline. Answering my questions appropriately. Finished antibiotic course for urinary tract infection. Geriatrics evaluated the patient-diagnosed with likely Alzheimer's disease. Poor IADL/ADLs in the setting of her dementia and depression. Continuing Namenda 21 mg daily. Oral intake improved. Discontinued IV fluids. Encouraged p.o. intake, continue protein supplements. PT OT evaluation-recommending home with home health care.. -am labs, replace lytes prn -increase activity -DVT prophylaxis: [] Lovenox [] Heparin [] SCDs [x] Encourage ambulation [] Already on Anticoagulation Anticipated Discharge - Date -medically stable for discharge - Location - Home with Home Health Care - Pending the following -awaiting arrangements for home health/home PT Total time spent (which include face to face and non face to face encounters) : 25 minutes Toxic drug monitoring/narrow therapeutic index drug monitoring : # Drug name : # Route administered : # Method of monitoring : Extended Emergency Contact Information Primary Emergency Contact: Renetta Rosenthal Relation: Child Secondary Emergency Contact: Ted Domínguez Relation: Child Antoni Diaz MD Division of Hospitalist Medicine Acute care [facility] PAGER: [facility] 03-04-2023 Hospital Discharg e instructions Ana Turner LPN - 03/04/2023 10:33 AM EST Continuity of Care Form Patient Name: Albina Brown : 1940 Admit date: 02/27/2023 Discharge date: Code Status Order: Full Code Advance Directives: N Admitting Physician: Angelito Matson MD PCP: MADYSON COLLINS DO Discharging Nurse: Discharging Hospital Unit/Room#: B1-153/B1-153 B Discharging Unit Phone Number: Emergency Contact: Extended Emergency Contact Information Primary Emergency Contact: Renetta Rosenthal Relation: Child Secondary Emergency Contact: Ted Domínguez Relation: Child Past Surgical History: Past Surgical History: Procedure Laterality Date BREAST BIOPSY BREAST LUMPECTOMY 11/21/2019 CATARACT EXTRACTION COLONOSCOPY TUBAL LIGATION WISDOM TOOTH EXTRACTION Immunization History: Immunization History Administered Date(s) Administered Moderna SARS-CoV-2 Vaccination 05/10/2020, 06/07/2020 Pfizer SARS-CoV-2 Vaccination 02/15/2021 Tdap 07/26/2017 Active Problems: Medical Problems Problem List * (Principal) Failure to thrive in adult Dementia (HCC) At risk for delirium Anxiety Altered mental status Depression At risk for malnutrition Debility Malignant neoplasm of lower-outer quadrant of left breast of female, estrogen receptor positive (HCC) Isolation/Infection: No active isolations No active infections Nurse Assessment: Last Vital Signs: BP (!) 107/43 (BP Location: Right arm, Patient Position: Lying) Pulse 58 Temp 36.9 C (98.5 F) (Temporal) Resp 12 Ht 1.626 m (5' 4") Wt 73.4 kg (161 lb 13.1 oz) SpO2 95% BMI 27.78 kg/m Last documented pain score (0-10 scale): Last Weight: Wt Readings from Last 1 Encounters: 02/27/23 73.4 kg (161 lb 13.1 oz) Mental Status: {NORM Patient Mental Status:90995} IV Access: {NORM IV Access:99664} Nursing Mobility/ADLs: Walking {LUIS ADL:::"Independent"} Transfer {LUIS ADL:::"Independent"} Bathing {LUIS ADL:::"Independent"} Dressing {LUIS ADL:::"Independent"} Toileting {LUIS ADL:40594::"Independent"} Feeding {LUIS ADL:78118::"Independent"} Industrial Equipment Mechanic {LUIS ADL:13324::"Independent"} Med Delivery {yes/no:16499} Wound Care Documentation and Therapy: Elimination: Continence: Bowel: {yes/no:83288} Bladder: {yes/no:75405} Urinary Catheter: {NORM Urinary Catheter:} Colostomy/Ileostomy/Ileal Conduit: {YES / NO:} Date of Last BM: No intake or output data in the 24 hours ending 03/04/23 1032 No intake/output data recorded. Safety Concerns: {NORM Safety Concerns:10580} Impairments/Disabilities: {NORM Impairments/Disabilities:51400} Nutrition Therapy: Current Nutrition Therapy: {NORM Diet List:37561} Routes of Feeding: {routes of feedin} Liquids: {liquid consistency:88012} Daily Fluid Restriction: {daily fluid restriction:68600} Last Modified Barium Swallow with Video (Video Swallowing Test): {done not done:71364} Treatments at the Time of Hospital Discharge: Respiratory Treatments: Oxygen Therapy: {Therapy; copd oxygen:80609} Ventilator: {NORM Ventilator:90617} Rehab Therapies: {GEN THERAPY DISCIPLINE SCAL:7479981} Weight Bearing Status/Restrictions: {POD WEIGHT BEARIN} Other Medical Equipment (for information only, NOT a DME order): {Assistive Devices DME:03408} Other Treatments: Patient's personal belongings (please select all that are sent with patient): {NORM Patient Belongings:10043} RN SIGNATURE: {E-signature:47960} CASE MANAGEMENT/SOCIAL WORK SECTION Inpatient Status Date: Readmission Risk Assessment Score: @READMISSIONRISKDETAILS@ Discharging to Facility/ Agency Discharging to Facility/ Agency Name: [facility] Address: [address] [place], [place] [address] Dialysis Facility (if applicable) Name: Address: Dialysis Schedule: Phone: Fax: Geriatric Social Work Professor/Boot Trimmer signature: {E-signature:51067} PHYSICIAN SECTION Prognosis: {Rehab Prognosis:01647} Condition at Discharge: {Patient Condition:94819} Rehab Potential (if transferring to Rehab): {Rehab Prognosis:71925} Recommended Labs or Other Treatments After Discharge: Physician Certification: I certify the above information and transfer of Albina Brown is necessary for the continuing treatment of the diagnosis listed and that she requires {NORM Level of Care:52735} for {greater less than:29443} 30 days. Update Admission H&P: {NORM Changes in H&P:38549} PHYSICIAN SIGNATURE: {E-signature:47030} documented in this encounter [facility] 03-04-2023 Note Formatting of this n ote is different from the original. Start PACC Note Home Health Referral Educated patient on Home Care and services available. Patient offered choice of available HHC and agreeable to SN, PT, SW services with [facility]. Care Types: None Isolation Precautions: No active isolations Social Determinates of Health: Tobacco Use: Low Risk (02/27/2023) Patient History Smoking Tobacco Use: Never Smokeless Tobacco Use: Never Passive Exposure: Not on file Social History Substance and Sexual Activity Alcohol Use None Social History Substance and Sexual Activity Drug Use Not on file Does the patient have any financial resource strain? No Does the patient have any food insecurities? No Does the patient have any housing instabilities? No If any of the above is noted as yes - consider a SHOW HOST/HOSTESS evaluation once the patient returns home. START PATIENT REGISTRATION INFORMATION Order Information Order Signing Physician: Antoni Diaz MD Service Ordered RN ?: Yes Service Ordered PT ?: Yes Service Ordered OT ?: No Service Ordered ST ?: No Service Ordered SHOW HOST/HOSTESS?:Yes Service Ordered CONTROL ELECTRICIAN?: No Following Physician: MADYSON COLLINS DO Following Physician Overseeing Physician: MADYSON COLLINS DO (Required for Residents only) Agreeable to Follow? Yes Date/Time of Call 03/04/23 10:19 AM, Spoke with: already active Care Coordination Same Day SOC?: No Primary Care Physician: MADYSON COLLINS DO Primary Care Physician Primary Care Physician Address: [address] [place] [address] / [place] [address] Visit Instructions: N/A Service Discharge Location Type: Home with Home Health Care Service Facility Name: N/A Service Floor Facility: N/A Service Room No: N/A Demographics Patient Last Name: Kevin Patient First Name: Albina Language/Communication Barrier: n/a Service Address: [address] [place] [address] [address] Service City: [place] Service ST: [place] Service ZIP: [address] Service (home) Other phone numbers: Telephone Information: Emergency Contact: Extended Emergency Contact Information Primary Emergency Contact: Renetta Rosenthal Relation: Child Secondary Emergency Contact: Ted Domínguez Relation: Child Admission Information Admit Date: 02/27/2023 Patient status at discharge: Inpatient Admitting Diagnosis Failure to thrive in adult [R62.7] Caregiver Information Caregiver First Name: n/a Caregiver Last Name: n/a Caregiver Relationship to Patient n/a Caregiver Phone Number: n/a Caregiver Notes: N/A [employer] List No END PATIENT REGISTRATION INFORMATION Pt Home Health goal to stay home and care for myself COVID Status 1. Do you have any upper respiratory symptoms (cough, SOB, Fever)? No 2. Have you been exposed to anyone with COVID-19 Virus? No Answer only if pending or positive for COVID-19? 1. Agreeable to wear PPE at each visit? No 2. Is the hospital supplying them with PPE upon Discharge? No Start PACC Summary General Report/ Additional Comments Patient active with [facility], will add SW to case Discharge Date: 03/04/23 Referral Source-PACC: (Hospital/Unit): 1E / B1-153/B1-153 B End PACC Note [facility] 03-04-2023 Note Formatting of this n ote is different from the original. Start PACC Note Home Health Referral Educated patient on Home Care and services available. Patient offered choice of available HHC and agreeable to SN, PT, SW services with [facility] Care Types: None Isolation Precautions: No active isolations Social Determinates of Health: Tobacco Use: Low Risk (02/27/2023) Patient History Smoking Tobacco Use: Never Smokeless Tobacco Use: Never Passive Exposure: Not on file Social History Substance and Sexual Activity Alcohol Use None Social History Substance and Sexual Activity Drug Use Not on file Does the patient have any financial resource strain? No Does the patient have any food insecurities? No Does the patient have any housing instabilities? No If any of the above is noted as yes - consider a SHOW HOST/HOSTESS evaluation once the patient returns home. START PATIENT REGISTRATION INFORMATION Order Information Order Signing Physician: Antoni Diaz MD Service Ordered RN ?: Yes Service Ordered PT ?: Yes Service Ordered OT ?: No Service Ordered ST ?: No Service Ordered SHOW HOST/HOSTESS?:Yes Service Ordered CONTROL ELECTRICIAN?: No Following Physician: MADYSON COLLISN DO Following Physician Overseeing Physician: MADYSON COLLINS DO (Required for Residents only) Agreeable to Follow? Yes Date/Time of Call 03/04/23 10:19 AM, Spoke with: already active Care Coordination Same Day SOC?: No Primary Care Physician: MADYSON COLLINS DO Primary Care Physician Primary Care Physician Address: [address] [place] [address] / [place] [address] Visit Instructions: N/A Service Discharge Location Type: Home with Home Health Care Service Facility Name: N/A Service Floor Facility: N/A Service Room No: N/A Demographics Patient Last Name: Kevin Patient First Name: Albina Language/Communication Barrier: n/a Service Address: [address] [place] [address] [address] Service City: [facility] ST: [place] Service ZIP: [phone] Service (home) Other phone numbers: Telephone Information: Emergency Contact: Extended Emergency Contact Information Primary Emergency Contact: Renetta Rosenthal Relation: Child Secondary Emergency Contact: Ted Domínguez Relation: Child Admission Information Admit Date: 02/27/2023 Patient status at discharge: Inpatient Admitting Diagnosis Failure to thrive in adult [R62.7] Caregiver Information Caregiver First Name: n/a Caregiver Last Name: n/a Caregiver Relationship to Patient n/a Caregiver Phone Number: n/a Caregiver Notes: N/A [employer] List No END PATIENT REGISTRATION INFORMATION Pt Home Health goal to stay home and care for myself COVID Status 1. Do you have any upper respiratory symptoms (cough, SOB, Fever)? No 2. Have you been exposed to anyone with COVID-19 Virus? No Answer only if pending or positive for COVID-19? 1. Agreeable to wear PPE at each visit? No 2. Is the hospital supplying them with PPE upon Discharge? No Start PACC Summary General Report/ Additional Comments Patient active with [facility], will add SW to case Discharge Date: 03/04/23 Referral Source-PACC: (Hospital/Unit): 1E / B1-153/B1-153 B End PACC Note [facility] 03-04-2023 Note Start PACC Note Home Health Referral Educated patient on Home Care and services available. Patient offered choice of available HHC and agreeable to SN, PT, SW services with [facility]. Care Types: None Isolation Precautions: No active isolations Social Determinates of Health: Tobacco Use: Low Risk (02/27/2023) Patient History Smoking Tobacco Use: Never Smokeless Tobacco Use: Never Passive Exposure: Not on file Social History Substance and Sexual Activity Alcohol Use None Social History Substance and Sexual Activity Drug Use Not on file Does the patient have any financial resource strain? No Does the patient have any food insecurities? No Does the patient have any housing instabilities? No If any of the above is noted as yes - consider a SHOW HOST/HOSTESS evaluation once the patient returns home. START PATIENT REGISTRATION INFORMATION Order Information Order Signing Physician: Antoni Diaz MD Service Ordered RN ?: Yes Service Ordered PT ?: Yes Service Ordered OT ?: No Service Ordered ST ?: No Service Ordered SHOW HOST/HOSTESS?:Yes Service Ordered CONTROL ELECTRICIAN?: No Following Physician: MADYSON COLLINS DO Following Physician Overseeing Physician: MADYSON COLLINS DO (Required for Residents only) Agreeable to Follow? Yes Date/Time of Call 03/04/23 10:19 AM, Spoke with: already active Care Coordination Same Day SOC?: No Primary Care Physician: MADYSON COLLINS DO Primary Care Physician Primary Care Physician Address: [address] [place] [address] / [place] [address] Visit Instructions: N/A Service Discharge Location Type: Home with Home Health Care Service Facility Name: N/A Service Floor Facility: N/A Service Room No: N/A Demographics Patient Last Name: Kevin Patient First Name: Albina Language/Communication Barrier: n/a Service Address: [address] [address] Service City: [place] Service ST: [place] Service ZIP: [address] Service (home) Other phone numbers: Telephone Information: Emergency Contact: Extended Emergency Contact Information Primary Emergency Contact: Renetta Rosenthal Relation: Child Secondary Emergency Contact: Ted Domínguez Relation: Child Admission Information Admit Date: 02/27/2023 Patient status at discharge: Inpatient Admitting Diagnosis Failure to thrive in adult [R62.7] Caregiver Information Caregiver First Name: n/a Caregiver Last Name: n/a Caregiver Relationship to Patient n/a Caregiver Phone Number: n/a Caregiver Notes: N/A [employer] List No END PATIENT REGISTRATION INFORMATION Pt Home Health goal to stay home and care for myself COVID Status 1. Do you have any upper respiratory symptoms (cough, SOB, Fever)? No 2. Have you been exposed to anyone with COVID-19 Virus? No Answer only if pending or positive for COVID-19? 1. Agreeable to wear PPE at each visit? No 2. Is the hospital supplying them with PPE upon Discharge? No Start PACC Summary General Report/ Additional Comments Patient active with [facility], will add SW to case Discharge Date: 03/04/23 Referral Source-PACC: (Hospital/Unit): 1E / B1-153/B1-153 B End PACC Note [facility] 03-04-2023 Plan of care note Problem: Knowledge Deficit Goal: Patient/family/caregiver demonstrates understanding of disease process, treatment plan, medications, and discharge instructions Outcome: Progressing Problem: Potential for Compromised Skin Integrity Goal: Skin Integrity is Maintained or Improved Outcome: Progressing Goal: Nutritional status is improving Outcome: Progressing Problem: Urinary Incontinence Goal: Perineal skin integrity is maintained or improved Outcome: Progressing The patient is Moderately Stable - Low risk of patient condition declining or worsening The patient's goals for the shift include to go home The clinical goals for the shift include to go home Over the shift, the patient did not make progress toward the following goals. Barriers to progression include . Recommendations to address these barriers include . [facility] 03-03-2023 Note Hospitalist Progress Note 03/03/2023 [phone]: Please secure chat me for patient care issues. [phone]: Please secure chat [facility] Hospitalist for any issues. Subjective: Admit Date: 02/27/2023 PCP: MADYSON COLLINS DO Room#: B1-153/B1-153 B Interval History: Patient is lying on the bed, answering some of my questions appropriately. Denies any abdominal pain nausea or vomiting. No other significant overnight issues. Adult diet Regular @[id number]@ 24HR INTAKE/OUTPUT: No intake or output data in the 24 hours ending 03/03/23 1640 Past Medical History: Past Medical History: Diagnosis Date Acid reflux Anxiety Breast cancer (HCC) Hyperlipidemia LABS: CBC: Recent Labs 03/01/2342003/02/23 0501 03/03/23 0013 WBC 6.5 6.7 7.3 RBC 3.88 3.74* 3.78* HGB 11.9 11.2* 11.5* HCT 35.3 33.7* 34.2* MCV 90.8 90.1 90.6 RDW 12.9 13.2 13.0 PLT 154 174 165 BMP: Recent Labs 03/01/2342003/02/23 0501 03/03/23 0013 NA 136 137 136 K 3.4* 4.1 3.9 CL 109* 109* 108* CO2 23 24 26 BUN 13 15 16 CREATININE 0.53 0.63 0.61 GLUCOSE 94 94 92 CALCIUM 8.5 8.3* 8.3* ANIONGAP 4 3 2* LIVER PROFILE:No results for input(s): "AST", "ALT", "BILITOT", "ALKPHOS", "PROT" in the last 72 hours. No lab exists for component: LABALBU PT/INR: No results for input(s): "PROTIME", "INR" in the last 72 hours. CARDIAC ENZYMES: No results for input(s): "TROPONINI" in the last 72 hours. Procalcitonin: No results found for: "PROCAL" COVID-19 PCR: No results for input(s): "COVID19" in the last 72 hours. Objective: Vitals: BP 131/71 (BP Location: Left arm, Patient Position: Lying) Pulse 63 Temp 36.7 ?C (98 ?F) (Temporal) Resp 17 Ht 5' 4" (1.626 m) Wt 161 lb 13.1 oz (73.4 kg) SpO2 94% BMI 27.78 kg/m? Pulse Ox: SpO2 Av.5 % Min: 93 % Max: 94 % Physical Exam General appearance: No apparent distress, appears stated age and cooperative with exam, frail elderly female in NAD, AAOx2 Respiratory: CTA BL, Cardiovascular: Regular rate and rhythm with no murmur Abdomen: Soft, non-tender, non-distended Skin: Skin color, texture, turgor normal. No rashes or lesions. Distal pulses intact in BL LE. No edema in BL LE. Neurologic: grossly non-focal. Medications: aspirin, 81 mg, Oral, Daily citalopram, 40 mg, Oral, Daily enoxaparin, 40 mg, SubCUTAneous, Daily influenza, 0.5 mL, IntraMUSCular, Prior to discharge melatonin, 3 mg, Oral, Nightly memantine, 5 mg, Oral, BID [START ON 03/10/2023] memantine, 5 mg, Oral, Daily senna-docusate sodium, 2 tablet, Oral, BID tamoxifen, 20 mg, Oral, Daily Assessment Acute encephalopathy. Progressive dementia. Failure to thrive. Dehydration Urinary tract infection Hypertension Hyperlipidemia. History of: Breast cancer-on tamoxifen. Depression/anxiety Gastroesophageal reflux disease. Medical Decision Making Patient's confusion significantly better, mental status close to baseline. Answering my questions appropriately. Finished antibiotic course for urinary tract infection. Geriatrics evaluated the patient-diagnosed with likely Alzheimer's disease. Poor IADL/ADLs in the setting of her dementia and depression. Continuing Namenda 21 mg daily. Oral intake improved. Discontinued IV fluids. Encouraged p.o. intake, continue protein supplements. PT OT evaluation-recommending home with home health care.. -am labs, replace lytes prn -increase activity -DVT prophylaxis: [] Lovenox [] Heparin [] SCDs [x] Encourage ambulation [] Already on Anticoagulation Anticipated Discharge - Date -1 to 2days - Location - Home with Home Health Care - Pending the following -clinical improvement Total time spent (which include face to face and non face to face encounters) : 25 minutes Toxic drug monitoring/narrow therapeutic index drug monitoring : # Drug name : # Route administered : # Method of monitoring : Extended Emergency Contact Information Primary Emergency Contact: Renetta Rosenthal Relation: Child Secondary Emergency Contact: Ted Domínguez Relation: Child Antoni Diaz MD Division of Hospitalist Medicine [facility] PAGER: [facility] 03-03-2023 Note Formatting of this n ote might be different from the original. Sw consult for discharge planning. PT seen and assessed patient. Plan for patient to return home. Patient being seen and assessed by geriatrics and psychiatry as well. Patient's daughter in law, Renetta involved. Patient connected with [facility] and was approved 20 hours of [facility] services, however, the services has not started. If family wants to pursue assisted care placement, it can be arranged through [facility] or if they have a facility in mind and have the income to place from hospital, SW can assist. However, patient does not have skilled requirements to go to SNF at this time. Insurance would not approve for patient to admit to SNF as she is walking independently and with FWW. Will discuss discharge planning with covering PATRICK HEARN to follow. [facility] 03-03-2023 Note Formatting of this n ote might be different from the original. Stephanie consult for discharge planning. PT seen and assessed patient. Plan for patient to return home. Patient being seen and assessed by geriatrics and psychiatry as well. Patient's daughter in law, Renetta involved. Patient connected with [facility] and was approved 20 hours of [facility] services, however, the services has not started. If family wants to pursue assisted care placement, it can be arranged through [facility] or if they have a facility in mind and have the income to place from hospital, SW can assist. However, patient does not have skilled requirements to go to SNF at this time. Insurance would not approve for patient to admit to SNF as she is walking independently and with FWW. Will discuss discharge planning with covering [facility] SW to follow. [facility] 03-02-2023 Note Formatting of this n ote might be different from the original. Patient is currently active with [facility]. The patients current certification period will on 04/12/23. The patient is currently receiving SN, PT services through the agency. [employer] to continue to follow. [facility] 03-02-2023 Note Formatting of this n ote might be different from the original. Patient is currently active with [facility]. The patients current certification period will on 04/12/23. The patient is currently receiving SN, PT services through the agency. [employer] to continue to follow. [facility] 03-02-2023 Consult note Associated Order (s): IP CONSULT TO PSYCHIATRY Department of Psychiatry Consult Service Attending Consult Note Reason for Consult: suspected depression in setting of dementia, impacting PO intake Requesting Physician: Dr. Yu CHIEF COMPLAINT: Chief Complaint Patient presents with Nausea Altered Mental Status Lethargy Pt brought in by [facility] from home for increased lethargy, per family pt has been sleeping for 20 plus hours a day. Pt only complains of nausea with no vomiting and a headache. 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 History obtained from: patient and past medical records HISTORY OF PRESENT ILLNESS: The patient is a 82 y.o. yo female with significant past medical history of dementia, acid reflux, anxiety, hyperlipidemia, breast cancer (on Tamoxifen, follows with Dr Carlson) who arrived by ambulance after family became concerned b/c she was increasingly lethargic at home. Pt was subsequently admitted for FTT, was found to have a UTI and was Tx with IV Abx and given IVF and psychiatry was consulted. Pt reports that she is doing well. States that she is eating and sleeping well. States that she lives at home with her and denies any concerns there. Cannot state the year or where she is. Denies any concerns at this time. Collateral was obtained from the following individual: No REVIEW OF SYSTEMS: Medical Review Of Systems: Constitutional: Negative for anorexia and fatigue Psychiatric Review Of Systems: Depressed mood:Denies Sleep changes:Denies Appetite changes:Denies Anxiety/panic:Denies Suicidal ideation:Denies Homicidal ideation:Denies Access to weapons:Denies Lifetime Psychiatric Review Of Systems: Gissell or hypomania:Denies Hallucinations:Denies PAST PSYCHIATRIC HISTORY: The patient is currently receiving care for the above psychiatric illness with PCP. Previous psychiatric hospitalizations: Denies Previous suicide attempts:Denies Past psychiatric medications include: None per chart and pt cannot recall PAST MEDICAL/SURGICAL HISTORY: Past Medical History: Past Medical History: Diagnosis Date Acid reflux Anxiety Breast cancer (HCC) Hyperlipidemia Past Surgical History: Past Surgical History: Procedure Laterality Date BREAST BIOPSY BREAST LUMPECTOMY 11/21/2019 CATARACT EXTRACTION COLONOSCOPY TUBAL LIGATION WISDOM TOOTH EXTRACTION CURRENT MEDICATIONS/ALLERGIES: Current Facility-Administered Medications Medication Dose Route Frequency Provider Last Rate Last Admin acetaminophen (Tylenol) tablet 650 mg 650 mg Oral q6h PRN Angelito Matson MD Or acetaminophen (Tylenol) suppository 650 mg 650 mg Rectal q6h PRN Angelito Matson MD aspirin chewable tablet 81 mg 81 mg Oral Daily Angelito Matson MD 81 mg at 03/02/23 0859 [START ON 03/03/2023] citalopram (CeleXA) tablet 40 mg 40 mg Oral Daily Regina Yu MD enoxaparin (Lovenox) syringe 40 mg 40 mg SubCUTAneous Daily Angelito Matson MD 40 mg at 03/02/23 0859 Influenza Vac A&B SA Adj quadrivalent (Fluad) vaccine 0.5 mL 0.5 mL IntraMUSCular Prior to discharge Angelito Matson MD melatonin tablet 3 mg 3 mg Oral Nightly PRN Regina Yu MD memantine (Namenda) tablet 5 mg 5 mg Oral BID Regina Yu MD 5 mg at 03/02/23 1535 [START ON 03/10/2023] memantine (Namenda) tablet 5 mg 5 mg Oral Daily Regina Yu MD ondansetron ODT (Zofran-ODT) disintegrating tablet 4 mg 4 mg Oral q8h PRN Angelito Matson MD 4 mg at 02/28/23 1257 Or ondansetron (Zofran) injection 4 mg 4 mg IntraVENous q6h PRN Angelito Matson MD polyethylene glycol (PEG) 3350 (Miralax) packet 17 g 17 g Oral Daily PRN Angelito Matson MD senna-docusate sodium (Senokot-S) 8.6-50 MG tablet 2 tablet 2 tablet Oral BID Mayank Lynn DO 2 tablet at 03/02/23 0959 tamoxifen (Nolvadex) chemo tablet 20 mg 20 mg Oral Daily Angelito Matson MD 20 mg at 03/02/23 0859 Allergies: No Known Allergies FAMILY HISTORY: Pt cannot recall any SOCIAL HISTORY: Relationship status: Pt states she is ( last month per chart) Living situation: At home with support from family and a friend Substance Use History: Nicotine:Denies Alcohol:Denies Recreational Drugs: Denies PSYCHIATRIC EXAMINATION: Vitals: Vitals: 03/02/23 0725 BP: 124/64 Pulse: 68 Resp: 15 Temp: 36.1 C (97 F) SpO2: 95% Physical Examination: Constitutional: well developed, well nourished, in no acute distress, and alert Musculoskeletal: gait Not examined Mental Status Examination: Appearance: moderately kept, appears stated age Attitude toward examiner: Cooperative, conversant, engaged, and with good eye contact. Behavior/motor: No psychomotor agitation or retardation, no tremor or other abnormal movements. Speech: Coherent and Regular rate, rhythm, volume and articulation Mood: "Fine!" Affect: Euthymic, access to a full range, mood congruent Thought process: Paucity of content, concrete Thought content: Within normal limits Thought perception: No perceptual abnormalities noted Suicidal ideation:Denies Homicidal ideation: Denies Cognition: Grossly impaired Memory: Grossly impaired Insight: poor Judgment: poor DATA REVIEWED: Prior records have been reviewed in EMR Encounter Date: 02/27/23 ECG 12 lead Result Value Heart Rate 65 QRSD Interval 81 QT Interval 422 QTC Interval 441 P Rupert 61 QRS Rupert -22 T Wave Rupert 57 OR Interval 200 Impression Sinus rhythm Borderline left axis deviation Abnormal R-wave progression, early transition Compared to ECG 11/18/2019 12:36:03 No significant changes Electronically Signed On 02-28-2023 7:03:50 EST by Mayank Pineda Labs: Recent Results (from the past 24 hour(s)) CBC auto differential Collection Time: 03/02/23 5:01 AM Result Value Ref Range Auto WBC 6.7 3.6 - 10.7 10*3/uL RBC 3.74 (L) 3.8 - 5.20 10*6/uL Hemoglobin 11.2 (L) 11.7 - 16.0 g/dL Hematocrit 33.7 (L) 35.0 - 47.0 % MCV 90.1 80.0 - 98.0 fL MCH 30.0 26.0 - 34.0 pg MCHC 33.3 32.0 - 36.0 % RDW 13.2 11.5 - 14.5 % Platelets 174 140 - 440 10*3/uL MPV 7.9 7.4 - 12.4 fL nRBC 0.0 0.0 - 2.0 /100 WBCs Neutrophils Relative 50.9 40.0 - 80.0 % Lymphocytes Relative 37.6 20.0 - 40.0 % Monocytes Relative 8.3 2.0 - 10.0 % Eosinophils Relative 2.4 1.0 - 6.0 % Basophils Relative 0.8 0.0 - 2.0 % Neutrophils Absolute 3.4 1.8 - 7.0 10*3/uL Lymphocytes Absolute 2.5 1.0 - 4.3 10*3/uL Monocytes Absolute 0.6 0.0 - 0.8 10*3/uL Eosinophils Absolute 0.2 0.0 - 0.5 10*3/uL Basophils Absolute 0.1 0.0 - 0.2 10*3/uL Basic metabolic panel Collection Time: 03/02/23 5:01 AM Result Value Ref Range SODIUM 137 135 - 145 mmol/L POTASSIUM 4.1 3.5 - 5.1 mmol/L CHLORIDE 109 (H) 98 - 107 mmol/L CARBON DIOXIDE 24 22 - 30 mmol/L UREA NITROGEN 15 7 - 17 mg/dL CREATININE 0.63 0.52 - 1.04 mg/dL GLUCOSE 94 70 - 100 mg/dL CALCIUM 8.3 (L) 8.4 - 10.4 mg/dL ANION GAP 3 3 - 13 mmol/L eGFR 89.3 >60.0 mL/min/1.73m*2 TSH, B12, Vit D all WNL in 01/2023 PDMP records have been reviewed ASSESSMENT: Pt w/ dementia and possibly with some underlying depression. Celexa dose was recently increased to 40mg by family which allegedly was previously an effective dose, so one option would be to wait for this to take full effect in 2-4 weeks and reassess. Although it is not ideal for pt to be at this high a dose of Celexa, she has previously tolerated it, QT is not prolonged and she does not have a significant cardiac Hx. Another option would be to augment with Remeron. Either way, pt would benefit from delirium precautions additional supports at home. Diagnostic Impression: Dementia - possibly with superimposed delirium 2/2 UTI Depression, unspecified Risk of harm to self: Low Risk -- Risk factors include: Age, Loss (relational, social, occupational, financial) , and Medical illness comorbidity Protective factors include:Denies current suicidal ideation, Denies history of suicide attempts , Future-oriented talk , and Interpersonal relationships and supports, e.g., family, friends, peers, community Risk of harm to others: low - No significant risk factors identified on screening RECOMMENDATIONS: Pt does NOT require inpatient psychiatric admission. Defer to primary team for need for green slip/sitter. Medications: If family consents, could consider starting Remeron 15mg PO at bedtime for depression augmentation/appetite/sleep - can titrate, as tolerated, q4-6 weeks, to a max dose of 45mg Continue Celexa 40mg PO daily for mood/anxiety - will likely take 2-4 weeks more to fully take effect. Start Seroquel 12.5mg PO TID PRN agitation Start Zyprexa 2.5 IM TID PRN agitation if unable to give PO Agree with melatonin for sleep - could consider scheduling it to better support pt's circadian rhythm Delirium precautions: Avoid sedating/anticholinergic medications, encourage sleep hygiene, minimize barriers to nutrition, optimize sensory input and access to assistive devices (dentures, glasses, etc) where indicated, encourage time up in chair as able, D/c Cespedes, restraints, IV lines, as able and reserve agitation PRNs for instances where patient is danger to self/others/treatment. Recommendations shared with primary team. Follow up: Will sign off. Please re-consult should clinical situation change. [employer] Phone: 03-02-2023 Consult note Associated Order (s): IP CONSULT TO PSYCHIATRY Department of Psychiatry Consult Service Attending Consult Note Reason for Consult: suspected depression in setting of dementia, impacting PO intake Requesting Physician: Dr. Yu CHIEF COMPLAINT: Chief Complaint Patient presents with Nausea Altered Mental Status Lethargy Pt brought in by [facility] from home for increased lethargy, per family pt has been sleeping for 20 plus hours a day. Pt only complains of nausea with no vomiting and a headache. 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 History obtained from: patient and past medical records HISTORY OF PRESENT ILLNESS: The patient is a 82 y.o. yo female with significant past medical history of dementia, acid reflux, anxiety, hyperlipidemia, breast cancer (on Tamoxifen, follows with Dr Carlson) who arrived by ambulance after family became concerned b/c she was increasingly lethargic at home. Pt was subsequently admitted for FTT, was found to have a UTI and was Tx with IV Abx and given IVF and psychiatry was consulted. Pt reports that she is doing well. States that she is eating and sleeping well. States that she lives at home with her and denies any concerns there. Cannot state the year or where she is. Denies any concerns at this time. Collateral was obtained from the following individual: No REVIEW OF SYSTEMS: Medical Review Of Systems: Constitutional: Negative for anorexia and fatigue Psychiatric Review Of Systems: Depressed mood:Denies Sleep changes:Denies Appetite changes:Denies Anxiety/panic:Denies Suicidal ideation:Denies Homicidal ideation:Denies Access to weapons:Denies Lifetime Psychiatric Review Of Systems: Gissell or hypomania:Denies Hallucinations:Denies PAST PSYCHIATRIC HISTORY: The patient is currently receiving care for the above psychiatric illness with PCP. Previous psychiatric hospitalizations: Denies Previous suicide attempts:Denies Past psychiatric medications include: None per chart and pt cannot recall PAST MEDICAL/SURGICAL HISTORY: Past Medical History: Past Medical History: Diagnosis Date Acid reflux Anxiety Breast cancer (HCC) Hyperlipidemia Past Surgical History: Past Surgical History: Procedure Laterality Date BREAST BIOPSY BREAST LUMPECTOMY 11/21/2019 CATARACT EXTRACTION COLONOSCOPY TUBAL LIGATION WISDOM TOOTH EXTRACTION CURRENT MEDICATIONS/ALLERGIES: Current Facility-Administered Medications Medication Dose Route Frequency Provider Last Rate Last Admin acetaminophen (Tylenol) tablet 650 mg 650 mg Oral q6h PRN Angelito Matson MD Or acetaminophen (Tylenol) suppository 650 mg 650 mg Rectal q6h PRN Angelito Matson MD aspirin chewable tablet 81 mg 81 mg Oral Daily Angelito Matson MD 81 mg at 03/02/23 0859 [START ON 03/03/2023] citalopram (CeleXA) tablet 40 mg 40 mg Oral Daily Regina Yu MD enoxaparin (Lovenox) syringe 40 mg 40 mg SubCUTAneous Daily Angelito Matson MD 40 mg at 03/02/23 0859 Influenza Vac A&B SA Adj quadrivalent (Fluad) vaccine 0.5 mL 0.5 mL IntraMUSCular Prior to discharge Angelito Matson MD melatonin tablet 3 mg 3 mg Oral Nightly PRN Regina Yu MD memantine (Namenda) tablet 5 mg 5 mg Oral BID Regina Yu MD 5 mg at 03/02/23 1535 [START ON 03/10/2023] memantine (Namenda) tablet 5 mg 5 mg Oral Daily Regina M Simmers, MD ondansetron ODT (Zofran-ODT) disintegrating tablet 4 mg 4 mg Oral q8h PRN Angelito Matson MD 4 mg at 02/28/23 1257 Or ondansetron (Zofran) injection 4 mg 4 mg IntraVENous q6h PRN Angelito Matson MD polyethylene glycol (PEG) 3350 (Miralax) packet 17 g 17 g Oral Daily PRN Angelito Matson MD senna-docusate sodium (Senokot-S) 8.6-50 MG tablet 2 tablet 2 tablet Oral BID Mayank Lynn DO 2 tablet at 03/02/23 0959 tamoxifen (Nolvadex) chemo tablet 20 mg 20 mg Oral Daily Angelito Matson MD 20 mg at 03/02/23 0859 Allergies: No Known Allergies FAMILY HISTORY: Pt cannot recall any SOCIAL HISTORY: Relationship status: Pt states she is ( last month per chart) Living situation: At home with support from family and a friend Substance Use History: Nicotine:Denies Alcohol:Denies Recreational Drugs: Denies PSYCHIATRIC EXAMINATION: Vitals: Vitals: 03/02/23 0725 BP: 124/64 Pulse: 68 Resp: 15 Temp: 36.1 C (97 F) SpO2: 95% Physical Examination: Constitutional: well developed, well nourished, in no acute distress, and alert Musculoskeletal: gait Not examined Mental Status Examination: Appearance: moderately kept, appears stated age Attitude toward examiner: Cooperative, conversant, engaged, and with good eye contact. Behavior/motor: No psychomotor agitation or retardation, no tremor or other abnormal movements. Speech: Coherent and Regular rate, rhythm, volume and articulation Mood: "Fine!" Affect: Euthymic, access to a full range, mood congruent Thought process: Paucity of content, concrete Thought content: Within normal limits Thought perception: No perceptual abnormalities noted Suicidal ideation:Denies Homicidal ideation: Denies Cognition: Grossly impaired Memory: Grossly impaired Insight: poor Judgment: poor DATA REVIEWED: Prior records have been reviewed in EMR Encounter Date: 02/27/23 ECG 12 lead Result Value Heart Rate 65 QRSD Interval 81 QT Interval 422 QTC Interval 441 P Rupert 61 QRS Rupert -22 T Wave Rupert 57 OR Interval 200 Impression Sinus rhythm Borderline left axis deviation Abnormal R-wave progression, early transition Compared to ECG 11/18/2019 12:36:03 No significant changes Electronically Signed On 02-28-2023 7:03:50 EST by Mayank Pineda Labs: Recent Results (from the past 24 hour(s)) CBC auto differential Collection Time: 03/02/23 5:01 AM Result Value Ref Range Auto WBC 6.7 3.6 - 10.7 10*3/uL RBC 3.74 (L) 3.8 - 5.20 10*6/uL Hemoglobin 11.2 (L) 11.7 - 16.0 g/dL Hematocrit 33.7 (L) 35.0 - 47.0 % MCV 90.1 80.0 - 98.0 fL MCH 30.0 26.0 - 34.0 pg MCHC 33.3 32.0 - 36.0 % RDW 13.2 11.5 - 14.5 % Platelets 174 140 - 440 10*3/uL MPV 7.9 7.4 - 12.4 fL nRBC 0.0 0.0 - 2.0 /100 WBCs Neutrophils Relative 50.9 40.0 - 80.0 % Lymphocytes Relative 37.6 20.0 - 40.0 % Monocytes Relative 8.3 2.0 - 10.0 % Eosinophils Relative 2.4 1.0 - 6.0 % Basophils Relative 0.8 0.0 - 2.0 % Neutrophils Absolute 3.4 1.8 - 7.0 10*3/uL Lymphocytes Absolute 2.5 1.0 - 4.3 10*3/uL Monocytes Absolute 0.6 0.0 - 0.8 10*3/uL Eosinophils Absolute 0.2 0.0 - 0.5 10*3/uL Basophils Absolute 0.1 0.0 - 0.2 10*3/uL Basic metabolic panel Collection Time: 03/02/23 5:01 AM Result Value Ref Range SODIUM 137 135 - 145 mmol/L POTASSIUM 4.1 3.5 - 5.1 mmol/L CHLORIDE 109 (H) 98 - 107 mmol/L CARBON DIOXIDE 24 22 - 30 mmol/L UREA NITROGEN 15 7 - 17 mg/dL CREATININE 0.63 0.52 - 1.04 mg/dL GLUCOSE 94 70 - 100 mg/dL CALCIUM 8.3 (L) 8.4 - 10.4 mg/dL ANION GAP 3 3 - 13 mmol/L eGFR 89.3 >60.0 mL/min/1.73m*2 TSH, B12, Vit D all WNL in 01/2023 [facility] records have been reviewed ASSESSMENT: Pt w/ dementia and possibly with some underlying depression. Celexa dose was recently increased to 40mg by family which allegedly was previously an effective dose, so one option would be to wait for this to take full effect in 2-4 weeks and reassess. Although it is not ideal for pt to be at this high a dose of Celexa, she has previously tolerated it, QT is not prolonged and she does not have a significant cardiac Hx. Another option would be to augment with Remeron. Either way, pt would benefit from delirium precautions additional supports at home. Diagnostic Impression: Dementia - possibly with superimposed delirium 2/2 UTI Depression, unspecified Risk of harm to self: Low Risk -- Risk factors include: Age, Loss (relational, social, occupational, financial) , and Medical illness comorbidity Protective factors include:Denies current suicidal ideation, Denies history of suicide attempts , Future-oriented talk , and Interpersonal relationships and supports, e.g., family, friends, peers, community Risk of harm to others: low - No significant risk factors identified on screening RECOMMENDATIONS: Pt does NOT require inpatient psychiatric admission. Defer to primary team for need for green slip/sitter. Medications: If family consents, could consider starting Remeron 15mg PO at bedtime for depression augmentation/appetite/sleep - can titrate, as tolerated, q4-6 weeks, to a max dose of 45mg Continue Celexa 40mg PO daily for mood/anxiety - will likely take 2-4 weeks more to fully take effect. Start Seroquel 12.5mg PO TID PRN agitation Start Zyprexa 2.5 IM TID PRN agitation if unable to give PO Agree with melatonin for sleep - could consider scheduling it to better support pt's circadian rhythm Delirium precautions: Avoid sedating/anticholinergic medications, encourage sleep hygiene, minimize barriers to nutrition, optimize sensory input and access to assistive devices (dentures, glasses, etc) where indicated, encourage time up in chair as able, D/c Cespedes, restraints, IV lines, as able and reserve agitation PRNs for instances where patient is danger to self/others/treatment. Recommendations shared with primary team. Follow up: Will sign off. Please re-consult should clinical situation change. Associated Order(s): IP CONSULT TO GERIATRICS [facility] Geriatric Medicine Inpatient Consult Service Admission Date: 02/27/2023 Admission Status: INPATIENT Chief Complaint: altered mental status, poor PO intake Reason for Appointment Geriatrics consulted for altered mental status Assessment & Plan Principal Problem: Failure to thrive in adult Active Problems: Dementia (HCC) At risk for delirium Depression At risk for malnutrition Debility Dementia -likely Alzheimer's Disease -needs 24/ care at this time due to poor IADL/ADL care in setting of dementia and depression -She takes namenda XR 21 mg daily at home. It was started in December. Family reported no benefit. I am concerned it could be impacting her mood. -Will wean off the namenda -Will decrease namenda to 5 mg BID x7 days (equivalent to the XR 14 mg dose), then 5 mg daily x 7 days. Then stop. Monitor for cognitive changes -Recommend follow up at [facility] for geriatric cognitive evaluation when in usual state of health. Depression -Suspect depression is contributing to apathy, poor PO intake, and decline in ADLs at home. Do not think these symptoms are related only to her dementia, as they do not improve with increased family involvement. -Patient recently had a major life change (spouse in early January) -Family had increased the celexa back to previous home dose of 40 mg daily on 02/18. -qtc is within normal limits. Ok to continue the celexa 40 mg daily for now while we await psychiatry recommendations. -Will consult psychiatry for evaluation. DIL aware. At Risk for Malnutrition -Dietitian following. -Started on Ensure. Debility -Contributing factors include: physical deconditioning, dementia, recent hospitalization -Physical Therapy and Occupational Therapy evaluations Subjective: HPI 82 y.o. year-old female with past medical history of dementia, acid reflux, anxiety, hyperlipidemia, breast cancer (on Tamoxifen, follows with Dr Carlson) who presented to hospital with altered mental status. I reviewed patient's chart, including H&P and multiple progress notes. The following is a summary. -Patient has been having increased confusion, poor appetite, and increasing weakness for the past two weeks. Has been sleep for 20 or more hours a day. She did lose her one month ago. -found to have UTI and treated with IV antibiotics -given IVF. Physical Therapy and Occupational Therapy saw patient and recommend home with home health and 10/11 supervision. -Seen by geriatrics during last hospitalization in January. Family reported long standing history of cognitive decline. Her had recently and she didn't remember he . She was brought to the hospital after being found wandering outside. BMP today: unremarkable CBC today: within normal limits Urine culture did come back within normal limits Conversation with patient: -patient is aware she is at [facility] but is not sure why. She says she generally "does not feel well today". She has trouble describing how she is feeling. On ROS, she somewhat admits to stomach issues. May feel nauseated when she eats. She is not sure how well she is moving her bowels. Thinks she may have constipation. -she denies pain -says her appetite is OK and that she is sleeping OK -doesn't know the month (thinks it may be June or July) or the year. Conversation with caregiver: ALIX Weber. -patient did well for one day after the hospitalization before declining at home -At first, she wouldn't fix herself food and do her chores like she would normally. The apathy continued to worsen. She would barely eat or drink even with encouragement from family and meals being prepared by family. She wouldn't take care of her ADLs such as brushing her teeth. This was something was doing before her in early January. -Kept telling family she is "bored". Family would suggest things for her and she wouldn't do them. Even when family actively tried to engage patient in activities (as opposed to just asking her if she wanted to do something) she would refuse to do them. -she is sleeping for most of the day -the namenda had been started by PCP in early December. ALIX not sure it has helped at all -she initially took the celexa 20 mg after hospital discharge. However, family increased it back to the prior dose of 40 mg on February 18 as they felt she was struggling with depression. Patient's had been in the longterm from October to Early January before his passing. Patient was living on her own at that time but did have family coming over every day and a family friend would come over three days a week to help take care of her. At that time, she was doing her own ADLs and participating in IADLs such as cleaning. Advance Care Planning Healthcare Power of Tongue Carrier: yes Financial Power of Tongue Carrier: yes No Known Allergies Current Facility-Administered Medications: acetaminophen (Tylenol) tablet 650 mg, 650 mg, Oral, q6h PRN OR acetaminophen (Tylenol) suppository 650 mg, 650 mg, Rectal, q6h PRN, Angelito Matson MD aspirin chewable tablet 81 mg, 81 mg, Oral, Daily, Angelito Matson MD, 81 mg at 03/02/23 0859 [START ON 03/03/2023] citalopram (CeleXA) tablet 40 mg, 40 mg, Oral, Daily, Regina Yu MD enoxaparin (Lovenox) syringe 40 mg, 40 mg, SubCUTAneous, Daily, Angelito Matson MD, 40 mg at 03/02/23 0859 Influenza Vac A&B SA Adj quadrivalent (Fluad) vaccine 0.5 mL, 0.5 mL, IntraMUSCular, Prior to discharge, Angelito Matson MD melatonin tablet 3 mg, 3 mg, Oral, Nightly PRN, Regina Yu MD memantine (Namenda) tablet 5 mg, 5 mg, Oral, BID, Regina Yu MD [START ON 03/10/2023] memantine (Namenda) tablet 5 mg, 5 mg, Oral, Daily, Regina Yu MD ondansetron ODT (Zofran-ODT) disintegrating tablet 4 mg, 4 mg, Oral, q8h PRN, 4 mg at 02/28/23 1257 OR ondansetron (Zofran) injection 4 mg, 4 mg, IntraVENous, q6h PRN, Angelito Matson MD polyethylene glycol (PEG) 3350 (Miralax) packet 17 g, 17 g, Oral, Daily PRN, Angelito Matson MD senna-docusate sodium (Senokot-S) 8.6-50 MG tablet 2 tablet, 2 tablet, Oral, BID, Mayank Lynn DO, 2 tablet at 03/02/23 0959 tamoxifen (Nolvadex) chemo tablet 20 mg, 20 mg, Oral, Daily, Angelito Matson MD, 20 mg at 03/02/23 0859 Past Medical History: Diagnosis Date Acid reflux Anxiety Breast cancer (HCC) Hyperlipidemia Past Surgical History: Procedure Laterality Date BREAST BIOPSY BREAST LUMPECTOMY 11/21/2019 CATARACT EXTRACTION COLONOSCOPY TUBAL LIGATION WISDOM TOOTH EXTRACTION Social History Tobacco Use Smoking status: Never Smokeless tobacco: Never Substance Use Topics Alcohol use: Not on file Social History Social History Narrative Not on file Family History No family history on file. No family status information on file. Review of Systems Constitutional: Negative for chills and fever. HENT: Negative for rhinorrhea and sore throat. Eyes: Negative for pain and visual disturbance. Respiratory: Negative for cough and shortness of breath. Cardiovascular: Negative for chest pain and leg swelling. Gastrointestinal: Positive for nausea. Negative for abdominal pain, constipation (maybe?) and diarrhea. Genitourinary: Negative for difficulty urinating and dysuria. Musculoskeletal: Negative for arthralgias and myalgias. Neurological: Negative for dizziness, weakness and light-headedness. Psychiatric/Behavioral: Positive for dysphoric mood. Negative for confusion. Functional Status Prior to Admission: (I: Independent, A: Assisted, D: Dependent) ADLs I A D Notes Bathing [] [] [] Normally could take care of ADLs but for the past several weeks she has been requiring cueing and has been resistant to self care Dressing [] [] [] Toileting [] [] [] Transfers [] [] [] Feeding [] [] [] Ambulation [] [] [] Assistive devices: IADLs I A D Telephone [] [x] [] Transportation [] [] [x] Shopping [] [] [x] Meal prep [] [x] [] Housework [] [x] [] Hasn't been contributing for the past several weeks Medications [] [] [x] Family is now administering medications Finances [] [] [x] Objective: BP 124/64 Pulse 68 Temp 36.1 C (97 F) (Temporal) Resp 15 Ht 5' 4" (1.626 m) Wt 161 lb 13.1 oz (73.4 kg) SpO2 95% BMI 27.78 kg/m No intake or output data in the 24 hours ending 03/02/23 1439 Wt Readings from Last 3 Encounters: 02/27/23 161 lb 13.1 oz (73.4 kg) 08/28/22 166 lb 12.8 oz (75.7 kg) 02/24/22 165 lb 14.4 oz (75.3 kg) Physical Exam Constitutional: General: She is not in acute distress. Appearance: She is not ill-appearing. HENT: Head: Normocephalic and atraumatic. Cardiovascular: Rate and Rhythm: Normal rate and regular rhythm. Heart sounds: No murmur heard. No friction rub. No gallop. Pulmonary: Effort: Pulmonary effort is normal. Breath sounds: Normal breath sounds. No decreased breath sounds, wheezing, rhonchi or rales. Comments: Auscultated anteriorly only Abdominal: General: There is no distension. Palpations: Abdomen is soft. Tenderness: There is no abdominal tenderness. There is no guarding or rebound. Musculoskeletal: Right lower leg: No edema. Left lower leg: No edema. Neurological: Mental Status: She is alert. Comments: Oriented to person and place Psychiatric: Attention and Perception: Attention normal. Mood and Affect: Affect is blunt. Behavior: Behavior is cooperative. Cognition and Memory: Cognition is impaired. Memory is impaired. Comments: Says that she feels "sad" sometimes Labs and Imaging: Recent Results (from the past 24 hour(s)) CBC auto differential Collection Time: 03/02/23 5:01 AM Result Value Ref Range Auto WBC 6.7 3.6 - 10.7 10*3/uL RBC 3.74 (L) 3.8 - 5.20 10*6/uL Hemoglobin 11.2 (L) 11.7 - 16.0 g/dL Hematocrit 33.7 (L) 35.0 - 47.0 % MCV 90.1 80.0 - 98.0 fL MCH 30.0 26.0 - 34.0 pg MCHC 33.3 32.0 - 36.0 % RDW 13.2 11.5 - 14.5 % Platelets 174 140 - 440 10*3/uL MPV 7.9 7.4 - 12.4 fL nRBC 0.0 0.0 - 2.0 /100 WBCs Neutrophils Relative 50.9 40.0 - 80.0 % Lymphocytes Relative 37.6 20.0 - 40.0 % Monocytes Relative 8.3 2.0 - 10.0 % Eosinophils Relative 2.4 1.0 - 6.0 % Basophils Relative 0.8 0.0 - 2.0 % Neutrophils Absolute 3.4 1.8 - 7.0 10*3/uL Lymphocytes Absolute 2.5 1.0 - 4.3 10*3/uL Monocytes Absolute 0.6 0.0 - 0.8 10*3/uL Eosinophils Absolute 0.2 0.0 - 0.5 10*3/uL Basophils Absolute 0.1 0.0 - 0.2 10*3/uL Basic metabolic panel Collection Time: 03/02/23 5:01 AM Result Value Ref Range SODIUM 137 135 - 145 mmol/L POTASSIUM 4.1 3.5 - 5.1 mmol/L CHLORIDE 109 (H) 98 - 107 mmol/L CARBON DIOXIDE 24 22 - 30 mmol/L UREA NITROGEN 15 7 - 17 mg/dL CREATININE 0.63 0.52 - 1.04 mg/dL GLUCOSE 94 70 - 100 mg/dL CALCIUM 8.3 (L) 8.4 - 10.4 mg/dL ANION GAP 3 3 - 13 mmol/L eGFR 89.3 >60.0 mL/min/1.73m*2 Lab Results Component Value Date TSH 1.803 02/27/2023 No components found for: "B12" Lab Results Component Value Date VITD25 48 02/04/2023 Reviewed: active problem list, medication list, social history, notes from last encounter, lab results Follow-up: will follow with you Regina Yu MD 03/02/23 2:39 PM Associated Order(s): IP CONSULT TO DIETITIAN Nutrition Assessment Type and Reason for Visit: Initial, Consult (Poor PO) Nutrition Recommendations/Plan: Continue with Adult diet Regular Initiate Ensure Plus strawberry BID per MNT protocol. Ensure Plus provides 350 kcals and 13 g of protein per 8 oz serving. Please document pt's PO intakes via flowsheet to accurately assess PO intake adequacy. Vitamin D was checked last month and WNL. Suggest recheck with decreased PO and decreased activity for 1 mo. Monitor intakes, weights, and labs weekly. RD will follow. Malnutrition Assessment: Malnutrition Status: At risk for malnutrition (Comment) (decreased PO) Context: Social/Environmental Circumstances Findings of the 6 clinical characteristics of malnutrition: Energy Intake: 50% or less estimated energy requirements for 1 month or longer (Pt's a month ago.) Weight Loss: (3% wt loss in 6 mo) Body Fat Loss: Unable to assess Muscle Mass Loss: Unable to assess Fluid Accumulation: No significant fluid accumulation Drug Safety Scientist Strength: Not Performed Nutrition Assessment: Pt was admitted with FTT, nausea, AMS, and lethargy. Family has noticed that pt has not been eating, drinking, and sleeping for 20+ hours a day. Family has been having to force her to eat/drink prior to admission. Pt reportedly lost her a month ago. This AM, pt was pleasant, reports she has an appetite, but is a poor historian. Pt reported that Estimated Daily Nutrient Needs: Energy Requirements Based On: Kcal/kg Weight Used for Energy Requirements: Point Weight for Energy Calculation (kg): 55 kg Total Energy Requirements (kcals/day): 9207-1675 kcals (25-30 kcals/kg) Weight Used for Protein Requirements: Point Weight in Kg Used for Protein Requirements: 55 kg Estimated Total Protein (g/day): 55-66 (1-1.2g/kg) Estimated Daily Total Fluid (ml/day): 9111-7468 ml/day or per MD Nutrition Related Findings: no edema, BUN 19 Wound Type: None Current Nutrition Therapies: Adult diet Regular Current Oral Intake Average Meal Intake: (Pt had not eaten breakfast yet; decreased PO CASING TRIMMER) Average Supplements Intake: None Ordered Anthropometric Measures: Height: 162.6 cm (5' 4") Current Body Weight: 73 kg (161 lb) Weight Source: Bed Scale Admission Body Weight: 73 kg (161 lb) Usual Body Weight: 75.3 kg (166 lb) (08/28/22) % Weight Change (Calculated): -3 Point Body Weight (lbs) (Calculated): 120 lbs Point Body Weight (Kg) (Calculated): 55 kg % Point Body Weight (Calculated): 134.2 % BMI (kg/m2) (Calculated): 27.6 Weight Adjustment For: No Adjustment BMI Categories: Overweight (BMI 25.0-29.9) Nutrition Diagnosis: Inadequate oral intake, Inadequate protein intake related to psychological cause or life stress as evidenced by poor intake prior to admission Nutrition Interventions: Nutrition Education/Counseling: No recommendation at this time Coordination of Nutrition Care: Continue to monitor while inpatient Plan of Care discussed with: Patient Goals: Goals: PO intake 75% or greater, by next RD assessment Nutrition Monitoring and Evaluation: Behavioral-Environmental Outcomes: None Identified Food/Nutrient Intake Outcomes: Diet Advancement/Tolerance, Food and Nutrient Intake, Supplement Intake Physical Signs/Symptoms Outcomes: Biochemical Data, GI Status, Fluid Status or Edema, Nutrition Focused Physical Findings, Skin, Weight Discharge Planning: Continue current diet, Continue Oral Nutrition Supplement Belén Garcia RD Contact: *[phone] or via Secure Chat documented in this encounter [facility] 03-02-2023 Note Formatting of this n ote might be different from the original. Care Managment Initial Assessment Date: 03/02/2023 Patient Name: Albina Brown : 1940 Patient Information Source of Information: 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 Software Engineer Name/Contact Information: Renetta THOMSON Cognition/Language: Confused at baseline Permission given to speak with patient technical services representative/caregiver as indicated: Yes Confirmation of Payer with patient/family: Yes Payer Name: [place]; [facility] Medicaid : No Confirmation of Primary Care Physician: Confirmed PCP Name: Dr. Dennis Coughlin Seen in last 2 years?: Yes Primary Caregiver: Family If assistance needed, confirmed caregiver ready, willing and able to care for patient at discharge: Yes Confirmed with: ALIX Weber Living Arrangements Current Residence: (trailer) Number of Floors Number of Entry Steps: 2 Bed/Bath Levels: Both first floor Facility: Facility Name: Plan to Return: Lives with: Children Support Systems: Children Activities of Daily Living Ambulation: Assistance Bathing/Dressing: Assistance Elimination/Continence/Toiletin g: Assistance Feeding: Assistance Who Assists with Activities of Daily Living: care givers, family Instrumental Activities of Daily Living Prescription Coverage: Yes [facility]acy Used: [facility] Medication Management: Assistance Type: Dose packaging system Who assists with medication securing and setup?: DIL Transportation/Shopping: Assistance Provider Transportation/Shopping Assistance Provider Name: family Transportation Mode: Car Needs Assistance with Transportation at Discharge: No Meal Preparation: Assistance Provider Meal Prep Assistance Provider Name: family and caregivers Laundry/Cleaning: Assistance Provider Laundry/Cleaning Assistance Provider Name: family and caregivers Finances/Bill Paying: Assistance Provider Finances/Bill Payer Assistance Provider Name: family Communication: Assistance Types of Care Services/Equipment Utilized Care Services: Skilled Home Health Services, Passport/Waiver Care Services Provider Name: ESVIN RN/PT/OT; family friend; Francisco Javier working on getting CONTROL ELECTRICIAN Dialysis Type: Durable Medical Equipment: Cane, Walker (refuses to use) Patient's Goal/Discharge Plan Patient expects to be discharged to: TBD Discharge Planning Actions: Continue to follow Patient's Choice Rights and [employer] and Collaborative Relationships Disclosed as Indicated for Post-Acute Care: Interdisciplinary Team Engagement: Geriatric Assessment, Home Health Care Social Work Referral for: Additional Information: Pt with dementia admitted with decline is mental and physical status, UTI, dehydration. Receiving IV ATBX. 01/21/2023 - pt has been declining ever since per family. Spoke with pt's ALIX Rosenthal via phone, introduced self and role. [facility] pt resides in a trailer alone. Family friend and DIL provide basic care, but pt is alone at times. Pt no longer drives. Pt refuses to use cane or walker and is very unsteady. [facility] pt has been refusing to eat, drink, shower recently. Active with ESVIN RN/PT/OT. Active with GERA Mcintyre [phone]. 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 Discussed PT/OT recommendation for Home with HHC and / assist vs SNF. DIL would like to wait for the geriatric evaluation before making final decision. Also discussed other options such as private duty companions, caregivers, memory care facilities for in the future. DIL states pt's had been at [facility] memory care. DCP: TBD: home with HHC vs SNF TCC will cont to follow. Che Howell RN [facility] 03-02-2023 Note Formatting of this n ote might be different from the original. Care Managment Initial Assessment Date: 03/02/2023 Patient Name: Albina Brown : 1940 Patient Information Source of Information: 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 Software Engineer Name/Contact Information: Renetta THOMSON Cognition/Language: Confused at baseline Permission given to speak with patient technical services representative/caregiver as indicated: Yes Confirmation of Payer with patient/family: Yes Payer Name: [place] Medicare [place]age; [facility] Medicaid [place]: No Confirmation of Primary Care Physician: Confirmed PCP Name: Dr. Dennis Coughlin Seen in last 2 years?: Yes Primary Caregiver: Family If assistance needed, confirmed caregiver ready, willing and able to care for patient at discharge: Yes Confirmed with: ALIX Weber Living Arrangements Current Residence: ([place]) Number of Floors Number of Entry Steps: 2 Bed/Bath Levels: Both first floor Facility: Facility Name: Plan to Return: Lives with: Children Support Systems: Children Activities of Daily Living Ambulation: Assistance Bathing/Dressing: Assistance Elimination/Continence/Toiletin g: Assistance Feeding: Assistance Who Assists with Activities of Daily Living: care givers, family Instrumental Activities of Daily Living Prescription Coverage: Yes Pharmacy Used: [facility] Medication Management: Assistance Type: Dose packaging system Who assists with medication securing and setup?: DIL Transportation/Shopping: Assistance Provider Transportation/Shopping Assistance Provider Name: family Transportation Mode: Car Needs Assistance with Transportation at Discharge: No Meal Preparation: Assistance Provider Meal Prep Assistance Provider Name: family and caregivers Laundry/Cleaning: Assistance Provider Laundry/Cleaning Assistance Provider Name: family and caregivers Finances/Bill Paying: Assistance Provider Finances/Bill Payer Assistance Provider Name: family Communication: Assistance Types of Care Services/Equipment Utilized Care Services: Skilled Home Health Services, Passport/Waiver Care Services Provider Name: ESVIN RN/PT/OT; family friend; Francisco Javier working on getting CONTROL ELECTRICIAN Dialysis Type: Durable Medical Equipment: Cane, Walker (refuses to use) Patient's Goal/Discharge Plan Patient expects to be discharged to: TBD Discharge Planning Actions: Continue to follow Patient's Choice Rights and [employer] and Collaborative Relationships Disclosed as Indicated for Post-Acute Care: Interdisciplinary Team Engagement: Geriatric Assessment, Home Health Care Social Work Referral for: Additional Information: Pt with dementia admitted with decline is mental and physical status, UTI, dehydration. Receiving IV ATBX. 01/21/2023 - pt has been declining ever since per family. Spoke with pt's DIL Renetta Rosenthal via phone, introduced self and role. [facility] pt resides in a trailer alone. Family friend and DIL provide basic care, but pt is alone at times. Pt no longer drives. Pt refuses to use cane or walker and is very unsteady. [facility] pt has been refusing to eat, drink, shower recently. Active with ESVIN RN/PT/OT. Active with GERA Mcintyre [phone]. 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 Discussed PT/OT recommendation for Home with HHC and 10/11 assist vs SNF. DIL would like to wait for the geriatric evaluation before making final decision. Also discussed other options such as private duty companions, caregivers, memory care facilities for in the future. [facility] pt's had been at [facility] memory care. DCP: TBD: home with HHC vs SNF TCC will cont to follow. Che Howell RN [facility] 03-02-2023 Note Hospitalist Progress Note 03/02/2023 [phone]: Please page me ([phone]) for patient care issues. [phone]: Please page [facility] Hospitalist for any issues. Subjective: Admit Date: 02/27/2023 PCP: MADYSON COLLINS DO Room#: B1-153/B1-153 B Interval History: No overnight issues. Denies chest pain, sob, abdominal pain,, vomiting, diarrhea, constipation, fevers, or chills. Endorses feeling better today. Appetite improving. No nausea or vomiting today. Adult diet Regular 24HR INTAKE/OUTPUT: No intake or output data in the 24 hours ending 03/02/23 113 Past Medical History: Past Medical History: Diagnosis Date Acid reflux Anxiety Breast cancer (HCC) Hyperlipidemia LABS: CBC: Recent Labs 02/27/23205703/01/2342003/02/23 0501 WBC 8.4 6.5 6.7 RBC 4.38 3.88 3.74* HGB 13.2 11.9 11.2* HCT 40.0 35.3 33.7* MCV 91.2 90.8 90.1 RDW 13.2 12.9 13.2 PLT 210 154 174 BMP: Recent Labs 02/27/23205703/01/23 0421 03/02/23 0501 NA 137 136 137 K 3.7 3.4* 4.1 CL 106 109* 109* CO2 24 23 24 BUN 19* 13 15 CREATININE 0.69 0.53 0.63 GLUCOSE 99 94 94 CALCIUM 9.0 8.5 8.3* ANIONGAP 7 4 3 LIVER PROFILE: Recent Labs 02/27/232057 AST 46 ALT 30 BILITOT 0.5 ALKPHOS 58 PROT 7.1 PT/INR: No results for input(s): "PROTIME", "INR" in the last 72 hours. CARDIAC ENZYMES: Recent Labs 02/27/23205702/28/23 0444 TROPONINI <0.012 <0.012 Procalcitonin: No results found for: "PROCAL" COVID-19 PCR: No results for input(s): "COVID19" in the last 72 hours. Objective: Vitals: BP 124/64 Pulse 68 Temp 36.1 ?C (97 ?F) (Temporal) Resp 15 Ht 5' 4" (1.626 m) Wt 161 lb 13.1 oz (73.4 kg) SpO2 95% BMI 27.78 kg/m? Pulse Ox: SpO2 Av % Min: 93 % Max: 95 % Supplemental O2: General appearance: No apparent distress, appears stated age and cooperative with exam, frail elderly female in NAD, AAOx2 Respiratory: CTA BL, Cardiovascular: Regular rate and rhythm with no murmur Abdomen: Soft, non-tender, non-distended Skin: Skin color, texture, turgor normal. No rashes or lesions. Distal pulses intact in BL LE. No edema in BL LE. Neurologic: grossly non-focal. Medications: aspirin, 81 mg, Oral, Daily citalopram, 20 mg, Oral, Daily enoxaparin, 40 mg, SubCUTAneous, Daily influenza, 0.5 mL, IntraMUSCular, Prior to discharge senna-docusate sodium, 2 tablet, Oral, BID tamoxifen, 20 mg, Oral, Daily Assessment Dementia, progressive Failure to thrive Dehydration, poor oral intake CT head negative Geriatrics on consult PT/OT eval and treat IVF given in the ED Nutritional supplementation TID UTI UC reviewed Rocephin IV, completed course HLD Hx of Breast cancer tamoxifen Anxiety/depression Celexa GERD Intermittent nausea PRN zofran Medical Decision Making 02/28/23: patient admitted for failure to thrive, in setting of decreased activity at home, poor oral intake. Dementia that has been progressive. Increased confusion. Recent admission for rapid progressive dementia. Patient refusing PT/OT at home. Found to have UTI, treating with IV abx. Labs otherwise largely unremarkable. Geriatrics on consult. CT head negative. Encourage PO intake. IVF given in the ED. Home meds resumed otherwise. 03/01/23: PT/OT recommending home with [facility]. Labs and vitals stable. Continue IV abx for UTI. Geriatrics eval pending. 03/02/23: patient admitted for failure to thrive, sleeping 20 hours per day, poor oral intake. Hx of dementia that is progressive. Treated for UTI, completed abx course. Geriatrics eval pending, consult acknowledged on 02/28. Labs and vitals otherwise stable. OT recommending possible SNF? -am labs, replace lytes prn -increase activity -resume home medications as indicated -DVT prophylaxis: [x] Lovenox [] Heparin [] SCDs [x] Encourage ambulation [] Already on Anticoagulation Anticipated Discharge - Date - 03/03/23 - Location - Home vs SNF - Pending the following - PT/OT, improvement in weakness and nausea, , geriatrics eval Toxic drug monitoring/narrow therapeutic index drug monitoring : # Drug name : # Route administered : # Method of monitoring : Extended Emergency Contact Information Primary Emergency Contact: Renetta Rosenthal Relation: Child Secondary Emergency Contact: Ted Domínguez Relation: Child Mayank AlasDO cassie Division of Hospitalist Medicine Inpatient Medical Services/[facility] PAGER: Araceli morrison [facility] 03-02-2023 Consult note Associated Order (s): IP CONSULT TO GERIATRICS [facility] Geriatric Medicine Inpatient Consult Service Admission Date: 02/27/2023 Admission Status: INPATIENT Chief Complaint: altered mental status, poor PO intake Reason for Appointment Geriatrics consulted for altered mental status Assessment & Plan Principal Problem: Failure to thrive in adult Active Problems: Dementia (HCC) At risk for delirium Depression At risk for malnutrition Debility Dementia -likely Alzheimer's Disease -needs / care at this time due to poor IADL/ADL care in setting of dementia and depression -She takes namenda XR 21 mg daily at home. It was started in December. Family reported no benefit. I am concerned it could be impacting her mood. -Will wean off the namenda -Will decrease namenda to 5 mg BID x7 days (equivalent to the XR 14 mg dose), then 5 mg daily x 7 days. Then stop. Monitor for cognitive changes -Recommend follow up at [facility] for geriatric cognitive evaluation when in usual state of health. Depression -Suspect depression is contributing to apathy, poor PO intake, and decline in ADLs at home. Do not think these symptoms are related only to her dementia, as they do not improve with increased family involvement. -Patient recently had a major life change (spouse in early January) -Family had increased the celexa back to previous home dose of 40 mg daily on 02/18. -qtc is within normal limits. Ok to continue the celexa 40 mg daily for now while we await psychiatry recommendations. -Will consult psychiatry for evaluation. DIL aware. At Risk for Malnutrition -Dietitian following. -Started on Ensure. Debility -Contributing factors include: physical deconditioning, dementia, recent hospitalization -Physical Therapy and Occupational Therapy evaluations Subjective: HPI 82 y.o. year-old female with past medical history of dementia, acid reflux, anxiety, hyperlipidemia, breast cancer (on Tamoxifen, follows with Dr Carlson) who presented to hospital with altered mental status. I reviewed patient's chart, including H&P and multiple progress notes. The following is a summary. -Patient has been having increased confusion, poor appetite, and increasing weakness for the past two weeks. Has been sleep for 20 or more hours a day. She did lose her one month ago. -found to have UTI and treated with IV antibiotics -given IVF. Physical Therapy and Occupational Therapy saw patient and recommend home with home health and 10/11 supervision. -Seen by geriatrics during last hospitalization in January. Family reported long standing history of cognitive decline. Her had recently and she didn't remember he . She was brought to the hospital after being found wandering outside. BMP today: unremarkable CBC today: within normal limits Urine culture did come back within normal limits Conversation with patient: -patient is aware she is at [facility] but is not sure why. She says she generally "does not feel well today". She has trouble describing how she is feeling. On ROS, she somewhat admits to stomach issues. May feel nauseated when she eats. She is not sure how well she is moving her bowels. Thinks she may have constipation. -she denies pain -says her appetite is OK and that she is sleeping OK -doesn't know the month (thinks it may be June or July) or the year. Conversation with caregiver: ALIX Weber. -patient did well for one day after the hospitalization before declining at home -At first, she wouldn't fix herself food and do her chores like she would normally. The apathy continued to worsen. She would barely eat or drink even with encouragement from family and meals being prepared by family. She wouldn't take care of her ADLs such as brushing her teeth. This was something was doing before her in early January. -Kept telling family she is "bored". Family would suggest things for her and she wouldn't do them. Even when family actively tried to engage patient in activities (as opposed to just asking her if she wanted to do something) she would refuse to do them. -she is sleeping for most of the day -the namenda had been started by PCP in early December. DIL not sure it has helped at all -she initially took the celexa 20 mg after hospital discharge. However, family increased it back to the prior dose of 40 mg on February 18 as they felt she was struggling with depression. Patient's had been in the longterm from October to Early January before his passing. Patient was living on her own at that time but did have family coming over every day and a family friend would come over three days a week to help take care of her. At that time, she was doing her own ADLs and participating in IADLs such as cleaning. Advance Care Planning Healthcare Power of Tongue Carrier: yes Financial Power of Tongue Carrier: yes No Known Allergies Current Facility-Administered Medications: acetaminophen (Tylenol) tablet 650 mg, 650 mg, Oral, q6h PRN OR acetaminophen (Tylenol) suppository 650 mg, 650 mg, Rectal, q6h PRN, Angelito Matson MD aspirin chewable tablet 81 mg, 81 mg, Oral, Daily, Angelito Matson MD, 81 mg at 03/02/23 0859 [START ON 03/03/2023] citalopram (CeleXA) tablet 40 mg, 40 mg, Oral, Daily, Regina Yu MD enoxaparin (Lovenox) syringe 40 mg, 40 mg, SubCUTAneous, Daily, Angelito Matson MD, 40 mg at 03/02/23 0859 Influenza Vac A&B SA Adj quadrivalent (Fluad) vaccine 0.5 mL, 0.5 mL, IntraMUSCular, Prior to discharge, Angelito Matson MD melatonin tablet 3 mg, 3 mg, Oral, Nightly PRN, Regina Yu MD memantine (Namenda) tablet 5 mg, 5 mg, Oral, BID, Regina Yu MD [START ON 03/10/2023] memantine (Namenda) tablet 5 mg, 5 mg, Oral, Daily, Regina Yu MD ondansetron ODT (Zofran-ODT) disintegrating tablet 4 mg, 4 mg, Oral, q8h PRN, 4 mg at 02/28/23 1257 OR ondansetron (Zofran) injection 4 mg, 4 mg, IntraVENous, q6h PRN, Angelito Matson MD polyethylene glycol (PEG) 3350 (Miralax) packet 17 g, 17 g, Oral, Daily PRN, Angelito Matson MD senna-docusate sodium (Senokot-S) 8.6-50 MG tablet 2 tablet, 2 tablet, Oral, BID, Mayank Lynn DO, 2 tablet at 03/02/23 0959 tamoxifen (Nolvadex) chemo tablet 20 mg, 20 mg, Oral, Daily, Angelito Matson MD, 20 mg at 03/02/23 0859 Past Medical History: Diagnosis Date Acid reflux Anxiety Breast cancer (HCC) Hyperlipidemia Past Surgical History: Procedure Laterality Date BREAST BIOPSY BREAST LUMPECTOMY 11/21/2019 CATARACT EXTRACTION COLONOSCOPY TUBAL LIGATION WISDOM TOOTH EXTRACTION Social History Tobacco Use Smoking status: Never Smokeless tobacco: Never Substance Use Topics Alcohol use: Not on file Social History Social History Narrative Not on file Family History No family history on file. No family status information on file. Review of Systems Constitutional: Negative for chills and fever. HENT: Negative for rhinorrhea and sore throat. Eyes: Negative for pain and visual disturbance. Respiratory: Negative for cough and shortness of breath. Cardiovascular: Negative for chest pain and leg swelling. Gastrointestinal: Positive for nausea. Negative for abdominal pain, constipation (maybe?) and diarrhea. Genitourinary: Negative for difficulty urinating and dysuria. Musculoskeletal: Negative for arthralgias and myalgias. Neurological: Negative for dizziness, weakness and light-headedness. Psychiatric/Behavioral: Positive for dysphoric mood. Negative for confusion. Functional Status Prior to Admission: (I: Independent, A: Assisted, D: Dependent) ADLs I A D Notes Bathing [] [] [] Normally could take care of ADLs but for the past several weeks she has been requiring cueing and has been resistant to self care Dressing [] [] [] Toileting [] [] [] Transfers [] [] [] Feeding [] [] [] Ambulation [] [] [] Assistive devices: IADLs I A D Telephone [] [x] [] Transportation [] [] [x] Shopping [] [] [x] Meal prep [] [x] [] Housework [] [x] [] Hasn't been contributing for the past several weeks Medications [] [] [x] Family is now administering medications Finances [] [] [x] Objective: BP 124/64 Pulse 68 Temp 36.1 C (97 F) (Temporal) Resp 15 Ht 5' 4" (1.626 m) Wt 161 lb 13.1 oz (73.4 kg) SpO2 95% BMI 27.78 kg/m No intake or output data in the 24 hours ending 03/02/23 1439 Wt Readings from Last 3 Encounters: 02/27/23 161 lb 13.1 oz (73.4 kg) 08/28/22 166 lb 12.8 oz (75.7 kg) 02/24/22 165 lb 14.4 oz (75.3 kg) Physical Exam Constitutional: General: She is not in acute distress. Appearance: She is not ill-appearing. HENT: Head: Normocephalic and atraumatic. Cardiovascular: Rate and Rhythm: Normal rate and regular rhythm. Heart sounds: No murmur heard. No friction rub. No gallop. Pulmonary: Effort: Pulmonary effort is normal. Breath sounds: Normal breath sounds. No decreased breath sounds, wheezing, rhonchi or rales. Comments: Auscultated anteriorly only Abdominal: General: There is no distension. Palpations: Abdomen is soft. Tenderness: There is no abdominal tenderness. There is no guarding or rebound. Musculoskeletal: Right lower leg: No edema. Left lower leg: No edema. Neurological: Mental Status: She is alert. Comments: Oriented to person and place Psychiatric: Attention and Perception: Attention normal. Mood and Affect: Affect is blunt. Behavior: Behavior is cooperative. Cognition and Memory: Cognition is impaired. Memory is impaired. Comments: Says that she feels "sad" sometimes Labs and Imaging: Recent Results (from the past 24 hour(s)) CBC auto differential Collection Time: 03/02/23 5:01 AM Result Value Ref Range Auto WBC 6.7 3.6 - 10.7 10*3/uL RBC 3.74 (L) 3.8 - 5.20 10*6/uL Hemoglobin 11.2 (L) 11.7 - 16.0 g/dL Hematocrit 33.7 (L) 35.0 - 47.0 % MCV 90.1 80.0 - 98.0 fL MCH 30.0 26.0 - 34.0 pg MCHC 33.3 32.0 - 36.0 % RDW 13.2 11.5 - 14.5 % Platelets 174 140 - 440 10*3/uL MPV 7.9 7.4 - 12.4 fL nRBC 0.0 0.0 - 2.0 /100 WBCs Neutrophils Relative 50.9 40.0 - 80.0 % Lymphocytes Relative 37.6 20.0 - 40.0 % Monocytes Relative 8.3 2.0 - 10.0 % Eosinophils Relative 2.4 1.0 - 6.0 % Basophils Relative 0.8 0.0 - 2.0 % Neutrophils Absolute 3.4 1.8 - 7.0 10*3/uL Lymphocytes Absolute 2.5 1.0 - 4.3 10*3/uL Monocytes Absolute 0.6 0.0 - 0.8 10*3/uL Eosinophils Absolute 0.2 0.0 - 0.5 10*3/uL Basophils Absolute 0.1 0.0 - 0.2 10*3/uL Basic metabolic panel Collection Time: 03/02/23 5:01 AM Result Value Ref Range SODIUM 137 135 - 145 mmol/L POTASSIUM 4.1 3.5 - 5.1 mmol/L CHLORIDE 109 (H) 98 - 107 mmol/L CARBON DIOXIDE 24 22 - 30 mmol/L UREA NITROGEN 15 7 - 17 mg/dL CREATININE 0.63 0.52 - 1.04 mg/dL GLUCOSE 94 70 - 100 mg/dL CALCIUM 8.3 (L) 8.4 - 10.4 mg/dL ANION GAP 3 3 - 13 mmol/L eGFR 89.3 >60.0 mL/min/1.73m*2 Lab Results Component Value Date TSH 1.803 02/27/2023 No components found for: "B12" Lab Results Component Value Date VITD25 48 02/04/2023 Reviewed: active problem list, medication list, social history, notes from last encounter, lab results Follow-up: will follow with you Regina Yu MD 03/02/23 2:39 PM [facility] 03-02-2023 Plan of care note The patient is Moderately Stable - Low risk of patient condition declining or worsening The patient's goals for the shift include to go home The clinical goals for the shift include to go home [facility] 03-01-2023 Note Hospitalist Progress Note 03/01/[id number]: Please page me ([phone]) for patient care issues. [phone]: Please page [facility] Hospitalist for any issues. Subjective: Admit Date: 02/27/2023 PCP: MADYSON COLLINS DO Room#: B1-153/B1-153 B Interval History: No overnight issues. Denies chest pain, sob, abdominal pain,, vomiting, diarrhea, constipation, fevers, or chills. Endorses feeling better today. Appetite improving. No nausea or vomiting today. Adult diet Regular 24HR INTAKE/OUTPUT: No intake or output data in the 24 hours ending 03/01/23 1231 Past Medical History: Past Medical History: Diagnosis Date Acid reflux Anxiety Breast cancer (HCC) Hyperlipidemia LABS: CBC: Recent Labs 02/27/23205703/01/23420 WBC 8.4 6.5 RBC 4.38 3.88 HGB 13.2 11.9 HCT 40.0 35.3 MCV 91.2 90.8 RDW 13.2 12.9 PLT 210 154 BMP: Recent Labs 02/27/23205703/01/23 042 NA 137 136 K 3.7 3.4* CL 106 109* CO2 24 23 BUN 19* 13 CREATININE 0.69 0.53 GLUCOSE 99 94 CALCIUM 9.0 8.5 ANIONGAP 7 4 LIVER PROFILE: Recent Labs 02/27/232057 AST 46 ALT 30 BILITOT 0.5 ALKPHOS 58 PROT 7.1 PT/INR: No results for input(s): "PROTIME", "INR" in the last 72 hours. CARDIAC ENZYMES: Recent Labs 02/27/23205702/28/234 TROPONINI <0.012 <0.012 Procalcitonin: No results found for: "PROCAL" COVID-19 PCR: No results for input(s): "COVID19" in the last 72 hours. Objective: Vitals: BP (!) 147/71 Pulse 66 Temp 36.2 ?C (97.2 ?F) (Temporal) Resp 17 Ht 5' 4" (1.626 m) Wt 161 lb 13.1 oz (73.4 kg) SpO2 96% BMI 27.78 kg/m? Pulse Ox: SpO2 Av % Min: 96 % Max: 96 % Supplemental O2: General appearance: No apparent distress, appears stated age and cooperative with exam, frail elderly female in NAD, AAOx2 Respiratory: CTA BL, no wheezing. Cardiovascular: Regular rate and rhythm with no murmur Abdomen: Soft, non-tender, non-distended Skin: Skin color, texture, turgor normal. No rashes or lesions. Distal pulses intact in BL LE. No edema in BL LE. Neurologic: grossly non-focal. Medications: aspirin, 81 mg, Oral, Daily cefTRIAXone, 1,000 mg, IntraVENous, q24h citalopram, 20 mg, Oral, Daily enoxaparin, 40 mg, SubCUTAneous, Daily influenza, 0.5 mL, IntraMUSCular, Prior to discharge tamoxifen, 20 mg, Oral, Daily Assessment Dementia, progressive Failure to thrive Dehydration, poor oral intake CT head negative Geriatrics on consult PT/OT eval and treat IVF given in the ED Nutritional supplementation TID UTI UC pending Rocephin IV HLD Hx of Breast cancer tamoxifen Anxiety/depression Celexa GERD Intermittent nausea PRN zofran Medical Decision Making 02/28/23: patient admitted for failure to thrive, in setting of decreased activity at home, poor oral intake. Dementia that has been progressive. Increased confusion. Recent admission for rapid progressive dementia. Patient refusing PT/OT at home. Found to have UTI, treating with IV abx. Labs otherwise largely unremarkable. Geriatrics on consult. CT head negative. Encourage PO intake. IVF given in the ED. Home meds resumed otherwise. 03/01/23: PT/OT recommending home with [facility]. Labs and vitals stable. Continue IV abx for UTI. Geriatrics eval pending. -am labs, replace lytes prn -increase activity -resume home medications as indicated -DVT prophylaxis: [x] Lovenox [] Heparin [] SCDs [x] Encourage ambulation [] Already on Anticoagulation Anticipated Discharge - Date - 03/02/23 - Location - Home vs SNF - Pending the following - PT/OT, improvement in weakness and nausea, , geriatrics eval Toxic drug monitoring/narrow therapeutic index drug monitoring : # Drug name : # Route administered : # Method of monitoring : Extended Emergency Contact Information Primary Emergency Contact: Renetta Rosenthal Relation: Child Secondary Emergency Contact: Ted Domínguez Relation: Child Mayank Lynn DO Division of Hospitalist Medicine Inpatient Medical Services/[facility] PAGER: Lydia [facility] 03-01-2023 Note OCCUPATIONAL THERAPY [facility] Initial Evaluation Name/MRN: Albina Brown ([id number]) Evaluation Date: 03/01/2023 Date of : 1940 Admission Date: 02/27/2023 7:50 PM Age: 82 y.o. Room[facility]Bed: [facility] B Discharge Recommendation: Home with Home OT, Home with 24/7 Assist, and if pt does not have 24 hr SUP available, may benefit from SNF for safety Equipment Needed: none Assessment IMPRESSION: Pt admitted 02/27 with lethargy. Pt found to have UTI and failure to thrive. Pt is independent with ADLs and functional mobility without device at baseline. At time of eval, pt is SBA-CGA with ADLs and CGA with functional mobility without device. Pt is limited by cognition, safety, weakness, balance deficits, and fatigue. Pt is functioning below baseline and would benefit from skilled OT services to maximize safety and independence with ADLs and functional mobility. Rec HHC and 24 hr SUP. If 24 hr SUP is not available, pt would benefit from SNF for safety. Performance Deficits /Impairments: Decreased Functional Mobility, Decreased ADL status, Decreased Strength, Decreased Safety Awareness, Decreased Cognition, Decreased Endurance, Decreased Balance, and Decreased High Level IADLs Prognosis: Good Decision Making: Medium Complexity Subjective Pt supine in bed at arrival. Pt ok to see per RN. No lines or tubes. Pt was pleasant and agreeable to OT eval. Pain: Pt denies any current pain. Past Medical History: Past Medical History: Diagnosis Date Acid reflux Anxiety Breast cancer (HCC) Hyperlipidemia Past Surgical History: Past Surgical History: Procedure Laterality Date BREAST BIOPSY BREAST LUMPECTOMY 11/21/2019 CATARACT EXTRACTION COLONOSCOPY TUBAL LIGATION WISDOM TOOTH EXTRACTION Admission Diagnosis: Patient Active Problem List Diagnosis Date Noted Failure to thrive in adult 02/27/2023 Altered mental status 02/05/2023 Dementia (HCC) 02/04/2023 At risk for delirium 02/04/2023 Anxiety 02/04/2023 Malignant neoplasm of lower-outer quadrant of left breast of female, estrogen receptor positive (HCC) 12/15/2019 Medical Precautions: No active isolations Proper PPE donned/doffed in accordance with facility standards. Fall Risk: Jim Fall Risk Score: 85 (High Risk) Precautions/Restrictions: N/A Family/Caregiver Present: none Overall Cognitive Status: Exceptions - Attention span: attends with cues to redirect - Memory: decreased short term memory - Safety judgement: decreased awareness of need for assistance and decreased awareness of need for safety - Problem solving: decreased awareness of errors - Insights: decreased awareness of deficits Overall Orientation Status: Oriented to Place, Oriented to Person, Disoriented to Situation, and Disoriented to Time Social/Functional History Patient admitted from home. Lives With: Spouse Type of Home: mobile home Home Layout: Single Level Home Home Access: Stairs to Enter without Rails (# of stairs: 4) Bathroom Shower/Tub: Walk in Shower Toilet: Standard Home Equipment: none Homemaking Responsibilities: Independent Receives Help From: None Active Transitional Studies Instructor: Yes Prior Level of Function ADL Assistance: Independent Ambulation Assistance: Independent Transfer Assistance: Independent Objective ADLs Grooming: SBA LE Dressing: Contact Guard Toileting: Contact Guard Pt incontinent of urine. Pt able to thread BLE into clean briefs with SBA. Pt completed pericare with SBA in sitting. Pt required CGA for managing briefs up to hips d/t mild balance deficits. Pt required SBA and verbal cues for problem solving and recall of task with oral hygiene and hand hygiene standing at sink. After completing ADLs and ambulation, pt reporting she wanted to complete oral hygiene, required cues to recall having already completed. Upper Extremity Assessment AROM: WFL PROM: WFL Strength: WFL mild weakness Vision: wears glasses at all times and and are being used during the eval Hearing: normal Bed Mobility Supine to sit: SBA Sit to supine: SBA Scooting: SBA Pt completed with use of bed rails and HOB elevated. Denies dizziness. SBA for safety and verbal cues for attending to task. Transfers/Functional Mobility Sit to stand: Contact Guard Stand to sit: Contact Guard Toilet: Contact Guard Functional mobility: Contact Guard Pt standing from EOB without device with CGA. Pt ambulated to/from bathroom and functional household distance in hallway with CGA for balance d /t mild unsteadiness. No true LOB noted. Pt required CGA for elevation and controlled descent at toilet. Device(s) used: none AM-PAC AM-PAC Inpatient Daily Activity Raw Score: 19 ADL Inpatient CMS G-Code Modifier: CK Plan Pt would benefit from skilled acute OT services to address Strengthening, Balance Training, Functional Mobility Training, Endurance Training, Cognitive Reorientation, Pain Management, Safe (more content not included)... [facility] 03-01-2023 Note PHYSICAL THERAPY [facility] Initial Evaluation Name/MRN: Albina Brown ([id number]) Evaluation Date: 03/01/2023 Date of : 1940 Admission Date: 02/27/2023 7:50 PM Age: 82 y.o. Room/Bed: B1-153/B1-153 B Discharge Recommendation: Home with Home PT and Home with Assist PRN Equipment Needed: none Assessment IMPRESSION: Albina presents with impaired cognition, posture, strength, and balance with associated functional limitations to transfers, ambulation, and stairs requiring up to minimum assistance. She is a fall risk and would benefit from acute PT to address her functional limitations. Diagnosis: Failure to thrive in adult. Prognosis: good Performance Deficits /Impairments: Decreased Functional Mobility, Decreased Strength, Decreased Cognition, Decreased Balance, and Decreased Posture Decision Making: Medium Complexity Subjective Albina was agreeable to PT evaluation. Pain: Pt denies any current pain. Past Medical History: Past Medical History: Diagnosis Date Acid reflux Anxiety Breast cancer (HCC) Hyperlipidemia Past Surgical History: Past Surgical History: Procedure Laterality Date BREAST BIOPSY BREAST LUMPECTOMY 11/21/2019 CATARACT EXTRACTION COLONOSCOPY TUBAL LIGATION WISDOM TOOTH EXTRACTION Admission Diagnosis: Patient Active Problem List Diagnosis Date Noted Failure to thrive in adult 02/27/2023 Altered mental status 02/05/2023 Dementia (HCC) 02/04/2023 At risk for delirium 02/04/2023 Anxiety 02/04/2023 Malignant neoplasm of lower-outer quadrant of left breast of female, estrogen receptor positive (HCC) 12/15/2019 Medical Precautions: No active isolations Proper PPE donned/doffed in accordance with facility standards. Fall Risk: Jim Fall Risk Score: 85 (High Risk) Precautions/Restrictions: N/A Family/Caregiver Present: none Overall Cognitive Status: Exceptions - Safety judgement: decreased awareness of need for assistance - Insights: decreased awareness of deficits - Sequencing: requires cues for some Overall Orientation Status: Oriented to Place and Oriented to Person Vision: wears glasses at all times and and are being used during the eval Hearing: normal Social/Functional History Patient admitted from home. Lives With: Spouse Type of Home: mobile home Home Layout: Single Level Home Home Access: Stairs to Enter without Rails (# of stairs: 4) Bathroom Shower/Tub: Walk in Shower Toilet: Standard Home Equipment: none Homemaking Responsibilities: Independent Receives Help From: None Active Transitional Studies Instructor: Yes Prior Level of Function ADL Assistance: Independent Ambulation Assistance: Independent Transfer Assistance: Independent Objective Lower Extremity Assessment AROM: WFL PROM: WFL Strength: Exceptions: 4/5 Bed Mobility: Supine to sit: SBA Sit to supine: SBA Scooting: SBA Transfers Sit to stand: SBA Stand to sit: SBA Ambulation Ambulation 1 Assistive device(s) used: none Assist level: Min Assist Distance (ft): 75 Quality of gait: slow delmer, postural sway Balance: Good - Posture: fair Sitting - Static: Modified Independent Sitting - Dynamic: Modified Independent Standing - Static: Modified Independent Standing - Dynamic: Modified Independent Stairs Stairs 1 Assistive device(s) used: none Assist level: Hand Held Assist # of steps: 5 Rails: right Additional factors: non-reciprocal going up Outcome Measures AM-PAC How much HELP from another person do you currently need Turning from your back to your side while in a flat bed without using bedrails?: None Moving from lying on your back to sitting on the side of a flat bed without using bedrails?: None Moving to and from a bed to a chair (including a wheelchair)?: None Standing up from a chair using your arms (wheelchair or bedside chair)?: None Walking in a hospital room?: A Little Stair climbing assessed?: Yes Climbing 3-5 steps with a railing?+: A Little AM-PAC Inpatient Mobility Raw Score : 22 AM-PAC Inpatient Mobility Raw Score (No Stairs) : 19 -M Plan Pt would benefit from skilled acute PT services to address Strengthening, Balance Training, Functional Mobility Training, Gait Training, Stair Training, Cognitive Reorientation, and Safety Education and Training. Frequency: 4 visits during current hospital admission or until additional recommendations are made Barriers: Cognitive deficit Safety/Education Safety Safety Devices in place: call light within reach, left in bed, bed alarm in place, patient at risk for falls, and nurse notified Restraints: No Education Education Given To: patient Education Provided: PT Role, PT Goals, and Plan of Care Education Method: Verbal Barriers to Learning: Cognition Education Outcome: Verbalized Understanding Goals Patient Stated Goal: Get back home. Encounter Problems Encounter Problems (Active) Mobility Patient will ambulate (more content not included)... [facility] 03-01-2023 Plan of care note The patient is Moderately Stable - Low risk of patient condition declining or worsening The patient's goals for the shift include to go home The clinical goals for the shift include Problem: Knowledge Deficit Goal: Patient/family/caregiver demonstrates understanding of disease process, treatment plan, medications, and discharge instructions Outcome: Not Progressing [facility] 02-28-2023 Note Hospitalist Progress Note 02/28/2023 [phone]: Please page me ([phone]) for patient care issues. [phone]: Please page [facility] Hospitalist for any issues. Subjective: Admit Date: 02/27/2023 PCP: MADYSON COLLINS DO Room#: B1-153/B1-153 B Interval History: No overnight issues. Denies chest pain, sob, abdominal pain,, vomiting, diarrhea, constipation, fevers, or chills. Endorses body aches, weakness, decreased appetite. Adult diet Regular 24HR INTAKE/OUTPUT: No intake or output data in the 24 hours ending 02/28/23 1221 Past Medical History: Past Medical History: Diagnosis Date Acid reflux Anxiety Breast cancer (HCC) Hyperlipidemia LABS: CBC: Recent Labs 02/27/232057 WBC 8.4 RBC 4.38 HGB 13.2 HCT 40.0 MCV 91.2 RDW 13.2 PLT 210 BMP: Recent Labs 02/27/232057 NA 137 K 3.7 CL 106 CO2 24 BUN 19* CREATININE 0.69 GLUCOSE 99 CALCIUM 9.0 ANIONGAP 7 LIVER PROFILE: Recent Labs 02/27/232057 AST 46 ALT 30 BILITOT 0.5 ALKPHOS 58 PROT 7.1 PT/INR: No results for input(s): "PROTIME", "INR" in the last 72 hours. CARDIAC ENZYMES: Recent Labs 02/27/23205702/28/23 0444 TROPONINI <0.012 <0.012 Procalcitonin: No results found for: "PROCAL" COVID-19 PCR: No results for input(s): "COVID19" in the last 72 hours. Objective: Vitals: BP (!) 143/81 (BP Location: Right arm, Patient Position: Lying) Pulse 74 Temp 37.2 ?C (99 ?F) (Temporal) Resp 18 Ht 5' 4" (1.626 m) Wt 161 lb 13.1 oz (73.4 kg) SpO2 98% BMI 27.78 kg/m? Pulse Ox: SpO2 Av % Min: 95 % Max: 98 % Supplemental O2: General appearance: No apparent distress, appears stated age and cooperative with exam, frail elderly female in NAD, AAOx1-2 Respiratory: CTA BL Cardiovascular: Regular rate and rhythm with no murmur Abdomen: Soft, non-tender, non-distended Skin: Skin color, texture, turgor normal. No rashes or lesions. Distal pulses intact in BL LE. No edema in BL LE. Neurologic: grossly non-focal. Medications: aspirin, 81 mg, Oral, Daily cefTRIAXone, 1,000 mg, IntraVENous, q24h citalopram, 20 mg, Oral, Daily enoxaparin, 40 mg, SubCUTAneous, Daily influenza, 0.5 mL, IntraMUSCular, Prior to discharge tamoxifen, 20 mg, Oral, Daily Assessment Dementia, progressive Failure to thrive Dehydration, poor oral intake CT head negative Geriatrics on consult PT/OT eval and treat IVF given in the ED Nutritional supplementation TID UTI UC pending Rocephin IV HLD Hx of Breast cancer tamoxifen Anxiety/depression Celexa GERD Intermittent nausea PRN zofran Medical Decision Making 02/28/23: patient admitted for failure to thrive, in setting of decreased activity at home, poor oral intake. Dementia that has been progressive. Increased confusion. Recent admission for rapid progressive dementia. Patient refusing PT/OT at home. Found to have UTI, treating with IV abx. Labs otherwise largely unremarkable. Geriatrics on consult. CT head negative. Encourage PO intake. IVF given in the ED. Home meds resumed otherwise. -am labs, replace lytes prn -increase activity -resume home medications as indicated -DVT prophylaxis: [x] Lovenox [] Heparin [] SCDs [x] Encourage ambulation [] Already on Anticoagulation Anticipated Discharge - Date - 03/02/23 - Location - Home vs SNF - Pending the following - PT/OT, improvement in weakness and nausea, IVF, geriatrics eval Toxic drug monitoring/narrow therapeutic index drug monitoring : # Drug name : # Route administered : # Method of monitoring : Extended Emergency Contact Information Primary Emergency Contact: Renetta Rosenthal Relation: Child Secondary Emergency Contact: SangTed Relation: Child Mayank Lynn DO Division of Hospitalist Medicine Inpatient Medical Services/[facility] PAGER: Lydia [facility] 02-28-2023 Consult note Associated Order (s): IP CONSULT TO DIETITIAN Nutrition Assessment Type and Reason for Visit: Initial, Consult (Poor PO) Nutrition Recommendations/Plan: Continue with Adult diet Regular Initiate Ensure Plus strawberry BID per MNT protocol. Ensure Plus provides 350 kcals and 13 g of protein per 8 oz serving. Please document pt's PO intakes via flowsheet to accurately assess PO intake adequacy. Vitamin D was checked last month and WNL. Suggest recheck with decreased PO and decreased activity for 1 mo. Monitor intakes, weights, and labs weekly. RD will follow. Malnutrition Assessment: Malnutrition Status: At risk for malnutrition (Comment) (decreased PO) Context: Social/Environmental Circumstances Findings of the 6 clinical characteristics of malnutrition: Energy Intake: 50% or less estimated energy requirements for 1 month or longer (Pt's a month ago.) Weight Loss: (3% wt loss in 6 mo) Body Fat Loss: Unable to assess Muscle Mass Loss: Unable to assess Fluid Accumulation: No significant fluid accumulation Drug Safety Scientist Strength: Not Performed Nutrition Assessment: Pt was admitted with FTT, nausea, AMS, and lethargy. Family has noticed that pt has not been eating, drinking, and sleeping for 20+ hours a day. Family has been having to force her to eat/drink prior to admission. Pt reportedly lost her a month ago. This AM, pt was pleasant, reports she has an appetite, but is a poor historian. Pt reported that Estimated Daily Nutrient Needs: Energy Requirements Based On: Kcal/kg Weight Used for Energy Requirements: Point Weight for Energy Calculation (kg): 55 kg Total Energy Requirements (kcals/day): 6869-8104 kcals (25-30 kcals/kg) Weight Used for Protein Requirements: Point Weight in Kg Used for Protein Requirements: 55 kg Estimated Total Protein (g/day): 55-66 (1-1.2g/kg) Estimated Daily Total Fluid (ml/day): 8974-8014 ml/day or per MD Nutrition Related Findings: no edema, BUN 19 Wound Type: None Current Nutrition Therapies: Adult diet Regular Current Oral Intake Average Meal Intake: (Pt had not eaten breakfast yet; decreased PO CASING TRIMMER) Average Supplements Intake: None Ordered Anthropometric Measures: Height: 162.6 cm (5' 4") Current Body Weight: 73 kg (161 lb) Weight Source: Bed Scale Admission Body Weight: 73 kg (161 lb) Usual Body Weight: 75.3 kg (166 lb) (08/28/22) % Weight Change (Calculated): -3 Point Body Weight (lbs) (Calculated): 120 lbs Point Body Weight (Kg) (Calculated): 55 kg % Point Body Weight (Calculated): 134.2 % BMI (kg/m2) (Calculated): 27.6 Weight Adjustment For: No Adjustment BMI Categories: Overweight (BMI 25.0-29.9) Nutrition Diagnosis: Inadequate oral intake, Inadequate protein intake related to psychological cause or life stress as evidenced by poor intake prior to admission Nutrition Interventions: Nutrition Education/Counseling: No recommendation at this time Coordination of Nutrition Care: Continue to monitor while inpatient Plan of Care discussed with: Patient Goals: Goals: PO intake 75% or greater, by next RD assessment Nutrition Monitoring and Evaluation: Behavioral-Environmental Outcomes: None Identified Food/Nutrient Intake Outcomes: Diet Advancement/Tolerance, Food and Nutrient Intake, Supplement Intake Physical Signs/Symptoms Outcomes: Biochemical Data, GI Status, Fluid Status or Edema, Nutrition Focused Physical Findings, Skin, Weight Discharge Planning: Continue current diet, Continue Oral Nutrition Supplement Belén Garcia RD Contact: *[phone] or via Secure Chat [facility] 02-28-2023 Note Sinus rhythm Borderline left axis deviation Abnormal R-wave progression, early transition Compared to ECG 11/18/2019 12:36:03 No significant changes Electronically Signed On 02-28-2023 7:03:50 EST by Mayankrashard Pineda [facility] 02-28-2023 Note Sinus rhythm Borderline left axis deviation Abnormal R-wave progression, early transition Compared to ECG 11/18/2019 12:36:03 No significant changes Electronically Signed On 02-28-2023 7:03:50 EST by Mayankrashard Pineda [facility] 02-28-2023 Note IMPRESSION: Sinus rhythm Borderline left axis deviation Abnormal R-wave progression, early transition Compared to ECG 11/18/2019 12:36:03 No significant changes Electronically Signed On 02-28-2023 7:03:50 EST [facility] Plan of care note Problem: Potential for Compromised Skin Integrity Goal: Skin Integrity is Maintained or Improved Outcome: Progressing Flowsheets (Taken 02/28/2023 0527) Skin integrity is maintained or improved: Assess and monitor skin integrity The patient is Moderately Stable - Low risk of patient condition declining or worsening The patient's goals for the shift include to go home The clinical goals for the shift include to go home [facility] 02-27-2023 History and physical note Images from the original note were not included. Attending History and Physical Admit Date: 02/27/2023 PCP: MADYSON COLLINS DO CHIEF COMPLAINT: Patient presents with Nausea Altered Mental Status Lethargy Pt brought in by [facility] from home for increased lethargy, per family pt has been sleeping for 20 plus hours a day. Pt only complains of nausea with no vomiting and a headache. 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 HISTORY OF PRESENT ILLNESS: Albina is a 82 y.o. female with past medical history below who presented to ED with change in mental status. Pt is a poor historian and unable to provide any details due to underlying dementia. Family at bedside, reports that she is progressively declining with increased confusion, poor appetite and decreased activities over the past 2 weeks. Family reports that she has been sleeping for 20+ hours daily although did lose her a month ago. Was seen in the hospital and admitted at the time and diagnosed with rapid onset dementia. Family reports that they have to force her to drink fluids and has not had any p.o. intake in the last 2 days. She refuses her physical therapy and even her home health nursing. Patient is alert to her self and denies any other complaints aside from a slight headache that started while she arrived. Will admit for further evaluation and management. Past Medical History: Past Medical History: Diagnosis Date Acid reflux Anxiety Breast cancer (HCC) Hyperlipidemia Past Surgical History: Past Surgical History: Procedure Laterality Date BREAST BIOPSY BREAST LUMPECTOMY 11/21/2019 CATARACT EXTRACTION COLONOSCOPY TUBAL LIGATION WISDOM TOOTH EXTRACTION Social History: Social History Socioeconomic History Marital status: Spouse name: Not on file Number of children: Not on file Years of education: Not on file Highest education level: Not on file Occupational History Not on file Tobacco Use Smoking status: Never Smokeless tobacco: Never Substance and Sexual Activity Alcohol use: Not on file Drug use: Not on file Sexual activity: Not on file Other Topics Concern Not on file Social History Narrative Not on file Social Determinants of Health Financial Resource Strain: Not on file Food Insecurity: Not on file Transportation Needs: Not on file Physical Activity: Not on file Stress: Not on file Social Connections: Not on file Intimate Partner Violence: Not on file Housing Stability: Not on file Family History: No family history on file. Medications Prior to Admission: No current facility-administered medications on file prior to encounter. Current Outpatient Medications on File Prior to Encounter Medication Sig Dispense Refill aspirin 81 MG chewable tablet Chew 81 mg in the morning. citalopram (CeleXA) 20 MG tablet citalopram (CeleXA) 20 MG tablet Take 1 tablet (20 mg) by mouth daily. Do not start before February 18, 2023. 30 tablet 0 tamoxifen (Nolvadex) 20 MG tablet Take 1 tablet (20 mg total) by mouth daily. 90 tablet 3 Allergies: No Known Allergies REVIEW OF SYSTEMS: As per HPI Vitals: BP (!) 174/69 (BP Location: Left arm, Patient Position: Sitting) Pulse 65 Temp 37 C (98.6 F) (Oral) Resp 17 Ht 5' 6" (1.676 m) Wt 180 lb (81.6 kg) SpO2 98% BMI 29.05 kg/m BMI Classification: Pulse Ox: SpO2 Av % Min: 98 % Max: 98 % Supplemental O2: PHYSICAL EXAM: Physical Exam HEENT: PERRLA, EOMI Neck: supple, nontender Chest: BLAE+, clear CVS: S1+, S2+, no m/r/g Abdomen: soft, nondistended, nontender, BS+ SWEATBAND DRUMMER: Awake and alert, oriented to self, motor and sensory grossly intact Ext: pulse 2+, no edema DATA: CBC: Recent Labs 02/27/232057 WBC 8.4 RBC 4.38 HGB 13.2 HCT 40.0 MCV 91.2 RDW 13.2 PLT 210 BMP: Recent Labs 02/27/232057 NA 137 K 3.7 CL 106 CO2 24 BUN 19* CREATININE 0.69 GLUCOSE 99 CALCIUM 9.0 ANIONGAP 7 LIVER PROFILE: Recent Labs 02/27/232057 AST 46 ALT 30 BILITOT 0.5 ALKPHOS 58 PROT 7.1 PT/INR: No results for input(s): "PROTIME", "INR" in the last 72 hours. CARDIAC ENZYMES: Recent Labs 02/27/232057 TROPONINI <0.012 Procalcitonin: No results found for: "PROCAL" Urine Culture: Results for orders placed or performed during the hospital encounter of 02/04/23 Urine culture Specimen: Urine, Clean Catch Result Value Ref Range Urine Culture Normal urogenital sonal present COVID-19 PCR: No results for input(s): "COVID19" in the last 72 hours. I reviewed: [x] laboratory results [x] radiographic results At the time of today's encounter. Pt was advised of the results. IMPRESSION: # Dementia # Failure to thrive - CT head: No acute intracranial process. - CXR: Large hiatal hernia - PT/OT/SW evaluation for possible placement - Geriatric consult Medical Decision Making: -Discussed with ED provider and agree with their plan for admission -PT/OT eval/increase activity -am labs, replace lytes prn -vitals per routine -home meds as ordered -DVT prophylaxis: [x] Lovenox [] Heparin [] SCDs [x] Encourage ambulation [] Already on Anticoagulation Extended Emergency Contact Information Primary Emergency Contact: Renetta Rosenthal Relation: Child Secondary Emergency Contact: Ted Domínguez Relation: Child Code status: Prior -see below for additional orders, further recommendations to follow Orders Placed This Encounter Procedures CT head wo IV contrast XR chest 1 view CBC auto differential Comprehensive metabolic panel Complete Urinalysis with reflex to Culture Troponin, with Serial Reflex TSH Complete Urinalysis Troponin I Troponin I Vital Signs ECG 12 lead Insert peripheral IV Admit to inpatient Please forward a copy of this H&P to the patient's PCP. Thank you. [employer] Phone: 02-27-2023 Note Attending History an d Physical Admit Date: 02/27/2023 PCP: MADYSON COLLINS DO CHIEF COMPLAINT: Patient presents with Nausea Altered Mental Status Lethargy Pt brought in by [facility] from home for increased lethargy, per family pt has been sleeping for 20 plus hours a day. Pt only complains of nausea with no vomiting and a headache. 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 HISTORY OF PRESENT ILLNESS: Albina is a 82 y.o. female with past medical history below who presented to ED with change in mental status. Pt is a poor historian and unable to provide any details due to underlying dementia. Family at bedside, reports that she is progressively declining with increased confusion, poor appetite and decreased activities over the past 2 weeks. Family reports that she has been sleeping for 20+ hours daily although did lose her a month ago. Was seen in the hospital and admitted at the time and diagnosed with rapid onset dementia. Family reports that they have to force her to drink fluids and has not had any p.o. intake in the last 2 days. She refuses her physical therapy and even her home health nursing. Patient is alert to her self and denies any other complaints aside from a slight headache that started while she arrived. Will admit for further evaluation and management. Past Medical History: Past Medical History: Diagnosis Date Acid reflux Anxiety Breast cancer (HCC) Hyperlipidemia Past Surgical History: Past Surgical History: Procedure Laterality Date BREAST BIOPSY BREAST LUMPECTOMY 11/21/2019 CATARACT EXTRACTION COLONOSCOPY TUBAL LIGATION WISDOM TOOTH EXTRACTION Social History: Social History Socioeconomic History Marital status: Spouse name: Not on file Number of children: Not on file Years of education: Not on file Highest education level: Not on file Occupational History Not on file Tobacco Use Smoking status: Never Smokeless tobacco: Never Substance and Sexual Activity Alcohol use: Not on file Drug use: Not on file Sexual activity: Not on file Other Topics Concern Not on file Social History Narrative Not on file Social Determinants of Health Financial Resource Strain: Not on file Food Insecurity: Not on file Transportation Needs: Not on file Physical Activity: Not on file Stress: Not on file Social Connections: Not on file Intimate Partner Violence: Not on file Housing Stability: Not on file Family History: No family history on file. Medications Prior to Admission: No current facility-administered medications on file prior to encounter. Current Outpatient Medications on File Prior to Encounter Medication Sig Dispense Refill aspirin 81 MG chewable tablet Chew 81 mg in the morning. citalopram (CeleXA) 20 MG tablet citalopram (CeleXA) 20 MG tablet Take 1 tablet (20 mg) by mouth daily. Do not start before February 18, 2023. 30 tablet 0 tamoxifen (Nolvadex) 20 MG tablet Take 1 tablet (20 mg total) by mouth daily. 90 tablet 3 Allergies: No Known Allergies REVIEW OF SYSTEMS: As per HPI Vitals: BP (!) 174/69 (BP Location: Left arm, Patient Position: Sitting) Pulse 65 Temp 37 ?C (98.6 ?F) (Oral) Resp 17 Ht 5' 6" (1.676 m) Wt 180 lb (81.6 kg) SpO2 98% BMI 29.05 kg/m? BMI Classification: Pulse Ox: SpO2 Av % Min: 98 % Max: 98 % Supplemental O2: PHYSICAL EXAM: Physical Exam HEENT: PERRLA EOMI Neck: supple, nontender Chest: BLAE+, clear CVS: S1+, S2+, no m/r/g Abdomen: soft, nondistended, nontender, BS+ SWEATBAND DRUMMER: Awake and alert, oriented to self, motor and sensory grossly intact Ext: pulse 2+, no edema DATA: CBC: Recent Labs 02/27/232057 WBC 8.4 RBC 4.38 HGB 13.2 HCT 40.0 MCV 91.2 RDW 13.2 PLT 210 BMP: Recent Labs 02/27/232057 NA 137 K 3.7 CL 106 CO2 24 BUN 19* CREATININE 0.69 GLUCOSE 99 CALCIUM 9.0 ANIONGAP 7 LIVER PROFILE: Recent Labs 02/27/232057 AST 46 ALT 30 BILITOT 0.5 ALKPHOS 58 PROT 7.1 PT/INR: No results for input(s): "PROTIME", "INR" in the last 72 hours. CARDIAC ENZYMES: Recent Labs 02/27/232057 TROPONINI <0.012 Procalcitonin: No results found for: "PROCAL" Urine Culture: Results for orders placed or performed during the hospital encounter of 02/04/23 Urine culture Specimen: Urine, Clean Catch Result Value Ref Range Urine Culture Normal urogenital sonal present COVID-19 PCR: No results for input(s): "COVID19" in the last 72 hours. I reviewed: [x] laboratory results [x] radiographic results At the time of today's encounter. Pt was advised of the results. IMPRESSION: # Dementia # Failure to thrive - CT head: No acute intracranial process. - CXR: Large hiatal hernia - PT/OT/SW evaluation for possible placement - Geriatric consult Medical Decision Making: -Discussed with ED provider and agree with their plan for admission (more content not included)... [facility] 02-27-2023 History and physical note Images from the original note were not included. Attending History and Physical Admit Date: 02/27/2023 PCP: MADYSON COLLINS DO CHIEF COMPLAINT: Patient presents with Nausea Altered Mental Status Lethargy Pt brought in by [facility] from home for increased lethargy, per family pt has been sleeping for 20 plus hours a day. Pt only complains of nausea with no vomiting and a headache. 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 HISTORY OF PRESENT ILLNESS: Albina is a 82 y.o. female with past medical history below who presented to ED with change in mental status. Pt is a poor historian and unable to provide any details due to underlying dementia. Family at bedside, reports that she is progressively declining with increased confusion, poor appetite and decreased activities over the past 2 weeks. Family reports that she has been sleeping for 20+ hours daily although did lose her a month ago. Was seen in the hospital and admitted at the time and diagnosed with rapid onset dementia. Family reports that they have to force her to drink fluids and has not had any p.o. intake in the last 2 days. She refuses her physical therapy and even her home health nursing. Patient is alert to her self and denies any other complaints aside from a slight headache that started while she arrived. Will admit for further evaluation and management. Past Medical History: Past Medical History: Diagnosis Date Acid reflux Anxiety Breast cancer (HCC) Hyperlipidemia Past Surgical History: Past Surgical History: Procedure Laterality Date BREAST BIOPSY BREAST LUMPECTOMY 11/21/2019 CATARACT EXTRACTION COLONOSCOPY TUBAL LIGATION WISDOM TOOTH EXTRACTION Social History: Social History Socioeconomic History Marital status: Spouse name: Not on file Number of children: Not on file Years of education: Not on file Highest education level: Not on file Occupational History Not on file Tobacco Use Smoking status: Never Smokeless tobacco: Never Substance and Sexual Activity Alcohol use: Not on file Drug use: Not on file Sexual activity: Not on file Other Topics Concern Not on file Social History Narrative Not on file Social Determinants of Health Financial Resource Strain: Not on file Food Insecurity: Not on file Transportation Needs: Not on file Physical Activity: Not on file Stress: Not on file Social Connections: Not on file Intimate Partner Violence: Not on file Housing Stability: Not on file Family History: No family history on file. Medications Prior to Admission: No current facility-administered medications on file prior to encounter. Current Outpatient Medications on File Prior to Encounter Medication Sig Dispense Refill aspirin 81 MG chewable tablet Chew 81 mg in the morning. citalopram (CeleXA) 20 MG tablet citalopram (CeleXA) 20 MG tablet Take 1 tablet (20 mg) by mouth daily. Do not start before February 18, 2023. 30 tablet 0 tamoxifen (Nolvadex) 20 MG tablet Take 1 tablet (20 mg total) by mouth daily. 90 tablet 3 Allergies: No Known Allergies REVIEW OF SYSTEMS: As per HPI Vitals: BP (!) 174/69 (BP Location: Left arm, Patient Position: Sitting) Pulse 65 Temp 37 C (98.6 F) (Oral) Resp 17 Ht 5' 6" (1.676 m) Wt 180 lb (81.6 kg) SpO2 98% BMI 29.05 kg/m BMI Classification: Pulse Ox: SpO2 Av % Min: 98 % Max: 98 % Supplemental O2: PHYSICAL EXAM: Physical Exam HEENT: PERRLA, EOMI Neck: supple, nontender Chest: BLAE+, clear CVS: S1+, S2+, no m/r/g Abdomen: soft, nondistended, nontender, BS+ SWEATBAND DRUMMER: Awake and alert, oriented to self, motor and sensory grossly intact Ext: pulse 2+, no edema DATA: CBC: Recent Labs 02/27/232057 WBC 8.4 RBC 4.38 HGB 13.2 HCT 40.0 MCV 91.2 RDW 13.2 PLT 210 BMP: Recent Labs 02/27/232057 NA 137 K 3.7 CL 106 CO2 24 BUN 19* CREATININE 0.69 GLUCOSE 99 CALCIUM 9.0 ANIONGAP 7 LIVER PROFILE: Recent Labs 02/27/232057 AST 46 ALT 30 BILITOT 0.5 ALKPHOS 58 PROT 7.1 PT/INR: No results for input(s): "PROTIME", "INR" in the last 72 hours. CARDIAC ENZYMES: Recent Labs 02/27/232057 TROPONINI <0.012 Procalcitonin: No results found for: "PROCAL" Urine Culture: Results for orders placed or performed during the hospital encounter of 02/04/23 Urine culture Specimen: Urine, Clean Catch Result Value Ref Range Urine Culture Normal urogenital sonal present COVID-19 PCR: No results for input(s): "COVID19" in the last 72 hours. I reviewed: [x] laboratory results [x] radiographic results At the time of today's encounter. Pt was advised of the results. IMPRESSION: # Dementia # Failure to thrive - CT head: No acute intracranial process. - CXR: Large hiatal hernia - PT/OT/SW evaluation for possible placement - Geriatric consult Medical Decision Making: -Discussed with ED provider and agree with their plan for admission -PT/OT eval/increase activity -am labs, replace lytes prn -vitals per routine -home meds as ordered -DVT prophylaxis: [x] Lovenox [] Heparin [] SCDs [x] Encourage ambulation [] Already on Anticoagulation Extended Emergency Contact Information Primary Emergency Contact: Renetta Rosenthal Relation: Child Secondary Emergency Contact: Ted Domínguez Relation: Child Code status: Prior -see below for additional orders, further recommendations to follow Orders Placed This Encounter Procedures CT head wo IV contrast XR chest 1 view CBC auto differential Comprehensive metabolic panel Complete Urinalysis with reflex to Culture Troponin, with Serial Reflex TSH Complete Urinalysis Troponin I Troponin I Vital Signs ECG 12 lead Insert peripheral IV Admit to inpatient Please forward a copy of this H&P to the patient's PCP. Thank you. documented in this encounter [facility] 02-27-2023 Emergency department Note Guided family back MILLI Christian 02/27/232005 [facility] 02-27-2023 Emergency department Note Guided family back MILLI Christian 02/27/232005 Introduced myself as pt liaison explained role and provided support to daughter and family in lobby , pt arrived via EMS. MILLI Christian 02/27/231955 EMERGENCY DEPARTMENT ENCOUNTER Pt Name: Albina Brown Birthdate 1940 Date of evaluation: 02/27/2023 ED Provider: Humphrey Velasquez MD CHIEF COMPLAINT Chief Complaint Patient presents with Nausea Altered Mental Status Lethargy Pt brought in by [facility] from home for increased lethargy, per family pt has been sleeping for 20 plus hours a day. Pt only complains of nausea with no vomiting and a headache. 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 HISTORY OF PRESENT ILLNESS I wore appropriate PPE for the entirety of this encounter. HPI Albina Brown is a 82 y.o. person who presents to the emergency department with concern for increased lethargy. Patient is coming from home who reports that she lives with family members although family member state that she lives by herself and is not taking care of herself. States that she has been sleeping for 20+ hours daily although did lose her a month ago. Was seen in the hospital and admitted at the time and diagnosed with rapid onset dementia. Family reports that they have to force her to drink fluids and has not had any p.o. intake in the last 2 days. She refuses her physical therapy and even her home health nursing. Patient is alert to her self and denies any other complaints aside from a slight headache that started while she arrived Nursing Notes were reviewed. Limitations to history: Patient mental status Outside historians: Family members REVIEW OF SYSTEMS Review of Systems Constitutional: Positive for activity change, appetite change and fatigue. Neurological: Positive for headaches. Psychiatric/Behavioral: Positive for confusion. PAST MEDICAL HISTORY Past Medical History: Diagnosis Date Acid reflux Anxiety Breast cancer (HCC) Hyperlipidemia SURGICAL HISTORY Past Surgical History: Procedure Laterality Date BREAST BIOPSY BREAST LUMPECTOMY 11/21/2019 CATARACT EXTRACTION COLONOSCOPY TUBAL LIGATION WISDOM TOOTH EXTRACTION CURRENT MEDICATIONS Previous Medications ASPIRIN 81 MG CHEWABLE TABLET Chew 81 mg in the morning. CITALOPRAM (CELEXA) 20 MG TABLET CITALOPRAM (CELEXA) 20 MG TABLET Take 1 tablet (20 mg) by mouth daily. Do not start before February 18, 2023. TAMOXIFEN (NOLVADEX) 20 MG TABLET Take 1 tablet (20 mg total) by mouth daily. ALLERGIES Patient has no known allergies. FAMILY HISTORY No family history on file. SOCIAL HISTORY Social History Socioeconomic History Marital status: Tobacco Use Smoking status: Never Smokeless tobacco: Never SCREENINGS PHYSICAL EXAM ED Triage Vitals [11/10/23 1955] Temp Heart Rate Resp BP 37 C (98.6 F) 65 17 (!) 174/69 SpO2 Temp Source Heart Rate Source Patient Position 98 % Oral -- Sitting BP Location FiO2 (%) Left arm -- Physical Exam Vitals and nursing note reviewed. Constitutional: General: She is not in acute distress. Appearance: She is well-developed. HENT: Head: Normocephalic and atraumatic. Eyes: Conjunctiva/sclera: Conjunctivae normal. Cardiovascular: Rate and Rhythm: Normal rate and regular rhythm. Heart sounds: No murmur heard. Pulmonary: Effort: Pulmonary effort is normal. No respiratory distress. Breath sounds: Normal breath sounds. Abdominal: Palpations: Abdomen is soft. Tenderness: There is no abdominal tenderness. Musculoskeletal: General: No swelling. Cervical back: Neck supple. Skin: General: Skin is warm and dry. Capillary Refill: Capillary refill takes less than 2 seconds. Neurological: Mental Status: She is alert. Psychiatric: Mood and Affect: Mood normal. DIAGNOSTIC RESULTS RADIOLOGY (Per Emergency Physician): Interpretation per the Radiologist below, if available at the time of this note: CT head wo IV contrast Final Result No acute intracranial process. Global volume loss with small vessel ischemia. Report Dictated on Electronically Signed By: Abi Cespedes MD Electronically Signed Date/Time: 02/27/2023 8:36 PM EST XR chest 1 view Final Result 1. Large hiatal hernia. 2. No confluent consolidation. Report Dictated on Electronically Signed By: Abi Cespedes MD Electronically Signed Date/Time: 02/27/2023 8:13 PM EST EKG Interpretation: LABS: Labs Reviewed CBC WITH AUTO DIFFERENTIAL - Abnormal Result Value Auto WBC 8.4 RBC 4.38 Hemoglobin 13.2 Hematocrit 40.0 MCV 91.2 MCH 30.1 MCHC 33.1 RDW 13.2 Platelets 210 MPV 7.8 nRBC 0.1 Neutrophils Relative 67.3 Lymphocytes Relative 24.0 Monocytes Relative 7.4 Eosinophils Relative 0.8 (*) Basophils Relative 0.5 Neutrophils Absolute 5.6 Lymphocytes Absolute 2.0 Monocytes Absolute 0.6 Eosinophils Absolute 0.1 Basophils Absolute 0.0 COMPREHENSIVE METABOLIC PANEL - Abnormal SODIUM 137 POTASSIUM 3.7 CHLORIDE 106 CARBON DIOXIDE 24 ANION GAP 7 UREA NITROGEN 19 (*) CREATININE 0.69 GLUCOSE 99 CALCIUM 9.0 AST (SGOT) 46 ALT 30 ALKALINE PHOSPHATASE 58 ALBUMIN 4.0 BILIRUBIN, TOTAL 0.5 TOTAL PROTEIN 7.1 eGFR 87.3 TROPONIN, WITH SERIAL REFLEX - Normal TROPONIN I <0.012 Narrative: Patients with high levels of Biotin oral intake (ie >5 mg/day) may have falsely decreased Troponin levels. THYROID STIMULATING HORMONE - Normal THYROID STIMULATING HORMONE 1.803 COMPLETE URINALYSIS WITH REFLEX TO CULTURE Narrative: The following orders were created for panel order Complete Urinalysis with reflex to Culture. Procedure Abnormality Status --------- ------ Complete Urinalysis[[id number]] Please view results for these tests on the individual orders. COMPLETE URINALYSIS TROPONIN I TROPONIN I All other labs were within normal range or not returned as of this dictation. EMERGENCY DEPARTMENT COURSE and DIFFERENTIAL DIAGNOSIS/MDM: Vitals: Vitals: 02/27/231954 BP: (!) 174/69 BP Location: Left arm Patient Position: Sitting Pulse: 65 Resp: 17 Temp: 37 C (98.6 F) TempSrc: Oral SpO2: 98% Weight: 81.6 kg (180 lb) Height: 1.676 m (5' 6") Medications Administered in the ED: Medications sodium chloride 0.9 % bolus 1,000 mL (0 mL IntraVENous Stopped 02/27/232199) acetaminophen (Tylenol) tablet 1,000 mg (1,000 mg Oral Given 02/27/232058) Presents with increased fatigue, confusion and inability to take care of self PROCEDURES: Unless otherwise noted below, none Procedures Differential Diagnosis Considerations: Failure to thrive, depression, electrolyte derangements, anemia, urinary tract infection, cardiac abnormalities such as ACS or valvular disorder, thyroid abnormalities Sources of History: Patient, family members ED Course: On arrival vital signs with hypertension otherwise normal and stable. Blood work was ordered as she does not have any focal neurologic deficits aside from her confusion although seems like this may not be brand-new for her. CT imaging was ordered and was negative for any acute process. Chest x-ray showing large hiatal hernia and CBC and CMP without any acute electrolyte derangements. TSH within normal limits and troponin negative as well. Do not believe patient is taking care of her self per family members counts and lives by herself. Her POA is present as patient is generally confused due to dementia will rely on them for help with decision-making we will admit her for failure to thrive and likely placement at this point time Reassessment: Consideration of Admission/Observation: Independent Interpretation of Tests: Diagnostic Tests Considered but not Performed: Prescription Medications Considered but not Prescribed: Chronic Conditions Affecting Care: FINAL IMPRESSION 1. Failure to thrive in adult DISPOSITION Admit 02/27/2023 10:09:58 PM PATIENT REFERRED TO: No follow-up provider specified. DISCHARGE MEDICATIONS: New Prescriptions No medications on file (Comment: Please note this report has been produced using speech recognition software and may contain errors related to that system including errors in grammar, punctuation, and spelling, as well as words and phrases that may be inappropriate. If there are any questions or concerns please feel free to contact the dictating provider for clarification.) Humphrey Velasquez MD (electronically signed) Emergency Medicine Provider [facility] Humphrey Velasquez MD 02/27/232220 Pt came in today by EMS from home for increased lethargy, per family pt has been sleeping for 20 plus hours a day for 2 weeks. Pt is only alert and oriented x1, does have a hx of early dementia. Pt only complaints is a headache and nausea. Family at bedside at this time. Was recently here for a UTI. Family concerned for UTI again due to lack of water intake. Bed: 12 Expected date: 02/27/23 Expected time: Means of arrival: Comments: EMS Radha Vazquez 02/27/231949 documented in this encounter [facility] 02-27-2023 Emergency department Note Introduced myself as pt liaison explained role and provided support to daughter and family in lobby , pt arrived via EMS. Jolene Mahmood, EMT 02/27/231955 [facility] 02-27-2023 Emergency department Note Bed: 12 Expected date: 02/27/23 Expected time: Means of arrival: Comments: EMS Radha Vazquez 02/27/23 1950 [facility] 02-27-2023 Emergency department Triage note Pt came in today by EMS from home for increased lethargy, per family pt has been sleeping for 20 plus hours a day for 2 weeks. Pt is only alert and oriented x1, does have a hx of early dementia. Pt only complaints is a headache and nausea. Family at bedside at this time. Was recently here for a UTI. Family concerned for UTI again due to lack of water intake. [facility] 02-27-2023 Physician Emergency department Note EMERGENCY DEPARTMENT ENCOUNTER Pt Name: Albina Brown Birthdate 1940 Date of evaluation: 02/27/2023 ED Provider: Humphrey Velasquez MD CHIEF COMPLAINT Chief Complaint Patient presents with Nausea Altered Mental Status Lethargy Pt brought in by [facility] from home for increased lethargy, per family pt has been sleeping for 20 plus hours a day. Pt only complains of nausea with no vomiting and a headache. 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 HISTORY OF PRESENT ILLNESS I wore appropriate PPE for the entirety of this encounter. HPI Albina Brown is a 82 y.o. person who presents to the emergency department with concern for increased lethargy. Patient is coming from home who reports that she lives with family members although family member state that she lives by herself and is not taking care of herself. States that she has been sleeping for 20+ hours daily although did lose her a month ago. Was seen in the hospital and admitted at the time and diagnosed with rapid onset dementia. Family reports that they have to force her to drink fluids and has not had any p.o. intake in the last 2 days. She refuses her physical therapy and even her home health nursing. Patient is alert to her self and denies any other complaints aside from a slight headache that started while she arrived Nursing Notes were reviewed. Limitations to history: Patient mental status Outside historians: Family members REVIEW OF SYSTEMS Review of Systems Constitutional: Positive for activity change, appetite change and fatigue. Neurological: Positive for headaches. Psychiatric/Behavioral: Positive for confusion. PAST MEDICAL HISTORY Past Medical History: Diagnosis Date Acid reflux Anxiety Breast cancer (HCC) Hyperlipidemia SURGICAL HISTORY Past Surgical History: Procedure Laterality Date BREAST BIOPSY BREAST LUMPECTOMY 11/21/2019 CATARACT EXTRACTION COLONOSCOPY TUBAL LIGATION WISDOM TOOTH EXTRACTION CURRENT MEDICATIONS Previous Medications ASPIRIN 81 MG CHEWABLE TABLET Chew 81 mg in the morning. CITALOPRAM (CELEXA) 20 MG TABLET CITALOPRAM (CELEXA) 20 MG TABLET Take 1 tablet (20 mg) by mouth daily. Do not start before February 18, 2023. TAMOXIFEN (NOLVADEX) 20 MG TABLET Take 1 tablet (20 mg total) by mouth daily. ALLERGIES Patient has no known allergies. FAMILY HISTORY No family history on file. SOCIAL HISTORY Social History Socioeconomic History Marital status: Tobacco Use Smoking status: Never Smokeless tobacco: Never SCREENINGS PHYSICAL EXAM ED Triage Vitals [02/27/231954] Temp Heart Rate Resp BP 37 C (98.6 F) 65 17 (!) 174/69 SpO2 Temp Source Heart Rate Source Patient Position 98 % Oral -- Sitting BP Location FiO2 (%) Left arm -- Physical Exam Vitals and nursing note reviewed. Constitutional: General: She is not in acute distress. Appearance: She is well-developed. HENT: Head: Normocephalic and atraumatic. Eyes: Conjunctiva/sclera: Conjunctivae normal. Cardiovascular: Rate and Rhythm: Normal rate and regular rhythm. Heart sounds: No murmur heard. Pulmonary: Effort: Pulmonary effort is normal. No respiratory distress. Breath sounds: Normal breath sounds. Abdominal: Palpations: Abdomen is soft. Tenderness: There is no abdominal tenderness. Musculoskeletal: General: No swelling. Cervical back: Neck supple. Skin: General: Skin is warm and dry. Capillary Refill: Capillary refill takes less than 2 seconds. Neurological: Mental Status: She is alert. Psychiatric: Mood and Affect: Mood normal. DIAGNOSTIC RESULTS RADIOLOGY (Per Emergency Physician): Interpretation per the Radiologist below, if available at the time of this note: CT head wo IV contrast Final Result No acute intracranial process. Global volume loss with small vessel ischemia. Report Dictated on Electronically Signed By: Abi Cespedes MD Electronically Signed Date/Time: 02/27/2023 8:36 PM EST XR chest 1 view Final Result 1. Large hiatal hernia. 2. No confluent consolidation. Report Dictated on Electronically Signed By: Abi Cespedes MD Electronically Signed Date/Time: 02/27/2023 8:13 PM EST EKG Interpretation: LABS: Labs Reviewed CBC WITH AUTO DIFFERENTIAL - Abnormal Result Value Auto WBC 8.4 RBC 4.38 Hemoglobin 13.2 Hematocrit 40.0 MCV 91.2 MCH 30.1 MCHC 33.1 RDW 13.2 Platelets 210 MPV 7.8 nRBC 0.1 Neutrophils Relative 67.3 Lymphocytes Relative 24.0 Monocytes Relative 7.4 Eosinophils Relative 0.8 (*) Basophils Relative 0.5 Neutrophils Absolute 5.6 Lymphocytes Absolute 2.0 Monocytes Absolute 0.6 Eosinophils Absolute 0.1 Basophils Absolute 0.0 COMPREHENSIVE METABOLIC PANEL - Abnormal SODIUM 137 POTASSIUM 3.7 CHLORIDE 106 CARBON DIOXIDE 24 ANION GAP 7 UREA NITROGEN 19 (*) CREATININE 0.69 GLUCOSE 99 CALCIUM 9.0 AST (SGOT) 46 ALT 30 ALKALINE PHOSPHATASE 58 ALBUMIN 4.0 BILIRUBIN, TOTAL 0.5 TOTAL PROTEIN 7.1 eGFR 87.3 TROPONIN, WITH SERIAL REFLEX - Normal TROPONIN I <0.012 Narrative: Patients with high levels of Biotin oral intake (ie >5 mg/day) may have falsely decreased Troponin levels. THYROID STIMULATING HORMONE - Normal THYROID STIMULATING HORMONE 1.803 COMPLETE URINALYSIS WITH REFLEX TO CULTURE Narrative: The following orders were created for panel order Complete Urinalysis with reflex to Culture. Procedure Abnormality Status --------- ------ Complete Urinalysis[[id number]] Please view results for these tests on the individual orders. COMPLETE URINALYSIS TROPONIN I TROPONIN I All other labs were within normal range or not returned as of this dictation. EMERGENCY DEPARTMENT COURSE and DIFFERENTIAL DIAGNOSIS/MDM: Vitals: Vitals: 11/10/23 1955 BP: (!) 174/69 BP Location: Left arm Patient Position: Sitting Pulse: 65 Resp: 17 Temp: 37 C (98.6 F) TempSrc: Oral SpO2: 98% Weight: 81.6 kg (180 lb) Height: 1.676 m (5' 6") Medications Administered in the ED: Medications sodium chloride 0.9 % bolus 1,000 mL (0 mL IntraVENous Stopped 02/27/232199) acetaminophen (Tylenol) tablet 1,000 mg (1,000 mg Oral Given 02/27/232058) Presents with increased fatigue, confusion and inability to take care of self PROCEDURES: Unless otherwise noted below, none Procedures Differential Diagnosis Considerations: Failure to thrive, depression, electrolyte derangements, anemia, urinary tract infection, cardiac abnormalities such as ACS or valvular disorder, thyroid abnormalities Sources of History: Patient, family members ED Course: On arrival vital signs with hypertension otherwise normal and stable. Blood work was ordered as she does not have any focal neurologic deficits aside from her confusion although seems like this may not be brand-new for her. CT imaging was ordered and was negative for any acute process. Chest x-ray showing large hiatal hernia and CBC and CMP without any acute electrolyte derangements. TSH within normal limits and troponin negative as well. Do not believe patient is taking care of her self per family members counts and lives by herself. Her POA is present as patient is generally confused due to dementia will rely on them for help with decision-making we will admit her for failure to thrive and likely placement at this point time Reassessment: Consideration of Admission/Observation: Independent Interpretation of Tests: Diagnostic Tests Considered but not Performed: Prescription Medications Considered but not Prescribed: Chronic Conditions Affecting Care: FINAL IMPRESSION 1. Failure to thrive in adult DISPOSITION Admit 02/27/2023 10:09:58 PM PATIENT REFERRED TO: No follow-up provider specified. DISCHARGE MEDICATIONS: New Prescriptions No medications on file (Comment: Please note this report has been produced using speech recognition software and may contain errors related to that system including errors in grammar, punctuation, and spelling, as well as words and phrases that may be inappropriate. If there are any questions or concerns please feel free to contact the dictating provider for clarification.) Humphrey Velasquez MD (electronically signed) Emergency Medicine Provider [facility] Humphrey Velasquez MD 02/27/232220 [facility] 02-20-2023 Miscellaneous Notes [facility] at home nurse Mary called in to give a Pt update. Pt fell today. The caregiver was there and was concerned about her falling again once she would be leaving. No injuries were reported but the nurse wanted to update regarding the fall. documented in this encounter [facility] 02-10-2023 History of Presen t illness Narrative Discharged to home, via w/c, to the car Discharge instructions given. Daughter in law verbalized understanding Images from the original note were not included. PHYSICAL THERAPY [facility] Treatment Note Name/MRN: Albina Brown ([id number]) Date of : 1940 Age: 82 y.o. Room/Bed: B1151/B1151 A Visit #: 2 out of 5 visits Discharge Recommendation: Home with Home PT, Home with 24/ Assist, Continue to assess pending progress, and if 24 hour assist is not available patient may require SNF due to significant safety concerns Equipment Needed: TBD with further treatment as patient does not currently own medical equipment Prior Level of Function ADL Assistance: Independent Ambulation Assistance: Independent Device(s) used: none Transfer Assistance: Independent Assessment Pt presents with increased functional mobility. Pt is mod I for transfers, SUP for ambulation without a device and CGA for stair training. Pt demonstrates slight decrease in balance but requires no physical assistance to correct. Extended time and limited by cognition. PT still recs [facility] at discharge. Subjective Pt is agreeable to therapy. Observation: Per RN okay to see. Pt in recliner chair pre/post session with alarm donned. Pain: Pt denies any current pain. Medical Precautions: No active isolations Proper PPE donned/doffed in accordance with facility standards. Fall Risk: Jim Fall Risk Score: 85 (High Risk) Precautions/Restrictions: N/A Overall Cognitive Status: Exceptions Family/Caregiver Present: none Objective Ambulation Ambulation 1 Assistive device(s) used: none Assist level: Supervision Distance (ft): 250ft x 1 Quality of gait: demonstrates a reciprocal gait pattern, proper step height and length, lateral swaying, slight unsteadiness but no LOB noted Transfers/Mobility Sit to stand: Modified Independent Stand to sit: Modified Independent Pt able to demonstrate proper hand placement. Demonstrates good eccentric control. Device(s) used: none Stairs Stairs 1 Assistive device(s) used: none Assist level: Contact Guard # of steps: 4 Rails: right Additional factors: non-reciprocal going up, non-reciprocal going down, demonstrates a step to pattern, decreased step height and length, unsteadiness. CGA to complete but no LOB with assist to correct\\ Plan Continue acute PT per plan of care. Safety/Education Safety Safety Devices in place: All fall risk precautions in place, call light within reach, left in chair, chair alarm in place, gait belt, patient at risk for falls, and nurse notified Restraints: No Education Education Given To: patient Education Provided: PT Role, PT Goals, Gait Training, Plan of Care, and Transfer Training Education Method: Verbal and Demonstration Barriers to Learning: Cognition Education Outcome: Continued Education Needed Outcome Measures AM-PAC AM-PAC Inpatient Mobility Raw Score : 22 AM-PAC Inpatient Mobility Raw Score (No Stairs) : 19 Goals Patient Stated Goal: Patient states she wants to get home. Encounter Problems Encounter Problems (Active) Balance Patient will maintain dynamic standing balance for 5 minutes with modified independence in order to demonstrate decreased risk of falling. (Progressing) Start: 02/05/23 Expected End: 02/12/23 Exercise Patient will complete lower extremity exercises for 1-2 sets / 10 reps in order to improve strength and activity tolerance for mobility. (Not Addressed) Start: 02/05/23 Expected End: 02/12/23 Mobility Patient will ambulate 100 feet with modified independence and least restrictive device in order to improve safety and independence with mobility. (Progressing) Start: 02/05/23 Expected End: 02/12/23 Patient will ascend and descend 5 stairs with one railing and modified independence in order to safely negotiate home. (Progressing) Start: 02/05/23 Expected End: 02/12/23 Pain - Adult Transfers Patient will perform bed mobility with modified independence in order to improve independence and prepare for out of bed mobility. (Not Addressed) Start: 02/05/23 Expected End: 02/12/23 Patient will complete functional transfers with least restrictive device with modified independence in order to prepare for ambulation. (Completed) Start: 02/05/23 Expected End: 02/12/23 Resolved: 02/10/23 Therapy Time Individual Co-treatment Time In 1309 Time Out 1317 Minutes 8 Timed Code Treatment Minutes: 8 Minutes (1 gait) Marisabel Suarez PTA Called daughter in law renetta [phone] and informed her the patient is discharged. Renetta says she works until 1700 so will be to pick her up between [phone] Images from the original note were not included. OCCUPATIONAL THERAPY [facility] Treatment Note Name/MRN: Albina Brown ([id number]) Date of : 1940 Age: 82 y.o. Room/Bed: B1-151/B1-151 A Visit #: 3 out of 5 visits Discharge Recommendation: Home with Home OT, Home with 24/7 Assist, and if 24 hr SUP not available, would benefit from SNF for safety. Equipment Needed: none Prior Level of Function ADL Assistance: Independent Ambulation Assistance: Independent Transfer Assistance: Independent Assessment Pt seen this date for OT treatment focusing on bathroom level toileting and functional transfers / mobility at this time. She continues to require occasional cueing for safety this date, but was able to complete bathroom level toileting and hand hygiene with SBA overall for safety. Pt initially CGA progressing to SBA for mobility this date. Mild instability noted with no true LOB. She would continue to benefit from skilled OT services to address the below. Recommend planned discharge for [facility] OT with 24/7 supervision. Subjective Pleasant and cooperative. OK to see per RN Pain: Pt denies any current pain. Medical Precautions: No active isolations Proper PPE donned/doffed in accordance with facility standards. Fall Risk: Jim Fall Risk Score: 100 (High Risk) Precautions/Restrictions: N/A Family/Caregiver Present: none Objective ADLs Toileting: SBA Pt able to complete bathroom level toileting with increased time this date. No physical assist required for pants management or pericare at this time. Increased reliance on grab bars for stability. She was able to complete hand hygiene at sink level with SBA overall and good use of appropriate environmental supports for stability. No true LOB or c/o fatigue this date. Bed Mobility Supine to sit: Modified Independent Sit to supine: Modified Independent Scooting: Modified Independent Use of bed rails and MOD I. No physical assist required to complete. Denies dizziness with positional changes. Transfers/Mobility Sit to stand: Contact Guard Stand to sit: SBA Toilet: SBA Sitting balance: Modified Independent Standing balance: SBA Functional mobility: SBA Pt completed sit<>stands x2 this date from EOB and from toilet. Denies dizziness with positional changes. No use of AE this date. Good hand placement for push up from / reach back for seated surfaces. Use of grab bar with completion of toilet transfers. No true LOB noted at this time. Pt completed mobility in room to / from bathroom and functional home distances in hallway progressing from CGA to SBA overall. Device(s) used: none Plan Continue acute OT per plan of care. Safety/Education Safety Safety Devices in place: All fall risk precautions in place, call light within reach, left in bed, gait belt, patient at risk for falls, nurse notified, and no alarms engaged upon entry Restraints: No Education Education Given To: patient Education Provided: Plan of Care, ADL Adaptive Strategies, Transfer Training, Equipment, and Fall Prevention Education Education Method: Verbal and Demonstration Barriers to Learning: Cognition Education Outcome: Verbalized Understanding, Demonstrated Understanding, and Continued Education Needed AM-PAC AM-PAC Inpatient Daily Activity Raw Score: 20 ADL Inpatient [facility] G-Code Modifier: CJ Goals Patient Stated Goal: none stated at this time. Encounter Problems Encounter Problems (Active) Dressings Lower Extremities Patient will dress lower body MOD I (Initiated) Start: 02/05/23 Expected End: 02/12/23 Mobility Patient will demonstrate functional mobility with MOD I and LRD (Progressing) Start: 02/05/23 Expected End: 02/12/23 Toileting Patient will complete toileting tasks at standard toilet with modified independence. (Progressing) Start: 02/05/23 Expected End: 02/12/23 Transfers Patient will complete functional transfer with least restrictive device with modified independence in order to prepare for ambulation. (Progressing) Start: 02/05/23 Expected End: 02/12/23 Therapy Time Individual Co-treatment Time In 0904 Time Out 0916 Minutes 12 Timed Code Treatment Minutes: 12 Minutes (ADL) Chencho Naik OT Images from the original note were not included. OCCUPATIONAL THERAPY [facility] Treatment Note Name/MRN: Albina Brown ([id number]) Date of : 1940 Age: 82 y.o. Room[facility]Bed: [facility] A Visit #: 2 out of 5 visits Discharge Recommendation: Home with Home OT, Home with 24/7 Assist, and if 24 hr SUP not available, would benefit from SNF for safety. Equipment Needed: none Prior Level of Function ADL Assistance: Independent Ambulation Assistance: Independent Transfer Assistance: Independent Assessment Pt tolerated session fairly well, limited by decreased cognition. Pt completed bed mobility at mod I. Pt completed seated UB bathing and dressing with SBA and VC, standing LB dressing and bathing with CGA. Pt completed STS with CGA without device. Pt required VC for sequencing and safety. Pt is recommended for [facility] OT and 24/7 assist, but if not available would benefit from placement for safety. Subjective Pt supine in bed, agreeable to OT tx. Per RN, pt okay to see Pain: Pt denies any current pain. Medical Precautions: No active isolations Proper PPE donned/doffed in accordance with facility standards. Fall Risk: Jim Fall Risk Score: 100 (High Risk) Precautions/Restrictions: N/A Family/Caregiver Present: none Objective ADLs UE Bathing: SBA LE Bathing: Contact Guard UE Dressing: SBA LE Dressing: Contact Guard Pt completed seated UB dressing and bathing while seated EOB with SBA. Pt required VC for sequencing, pt attempting to wash armpits through t-shirt. Pt completed LB bathing in standing with unilateral UE support on bed rails and CGA for balance. Pt completed LB dressing with increased time and CGA. Pt with lateral LoB in sitting when completing sock and pants threading, required CGA to sit upright Bed Mobility Supine to sit: Modified Independent Sit to supine: Modified Independent Scooting: Modified Independent Pt completed all aspects of bed mobility with use of bed rails at Mod I. Pt required no hands on assist to complete Transfers/Mobility Sit to stand: Contact Guard Stand to sit: Contact Guard, Pt completed x4 STS from EOB without device and CGA. Pt had no overt LoB but required increased time to gain static standing balance. Sitting balance: Modified Independent Standing balance: Contact Guard Pt stood for ~2-3 mins x2 for standing LB ADLs. Pt required CGA for standing balance with unilateral UE support on bed rail. Pt with not overt LoB. Pt declining functional mobility at this time. Device(s) used: hospital bed Cognition - Impaired. Therapist asked pt "Who do you live with?" Pt responded that she lives with her dad and step mom. Upon therapist asking follow up questions, pt reports they are and that she isn't sure who she lives with. Pt required VC for sequencing and safety at times. Plan Continue acute OT per plan of care. Safety/Education Safety Safety Devices in place: All fall risk precautions in place, call light within reach, left in bed, gait belt, patient at risk for falls, nurse notified, and no alarms engaged upon entry Restraints: No Education Education Given To: patient Education Provided: OT Role, Plan of Care, Precautions, ADL Adaptive Strategies, Transfer Training, Equipment, Fall Prevention Education, and Discharge Recommendations Education Method: Verbal, Demonstration, and Teach Back Barriers to Learning: Cognition Education Outcome: Verbalized Understanding, Demonstrated Understanding, and Continued Education Needed AM-PAC AM-PAC Inpatient Daily Activity Raw Score: 20 ADL Inpatient CMS G-Code Modifier: CJ Goals Patient Stated Goal: none stated at this time. Encounter Problems Encounter Problems (Active) Dressings Lower Extremities Patient will dress lower body MOD I (Progressing) Start: 02/05/23 Expected End: 02/12/23 Mobility Patient will demonstrate functional mobility with MOD I and LRD (Not Addressed) Start: 02/05/23 Expected End: 02/12/23 Toileting Patient will complete toileting tasks at standard toilet with modified independence. (Not Addressed) Start: 02/05/23 Expected End: 02/12/23 Transfers Patient will complete functional transfer with least restrictive device with modified independence in order to prepare for ambulation. (Progressing) Start: 02/05/23 Expected End: 02/12/23 Therapy Time Individual Co-treatment Time In 1030 Time Out 1048 Minutes 18 Timed Code Treatment Minutes: 18 Minutes (1 ADL) CADE Mccrary Images from the original note were not included. Hospitalist Progress Note 02/09/2023 [phone]: Please page me ([phone]) for patient care issues. [phone]: Please page [facility] Hospitalist for any issues. Subjective: Admit Date: 02/04/2023 PCP: MADYSON COLLINS DO Room#: B1-151/B1-151 A Interval History: No overnight issues. Denies chest pain, sob, abdominal pain, nausea, vomiting, diarrhea, constipation, fevers, or chills. Denies any new complaints. Has history of dementia but communicates fine and answers questions appropriately Adult diet Regular @[id number]@ 24HR INTAKE/OUTPUT: Intake/Output Summary (Last 24 hours) at 02/09/2023 0913 Last data filed at 02/08/2023 0948 Gross per 24 hour Intake 220 ml Output -- Net 220 ml Past Medical History: Past Medical History: Diagnosis Date Acid reflux Anxiety Breast cancer (HCC) Hyperlipidemia LABS: CBC: No results for input(s): "WBC", "RBC", "HGB", "HCT", "MCV", "RDW", "PLT" in the last 72 hours. BMP: No results for input(s): "NA", "K", "CL", "CO2", "BUN", "CREATININE", "GLUCOSE", "CALCIUM", "ANIONGAP" in the last 72 hours. LIVER PROFILE: No results for input(s): "AST", "ALT", "BILITOT", "ALKPHOS", "PROT" in the last 72 hours. No lab exists for component: LABALBU PT/INR: No results for input(s): "PROTIME", "INR" in the last 72 hours. CARDIAC ENZYMES: No results for input(s): "TROPONINI" in the last 72 hours. Procalcitonin: No results found for: "PROCAL" COVID-19 PCR: No results for input(s): "COVID19" in the last 72 hours. Objective: Vitals: BP (!) 147/72 Pulse 65 Temp 37.2 C (98.9 F) (Temporal) Resp 16 SpO2 96% Pulse Ox: SpO2 Av.7 % Min: 94 % Max: 97 % Supplemental O2: General appearance: No apparent distress, appears stated age, HEENT: Eyes: No scleral icterus Oral: Tongue is semi-moist Cardiovascular: S1/S2 heard, RRR Respiratory: Clear to auscultation bilaterally Abdomen: Soft, non-tender, non-distended bowel sounds positive Musculoskeletal: No obvious deformities seen Skin: No visible rashes or lesions. Medications: aspirin, 81 mg, Oral, Daily [START ON 02/18/2023] citalopram, 20 mg, Oral, Daily citalopram, 30 mg, Oral, Daily enoxaparin, 40 mg, SubCUTAneous, Daily memantine, 10 mg, Oral, q AM And memantine, 5 mg, Oral, Nightly tamoxifen, 20 mg, Oral, Daily Assessment Functional decline Geriatrics on board - will need 24-7 support going forwards Dementia anemia Breast cancer GERD Hyperlipidemia Anxiety Wean Celexa 40 mg - 30 x 14 days then 20 mg afterwards. Plan [facility]/ for discharge planning. Referral sent to [facility]. Awaiting for auth. Continue all other tx the same. Toxic drug monitoring/narrow therapeutic index drug monitoring if any: # Drug name : # Route administered : # Method of monitoring : Extended Emergency Contact Information Primary Emergency Contact: Renetta Rosenthal Relation: Child Secondary Emergency Contact: Ted Domínguez Relation: Child MAXIMO WINTERS MD Division of Hospitalist Medicine Inpatient Medical Services/[facility] PAGER: Epic chat Images from the original note were not included. Hospitalist Progress Note 02/08/2023 [phone]: Please page me ([phone]) for patient care issues. [phone]: Please page [facility] Hospitalist for any issues. Subjective: Admit Date: 02/04/2023 PCP: MADYSON COLLINS DO Room#: B1-151/B1-151 A Interval History: No overnight issues. Denies chest pain, sob, abdominal pain, nausea, vomiting, diarrhea, constipation, fevers, or chills. She is up in chair with family at bedside and again today asked "when am I going home". Denies any new complaints. Has history of dementia but communicates fine and answers questions appropriately Adult diet Regular @[id number]@ 24HR INTAKE/OUTPUT: Intake/Output Summary (Last 24 hours) at 02/08/2023 1057 Last data filed at 02/08/2023 0948 Gross per 24 hour Intake 220 ml Output -- Net 220 ml Past Medical History: Past Medical History: Diagnosis Date Acid reflux Anxiety Breast cancer (HCC) Hyperlipidemia LABS: CBC: Recent Labs 02/06/23 033 WBC 6.5 RBC 3.31* HGB 10.1* HCT 30.5* MCV 92.1 RDW 13.3 PLT 189 BMP: Recent Labs 02/06/23 033 NA 137 K 4.2 CL 109* CO2 25 BUN 20* CREATININE 0.78 GLUCOSE 93 CALCIUM 8.0* ANIONGAP 3 LIVER PROFILE: Recent Labs 02/06/23335 AST 42 ALT 17 BILITOT 0.3 ALKPHOS 58 PROT 5.8* PT/INR: No results for input(s): "PROTIME", "INR" in the last 72 hours. CARDIAC ENZYMES: No results for input(s): "TROPONINI" in the last 72 hours. Procalcitonin: No results found for: "PROCAL" COVID-19 PCR: No results for input(s): "COVID19" in the last 72 hours. Objective: Vitals: BP (!) 163/79 Pulse 78 Temp 36.7 C (98.1 F) (Temporal) Resp 14 SpO2 95% Pulse Ox: SpO2 Av % Min: 92 % Max: 97 % Supplemental O2: General appearance: No apparent distress, appears stated age, HEENT: Eyes: No scleral icterus Oral: Tongue is semi-moist Cardiovascular: S1/S2 heard, RRR Respiratory: Clear to auscultation bilaterally Abdomen: Soft, non-tender, non-distended bowel sounds positive Musculoskeletal: No obvious deformities seen Skin: No visible rashes or lesions. Medications: aspirin, 81 mg, Oral, Daily [START ON 02/18/2023] citalopram, 20 mg, Oral, Daily citalopram, 30 mg, Oral, Daily enoxaparin, 40 mg, SubCUTAneous, Daily memantine, 10 mg, Oral, q AM And memantine, 5 mg, Oral, Nightly tamoxifen, 20 mg, Oral, Daily Assessment Functional decline Geriatrics on board - will need 24-7 support going forwards Dementia anemia Breast cancer GERD Hyperlipidemia Anxiety Wean Celexa 40 mg - 30 x 14 days then 20 mg afterwards. Plan TCC/SW for discharge planning. Referral sent to [facility]. Awaiting for auth. Continue all other tx the same. Toxic drug monitoring/narrow therapeutic index drug monitoring if any: # Drug name : # Route administered : # Method of monitoring : Extended Emergency Contact Information Primary Emergency Contact: Renetta Rosenthal Relation: Child Secondary Emergency Contact: Ted Domínguez Relation: Child MAXIMO WINTERS MD Division of Hospitalist Medicine Inpatient Medical Services/[facility] PAGER: Epic chat Pt removed IV, IMS aware and stated okay to leave out. Images from the original note were not included. Hospitalist Progress Note 02/07/2023 [phone]: Please page me ([phone]) for patient care issues. [phone]: Please page [facility] Hospitalist for any issues. Subjective: Admit Date: 02/04/2023 PCP: MADYSON COLLINS DO Room#: B1-151/B1-151 A Interval History: No overnight issues. Denies chest pain, sob, abdominal pain, nausea, vomiting, diarrhea, constipation, fevers, or chills. Asked "when am I going home". Denies any new complaints. Has history of dementia but communicates fine and answers questions appropriately Adult diet Regular @[id number]@ 24HR INTAKE/OUTPUT: No intake or output data in the 24 hours ending 02/07/23 1331 Past Medical History: Past Medical History: Diagnosis Date Acid reflux Anxiety Breast cancer (HCC) Hyperlipidemia LABS: CBC: Recent Labs 02/05/2362602/06/23335 WBC 7.0 6.5 RBC 3.67* 3.31* HGB 11.3* 10.1* HCT 34.0* 30.5* MCV 92.7 92.1 RDW 13.4 13.3 PLT 217 189 BMP: Recent Labs 02/05/2362602/06/23335 NA 138 137 K 4.2 4.2 CL 110* 109* CO2 21* 25 BUN 17 20* CREATININE 0.68 0.78 GLUCOSE 101* 93 CALCIUM 8.7 8.0* ANIONGAP 6 3 LIVER PROFILE: Recent Labs 02/05/2362602/06/23335 AST 39 42 ALT 19 17 BILITOT 0.5 0.3 ALKPHOS 70 58 PROT 6.7 5.8* PT/INR: No results for input(s): "PROTIME", "INR" in the last 72 hours. CARDIAC ENZYMES: No results for input(s): "TROPONINI" in the last 72 hours. Procalcitonin: No results found for: "PROCAL" COVID-19 PCR: No results for input(s): "COVID19" in the last 72 hours. Objective: Vitals: BP 113/66 (BP Location: Right arm, Patient Position: Lying) Pulse 76 Temp 36.6 C (97.9 F) (Temporal) Resp 18 SpO2 96% Pulse Ox: SpO2 Av % Min: 93 % Max: 96 % Supplemental O2: General appearance: No apparent distress, appears stated age, HEENT: Eyes: No scleral icterus Oral: Tongue is semi-moist Cardiovascular: S1/S2 heard, RRR Respiratory: Clear to auscultation bilaterally Abdomen: Soft, non-tender, non-distended bowel sounds positive Musculoskeletal: No obvious deformities seen Skin: No visible rashes or lesions. Medications: aspirin, 81 mg, Oral, Daily [START ON 02/18/2023] citalopram, 20 mg, Oral, Daily citalopram, 30 mg, Oral, Daily enoxaparin, 40 mg, SubCUTAneous, Daily memantine, 10 mg, Oral, q AM And memantine, 5 mg, Oral, Nightly tamoxifen, 20 mg, Oral, Daily Assessment Functional decline Geriatrics on board - will need 24-7 support going forwards Dementia anemia Breast cancer GERD Hyperlipidemia Anxiety Wean Celexa 40 mg - 30 x 14 days then 20 mg afterwards. Plan TCC/SW for discharge planning. Referral sent to [facility]. Awaiting for auth. Continue all other tx the same. Toxic drug monitoring/narrow therapeutic index drug monitoring if any: # Drug name : # Route administered : # Method of monitoring : Extended Emergency Contact Information Primary Emergency Contact: Renetta Rosenthal Relation: Child Secondary Emergency Contact: Ted Domínguez Relation: Child MAXIMO WINTERS MD Division of Hospitalist Medicine Inpatient Medical Services/[facility] PAGER: Epic chat Images from the original note were not included. PHYSICAL THERAPY [facility] Treatment Note Name/MRN: Albina Brown ([id number]) Date of : 1940 Age: 82 y.o. Room[facility]Bed: [facility] A Visit #: 1 out of 5 visits Discharge Recommendation: Home with Home PT, Home with 24/7 Assist, Continue to assess pending progress, and if 24 hour assist is not available patient may require SNF due to significant safety concerns Equipment Needed: TBD with further treatment as patient does not currently own medical equipment Prior Level of Function ADL Assistance: Independent Ambulation Assistance: Independent Device(s) used: none Transfer Assistance: Independent Assessment Pt progressing slowly toward acute care goals. Pt is is SBA for transfers from recliner chair, CGA with ambulation with no device. Demonstrates decreased overall balance and narrow YOLANDA. Pt is CGA for stair trials. Pt is expected to benefit from continued therapy In order to increase overall independence. Subjective Pt is agreeable to therapy. Observation: Per RN okay to therapy. Pt sitting in recliner chair with alarm donned Vitals: Per RN okay to see. Pain: Pt denies any current pain. Medical Precautions: No active isolations Proper PPE donned/doffed in accordance with facility standards. Fall Risk: Jim Fall Risk Score: 85 (High Risk) Precautions/Restrictions: N/A Overall Cognitive Status: Exceptions Overall Orientation Status: Unable to Assess Family/Caregiver Present: none Objective Ambulation Ambulation 1 Assistive device(s) used: none Assist level: Contact Guard Distance (ft): 150ft x 1 Quality of gait: demonstrates a narrow YOLANDA, reciprocal gait pattern, decreased step height and length, upright posture, lateral swaying, unsteadiness but no LOB noted Transfers/Mobility Sit to stand: SBA Stand to sit: SBA Demonstrates proper hand placement with ascends and descends. Device(s) used: none Bed Mobility Sitting in recliner chair pre/post session. Alarm donned. Stairs Stairs 1 Assistive device(s) used: none Assist level: Contact Guard # of steps: 4 Rails: right Additional factors: non-reciprocal going up, non-reciprocal going down, Pt able to demonstrate step to pattern, with B R rail supervisor seaming. No major Lob noted. Plan Continue acute PT per plan of care. Safety/Education Safety Safety Devices in place: All fall risk precautions in place, call light within reach, left in chair, chair alarm in place, gait belt, patient at risk for falls, and nurse notified Restraints: No Education Education Given To: patient Education Provided: PT Role, PT Goals, Gait Training, Plan of Care, and Transfer Training Education Method: Verbal and Demonstration Barriers to Learning: Cognition Education Outcome: Demonstrated Understanding and Continued Education Needed Outcome Measures AM-PAC AM-PAC Inpatient Mobility Raw Score (No Stairs) : 15 Goals Patient Stated Goal: Patient states she wants to get home. Encounter Problems Encounter Problems (Active) Balance Patient will maintain dynamic standing balance for 5 minutes with modified independence in order to demonstrate decreased risk of falling. (Progressing) Start: 02/05/23 Expected End: 02/12/23 Exercise Patient will complete lower extremity exercises for 1-2 sets / 10 reps in order to improve strength and activity tolerance for mobility. (Not Addressed) Start: 02/05/23 Expected End: 02/12/23 Mobility Patient will ambulate 100 feet with modified independence and least restrictive device in order to improve safety and independence with mobility. (Progressing) Start: 02/05/23 Expected End: 02/12/23 Patient will ascend and descend 5 stairs with one railing and modified independence in order to safely negotiate home. (Progressing) Start: 02/05/23 Expected End: 02/12/23 Pain - Adult Transfers Patient will perform bed mobility with modified independence in order to improve independence and prepare for out of bed mobility. (Progressing) Start: 02/05/23 Expected End: 02/12/23 Patient will complete functional transfers with least restrictive device with modified independence in order to prepare for ambulation. (Progressing) Start: 02/05/23 Expected End: 02/12/23 Therapy Time Individual Co-treatment Time In 1405 Time Out 1414 Minutes 9 Timed Code Treatment Minutes: 9 Minutes (1 gait) Marisabel Suarez CASING TRIMMER Nutrition rescreen completed. Patient assigned a level 1. Images from the original note were not included. OCCUPATIONAL THERAPY [facility] Treatment Note Name/MRN: Albina Brown ([id number]) Date of : 1940 Age: 82 y.o. Room/Bed: B1-151/B1-151 A Visit #: 1 out of 5 visits Discharge Recommendation: Home with Home OT, Home with 24/7 Assist, and if 24 hr SUP not available, would benefit from SNF for safety. Equipment Needed: none Prior Level of Function ADL Assistance: Independent Ambulation Assistance: Independent Transfer Assistance: Independent Assessment Pt tolerated OT session well this date. Pt currently requires CGA for functional mobility without a device to/from bathroom, SBA for transfers, CGA for toilet transfer, SBA for bed mobility, SBA-Min A for toileting/LE dressing tasks, SBA for UE ADLs, SBA for grooming standing at sink. Pt is limited by decreased cognition, decreased endurance and strength. Pt will continue to benefit from skilled OT services to address noted deficits and maximize safety for occupational performance. Pt is recommended for home with 24/7 supervision for planned discharge. Subjective Pt presents supine in bed, agreeable to OT. Okay to see per RN. Per documentation, pt has a fall yesterday, pt unable to recall event. Also doesn't recall passing away recently. Pt perseverative on going home, asks multiple times "has anyone talked to my family yet?" Pain: Pt denies any current pain. Medical Precautions: No active isolations Proper PPE donned/doffed in accordance with facility standards. Fall Risk: Jim Fall Risk Score: 85 (High Risk) Precautions/Restrictions: N/A Family/Caregiver Present: none Objective ADLs Grooming: SBA UE Dressing: SBA LE Dressing: SBA, Min Assist Toileting: SBA, Min Assist Pt demo's UE dressing sitting EOB with SBA to doff/don gown, SBA to thread hospital pant, Min A to manage upon pulling up due to tightness of pants, pt doffs with SBA. Pt demo's toileting to std height commode with SBA for anterior pericare seated, Min A for management of brief/hospital pant management. Bed Mobility Supine to sit: SBA HOB elevated, use of bedrail, increased time and effort to scoot to EOB. Cognition - Safety judgement: decreased awareness of need for assistance and decreased awareness of need for safety - Problem solving: assistance required to identify errors made, assistance required to correct errors made, and decreased awareness of errors - Insights: decreased awareness of deficits Pt A+O x2, to self and place Plan Continue acute OT per plan of care. Safety/Education Safety Safety Devices in place: All fall risk precautions in place, call light within reach, left in chair, chair alarm in place, gait belt, patient at risk for falls, and nurse notified Restraints: N/A Education Education Given To: patient Education Provided: OT Role, Plan of Care, ADL Adaptive Strategies, Transfer Training, Discharge Recommendations, and Benefits of Increasing Activity Education Method: Verbal and Demonstration Barriers to Learning: Cognition Education Outcome: Continued Education Needed AM-PAC AM-PAC Inpatient Daily Activity Raw Score: 19 ADL Inpatient CMS G-Code Modifier: CK Goals Patient Stated Goal: none stated at this time. Encounter Problems Encounter Problems (Active) Dressings Lower Extremities Patient will dress lower body MOD I (Progressing) Start: 02/05/23 Expected End: 02/12/23 Mobility Patient will demonstrate functional mobility with MOD I and LRD (Progressing) Start: 02/05/23 Expected End: 02/12/23 Toileting Patient will complete toileting tasks at standard toilet with modified independence. (Progressing) Start: 02/05/23 Expected End: 02/12/23 Transfers Patient will complete functional transfer with least restrictive device with modified independence in order to prepare for ambulation. (Progressing) Start: 02/05/23 Expected End: 02/12/23 Therapy Time Individual Co-treatment Time In 1034 Time Out 1053 Minutes 19 Timed Code Treatment Minutes: 19 Minutes (x1 self care) Freda Proctor OT POC supervision transferred to rehab service department Occupational Therapist [facility] Geriatric Medicine Inpatient Consult Service Admission Date: 02/04/2023 Assessment Principal Problem: Dementia (HCC) Active Problems: At risk for delirium Anxiety Altered mental status Plan Dementia -likely Alzheimer's Disease -needs 10/11 supervision going forward. Family working on this. -continue namenda. She takes namenda XR 21 mg daily at home. We only have the IR version in hospital, so currently on Namenda 10 mg in AM and 5 mg in PM. She can be switched back to XR version at discharge Anxiety -she was on celexa 40 mg daily at home. The maximum recommended dose of celexa is geriatric population is 20 mg daily due to risk of qtc prolongation. Order was lowered to 30 mg daily x 14 days then 20 mg daily thereafter Debility -had a fall yesterday -may be going to SNF for rehab prior to going home with 10/11 supervision -Physical Therapy and Occupational Therapy -case management as made SNF referral At Risk for Delirium -Risk factors include: age and cognitive impairment -Melatonin nightly prn insomnia -Avoid sedating/anticholinergic medications -Encourage family visits -Encourage sleep hygiene -Minimize barriers to nutrition -Optimize sensory input and access to assistive devices where indicated -Encourage time up in chair - including at meals - as able -Unless contraindicated, encourage regular ambulation with assistance -D/c Cespedes, restraints, IV lines, as able Follow-up: prn, please page with any questions/issues Subjective Chief Complaint: confusion, wandering Geriatrics consulted for Dementia HPI- The patient is known to me. Albina Brown is an 82 year old female with PMH of anxiety, hld, breast cancer (on Tamoxifen, follows with Dr Carlson), acid reflux who presented to hospital after being found wandering outside. This occurred twice recently. She is noted to be very forgetful - family reports long-standing memory issues. Family reports she had been living alone and family would come over to her house to help with taking her medications. Patient's recently in early January. She does not remember that he Reviewed today's primary team progress note: no compaints this morning. She is disoriented. Family does not want LTC - they are trying to arrange 24 hour help at home. Reviewed rapid response note from last night. Patient had a fall while transfering from wheelchair to bedside chair. CMP today: BUN 20 CBC today: hgb 10.1 CT head: atrophy and chronic ischemic change. No acute process. Interval History: -she reports feeling well today. Denies pain. Doesn't feel sick. Knows she is in a hospital but not sure which one. Appetite is good. Says she slept well last night. Review of Systems Constitutional: Negative for fever. Respiratory: Negative for shortness of breath. Cardiovascular: Negative for leg swelling. Gastrointestinal: Negative for abdominal pain, constipation, diarrhea and nausea. Genitourinary: Negative for dysuria. Musculoskeletal: Negative for arthralgias and myalgias. Objective BP (!) 151/78 Pulse 64 Temp 36.4 C (97.6 F) (Temporal) Resp 18 SpO2 95% No intake or output data in the 24 hours ending 02/06/23 1049 Wt Readings from Last 3 Encounters: 08/28/22 166 lb 12.8 oz (75.7 kg) 02/24/22 165 lb 14.4 oz (75.3 kg) 01/21/22 163 lb 9.6 oz (74.2 kg) Current Facility-Administered Medications: acetaminophen (Tylenol) tablet 650 mg, 650 mg, Oral, q6h PRN OR acetaminophen (Tylenol) suppository 650 mg, 650 mg, Rectal, q6h PRN, Philippe Farmer MD aspirin chewable tablet 81 mg, 81 mg, Oral, Daily, Philippe Farmer MD, 81 mg at 02/06/23 0859 [START ON 02/18/2023] citalopram (CeleXA) tablet 20 mg, 20 mg, Oral, Daily, Regina Yu MD citalopram (CeleXA) tablet 30 mg, 30 mg, Oral, Daily, John Mai MD, 30 mg at 02/06/23 0900 enoxaparin (Lovenox) syringe 40 mg, 40 mg, SubCUTAneous, Daily, Philippe Farmer MD, 40 mg at 02/06/23 0900 melatonin tablet 5 mg, 5 mg, Oral, Nightly PRN, Angelito Matson MD, 5 mg at 02/04/232024 memantine (Namenda) tablet 10 mg, 10 mg, Oral, q AM, 10 mg at 02/06/23 0900 AND memantine (Namenda) tablet 5 mg, 5 mg, Oral, Nightly, John Mai MD, 5 mg at 02/05/232052 ondansetron ODT (Zofran-ODT) disintegrating tablet 4 mg, 4 mg, Oral, q8h PRN OR ondansetron (Zofran) injection 4 mg, 4 mg, IntraVENous, q6h PRN, Philippe Farmer MD polyethylene glycol (PEG) 3350 (Miralax) packet 17 g, 17 g, Oral, Daily PRN, Philippe Farmer MD tamoxifen (Nolvadex) chemo tablet 20 mg, 20 mg, Oral, Daily, Philippe Farmer MD, 20 mg at 02/05/23 0848 Physical Exam Constitutional: General: She is not in acute distress. Appearance: She is not ill-appearing. HENT: Head: Normocephalic and atraumatic. Cardiovascular: Rate and Rhythm: Normal rate and regular rhythm. Heart sounds: No murmur heard. No friction rub. No gallop. Pulmonary: Effort: Pulmonary effort is normal. Breath sounds: Normal breath sounds. No decreased breath sounds, wheezing, rhonchi or rales. Abdominal: General: There is no distension. Palpations: Abdomen is soft. Tenderness: There is no abdominal tenderness. There is no guarding or rebound. Musculoskeletal: Right lower leg: No edema. Left lower leg: No edema. Neurological: Mental Status: She is alert. Psychiatric: Attention and Perception: Attention normal. Mood and Affect: Affect normal. Cognition and Memory: Cognition is impaired. Memory is impaired. Labs and Imaging: Recent Results (from the past 24 hour(s)) CBC auto differential Collection Time: 02/06/23 3:36 AM Result Value Ref Range Auto WBC 6.5 3.6 - 10.7 10*3/uL RBC 3.31 (L) 3.8 - 5.20 10*6/uL Hemoglobin 10.1 (L) 11.7 - 16.0 g/dL Hematocrit 30.5 (L) 35.0 - 47.0 % MCV 92.1 80.0 - 98.0 fL MCH 30.5 26.0 - 34.0 pg MCHC 33.1 32.0 - 36.0 % RDW 13.3 11.5 - 14.5 % Platelets 189 140 - 440 10*3/uL MPV 7.3 (L) 7.4 - 12.4 fL nRBC 0.0 0.0 - 2.0 /100 WBCs Neutrophils Relative 46.5 40.0 - 80.0 % Lymphocytes Relative 39.5 20.0 - 40.0 % Monocytes Relative 9.8 2.0 - 10.0 % Eosinophils Relative 3.1 1.0 - 6.0 % Basophils Relative 1.1 0.0 - 2.0 % Neutrophils Absolute 3.0 1.8 - 7.0 10*3/uL Lymphocytes Absolute 2.6 1.0 - 4.3 10*3/uL Monocytes Absolute 0.6 0.0 - 0.8 10*3/uL Eosinophils Absolute 0.2 0.0 - 0.5 10*3/uL Basophils Absolute 0.1 0.0 - 0.2 10*3/uL Comprehensive metabolic panel Collection Time: 02/06/23 3:36 AM Result Value Ref Range SODIUM 137 135 - 145 mmol/L POTASSIUM 4.2 3.5 - 5.1 mmol/L CHLORIDE 109 (H) 98 - 107 mmol/L CARBON DIOXIDE 25 22 - 30 mmol/L ANION GAP 3 3 - 13 mmol/L UREA NITROGEN 20 (H) 7 - 17 mg/dL CREATININE 0.78 0.52 - 1.04 mg/dL GLUCOSE 93 70 - 100 mg/dL CALCIUM 8.0 (L) 8.4 - 10.4 mg/dL AST (SGOT) 42 15 - 46 U/L ALT 17 0 - 34 U/L ALKALINE PHOSPHATASE 58 38 - 126 U/L ALBUMIN 3.2 (L) 3.5 - 5.0 g/dL BILIRUBIN, TOTAL 0.3 0.2 - 1.3 mg/dL TOTAL PROTEIN 5.8 (L) 6.3 - 8.2 g/dL eGFR 76.4 >60.0 mL/min/1.73m*2 Lab Results Component Value Date TSH 4.168 02/04/2023 Lab Results Component Value Date [id number] 911 02/04/2023 Lab Results Component Value Date [id number] 48 02/04/2023 Images from the original note were not included. Hospitalist Progress Note 02/06/[phone]: Please secure chat me on patient care issues. [phone]: Please secure chat [facility] Hospitalist for any issues. Subjective: Admit Date: 02/04/2023 PCP: MADYSON COLLINS DO Room#: B1-151/B1-151 A CHIEF COMPLAINT: Confusion Interval History: Patient denies any complaints at this time, is disorientated to place - time -both year - 2018, and date - December. No concerns with fever, chills, cough or congestion. She says she may be constipated but will let us know later in the day. Patient did fall the previous day and DIL was notified. Adult diet Regular @[id number]@ 24HR INTAKE/OUTPUT: No intake or output data in the 24 hours ending 02/06/23 1027 Past Medical History: Past Medical History: Diagnosis Date Acid reflux Anxiety Breast cancer (HCC) Hyperlipidemia LABS: CBC: Recent Labs 02/04/23 0216 02/05/23 0627 02/06/23 0336 WBC 9.1 7.0 6.5 RBC 3.99 3.67* 3.31* HGB 12.2 11.3* 10.1* HCT 37.0 34.0* 30.5* MCV 92.8 92.7 92.1 RDW 13.5 13.4 13.3 PLT 236 217 189 BMP: Recent Labs 02/04/23 0216 02/05/2362602/06/23 0336 NA 138 138 137 K 4.0 4.2 4.2 CL 109* 110* 109* CO2 25 21* 25 BUN 23* 17 20* CREATININE 0.81 0.68 0.78 GLUCOSE 110* 101* 93 CALCIUM 9.3 8.7 8.0* ANIONGAP 4 6 3 LIVER PROFILE: Recent Labs 02/05/2362602/06/23 0336 AST 39 42 ALT 19 17 BILITOT 0.5 0.3 ALKPHOS 70 58 PROT 6.7 5.8* PT/INR: No results for input(s): "PROTIME", "INR" in the last 72 hours. CARDIAC ENZYMES: No results for input(s): "TROPONINI" in the last 72 hours. Procalcitonin: No results found for: "PROCAL" COVID-19 PCR: No results for input(s): "COVID19" in the last 72 hours. Objective: Vitals: BP (!) 151/78 Pulse 64 Temp 36.4 C (97.6 F) (Temporal) Resp 18 SpO2 95% Pulse Ox: SpO2 Av.6 % Min: 95 % Max: 97 % Supplemental O2: Physical Exam Vitals and nursing note reviewed. HENT: Mouth/Throat: Pharynx: Oropharynx is clear. Eyes: Conjunctiva/sclera: Conjunctivae normal. Pupils: Pupils are equal, round, and reactive to light. Cardiovascular: Rate and Rhythm: Normal rate. Heart sounds: No murmur heard. Pulmonary: Effort: Pulmonary effort is normal. No respiratory distress. Breath sounds: No wheezing or rales. Abdominal: General: Bowel sounds are normal. Tenderness: There is no abdominal tenderness. Musculoskeletal: Right lower leg: No edema. Left lower leg: No edema. Skin: General: Skin is warm and dry. Capillary Refill: Capillary refill takes less than 2 seconds. Coloration: Skin is pale. Neurological: General: No focal deficit present. Mental Status: She is alert. Medications: aspirin, 81 mg, Oral, Daily [START ON 02/18/2023] citalopram, 20 mg, Oral, Daily citalopram, 30 mg, Oral, Daily enoxaparin, 40 mg, SubCUTAneous, Daily memantine, 10 mg, Oral, q AM And memantine, 5 mg, Oral, Nightly tamoxifen, 20 mg, Oral, Daily Assessment Functional decline Geriatrics on board - will need 24-7 support going forwards Dementia anemia Breast cancer GERD Hyperlipidemia Anxiety Wean Celexa 40 mg - 30 x 14 days then 20 mg afterwards. 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 Encourage family to make a discharge plan, no injury from fall from previous day, Geriatrics recommends weaning celexa given max dose is 20 mg, will need 24/7 supervision going forwards - family is aware. -am labs, replace lytes prn -increase activity -DVT prophylaxis: [] Lovenox [] Heparin [] SCDs [x] Encourage ambulation [] Already on Anticoagulation Anticipated Discharge - Date - 02/06- - Location - Home with Home Health Care - Pending the following - decision by family and arrangement of any equipment needs Total time spent (which include face to face and non face to face encounters) : 35 minutes Toxic drug monitoring/narrow therapeutic index drug monitoring : # Drug name : NA # Route administered : NA # Method of monitoring : NA Extended Emergency Contact Information Primary Emergency Contact: Renetta Rosenthal Relation: Child Secondary Emergency Contact: Ted Domínguez Relation: Child Abby Gomez MD Division of Hospitalist Medicine Acute care Locately PAGER: Epic chat Images from the original note were not included. Hospitalist Progress Note 02/05/2023 [phone]: Please secure chat me for patient care issues. [phone]: Please secure chat [facility] night Hospitalist for any issues. Subjective: Admit Date: 02/04/2023 PCP: MADYSON COLLINS DO Room#: B1-151/B1-151 A Interval History: Up in chair at side of bed. Tolerating diet. Weak. She denies chest pain, sob, cough, abdominal pain, nausea, vomiting, diarrhea, constipation, fevers, or chills. D/w pt and RN separately. Adult diet Regular @[id number]@ 24HR INTAKE/OUTPUT: No intake or output data in the 24 hours ending 02/05/23 1138 Past Medical History: Past Medical History: Diagnosis Date Acid reflux Anxiety Breast cancer (HCC) Hyperlipidemia LABS: CBC: Recent Labs 02/04/2321502/05/23626 WBC 9.1 7.0 RBC 3.99 3.67* HGB 12.2 11.3* HCT 37.0 34.0* MCV 92.8 92.7 RDW 13.5 13.4 PLT 236 217 BMP: Recent Labs 02/04/2321502/05/23626 NA 138 138 K 4.0 4.2 CL 109* 110* CO2 25 21* BUN 23* 17 CREATININE 0.81 0.68 GLUCOSE 110* 101* CALCIUM 9.3 8.7 ANIONGAP 4 6 LIVER PROFILE: Recent Labs 02/05/23626 AST 39 ALT 19 BILITOT 0.5 ALKPHOS 70 PROT 6.7 PT/INR: No results for input(s): "PROTIME", "INR" in the last 72 hours. CARDIAC ENZYMES: No results for input(s): "TROPONINI" in the last 72 hours. Procalcitonin: No results found for: "PROCAL" COVID-19 PCR: No results for input(s): "COVID19" in the last 72 hours. Objective: Vitals: BP 120/63 Pulse 69 Temp 36.8 C (98.2 F) (Temporal) Resp 16 SpO2 97% Pulse Ox: SpO2 Av.8 % Min: 93 % Max: 100 % Physical Exam Vitals and nursing note reviewed. Constitutional: General: She is not in acute distress. HENT: Head: Normocephalic. Eyes: Extraocular Movements: Extraocular movements intact. Conjunctiva/sclera: Conjunctivae normal. Cardiovascular: Rate and Rhythm: Normal rate and regular rhythm. Pulses: Normal pulses. Pulmonary: Effort: Pulmonary effort is normal. Breath sounds: Normal breath sounds. Abdominal: General: Bowel sounds are normal. Palpations: Abdomen is soft. Musculoskeletal: General: Normal range of motion. Cervical back: Normal range of motion and neck supple. Skin: General: Skin is warm and dry. Neurological: Mental Status: She is alert. Mental status is at baseline. She is disoriented. Psychiatric: Mood and Affect: Mood normal. Medications: aspirin, 81 mg, Oral, Daily [START ON 02/18/2023] citalopram, 20 mg, Oral, Daily citalopram, 30 mg, Oral, Daily enoxaparin, 40 mg, SubCUTAneous, Daily memantine, 10 mg, Oral, q AM And memantine, 5 mg, Oral, Nightly tamoxifen, 20 mg, Oral, Daily Assessment Functional decline Dementia anemia Breast cancer GERD Hyperlipidemia Anxiety d/o Medical Decision Making Continue current tx and meds, follow up head CT, Geriatrics has seen, continue PT/OT, increase activity, follow up labs, monitor for delirium, discharge planning, see orders. -am labs, replace lytes prn -increase activity -DVT prophylaxis: [x] Lovenox [] Heparin [] SCDs [x] Encourage ambulation [] Already on Anticoagulation Anticipated Discharge - Date - 02/05-02/06 - Location - Skilled Facility vs home with home health care/24 hr assist - Pending the following - once arrangements finalized Total time spent (which include face to face and non face to face encounters) : 47 minutes Toxic drug monitoring/narrow therapeutic index drug monitoring : # Drug name : lovenox # Route administered : SQ # Method of monitoring : daily CBC and monitor for blood loss Extended Emergency Contact Information Primary Emergency Contact: Renetta Rosenthal Relation: Child Secondary Emergency Contact: Ted Domínguez Relation: Child STEPHANE GRIDER MD Division of Hospitalist Medicine Acute care Locately PAGER: Epic chat Images from the original note were not included. OCCUPATIONAL THERAPY [facility] Initial Evaluation Having reviewed the treatment plan and goals for this patient, I certify that the plan of care below is medically necessary and appropriate. Name/MRN: Albina Brown ([id number]) Evaluation Date: 02/05/2023 Date of : 1940 Admission Date: 02/04/2023 1:38 AM Age: 82 y.o. Room/Bed: B1-151/B1-151 A Discharge Recommendation: Home with Home OT, Home with 24/7 Assist, and if 24 hr SUP not available, would benefit from SNF for safety. Equipment Needed: none Assessment IMPRESSION: Pt in 02/04 with increased confusion and noted UTI. She was previously IND for ADLs, IADLs, functional transfers / mobility without device. She demos mild cognitive deficits, however demos good ability to participate in functional activity and OOB mobility. She is currently CGA for LB ADLs, SUP for seated UB ADLs, and CGA - SBA for functional transfers / mobility without a device. She would benefit from skilled OT services to address the below. Recommend planned discharge for C with 24 hr SUP. Should 24 hr SUP not be available, pt would benefit from placement for safety. Performance Deficits /Impairments: Decreased Functional Mobility, Decreased ADL status, Decreased Endurance, Decreased Balance, Decreased High Level IADLs, and Decreased Posture Prognosis: Good Decision Making: Medium Complexity Subjective Pleasant and cooperative. OK to see per RN. Up in chair following session with RN aware. Pain: Pt denies any current pain. Past Medical History: Past Medical History: Diagnosis Date Acid reflux Anxiety Breast cancer (HCC) Hyperlipidemia Past Surgical History: Past Surgical History: Procedure Laterality Date BREAST BIOPSY BREAST LUMPECTOMY 11/21/2019 CATARACT EXTRACTION COLONOSCOPY TUBAL LIGATION WISDOM TOOTH EXTRACTION Admission Diagnosis: Patient Active Problem List Diagnosis Date Noted Altered mental status 02/05/2023 Dementia (HCC) 02/04/2023 At risk for delirium 02/04/2023 Anxiety 02/04/2023 Malignant neoplasm of lower-outer quadrant of left breast of female, estrogen receptor positive (HCC) 12/15/2019 Medical Precautions: No active isolations Proper PPE donned/doffed in accordance with facility standards. Fall Risk: Jim Fall Risk Score: 85 (High Risk) Precautions/Restrictions: N/A Family/Caregiver Present: none Overall Cognitive Status: Exceptions - Arousal/alertness: appropriate responses to stimuli - Following commands: follows one step commands consistently - Attention span: appears intact - Memory: decreased recall of recent events - Safety judgement: decreased awareness of need for assistance - Problem solving: assistance required to generate solutions and assistance required to implement solutions - Insights: decreased awareness of deficits - Initiation: does not require cues - Sequencing: does not require cues Hx of dementia. Overall Orientation Status: Oriented to Place, Oriented to Person, and Disoriented to Time Pt reoriented to time during session, however was unable to recall at end of session. Social/Functional History Patient admitted from home. Lives With: Alone Type of Home: single family home Home Layout: Single Level Home Home Access: Stairs to Enter with Rails (# of stairs: 5) Bathroom Shower/Tub: Tub Only and Walk in Shower Toilet: Standard Home Equipment: none Homemaking Responsibilities: Independent Receives Help From: Family Active Transitional Studies Instructor: No Pt's has recently . Prior Level of Function ADL Assistance: Independent Ambulation Assistance: Independent Transfer Assistance: Independent Objective ADLs LE Dressing: Contact Guard No true LOB noted during OOB activity. She was able to thread BLE through hospital pants and manage up over hips in standing without physical assist. CGA overall for stability during standing activity. Pt demos good functional reach, strength, and endurance for completion of LB ADLs. She requires no cueing for sequencing or initiation at this time during ADL tasks. Based on her functional ability, anticipate that pt would require CGA for LB ADLs, and SUP for seated UB ADLs. MOD I for feeding. Upper Extremity Assessment AROM: WFL PROM: WFL Strength: WFL Vision: no visual deficits Hearing: normal Bed Mobility Supine to sit: Min Assist Scooting: SBA HOB elevated, increased time required to complete. No true LOB noted at this time with completion MIN A for stability and trunk control to reach EOB, however once seated partially upright, pt was able to square hips to EOB. Pt seated upright in recliner following session. Transfers/Functional Mobility Sit to stand: Contact Guard Stand to sit: SBA Sitting balance: Modified Independent Standing balance: SBA Functional mobility: SBA, Contact Guard No true LOB noted at this time with OOB activity. Pt completed sit<>stand from EOB to no device with CGA overall for safety on stand and SBA for controlled descent to recliner following mobility. Pt demos good hand placement for push up from / reach back for seated surfaces. Denies dizziness with positional changes. Pt progressing from CGA - SBA overall during mobility. She was able to complete functional home distances with mildly increased time this date. No true LOB noted with pt taking small, controlled steps. No use of AE or environmental supports this date. Device(s) used: none AM-PAC AM-PAC Inpatient Daily Activity Raw Score: 19 ADL Inpatient CMS G-Code Modifier: CK Plan Pt would benefit from skilled acute OT services to address Balance Training, Functional Mobility Training, Endurance Training, Cognitive Reorientation, Safety Education and Training, Patient/Caregiver Training, Equipment Evaluation/Education, Self-Care/ADL Training, Home Management Training, and Cognitive/Perceptual Training. Frequency: 5 visits during current hospital admission or until additional recommendations are made Barriers: Confusion, Cognitive deficit, and Decreased endurance Prognosis: good Safety/Education Safety Safety Devices in place: All fall risk precautions in place, call light within reach, left in chair, gait belt, patient at risk for falls, nurse notified, and no alarms engaged upon entry Restraints: No Education Education Given To: patient Education Provided: OT Role, Plan of Care, ADL Adaptive Strategies, Transfer Training, Family Education, Equipment, and Fall Prevention Education Education Method: Verbal, Demonstration, and Teach Back Barriers to Learning: Cognition Education Outcome: Verbalized Understanding, Demonstrated Understanding, and Continued Education Needed Goals Patient Stated Goal: none stated at this time. Encounter Problems Encounter Problems (Active) Dressings Lower Extremities Patient will dress lower body MOD I Start: 02/05/23 Expected End: 02/12/23 Mobility Patient will demonstrate functional mobility with MOD I and LRD Start: 02/05/23 Expected End: 02/12/23 Toileting Patient will complete toileting tasks at standard toilet with modified independence. Start: 02/05/23 Expected End: 02/12/23 Transfers Patient will complete functional transfer with least restrictive device with modified independence in order to prepare for ambulation. Start: 02/05/23 Expected End: 02/12/23 Therapy Time Individual Co-treatment Time In 0852 (OT / PT coeval) Time Out 0907 Minutes 15 Chencho Naik OT Patient's Occupational Therapy Plan of Care supervision is transferred to a [facility] Services Occupational Therapist. Goals and/or treatment plan was established in collaboration with patient/family/other representatives. Images from the original note were not included. PHYSICAL THERAPY [facility] Initial Evaluation Name/MRN: Albina Brown ([id number]) Evaluation Date: 02/05/2023 Date of : 1940 Admission Date: 02/04/2023 1:38 AM Age: 82 y.o. Room/Bed: B1151/B1-151 A Having reviewed the treatment plan and goals for this patient, I certify that the plan of care below is medically necessary and appropriate. Discharge Recommendation: Home with Home PT, Home with 24/7 Assist, Continue to assess pending progress, and if 24 hour assist is not available patient may require SNF due to significant safety concerns Equipment Needed: TBD with further treatment as patient does not currently own medical equipment Assessment IMPRESSION: Pt presents with decreased functional mobility, decreased strength, decreased safety awareness, decreased endurance and impaired balance. Pt has decreased standing balance requiring 1 person for safety at this time placing her at an increased risk of falling. Pt could benefit from continued PT in order to address her decreased functional mobility, strength, balance and safety. Pt has medical history as indicated below that contributes to her clinical presentation. At baseline patient is functionally independent with no device. Currently patient is CGA/SBA with no device and is anticipated to progress with acute therapies and medical management in order to return home with 24 hour assist and [facility] PT. Diagnosis: Patient admitted with confusion and found to be wondering, advancing dementia and UTI. CT negative. Prognosis: good Performance Deficits /Impairments: Decreased Functional Mobility, Decreased Strength, Decreased Safety Awareness, Decreased Cognition, Decreased Endurance, and Decreased Balance Decision Making: Medium Complexity Subjective Patient pleasant agreeable to therapy session this date. Observation: no lines present Pain: Pt denies any current pain. Past Medical History: Past Medical History: Diagnosis Date Acid reflux Anxiety Breast cancer (HCC) Hyperlipidemia Past Surgical History: Past Surgical History: Procedure Laterality Date BREAST BIOPSY BREAST LUMPECTOMY 11/21/2019 CATARACT EXTRACTION COLONOSCOPY TUBAL LIGATION WISDOM TOOTH EXTRACTION Admission Diagnosis: Patient Active Problem List Diagnosis Date Noted Altered mental status 02/05/2023 Dementia (HCC) 02/04/2023 At risk for delirium 02/04/2023 Anxiety 02/04/2023 Malignant neoplasm of lower-outer quadrant of left breast of female, estrogen receptor positive (HCC) 12/15/2019 Medical Precautions: No active isolations Proper PPE donned/doffed in accordance with facility standards. Fall Risk: Jim Fall Risk Score: 85 (High Risk) Precautions/Restrictions: N/A Family/Caregiver Present: none Overall Cognitive Status: Exceptions - Memory: decreased recall of recent events and decreased short term memory - Safety judgement: decreased awareness of need for assistance and decreased awareness of need for safety - Problem solving: decreased awareness of errors - Insights: decreased awareness of deficits h/o dementia Overall Orientation Status: Oriented to Place, Oriented to Situation, and Oriented to Person - reoriented to time within session, patient unable to recall month and year minutes later when prompted Vision: wears glasses at all times and and are being used during the eval Hearing: normal Social/Functional History Patient admitted from home. Lives With: Alone - 2 weeks ago Type of Home: single family home Home Layout: Single Level Home Home Access: Stairs to Enter with Rails (# of stairs: 5) Bathroom Shower/Tub: Tub Only and Walk in Shower Toilet: Standard Home Equipment: none Homemaking Responsibilities: Independent Receives Help From: Family and Home Health Aid Active Transitional Studies Instructor: No Prior Level of Function ADL Assistance: Independent Ambulation Assistance: Independent Device(s) used: none Transfer Assistance: Independent Objective Lower Extremity Assessment AROM: WFL Strength: WFL - generalized weakness noted with mobility Bed Mobility: Supine to sit: Min Assist, to upright trunk Sit to supine: NT patient up in recliner end of session Scooting: SBA Denies dizziness with positional changes. Transfers Sit to stand: Contact Guard, to no device from EOB Stand to sit: SBA Denies dizziness on initial stance. No true Lob or instability on initial stance noted with wide YOLANDA and prolonged UE support on EOB during transition. Ambulation Ambulation 1 Assistive device(s) used: none Assist level: SBA, Contact Guard Distance (ft): 200 ft x 1 Quality of gait: reciprocal stepping, B foot clearance, equal step length, slow delmer, postural sway, path deviations Pt demonstrates slight instability with no device but no overall LOB. Patient may benefit from a device to improve stability. Outcome Measures AM-PAC How much HELP from another person do you currently need Turning from your back to your side while in a flat bed without using bedrails?: A Little Moving from lying on your back to sitting on the side of a flat bed without using bedrails?: A Little Moving to and from a bed to a chair (including a wheelchair)?: A Little Standing up from a chair using your arms (wheelchair or bedside chair)?: A Little Walking in a hospital room?: A Little Stair climbing assessed?: No AM-PAC Inpatient Mobility Raw Score (No Stairs) : 15 Plan Pt would benefit from skilled acute PT services to address Strengthening, Balance Training, Functional Mobility Training, Endurance Training, Gait Training, Stair Training, Neuromuscular Re-Education Training, Cognitive Reorientation, Safety Education and Training, Patient/Caregiver Training, Equipment Evaluation/Education, and Positioning. Frequency: 5 visits Barriers: Cognitive deficit and Decreased endurance Safety/Education Safety Safety Devices in place: All fall risk precautions in place, call light within reach, left in chair, chair alarm in place, gait belt, patient at risk for falls, and nurse notified Restraints: N/A Education Education Given To: patient Education Provided: PT Role, PT Goals, Gait Training, Plan of Care, Transfer Training, Fall Prevention Education, Discharge Recommendations, and Benefits of Increasing Activity Education Method: Verbal and Demonstration Barriers to Learning: Cognition Education Outcome: Verbalized Understanding, Demonstrated Understanding, and Continued Education Needed Goals Patient Stated Goal: Patient states she wants to get home. Encounter Problems Encounter Problems (Active) Balance Patient will maintain dynamic standing balance for 5 minutes with modified independence in order to demonstrate decreased risk of falling. Start: 02/05/23 Expected End: 02/12/23 Exercise Patient will complete lower extremity exercises for 1-2 sets / 10 reps in order to improve strength and activity tolerance for mobility. Start: 02/05/23 Expected End: 02/12/23 Mobility Patient will ambulate 100 feet with modified independence and least restrictive device in order to improve safety and independence with mobility. Start: 02/05/23 Expected End: 02/12/23 Patient will ascend and descend 5 stairs with one railing and modified independence in order to safely negotiate home. Start: 02/05/23 Expected End: 02/12/23 Pain - Adult Transfers Patient will perform bed mobility with modified independence in order to improve independence and prepare for out of bed mobility. Start: 02/05/23 Expected End: 02/12/23 Patient will complete functional transfers with least restrictive device with modified independence in order to prepare for ambulation. Start: 02/05/23 Expected End: 02/12/23 Therapy Time Individual Co-treatment Time In 0852 Time Out 0907 Minutes 15 Radha Hassan PT Patient's Physical Therapy Plan of Care supervision is transferred to a [facility] Therapy Services Physical Therapist. Goals and/or treatment plan was established in collaboration with patient/family/other representatives. documented in this encounter [facility] 02-10-2023 Miscellaneous Notes Patient Choice Patient Name: ALBINA BROWN Date of : 1940 All Providers Sent Referral Name: [facility] Phone: [phone] Address: [address] [place] [address] Start PACC Note Home Health Referral Educated patient and Dtr-inlaw on Home Care and services available. Patient offered choice of available HHC and agreeable to SN, PT services with [facility] - Home Care. Care Types: None Isolation Precautions: No active isolations Social Determinates of Health: Tobacco Use: Low Risk (02/04/2023) Patient History Smoking Tobacco Use: Never Smokeless Tobacco Use: Never Passive Exposure: Not on file Social History Substance and Sexual Activity Alcohol Use None Social History Substance and Sexual Activity Drug Use Not on file Does the patient have any financial resource strain? No Does the patient have any food insecurities? No Does the patient have any housing instabilities? No If any of the above is noted as yes - consider a SHOW HOST/HOSTESS evaluation once the patient returns home. START PATIENT REGISTRATION INFORMATION Order Information Order Signing Physician: Kel Hill MD Service Ordered RN ?: Yes Service Ordered PT ?: Yes Service Ordered OT ?: No Service Ordered ST ?: No Service Ordered SHOW HOST/HOSTESS?:No Service Ordered CONTROL ELECTRICIAN?: No Following Physician: MADYSON COLLINS DO Following Physician Overseeing Physician: MADYSON COLLINS DO (Required for Residents only) Agreeable to Follow? Yes Date/Time of Call 02/10/23 2:16 PM, Spoke with: Staff Care Coordination Same Day SOC?: No Primary Care Physician: MADYSON COLLINS DO Primary Care Physician Primary Care Physician Address: [address] [place] [address] Road / [facility] [id number] Visit Instructions: No Thursday visits Service Discharge Location Type: Home with Home Health Care Service Facility Name: N/A Service Floor Facility: N/A Service Room No: N/A Demographics Patient Last Name: Kevin Patient First Name: Albina Language/Communication Barrier: N/A Service Address: [address] [place] [address] [address] Service City: [place] Service ST: [place] Service ZIP: [address] Service (home) Other phone numbers: Telephone Information: Emergency Contact: Extended Emergency Contact Information Primary Emergency Contact: Renetta Rosenthal Relation: Child Secondary Emergency Contact: Ted Domínguez Relation: Child Admission Information Admit Date: 02/04/2023 Patient status at discharge: Observation Admitting Diagnosis Advancing dementia (HCC) [F03.90] Altered mental status [R41.82] Caregiver Information Caregiver First Name: Renetta Caregiver Last Name:Lizbeth Caregiver Relationship to Patient FAMILY Caregiver Caregiver Notes: N/A [employer] List No END PATIENT REGISTRATION INFORMATION Pt Home Health goal to increase functional mobility, and safety. COVID Status 1. Do you have any upper respiratory symptoms (cough, SOB, Fever)? No 2. Have you been exposed to anyone with COVID-19 Virus? No Answer only if pending or positive for COVID-19? 1. Agreeable to wear PPE at each visit? No 2. Is the hospital supplying them with PPE upon Discharge? No Start PACC Summary General Report/ Additional Comments Patient goes to [facility] on Fridays. Patient has had multiple falls since dementia has worsened Discharge Date: 02/10/23 Referral Source-PACC: (Hospital/Unit): 1E / B1-151/B1-151 A End PACC Note Images from the original note were not included. Care Management Progress Note Spoke with daughter in law Renetta. Discussed insurance denial. She would like pt to return home with home therapy. aboriginal liaison officer notified.. Pt attends [facility] 1x[facility]wk, has family friend that checks on pt & Renetta is there in evenings. Family feels comfortable with pt returning home. Notified atternding & RN via secure chat. Discharge Milestones and Delays Expected Date/Time: 02/10/[address] discharge order Complete med reconciliation Case mgmt discharge readiness Clinical Stability Diagnsotic Workup Expected Discharge History Expected Date/Time Set By Reviewed At 02/10/2023 Gabriela Brown RN 02/10/2023 7:09 AM Auth pending for [facility] 02/09/2023 MARIAH Randle 02/09/2023 10:14 AM 02/06/2023 MARIAH Randle 02/06/2023 9:57 AM Plan for discharge today 02/06/2023 Stephane Grider MD 02/05/2023 9:47 AM 02/06/2023 Ana Seymour MD 02/04/2023 3:16 PM 02/06/2023 Ana Seymour MD 02/04/2023 5:49 AM Length of Stay (Days): 0 GMLOS: No GMLOS Documented Images from the original note were not included. Care Management Progress Note Received message from Jaimee that peer to peer is required. Referral [id number] need to do a peer to peer by 3:20 this afternoon. The phone number is . Attending notified via secure chat. Discharge Milestones and Delays Expected Date/Time: 02/09/[address] discharge order Complete med reconciliation Case mgmt discharge readiness Clinical Stability Diagnsotic Workup Expected Discharge History Expected Date/Time Set By Reviewed At 02/09/2023 MARIAH Randle 02/09/2023 10:14 AM Auth pending for [facility] 02/06/2023 MARIAH Randle 02/06/2023 9:57 AM Plan for discharge today 02/06/2023 Stephane Grider MD 02/05/2023 9:47 AM 02/06/2023 Ana Seymour MD 02/04/2023 3:16 PM 02/06/2023 Ana Seymour MD 02/04/2023 5:49 AM Length of Stay (Days): 0 GMLOS: No GMLOS Documented Reviewed careport and continue to await auth for [facility]. Will update attending and primary care nurse if received over the weekend and patient able to discharge.. Problem: Pain - Adult Goal: Verbalizes/displays adequate comfort level or baseline comfort level Outcome: Progressing Problem: Safety - Adult Goal: Free from fall injury Outcome: Progressing Problem: Discharge Planning Goal: Discharge to home or other facility with appropriate resources Outcome: Progressing Problem: Chronic Conditions and Co-morbidities Goal: Patient's chronic conditions and co-morbidity symptoms are monitored and maintained or improved Outcome: Progressing Problem: Skin/Tissue Integrity - Adult Goal: Skin integrity remains intact Outcome: Progressing Goal: Incisions, wounds, or drain sites healing without S/S of infection Outcome: Progressing Goal: Oral mucous membranes remain intact Outcome: Progressing Problem: Musculoskeletal - Adult Goal: Return mobility to safest level of function Outcome: Progressing Goal: Maintain proper alignment of affected body part Outcome: Progressing Goal: Return ADL status to a safe level of function Outcome: Progressing Problem: Pain - Adult Goal: Verbalizes/displays adequate comfort level or baseline comfort level Outcome: Progressing Problem: Safety - Adult Goal: Free from fall injury Outcome: Progressing Problem: Discharge Planning Goal: Discharge to home or other facility with appropriate resources Outcome: Progressing Reviewed chart and continue to await auth for [facility]. Will update attending and primary care nurse if received over the weekend and patient able to discharge. . Problem: Pain - Adult Goal: Verbalizes/displays adequate comfort level or baseline comfort level Outcome: Progressing Problem: Safety - Adult Goal: Free from fall injury Outcome: Progressing Problem: Discharge Planning Goal: Discharge to home or other facility with appropriate resources Outcome: Progressing Problem: Chronic Conditions and Co-morbidities Goal: Patient's chronic conditions and co-morbidity symptoms are monitored and maintained or improved Outcome: Progressing Problem: Skin/Tissue Integrity - Adult Goal: Skin integrity remains intact Outcome: Progressing Goal: Incisions, wounds, or drain sites healing without S/S of infection Outcome: Progressing Goal: Oral mucous membranes remain intact Outcome: Progressing Problem: Musculoskeletal - Adult Goal: Return mobility to safest level of function Outcome: Progressing Goal: Maintain proper alignment of affected body part Outcome: Progressing Goal: Return ADL status to a safe level of function Outcome: Progressing Referral placed to [facility] via Careport per [facility] request. Await review and response regarding ability to accept. TCC notified. Received call from daughter in law Weber & they would like [facility] for rehab. [facility] tasked to make referral. Problem: Pain - Adult Goal: Verbalizes/displays adequate comfort level or baseline comfort level Outcome: Progressing Problem: Safety - Adult Goal: Free from fall injury Outcome: Progressing Problem: Discharge Planning Goal: Discharge to home or other facility with appropriate resources Outcome: Progressing Problem: Chronic Conditions and Co-morbidities Goal: Patient's chronic conditions and co-morbidity symptoms are monitored and maintained or improved Outcome: Progressing Problem: Skin/Tissue Integrity - Adult Goal: Skin integrity remains intact Outcome: Progressing Goal: Incisions, wounds, or drain sites healing without S/S of infection Outcome: Progressing Goal: Oral mucous membranes remain intact Outcome: Progressing Problem: Musculoskeletal - Adult Goal: Return mobility to safest level of function Outcome: Progressing Goal: Maintain proper alignment of affected body part Outcome: Progressing Goal: Return ADL status to a safe level of function Outcome: Progressing Called by staff to pt's room for a fall. PT was returning from CT with jordan Mcnally when pt fell onto the floor while trying to sit onto chair. Pt states she did bump her head on armrest of chair. [employer] called and vital signs were obtained. Henrik from [employer] dwon to assess pt, along with nursing seismic prospecting supervisor Pearl, and Dr. Wintesr. Pt A&O to person and place, and denies pain at this time. Pt doesn't have any lacerations and denies headache, and/or dizziness. Dr. Winters cleared pt to get into chair. No new orders at this time. ALIX Weber notified of pt's fall. Paged to bedside r/t witnessed fall. Pt stated that she fell while transferring from the wheelchair to the bedside chair. Stated that she bumped her head on the padded armrest of the chair when she fell. Pt A+O to person and place. Pt denies any pain. No new lacerations, bumps or bruising. Dr. Olivas to bedside to clear pt to return to bed. No orders to follow. Spoke with daughter in law Renetta regarding therapy evals & observation status. She would like to follow up with pt son who is currently working in [place]. They were under the impression from ER staff that they had 72 hours to decide on plan for her. Explained to her the observation is an outpt stay & that 24-48 hrs is the usual the limit. They do not want long-term placement at this time & are trying to arrange 24 hr help at home.She will follow up with pt son & then f/u with TCC when decisions are made. Assessment not completed as daughter in law was at work & limited on time. S/W, follow up Patient Waiver Lorenzo Lang called back. Precious did relay that they do have an independent aide that is set to be approved for the patient, the process will take about two weeks to complete. Precious did state patient family does watch over the patient consistently. Precious notes that since patient was placed in a Nursing facility ( [facility]) the patient has had a decline. Patient did pass away 10-4. Precious noted she will be discussing getting the patient more days at the [facility] with ALIX Weber, at least until patient aide is approved. I did update Unit S/W of the above. SW consult for possible placement vs return home with home health care. ED SW met with patient and family. PT/OT ordered. Covering TCC to complete initial case management assessment. TCC to also follow for possible placement once therapy assesses and makes their recommendations. SW to follow for any discharge barriers. Problem: Pain - Adult Goal: Verbalizes/displays adequate comfort level or baseline comfort level Outcome: Progressing Problem: Safety - Adult Goal: Free from fall injury Outcome: Progressing Problem: Discharge Planning Goal: Discharge to home or other facility with appropriate resources Outcome: Progressing Seen and examined. Chart/labs/tests reviewed. D/w pt and son at bedside. D/w Geriatrics via secure chat. Please see H&P done by Dr Farmer earlier today for complete details. S/W, follow up LVM for patient ALIX Weber, contact info provided for a call back. S/W, bedded ED patient Patient in early AM after leaving her home and wandering, found sitting on the side of the road. Patient with Dementia, found here to have a UTI. Family noted possible placement. I did visit patient and Son in ED room to discuss planning. Son indicated his is looking into getting more help in the home. The patient does have [facility] Waiver, Casemanager is Precious Grace ) I did speak with [facility] line to inform of patient admit and inquire on services. The patient currently does not have any aide services but is in process of getting an independent provider assigned. This may take several weeks. The patient did have 11 hrs a week of aide services through [place] however patient aide quit and they have noone to replace. The patient does go to the [facility] once a week, gets 3 meals a week and has [employer]. I did ask that assigned Casemanager Precious please call to discuss increase in services if able. Son indicated to reach out to his Renetta for planning. documented in this encounter [facility] 02-10-2023 Note Formatting of this n ote might be different from the original. Patient Choice Patient Name: ALBINA BROWN Date of : 1940 All Providers Sent Referral Name: [facility] Phone: [phone] Address: [address] [place] [address] [facility] 02-10-2023 Note Formatting of this n ote might be different from the original. Patient Choice Patient Name: ALBINA BROWN Date of : 1940 All Providers Sent Referral Name: [facility] Phone: [phone] Address: [address] [place] [id number] [facility] 02-10-2023 Note Formatting of this n ote is different from the original. Start PACC Note Home Health Referral Educated patient and Dtr-inlaw on Home Care and services available. Patient offered choice of available HHC and agreeable to SN, PT services with [facility] - Home Care. Care Types: None Isolation Precautions: No active isolations Social Determinates of Health: Tobacco Use: Low Risk (02/04/2023) Patient History Smoking Tobacco Use: Never Smokeless Tobacco Use: Never Passive Exposure: Not on file Social History Substance and Sexual Activity Alcohol Use None Social History Substance and Sexual Activity Drug Use Not on file Does the patient have any financial resource strain? No Does the patient have any food insecurities? No Does the patient have any housing instabilities? No If any of the above is noted as yes - consider a SHOW HOST/HOSTESS evaluation once the patient returns home. START PATIENT REGISTRATION INFORMATION Order Information Order Signing Physician: Kel Hill MD Service Ordered RN ?: Yes Service Ordered PT ?: Yes Service Ordered OT ?: No Service Ordered ST ?: No Service Ordered SHOW HOST/HOSTESS?:No Service Ordered CONTROL ELECTRICIAN?: No Following Physician: MADYSON COLLINS DO Following Physician Overseeing Physician: MADYSON COLLINS DO (Required for Residents only) Agreeable to Follow? Yes Date/Time of Call 02/10/23 2:16 PM, Spoke with: Staff Care Coordination Same Day SOC?: No Primary Care Physician: MADYSON COLLINS DO Primary Care Physician Primary Care Physician Address: [address] [place] [address] / [place] [address] Visit Instructions: No Thursday visits Service Discharge Location Type: Home with Home Health Care Service Facility Name: N/A Service Floor Facility: N/A Service Room No: N/A Demographics Patient Last Name: Kevin Patient First Name: Albina Language/Communication Barrier: N/A Service Address: [address] [place] [address] Service City: [facility] ST: [place] Service ZIP: [address] Service (home) Other phone numbers: Telephone Information: Emergency Contact: Extended Emergency Contact Information Primary Emergency Contact: Renetta Rosenthal Relation: Child Secondary Emergency Contact: Ted Domínguez Relation: Child Admission Information Admit Date: 02/04/2023 Patient status at discharge: Observation Admitting Diagnosis Advancing dementia (HCC) [F03.90] Altered mental status [R41.82] Caregiver Information Caregiver First Name: Reentta Caregiver Last Name:Lizbeth Caregiver Relationship to Patient FAMILY Caregiver Caregiver Notes: N/A [employer] List No END PATIENT REGISTRATION INFORMATION Pt Home Health goal to increase functional mobility, and safety. COVID Status 1. Do you have any upper respiratory symptoms (cough, SOB, Fever)? No 2. Have you been exposed to anyone with COVID-19 Virus? No Answer only if pending or positive for COVID-19? 1. Agreeable to wear PPE at each visit? No 2. Is the hospital supplying them with PPE upon Discharge? No Start PACC Summary General Report/ Additional Comments Patient goes to [facility] on Fridays. Patient has had multiple falls since dementia has worsened Discharge Date: 02/10/23 Referral Source-PACC: (Hospital/Unit): 1E / B1-151/B1-151 A End PACC Note [facility] 02-10-2023 Note Formatting of this n ote is different from the original. Start PACC Note Home Health Referral Educated patient and Dtr-anjelicaaw on Home Care and services available. Patient offered choice of available HHC and agreeable to SN, PT services with [facility] - Home Care. Care Types: None Isolation Precautions: No active isolations Social Determinates of Health: Tobacco Use: Low Risk (02/04/2023) Patient History Smoking Tobacco Use: Never Smokeless Tobacco Use: Never Passive Exposure: Not on file Social History Substance and Sexual Activity Alcohol Use None Social History Substance and Sexual Activity Drug Use Not on file Does the patient have any financial resource strain? No Does the patient have any food insecurities? No Does the patient have any housing instabilities? No If any of the above is noted as yes - consider a SHOW HOST/HOSTESS evaluation once the patient returns home. START PATIENT REGISTRATION INFORMATION Order Information Order Signing Physician: Kel Hill MD Service Ordered RN ?: Yes Service Ordered PT ?: Yes Service Ordered OT ?: No Service Ordered ST ?: No Service Ordered SHOW HOST/HOSTESS?:No Service Ordered CONTROL ELECTRICIAN?: No Following Physician: MADYSON COLLINS DO Following Physician Overseeing Physician: MADYSON COLLINS DO (Required for Residents only) Agreeable to Follow? Yes Date/Time of Call 02/10/23 2:16 PM, Spoke with: Staff Care Coordination Same Day SOC?: No Primary Care Physician: MADYSON COLLINS DO Primary Care Physician Primary Care Physician Address: [address] [place] [address] / [facility] [id number] Visit Instructions: No Thursday visits Service Discharge Location Type: Home with Home Health Care Service Facility Name: N/A Service Floor Facility: N/A Service Room No: N/A Demographics Patient Last Name: Kevin Patient First Name: Albina Language/Communication Barrier: N/A Service Address: [address] [place] [address] [address] Service City: [place] Service ST: [place] Service ZIP: [address] Service (home) Other phone numbers: Telephone Information: Emergency Contact: Extended Emergency Contact Information Primary Emergency Contact: Renetta Rosenthal Relation: Child Secondary Emergency Contact: Ted Domínguez Relation: Child Admission Information Admit Date: 02/04/2023 Patient status at discharge: Observation Admitting Diagnosis Advancing dementia (HCC) [F03.90] Altered mental status [R41.82] Caregiver Information Caregiver First Name: Renetta Caregiver Last Name:Lizbeth Caregiver Relationship to Patient FAMILY Caregiver Caregiver Notes: N/A [employer] List No END PATIENT REGISTRATION INFORMATION Pt Home Health goal to increase functional mobility, and safety. COVID Status 1. Do you have any upper respiratory symptoms (cough, SOB, Fever)? No 2. Have you been exposed to anyone with COVID-19 Virus? No Answer only if pending or positive for COVID-19? 1. Agreeable to wear PPE at each visit? No 2. Is the hospital supplying them with PPE upon Discharge? No Start PACC Summary General Report/ Additional Comments Patient goes to [facility] on Fridays. Patient has had multiple falls since dementia has worsened Discharge Date: 02/10/23 Referral Source-PACC: (Hospital/Unit): 1E / B1-151/B1-151 A End PACC Note [facility] 02-10-2023 Note Start PACC Note Home Health Referral Educated patient and Dtr-inlaw on Home Care and services available. Patient offered choice of available HHC and agreeable to SN, PT services with [facility] - Home Care. Care Types: None Isolation Precautions: No active isolations Social Determinates of Health: Tobacco Use: Low Risk (02/04/2023) Patient History Smoking Tobacco Use: Never Smokeless Tobacco Use: Never Passive Exposure: Not on file Social History Substance and Sexual Activity Alcohol Use None Social History Substance and Sexual Activity Drug Use Not on file Does the patient have any financial resource strain? No Does the patient have any food insecurities? No Does the patient have any housing instabilities? No If any of the above is noted as yes - consider a SHOW HOST/HOSTESS evaluation once the patient returns home. START PATIENT REGISTRATION INFORMATION Order Information Order Signing Physician: Kel Hill MD Service Ordered RN ?: Yes Service Ordered PT ?: Yes Service Ordered OT ?: No Service Ordered ST ?: No Service Ordered SHOW HOST/HOSTESS?:No Service Ordered CONTROL ELECTRICIAN?: No Following Physician: MADYSON COLLINS DO Following Physician Overseeing Physician: MADYSON COLLINS DO (Required for Residents only) Agreeable to Follow? Yes Date/Time of Call 02/10/23 2:16 PM, Spoke with: Staff Care Coordination Same Day SOC?: No Primary Care Physician: MADYSON COLLINS DO Primary Care Physician Primary Care Physician Address: [address] [place] [address] / [place] [address] Visit Instructions: No Thursday visits Service Discharge Location Type: Home with Home Health Care Service Facility Name: N/A Service Floor Facility: N/A Service Room No: N/A Demographics Patient Last Name: Kevin Patient First Name: Albina Language/Communication Barrier: N/A Service Address: [address] [place] [address] [address] Service City: [facility] ST: [place] Service ZIP: [address] Service (home) Other phone numbers: Telephone Information: Emergency Contact: Extended Emergency Contact Information Primary Emergency Contact: Renetta Rosenthal Relation: Child Secondary Emergency Contact: Ted Domínguez Relation: Child Admission Information Admit Date: 02/04/2023 Patient status at discharge: Observation Admitting Diagnosis Advancing dementia (HCC) [F03.90] Altered mental status [R41.82] Caregiver Information Caregiver First Name: Renetta Caregiver Last Name:Lizbeth Caregiver Relationship to Patient FAMILY Caregiver Caregiver Notes: N/A [employer] List No END PATIENT REGISTRATION INFORMATION Pt Home Health goal to increase functional mobility, and safety. COVID Status 1. Do you have any upper respiratory symptoms (cough, SOB, Fever)? No 2. Have you been exposed to anyone with COVID-19 Virus? No Answer only if pending or positive for COVID-19? 1. Agreeable to wear PPE at each visit? No 2. Is the hospital supplying them with PPE upon Discharge? No Start PACC Summary General Report/ Additional Comments Patient goes to [facility] on Fridays. Patient has had multiple falls since dementia has worsened Discharge Date: 02/10/23 Referral Source-PACC: (Hospital/Unit): 1E / B1-151/B1-151 A End PACC Note [facility] 02-10-2023 Note [facility] Hospitalist Discharge Summary Albina Brown : 1940 Admit date: 02/04/2023 Discharge date: 02/10/2023 Admitting Physician: Stephane Grider MD Primary Care Physician: MADYSON COLLINS DO Visit Status: Admission Code Status: DNR-CCA Discharge Diagnoses: Functional decline Dementia likely Alzheimer's disease, admitted and seen by geriatrics while in the hospital, Chronic anemia History of breast cancer Gastroesophageal reflux disease Hyperlipidemia Generalized anxiety disorder was taking Celexa 40 mg tapered to 20 mg daily Procedures: None Hospital Course: Patient is an 82-year-old female who was brought in by the family to the emergency department with a 3-day history of having memory problems and wandering around the house, she is being treated for dementia,, she has a history of breast cancer surgery in the past and will follow-up with hematology and oncology her vitamin B12 and TSH were normal, she was continued on Namenda. Initial consideration was to send to SNF but later she went home. Discharged in stable condition Labs reviewed Consults: Geriatrics Discharge Instructions: Diet: Adult diet Regular Activity: as tolerated Recommended Outpatient Tests: Disposition: Patient discharged in stable condition to Home. Greater than 40 minutes spent discharging the patient and coming up with patient discharge plan- labs reviewed Vitals: BP (!) 140/78 Pulse 72 Temp 36.7 ?C (98 ?F) (Temporal) Resp 17 SpO2 96% Pulse Ox: SpO2 Av % Min: 94 % Max: 96 % Supplemental O2: General appearance: No apparent distress, appears stated age and cooperative with exam Respiratory: Normal respiratory effort. Clear to auscultation, bilaterally without Rales/Wheezes/Rhonchi. Cardiovascular: Regular rate and rhythm with normal S1/S2 without murmurs, rubs or gallops. Abdomen: Soft, non-tender, non-distended with normal bowel sounds. No rebound or guarding. Musculoskeletal: No clubbing, cyanosis or edema bilaterally. Full range of motion without deformity. Skin: Skin color, texture, turgor normal. No rashes or lesions. Discharge Medications: Medication List CHANGE how you take these medications * citalopram 20 MG tablet Commonly known as: CeleXA What changed: Another medication with the same name was added. Make sure you understand how and when to take each. * citalopram 20 MG tablet Commonly known as: CeleXA Take 1 tablet (20 mg) by mouth daily. Do not start before February 18, 2023. Start taking on: February 18, 2023 What changed: You were already taking a medication with the same name, and this prescription was added. Make sure you understand how and when to take each. * This list has 2 medication(s) that are the same as other medications prescribed for you. Read the directions carefully, and ask your doctor or other care provider to review them with you. CONTINUE taking these medications aspirin 81 MG chewable tablet tamoxifen 20 MG tablet Commonly known as: Nolvadex Take 1 tablet (20 mg total) by mouth daily. STOP taking these medications ascorbic acid 500 mg chewable tablet Commonly known as: Vitamin C cholecalciferol 25 MCG (1000 UT) capsule Commonly known as: Vitamin D-3 HERBAL ENERGY COMPLEX PO meclizine 25 MG tablet Commonly known as: Antivert MULTIVITAMIN ADULT PO omeprazole [address] capsule Commonly known as: PriLOSEC Where to Get Your Medications These medications were sent to [facility] [address] [place], [facility] [id number] Hours: Thursday to Thursday 10 am to 6 pm citalopram 20 MG tablet Recommended Follow-up: [place] [address] [facility] [address] Follow up [phone] Dementia follow up Complexity of Follow up: [] Moderate Complexity: follow up within 7-14 calendar days (89766) [x] Severe Complexity: follow up within 7 calendar days (62947) Follow up Testing, Pending results or Referrals at Transitional Care Visit: [x] yes [] No GENERAL ZONES GREEN ZONE: All Clear- Your Symptoms Are Under Control No recurrence of symptoms that led to hospitalization Able to do usual activities No fever No chest pain No shortness of breath This Means You Should: Continue taking your medications as prescribed Continue activity as tolerated Keep all doctor appointments YELLOW ZONE: Caution Recurrence of symptoms that led to hospitalization Fever of 100 degrees or higher Increased fatigue or restlessness Intolerant side-effects of medications Uneasy feeling or that something is wrong This Means You Should: Call your doctor for further instructions Either your PCP or specialist RED ZONE: Medical Alert Severe or unrelieved shortness of breath at rest Unrelieved chest pain Confusion or you can't think clearly This Means You Should Call 911 Immediately Instructions to TIERNEY Lares (more content not included)... [facility] 02-10-2023 Hospital course Narrative Images from the original note were not included. [facility] Hospitalist Discharge Summary Albina Brown : 1940 Admit date: 02/04/2023 Discharge date: 02/10/2023 Admitting Physician: Stephane Grider MD Primary Care Physician: AMDYSON COLLINS DO Visit Status: Admission Code Status: DNR-CCA Discharge Diagnoses: Functional decline Dementia likely Alzheimer's disease, admitted and seen by geriatrics while in the hospital, Chronic anemia History of breast cancer Gastroesophageal reflux disease Hyperlipidemia Generalized anxiety disorder was taking Celexa 40 mg tapered to 20 mg daily Procedures: None Hospital Course: Patient is an 82-year-old female who was brought in by the family to the emergency department with a 3-day history of having memory problems and wandering around the house, she is being treated for dementia,, she has a history of breast cancer surgery in the past and will follow-up with hematology and oncology her vitamin B12 and TSH were normal, she was continued on Namenda. Initial consideration was to send to SNF but later she went home. Discharged in stable condition Labs reviewed Consults: Geriatrics Discharge Instructions: Diet: Adult diet Regular Activity: as tolerated Recommended Outpatient Tests: Disposition: Patient discharged in stable condition to Home. Greater than 40 minutes spent discharging the patient and coming up with patient discharge plan- labs reviewed Vitals: BP (!) 140/78 Pulse 72 Temp 36.7 C (98 F) (Temporal) Resp 17 SpO2 96% Pulse Ox: SpO2 Av % Min: 94 % Max: 96 % Supplemental O2: General appearance: No apparent distress, appears stated age and cooperative with exam Respiratory: Normal respiratory effort. Clear to auscultation, bilaterally without Rales/Wheezes/Rhonchi. Cardiovascular: Regular rate and rhythm with normal S1/S2 without murmurs, rubs or gallops. Abdomen: Soft, non-tender, non-distended with normal bowel sounds. No rebound or guarding. Musculoskeletal: No clubbing, cyanosis or edema bilaterally. Full range of motion without deformity. Skin: Skin color, texture, turgor normal. No rashes or lesions. Discharge Medications: Medication List CHANGE how you take these medications * citalopram 20 MG tablet Commonly known as: CeleXA What changed: Another medication with the same name was added. Make sure you understand how and when to take each. * citalopram 20 MG tablet Commonly known as: CeleXA Take 1 tablet (20 mg) by mouth daily. Do not start before February 18, 2023. Start taking on: February 18, 2023 What changed: You were already taking a medication with the same name, and this prescription was added. Make sure you understand how and when to take each. * This list has 2 medication(s) that are the same as other medications prescribed for you. Read the directions carefully, and ask your doctor or other care provider to review them with you. CONTINUE taking these medications aspirin 81 MG chewable tablet tamoxifen 20 MG tablet Commonly known as: Nolvadex Take 1 tablet (20 mg total) by mouth daily. STOP taking these medications ascorbic acid 500 mg chewable tablet Commonly known as: Vitamin C cholecalciferol 25 MCG (1000 UT) capsule Commonly known as: Vitamin D-3 HERBAL ENERGY COMPLEX PO meclizine 25 MG tablet Commonly known as: Antivert MULTIVITAMIN ADULT PO omeprazole [address] capsule Commonly known as: PriLOSEC Where to Get Your Medications These medications were sent to [facility] [address] [facility], [facility] [address] Hours: Thursday to Thursday 10 am to 6 pm citalopram 20 MG tablet Recommended Follow-up: [place] [facility] [address] [facility] [address] [facility] [address] Follow up [phone] Dementia follow up Complexity of Follow up: [] Moderate Complexity: follow up within 7-14 calendar days (88586) [x] Severe Complexity: follow up within 7 calendar days (34530) Follow up Testing, Pending results or Referrals at Transitional Care Visit: [x] yes [] No GENERAL ZONES GREEN ZONE: All Clear- Your Symptoms Are Under Control No recurrence of symptoms that led to hospitalization Able to do usual activities No fever No chest pain No shortness of breath This Means You Should: Continue taking your medications as prescribed Continue activity as tolerated Keep all doctor appointments YELLOW ZONE: Caution Recurrence of symptoms that led to hospitalization Fever of 100 degrees or higher Increased fatigue or restlessness Intolerant side-effects of medications Uneasy feeling or that something is wrong This Means You Should: Call your doctor for further instructions Either your PCP or specialist RED ZONE: Medical Alert Severe or unrelieved shortness of breath at rest Unrelieved chest pain Confusion or you can't think clearly This Means You Should Call 911 Immediately Instructions to MA: Please call patient on day after discharge (must document patient contacted within 2 business days of discharge). Follow up questions for MA: 1. Did you get medications filled and taking them as instructed from discharge? 2. Are you following your discharge instructions from your hospital stay? 3. Please confirm patient is scheduled for a follow up appointment within the above time frame. A total of more than 45 mins has been spent in discharging the patient. Signed: @ @ [facility] 02/10/2023, 11:26 AM This report was created using the [employer] Naturally Speaking voice-activated system. Despite prompt dictation and careful editorial review, there may be subtle contextual errors in this report, due to misrecognition of the spoken word. documented in this encounter [facility] 02-10-2023 Note Formatting of this n ote is different from the original. Images from the original note were not included. Care Management Progress Note Spoke with daughter in law Renetta. Discussed insurance denial. She would like pt to return home with home therapy. aboriginal liaison officer notified.. Pt attends [facility] 1x/wk, has family friend that checks on pt & Renetta is there in evenings. Family feels comfortable with pt returning home. Notified atternding & RN via secure chat. Discharge Milestones and Delays Expected Date/Time: 02/10/[address] discharge order Complete med reconciliation Case mgmt discharge readiness Clinical Stability Diagnsotic Workup Expected Discharge History Expected Date/Time Set By Reviewed At 02/10/2023 Gabriela Brown RN 02/10/2023 7:09 AM Auth pending for [facility] 02/09/2023 MARIAH Randle 02/09/2023 10:14 AM 02/06/2023 MARIAH Randle 02/06/2023 9:57 AM Plan for discharge today 02/06/2023 Stephane Grider MD 02/05/2023 9:47 AM 02/06/2023 Ana Seymour MD 02/04/2023 3:16 PM 02/06/2023 Ana Seymour MD 02/04/2023 5:49 AM Length of Stay (Days): 0 GMLOS: No GMLOS Documented [facility] 02-10-2023 Note Formatting of this n ote is different from the original. Images from the original note were not included. Care Management Progress Note Spoke with daughter in law Renetta. Discussed insurance denial. She would like pt to return home with home therapy. aboriginal liaison officer notified.. Pt attends [facility] 1x/wk, has family friend that checks on pt & Renetta is there in evenings. Family feels comfortable with pt returning home. Notified atternding & RN via secure chat. Discharge Milestones and Delays Expected Date/Time: 02/10/[address] discharge order Complete med reconciliation Case mgmt discharge readiness Clinical Stability Diagnsotic Workup Expected Discharge History Expected Date/Time Set By Reviewed At 02/10/2023 Gabriela Brown RN 02/10/2023 7:09 AM Auth pending for [facility] 02/09/2023 MARIAH Randle 02/09/2023 10:14 AM 02/06/2023 MARIAH Randle 02/06/2023 9:57 AM Plan for discharge today 02/06/2023 Stephane Grider MD 02/05/2023 9:47 AM 02/06/2023 Ana Seymour MD 02/04/2023 3:16 PM 02/06/2023 Ana Seymour MD 02/04/2023 5:49 AM Length of Stay (Days): 0 GMLOS: No GMLOS Documented [facility] 02-10-2023 Note Care Management Prog ress Note Spoke with daughter in law Renetta. Discussed insurance denial. She would like pt to return home with home therapy. aboriginal liaison officer notified.. Pt attends [facility] 1x/wk, has family friend that checks on pt & Renetta is there in evenings. Family feels comfortable with pt returning home. Notified atternding & RN via secure chat. Discharge Milestones and Delays Expected Date/Time: 02/10/[address] discharge order Complete med reconciliation Case mgmt discharge readiness Clinical Stability Diagnsotic Workup Expected Discharge History Expected Date/Time Set By Reviewed At 02/10/2023 Gabriela Brown RN 02/10/2023 7:09 AM Auth pending for [facility] 02/09/2023 MARIAH Randle 02/09/2023 10:14 AM 02/06/2023 MARIAH Randle 02/06/2023 9:57 AM Plan for discharge today 02/06/2023 Stephane Grider MD 02/05/2023 9:47 AM 02/06/2023 Ana Seymour MD 02/04/2023 3:16 PM 02/06/2023 Ana Seymour MD 02/04/2023 5:49 AM Length of Stay (Days): 0 GMLOS: No GMLOS Documented [facility] 02-09-2023 Note Formatting of this n ote is different from the original. Images from the original note were not included. Care Management Progress Note Received message from Jaimee that peer to peer is required. Referral [id number] need to do a peer to peer by 3:20 this afternoon. The phone number is . Attending notified via secure chat. Discharge Milestones and Delays Expected Date/Time: 02/09/[address] discharge order Complete med reconciliation Case mgmt discharge readiness Clinical Stability Diagnsotic Workup Expected Discharge History Expected Date/Time Set By Reviewed At 02/09/2023 MARIAH Randle 02/09/2023 10:14 AM Auth pending for [facility] 02/06/2023 MARIAH Randle 02/06/2023 9:57 AM Plan for discharge today 02/06/2023 Stephane Grider MD 02/05/2023 9:47 AM 02/06/2023 Ana Seymour MD 02/04/2023 3:16 PM 02/06/2023 Ana Seymour MD 02/04/2023 5:49 AM Length of Stay (Days): 0 GMLOS: No GMLOS Documented [facility] 02-09-2023 Note Formatting of this n ote is different from the original. Images from the original note were not included. Care Management Progress Note Received message from [place] that peer to peer is required. Referral [id number] need to do a peer to peer by 3:20 this afternoon. The phone number is . Attending notified via secure chat. Discharge Milestones and Delays Expected Date/Time: 02/09/[address] discharge order Complete med reconciliation Case mgmt discharge readiness Clinical Stability Diagnsotic Workup Expected Discharge History Expected Date/Time Set By Reviewed At 02/09/2023 MARIAH Randle 02/09/2023 10:14 AM Auth pending for [facility] 02/06/2023 MARIAH Randle 02/06/2023 9:57 AM Plan for discharge today 02/06/2023 Stephane Grider MD 02/05/2023 9:47 AM 02/06/2023 Ana Seymour MD 02/04/2023 3:16 PM 02/06/2023 Ana Seymour MD 02/04/2023 5:49 AM Length of Stay (Days): 0 GMLOS: No GMLOS Documented [facility] 02-09-2023 Note Care Management Prog ress Note Received message from [place] that peer to peer is required. Referral [id number] need to do a peer to peer by 3:20 this afternoon. The phone number is . Attending notified via secure chat. Discharge Milestones and Delays Expected Date/Time: 02/09/[address] discharge order Complete med reconciliation Case mgmt discharge readiness Clinical Stability Diagnsotic Workup Expected Discharge History Expected Date/Time Set By Reviewed At 02/09/2023 MARIAH Randle 02/09/2023 10:14 AM Auth pending for [facility] 02/06/2023 MARIAH Randle 02/06/2023 9:57 AM Plan for discharge today 02/06/2023 Stephane Grider MD 02/05/2023 9:47 AM 02/06/2023 Ana Seymour MD 02/04/2023 3:16 PM 02/06/2023 Ana Seymour MD 02/04/2023 5:49 AM Length of Stay (Days): 0 GMLOS: No GMLOS Documented [facility] 02-09-2023 Note Hospitalist Progress Note 02/09/2023 [phone]: Please page me ([phone]) for patient care issues. [phone]: Please page [facility] Hospitalist for any issues. Subjective: Admit Date: 02/04/2023 PCP: MADYSON COLLINS DO Room#: B1-151/B1-151 A Interval History: No overnight issues. Denies chest pain, sob, abdominal pain, nausea, vomiting, diarrhea, constipation, fevers, or chills. Denies any new complaints. Has history of dementia but communicates fine and answers questions appropriately Adult diet Regular @[id number]@ 24HR INTAKE/OUTPUT: Intake/Output Summary (Last 24 hours) at 02/09/2023 0913 Last data filed at 02/08/2023 0948 Gross per 24 hour Intake 220 ml Output -- Net 220 ml Past Medical History: Past Medical History: Diagnosis Date Acid reflux Anxiety Breast cancer (HCC) Hyperlipidemia LABS: CBC: No results for input(s): "WBC", "RBC", "HGB", "HCT", "MCV", "RDW", "PLT" in the last 72 hours. BMP: No results for input(s): "NA", "K", "CL", "CO2", "BUN", "CREATININE", "GLUCOSE", "CALCIUM", "ANIONGAP" in the last 72 hours. LIVER PROFILE: No results for input(s): "AST", "ALT", "BILITOT", "ALKPHOS", "PROT" in the last 72 hours. No lab exists for component: LABALBU PT/INR: No results for input(s): "PROTIME", "INR" in the last 72 hours. CARDIAC ENZYMES: No results for input(s): "TROPONINI" in the last 72 hours. Procalcitonin: No results found for: "PROCAL" COVID-19 PCR: No results for input(s): "COVID19" in the last 72 hours. Objective: Vitals: BP (!) 147/72 Pulse 65 Temp 37.2 ?C (98.9 ?F) (Temporal) Resp 16 SpO2 96% Pulse Ox: SpO2 Av.7 % Min: 94 % Max: 97 % Supplemental O2: General appearance: No apparent distress, appears stated age, HEENT: Eyes: No scleral icterus Oral: Tongue is semi-moist Cardiovascular: S1/S2 heard, RRR Respiratory: Clear to auscultation bilaterally Abdomen: Soft, non-tender, non-distended bowel sounds positive Musculoskeletal: No obvious deformities seen Skin: No visible rashes or lesions. Medications: aspirin, 81 mg, Oral, Daily [START ON 02/18/2023] citalopram, 20 mg, Oral, Daily citalopram, 30 mg, Oral, Daily enoxaparin, 40 mg, SubCUTAneous, Daily memantine, 10 mg, Oral, q AM And memantine, 5 mg, Oral, Nightly tamoxifen, 20 mg, Oral, Daily Assessment Functional decline Geriatrics on board - will need 24-7 support going forwards Dementia anemia Breast cancer GERD Hyperlipidemia Anxiety Wean Celexa 40 mg - 30 x 14 days then 20 mg afterwards. Plan [facility]/ for discharge planning. Referral sent to [facility]. Awaiting for auth. Continue all other tx the same. Toxic drug monitoring/narrow therapeutic index drug monitoring if any: # Drug name : # Route administered : # Method of monitoring : Extended Emergency Contact Information Primary Emergency Contact: Renetta Rosenthal Relation: Child Secondary Emergency Contact: Ted Domínguez Relation: Child MAXIMO WINTERS MD Division of Hospitalist Medicine Inpatient Medical Services/[facility] PAGER: [facility] 02-08-2023 Note Hospitalist Progress Note 02/08/2023 [phone]: Please page me ([phone]) for patient care issues. [phone]: Please page [facility] Hospitalist for any issues. Subjective: Admit Date: 02/04/2023 PCP: MADYSON COLLINS DO Room#: B1-151/B1-151 A Interval History: No overnight issues. Denies chest pain, sob, abdominal pain, nausea, vomiting, diarrhea, constipation, fevers, or chills. She is up in chair with family at bedside and again today asked "when am I going home". Denies any new complaints. Has history of dementia but communicates fine and answers questions appropriately Adult diet Regular @[id number]@ 24HR INTAKE/OUTPUT: Intake/Output Summary (Last 24 hours) at 02/08/2023 1057 Last data filed at 02/08/2023 0948 Gross per 24 hour Intake 220 ml Output -- Net 220 ml Past Medical History: Past Medical History: Diagnosis Date Acid reflux Anxiety Breast cancer (HCC) Hyperlipidemia LABS: CBC: Recent Labs 02/06/23 0336 WBC 6.5 RBC 3.31* HGB 10.1* HCT 30.5* MCV 92.1 RDW 13.3 PLT 189 BMP: Recent Labs 02/06/23 0336 NA 137 K 4.2 CL 109* CO2 25 BUN 20* CREATININE 0.78 GLUCOSE 93 CALCIUM 8.0* ANIONGAP 3 LIVER PROFILE: Recent Labs 02/06/23335 AST 42 ALT 17 BILITOT 0.3 ALKPHOS 58 PROT 5.8* PT/INR: No results for input(s): "PROTIME", "INR" in the last 72 hours. CARDIAC ENZYMES: No results for input(s): "TROPONINI" in the last 72 hours. Procalcitonin: No results found for: "PROCAL" COVID-19 PCR: No results for input(s): "COVID19" in the last 72 hours. Objective: Vitals: BP (!) 163/79 Pulse 78 Temp 36.7 ?C (98.1 ?F) (Temporal) Resp 14 SpO2 95% Pulse Ox: SpO2 Av % Min: 92 % Max: 97 % Supplemental O2: General appearance: No apparent distress, appears stated age, HEENT: Eyes: No scleral icterus Oral: Tongue is semi-moist Cardiovascular: S1/S2 heard, RRR Respiratory: Clear to auscultation bilaterally Abdomen: Soft, non-tender, non-distended bowel sounds positive Musculoskeletal: No obvious deformities seen Skin: No visible rashes or lesions. Medications: aspirin, 81 mg, Oral, Daily [START ON 02/18/2023] citalopram, 20 mg, Oral, Daily citalopram, 30 mg, Oral, Daily enoxaparin, 40 mg, SubCUTAneous, Daily memantine, 10 mg, Oral, q AM And memantine, 5 mg, Oral, Nightly tamoxifen, 20 mg, Oral, Daily Assessment Functional decline Geriatrics on board - will need 24-7 support going forwards Dementia anemia Breast cancer GERD Hyperlipidemia Anxiety Wean Celexa 40 mg - 30 x 14 days then 20 mg afterwards. Plan T[facility]/SW for discharge planning. Referral sent to [facility]. Awaiting for auth. Continue all other tx the same. Toxic drug monitoring/narrow therapeutic index drug monitoring if any: # Drug name : # Route administered : # Method of monitoring : Extended Emergency Contact Information Primary Emergency Contact: Renetta Rosenthal Relation: Child Secondary Emergency Contact: Ted Domínguez Relation: Child MAXIMO WINTERS MD Division of Hospitalist Medicine Inpatient Medical Services/[facility] PAGER: [facility] 02-08-2023 Note Formatting of this n ote might be different from the original. Reviewed careport and continue to await auth for CC. Will update attending and primary care nurse if received over the weekend and patient able to discharge.. [facility] 02-08-2023 Note Formatting of this n ote might be different from the original. Reviewed careport and continue to await auth for CC. Will update attending and primary care nurse if received over the weekend and patient able to discharge.. [facility] 02-08-2023 Plan of care note Problem: Pain - Adult Goal: Verbalizes/displays adequate comfort level or baseline comfort level Outcome: Progressing Problem: Safety - Adult Goal: Free from fall injury Outcome: Progressing Problem: Discharge Planning Goal: Discharge to home or other facility with appropriate resources Outcome: Progressing Problem: Chronic Conditions and Co-morbidities Goal: Patient's chronic conditions and co-morbidity symptoms are monitored and maintained or improved Outcome: Progressing Problem: Skin/Tissue Integrity - Adult Goal: Skin integrity remains intact Outcome: Progressing Goal: Incisions, wounds, or drain sites healing without S/S of infection Outcome: Progressing Goal: Oral mucous membranes remain intact Outcome: Progressing Problem: Musculoskeletal - Adult Goal: Return mobility to safest level of function Outcome: Progressing Goal: Maintain proper alignment of affected body part Outcome: Progressing Goal: Return ADL status to a safe level of function Outcome: Progressing [facility] 02-07-2023 Plan of care note Problem: Pain - Adult Goal: Verbalizes/displays adequate comfort level or baseline comfort level Outcome: Progressing Problem: Safety - Adult Goal: Free from fall injury Outcome: Progressing Problem: Discharge Planning Goal: Discharge to home or other facility with appropriate resources Outcome: Progressing [facility] 02-07-2023 Note Hospitalist Progress Note 02/07/2023 [phone]: Please page me ([phone]) for patient care issues. [phone]: Please page [facility] Hospitalist for any issues. Subjective: Admit Date: 02/04/2023 PCP: MADYSON COLLINS DO Room#: B1-151/B1-151 A Interval History: No overnight issues. Denies chest pain, sob, abdominal pain, nausea, vomiting, diarrhea, constipation, fevers, or chills. Asked "when am I going home". Denies any new complaints. Has history of dementia but communicates fine and answers questions appropriately Adult diet Regular @[id number]@ 24HR INTAKE/OUTPUT: No intake or output data in the 24 hours ending 02/07/23 1331 Past Medical History: Past Medical History: Diagnosis Date Acid reflux Anxiety Breast cancer (HCC) Hyperlipidemia LABS: CBC: Recent Labs 02/05/2362602/06/23335 WBC 7.0 6.5 RBC 3.67* 3.31* HGB 11.3* 10.1* HCT 34.0* 30.5* MCV 92.7 92.1 RDW 13.4 13.3 PLT 217 189 BMP: Recent Labs 02/05/2362602/06/23335 NA 138 137 K 4.2 4.2 CL 110* 109* CO2 21* 25 BUN 17 20* CREATININE 0.68 0.78 GLUCOSE 101* 93 CALCIUM 8.7 8.0* ANIONGAP 6 3 LIVER PROFILE: Recent Labs 02/05/2362602/06/23335 AST 39 42 ALT 19 17 BILITOT 0.5 0.3 ALKPHOS 70 58 PROT 6.7 5.8* PT/INR: No results for input(s): "PROTIME", "INR" in the last 72 hours. CARDIAC ENZYMES: No results for input(s): "TROPONINI" in the last 72 hours. Procalcitonin: No results found for: "PROCAL" COVID-19 PCR: No results for input(s): "COVID19" in the last 72 hours. Objective: Vitals: BP 113/66 (BP Location: Right arm, Patient Position: Lying) Pulse 76 Temp 36.6 ?C (97.9 ?F) (Temporal) Resp 18 SpO2 96% Pulse Ox: SpO2 Av % Min: 93 % Max: 96 % Supplemental O2: General appearance: No apparent distress, appears stated age, HEENT: Eyes: No scleral icterus Oral: Tongue is semi-moist Cardiovascular: S1/S2 heard, RRR Respiratory: Clear to auscultation bilaterally Abdomen: Soft, non-tender, non-distended bowel sounds positive Musculoskeletal: No obvious deformities seen Skin: No visible rashes or lesions. Medications: aspirin, 81 mg, Oral, Daily [START ON 02/18/2023] citalopram, 20 mg, Oral, Daily citalopram, 30 mg, Oral, Daily enoxaparin, 40 mg, SubCUTAneous, Daily memantine, 10 mg, Oral, q AM And memantine, 5 mg, Oral, Nightly tamoxifen, 20 mg, Oral, Daily Assessment Functional decline Geriatrics on board - will need 24-7 support going forwards Dementia anemia Breast cancer GERD Hyperlipidemia Anxiety Wean Celexa 40 mg - 30 x 14 days then 20 mg afterwards. Plan TCC/SW for discharge planning. Referral sent to [facility]. Awaiting for auth. Continue all other tx the same. Toxic drug monitoring/narrow therapeutic index drug monitoring if any: # Drug name : # Route administered : # Method of monitoring : Extended Emergency Contact Information Primary Emergency Contact: Renetta Rosenthal Relation: Child Secondary Emergency Contact: Ted Domínguez Relation: Child MAXIMO WINTERS MD Division of Hospitalist Medicine Inpatient Medical Services/[facility] PAGER: [facility] 02-07-2023 Hospital Discharg e instructions Ana Turner, WOOD TREATING INSPECTOR - 02/07/2023 7:02 AM EDT Continuity of Care Form Patient Name: Albina Brown : 1940 Admit date: 02/04/2023 Discharge date: Code Status Order: DNR-CCA Advance Directives: N Admitting Physician: Stephane Grider MD PCP: MADYSON COLLINS DO Discharging Nurse: Discharging Hospital Unit/Room#: B1-151/B1-151 A Discharging Unit Emergency Contact: Extended Emergency Contact Information Primary Emergency Contact: Renetta Rosenthal Relation: Child Secondary Emergency Contact: Ted Domínguez [place] Relation: Child Past Surgical History: Past Surgical History: Procedure Laterality Date BREAST BIOPSY BREAST LUMPECTOMY 11/21/2019 CATARACT EXTRACTION COLONOSCOPY TUBAL LIGATION WISDOM TOOTH EXTRACTION Immunization History: Immunization History Administered Date(s) Administered Moderna SARS-CoV-2 Vaccination 05/10/2020, 06/07/2020 Pfizer SARS-CoV-2 Vaccination 02/15/2021 Tdap 07/26/2017 Active Problems: Medical Problems Problem List * (Principal) Dementia (HCC) At risk for delirium Anxiety Altered mental status Malignant neoplasm of lower-outer quadrant of left breast of female, estrogen receptor positive (HCC) Isolation/Infection: No active isolations No active infections Nurse Assessment: Last Vital Signs: BP (!) 151/68 (BP Location: Left arm, Patient Position: Lying) Pulse 76 Temp 37.2 C (98.9 F) (Temporal) Resp 17 SpO2 96% Last documented pain score (0-10 scale): Last Weight: Wt Readings from Last 1 Encounters: 08/28/22 75.7 kg (166 lb 12.8 oz) Mental Status: {NORM Patient Mental Status:71136} IV Access: {NORM IV Access:73013} Nursing Mobility/ADLs: Walking {LUIS ADL:08041::"Independent"} Transfer {LUIS ADL:31150::"Independent"} Bathing {LUIS ADL:35351::"Independent"} Dressing {LUIS ADL:87623::"Independent"} Toileting {LUIS ADL:57156::"Independent"} Feeding {LUIS ADL:36344::"Independent"} Industrial Equipment Mechanic {LUIS ADL:68629::"Independent"} Med Delivery {yes/no:01268} Wound Care Documentation and Therapy: Elimination: Continence: Bowel: {yes/no:} Bladder: {yes/no:} Urinary Catheter: {NORM Urinary Catheter:44362} Colostomy/Ileostomy/Ileal Conduit: {YES / NO:} Date of Last BM: No intake or output data in the 24 hours ending 02/07/23 0700 No intake/output data recorded. Safety Concerns: {NORM Safety Concerns:90123} Impairments/Disabilities: {NORM Impairments/Disabilities:24839} Nutrition Therapy: Current Nutrition Therapy: {NORM Diet List:24337} Routes of Feeding: {routes of feedin} Liquids: {liquid consistency:85068} Daily Fluid Restriction: {daily fluid restriction:31187} Last Modified Barium Swallow with Video (Video Swallowing Test): {done not done:27141} Treatments at the Time of Hospital Discharge: Respiratory Treatments: Oxygen Therapy: {Therapy; copd oxygen:93341} Ventilator: {NORM Ventilator:58147} Rehab Therapies: {GEN THERAPY DISCIPLINE SCAL:8953920} Weight Bearing Status/Restrictions: {POD WEIGHT BEARIN} Other Medical Equipment (for information only, NOT a DME order): {Assistive Devices DME:81226} Other Treatments: Patient's personal belongings (please select all that are sent with patient): {NORM Patient Belongings:93627} RN SIGNATURE: {E-signature:08052} CASE MANAGEMENT/SOCIAL WORK SECTION Inpatient Status Date: 02/04/23 Readmission Risk Assessment Score: @READMISSIONRISKDETAILS@ Discharging to Facility/ Agency Name: [facility] Address: [address] [place] [address] Dialysis Facility (if applicable) Name: Address: Dialysis Schedule: Phone: Fax: Geriatric Social Work Professor/Boot Trimmer signature: ICIAN SECTION Prognosis: {Rehab Prognosis:69894} Condition at Discharge: {Patient Condition:65928} Rehab Potential (if transferring to Rehab): {Rehab Prognosis:66255} Recommended Labs or Other Treatments After Discharge: Physician Certification: I certify the above information and transfer of Albina Brown is necessary for the continuing treatment of the diagnosis listed and that she requires {NORM Level of Care:11809} for {greater less than:65040} 30 days. Update Admission H&P: {NORM Changes in H&P:13895} PHYSICIAN SIGNATURE: {E-signature:11269} documented in this encounter [facility] 02-07-2023 Note Formatting of this n ote might be different from the original. Reviewed chart and continue to await auth for [facility]. Will update attending and primary care nurse if received over the weekend and patient able to discharge. . [facility] 02-07-2023 Note Formatting of this n ote might be different from the original. Reviewed chart and continue to await auth for [facility]. Will update attending and primary care nurse if received over the weekend and patient able to discharge. . [facility] 02-07-2023 Plan of care note Problem: Pain - Adult Goal: Verbalizes/displays adequate comfort level or baseline comfort level Outcome: Progressing Problem: Safety - Adult Goal: Free from fall injury Outcome: Progressing Problem: Discharge Planning Goal: Discharge to home or other facility with appropriate resources Outcome: Progressing Problem: Chronic Conditions and Co-morbidities Goal: Patient's chronic conditions and co-morbidity symptoms are monitored and maintained or improved Outcome: Progressing Problem: Skin/Tissue Integrity - Adult Goal: Skin integrity remains intact Outcome: Progressing Goal: Incisions, wounds, or drain sites healing without S/S of infection Outcome: Progressing Goal: Oral mucous membranes remain intact Outcome: Progressing Problem: Musculoskeletal - Adult Goal: Return mobility to safest level of function Outcome: Progressing Goal: Maintain proper alignment of affected body part Outcome: Progressing Goal: Return ADL status to a safe level of function Outcome: Progressing [facility] 02-06-2023 Note Formatting of this n ote might be different from the original. Referral placed to [facility] via [facility] per [facility] request. Await review and response regarding ability to accept. TCC notified. [facility] 02-06-2023 Note Formatting of this n ote might be different from the original. Referral placed to [facility] via [facility] per [facility] request. Await review and response regarding ability to accept. TCC notified. [facility] 02-06-2023 Note Referral placed to [facility] via [facility] per [facility] request. Await review and response regarding ability to accept. TCC notified. [facility] 02-06-2023 Note Formatting of this n ote might be different from the original. Received call from daughter in [facility] & they would like [facility] for rehab. CLIENT EXPERIENCE MANAGER tasked to make referral. [facility] 02-06-2023 Note Formatting of this n ote might be different from the original. Received call from daughter in [facility] & they would like [facility] for rehab. CLIENT EXPERIENCE MANAGER tasked to make referral. [facility] 02-06-2023 Note Received call from anastacio maynard in [facility] & they would like [facility] for rehab. CLIENT EXPERIENCE MANAGER tasked to make referral. [facility] 02-06-2023 Note Hospitalist Progress Note 02/06/2023 [phone]: Please secure chat me on patient care issues. [phone]: Please secure chat [facility] Hospitalist for any issues. Subjective: Admit Date: 02/04/2023 PCP: MADYSON COLLINS DO Room#: B1-151/B1-151 A CHIEF COMPLAINT: Confusion Interval History: Patient denies any complaints at this time, is disorientated to place - time -both year - 2018, and date - December. No concerns with fever, chills, cough or congestion. She says she may be constipated but will let us know later in the day. Patient did fall the previous day and DIL was notified. Adult diet Regular @[id number]@ 24HR INTAKE/OUTPUT: No intake or output data in the 24 hours ending 02/06/23 1027 Past Medical History: Past Medical History: Diagnosis Date Acid reflux Anxiety Breast cancer (HCC) Hyperlipidemia LABS: CBC: Recent Labs 02/04/2321502/05/2362602/06/23335 WBC 9.1 7.0 6.5 RBC 3.99 3.67* 3.31* HGB 12.2 11.3* 10.1* HCT 37.0 34.0* 30.5* MCV 92.8 92.7 92.1 RDW 13.5 13.4 13.3 PLT 236 217 189 BMP: Recent Labs 02/04/2321502/05/2362602/06/23335 NA 138 138 137 K 4.0 4.2 4.2 CL 109* 110* 109* CO2 25 21* 25 BUN 23* 17 20* CREATININE 0.81 0.68 0.78 GLUCOSE 110* 101* 93 CALCIUM 9.3 8.7 8.0* ANIONGAP 4 6 3 LIVER PROFILE: Recent Labs 02/05/2362602/06/23335 AST 39 42 ALT 19 17 BILITOT 0.5 0.3 ALKPHOS 70 58 PROT 6.7 5.8* PT/INR: No results for input(s): "PROTIME", "INR" in the last 72 hours. CARDIAC ENZYMES: No results for input(s): "TROPONINI" in the last 72 hours. Procalcitonin: No results found for: "PROCAL" COVID-19 PCR: No results for input(s): "COVID19" in the last 72 hours. Objective: Vitals: BP (!) 151/78 Pulse 64 Temp 36.4 ?C (97.6 ?F) (Temporal) Resp 18 SpO2 95% Pulse Ox: SpO2 Av.6 % Min: 95 % Max: 97 % Supplemental O2: Physical Exam Vitals and nursing note reviewed. HENT: Mouth/Throat: Pharynx: Oropharynx is clear. Eyes: Conjunctiva/sclera: Conjunctivae normal. Pupils: Pupils are equal, round, and reactive to light. Cardiovascular: Rate and Rhythm: Normal rate. Heart sounds: No murmur heard. Pulmonary: Effort: Pulmonary effort is normal. No respiratory distress. Breath sounds: No wheezing or rales. Abdominal: General: Bowel sounds are normal. Tenderness: There is no abdominal tenderness. Musculoskeletal: Right lower leg: No edema. Left lower leg: No edema. Skin: General: Skin is warm and dry. Capillary Refill: Capillary refill takes less than 2 seconds. Coloration: Skin is pale. Neurological: General: No focal deficit present. Mental Status: She is alert. Medications: aspirin, 81 mg, Oral, Daily [START ON 02/18/2023] citalopram, 20 mg, Oral, Daily citalopram, 30 mg, Oral, Daily enoxaparin, 40 mg, SubCUTAneous, Daily memantine, 10 mg, Oral, q AM And memantine, 5 mg, Oral, Nightly tamoxifen, 20 mg, Oral, Daily Assessment Functional decline Geriatrics on board - will need 24-7 support going forwards Dementia anemia Breast cancer GERD Hyperlipidemia Anxiety Wean Celexa 40 mg - 30 x 14 days then 20 mg afterwards. Medical Decision Making 02/06 - Continue current treatment, pending discharge plan - family does not want assisted and are trying to arrange 24 hour help at home. Encourage family to make a discharge plan, no injury from fall from previous day, Geriatrics recommends weaning celexa given max dose is 20 mg, will need 24/7 supervision going forwards - family is aware. -am labs, replace lytes prn -increase activity -DVT prophylaxis: [] Lovenox [] Heparin [] SCDs [x] Encourage ambulation [] Already on Anticoagulation Anticipated Discharge - Date - - Location - Home with Home Health Care - Pending the following - decision by family and arrangement of any equipment needs Total time spent (which include face to face and non face to face encounters) : 35 minutes Toxic drug monitoring/narrow therapeutic index drug monitoring : # Drug name : NA # Route administered : NA # Method of monitoring : NA Extended Emergency Contact Information Primary Emergency Contact: Renetta Rosenthal Relation: Child Secondary Emergency Contact: SangTed castaneda Relation: Child Abby Gomez MD Division of Hospitalist Medicine [facility] PAGER: Lydia [facility] 02-06-2023 Plan of care note Problem: Pain - Adult Goal: Verbalizes/displays adequate comfort level or baseline comfort level Outcome: Progressing Problem: Safety - Adult Goal: Free from fall injury Outcome: Progressing Problem: Discharge Planning Goal: Discharge to home or other facility with appropriate resources Outcome: Progressing Problem: Chronic Conditions and Co-morbidities Goal: Patient's chronic conditions and co-morbidity symptoms are monitored and maintained or improved Outcome: Progressing Problem: Skin/Tissue Integrity - Adult Goal: Skin integrity remains intact Outcome: Progressing Goal: Incisions, wounds, or drain sites healing without S/S of infection Outcome: Progressing Goal: Oral mucous membranes remain intact Outcome: Progressing Problem: Musculoskeletal - Adult Goal: Return mobility to safest level of function Outcome: Progressing Goal: Maintain proper alignment of affected body part Outcome: Progressing Goal: Return ADL status to a safe level of function Outcome: Progressing [facility] 02-05-2023 Note Formatting of this n ote might be different from the original. Called by staff to pt's room for a fall. PT was returning from CT with transporter Dali when pt fell onto the floor while trying to sit onto chair. Pt states she did bump her head on armrest of chair. [employer] called and vital signs were obtained. Henrik from [employer] dwon to assess pt, along with nursing seismic prospecting supervisor Pearl, and Dr. Winters. Pt A&O to person and place, and denies pain at this time. Pt doesn't have any lacerations and denies headache, and/or dizziness. Dr. Winters cleared pt to get into chair. No new orders at this time. ALIX Weber notified of pt's fall. [facility] 02-05-2023 Note Formatting of this n ote might be different from the original. Called by staff to pt's room for a fall. PT was returning from CT with transporter Dali when pt fell onto the floor while trying to sit onto chair. Pt states she did bump her head on armrest of chair. [employer] called and vital signs were obtained. Henrik from [employer] dwon to assess pt, along with nursing seismic prospecting supervisor Pearl, and Dr. Winters. Pt A&O to person and place, and denies pain at this time. Pt doesn't have any lacerations and denies headache, and/or dizziness. Dr. Winters cleared pt to get into chair. No new orders at this time. ALIX Weber notified of pt's fall. T [facility] 02-05-2023 Note Formatting of this n ote might be different from the original. Paged to bedside r/t witnessed fall. Pt stated that she fell while transferring from the wheelchair to the bedside chair. Stated that she bumped her head on the padded armrest of the chair when she fell. Pt A+O to person and place. Pt denies any pain. No new lacerations, bumps or bruising. Dr. Olivas to bedside to clear pt to return to bed. No orders to follow. T [facility] 02-05-2023 Note Formatting of this n ote might be different from the original. Paged to bedside r/t witnessed fall. Pt stated that she fell while transferring from the wheelchair to the bedside chair. Stated that she bumped her head on the padded armrest of the chair when she fell. Pt A+O to person and place. Pt denies any pain. No new lacerations, bumps or bruising. Dr. Olivas to bedside to clear pt to return to bed. No orders to follow. [facility] 02-05-2023 Note Formatting of this n ote might be different from the original. Spoke with daughter in law Renetta regarding therapy evals & observation status. She would like to follow up with pt son who is currently working in [place]. They were under the impression from ER staff that they had 72 hours to decide on plan for her. Explained to her the observation is an outpt stay & that 24-48 hrs is the usual the limit. They do not want long-term placement at this time & are trying to arrange 24 hr help at home.She will follow up with pt son & then f/u with TCC when decisions are made. Assessment not completed as daughter in law was at work & limited on time. T [facility] 02-05-2023 Note Formatting of this n ote might be different from the original. Spoke with daughter in law Renetta regarding therapy evals & observation status. She would like to follow up with pt son who is currently working in [place]. They were under the impression from ER staff that they had 72 hours to decide on plan for her. Explained to her the observation is an outpt stay & that 24-48 hrs is the usual the limit. They do not want long-term placement at this time & are trying to arrange 24 hr help at home.She will follow up with pt son & then f/u with TCC when decisions are made. Assessment not completed as daughter in law was at work & limited on time. T [facility] 02-05-2023 Note Hospitalist Progress Note 02/05/2023 [phone]: Please secure chat me for patient care issues. [phone]: Please secure chat [facility] Hospitalist for any issues. Subjective: Admit Date: 02/04/2023 PCP: MADYSON COLLINS DO Room#: B1-151/B1-151 A Interval History: Up in chair at side of bed. Tolerating diet. Weak. She denies chest pain, sob, cough, abdominal pain, nausea, vomiting, diarrhea, constipation, fevers, or chills. D/w pt and RN separately. Adult diet Regular @[id number]@ 24HR INTAKE/OUTPUT: No intake or output data in the 24 hours ending 02/05/23 1138 Past Medical History: Past Medical History: Diagnosis Date Acid reflux Anxiety Breast cancer (HCC) Hyperlipidemia LABS: CBC: Recent Labs 02/04/23 0216 02/05/23 0627 WBC 9.1 7.0 RBC 3.99 3.67* HGB 12.2 11.3* HCT 37.0 34.0* MCV 92.8 92.7 RDW 13.5 13.4 PLT 236 217 BMP: Recent Labs 02/04/23 0216 02/05/23 0627 NA 138 138 K 4.0 4.2 CL 109* 110* CO2 25 21* BUN 23* 17 CREATININE 0.81 0.68 GLUCOSE 110* 101* CALCIUM 9.3 8.7 ANIONGAP 4 6 LIVER PROFILE: Recent Labs 02/05/23 0627 AST 39 ALT 19 BILITOT 0.5 ALKPHOS 70 PROT 6.7 PT/INR: No results for input(s): "PROTIME", "INR" in the last 72 hours. CARDIAC ENZYMES: No results for input(s): "TROPONINI" in the last 72 hours. Procalcitonin: No results found for: "PROCAL" COVID-19 PCR: No results for input(s): "COVID19" in the last 72 hours. Objective: Vitals: BP 120/63 Pulse 69 Temp 36.8 ?C (98.2 ?F) (Temporal) Resp 16 SpO2 97% Pulse Ox: SpO2 Av.8 % Min: 93 % Max: 100 % Physical Exam Vitals and nursing note reviewed. Constitutional: General: She is not in acute distress. HENT: Head: Normocephalic. Eyes: Extraocular Movements: Extraocular movements intact. Conjunctiva/sclera: Conjunctivae normal. Cardiovascular: Rate and Rhythm: Normal rate and regular rhythm. Pulses: Normal pulses. Pulmonary: Effort: Pulmonary effort is normal. Breath sounds: Normal breath sounds. Abdominal: General: Bowel sounds are normal. Palpations: Abdomen is soft. Musculoskeletal: General: Normal range of motion. Cervical back: Normal range of motion and neck supple. Skin: General: Skin is warm and dry. Neurological: Mental Status: She is alert. Mental status is at baseline. She is disoriented. Psychiatric: Mood and Affect: Mood normal. Medications: aspirin, 81 mg, Oral, Daily [START ON 02/18/2023] citalopram, 20 mg, Oral, Daily citalopram, 30 mg, Oral, Daily enoxaparin, 40 mg, SubCUTAneous, Daily memantine, 10 mg, Oral, q AM And memantine, 5 mg, Oral, Nightly tamoxifen, 20 mg, Oral, Daily Assessment Functional decline Dementia anemia Breast cancer GERD Hyperlipidemia Anxiety d/o Medical Decision Making Continue current tx and meds, follow up head CT, Geriatrics has seen, continue PT/OT, increase activity, follow up labs, monitor for delirium, discharge planning, see orders. -am labs, replace lytes prn -increase activity -DVT prophylaxis: [x] Lovenox [] Heparin [] SCDs [x] Encourage ambulation [] Already on Anticoagulation Anticipated Discharge - Date - 02/05-02/06 - Location - Skilled Facility vs home with home health care/24 hr assist - Pending the following - once arrangements finalized Total time spent (which include face to face and non face to face encounters) : 47 minutes Toxic drug monitoring/narrow therapeutic index drug monitoring : # Drug name : lovenox # Route administered : SQ # Method of monitoring : daily CBC and monitor for blood loss Extended Emergency Contact Information Primary Emergency Contact: Renetta Rosenthal Relation: Child Secondary Emergency Contact: Ted Domínguez Relation: Child STEPHANE GRIDER MD Division of Hospitalist Medicine [facility] PAGER: [facility] 02-05-2023 Note Formatting of this n ote might be different from the original. S/W, follow up Patient Dylaniver Lorenzo Lang called back. Precious did relay that they do have an independent aide that is set to be approved for the patient, the process will take about two weeks to complete. Precious did state patient family does watch over the patient consistently. Precious notes that since patient was placed in a Nursing facility ( [facility]) the patient has had a decline. Patient did pass away 10. Precious noted she will be discussing getting the patient more days at the [facility] with ALIX Weber, at least until patient aide is approved. I did update Unit S/W of the above. [facility] 02-05-2023 Note Formatting of this n ote might be different from the original. S/W, follow up Patient Waiver Lorenzo Lang called back. Precious did relay that they do have an independent aide that is set to be approved for the patient, the process will take about two weeks to complete. Precious did state patient family does watch over the patient consistently. Precious notes that since patient was placed in a Nursing facility ( [facility]) the patient has had a decline. Patient did pass away 10-4. Precious noted she will be discussing getting the patient more days at the [facility] with ALIX Weber, at least until patient aide is approved. I did update Unit S/W of the above. [facility] 02-05-2023 Note OCCUPATIONAL THERAPY [facility] Initial Evaluation Having reviewed the treatment plan and goals for this patient, I certify that the plan of care below is medically necessary and appropriate. Name/MRN: Albina Brown ([id number]) Evaluation Date: 02/05/2023 Date of : 1940 Admission Date: 02/04/2023 1:38 AM Age: 82 y.o. Room/Bed: B1-151/B1-151 A Discharge Recommendation: Home with Home OT, Home with 24/7 Assist, and if 24 hr SUP not available, would benefit from SNF for safety. Equipment Needed: none Assessment IMPRESSION: Pt in 02/04 with increased confusion and noted UTI. She was previously IND for ADLs, IADLs, functional transfers / mobility without device. She demos mild cognitive deficits, however demos good ability to participate in functional activity and OOB mobility. She is currently CGA for LB ADLs, SUP for seated UB ADLs, and CGA - SBA for functional transfers / mobility without a device. She would benefit from skilled OT services to address the below. Recommend planned discharge for HHC with 24 hr SUP. Should 24 hr SUP not be available, pt would benefit from placement for safety. Performance Deficits /Impairments: Decreased Functional Mobility, Decreased ADL status, Decreased Endurance, Decreased Balance, Decreased High Level IADLs, and Decreased Posture Prognosis: Good Decision Making: Medium Complexity Subjective Pleasant and cooperative. OK to see per RN. Up in chair following session with RN aware. Pain: Pt denies any current pain. Past Medical History: Past Medical History: Diagnosis Date Acid reflux Anxiety Breast cancer (HCC) Hyperlipidemia Past Surgical History: Past Surgical History: Procedure Laterality Date BREAST BIOPSY BREAST LUMPECTOMY 11/21/2019 CATARACT EXTRACTION COLONOSCOPY TUBAL LIGATION WISDOM TOOTH EXTRACTION Admission Diagnosis: Patient Active Problem List Diagnosis Date Noted Altered mental status 02/05/2023 Dementia (HCC) 02/04/2023 At risk for delirium 02/04/2023 Anxiety 02/04/2023 Malignant neoplasm of lower-outer quadrant of left breast of female, estrogen receptor positive (HCC) 12/15/2019 Medical Precautions: No active isolations Proper PPE donned/doffed in accordance with facility standards. Fall Risk: Jim Fall Risk Score: 85 (High Risk) Precautions/Restrictions: N/A Family/Caregiver Present: none Overall Cognitive Status: Exceptions - Arousal/alertness: appropriate responses to stimuli - Following commands: follows one step commands consistently - Attention span: appears intact - Memory: decreased recall of recent events - Safety judgement: decreased awareness of need for assistance - Problem solving: assistance required to generate solutions and assistance required to implement solutions - Insights: decreased awareness of deficits - Initiation: does not require cues - Sequencing: does not require cues Hx of dementia. Overall Orientation Status: Oriented to Place, Oriented to Person, and Disoriented to Time Pt reoriented to time during session, however was unable to recall at end of session. Social/Functional History Patient admitted from home. Lives With: Alone Type of Home: single family home Home Layout: Single Level Home Home Access: Stairs to Enter with Rails (# of stairs: 5) Bathroom Shower/Tub: Tub Only and Walk in Shower Toilet: Standard Home Equipment: none Homemaking Responsibilities: Independent Receives Help From: Family Active Transitional Studies Instructor: No Pt's has recently . Prior Level of Function ADL Assistance: Independent Ambulation Assistance: Independent Transfer Assistance: Independent Objective ADLs LE Dressing: Contact Guard No true LOB noted during OOB activity. She was able to thread BLE through hospital pants and manage up over hips in standing without physical assist. CGA overall for stability during standing activity. Pt demos good functional reach, strength, and endurance for completion of LB ADLs. She requires no cueing for sequencing or initiation at this time during ADL tasks. Based on her functional ability, anticipate that pt would require CGA for LB ADLs, and SUP for seated UB ADLs. MOD I for feeding. Upper Extremity Assessment AROM: WFL PROM: WFL Strength: WFL Vision: no visual deficits Hearing: normal Bed Mobility Supine to sit: Min Assist Scooting: SBA HOB elevated, increased time required to complete. No true LOB noted at this time with completion MIN A for stability and trunk control to reach EOB, however once seated partially upright, pt was able to square hips to EOB. Pt seated upright in recliner following session. Transfers/Functional Mobility Sit to stand: Contact Guard Stand to sit: SBA Sitting balance: Modified Independent Standing balance: SBA Functional mobility: SBA, Contact Guard No true LOB noted at this time with OOB activity. Pt completed sit<>stand from (more content not included)... [facility] 02-05-2023 Note PHYSICAL THERAPY [facility] Initial Evaluation Name/MRN: Albina Brown ([id number]) Evaluation Date: 02/05/2023 Date of : 1940 Admission Date: 02/04/2023 1:38 AM Age: 82 y.o. Room/Bed: B1-151/B1151 A Having reviewed the treatment plan and goals for this patient, I certify that the plan of care below is medically necessary and appropriate. Discharge Recommendation: Home with Home PT, Home with 24/7 Assist, Continue to assess pending progress, and if 24 hour assist is not available patient may require SNF due to significant safety concerns Equipment Needed: TBD with further treatment as patient does not currently own medical equipment Assessment IMPRESSION: Pt presents with decreased functional mobility, decreased strength, decreased safety awareness, decreased endurance and impaired balance. Pt has decreased standing balance requiring 1 person for safety at this time placing her at an increased risk of falling. Pt could benefit from continued PT in order to address her decreased functional mobility, strength, balance and safety. Pt has medical history as indicated below that contributes to her clinical presentation. At baseline patient is functionally independent with no device. Currently patient is CGA/SBA with no device and is anticipated to progress with acute therapies and medical management in order to return home with 24 hour assist and [facility] PT. Diagnosis: Patient admitted with confusion and found to be wondering, advancing dementia and UTI. CT negative. Prognosis: good Performance Deficits /Impairments: Decreased Functional Mobility, Decreased Strength, Decreased Safety Awareness, Decreased Cognition, Decreased Endurance, and Decreased Balance Decision Making: Medium Complexity Subjective Patient pleasant agreeable to therapy session this date. Observation: no lines present Pain: Pt denies any current pain. Past Medical History: Past Medical History: Diagnosis Date Acid reflux Anxiety Breast cancer (HCC) Hyperlipidemia Past Surgical History: Past Surgical History: Procedure Laterality Date BREAST BIOPSY BREAST LUMPECTOMY 11/21/2019 CATARACT EXTRACTION COLONOSCOPY TUBAL LIGATION WISDOM TOOTH EXTRACTION Admission Diagnosis: Patient Active Problem List Diagnosis Date Noted Altered mental status 02/05/2023 Dementia (HCC) 02/04/2023 At risk for delirium 02/04/2023 Anxiety 02/04/2023 Malignant neoplasm of lower-outer quadrant of left breast of female, estrogen receptor positive ([facility]) 12/15/2019 Medical Precautions: No active isolations Proper PPE donned/doffed in accordance with facility standards. Fall Risk: Jim Fall Risk Score: 85 (High Risk) Precautions/Restrictions: N/A Family/Caregiver Present: none Overall Cognitive Status: Exceptions - Memory: decreased recall of recent events and decreased short term memory - Safety judgement: decreased awareness of need for assistance and decreased awareness of need for safety - Problem solving: decreased awareness of errors - Insights: decreased awareness of deficits h/o dementia Overall Orientation Status: Oriented to Place, Oriented to Situation, and Oriented to Person - reoriented to time within session, patient unable to recall month and year minutes later when prompted Vision: wears glasses at all times and and are being used during the eval Hearing: normal Social/Functional History Patient admitted from home. Lives With: Alone - 2 weeks ago Type of Home: single family home Home Layout: Single Level Home Home Access: Stairs to Enter with Rails (# of stairs: 5) Bathroom Shower/Tub: Tub Only and Walk in Shower Toilet: Standard Home Equipment: none Homemaking Responsibilities: Independent Receives Help From: Family and Home Health Aid Active Transitional Studies Instructor: No Prior Level of Function ADL Assistance: Independent Ambulation Assistance: Independent Device(s) used: none Transfer Assistance: Independent Objective Lower Extremity Assessment AROM: WFL Strength: WFL - generalized weakness noted with mobility Bed Mobility: Supine to sit: Min Assist, to upright trunk Sit to supine: NT patient up in recliner end of session Scooting: SBA Denies dizziness with positional changes. Transfers Sit to stand: Contact Guard, to no device from EOB Stand to sit: SBA Denies dizziness on initial stance. No true Lob or instability on initial stance noted with wide YOLANDA and prolonged UE support on EOB during transition. Ambulation Ambulation 1 Assistive device(s) used: none Assist level: SBA, Contact Guard Distance (ft): 200 ft x 1 Quality of gait: reciprocal stepping, B foot clearance, equal step length, slow delmer, postural sway, path deviations Pt demonstrates slight instability with no device but no overall LOB. Patient may benefit from a device to improve stability. Outcome Measures AM-PAC How much HELP from another (more content not included)... [facility] 02-05-2023 Note Formatting of this n ote might be different from the original. SW consult for possible placement vs return home with home health care. ED SW met with patient and family. PT/OT ordered. Covering TCC to complete initial case management assessment. TCC to also follow for possible placement once therapy assesses and makes their recommendations. SW to follow for any discharge barriers. [facility] 02-05-2023 Note Formatting of this n ote might be different from the original. SW consult for possible placement vs return home with home health care. ED SW met with patient and family. PT/OT ordered. Covering TCC to complete initial case management assessment. TCC to also follow for possible placement once therapy assesses and makes their recommendations. SW to follow for any discharge barriers. [facility] 02-04-2023 Plan of care note Problem: Pain - Adult Goal: Verbalizes/displays adequate comfort level or baseline comfort level Outcome: Progressing Problem: Safety - Adult Goal: Free from fall injury Outcome: Progressing Problem: Discharge Planning Goal: Discharge to home or other facility with appropriate resources Outcome: Progressing [facility] 02-04-2023 Note Formatting of this n ote might be different from the original. Seen and examined. Chart/labs/tests reviewed. D/w pt and son at bedside. D/w Geriatrics via secure chat. Please see H&P done by Dr Farmer earlier today for complete details. [facility] 02-04-2023 Note Formatting of this n ote might be different from the original. Seen and examined. Chart/labs/tests reviewed. D/w pt and son at bedside. D/w Geriatrics via secure chat. Please see H&P done by Dr Farmer earlier today for complete details. [facility] 02-04-2023 Note Formatting of this n ote might be different from the original. S/W, follow up LVM for patient DIL Renetta, contact info provided for a call back. [facility] 02-04-2023 Note Formatting of this n ote might be different from the original. S/W, follow up LVM for patient DIL Renetta, contact info provided for a call back. [facility] 02-04-2023 Consult note Associated Order (s): IP CONSULT TO GERIATRICS Images from the original note were not included. [facility] Geriatric Medicine Inpatient Consult Service Admission Date: 02/04/2023 Admission Status: OBSERVATION Chief Complaint: Confusion, wandering Reason for Appointment Geriatrics consulted for Dementia Assessment/Plan Principal Problem: Advancing dementia (HCC) Cognitive decline - patient scored 14/30 on MMSE today - 3-4 year history of memory problems that have been gradually worsening over time. Concerning for Alzheimer's dementia - continue memantine - takes namenda XR 21 mg at home. Since XR version is not available in hospital, will give Namenda IR 10 mg in AM and 5 mg in PM - check TSH, B12, head CT - social work consult to help with either assisted living placement vs home resources, patient will need 24 hour supervision due to wandering, medication compliance - if patient returns home, recommend outpatient follow up with [facility] 4 weeks after return home. History of falls, debility - recommend PT/OT consult - check vitamin D level - fall precautions - May have had fall recently, checking ct head as noted above Anxiety - patient taking citalopram 40 mg daily, recommended max dose is 20 mg for patients over 60. - recommend decreasing dose for 30 mg for 2 weeks then decreasing to 20 mg daily At Risk for Delirium -Risk factors include: hospitalization, cognitive decline, possible UTI and falls -Melatonin nightly prn insomnia -Delirium Protocol -Avoid sedating/anticholinergic medications -Encourage family visits -Encourage sleep hygiene -Minimize barriers to nutrition -Optimize sensory input and access to assistive devices where indicated -Encourage time up in chair - including at meals - as able -Unless contraindicated, encourage regular ambulation with assistance -D/c Cespedes, restraints, IV lines, as able Subjective: HPI 82 y.o. year-old female presented from home for confusion and wandering. Patient has a history of memory problems, now living alone since her 2 weeks ago. She has had 2 episodes in the past few days during which she left her home and was found wandering, recently found lying on the side of the road at 1:00 am. Patient denies falling, but her son is concerned that she actually did fall. Patient denied any pain or other symptoms today. Geriatrics ED screen positive for: memory loss, lives alone/needs help at home, falls or trouble walking, and takes 5 or more medicines daily Conversation with caregiver: son. Ted, and [id number] Renetta - patient's 2 weeks ago, patient not fully aware and keeps saying that she needs to get home to see her . - she has been having worsening memory problems over the past 3-4 years - cameras in the home and outside, patient needs to be called multiple times a day to be reminded to eat meals, take medications, and go to bed - they have hired an aid to come help the patient 3 days a week, recently approved for 11 hours more through [facility] Advance Care Planning Healthcare Power ofAttorney: Yes Financial Power of Tongue Carrier: Yes Living Will:Yes Code Status: DNR-CCA, ok for intubation and ICU transfer No Known Allergies Current Facility-Administered Medications: acetaminophen (Tylenol) tablet 650 mg, 650 mg, Oral, q6h PRN OR acetaminophen (Tylenol) suppository 650 mg, 650 mg, Rectal, q6h PRN, Philippe Farmer MD aspirin chewable tablet 81 mg, 81 mg, Oral, Daily, Philippe Farmer MD, 81 mg at 02/04/23 0959 citalopram (CeleXA) tablet 40 mg, 40 mg, Oral, Daily, Philippe Farmer MD, 40 mg at 02/04/23 0959 enoxaparin (Lovenox) syringe 40 mg, 40 mg, SubCUTAneous, Daily, Philippe Farmer MD, 40 mg at 02/04/23 0900 ondansetron ODT (Zofran-ODT) disintegrating tablet 4 mg, 4 mg, Oral, q8h PRN OR ondansetron (Zofran) injection 4 mg, 4 mg, IntraVENous, q6h PRN, Philippe Farmer MD polyethylene glycol (PEG) 3350 (Miralax) packet 17 g, 17 g, Oral, Daily PRN, Philippe Farmer MD tamoxifen (Nolvadex) chemo tablet 20 mg, 20 mg, Oral, Daily, Philippe Farmer MD Current Outpatient Medications: ascorbic acid (Vitamin C) 500 mg chewable tablet, Chew 500 mg in the morning., Disp: , Rfl: aspirin 81 MG chewable tablet, Chew 81 mg in the morning., Disp: , Rfl: cholecalciferol (Vitamin D-3) 25 MCG (1000 UT) capsule, Take 1 capsule by mouth in the morning., Disp: , Rfl: citalopram (CeleXA) 20 MG tablet, , Disp: , Rfl: meclizine (Antivert) 25 MG tablet, Take 1 tablet by mouth 3 times daily as needed., Disp: , Rfl: Misc Natural Products (HERBAL ENERGY COMPLEX PO), Take by mouth daily. Geovanna Umanzor- herbal, Disp: , Rfl: Multiple Vitamin (MULTIVITAMIN ADULT PO), Take 1 tablet by mouth in the morning., Disp: , Rfl: omeprazole (PriLOSEC) [address] capsule, , Disp: , Rfl: tamoxifen (Nolvadex) 20 MG tablet, Take 1 tablet (20 mg total) by mouth daily., Disp: 90 tablet, Rfl: 3 Past Medical History: Diagnosis Date Acid reflux Anxiety Breast cancer (HCC) Hyperlipidemia Past Surgical History: Procedure Laterality Date BREAST BIOPSY BREAST LUMPECTOMY 11/21/2019 CATARACT EXTRACTION COLONOSCOPY TUBAL LIGATION WISDOM TOOTH EXTRACTION Social History Social History Tobacco Use Smoking status: Never Smokeless tobacco: Never Substance Use Topics Alcohol use: Not on file Social History Social History Narrative Not on file Patient Currently Lives: house Level of FamilySupport: The patient receives support from her daughter and son. Community Resources[facility] Elder Abuse: no Education Level: High School graduate Family History No family history on file. No family status information on file. Parents are Review of Systems Constitutional: Negative for activity change, appetite change and fatigue. HENT: Negative for congestion and rhinorrhea. Respiratory: Negative for cough and shortness of breath. Cardiovascular: Negative for chest pain and leg swelling. Gastrointestinal: Negative for abdominal pain, constipation, diarrhea, nausea and vomiting. Genitourinary: Negative for dysuria and hematuria. Musculoskeletal: Negative for arthralgias, gait problem and myalgias. Neurological: Negative for weakness, numbness and headaches. Psychiatric/Behavioral: Positive for confusion and sleep disturbance. Negative for agitation, behavioral problems and hallucinations. Functional Status (I: Independent, A: Assisted, D: Dependent) ADLs I A D Notes Bathing [x] [] [] Dressing [x] [] [] Toileting [x] [] [] Increasing problem with urinary incontinence, not voiding frequently enough Transfers [x] [] [] Feeding [x] [] [] Ambulation [x] [] [] Assistive devices: none IADLs I A D { Telephone [] [x] [] Some difficulty making calls, can talk on the phone, knows 911 Transportation [] [] [x] Driving safety concerns: NA - not driving for the past few months, got lost driving to visit her in the longterm a few minutes away and ended up past [place] near [place] Shopping [] [] [x] Daughter and son shop for her Meal prep [] [x] [] Patient needs to be reminded to heat up microwave meals, daughter calls her multiples times a day and watches on camera to make sure patient is compliant Housework [] [x] [] Medications [] [x] [] Daughter organizes pillbox, patient takes meds out of pillbox Finances [] [] [x] Daughter and son manage finances Objective: BP 138/58 (BP Location: Left arm, Patient Position: Sitting) Pulse 74 Temp 36.6 C (97.9 F) (Oral) Resp 14 SpO2 98% No intake or output data in the 24 hours ending 02/04/23 1202 Wt Readings from Last 3 Encounters: 08/28/22 166 lb 12.8 oz (75.7 kg) 02/24/22 165 lb 14.4 oz (75.3 kg) 01/21/22 163 lb 9.6 oz (74.2 kg) Physical Exam Constitutional: General: She is not in acute distress. HENT: Nose: No congestion or rhinorrhea. Eyes: Extraocular Movements: Extraocular movements intact. Cardiovascular: Rate and Rhythm: Normal rate and regular rhythm. Heart sounds: Murmur heard. Pulmonary: Effort: No respiratory distress. Breath sounds: No wheezing, rhonchi or rales. Abdominal: General: Bowel sounds are normal. Palpations: Abdomen is soft. Tenderness: There is no abdominal tenderness. There is no right CVA tenderness or left CVA tenderness. Musculoskeletal: General: No tenderness. Neurological: Mental Status: She is alert. She is disoriented. Cranial Nerves: No cranial nerve deficit. Sensory: No sensory deficit. Motor: No weakness. Psychiatric: Mood and Affect: Mood normal. Cognition and Memory: Memory is impaired. Mini-Mental Status Exam: Domains Points Correct Oriented to: Season STATE, COUNTY, TOWN, and FLOOR 5 Registration (immediate recall) Apple, Table, Elisha # of Trials: 1 3 Serial 7s Use if 8th grade education or better 93, 86, 79, 72, 65 0 WORLD Backwards Use if <8th grade education D L R O W Not used Delayed 3 item recall Apple, Table, Elisha 0 Repetition Repeat after me: NO IFS, ANDS, OR BUTS 1 3 Step Command Take paper in right hand, fold it in half, & set on floor 2 Naming Watch Pen 2 Reading Read & Obey Present: "Close your eyes" 1 Write a sentence 0 Copy Design (overlapping pentagons) 0 MMSE Score: Clock Drawing Test: Correct Elements (1 pt each): Numbers are drawn inside the clock [place] Total Score 04/26 Time Instructions: Ten past eleven Scores < 5 out of 7 correlate with significantly more driving errors J Gen Wellness Instructor Med 2005; 20:240-244 Labs and Imaging: Recent Results (from the past 24 hour(s)) CBC auto differential Collection Time: 02/04/23 2:16 AM Result Value Ref Range Auto WBC 9.1 3.6 - 10.7 10*3/uL RBC 3.99 3.8 - 5.20 10*6/uL Hemoglobin 12.2 11.7 - 16.0 g/dL Hematocrit 37.0 35.0 - 47.0 % MCV 92.8 80.0 - 98.0 fL MCH 30.5 26.0 - 34.0 pg MCHC 32.9 32.0 - 36.0 % RDW 13.5 11.5 - 14.5 % Platelets 236 140 - 440 10*3/uL MPV 7.7 7.4 - 12.4 fL nRBC 0.0 0.0 - 2.0 /100 WBCs Neutrophils Relative 56.4 40.0 - 80.0 % Lymphocytes Relative 32.0 20.0 - 40.0 % Monocytes Relative 8.3 2.0 - 10.0 % Eosinophils Relative 2.3 1.0 - 6.0 % Basophils Relative 1.0 0.0 - 2.0 % Neutrophils Absolute 5.1 1.8 - 7.0 10*3/uL Lymphocytes Absolute 2.9 1.0 - 4.3 10*3/uL Monocytes Absolute 0.8 0.0 - 0.8 10*3/uL Eosinophils Absolute 0.2 0.0 - 0.5 10*3/uL Basophils Absolute 0.1 0.0 - 0.2 10*3/uL Basic metabolic panel Collection Time: 02/04/23 2:16 AM Result Value Ref Range SODIUM 138 135 - 145 mmol/L POTASSIUM 4.0 3.5 - 5.1 mmol/L CHLORIDE 109 (H) 98 - 107 mmol/L CARBON DIOXIDE 25 22 - 30 mmol/L UREA NITROGEN 23 (H) 7 - 17 mg/dL CREATININE 0.81 0.52 - 1.04 mg/dL GLUCOSE 110 (H) 70 - 100 mg/dL CALCIUM 9.3 8.4 - 10.4 mg/dL ANION GAP 4 3 - 13 mmol/L eGFR 73.0 >60.0 mL/min/1.73m*2 Complete Urinalysis Collection Time: 02/04/23 3:30 AM Result Value Ref Range Color, Urine Dark Yellow (A) Lt. Yellow Clarity, Urine Turbid (A) Clear pH, Urine 5.5 5.0 - 8.0 pH Leukocytes, Urine 500 (A) Negative Soni/uL Nitrite, Urine Negative Negative Protein, Urine Negative Negative mg/dL Glucose, Urine Normal Normal (<70) mg/dL Bilirubin, Urine Negative Negative mg/dL Ketones, Urine Negative Negative mg/dL Urobilinogen, Urine Normal Normal (0-1) mg/dL Blood, Urine Negative Negative mg/dL RBC, Urine 3-5 (A) 0 - 2 /HPF WBC, Urine 26-50 (A) 0 - 5 /HPF Squamous Epithelial, Urine 11-25 (A) 3 - 5 /HPF Bacteria, Urine Few (A) Negative /HPF Mucus, Urine Few Negative /LPF Hyaline Casts, Urine 6-10 (A) Negative /LPF SPECIFIC GRAVITY OF URINE (NUMERIC) 1.020 1.005 - 1.030 No results found for: "TSH" No components found for: "B12" No results found for: "VITD25" Reviewed: active problem list, medication list, family history, social history, notes from last encounter, lab results, imaging Follow-up: will follow with you Associated attestation - Regina Yu MD - 02/04/2023 2:55 PM EDT Attending Supervising Physician s Attestation Statement I saw and evaluated the patient. I discussed the findings and plans with Geriatric fellow and agree as documented in his note. Changes and updates in blue. Albina Brown is an 82 year old female with PMH of anxiety, hld, breast cancer (on Tamoxifen, follows with Dr Carlson), acid reflux who presented to hospital after being found wandering outside. This occurred twice recently. She is noted to be very forgetful - family reports long-standing memory issues. Family reports she had been living alone and family would come over to her house to help with taking her medications. Patient's recently in early January. She does not remember that he Reviewed H and P and ER notes CBC: wnl BMP: BUN 23 Tsh within normal limits Vitamin b12 within normal limits Patient pleasantly forgetful. Does not remember why she is in the hospital. Poor insight overall. A/P Dementia -likely Alzheimer's Disease -needs 24/7 supervision going forward - discussed this with son -will consult social work -tsh and vitamin b12 within normal limits -continue namenda Anxiety -she is on celexa 40 mg daily. The maximum recommended dose of celexa is geriatric population is 20 mg daily due to risk of qtc prolongation. Lower to 30 mg daily x 14 days then 20 mg daily thereafter At risk for delirium -recommend delirium protocol [employer] Phone: 02-04-2023 Consult note Associated Order (s): IP CONSULT TO GERIATRICS Images from the original note were not included. [facility] Geriatric Medicine Inpatient Consult Service Admission Date: 02/04/2023 Admission Status: OBSERVATION Chief Complaint: Confusion, wandering Reason for Appointment Geriatrics consulted for Dementia Assessment/Plan Principal Problem: Advancing dementia (HCC) Cognitive decline - patient scored 14/30 on MMSE today - 3-4 year history of memory problems that have been gradually worsening over time. Concerning for Alzheimer's dementia - continue memantine - takes namenda XR 21 mg at home. Since XR version is not available in hospital, will give Namenda IR 10 mg in AM and 5 mg in PM - check TSH, B12, head CT - social work consult to help with either assisted living placement vs home resources, patient will need 24 hour supervision due to wandering, medication compliance - if patient returns home, recommend outpatient follow up with [facility] 4 weeks after return home. History of falls, debility - recommend PT/OT consult - check vitamin D level - fall precautions - May have had fall recently, checking ct head as noted above Anxiety - patient taking citalopram 40 mg daily, recommended max dose is 20 mg for patients over 60. - recommend decreasing dose for 30 mg for 2 weeks then decreasing to 20 mg daily At Risk for Delirium -Risk factors include: hospitalization, cognitive decline, possible UTI and falls -Melatonin nightly prn insomnia -Delirium Protocol -Avoid sedating/anticholinergic medications -Encourage family visits -Encourage sleep hygiene -Minimize barriers to nutrition -Optimize sensory input and access to assistive devices where indicated -Encourage time up in chair - including at meals - as able -Unless contraindicated, encourage regular ambulation with assistance -D/c Cespedes, restraints, IV lines, as able Subjective: HPI 82 y.o. year-old female presented from home for confusion and wandering. Patient has a history of memory problems, now living alone since her 2 weeks ago. She has had 2 episodes in the past few days during which she left her home and was found wandering, recently found lying on the side of the road at 1:00 am. Patient denies falling, but her son is concerned that she actually did fall. Patient denied any pain or other symptoms today. Geriatrics ED screen positive for: memory loss, lives alone/needs help at home, falls or trouble walking, and takes 5 or more medicines daily Conversation with caregiver: son. Ted, and [id number] Renetta - patient's 2 weeks ago, patient not fully aware and keeps saying that she needs to get home to see her . - she has been having worsening memory problems over the past 3-4 years - cameras in the home and outside, patient needs to be called multiple times a day to be reminded to eat meals, take medications, and go to bed - they have hired an aid to come help the patient 3 days a week, recently approved for 11 hours more through [facility] Advance Care Planning Healthcare Power ofAttorney: Yes Financial Power of Tongue Carrier: Yes Living Will:Yes Code Status: DNR-CCA, ok for intubation and ICU transfer No Known Allergies Current Facility-Administered Medications: acetaminophen (Tylenol) tablet 650 mg, 650 mg, Oral, q6h PRN OR acetaminophen (Tylenol) suppository 650 mg, 650 mg, Rectal, q6h PRN, Philippe Farmer MD aspirin chewable tablet 81 mg, 81 mg, Oral, Daily, Philippe Farmer MD, 81 mg at 02/04/23 0959 citalopram (CeleXA) tablet 40 mg, 40 mg, Oral, Daily, Philippe Farmer MD, 40 mg at 02/04/23 0959 enoxaparin (Lovenox) syringe 40 mg, 40 mg, SubCUTAneous, Daily, Philippe Farmer MD, 40 mg at 02/04/23 0900 ondansetron ODT (Zofran-ODT) disintegrating tablet 4 mg, 4 mg, Oral, q8h PRN OR ondansetron (Zofran) injection 4 mg, 4 mg, IntraVENous, q6h PRN, Philippe Farmer MD polyethylene glycol (PEG) 3350 (Miralax) packet 17 g, 17 g, Oral, Daily PRN, Philippe Farmer MD tamoxifen (Nolvadex) chemo tablet 20 mg, 20 mg, Oral, Daily, Philippe Farmer MD Current Outpatient Medications: ascorbic acid (Vitamin C) 500 mg chewable tablet, Chew 500 mg in the morning., Disp: , Rfl: aspirin 81 MG chewable tablet, Chew 81 mg in the morning., Disp: , Rfl: cholecalciferol (Vitamin D-3) 25 MCG (1000 UT) capsule, Take 1 capsule by mouth in the morning., Disp: , Rfl: citalopram (CeleXA) 20 MG tablet, , Disp: , Rfl: meclizine (Antivert) 25 MG tablet, Take 1 tablet by mouth 3 times daily as needed., Disp: , Rfl: Misc Natural Products (HERBAL ENERGY COMPLEX PO), Take by mouth daily. Lions Noé- herbal, Disp: , Rfl: Multiple Vitamin (MULTIVITAMIN ADULT PO), Take 1 tablet by mouth in the morning., Disp: , Rfl: omeprazole (PriLOSEC) [address] capsule, , Disp: , Rfl: tamoxifen (Nolvadex) 20 MG tablet, Take 1 tablet (20 mg total) by mouth daily., Disp: 90 tablet, Rfl: 3 Past Medical History: Diagnosis Date Acid reflux Anxiety Breast cancer (HCC) Hyperlipidemia Past Surgical History: Procedure Laterality Date BREAST BIOPSY BREAST LUMPECTOMY 11/21/2019 CATARACT EXTRACTION COLONOSCOPY TUBAL LIGATION WISDOM TOOTH EXTRACTION Social History Social History Tobacco Use Smoking status: Never Smokeless tobacco: Never Substance Use Topics Alcohol use: Not on file Social History Social History Narrative Not on file Patient Currently Lives: house Level of FamilySupport: The patient receives support from her daughter and son. Community Resources: [facility] Aide Elder Abuse: no Education Level: High School graduate Family History No family history on file. No family status information on file. Parents are Review of Systems Constitutional: Negative for activity change, appetite change and fatigue. HENT: Negative for congestion and rhinorrhea. Respiratory: Negative for cough and shortness of breath. Cardiovascular: Negative for chest pain and leg swelling. Gastrointestinal: Negative for abdominal pain, constipation, diarrhea, nausea and vomiting. Genitourinary: Negative for dysuria and hematuria. Musculoskeletal: Negative for arthralgias, gait problem and myalgias. Neurological: Negative for weakness, numbness and headaches. Psychiatric/Behavioral: Positive for confusion and sleep disturbance. Negative for agitation, behavioral problems and hallucinations. Functional Status (I: Independent, A: Assisted, D: Dependent) ADLs I A D Notes Bathing [x] [] [] Dressing [x] [] [] Toileting [x] [] [] Increasing problem with urinary incontinence, not voiding frequently enough Transfers [x] [] [] Feeding [x] [] [] Ambulation [x] [] [] Assistive devices: none IADLs I A D { Telephone [] [x] [] Some difficulty making calls, can talk on the phone, knows 911 Transportation [] [] [x] Driving safety concerns: NA - not driving for the past few months, got lost driving to visit her in the longterm a few minutes away and ended up past [facility] Shopping [] [] [x] Daughter and son shop for her Meal prep [] [x] [] Patient needs to be reminded to heat up microwave meals, daughter calls her multiples times a day and watches on camera to make sure patient is compliant Housework [] [x] [] Medications [] [x] [] Daughter organizes pillbox, patient takes meds out of pillbox Finances [] [] [x] Daughter and son manage finances Objective: BP 138/58 (BP Location: Left arm, Patient Position: Sitting) Pulse 74 Temp 36.6 C (97.9 F) (Oral) Resp 14 SpO2 98% No intake or output data in the 24 hours ending 02/04/23 1202 Wt Readings from Last 3 Encounters: 08/28/22 166 lb 12.8 oz (75.7 kg) 02/24/22 165 lb 14.4 oz (75.3 kg) 01/21/22 163 lb 9.6 oz (74.2 kg) Physical Exam Constitutional: General: She is not in acute distress. HENT: Nose: No congestion or rhinorrhea. Eyes: Extraocular Movements: Extraocular movements intact. Cardiovascular: Rate and Rhythm: Normal rate and regular rhythm. Heart sounds: Murmur heard. Pulmonary: Effort: No respiratory distress. Breath sounds: No wheezing, rhonchi or rales. Abdominal: General: Bowel sounds are normal. Palpations: Abdomen is soft. Tenderness: There is no abdominal tenderness. There is no right CVA tenderness or left CVA tenderness. Musculoskeletal: General: No tenderness. Neurological: Mental Status: She is alert. She is disoriented. Cranial Nerves: No cranial nerve deficit. Sensory: No sensory deficit. Motor: No weakness. Psychiatric: Mood and Affect: Mood normal. Cognition and Memory: Memory is impaired. Mini-Mental Status Exam: Domains Points Correct Oriented to: Season STATE, COUNTY, TOWN, and FLOOR 5 Registration (immediate recall) Apple, Table, Elisha # of Trials: 1 3 Serial 7s Use if 8th grade education or better 93, 86, 79, 72, 65 0 WORLD Backwards Use if <8th grade education D L R O W Not used Delayed 3 item recall Apple, Table, Elisha 0 Repetition Repeat after me: NO IFS, ANDS, OR BUTS 1 3 Step Command Take paper in right hand, fold it in half, & set on floor 2 Naming Watch Pen 2 Reading Read & Obey Present: "Close your eyes" 1 Write a sentence 0 Copy Design (overlapping pentagons) 0 MMSE Score: Clock Drawing Test: Correct Elements (1 pt each): Numbers are drawn inside the clock [place] Total Score 1/7 Time Instructions: Ten past eleven Scores < 5 out of 7 correlate with significantly more driving errors J Gen Wellness Instructor Med 2005; 20:240-244 Labs and Imaging: Recent Results (from the past 24 hour(s)) CBC auto differential Collection Time: 02/04/23 2:16 AM Result Value Ref Range Auto WBC 9.1 3.6 - 10.7 10*3/uL RBC 3.99 3.8 - 5.20 10*6/uL Hemoglobin 12.2 11.7 - 16.0 g/dL Hematocrit 37.0 35.0 - 47.0 % MCV 92.8 80.0 - 98.0 fL MCH 30.5 26.0 - 34.0 pg MCHC 32.9 32.0 - 36.0 % RDW 13.5 11.5 - 14.5 % Platelets 236 140 - 440 10*3/uL MPV 7.7 7.4 - 12.4 fL nRBC 0.0 0.0 - 2.0 /100 WBCs Neutrophils Relative 56.4 40.0 - 80.0 % Lymphocytes Relative 32.0 20.0 - 40.0 % Monocytes Relative 8.3 2.0 - 10.0 % Eosinophils Relative 2.3 1.0 - 6.0 % Basophils Relative 1.0 0.0 - 2.0 % Neutrophils Absolute 5.1 1.8 - 7.0 10*3/uL Lymphocytes Absolute 2.9 1.0 - 4.3 10*3/uL Monocytes Absolute 0.8 0.0 - 0.8 10*3/uL Eosinophils Absolute 0.2 0.0 - 0.5 10*3/uL Basophils Absolute 0.1 0.0 - 0.2 10*3/uL Basic metabolic panel Collection Time: 02/04/23 2:16 AM Result Value Ref Range SODIUM 138 135 - 145 mmol/L POTASSIUM 4.0 3.5 - 5.1 mmol/L CHLORIDE 109 (H) 98 - 107 mmol/L CARBON DIOXIDE 25 22 - 30 mmol/L UREA NITROGEN 23 (H) 7 - 17 mg/dL CREATININE 0.81 0.52 - 1.04 mg/dL GLUCOSE 110 (H) 70 - 100 mg/dL CALCIUM 9.3 8.4 - 10.4 mg/dL ANION GAP 4 3 - 13 mmol/L eGFR 73.0 >60.0 mL/min/1.73m*2 Complete Urinalysis Collection Time: 02/04/23 3:30 AM Result Value Ref Range Color, Urine Dark Yellow (A) Lt. Yellow Clarity, Urine Turbid (A) Clear pH, Urine 5.5 5.0 - 8.0 pH Leukocytes, Urine 500 (A) Negative Soni/uL Nitrite, Urine Negative Negative Protein, Urine Negative Negative mg/dL Glucose, Urine Normal Normal (<70) mg/dL Bilirubin, Urine Negative Negative mg/dL Ketones, Urine Negative Negative mg/dL Urobilinogen, Urine Normal Normal (0-1) mg/dL Blood, Urine Negative Negative mg/dL RBC, Urine 3-5 (A) 0 - 2 /HPF WBC, Urine 26-50 (A) 0 - 5 /HPF Squamous Epithelial, Urine 11-25 (A) 3 - 5 /HPF Bacteria, Urine Few (A) Negative /HPF Mucus, Urine Few Negative /LPF Hyaline Casts, Urine 6-10 (A) Negative /LPF SPECIFIC GRAVITY OF URINE (NUMERIC) 1.020 1.005 - 1.030 No results found for: "TSH" No components found for: "B12" No results found for: "VITD25" Reviewed: active problem list, medication list, family history, social history, notes from last encounter, lab results, imaging Follow-up: will follow with you Associated attestation - Regina uY MD - 02/04/2023 2:55 PM EDT Attending Supervising Physician s Attestation Statement I saw and evaluated the patient. I discussed the findings and plans with Geriatric fellow and agree as documented in his note. Changes and updates in blue. Albina Brown is an 82 year old female with PMH of anxiety, hld, breast cancer (on Tamoxifen, follows with Dr Carlson), acid reflux who presented to hospital after being found wandering outside. This occurred twice recently. She is noted to be very forgetful - family reports long-standing memory issues. Family reports she had been living alone and family would come over to her house to help with taking her medications. Patient's recently in early January. She does not remember that he Reviewed H and P and ER notes CBC: wnl BMP: BUN 23 Tsh within normal limits Vitamin b12 within normal limits Patient pleasantly forgetful. Does not remember why she is in the hospital. Poor insight overall. A/P Dementia -likely Alzheimer's Disease -needs 10/11 supervision going forward - discussed this with son -will consult social work -tsh and vitamin b12 within normal limits -continue namenda Anxiety -she is on celexa 40 mg daily. The maximum recommended dose of celexa is geriatric population is 20 mg daily due to risk of qtc prolongation. Lower to 30 mg daily x 14 days then 20 mg daily thereafter At risk for delirium -recommend delirium protocol documented in this encounter [facility] 02-04-2023 Note Formatting of this n ote might be different from the original. S/W, bedded ED patient Patient in early AM after leaving her home and wandering, found sitting on the side of the road. Patient with Dementia, found here to have a UTI. Family noted possible placement. I did visit patient and Son in ED room to discuss planning. Son indicated his is looking into getting more help in the home. The patient does have Direction Home Waiver, Husseinager is Precious Grace ) I did speak with [facility] line to inform of patient admit and inquire on services. The patient currently does not have any aide services but is in process of getting an independent provider assigned. This may take several weeks. The patient did have 11 hrs a week of aide services through [place] however patient aide quit and they have noone to replace. The patient does go to the [facility] once a week, gets 3 meals a week and has [employer]. I did ask that assigned Lorenzo Lang please call to discuss increase in services if able. Son indicated to reach out to his Renetta for planning. [facility] 02-04-2023 Note Formatting of this n ote might be different from the original. S/W, bedded ED patient Patient in early AM after leaving her home and wandering, found sitting on the side of the road. Patient with Dementia, found here to have a UTI. Family noted possible placement. I did visit patient and Son in ED room to discuss planning. Son indicated his is looking into getting more help in the home. The patient does have [employer] Home Waiver, Cas[place]ager is Precious Grace ) I did speak with Coverage line to inform of patient admit and inquire on services. The patient currently does not have any aide services but is in process of getting an independent provider assigned. This may take several weeks. The patient did have 11 hrs a week of aide services through [employer] however patient aide quit and they have noone to replace. The patient does go to the [place] once a week, gets 3 meals a week and has [employer]. I did ask that assigned Lorenzo Lang please call to discuss increase in services if able. Son indicated to reach out to his Renetta for planning. [facility] 02-04-2023 History and physical note Images from the original note were not included. History and Physical [facility] Albina Spencer [place] : 1940 AGE 82 y.o. YEARS Note Date 02/04/2023 Primary Care Physician:MADYSON COLLINS DO Current Providers as of 02/04/2023 PCP: Madyson Collins DO Care Team Provider: Brian Carlson MD Referring Provider: not found, starting on ThuFeb 04, 2023 12:00 AM Admitting Provider: Philippe Farmer MD, (Active) Attending Provider: Ana Seymour MD, starting on ThuFeb 04, 2023 1:38 AM (Active) Attending Provider: Philippe Farmer MD, starting on ThuFeb 04, 2023 5:49 AM (Active) Registered Nurse: Yessy Yeh RN, starting on ThuFeb 04, 2023 2:14 AM, ending on ThuFeb 04, 2023 7:20 AM (Active) Chief Complaint: Dementia HPI: She was brought in by family do to walking outside her house tonight and wandering around Family reports she did this 3 days ago as well She is aware she is having some memory problems She lives in a mobile home When speaking with her she speaks clearly. She does not appear to be in any distress However she does not know the year she is not aware she is for sure. She does not recall what happened to her earlier she is reminded of what happened she soon forgets. Son was present in the room to provide collateral history that she has been living at home alone but they have been supporting her by coming over as much as they can helping her take her medications. She has longstanding difficulty with memories and recently has been acting out by making odd decisions such as right before she came in walking around her outside when it was dark and 1 AM Review of Systems: She denies all symptoms aside memory problems General: Skin: HEENT: Cardiovascular Fever n Rashes n Difficulty chewing n Chest Pain n Chills n Sores n Appetite Loss n Chest Pressure n Fatigue n Epistaxis n Orthopnea n Sweats n Hearing loss n Palpitations n GI: Tinnitus n GERD n Vision quality RESP: Abdominal Pain n : SOB/AKERS n Nausea n Hematuria n Cough n Vomiting n Dysuria n Productive/Sputum n Hematemesis n NEURO: Urgency n Hemoptysis n Diarrhea n Headaches n Frequency n Wheezing n Constipation n Seizures n Times at night urinating n Heamatochezia n Neuropathy n catheter present n MSK: Melena n Focal weakness n Hesitancy n Focal Numbness Incontinence n Acute joint pain n Dizzy/Vertigo Redness n Difficulty speaking Heme/Lymph Swelling n Difficulty walking Lymphadenopathy Myalgia n Ataxia Chronic joint pain n Past Medical History: Diagnosis Date Acid reflux Anxiety Breast cancer (HCC) Hyperlipidemia She denies any history of strokes heart attacks or blood clots Past Surgical History: Procedure Laterality Date BREAST BIOPSY BREAST LUMPECTOMY 11/21/2019 CATARACT EXTRACTION COLONOSCOPY TUBAL LIGATION WISDOM TOOTH EXTRACTION No Known Allergies Medications Prior to Admission: Current Outpatient Medications Medication Instructions ascorbic acid (VITAMIN C) 500 mg, Oral, Daily aspirin 81 mg, Oral, Daily cholecalciferol (Vitamin D-3) 25 MCG (1000 UT) capsule 1 capsule, Oral, Daily citalopram (CeleXA) 20 MG tablet No dose, route, or frequency recorded. meclizine (Antivert) 25 MG tablet 1 tablet, Oral, 3 times daily PRN Misc Natural Products (HERBAL ENERGY COMPLEX PO) Oral, Daily, Lions Noé- herbal Multiple Vitamin (MULTIVITAMIN ADULT PO) 1 tablet, Oral, Daily omeprazole (PriLOSEC) [address] capsule No dose, route, or frequency recorded. tamoxifen (NOLVADEX) 20 mg, Oral, Daily Memantine 21 Tolterodin2 er 20 mg Citolapram 40 Social History Social History Tobacco Use Smoking status: Never Smokeless tobacco: Never Substance Use Topics Alcohol use: Not on file Family History No family history on file. Physical Exam Temp (24hrs), Av.6 C (97.9 F), Min:36.6 C (97.9 F), Max:36.6 C (97.9 F) BP (!) 155/91 (BP Location: Right arm, Patient Position: Lying) Pulse 87 Temp 36.6 C (97.9 F) (Oral) Resp 16 SpO2 98% Pulse Ox: SpO2 Av % Min: 98 % Max: 98 % Supplemental O2: General appearance: she misses the year, does not know the month, or day She knows she is in the hospital She forgets almost all information after we talk about it and every question her a few minutes later HEENT: Normal cephalic, atraumatic without obvious deformity. Pupils equal, round, and reactive to light. Extra ocular muscles intact. Conjunctivae/corneas clear. Neck: Supple, with full range of motion. No jugular venous distention. Trachea midline. No lymphadenopathy. Respiratory: Normal respiratory effort. Clear to auscultation, bilaterally without Rales/Wheezes/Rhonchi. Cardiovascular: Regular rate and rhythm with normal S1/S2 without murmurs, rubs or gallops. Abdomen: Soft, non-tender, non-distended with normal bowel sounds. No rebound or guarding. Musculoskeletal: No clubbing, cyanosis or edema bilaterally. Full range of motion without deformity. Skin: Skin color, texture, turgor normal. No rashes or lesions. Neurologic: Neurovascularly intact without any focal sensory/motor deficits. Cranial nerves grossly intact. Labs Admission on 02/04/2023 Component Date Value Auto WBC 02/04/2023 9.1 RBC 02/04/2023 3.99 Hemoglobin 02/04/2023 12.2 Hematocrit 02/04/2023 37.0 MCV 02/04/2023 92.8 MCH 02/04/2023 30.5 MCHC 02/04/2023 32.9 RDW 02/04/2023 13.5 Platelets 02/04/2023 236 MPV 02/04/2023 7.7 nRBC 02/04/2023 0.0 Neutrophils Relative 02/04/2023 56.4 Lymphocytes Relative 02/04/2023 32.0 Monocytes Relative 02/04/2023 8.3 Eosinophils Relative 02/04/2023 2.3 Basophils Relative 02/04/2023 1.0 Neutrophils Absolute 02/04/2023 5.1 Lymphocytes Absolute 02/04/2023 2.9 Monocytes Absolute 02/04/2023 0.8 Eosinophils Absolute 02/04/2023 0.2 Basophils Absolute 02/04/2023 0.1 SODIUM 02/04/2023 138 POTASSIUM 02/04/2023 4.0 CHLORIDE 02/04/2023 109 (H) CARBON DIOXIDE 02/04/2023 25 UREA NITROGEN 02/04/2023 23 (H) CREATININE 02/04/2023 0.81 GLUCOSE 02/04/2023 110 (H) CALCIUM 02/04/2023 9.3 ANION GAP 02/04/2023 4 eGFR 02/04/2023 73.0 Color, Urine 02/04/2023 Dark Yellow (A) Clarity, Urine 02/04/2023 Turbid (A) pH, Urine 02/04/2023 5.5 Leukocytes, Urine 02/04/2023 500 (A) Nitrite, Urine 02/04/2023 Negative Protein, Urine 02/04/2023 Negative Glucose, Urine 02/04/2023 Normal Bilirubin, Urine 02/04/2023 Negative Ketones, Urine 02/04/2023 Negative Urobilinogen, Urine 02/04/2023 Normal Blood, Urine 02/04/2023 Negative RBC, Urine 02/04/2023 3-5 (A) WBC, Urine 02/04/2023 26-50 (A) Squamous Epithelial, Uri* 02/04/2023 11-25 (A) Bacteria, Urine 02/04/2023 Few (A) Mucus, Urine 02/04/2023 Few Hyaline Casts, Urine 02/04/2023 6-10 (A) SPECIFIC GRAVITY OF URIN* 02/04/2023 1.020 EKG No results found for this or any previous visit (from the past 4464 hour(s)). Patient recently received an antibiotic (last 12 hours) Date/Time Action Medication Dose Rate 02/04/23 0437 New Bag cefTRIAXone (Rocephin) 1,000 mg in sodium chloride 0.9 % 50 mL IVPB Mini-Bag Plus 1,000 mg 100 mL/hr Pending Labs Order Current Status Urine culture In process Assessment/Plan and Medical Decision Making 82-year-old brought in by family for safety reasons Patient denies almost all complaints but she does admit to taking a walk this morning about 1 AM outside in the dark family reports she did this 3 days ago Her mental function has been declining recently. Especially her memory She clearly cannot tell me where she is at she does not know the year to date When I tell her where she is at or what the plan as she forgets that within about 20 seconds and did this about 4 times for me interviewing her. She is seeing an outside physician who is treating her with dementia. To my understanding this is not a sudden recent change but a gradual pattern changer and repairer time Family is concerned because they do not want to leave her home and they cannot watch over her 24 hours a day at home currently we will bring her and we will get her to see geriatrics may do some reversible dementia work-up and family is requesting placement options In reviewing her medications she is on a bottle of Detrol LA that I will stop but does not appear to be on other sedating medications In the emergency room a urinalysis was done there is some bacteria however her urinalysis is contaminated with squames. She does not have a white count or fever. We will treat her UA and see how she improves however I do not expect overall improve her symptoms. History of breast cancer Has had surgery in the past she is currently on tamoxifen She does follow with hematology oncology She had a right-sided breast mass that was biopsied in the past I do not believe this was further worked up per family or patient's wishes We will restart diet -DVT prophylaxis: [x] Lovenox [] Heparin [] SCDs [x] Encourage ambulation [] Already on Anticoagulation [] Pharmocologic prophylaxis on hold to due risk bleed/procedure 02/04/2023 Albina Brown [id number] Any scheduled follow up appointments Future Appointments Date Time Provider Department Center 09/03/2023 2:45 PM Brian Carlson MD [facility] None Extended Emergency Contact Information Primary Emergency Contact: Renetta Rosenthal Relation: Child Secondary Emergency Contact: eTd Domínguez Relation: Child Portions of this note may be electronically transcribed. Please forward a copy of this H&P to the primary care physician. [employer] Phone: 02-04-2023 Note History and Physical [facility] Albina Brown : 1940 AGE 82 y.o. YEARS Note Date 02/04/2023 Primary Care Physician:MADYSON COLLINS DO Current Providers as of 02/04/2023 PCP: Madyson Collins DO Care Team Provider: Brian Carlson MD Referring Provider: not found, starting on ThuFeb 04, 2023 12:00 AM Admitting Provider: Philippe Farmer MD, (Active) Attending Provider: Ana Seymour MD, starting on ThuFeb 04, 2023 1:38 AM (Active) Attending Provider: Philippe Farmer MD, starting on ThuFeb 04, 2023 5:49 AM (Active) Registered Nurse: Yessy Yeh RN, starting on ThuFeb 04, 2023 2:14 AM, ending on ThuFeb 04, 2023 7:20 AM (Active) Chief Complaint: Dementia HPI: She was brought in by family do to walking outside her house tonight and wandering around Family reports she did this 3 days ago as well She is aware she is having some memory problems She lives in a mobile home When speaking with her she speaks clearly. She does not appear to be in any distress However she does not know the year she is not aware she is for sure. She does not recall what happened to her earlier she is reminded of what happened she soon forgets. Son was present in the room to provide collateral history that she has been living at home alone but they have been supporting her by coming over as much as they can helping her take her medications. She has longstanding difficulty with memories and recently has been acting out by making odd decisions such as right before she came in walking around her outside when it was dark and 1 AM Review of Systems: She denies all symptoms aside memory problems General: Skin: HEENT: Cardiovascular Fever n Rashes n Difficulty chewing n Chest Pain n Chills n Sores n Appetite Loss n Chest Pressure n Fatigue n Epistaxis n Orthopnea n Sweats n Hearing loss n Palpitations n GI: Tinnitus n GERD n Vision quality RESP: Abdominal Pain n : SOB/AKERS n Nausea n Hematuria n Cough n Vomiting n Dysuria n Productive/Sputum n Hematemesis n NEURO: Urgency n Hemoptysis n Diarrhea n Headaches n Frequency n Wheezing n Constipation n Seizures n Times at night urinating n Heamatochezia n Neuropathy n catheter present n MSK: Melena n Focal weakness n Hesitancy n Focal Numbness Incontinence n Acute joint pain n Dizzy/Vertigo Redness n Difficulty speaking Heme/Lymph Swelling n Difficulty walking Lymphadenopathy Myalgia n Ataxia Chronic joint pain n Past Medical History: Diagnosis Date Acid reflux Anxiety Breast cancer (HCC) Hyperlipidemia She denies any history of strokes heart attacks or blood clots Past Surgical History: Procedure Laterality Date BREAST BIOPSY BREAST LUMPECTOMY 11/21/2019 CATARACT EXTRACTION COLONOSCOPY TUBAL LIGATION WISDOM TOOTH EXTRACTION No Known Allergies Medications Prior to Admission: Current Outpatient Medications Medication Instructions ascorbic acid (VITAMIN C) 500 mg, Oral, Daily aspirin 81 mg, Oral, Daily cholecalciferol (Vitamin D-3) 25 MCG (1000 UT) capsule 1 capsule, Oral, Daily citalopram (CeleXA) 20 MG tablet No dose, route, or frequency recorded. meclizine (Antivert) 25 MG tablet 1 tablet, Oral, 3 times daily PRN Misc Natural Products (HERBAL ENERGY COMPLEX PO) Oral, Daily, Lions Noé- herbal Multiple Vitamin (MULTIVITAMIN ADULT PO) 1 tablet, Oral, Daily omeprazole (PriLOSEC) [address] capsule No dose, route, or frequency recorded. tamoxifen (NOLVADEX) 20 mg, Oral, Daily Memantine 21 Tolterodin2 er 20 mg Citolapram 40 Social History Social History Tobacco Use Smoking status: Never Smokeless tobacco: Never Substance Use Topics Alcohol use: Not on file Family History No family history on file. Physical Exam Temp (24hrs), Av.6 ?C (97.9 ?F), Min:36.6 ?C (97.9 ?F), Max:36.6 ?C (97.9 ?F) BP (!) 155/91 (BP Location: Right arm, Patient Position: Lying) Pulse 87 Temp 36.6 ?C (97.9 ?F) (Oral) Resp 16 SpO2 98% Pulse Ox: SpO2 Av % Min: 98 % Max: 98 % Supplemental O2: General appearance: she misses the year, does not know the month, or day She knows she is in the hospital She forgets almost all information after we talk about it and every question her a few minutes later HEENT: Normal cephalic, atraumatic without obvious deformity. Pupils equal, round, and reactive to light. Extra ocular muscles intact. Conjunctivae/corneas clear. Neck: Supple, with full range of motion. No jugular venous distention. Trachea midline. No lymphadenopathy. Respiratory: Normal respiratory effort. Clear to auscultation, bilaterally without Rales/Wheezes/Rhonchi. Cardiovascular: Regular rate and rhythm with normal S1/S2 without murmurs, rubs or gallops. Abdomen: Soft, non-tender, non-distended with normal bowel sounds. No rebound or guarding. Musculoskeletal: No clubbing, cyanosis or edema bilatera (more content not included)... [facility] 02-04-2023 History and physical note Images from the original note were not included. History and Physical [facility] Albina Brown : 1940 AGE 82 y.o. YEARS Note Date 02/04/2023 Primary Care Physician:MADYSON COLLINS DO Current Providers as of 02/04/2023 PCP: Madyson Collins DO Care Team Provider: Brian Carlson MD Referring Provider: not found, starting on ThuFeb 04, 2023 12:00 AM Admitting Provider: Philippe Farmer MD, (Active) Attending Provider: Ana Seymour MD, starting on ThuFeb 04, 2023 1:38 AM (Active) Attending Provider: Philippe Farmer MD, starting on ThuFeb 04, 2023 5:49 AM (Active) Registered Nurse: Yessy Yeh RN, starting on ThuFeb 04, 2023 2:14 AM, ending on ThuFeb 04, 2023 7:20 AM (Active) Chief Complaint: Dementia HPI: She was brought in by family do to walking outside her house tonight and wandering around Family reports she did this 3 days ago as well She is aware she is having some memory problems She lives in a mobile home When speaking with her she speaks clearly. She does not appear to be in any distress However she does not know the year she is not aware she is for sure. She does not recall what happened to her earlier she is reminded of what happened she soon forgets. Son was present in the room to provide collateral history that she has been living at home alone but they have been supporting her by coming over as much as they can helping her take her medications. She has longstanding difficulty with memories and recently has been acting out by making odd decisions such as right before she came in walking around her outside when it was dark and 1 AM Review of Systems: She denies all symptoms aside memory problems General: Skin: HEENT: Cardiovascular Fever n Rashes n Difficulty chewing n Chest Pain n Chills n Sores n Appetite Loss n Chest Pressure n Fatigue n Epistaxis n Orthopnea n Sweats n Hearing loss n Palpitations n GI: Tinnitus n GERD n Vision quality RESP: Abdominal Pain n : SOB/AKERS n Nausea n Hematuria n Cough n Vomiting n Dysuria n Productive/Sputum n Hematemesis n NEURO: Urgency n Hemoptysis n Diarrhea n Headaches n Frequency n Wheezing n Constipation n Seizures n Times at night urinating n Heamatochezia n Neuropathy n catheter present n MSK: Melena n Focal weakness n Hesitancy n Focal Numbness Incontinence n Acute joint pain n Dizzy/Vertigo Redness n Difficulty speaking Heme/Lymph Swelling n Difficulty walking Lymphadenopathy Myalgia n Ataxia Chronic joint pain n Past Medical History: Diagnosis Date Acid reflux Anxiety Breast cancer (HCC) Hyperlipidemia She denies any history of strokes heart attacks or blood clots Past Surgical History: Procedure Laterality Date BREAST BIOPSY BREAST LUMPECTOMY 11/21/2019 CATARACT EXTRACTION COLONOSCOPY TUBAL LIGATION WISDOM TOOTH EXTRACTION No Known Allergies Medications Prior to Admission: Current Outpatient Medications Medication Instructions ascorbic acid (VITAMIN C) 500 mg, Oral, Daily aspirin 81 mg, Oral, Daily cholecalciferol (Vitamin D-3) 25 MCG (1000 UT) capsule 1 capsule, Oral, Daily citalopram (CeleXA) 20 MG tablet No dose, route, or frequency recorded. meclizine (Antivert) 25 MG tablet 1 tablet, Oral, 3 times daily PRN Misc Natural Products (HERBAL ENERGY COMPLEX PO) Oral, Daily, Lions Noé- herbal Multiple Vitamin (MULTIVITAMIN ADULT PO) 1 tablet, Oral, Daily omeprazole (PriLOSEC) [address] capsule No dose, route, or frequency recorded. tamoxifen (NOLVADEX) 20 mg, Oral, Daily Memantine 21 Tolterodin2 er 20 mg Citolapram 40 Social History Social History Tobacco Use Smoking status: Never Smokeless tobacco: Never Substance Use Topics Alcohol use: Not on file Family History No family history on file. Physical Exam Temp (24hrs), Av.6 C (97.9 F), Min:36.6 C (97.9 F), Max:36.6 C (97.9 F) BP (!) 155/91 (BP Location: Right arm, Patient Position: Lying) Pulse 87 Temp 36.6 C (97.9 F) (Oral) Resp 16 SpO2 98% Pulse Ox: SpO2 Av % Min: 98 % Max: 98 % Supplemental O2: General appearance: she misses the year, does not know the month, or day She knows she is in the hospital She forgets almost all information after we talk about it and every question her a few minutes later HEENT: Normal cephalic, atraumatic without obvious deformity. Pupils equal, round, and reactive to light. Extra ocular muscles intact. Conjunctivae/corneas clear. Neck: Supple, with full range of motion. No jugular venous distention. Trachea midline. No lymphadenopathy. Respiratory: Normal respiratory effort. Clear to auscultation, bilaterally without Rales/Wheezes/Rhonchi. Cardiovascular: Regular rate and rhythm with normal S1/S2 without murmurs, rubs or gallops. Abdomen: Soft, non-tender, non-distended with normal bowel sounds. No rebound or guarding. Musculoskeletal: No clubbing, cyanosis or edema bilaterally. Full range of motion without deformity. Skin: Skin color, texture, turgor normal. No rashes or lesions. Neurologic: Neurovascularly intact without any focal sensory/motor deficits. Cranial nerves grossly intact. Labs Admission on 02/04/2023 Component Date Value Auto WBC 02/04/2023 9.1 RBC 02/04/2023 3.99 Hemoglobin 02/04/2023 12.2 Hematocrit 02/04/2023 37.0 MCV 02/04/2023 92.8 MCH 02/04/2023 30.5 MCHC 02/04/2023 32.9 RDW 02/04/2023 13.5 Platelets 02/04/2023 236 MPV 02/04/2023 7.7 nRBC 02/04/2023 0.0 Neutrophils Relative 02/04/2023 56.4 Lymphocytes Relative 02/04/2023 32.0 Monocytes Relative 02/04/2023 8.3 Eosinophils Relative 02/04/2023 2.3 Basophils Relative 02/04/2023 1.0 Neutrophils Absolute 02/04/2023 5.1 Lymphocytes Absolute 02/04/2023 2.9 Monocytes Absolute 02/04/2023 0.8 Eosinophils Absolute 02/04/2023 0.2 Basophils Absolute 02/04/2023 0.1 SODIUM 02/04/2023 138 POTASSIUM 02/04/2023 4.0 CHLORIDE 02/04/2023 109 (H) CARBON DIOXIDE 02/04/2023 25 UREA NITROGEN 02/04/2023 23 (H) CREATININE 02/04/2023 0.81 GLUCOSE 02/04/2023 110 (H) CALCIUM 02/04/2023 9.3 ANION GAP 02/04/2023 4 eGFR 02/04/2023 73.0 Color, Urine 02/04/2023 Dark Yellow (A) Clarity, Urine 02/04/2023 Turbid (A) pH, Urine 02/04/2023 5.5 Leukocytes, Urine 02/04/2023 500 (A) Nitrite, Urine 02/04/2023 Negative Protein, Urine 02/04/2023 Negative Glucose, Urine 02/04/2023 Normal Bilirubin, Urine 02/04/2023 Negative Ketones, Urine 02/04/2023 Negative Urobilinogen, Urine 02/04/2023 Normal Blood, Urine 02/04/2023 Negative RBC, Urine 02/04/2023 3-5 (A) WBC, Urine 02/04/2023 26-50 (A) Squamous Epithelial, Uri* 02/04/2023 11-25 (A) Bacteria, Urine 02/04/2023 Few (A) Mucus, Urine 02/04/2023 Few Hyaline Casts, Urine 02/04/2023 6-10 (A) SPECIFIC GRAVITY OF URIN* 02/04/2023 1.020 EKG No results found for this or any previous visit (from the past 4464 hour(s)). Patient recently received an antibiotic (last 12 hours) Date/Time Action Medication Dose Rate 02/04/23 0437 New Bag cefTRIAXone (Rocephin) 1,000 mg in sodium chloride 0.9 % 50 mL IVPB Mini-Bag Plus 1,000 mg 100 mL/hr Pending Labs Order Current Status Urine culture In process Assessment/Plan and Medical Decision Making 82-year-old brought in by family for safety reasons Patient denies almost all complaints but she does admit to taking a walk this morning about 1 AM outside in the dark family reports she did this 3 days ago Her mental function has been declining recently. Especially her memory She clearly cannot tell me where she is at she does not know the year to date When I tell her where she is at or what the plan as she forgets that within about 20 seconds and did this about 4 times for me interviewing her. She is seeing an outside physician who is treating her with dementia. To my understanding this is not a sudden recent change but a gradual pattern changer and repairer time Family is concerned because they do not want to leave her home and they cannot watch over her 24 hours a day at home currently we will bring her and we will get her to see geriatrics may do some reversible dementia work-up and family is requesting placement options In reviewing her medications she is on a bottle of Detrol LA that I will stop but does not appear to be on other sedating medications In the emergency room a urinalysis was done there is some bacteria however her urinalysis is contaminated with squames. She does not have a white count or fever. We will treat her UA and see how she improves however I do not expect overall improve her symptoms. History of breast cancer Has had surgery in the past she is currently on tamoxifen She does follow with hematology oncology She had a right-sided breast mass that was biopsied in the past I do not believe this was further worked up per family or patient's wishes We will restart diet -DVT prophylaxis: [x] Lovenox [] Heparin [] SCDs [x] Encourage ambulation [] Already on Anticoagulation [] Pharmocologic prophylaxis on hold to due risk bleed/procedure 02/04/2023 Albina Brown [id number] Any scheduled follow up appointments Future Appointments Date Time Provider Department Center 09/03/2023 2:45 PM Brian Carlson MD [facility] None Extended Emergency Contact Information Primary Emergency Contact: Renetta Rosenthal Relation: Child Secondary Emergency Contact: SangTed Relation: Child Portions of this note may be electronically transcribed. Please forward a copy of this H&P to the primary care physician. documented in this encounter [facility] 02-04-2023 Emergency department Note Pt ambulated to bathroom well. Unable to urinate for UA at this time. Yessy Yeh RN 02/04/238 [facility] 02-04-2023 Emergency department Note Pt ambulated to bathroom well. Unable to urinate for UA at this time. Yessy Yeh RN 02/04/23 0218 [facility] ED EMERGENCY DEPARTMENT ENCOUNTER Pt Name: Albina Brown Birthdate 1940 Date of evaluation: 02/04/2023 Provider: Ana Seymour MD CHIEF COMPLAINT Chief Complaint Patient presents with Dementia HISTORY OF PRESENT ILLNESS (Location/Symptom, Timing/Onset, Context/Setting, Quality, Duration, Modifying Factors, Severity) Note limiting factors. I wore a surgical mask for the entirety of this encounter. Albina Brown is a 82 y.o. female with a past medical history of dementia, breast cancer, hyperlipidemia, anxiety presenting after being found wandering outside on the street. Her daughter saw her wandering on the ring camera and called police and she was ultimately located. Patient self says that she just "wanted to go for a walk. "She also believes that her is still alive unfortunately he on the fourth of this month but she does not remember. She complains of no chest pain, nausea, vomiting, shortness of breath or abdominal pain currently though I question the reliability of her history. Her daughter arrives and states patient lives alone. The ring camera woke her up and she saw her leaving and was able to get there by the time patient had wandered completely down the street and around the corner. She lives about 10 minutes away from her law. She states that this is the second time that she has gotten out like this but they did not take her to the hospital this time. She was reportedly found laying on her side, but patient states she does not remember falling really and is in no pain. She was lying propped up on her left side but did not appear to have struck her head and was not otherwise acting abnormally. We had shared discussion regarding the safety of patient living alone in the future. She states that been working very hard to get her aunt (patient's sister) to come stay with her and live with her with also 11 hours of an Medicare approved home health aide per week but this has not been arranged yet. Her who is the patient's biological son will be here soon and they would like to wait for the results of the urine before making a decision, but I highly recommend admission for evaluation for consideration of placement in this case. Past Medical history reviewed. REVIEW OF SYSTEMS Negative except for above HPI Review of Systems PAST MEDICAL HISTORY Past Medical History: Diagnosis Date Acid reflux Anxiety Breast cancer (HCC) Hyperlipidemia SURGICAL HISTORY Past Surgical History: Procedure Laterality Date BREAST BIOPSY BREAST LUMPECTOMY 11/21/2019 CATARACT EXTRACTION COLONOSCOPY TUBAL LIGATION WISDOM TOOTH EXTRACTION CURRENT MEDICATIONS Previous Medications ASCORBIC ACID (VITAMIN C) 500 MG CHEWABLE TABLET Chew 500 mg in the morning. ASPIRIN 81 MG CHEWABLE TABLET Chew 81 mg in the morning. CHOLECALCIFEROL (VITAMIN D-3) 25 MCG (1000 UT) CAPSULE Take 1 capsule by mouth in the morning. CITALOPRAM (CELEXA) 20 MG TABLET DONEPEZIL (ARICEPT) 5 MG TABLET Take 10 mg by mouth before bedtime. MECLIZINE (ANTIVERT) 25 MG TABLET Take 1 tablet by mouth 3 times daily as needed. MISC NATURAL PRODUCTS (HERBAL ENERGY COMPLEX PO) Take by mouth daily. Lions Noé- herbal MULTIPLE VITAMIN (MULTIVITAMIN ADULT PO) Take 1 tablet by mouth in the morning. OMEPRAZOLE (PRILOSEC) [address] CAPSULE TAMOXIFEN (NOLVADEX) 20 MG TABLET Take 1 tablet (20 mg total) by mouth daily. ALLERGIES Patient has no known allergies. FAMILY HISTORY No family history on file. SOCIAL HISTORY Social History Socioeconomic History Marital status: Tobacco Use Smoking status: Never Smokeless tobacco: Never SCREENINGS PHYSICAL EXAM (up to 7 for level 4, 8 or more for level 5) @EDTRIAGEVSS@ Physical Exam Vitals and nursing note reviewed. Constitutional: General: She is not in acute distress. Appearance: Normal appearance. HENT: Head: Normocephalic and atraumatic. Nose: Nose normal. Eyes: Conjunctiva/sclera: Conjunctivae normal. Cardiovascular: Rate and Rhythm: Normal rate. Pulmonary: Effort: Pulmonary effort is normal. No respiratory distress. Abdominal: General: Abdomen is flat. There is no distension. Skin: General: Skin is warm and dry. Capillary Refill: Capillary refill takes less than 2 seconds. Neurological: Mental Status: She is alert. Comments: Facial movements symmetric, no facial droop, PERRLA, IOMI, moves all extremities equally and symmetrically, speech is fluent and clear, ambulates without difficulty. Psychiatric: Behavior: Behavior normal. EMERGENCY DEPARTMENT COURSE and DIFFERENTIAL DIAGNOSIS/MDM: Vitals: Vitals: 02/04/23 0142 BP: (!) 155/91 BP Location: Right arm Patient Position: Lying Pulse: 87 Resp: 16 Temp: 36.6 C (97.9 F) TempSrc: Oral SpO2: 98% Medications sodium chloride 0.9 % bolus 500 mL (0 mL IntraVENous Stopped 02/04/23 1385) cefTRIAXone (Rocephin) 1,000 mg in sodium chloride 0.9 % 50 mL IVPB Mini-Bag Plus (0 mg IntraVENous Stopped 02/04/23 1548) Medical Decision Making ADDITIONAL MEDICAL DESICION MAKING IS DOCUMENTED IN THE ED COURSE. PLEASE REFER TO ED COURSE. Albina Brown is a 82 y.o. female with a past medical history of dementia, breast cancer, hyperlipidemia, anxiety presenting after being found wandering outside on the street. Her daughter saw her wandering on the ring camera and called police and she was ultimately located. Patient self says that she just "wanted to go for a walk. "She also believes that her is still alive unfortunately he on the fourth of this month but she does not remember. She complains of no chest pain, nausea, vomiting, shortness of breath or abdominal pain currently though I question the reliability of her history. Her daughter arrives and states patient lives alone. The ring camera woke her up and she saw her leaving and was able to get there by the time patient had wandered completely down the street and around the corner. She lives about 10 minutes away from her law. She states that this is the second time that she has gotten out like this but they did not take her to the hospital this time. She was reportedly found laying on her side, but patient states she does not remember falling really and is in no pain. She was lying propped up on her left side but did not appear to have struck her head and was not otherwise acting abnormally. We had shared discussion regarding the safety of patient living alone in the future. She states that been working very hard to get her aunt (patient's sister) to come stay with her and live with her with also 11 hours of an Medicare approved home health aide per week but this has not been arranged yet. Her who is the patient's biological son will be here soon and they would like to wait for the results of the urine before making a decision, but I highly recommend admission for evaluation for consideration of placement in this case. On physical exam: Very pleasant, nonfocal neurologic exam, nontoxic-appearing woman seen calmly in bed. Differential diagnoses considered include: Urinary tract infection, advancing dementia, unsafe so low living arrangement at home Plan: CBC BMP, urinalysis anticipate admission Problems Addressed: Advancing dementia (HCC): complicated acute illness or injury Amount and/or Complexity of Data Reviewed Independent Historian: Details: adult daughter in law Labs: ordered. Risk Decision regarding hospitalization. All independent interpretations of EKGs are documented in [facility]. ED Course as of 02/04/23553Feb 04, 2023 0553 Mentally, patient found to have UTI. They are unable to provide between the 2 of them a safe [id number] observation at home for her during treatment of this illness and will they are unsure if they want her placed or not yet, they think they want to explore inpatient options for this including and up to a full memory care unit versus additional outpatient resources to help her. I think this is a safer short-term plan given multiple episodes of patient getting out of her home and being found in unsafe situations. Patient has been accepted to internal medicine under Dr. Farmer. [BJ] ED Course User Index [BJ] Ana Seymour MD Diagnoses as of 02/04/23553 Advancing dementia (HCC) CONSULTS: None PROCEDURES: Unless otherwise noted below, none Procedures FINAL IMPRESSION 1. Advancing dementia (HCC) DISPOSITION/PLAN DISPOSITION Admit 02/04/2023 05:49:52 AM PATIENT REFERRED TO: No follow-up provider specified. DISCHARGE MEDICATIONS: New Prescriptions No medications on file @[facility] [facility]([id number]:LAST:1) @ (Please note: Portions of this note were completed with a voice recognition program. Efforts were made to edit the dictations but occasionally words and phrases are mis-transcribed.) Form [id number] Ana Seymour MD (electronically signed) Emergency Medicine Provider ] Ana Seymour MD 02/04/23553 Pt was brought in by EMS after being found on the side of the road by family. Pt has a hx of dementia and is normally A&O x2. Per family, this is the second time pt has wandered out of her home this week. Pt states that she was "just going for a stroll" and "doesn't know why she is here." Pt is A&O x3 upon assessment. Able to identify where she is, her name, and the year. Per the patient, she is experiencing no pain at all, pt is able to urinate okay. Last urinated around 7:30pm 02/03/2023. Pt states her last bm was 02/02/2023. Pt denies hitting her head and any LOC. Per pt, she lives at home with her . Per the daughter (at bedside) her has recently 01/21. Pt tends to forget her has passed, according to daughter. Bed: 13 Expected date: Expected time: Means of arrival: Comments: Jeff Montero RN 02/04/23 0138 documented in this encounter [facility] 02-04-2023 Emergency department Note Bed: 13 Expected date: Expected time: Means of arrival: Comments: Jeff Montero RN 02/04/23 0138 [facility] 02-04-2023 Emergency department Triage note Pt was brought in by EMS after being found on the side of the road by family. Pt has a hx of dementia and is normally A&O x2. Per family, this is the second time pt has wandered out of her home this week. Pt states that she was "just going for a stroll" and "doesn't know why she is here." Pt is A&O x3 upon assessment. Able to identify where she is, her name, and the year. Per the patient, she is experiencing no pain at all, pt is able to urinate okay. Last urinated around 7:30pm 02/03/2023. Pt states her last bm was 02/02/2023. Pt denies hitting her head and any LOC. Per pt, she lives at home with her . Per the daughter (at bedside) her has recently 01/21. Pt tends to forget her has passed, according to daughter. [facility] 02-04-2023 Physician Emergency department Note [facility] ED EMERGENCY DEPARTMENT ENCOUNTER Pt Name: Albina Brown Birthdate 1940 Date of evaluation: 02/04/2023 Provider: Ana Seymour MD CHIEF COMPLAINT Chief Complaint Patient presents with Dementia HISTORY OF PRESENT ILLNESS (Location/Symptom, Timing/Onset, Context/Setting, Quality, Duration, Modifying Factors, Severity) Note limiting factors. I wore a surgical mask for the entirety of this encounter. Albina Brown is a 82 y.o. female with a past medical history of dementia, breast cancer, hyperlipidemia, anxiety presenting after being found wandering outside on the street. Her daughter saw her wandering on the ring camera and called police and she was ultimately located. Patient self says that she just "wanted to go for a walk. "She also believes that her is still alive unfortunately he on the fourth of this month but she does not remember. She complains of no chest pain, nausea, vomiting, shortness of breath or abdominal pain currently though I question the reliability of her history. Her daughter arrives and states patient lives alone. The ring camera woke her up and she saw her leaving and was able to get there by the time patient had wandered completely down the street and around the corner. She lives about 10 minutes away from her law. She states that this is the second time that she has gotten out like this but they did not take her to the hospital this time. She was reportedly found laying on her side, but patient states she does not remember falling really and is in no pain. She was lying propped up on her left side but did not appear to have struck her head and was not otherwise acting abnormally. We had shared discussion regarding the safety of patient living alone in the future. She states that been working very hard to get her aunt (patient's sister) to come stay with her and live with her with also 11 hours of an Medicare approved home health aide per week but this has not been arranged yet. Her who is the patient's biological son will be here soon and they would like to wait for the results of the urine before making a decision, but I highly recommend admission for evaluation for consideration of placement in this case. Past Medical history reviewed. REVIEW OF SYSTEMS Negative except for above HPI Review of Systems PAST MEDICAL HISTORY Past Medical History: Diagnosis Date Acid reflux Anxiety Breast cancer (HCC) Hyperlipidemia SURGICAL HISTORY Past Surgical History: Procedure Laterality Date BREAST BIOPSY BREAST LUMPECTOMY 11/21/2019 CATARACT EXTRACTION COLONOSCOPY TUBAL LIGATION WISDOM TOOTH EXTRACTION CURRENT MEDICATIONS Previous Medications ASCORBIC ACID (VITAMIN C) 500 MG CHEWABLE TABLET Chew 500 mg in the morning. ASPIRIN 81 MG CHEWABLE TABLET Chew 81 mg in the morning. CHOLECALCIFEROL (VITAMIN D-3) 25 MCG (1000 UT) CAPSULE Take 1 capsule by mouth in the morning. CITALOPRAM (CELEXA) 20 MG TABLET DONEPEZIL (ARICEPT) 5 MG TABLET Take 10 mg by mouth before bedtime. MECLIZINE (ANTIVERT) 25 MG TABLET Take 1 tablet by mouth 3 times daily as needed. MISC NATURAL PRODUCTS (HERBAL ENERGY COMPLEX PO) Take by mouth daily. [place] Noé- herbal MULTIPLE VITAMIN (MULTIVITAMIN ADULT PO) Take 1 tablet by mouth in the morning. OMEPRAZOLE (PRILOSEC) [address] CAPSULE TAMOXIFEN (NOLVADEX) 20 MG TABLET Take 1 tablet (20 mg total) by mouth daily. ALLERGIES Patient has no known allergies. FAMILY HISTORY No family history on file. SOCIAL HISTORY Social History Socioeconomic History Marital status: Tobacco Use Smoking status: Never Smokeless tobacco: Never SCREENINGS PHYSICAL EXAM (up to 7 for level 4, 8 or more for level 5) @EDTRIAGEVSS@ Physical Exam Vitals and nursing note reviewed. Constitutional: General: She is not in acute distress. Appearance: Normal appearance. HENT: Head: Normocephalic and atraumatic. Nose: Nose normal. Eyes: Conjunctiva/sclera: Conjunctivae normal. Cardiovascular: Rate and Rhythm: Normal rate. Pulmonary: Effort: Pulmonary effort is normal. No respiratory distress. Abdominal: General: Abdomen is flat. There is no distension. Skin: General: Skin is warm and dry. Capillary Refill: Capillary refill takes less than 2 seconds. Neurological: Mental Status: She is alert. Comments: Facial movements symmetric, no facial droop, PERRLA, IOMI, moves all extremities equally and symmetrically, speech is fluent and clear, ambulates without difficulty. Psychiatric: Behavior: Behavior normal. EMERGENCY DEPARTMENT COURSE and DIFFERENTIAL DIAGNOSIS/MDM: Vitals: Vitals: 02/04/23 0142 BP: (!) 155/91 BP Location: Right arm Patient Position: Lying Pulse: 87 Resp: 16 Temp: 36.6 C (97.9 F) TempSrc: Oral SpO2: 98% Medications sodium chloride 0.9 % bolus 500 mL (0 mL IntraVENous Stopped 02/04/23 9805) cefTRIAXone (Rocephin) 1,000 mg in sodium chloride 0.9 % 50 mL IVPB Mini-Bag Plus (0 mg IntraVENous Stopped 02/04/23 5349) Medical Decision Making ADDITIONAL MEDICAL DESICION MAKING IS DOCUMENTED IN THE ED COURSE. PLEASE REFER TO ED COURSE. Albina Brown is a 82 y.o. female with a past medical history of dementia, breast cancer, hyperlipidemia, anxiety presenting after being found wandering outside on the street. Her daughter saw her wandering on the ring camera and called police and she was ultimately located. Patient self says that she just "wanted to go for a walk. "She also believes that her is still alive unfortunately he on the fourth of this month but she does not remember. She complains of no chest pain, nausea, vomiting, shortness of breath or abdominal pain currently though I question the reliability of her history. Her daughter arrives and states patient lives alone. The ring camera woke her up and she saw her leaving and was able to get there by the time patient had wandered completely down the street and around the corner. She lives about 10 minutes away from her law. She states that this is the second time that she has gotten out like this but they did not take her to the hospital this time. She was reportedly found laying on her side, but patient states she does not remember falling really and is in no pain. She was lying propped up on her left side but did not appear to have struck her head and was not otherwise acting abnormally. We had shared discussion regarding the safety of patient living alone in the future. She states that been working very hard to get her aunt (patient's sister) to come stay with her and live with her with also 11 hours of an Medicare approved home health aide per week but this has not been arranged yet. Her who is the patient's biological son will be here soon and they would like to wait for the results of the urine before making a decision, but I highly recommend admission for evaluation for consideration of placement in this case. On physical exam: Very pleasant, nonfocal neurologic exam, nontoxic-appearing woman seen calmly in bed. Differential diagnoses considered include: Urinary tract infection, advancing dementia, unsafe so low living arrangement at home Plan: CBC BMP, urinalysis anticipate admission Problems Addressed: Advancing dementia (HCC): complicated acute illness or injury Amount and/or Complexity of Data Reviewed Independent Historian: Details: adult daughter in law Labs: ordered. Risk Decision regarding hospitalization. All independent interpretations of EKGs are documented in [facility]. ED Course as of 02/04/23553Feb 04, 2023 0553 Mentally, patient found to have UTI. They are unable to provide between the 2 of them a safe [id number] observation at home for her during treatment of this illness and will they are unsure if they want her placed or not yet, they think they want to explore inpatient options for this including and up to a full memory care unit versus additional outpatient resources to help her. I think this is a safer short-term plan given multiple episodes of patient getting out of her home and being found in unsafe situations. Patient has been accepted to internal medicine under Dr. Farmer. [BJ] ED Course User Index [BJ] Ana Seymour MD Diagnoses as of 02/04/23553 Advancing dementia (HCC) CONSULTS: None PROCEDURES: Unless otherwise noted below, none Procedures FINAL IMPRESSION 1. Advancing dementia (HCC) DISPOSITION/PLAN DISPOSITION Admit 02/04/2023 05:49:52 AM PATIENT REFERRED TO: No follow-up provider specified. DISCHARGE MEDICATIONS: New Prescriptions No medications on file @[facility]([id number]:LAST:1) @ (Please note: Portions of this note were completed with a voice recognition program. Efforts were made to edit the dictations but occasionally words and phrases are mis-transcribed.) Form [id number] Ana Seymour MD (electronically signed) Emergency Medicine Provider ] Ana Seymour MD 02/04/23553 [facility] 12-12-2022 Note HNO ID: [id number] Author: Madyson Collins, DO Service: ? Author Type: Physician Type: Progress Notes Filed: 12/16/2022 8:43 PM Note Text: [facility] Jaimee Collins DO [address] [place] [address] Date of Evaluation: 12/12/2022 Patient Name: Albina Brown : 1940 Chief Complaint: Patient presents with: Memory Loss Leg Edema: Mostly right, some left Incontinence: urinary Nursing Intake: There are no exam notes on file for this visit. Subjective Ms. Brown is a 82 year old female who presents with the following complaint(s): The history is provided by the patient and a relative. 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 Hypercholesterolemia This is a chronic problem. The current episode started more than 1 year ago. Pertinent negatives include no chest pain or shortness of breath. Per daughter in law patient has been having more memory loss with daily routine. Would like to discuss switching medications. Review of Systems Constitutional: Negative for fatigue and unexpected weight change. HENT: Negative for nosebleeds. Eyes: Negative for redness and visual disturbance. Respiratory: Negative for apnea, cough and shortness of breath. Cardiovascular: Negative for chest pain, palpitations and leg swelling. Genitourinary: Positive for frequency (with urianry incontinence). Negative for hematuria. Neurological: Negative for dizziness, weakness, light-headedness, numbness and headaches. Memory loss Hematological: Does not bruise/bleed easily. Psychiatric/Behavioral: The patient is not nervous/anxious. History reviewed. No pertinent past medical history. PAST SURGICAL HISTORY Procedure Laterality Date BREAST SURGERY 2019 Breast cancer- left FAMILY HISTORY Problem Relation Age of Onset Hypertension Mother Cancer Father Cancer Brother Social History Tobacco Use Smoking status: Former Types: Cigarettes Smokeless tobacco: Never Vaping Use Vaping Use: Never used Substance Use Topics Alcohol use: Not Currently Drug use: Never Current Outpatient Medications Medication Sig omeprazole (PRILOSEC) 20 mg capsule TAKE 1 CAPSULE BY MOUTH ONCE DAILY citalopram (CELEXA) 40 mg tablet TAKE 1 TABLET BY MOUTH EVERY DAY donepezil (ARICEPT) 10 mg tablet Take 1 tablet by mouth daily at bedtime. meclizine (ANTIVERT) 25 mg tab Take 1 tablet by mouth three times daily as needed. multivitamin (MULTIPLE VITAMINS ORAL) Take 1 tablet by mouth once daily. (CENTRUM SILVER ADULT 50+ PO) ascorbic acid, vitamin C, (VITAMIN C) 500 mg tablet Take 500 mg by mouth. aspirin 81 mg chewable tablet Take 81 mg by mouth. Cholecalciferol, Vitamin D3, 25 mcg (1,000 unit) cap Take 1 capsule by mouth. tamoxifen (NOLVADEX) 20 mg tablet Take 20 mg by mouth once daily. ZINC ACETATE ORAL Take 50 mg by mouth once daily. vitamin B complex (B COMPLEX-VITAMIN B12 ORAL) Take 1,000 mg by mouth once daily. memantine XR (NAMENDA XR) 21 mg CSpX Take 1 capsule by mouth once daily. tolterodine ER (DETROL LA) 2 mg 24 hr capsule Take 1 capsule by mouth once daily. omeprazole (PRILOSEC) 20 mg capsule (Patient not taking: Reported on 12/12/2022) donepezil (ARICEPT) 23 mg tablet Take 1 tablet by mouth daily at bedtime. (Patient not taking: Reported on 12/12/2022) donepezil (ARICEPT) 5 mg tablet Take 1 tablet by mouth daily at bedtime. (Patient not taking: Reported on 12/12/2022) simvastatin (ZOCOR) 20 mg tablet Take 20 mg by mouth daily at bedtime. (Patient not taking: Reported on 07/04/2022) No current facility-administered medications for this visit. I have confirmed and edited as necessary the past medical, family and social histories, HPI, and ROS obtained by others. Objective BP 122/70 Pulse 65 Temp 98.3 Ht 5' 3" (1.60m) Wt 169 lb (76.7kg) SpO2 96% BMI 29.94 kg/(m2). Physical Exam Vitals and nursing note reviewed. Constitutional: General: She is not in acute distress. Appearance: Normal appearance. She is well-developed. She is not ill-appearing. HENT: Head: Normocephalic. Right Ear: Tympanic membrane, ear canal and external ear normal. There is no impacted cerumen. Left Ear: Tympanic membrane, ear canal and external ear normal. There is no impacted cerumen. Nose: Nose normal. Mouth/Throat: Mouth: Mucous membranes are moist. Pharynx: Oropharynx is clear. Uvula midline. No oropharyngeal exudate or posterior oropharyngeal erythema. Eyes: General: Lids are normal. Vision grossly intact. Gaze aligned appropriately. No scleral icterus. Right eye: No discharge. Left eye: No discharge. Extraocular Movements: Extraocular movements intact. Conjunctiva/sclera: Conjunctivae normal. Pupils: Pupils are equal, round, and reactive to light. Neck: Thyroid: No thyroid mass, thyromegaly or thyroid tenderness. Vascular: No (more content not included)... [facility] 12-12-2022 History of Presen t illness Narrative Images from the original note were not included. [facility] Jaimee Collins DO [address] [place] [address] Date of Evaluation: 12/12/2022 Patient Name: Albina Brown : 1940 Chief Complaint: Patient presents with: Memory Loss Leg Edema: Mostly right, some left Incontinence: urinary Nursing Intake: There are no exam notes on file for this visit. Subjective Ms. Brown is a 82 year old female who presents with the following complaint(s): The history is provided by the patient and a relative. 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 Hypercholesterolemia This is a chronic problem. The current episode started more than 1 year ago. Pertinent negatives include no chest pain or shortness of breath. Per daughter in law patient has been having more memory loss with daily routine. Would like to discuss switching medications. Review of Systems Constitutional: Negative for fatigue and unexpected weight change. HENT: Negative for nosebleeds. Eyes: Negative for redness and visual disturbance. Respiratory: Negative for apnea, cough and shortness of breath. Cardiovascular: Negative for chest pain, palpitations and leg swelling. Genitourinary: Positive for frequency (with urianry incontinence). Negative for hematuria. Neurological: Negative for dizziness, weakness, light-headedness, numbness and headaches. Memory loss Hematological: Does not bruise/bleed easily. Psychiatric/Behavioral: The patient is not nervous/anxious. History reviewed. No pertinent past medical history. PAST SURGICAL HISTORY Procedure Laterality Date BREAST SURGERY 2019 Breast cancer- left FAMILY HISTORY Problem Relation Age of Onset Hypertension Mother Cancer Father Cancer Brother Social History Tobacco Use Smoking status: Former Types: Cigarettes Smokeless tobacco: Never Vaping Use Vaping Use: Never used Substance Use Topics Alcohol use: Not Currently Drug use: Never Current Outpatient Medications Medication Sig omeprazole (PRILOSEC) 20 mg capsule TAKE 1 CAPSULE BY MOUTH ONCE DAILY citalopram (CELEXA) 40 mg tablet TAKE 1 TABLET BY MOUTH EVERY DAY donepezil (ARICEPT) 10 mg tablet Take 1 tablet by mouth daily at bedtime. meclizine (ANTIVERT) 25 mg tab Take 1 tablet by mouth three times daily as needed. multivitamin (MULTIPLE VITAMINS ORAL) Take 1 tablet by mouth once daily. (CENTRUM SILVER ADULT 50+ PO) ascorbic acid, vitamin C, (VITAMIN C) 500 mg tablet Take 500 mg by mouth. aspirin 81 mg chewable tablet Take 81 mg by mouth. Cholecalciferol, Vitamin D3, 25 mcg (1,000 unit) cap Take 1 capsule by mouth. tamoxifen (NOLVADEX) 20 mg tablet Take 20 mg by mouth once daily. ZINC ACETATE ORAL Take 50 mg by mouth once daily. vitamin B complex (B COMPLEX-VITAMIN B12 ORAL) Take 1,000 mg by mouth once daily. memantine XR (NAMENDA XR) 21 mg CSpX Take 1 capsule by mouth once daily. tolterodine ER (DETROL LA) 2 mg 24 hr capsule Take 1 capsule by mouth once daily. omeprazole (PRILOSEC) 20 mg capsule (Patient not taking: Reported on 12/12/2022) donepezil (ARICEPT) 23 mg tablet Take 1 tablet by mouth daily at bedtime. (Patient not taking: Reported on 12/12/2022) donepezil (ARICEPT) 5 mg tablet Take 1 tablet by mouth daily at bedtime. (Patient not taking: Reported on 12/12/2022) simvastatin (ZOCOR) 20 mg tablet Take 20 mg by mouth daily at bedtime. (Patient not taking: Reported on 07/04/2022) No current facility-administered medications for this visit. I have confirmed and edited as necessary the past medical, family and social histories, HPI, and ROS obtained by others. Objective BP 122/70 Pulse 65 Temp 98.3 Ht 5' 3" (1.60m) Wt 169 lb (76.7kg) SpO2 96% BMI 29.94 kg/(m^2). Physical Exam Vitals and nursing note reviewed. Constitutional: General: She is not in acute distress. Appearance: Normal appearance. She is well-developed. She is not ill-appearing. HENT: Head: Normocephalic. Right Ear: Tympanic membrane, ear canal and external ear normal. There is no impacted cerumen. Left Ear: Tympanic membrane, ear canal and external ear normal. There is no impacted cerumen. Nose: Nose normal. Mouth/Throat: Mouth: Mucous membranes are moist. Pharynx: Oropharynx is clear. Uvula midline. No oropharyngeal exudate or posterior oropharyngeal erythema. Eyes: General: Lids are normal. Vision grossly intact. Gaze aligned appropriately. No scleral icterus. Right eye: No discharge. Left eye: No discharge. Extraocular Movements: Extraocular movements intact. Conjunctiva/sclera: Conjunctivae normal. Pupils: Pupils are equal, round, and reactive to light. Neck: Thyroid: No thyroid mass, thyromegaly or thyroid tenderness. Vascular: No carotid bruit. Trachea: Trachea and phonation normal. Cardiovascular: Rate and Rhythm: Normal rate and regular rhythm. Pulses: Normal pulses. Heart sounds: Normal heart sounds. Pulmonary: Effort: Pulmonary effort is normal. Breath sounds: Normal breath sounds. Abdominal: General: Abdomen is flat. Bowel sounds are normal. Palpations: Abdomen is soft. Musculoskeletal: General: Normal range of motion. Right shoulder: Normal. Left shoulder: Normal. Cervical back: Normal, full passive range of motion without pain and neck supple. No tenderness. No spinous process tenderness. Thoracic back: Normal. Lumbar back: Normal. Right knee: Normal. Left knee: Normal. Right lower leg: No edema. Left lower leg: No edema. Lymphadenopathy: Cervical: No cervical adenopathy. Skin: General: Skin is warm and dry. Neurological: General: No focal deficit present. Mental Status: She is alert and oriented to person, place, and time. Mental status is at baseline. Sensory: Sensation is intact. Motor: Motor function is intact. Psychiatric: Attention and Perception: Attention and perception normal. Mood and Affect: Mood normal. Speech: Speech normal. Behavior: Behavior normal. Thought Content: Thought content normal. Judgment: Judgment normal. Data Reviewed: No new labs ASSESSMENT/PLAN: 1. Age-related cognitive decline - ICD9: 294.9, ICD10: R41.81 (primary diagnosis) - DC Aricept - Start Namenda - PARKING FOR HANDICAPPED - MEMANTINE 21 MG CAPSULE SPRINKLE,EXTENDED RELEASE 24HR 2. Hyperlipidemia, mixed - ICD9: 272.2, ICD10: E78.2 - Control undetermined, due for labs - CBC + DIFF - COMP METABOLIC PANEL - LIPID PANEL BASIC - URINALYSIS, WITH MICROSCOPIC 3. Bilateral leg edema - ICD9: 782.3, ICD10: R60.0 - Elevated legs - Wear compression hose. 4. Overweight with body mass index (BMI) of 29 to 29.9 in adult - ICD9: 278.02, V85.25, ICD10: E66.3, Z68.29 5. Anxiety with depression - ICD9: 300.4, ICD10: F41.8 6. Screening for thyroid disorder - ICD9: V77.0, ICD10: Z13.29 - TSH BLD 7. Varicose veins of bilateral lower extremities with other complications - ICD9: 454.8, ICD10: I83.893 8. Female stress incontinence - ICD9: 625.6, ICD10: N39.3 - Start Detrol LA - TOLTERODINE ER 2 MG CAPSULE,EXTENDED RELEASE 24 HR Madyson Collins DO Return in about 6 months (around 06/14/2023). Attestation: Scribe Statement: Aleshia Strong am scribing for, and in the presence of, Madyson Collins DO December 12, 2022 4:42 PM. Physician Statement: IMadyson DO, personally performed the services described in the documentation, as scribed by Christine Strong in my presence, and it is both accurate and complete December 12, 2022 4:50 PM. documented in this encounter [facility] 09-30-2022 Miscellaneous Notes Pharmacy faxed requesting the following refill Refill(s) Requested: Requested Prescriptions Pending Prescriptions Disp Refills citalopram (CELEXA) 40 mg tablet [Pharmacy Med Name: CITALOPRAM HBR 40 MG TABLET] 90 tablet 3 Sig: TAKE 1 TABLET BY MOUTH EVERY DAY ALLERGIES No Known Allergies (home) [phone] (cell) Last Office Visit Date: 07/04/2022 Last [facility] Visit: Visit date not found Future Appointment: 01/16/2023 The patients preferred pharmacy has been captured for this encounter? yes Request is for script(s) to be escript to pharmacy. 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 Tumor measured 1.5 cm. Lymph nodes not evaluated at the time of surgery (given favorable prognosis, no additional lymph node evaluation planned). 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 Given favorable risk, older age, hormone receptor positive disease; elected against adjuvant radiation. Initiated adjuvant tamoxifen December 2019 (elected against aromatase inhibitor given favorable risk with baseline osteopenia and history of falls). New right-sided breast mass measuring 0.5 cm on mammogram/ultrasound. Status post core needle biopsy December 2021 with atypical papillary lesion. She declined excisional biopsy given increasing dementia. Other PMHx 1. DLD 2. GERD 3. Anxiety 4. Dementia Social History Social History Tobacco Use Smoking status: Never Smokeless tobacco: Never Family History Sister - breast ca at 70 yo Interval History: Compliant with tamoxifen. Memory/dementia gradually progressing over time. Denies new breast lesions or masses. Physical exam: Vitals reviewed Alert, NAD, ecog 2 Imaging/Labs: [facility] 12/22/19: osteopenia (t score -1.7) Mammogram Nov 2021: Questionable new mass involving the right breast. Diagnostic mammogram and ultrasound December 2021 with 0.5 cm irregular hypoechoic mass involving the right breast. Normal axillary lymph nodes identified. Assessment/Plan: 82 y.o. with PMHx as above 1. 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 Tumor measured 1.5 cm. [place] lymph nodes not evaluated at the time of surgery (given favorable prognosis, no additional lymph node evaluation planned). 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 Given favorable risk, older age, hormone receptor positive disease; elected against adjuvant radiation. Initiated adjuvant tamoxifen December 2019 (elected against aromatase inhibitor given favorable risk with baseline osteopenia and history of falls). 2. Have discussed side effects of tamoxifen including but not limited to bone/joint pain, hot flashes, slight increased risk of uterine cancer, stroke and thrombosis, vision changes. Expected 5 yr breast cancer specific OS > 95%. Treatment is being given with curative intent and would continue for up to 5-10 years (potentially 5 years based on lower risk disease and depending on tolerance). Given favorable risk, absolute benefit of tamoxifen in decreasing recurrence or developing second breast cancer 3-4%. 3. We discussed risk/benefits of continued surveillance mammography. Her age with other medical duties including advancing age, utility of continued surveillance mammography likely limited. Of note, she did undergo biopsy of hypoechoic mass in the right breast in December 2021 with atypical papillary cells identified. However, she elected against excisional biopsy given dementia. After discussion, she has elected against further screening mammography. 4. Have encouraged physical activity, healthy diet, limiting alcohol intake, maintaining healthy body weight. 5. Follow up 1 year There are no other issues with medication compliance, stressors, depression, side effects of therapy other than as noted above. Discussion congruent with NCCN guidelines if applicable. she consents to treatment. Shared decision making was performed. documented in this encounter [facility] 08-14-2022 Miscellaneous Notes Orders pended for PT/OT documented in this encounter [facility] 07-04-2022 History of Presen t illness Narrative Images from the original note were not included. [facility] [place] [address] [place] [address] Date of Evaluation: 07/04/2022 Patient Name: Albina Brown : 1940 Chief Complaint: Patient presents with: Anxiety Hyperlipidemia: Nursing Intake: There are no exam notes on file for this visit. Subjective Ms. Brown is a 82 year old female who presents with the following complaint(s): The history is provided by the patient. 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 Anxiety Pertinent negatives include no weakness. This is a chronic problem. Hypercholesterolemia This is a chronic problem. The current episode started more than 1 year ago. Pertinent negatives include no chest pain or shortness of breath. Review of Systems Constitutional: Negative for fatigue and unexpected weight change. HENT: Negative for nosebleeds. Eyes: Negative for redness and visual disturbance. Respiratory: Negative for apnea, cough and shortness of breath. Cardiovascular: Negative for chest pain, palpitations and leg swelling. Genitourinary: Negative for hematuria. Neurological: Negative for dizziness, weakness, light-headedness, numbness and headaches. Hematological: Does not bruise/bleed easily. Psychiatric/Behavioral: The patient is nervous/anxious. History reviewed. No pertinent past medical history. PAST SURGICAL HISTORY Procedure Laterality Date BREAST SURGERY 2019 Breast cancer- left FAMILY HISTORY Problem Relation Age of Onset Hypertension Mother Cancer Father Cancer Brother Social History Tobacco Use Smoking status: Former Types: Cigarettes Smokeless tobacco: Never Vaping Use Vaping Use: Never used Substance Use Topics Alcohol use: Not Currently Drug use: Never Current Outpatient Medications Medication Sig Dispense Refill omeprazole (PRILOSEC) 20 mg capsule donepezil (ARICEPT) 10 mg tablet Take 1 tablet by mouth daily at bedtime. 90 tablet 3 meclizine (ANTIVERT) 25 mg tab Take 1 tablet by mouth three times daily as needed. 20 tablet 2 omeprazole (PRILOSEC) 20 mg capsule Take 1 capsule by mouth once daily. 90 capsule 3 multivitamin (MULTIPLE VITAMINS ORAL) Take 1 tablet by mouth once daily. (CENTRUM SILVER ADULT 50+ PO) ascorbic acid, vitamin C, (VITAMIN C) 500 mg tablet Take 500 mg by mouth. aspirin 81 mg chewable tablet Take 81 mg by mouth. Cholecalciferol, Vitamin D3, 25 mcg (1,000 unit) cap Take 1 capsule by mouth. tamoxifen (NOLVADEX) 20 mg tablet Take 20 mg by mouth once daily. ZINC ACETATE ORAL Take 50 mg by mouth once daily. vitamin B complex (B COMPLEX-VITAMIN B12 ORAL) Take 1,000 mg by mouth once daily. donepezil (ARICEPT) 23 mg tablet Take 1 tablet by mouth daily at bedtime. 90 tablet 3 donepezil (ARICEPT) 5 mg tablet Take 1 tablet by mouth daily at bedtime. 90 tablet 3 citalopram (CELEXA) 40 mg tablet Take 1 tablet by mouth once daily. 90 tablet 3 simvastatin (ZOCOR) 20 mg tablet Take 20 mg by mouth daily at bedtime. (Patient not taking: Reported on 07/04/2022) No current facility-administered medications for this visit. I have confirmed and edited as necessary the past medical, family and social histories, HPI, and ROS obtained by others. Objective BP 120/70 Pulse 71 Ht 5' 3" (1.60m) Wt 163 lb (73.9kg) SpO2 98% BMI 28.88 kg/(m^2). Physical Exam Vitals and nursing note reviewed. Constitutional: General: She is not in acute distress. Appearance: Normal appearance. She is well-developed. She is not ill-appearing. HENT: Head: Normocephalic. Right Ear: Tympanic membrane, ear canal and external ear normal. There is no impacted cerumen. Left Ear: Tympanic membrane, ear canal and external ear normal. There is no impacted cerumen. Nose: Nose normal. Mouth/Throat: Mouth: Mucous membranes are moist. Pharynx: Oropharynx is clear. Uvula midline. No oropharyngeal exudate or posterior oropharyngeal erythema. Eyes: General: Lids are normal. Vision grossly intact. Gaze aligned appropriately. No scleral icterus. Right eye: No discharge. Left eye: No discharge. Extraocular Movements: Extraocular movements intact. Conjunctiva/sclera: Conjunctivae normal. Pupils: Pupils are equal, round, and reactive to light. Neck: Thyroid: No thyroid mass, thyromegaly or thyroid tenderness. Vascular: No carotid bruit. Trachea: Trachea and phonation normal. Cardiovascular: Rate and Rhythm: Normal rate and regular rhythm. Pulses: Normal pulses. Heart sounds: Normal heart sounds. Pulmonary: Effort: Pulmonary effort is normal. Breath sounds: Normal breath sounds. Abdominal: General: Abdomen is flat. Bowel sounds are normal. Palpations: Abdomen is soft. Musculoskeletal: General: Normal range of motion. Right shoulder: Normal. Left shoulder: Normal. Cervical back: Normal, full passive range of motion without pain and neck supple. No tenderness. No spinous process tenderness. Thoracic back: Normal. Lumbar back: Normal. Right knee: Normal. Left knee: Normal. Right lower leg: No edema. Left lower leg: No edema. Lymphadenopathy: Cervical: No cervical adenopathy. Skin: General: Skin is warm and dry. Neurological: General: No focal deficit present. Mental Status: She is alert and oriented to person, place, and time. Mental status is at baseline. Sensory: Sensation is intact. Motor: Motor function is intact. Psychiatric: Attention and Perception: Attention and perception normal. Mood and Affect: Mood normal. Speech: Speech normal. Behavior: Behavior normal. Thought Content: Thought content normal. Judgment: Judgment normal. Data Reviewed: No new labs ASSESSMENT/PLAN: 1. Mixed hyperlipidemia - ICD9: 272.2, ICD10: E78.2 (primary diagnosis) 2. Dementia without behavioral disturbance (HCC) - ICD9: 294.20, ICD10: F03.90 - Stable 3. Anxiety with depression - ICD9: 300.4, ICD10: F41.8 4. BMI 28.0-28.9,adult - ICD9: V85.24, ICD10: Z68.28 Madyson Collins DO Return in about 6 months (around 01/04/2023) for medication follow up. Attestation: Scribe Statement: Aleshia Strong am scribing for, and in the presence of, Madyson Collins DO July 04, 2022 4:29 PM. Physician Statement: I, Madyson Collins DO, personally performed the services described in the documentation, as scribed by Christine Strong in my presence, and it is both accurate and complete July 04, 2022 4:31 PM. documented in this encounter [facility] 06-23-2022 Telephone encounter Note Dtr called and said her Tamoxifin has and needs a new on sent to [facility], [facility] 06-23-2022 Miscellaneous Notes Dtr called and said her Tamoxifin has and needs a new on sent to [facility], documented in this encounter [facility] 06-12-2022 Miscellaneous Notes Returned Letha's call and left a message with information that Dr Collins is out of the office at this time but the paper work is on his desk to be signed when he returns. Letha with [facility] called in requesting an update on the paper work that was faxed for the patient on 06/05/22. She said this was a physician statement. Her call back number is [phone] documented in this encounter [facility] 05-08-2022 Instructions Anabell Gonzalez PA-C - 05/08/2022 6:04 PM EST [facility] PATIENT INFO SKIN INFECTION OVERVIEW Cellulitis is an infection of the skin and soft tissue of the skin. The infection is usually caused by bacteria that normally live on the skin, such as staphylococci ("Staph") or streptococci ("Strep"). The infection develops when there is a break in the skin, such as a wound or injury, which may be minor. This allows bacteria to enter the skin and grow, causing infection and swelling. Most cases of cellulitis are mild and heal completely with antibiotic treatment. However, the infection can become severe and cause a bodywide infection if left untreated. It is important to seek medical care promptly if you could have a skin infection. SKIN INFECTION RISK FACTORS Certain conditions increase the risk of developing cellulitis. These include: Recent injury to the skin (a wound, abrasion, cut, recent shaving, or injection drug use) Swelling of the skin due to radiation therapy Current skin infection, such as athlete's foot or impetigo Accumulation of fluid (edema) due to poor circulation, heart failure, liver disease, or past surgery to remove lymph nodes Being overweight Chronic skin conditions, such as eczema or psoriasis However, cellulitis can also develop in people who have no known risk factors. SKIN INFECTION SYMPTOMS Cellulitis -- The most common symptom of cellulitis is pain or tenderness. Other cellulitis symptoms can include swelling, warmth, and redness in a distinct area of skin. These symptoms usually worsen and the redness may expand over the course of a few days. The skin is usually smooth and shiny rather than raised or bumpy. Fever and chills are not common. The most common areas of the body for cellulitis to develop include the legs and the arms; it can also develop around the eye, on the abdominal wall, in the mouth, and around the anus. Other skin infections -- Other types of skin infections include abscesses, furuncles ("boils"), and carbuncles. These usually cause a collection of pus under the skin. Skin that is raised, reddened, tender, and pus-filled may be caused by a skin infection known as methicillin-resistant Staphylococcus aureus (MRSA). DO I NEED TO BE EXAMINED? There are many types and causes of skin infections, and it is important to know the most likely cause of the infection before beginning treatment. Using the wrong treatment could allow the infection to worsen. To ensure that the correct treatment is used, it is important to be evaluated by a healthcare provider. SKIN INFECTION TREATMENT Cellulitis treatment includes antibiotics as well as treatment of any underlying condition that led to the skin infection. Elevate the area -- Elevating the arm or leg above the level of the heart can help to reduce swelling and speed healing. Keep the area clean and dry -- It is important to keep the infected area clean and dry. You can shower or bathe normally, and pat the area dry with a clean towel. You can use a bandage or gauze to protect the skin, if needed. Do not use any antibiotic ointments or creams. Antibiotics -- Most people with cellulitis are treated with an antibiotic that is taken by mouth for one to two weeks. The "best" antibiotic depends upon your situation. If the infection is severe, you may need to be hospitalized and treated with antibiotics given into a vein (IV). It is important to take the antibiotic exactly as recommended and to finish the entire course of treatment. Skipping doses or ending treatment early could potentially allow the bacteria to become resistant and require longer treatment. Time to heal -- The swelling, warmth, and redness should begin to improve within one to three days after starting antibiotics, although these symptoms can persist for two weeks. If the reddened area becomes larger, more swollen, or more tender, call your healthcare provider. He or she may want to reexamine you to determine if further testing or an alternate antibiotic are needed. SKIN INFECTION PROGNOSIS In most cases, you will recover completely from an episode of cellulitis without any complications. If you have skin infection risk factors talk to your healthcare provider to determine if there are steps you can take to minimize the risk of infections in the future. documented in this encounter [facility] 05-08-2022 History of Presen t illness Narrative Subjective Albina Brown is a 81 year old female with a past medical history of GERD, anxiety, depression, and dementia who presents to [facility] today for evaluation of cat scratches to her right arm which happened yesterday. Patient states that she has noticed throughout the day today has been getting warm and swollen. She denies having any fevers. Last tetanus was in July 2017. Review of Systems Constitutional: Negative for chills, diaphoresis and fever. Skin: Positive for color change (right forearm redness) and wound (right forearm scratches). All other systems reviewed and are negative. Objective BP 117/63 Pulse 75 Temp 36.4 C (97.5 F) Resp 16 Ht 160 cm (5' 3") Wt 78 kg (172 lb) SpO2 98% BMI 30.47 kg/m Physical Exam Vitals reviewed. Constitutional: General: She is not in acute distress. Appearance: Normal appearance. She is normal weight. She is not ill-appearing or toxic-appearing. Comments: The patient appears to be non-toxic, in no acute distress, and resting comfortably on the table. HENT: Head: Normocephalic and atraumatic. Cardiovascular: Rate and Rhythm: Normal rate and regular rhythm. Heart sounds: Normal heart sounds. No murmur heard. No friction rub. No gallop. Pulmonary: Effort: Pulmonary effort is normal. No respiratory distress. Breath sounds: Normal breath sounds. No wheezing. Musculoskeletal: Cervical back: Normal range of motion. Skin: General: Skin is warm and dry. Findings: Erythema and laceration (multiple superficial lacerations to right forearm with surrounding erythema) present. No rash. Neurological: General: No focal deficit present. Mental Status: She is alert and oriented to person, place, and time. Mental status is at baseline. Psychiatric: Mood and Affect: Mood normal. Behavior: Behavior normal. Thought Content: Thought content normal. Assessment and Plan Exam reveals erythema and warmth to the right forearm with multiple superficial lacerations. The most concerning for cellulitis. Patient will be started on antibiotics. Patient counseled regarding suspected diagnosis and given prescription for Keflex. Patient advised to follow-up with her primary care provider as needed for any new or worsening symptoms. ASSESSMENT/PLAN: 1. Cellulitis of right arm - ICD9: 682.3, ICD10: L03.113 (primary diagnosis) - CEPHALEXIN 500 MG CAPSULE 2. Cat scratch - ICD9: 919.0, E906.8, ICD10: W55.03XA Medical Decision Making: Problems: Low: Acute, uncomplicated illness or injury Risk: Minimal: Minimal risk from testing/treatment Moderate: Drug management Medical Decision Making Level: 3 - Low I spent a total of 20 minutes on the date of the service which included preparing to see the patient, [id number] patient care, completing clinical documentation, performing a medically appropriate examination, counseling and educating the patient/family/caregiver, and ordering medications, tests, or procedures. documented in this encounter [facility] 04-25-2022 Telephone encounter Note Name of caller: Renetta Contact phone number: [phone] Relationship to Patient: Daughter Provider: Practice: General Surgery Chief Complaint/Reason for Call: Patients daughter calling to cancel appointment on 04/29/22. Daughter states PCP does not feel that with the patients cognitive decline that it is a good idea at this time. They have changed her medication with no improvement. FYI Best time of day caller can be reached: any Patient advised that office/PCP has 24-48 business hours to return their call: no [facility] 04-25-2022 Miscellaneous Notes Name of caller: Renetta Contact phone number: [phone] Relationship to Patient: Daughter Provider: Practice: General Surgery Chief Complaint/Reason for Call: Patients daughter calling to cancel appointment on 04/29/22. Daughter states PCP does not feel that with the patients cognitive decline that it is a good idea at this time. They have changed her medication with no improvement. FYI Best time of day caller can be reached: any Patient advised that office/PCP has 24-48 business hours to return their call: no documented in this encounter [facility] 01-03-2022 History of Presen t illness Narrative Images from the original note were not included. [facility] [address] [place] [address] Date of Evaluation: 01/03/2022 Patient Name: Albina Brown : 1940 Chief Complaint: Patient presents with: Follow Up Nursing Intake: There are no exam notes on file for this visit. Subjective Ms. Brown is a 81 year old female who presents with the following complaint(s): The history is provided by the patient. 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 Hypercholesterolemia This is a chronic problem. The current episode started more than 1 year ago. Pertinent negatives include no chest pain or shortness of breath. Review of Systems Constitutional: Negative for fatigue and unexpected weight change. HENT: Negative for nosebleeds. Eyes: Negative for redness and visual disturbance. Respiratory: Negative for apnea, cough and shortness of breath. Cardiovascular: Negative for chest pain, palpitations and leg swelling. Genitourinary: Negative for hematuria. Neurological: Negative for dizziness, weakness, light-headedness, numbness and headaches. Memory loss Hematological: Does not bruise/bleed easily. Psychiatric/Behavioral: The patient is not nervous/anxious. No past medical history on file. PAST SURGICAL HISTORY Procedure Laterality Date BREAST SURGERY HX 2019 Breast cancer- left FAMILY HISTORY Problem Relation Age of Onset Hypertension Mother Cancer Father Cancer Brother Social History Tobacco Use Smoking status: Former Types: Cigarettes Smokeless tobacco: Never Vaping Use Vaping Use: Never used Substance Use Topics Alcohol use: Not Currently Drug use: Never Current Outpatient Medications Medication Sig Dispense Refill donepezil (ARICEPT) 5 mg tablet Take 1 tablet by mouth daily at bedtime. 90 tablet 3 meclizine (ANTIVERT) 25 mg tab Take 1 tablet by mouth three times daily as needed. 20 tablet 2 citalopram (CELEXA) 40 mg tablet Take 1 tablet by mouth once daily. 90 tablet 3 omeprazole (PRILOSEC) 20 mg capsule Take 1 capsule by mouth once daily. 90 capsule 3 multivitamin (MULTIPLE VITAMINS ORAL) Take 1 tablet by mouth once daily. (CENTRUM SILVER ADULT 50+ PO) ascorbic acid, vitamin C, (VITAMIN C) 500 mg tablet Take 500 mg by mouth. aspirin 81 mg chewable tablet Take 81 mg by mouth. Cholecalciferol, Vitamin D3, 25 mcg (1,000 unit) cap Take 1 capsule by mouth. simvastatin (ZOCOR) 20 mg tablet Take 20 mg by mouth daily at bedtime. tamoxifen (NOLVADEX) 20 mg tablet Take 20 mg by mouth once daily. ZINC ACETATE ORAL Take 50 mg by mouth once daily. vitamin B complex (B COMPLEX-VITAMIN B12 ORAL) Take 1,000 mg by mouth once daily. donepezil (ARICEPT) 23 mg tablet Take 1 tablet by mouth daily at bedtime. 90 tablet 3 citalopram (CELEXA) 20 mg tablet Take 20 mg by mouth once daily. iron bisgly,ps-FA-B-C#12-succ 65 mg-65 mg -1,000 mcg (24) tab Take by mouth. No current facility-administered medications for this visit. I have confirmed and edited as necessary the past medical, family and social histories, HPI, and ROS obtained by others. Objective BP 120/80 Pulse 63 Temp 97.4 Ht 5' 3" (1.60m) Wt 162 lb (73.5kg) SpO2 98% BMI 28.70 kg/(m^2). Physical Exam Vitals and nursing note reviewed. Constitutional: General: She is not in acute distress. Appearance: Normal appearance. She is well-developed. She is not ill-appearing. HENT: Head: Normocephalic. Right Ear: Tympanic membrane, ear canal and external ear normal. There is no impacted cerumen. Left Ear: Tympanic membrane, ear canal and external ear normal. There is no impacted cerumen. Nose: Nose normal. Mouth/Throat: Mouth: Mucous membranes are moist. Pharynx: Oropharynx is clear. Uvula midline. No oropharyngeal exudate or posterior oropharyngeal erythema. Eyes: General: Lids are normal. Vision grossly intact. Gaze aligned appropriately. No scleral icterus. Right eye: No discharge. Left eye: No discharge. Extraocular Movements: Extraocular movements intact. Conjunctiva/sclera: Conjunctivae normal. Pupils: Pupils are equal, round, and reactive to light. Neck: Thyroid: No thyroid mass, thyromegaly or thyroid tenderness. Vascular: No carotid bruit. Trachea: Trachea and phonation normal. Cardiovascular: Rate and Rhythm: Normal rate and regular rhythm. Pulses: Normal pulses. Heart sounds: Normal heart sounds. Pulmonary: Effort: Pulmonary effort is normal. Breath sounds: Normal breath sounds. Abdominal: General: Abdomen is flat. Bowel sounds are normal. Palpations: Abdomen is soft. Musculoskeletal: General: Normal range of motion. Right shoulder: Normal. Left shoulder: Normal. Cervical back: Normal, full passive range of motion without pain and neck supple. No tenderness. No spinous process tenderness. Thoracic back: Normal. Lumbar back: Normal. Right knee: Normal. Left knee: Normal. Right lower leg: No edema. Left lower leg: No edema. Lymphadenopathy: Cervical: No cervical adenopathy. Skin: General: Skin is warm and dry. Neurological: General: No focal deficit present. Mental Status: She is alert and oriented to person, place, and time. Mental status is at baseline. Sensory: Sensation is intact. Motor: Motor function is intact. Psychiatric: Attention and Perception: Attention and perception normal. Mood and Affect: Mood normal. Speech: Speech normal. Behavior: Behavior normal. Thought Content: Thought content normal. Judgment: Judgment normal. Data Reviewed: Most recent labs Madyson Collins DO ASSESSMENT/PLAN: 1. Dementia without behavioral disturbance, unspecified dementia type - ICD9: 294.20, ICD10: F03.90 (primary diagnosis) - Increase Donepezil - DONEPEZIL 23 MG TABLET 2. Hyperlipidemia, mixed - ICD9: 272.2, ICD10: E78.2 - Encouraged following a low fat, low cholesterol diet. 3. Forgetfulness - ICD9: 780.99, ICD10: R68.89 4. Abnormal mammogram - ICD9: 793.80, ICD10: R92.8 - Upcoming follow up scheduled Return in about 6 months (around 07/03/2022). Attestation: Scribe Statement: I Christine Strong am scribing for, and in the presence of, Madyson Collins DO January 03, 2022 4:03 PM. Physician Statement: I, Madyson Collins DO, personally performed the services described in the documentation, as scribed by Christine Strong in my presence, and it is both accurate and complete January 03, 2022 4:10 PM. documented in this encounter [facility] 01-01-2022 Miscellaneous Notes Called and left a message for the Pt. Pt has an appointment on Wednesday 01/03 and both nurses are leaving the office early. Need to see if the pt can come in by 4 or earlier for her appt. documented in this encounter [facility] 12-27-2021 Miscellaneous Notes Patient came in for blood work. Lab orders will you please sign new orders. Pended. documented in this encounter [facility] 12-25-2021 Miscellaneous Notes Pharmacy faxed requesting the following refill Refill(s) Requested: Requested Prescriptions Pending Prescriptions Disp Refills donepezil (ARICEPT) 5 mg tablet [Pharmacy Med Name: DONEPEZIL HCL 5 MG TABLET] 90 tablet 3 Sig: Take 1 tablet by mouth daily at bedtime. ALLERGIES No Known Allergies (home) [phone] (cell) Last Office Visit Date: 10/04/2021 Last Distance Health Visit: Visit date not found Future Appointment: 01/03/2022 The patients preferred pharmacy has been captured for this encounter? yes Request is for script(s) to be escript to pharmacy. Luz Elena Hewitt LPN documented in this encounter [facility] 11-25-2021 Miscellaneous Notes Pharmacy faxed requesting the following refill Refill(s) Requested: Pending Prescriptions Disp Refills DONEPEZIL 5 MG TABLET 30 tablet 1 Sig: TAKE 1 TABLET BY MOUTH EVERYDAY AT BEDTIME RAYSA: Yes ALLERGIES No Known Allergies (home) [phone] (cell) Last Office Visit Date: 10/04/2021 Last Distance Health Visit: Visit date not found Future Appointment: 01/03/2022 The patients preferred pharmacy has been captured for this encounter? yes Request is for script(s) to be escript to pharmacy. Nicol Ventura LPN documented in this encounter [facility] 10-07-2021 Miscellaneous Notes Patiens daughter Renetta called in stating that the Exelon patch is not covered under the patients insurance. Asking if something else can be sent. [facility] [place]. documented in this encounter [facility] 10-04-2021 Miscellaneous Notes Images from the original note were not included. Changes Requested Name from pharmacy: RIVASTIGMINE 4.6 MG/24HR PATCH Will file in chart as: rivastigmine (EXELON) 4.6 mg/24 hour patch Possible duplicate: Hover to review recent actions on this medication Sig: Apply 1 Patch as directed once daily. Disp: 30 Patch Refills: 0 Start: 10/04/2021 Class: Normal Non-formulary Last ordered: Today by Madyson Collins, DO Last refill: 10/04/2021 Rx #: [id number] Pharmacy comment: Alternative Requested:NOT ON FORMUALRY, NOT COVERED. Acetylcholinesterase Inhibitor Refill Checklist Passed 10/04/2021 04:18 PM Visit with provider within last 12 months This request has changes from the previous prescription. Name from pharmacy: RIVASTIGMINE 9.5 MG/24HR PATCH Will file in chart as: rivastigmine (EXELON) 9.5 mg/24 hour patch Possible duplicate: Hover to review recent actions on this medication Sig: Apply 1 Patch as directed once daily. Disp: 30 Patch Refills: 2 Start: 10/04/2021 Class: Normal Non-formulary Last ordered: Today by Madyson Collins, Last refill: 10/04/2021 Rx #: [id number] Pharmacy comment: Alternative Requested:NOT COVERED, NOT ON FORMULARY. Acetylcholinesterase Inhibitor Refill Checklist Passed 10/04/2021 04:18 PM Visit with provider within last 12 months This request has changes from the previous prescription. documented in this encounter [facility] 06-28-2021 Miscellaneous Notes rx pended Spoke to Renetta, Pt's daughter in law, and she is requested a refill for omeprazole (PRILOSEC) 20 mg capsule be sent to [facility] pharmacy. Also rescheduled Pt's appt from 07/01/2021 to 07/05/2021 documented in this encounter [facility] 04-01-2021 History of Presen t illness Narrative Images from the original note were not included. [facility] [place] Othello DO Dennis [address] [place] [address] Date of Evaluation: 04/01/2021 Patient Name: Albina Brown : 1940 Chief Complaint: Patient presents with: Medication Follow-up Increased confusion Increased memory loss Nursing Intake: There are no exam notes on file for this visit. Subjective Ms. Brown is a 80 year old female who presents with the following complaint(s): Patient presents with Daughter. Patient daughter feels that memory is worsening. Patient stressed taking care of and his memory loss. Review of Systems Constitutional: Negative for fatigue and unexpected weight change. HENT: Negative for nosebleeds. Eyes: Negative for redness and visual disturbance. Respiratory: Negative for apnea, cough and shortness of breath. Cardiovascular: Negative for chest pain, palpitations and leg swelling. Genitourinary: Negative for hematuria. Neurological: Negative for dizziness, weakness, light-headedness, numbness and headaches. Hematological: Does not bruise/bleed easily. Psychiatric/Behavioral: The patient is not nervous/anxious. History reviewed. No pertinent past medical history. PAST SURGICAL HISTORY Procedure Laterality Date BREAST SURGERY 2019 Breast cancer- left FAMILY HISTORY Problem Relation Age of Onset Hypertension Mother Cancer Father Cancer Brother Social History Tobacco Use Smoking status: Former Smoker Types: Cigarettes Smokeless tobacco: Never Used Vaping Use Vaping Use: Never used Substance Use Topics Alcohol use: Not Currently Drug use: Never Current Medications multivitamin (MULTIPLE VITAMINS ORAL) Take 1 tablet by mouth once daily. (CENTRUM SILVER ADULT 50+ PO) ascorbic acid, vitamin C, (VITAMIN C) 500 mg tablet Take 500 mg by mouth. aspirin 81 mg chewable tablet Take 81 mg by mouth. Cholecalciferol, Vitamin D3, 25 mcg (1,000 unit) cap Take 1 capsule by mouth. citalopram (CELEXA) 20 mg tablet Take 20 mg by mouth once daily. meclizine (ANTIVERT) 25 mg tab 25 mg three times daily as needed. 1/2 tablet as needed omeprazole (PRILOSEC) 20 mg capsule Take 20 mg by mouth once daily. simvastatin (ZOCOR) 20 mg tablet Take 20 mg by mouth daily at bedtime. tamoxifen (NOLVADEX) 20 mg tablet Take 20 mg by mouth once daily. ZINC ACETATE ORAL Take 50 mg by mouth once daily. vitamin B complex (B COMPLEX-VITAMIN B12 ORAL) Take 1,000 mg by mouth once daily. iron bisgly,ps-FA-B-C#12-succ 65 mg-65 mg -1,000 mcg (24) tab Take by mouth. citalopram (CELEXA) 40 mg tablet Take 1 tablet by mouth once daily. I have confirmed and edited as necessary the past medical, family and social histories, HPI, and ROS obtained by others. Objective BP 130/86 Pulse 64 Temp 98.3 Wt 152 lb (68.9kg) SpO2 98% Physical Exam Vitals and nursing note reviewed. Constitutional: General: She is not in acute distress. Appearance: Normal appearance. She is well-developed. She is not ill-appearing. HENT: Head: Normocephalic. Right Ear: Tympanic membrane, ear canal and external ear normal. There is no impacted cerumen. Left Ear: Tympanic membrane, ear canal and external ear normal. There is no impacted cerumen. Nose: Nose normal. Mouth/Throat: Mouth: Mucous membranes are moist. Pharynx: Oropharynx is clear. Uvula midline. No oropharyngeal exudate or posterior oropharyngeal erythema. Eyes: General: Lids are normal. Vision grossly intact. Gaze aligned appropriately. No scleral icterus. Right eye: No discharge. Left eye: No discharge. Extraocular Movements: Extraocular movements intact. Conjunctiva/sclera: Conjunctivae normal. Pupils: Pupils are equal, round, and reactive to light. Neck: Thyroid: No thyroid mass, thyromegaly or thyroid tenderness. Vascular: No carotid bruit. Trachea: Trachea and phonation normal. Cardiovascular: Rate and Rhythm: Normal rate and regular rhythm. Pulses: Normal pulses. Heart sounds: Normal heart sounds. Pulmonary: Effort: Pulmonary effort is normal. Breath sounds: Normal breath sounds. Abdominal: General: Abdomen is flat. Bowel sounds are normal. Palpations: Abdomen is soft. Musculoskeletal: General: Normal range of motion. Right shoulder: Normal. Left shoulder: Normal. Cervical back: Normal, full passive range of motion without pain and neck supple. No tenderness. No spinous process tenderness. Thoracic back: Normal. Lumbar back: Normal. Right knee: Normal. Left knee: Normal. Right lower leg: No edema. Left lower leg: No edema. Lymphadenopathy: Cervical: No cervical adenopathy. Skin: General: Skin is warm and dry. Neurological: General: No focal deficit present. Mental Status: She is alert and oriented to person, place, and time. Mental status is at baseline. Cranial Nerves: Cranial nerves are intact. Sensory: Sensation is intact. Motor: Motor function is intact. Psychiatric: Attention and Perception: Attention and perception normal. Mood and Affect: Mood normal. Speech: Speech normal. Behavior: Behavior normal. Thought Content: Thought content normal. Judgment: Judgment normal. Data Reviewed: No new labs ASSESSMENT/PLAN: 1. Memory loss - ICD9: 780.93, ICD10: R41.3 - Patient scored a 24/30 on the Mini mental today - Will continue to monitor Return in about 3 months (around 06/30/2021). Madyson Collins DO Attestation: Scribe Statement: I Christine Strong am scribing for, and in the presence of, Madyson Collins DO April 01, 2021 4:44 PM. Physician Statement: I, Madyson Collins DO, personally performed the services described in the documentation, as scribed by Christine Bhatti in my presence, and it is both accurate and complete April 01, 2021 4:50 PM. documented in this encounter [facility] 02-21-2021 Miscellaneous Notes This encounter was opened in error. @[email or web address]@ documented in this encounter [facility] 11-29-2020 History of Presen t illness Narrative Images from the original note were not included. [facility] Jaimee Collins DO [address] [place] [address] Date of Evaluation: 11/29/2020 Patient Name: Albina Brown : 1940 Chief Complaint: New Patient (establish care ) and Other (see depression screening ) Nursing Intake: There are no exam notes on file for this visit. Subjective Ms. Brown is a 80 year old female who presents with the following complaint(s): The history is provided by the patient. 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 Depression Pertinent negatives include no weakness. This is a chronic problem. The current episode started more than 1 month ago. The problem has been gradually worsening since onset. Treatments tried: Celexa. The treatment provided mild relief. GERD She complains of heartburn. She reports no abdominal pain, no chest pain or no coughing. This is a chronic problem. The current episode started more than 1 year ago. Pertinent negatives include no weight loss. She has tried a PPI for the symptoms. The treatment provided significant relief. Hypercholesterolemia This is a chronic problem. The current episode started more than 1 year ago. Pertinent negatives include no chest pain, focal weakness, myalgias or shortness of breath. There are no compliance problems. Review of Systems Constitutional: Negative for malaise/fatigue and weight loss. HENT: Negative for nosebleeds. Eyes: Negative for blurred vision and double vision. Respiratory: Negative for cough and shortness of breath. Cardiovascular: Negative for chest pain, palpitations, orthopnea, claudication, leg swelling and PND. Gastrointestinal: Positive for heartburn. Negative for abdominal pain. Genitourinary: Negative for hematuria. Musculoskeletal: Negative for joint pain and myalgias. Skin: Negative. Neurological: Negative for dizziness, tingling, sensory change, focal weakness, weakness and headaches. Endo/Heme/Allergies: Does not bruise/bleed easily. Psychiatric/Behavioral: Negative for depression. The patient is not nervous/anxious and does not have insomnia. History reviewed. No pertinent past medical history. PAST SURGICAL HISTORY Procedure Laterality Date BREAST SURGERY HX 2019 Breast cancer- left FAMILY HISTORY Problem Relation Age of Onset Hypertension Mother Cancer Father Cancer Brother Social History Tobacco Use Smoking status: Former Smoker Types: Cigarettes Smokeless tobacco: Never Used Vaping Use Vaping Use: Never used Substance Use Topics Alcohol use: Not Currently Drug use: Never Current Meds multivitamin (MULTIPLE VITAMINS ORAL) Take 1 tablet by mouth once daily. (CENTRUM SILVER ADULT 50+ PO) ascorbic acid, vitamin C, (VITAMIN C) 500 mg tablet Take 500 mg by mouth. aspirin 81 mg chewable tablet Take 81 mg by mouth. Cholecalciferol, Vitamin D3, 25 mcg (1,000 unit) cap Take 1 capsule by mouth. citalopram (CELEXA) 20 mg tablet Take 20 mg by mouth once daily. meclizine (ANTIVERT) 25 mg tab 25 mg three times daily as needed. 1/2 tablet as needed omeprazole (PRILOSEC) 20 mg capsule Take 20 mg by mouth once daily. simvastatin (ZOCOR) 20 mg tablet Take 20 mg by mouth daily at bedtime. tamoxifen (NOLVADEX) 20 mg tablet Take 20 mg by mouth once daily. ZINC ACETATE ORAL Take 50 mg by mouth once daily. vitamin B complex (B COMPLEX-VITAMIN B12 ORAL) Take 1,000 mg by mouth once daily. iron bisgly,ps-FA-B-C#12-succ 65 mg-65 mg -1,000 mcg (24) tab Take by mouth. citalopram (CELEXA) 40 mg tablet Take 1 tablet by mouth once daily. I have confirmed and edited as necessary the past medical, family and social histories, HPI, and ROS obtained by others. Objective BP 122/78 (BP Site: Right Arm, BP Position: Sitting) Pulse 73 Temp 36.9 C (98.5 F) Ht 5' 3" (1.6 m) Wt 155 lb 12.8 oz (70.7 kg) SpO2 97% BMI 27.60 kg/m Physical Exam Vitals and nursing note reviewed. Constitutional: General: She is not in acute distress. Appearance: Normal appearance. She is well-developed. She is not ill-appearing. HENT: Head: Normocephalic. Right Ear: Tympanic membrane, ear canal and external ear normal. There is no impacted cerumen. Left Ear: Tympanic membrane, ear canal and external ear normal. There is no impacted cerumen. Nose: Nose normal. Mouth/Throat: Mouth: Mucous membranes are moist. Pharynx: Oropharynx is clear. Uvula midline. No oropharyngeal exudate or posterior oropharyngeal erythema. Eyes: General: Lids are normal. Vision grossly intact. Gaze aligned appropriately. No scleral icterus. Right eye: No discharge. Left eye: No discharge. Extraocular Movements: Extraocular movements intact. Conjunctiva/sclera: Conjunctivae normal. Pupils: Pupils are equal, round, and reactive to light. Neck: Thyroid: No thyroid mass, thyromegaly or thyroid tenderness. Vascular: No carotid bruit. Trachea: Trachea and phonation normal. Cardiovascular: Rate and Rhythm: Normal rate and regular rhythm. Pulses: Normal pulses. Heart sounds: Normal heart sounds. Pulmonary: Effort: Pulmonary effort is normal. Breath sounds: Normal breath sounds. Abdominal: General: Abdomen is flat. Bowel sounds are normal. Palpations: Abdomen is soft. Musculoskeletal: General: Normal range of motion. Right shoulder: Normal. Left shoulder: Normal. Cervical back: Normal, full passive range of motion without pain and neck supple. No tenderness. No spinous process tenderness. Thoracic back: Normal. Lumbar back: Normal. Right knee: Normal. Left knee: Normal. Right lower leg: No edema. Left lower leg: No edema. Lymphadenopathy: Cervical: No cervical adenopathy. Skin: General: Skin is warm and dry. Neurological: General: No focal deficit present. Mental Status: She is alert and oriented to person, place, and time. Mental status is at baseline. Cranial Nerves: Cranial nerves are intact. Sensory: Sensation is intact. Motor: Motor function is intact. Psychiatric: Attention and Perception: Attention and perception normal. Mood and Affect: Mood normal. Speech: Speech normal. Behavior: Behavior normal. Thought Content: Thought content normal. Judgment: Judgment normal. Data Reviewed: No new labs ASSESSMENT/PLAN: 1. Anxiety with depression - ICD9: 300.4, ICD10: F41.8 (primary diagnosis) - Increase Celexa to 40 mg 2. Hyperlipidemia, mixed - ICD9: 272.2, ICD10: E78.2 - CBC + DIFF - COMP METABOLIC PANEL - LIPID PANEL BASIC 3. GERD without esophagitis - ICD9: 530.81, ICD10: K21.9 4. Nausea - ICD9: 787.02, ICD10: R11.0 - Advised to take medications with food. 5. Screening for thyroid disorder - ICD9: V77.0, ICD10: Z13.29 - TSH BLD Return in about 4 months (around 03/31/2021) for medication follow up. Madyson Collins DO Attestation: Scribe Statement: I Christine Strong am scribing for, and in the presence of, Madyson Collins DO November 29, 2020 3:47 PM. Physician Statement: I, Madyson Collins DO, personally performed the services described in the documentation, as scribed by Christine Bhatti in my presence, and it is both accurate and complete November 29, 2020 3:58 PM. documented in this encounter [facility] Evaluation note Diagnosis Anxiety with depression- Primary Hyperlipidemia, mixed Mixed hyperlipidemia GERD without esophagitis Esophageal reflux Nausea Nausea alone Screening for thyroid disorder [facility] Diagnosis OPENED IN ERROR- Primary To allow closing an encounter opened in error (used in SmartSet) [facility] Diagnosis Memory loss- Primary [facility] Diagnosis Malignant neoplasm of lower-outer quadrant of left breast of female, estrogen receptor positive (HCC) Abnormal mammogram Abnormal mammogram, unspecified documented in this encounter [employer] Phone: Evaluation note* Diagnosis Other hyperlipidemia- Primary Screening for thyroid disorder [facility] Diagnosis Forgetfulness- Primary Other general symptoms Dementia without behavioral disturbance, unspecified dementia type Hyperlipidemia, mixed Mixed hyperlipidemia Abnormal mammogram Abnormal mammogram, unspecified [facility] Diagnosis Cellulitis of right arm- Primary Cellulitis and abscess of upper arm and forearm Cat scratch Other and unspecified superficial injury of other, multiple, and unspecified sites, without mention of infection [facility] Diagnosis Mixed hyperlipidemia- Primary Dementia without behavioral disturbance (HCC) Dementia, unspecified, without behavioral disturbance Anxiety with depression BMI 28.0-28.9,adult Body Mass Index 28.0-28.9, adult [facility] Diagnosis Age-related cognitive decline- Primary Memory loss [facility] Diagnosis Malignant neoplasm of lower-outer quadrant of left breast of female, estrogen receptor positive (HCC) documented in this encounter [facility] note* Diagnosis Anxiety with depression documented in this encounter [facility] note* Diagnosis Age-related cognitive decline- Primary Memory loss Hyperlipidemia, mixed Mixed hyperlipidemia Bilateral leg edema Edema Anxiety with depression Varicose veins of bilateral lower extremities with other complications Female stress incontinence Overweight with body mass index (BMI) of 29 to 29.9 in adult Screening for thyroid disorder documented in this encounter [facility] note* Diagnosis Dementia (HCC)- Primary Other persistent mental disorders due to conditions classified elsewhere Advancing dementia (HCC) At risk for delirium Anxiety Anxiety state, unspecified Altered mental status documented in this encounter [facility] note* Diagnosis Failure to thrive in adult- Primary Adult failure to thrive Failure to thrive in adult Adult failure to thrive At risk for delirium Dementia (HCC) Other persistent mental disorders due to conditions classified elsewhere Depression Depressive disorder, not elsewhere classified At risk for malnutrition Debility Unspecified debility documented in this encounter [facility] note* Diagnosis GERD without esophagitis- Primary Esophageal reflux Hyperlipidemia, mixed Mixed hyperlipidemia Dementia without behavioral disturbance (HCC) Dementia, unspecified, without behavioral disturbance Other depression Hearing loss of left ear, unspecified hearing loss type SunDown syndrome Reactive confusion Obesity, Class I, BMI 30-34.9 Obesity, unspecified documented in this encounter [facility] note* Diagnosis Generalized edema Edema documented in this encounter [facility] note* Diagnosis Hallucinations- Primary Systolic murmur Undiagnosed cardiac murmurs Dementia with behavioral disturbance (HCC) Dementia, unspecified, with behavioral disturbance SunDown syndrome Reactive confusion Generalized edema Edema At risk for falling Personal history of fall Class 1 obesity with body mass index (BMI) of 31.0 to 31.9 in adult, unspecified obesity type, unspecified whether serious comorbidity present documented in this encounter [facility] note* Diagnosis Dementia with behavioral disturbance (HCC)- Primary Dementia, unspecified, with behavioral disturbance Recurrent falls Personal history of fall Hallucinations SunDown syndrome Reactive confusion Class 1 obesity with body mass index (BMI) of 31.0 to 31.9 in adult, unspecified obesity type, unspecified whether serious comorbidity present [facility] Diagnosis Malignant neoplasm of lower-outer quadrant of left breast of female, estrogen receptor positive (HCC) documented in this encounter [facility] note* Diagnosis Anxiety with depression [facility] Diagnosis Dementia with behavioral disturbance (HCC) Dementia, unspecified, with behavioral disturbance SunDown syndrome Reactive confusion [facility] Diagnosis Female stress incontinence [facility] Diagnosis Head injury, initial encounter- Primary Fall, initial encounter Uses walker Moderate dementia without behavioral disturbance, psychotic disturbance, mood disturbance, or anxiety, unspecified dementia type (HCC) Hx of assisted use of blood thinners Encounter for long-term (current) use of anticoagulants [facility]* Diagnosis Malignant neoplasm of lower-outer quadrant of left breast of female, estrogen receptor positive (HCC) [facility] noteNo assessment information availableWProMedica [facility] Work Phone: Reason for referral (narrative)* Diagnostic Procedure Only (Urgent) - Closed Specialty Diagnoses / Procedures Referred By Contac t Referred To Contact US IMAGING Diagnoses Generalized edema Procedures US DVT LOWER RIGHT DUP-SCAN XTR VEINS UNILATERAL/LIMITED STUDY Madyson Collins, [place] [address] [facility] Referral ID Status Reason Start Date Expiration Date V isits Requested Visits Authorized [id number] Closed Auto-Generate d Referral 06/16/2023 07/15/2024 1 1 [facility] for referral (narrative)* Diagnostic Procedure Only (Urgent) - Closed Specialty Diagnoses / Procedures Referred By Contac t Referred To Contact US IMAGING Diagnoses Generalized edema Procedures US DVT LOWER RIGHT DUP-SCAN XTR VEINS UNILATERAL/LIMITED STUDY Madyson Collins, DO [address] [place] [address] [place] [address] Referral ID Status Reason Start Date Expiration Date V isits Requested Visits Authorized [id number] Closed Auto-Generate d Referral 06/16/2023 07/15/2024 1 [facility]No reason for referral information availableWPro[facility] Work Phone: Reason for visit Narrative* Diagnostic Procedure Only (Urgent) - Closed Specialty Diagnoses / Procedures Referred By Som rosa Referred To Contact US IMAGING Diagnoses Generalized edema Procedures US DVT LOWER RIGHT DUP-SCAN XTR VEINS UNILATERAL/LIMITED STUDY Madyson Collins [address] [place] [address] [place] [address] Referral ID Status Reason Start Date Expiration Date V isits Requested Visits Authorized [id number] Closed Auto-Generate d Referral 06/16/2023 07/15/2024 1 1 [facility] Advance Directives No Advanced Directives Records FoundDocuments on File Type Date Recorded 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 Advance Directives and Living Will Power of Tongue Carrier Latest Code Status on File Code Status Date Activated Date Inactivated Comments Full Code 11/21/2019 7:27 AM Documents on File Type Date Recorded 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 ACP-Advance Directive ACP-Power of Tongue Carrier Latest Code Status on File Code Status Date Activated Date Inactivated Comments Full Code 11/21/2019 7:27 AM 11/23/2019 3:12 PM Documents on File Type Date Recorded 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 ACP-Advance Directive ACP-Power of Tongue Carrier Latest Code Status on File Code Status Date Activated Date Inactivated Comments Full Code 11/21/2019 7:27 AM 11/23/2019 3:12 PM Latest Code Status on File Code Status Date Activated Date Inactivated Comments DNR-CCA 02/04/2023 12:48 PM 02/10/2023 9:05 PM Question Answer Comments ICU transfer: Yes Intubation: Yes Code Status History Code Status Date Activated Date Inactivated Comments Full Code 02/04/2023 6:29 AM 02/04/2023 12:48 PM Latest Code Status on File Code Status Date Activated Date Inactivated Comments Full Code 02/27/2023 11:42 PM 03/06/2023 3:59 PM Code Status History Code Status Date Activated Date Inactivated Comments DNR-CCA 02/04/2023 12:48 PM 02/10/2023 9:05 PM Question Answer Comments ICU transfer: Yes Intubation: Yes Full Code 02/04/2023 6:29 AM 02/04/2023 12:48 PM Documents on File Type Date Recorded 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 anatyecenia Advance Directives and Samri dunne Will 03/09/2023 9:36 AM Date Activated Date Inactivated Comments 02/27/2023 11:42 PM 03/06/2023 3:59 PM Date Activated Date Inactivated Comments 02/04/2023 12:48 PM 02/10/2023 9:05 PM Question Answer Comments ICU transfer: Yes Intubation: Yes Date Activated Date Inactivated Comments 02/04/2023 6:29 AM 02/04/2023 12:48 PM Discharge Instructions * Instructions* Mary Steel, RN - 11/18/2019 PLEASE BE AWARE THAT VISITORS UNDER THE AGE OF 12 AND FOOD/DRINKS ARE NO LONGER PERMITTED IN THE SAME DAY SURGERY DEPARTMENT. IF YOU USE A CPAP MACHINE OR RESCUE INHALER AT HOME PLEASE BRING THESE ITEMS WITH YOU THE DAY OF SURGERY. MEDICATION INSTRUCTIONS PRIOR TO SURGERY PLEASE BRING PROVIDED LIST BACK WITH YOU THE DAY OF SURGERY WITH DATE/TIME LAST DOSE OF MEDICATIONSTAKEN. Hold all vitamins and ibuprofen 24 hours prior to surgery. Last dose would be on thursday During pre-admission testing appointment, patient instructed on the following To arrive 2 hours prior to scheduled surgery Upon arrival, stop in registration past the main entrance and provide them with a photo id and a medical card if they have one After registration, come to the same day surgery department, stopping at the main desk They need to have made arrangements for a ride home following surgery and a phone number will need to be provided before going back to the operating room. If public transportation is being used, pt made aware that they need to have a responsible adult accompany them. They need to make arrangements for someone to stay with them after they get home from surgery. Leave all jewelry, contacts and valuables at home Wear loose comfortable clothing to go home in Which medications need to be held and taken prior to surgery Bring in the medication list provided for them and write in the date/time last dose was taken No food (including candy, gum and mints) the day of surgery They may have clear liquids ( water, black coffee/no liquid or powder creamer, clear tea, clear fruit juices/no pulp and carbonated beverages) up until 2 hours prior to surgery Do not drink alcohol, use recreational drugs or smoke/use nicotine products 24 hours prior to surgery. Encouraged to write down any questions they may have for the surgeon, anesthesiologist or any member of the surgical team, and to bring list of questions in with them During the pre-admission testing appointment, this nurse reviewed and provided patient with The taking care of yourself after surgery paper ERAS paper Smoking Cessation Assistance paper (if a positive smoker) Pamphlets for Billing information for anesthesia patients, Prescription Opioids and Pharmacy care Preparing for your surgical procedure pamphlet After visit Summary with medication list and medication instructions Prior to end of PAT appointment, pt acknowledged understanding of information and instructions provided in preparation of upcoming surgery. documented in this encounter Reason for Referral Status Reason Specialty Diagnoses / Procedures Referre d By Contact Referred To Contact Open Radiology Diagnoses Malignant neoplasm of lower-outer quadrant of left breast of female, estrogen receptor positive (HCC) USP (current) use of aromatase inhibitors Procedures DEXA Bone Density Axial Skeleton Brian Carlson MD [address] [facility], [address] [place] [address] Specialty Diagnoses / Procedures Referred By Som rosa Referred To Contact Radiology Diagnoses Malignant neoplasm of lower-outer quadrant of left breast of female, estrogen receptor positive (HCC) Abnormal mammogram Procedures US Breast Limited Right Brian Carlson MD [address] [facility], [address] [place] [address] Referral ID Status Reason Start Date Expiration Date Visits Re quested Visits Authorized [id number] Open 12/03/2021 12/03/2022 1 1 Specialty Diagnoses / Procedures Referred By Som rosa Referred To Contact Occupational Therapy Diagnoses Age-related cognitive decline Procedures CONSULT TO SET RIDER Madyson Collins DO [address] [place] [address] Referral ID Status Reason Start Date Expiration Date Visits Requested Visits Authorized [id number] Ref Not Required PCP Requested Referral 08/15/2022 08/14/2023 99 99 Specialty Diagnoses / Procedures Referred By Som rosa Referred To Contact [facility] Diagnoses Age-related cognitive decline Procedures CONSULT TO PHYSICAL THERAPY PHYSICAL THERAPY EVALUATION HIGH COMPLEX 45 MINS Madyson Collins DO [address] [place] [address] [facility] [address] [address] Referral ID Status Reason Start Date Expiration Date Visits Requested Visits Authorized [id number] Authorized PCP Requested Referral Auto-Generate d Referral 08/15/2022 08/14/2023 99 99 Specialty Diagnoses / Procedures Referred By Contac t Referred To Contact Diagnoses Age-related cognitive decline Madyson Collins, DO [address] [place] [address] Referral ID Status Reason Start Date Expiration Date Visits Re quested Visits Authorized [id number] Closed 1 1 Specialty Diagnoses / Procedures Referred By Contac t Referred To Contact [facility] Diagnoses Recurrent falls Procedures CONSULT TO PHYSICAL THERAPY PHYSICAL THERAPY EVALUATION HIGH COMPLEX 45 MINS Madyson Collins, [address] [place] [address] [facility] [address] [address] Referral ID Status Reason Start Date Expiration Date Visits Requested Visits Authorized [id number] Pending Review Auto-Generat ed Referral 07/28/2023 07/27/2024 1 1 Assessments Diagnosis Malignant neoplasm of lower-outer quadrant of left breast of female, estrogen receptor positive (HCC) USP (current) use of aromatase inhibitors Summary Purpose Family History No Family History Records FoundNo Family History Records FoundNo Family History Records FoundNo Family History Records FoundNo Family History Records FoundNo Family History Records Found Chief Complaint and Reason for Visit Chief Complaint Admit Date [facility] WORK August 01, 2024 5 :00am Additional Source Comments Source Comments (unrecognize d section and content) In the event this informatio n is protected by the Federal Confidentiality of Alcohol and Drug Abuse Patient Records regulations: The Federal rules restrict any use of the information to criminally investigate or prosecute any alcohol or drug abuse patient.[facility] the event this information is protected by the Federal Confidentiality of Alcohol and Drug Abuse Patient Records regulations: The Federal rules restrict any use of the information to criminally investigate or prosecute any alcohol or drug abuse patient.[facility] the event this information is protected by the Federal Confidentiality of Alcohol and Drug Abuse Patient Records regulations: The Federal rules restrict any use of the information to criminally investigate or prosecute any alcohol or drug abuse patient.[facility] the event this information is protected by the Federal Confidentiality of Alcohol and Drug Abuse Patient Records regulations: The Federal rules restrict any use of the information to criminally investigate or prosecute any alcohol or drug abuse patient.[facility] the event this information is protected by the Federal Confidentiality of Alcohol and Drug Abuse Patient Records regulations: The Federal rules restrict any use of the information to criminally investigate or prosecute any alcohol or drug abuse patient.[facility] the event this information is protected by the Federal Confidentiality of Alcohol and Drug Abuse Patient Records regulations: The Federal rules restrict any use of the information to criminally investigate or prosecute any alcohol or drug abuse patient.[facility] the event this information is protected by the Federal Confidentiality of Alcohol and Drug Abuse Patient Records regulations: The Federal rules restrict any use of the information to criminally investigate or prosecute any alcohol or drug abuse patient.[facility] the event this information is protected by the Federal Confidentiality of Alcohol and Drug Abuse Patient Records regulations: The Federal rules restrict any use of the information to criminally investigate or prosecute any alcohol or drug abuse patient.[facility] the event this information is protected by the Federal Confidentiality of Alcohol and Drug Abuse Patient Records regulations: The Federal rules restrict any use of the information to criminally investigate or prosecute any alcohol or drug abuse patient.[facility] the event this information is protected by the Federal Confidentiality of Alcohol and Drug Abuse Patient Records regulations: The Federal rules restrict any use of the information to criminally investigate or prosecute any alcohol or drug abuse patient.[facility] the event this information is protected by the Federal Confidentiality of Alcohol and Drug Abuse Patient Records regulations: The Federal rules restrict any use of the information to criminally investigate or prosecute any alcohol or drug abuse patient.[facility] the event this information is protected by the Federal Confidentiality of Alcohol and Drug Abuse Patient Records regulations: The Federal rules restrict any use of the information to criminally investigate or prosecute any alcohol or drug abuse patient.[facility] the event this information is protected by the Federal Confidentiality of Alcohol and Drug Abuse Patient Records regulations: The Federal rules restrict any use of the information to criminally investigate or prosecute any alcohol or drug abuse patient.[facility] the event this information is protected by the Federal Confidentiality of Alcohol and Drug Abuse Patient Records regulations: The Federal rules restrict any use of the information to criminally investigate or prosecute any alcohol or drug abuse patient.[facility] the event this information is protected by the Federal Confidentiality of Alcohol and Drug Abuse Patient Records regulations: The Federal rules restrict any use of the information to criminally investigate or prosecute any alcohol or drug abuse patient.[facility] the event this information is protected by the Federal Confidentiality of Alcohol and Drug Abuse Patient Records regulations: The Federal rules restrict any use of the information to criminally investigate or prosecute any alcohol or drug abuse patient.[facility] the event this information is protected by the Federal Confidentiality of Alcohol and Drug Abuse Patient Records regulations: The Federal rules restrict any use of the information to criminally investigate or prosecute any alcohol or drug abuse patient.[facility] the event this information is protected by the Federal Confidentiality of Alcohol and Drug Abuse Patient Records regulations: The Federal rules restrict any use of the information to criminally investigate or prosecute any alcohol or drug abuse patient.[facility] the event this information is protected by the Federal Confidentiality of Alcohol and Drug Abuse Patient Records regulations: The Federal rules restrict any use of the information to criminally investigate or prosecute any alcohol or drug abuse patient.[facility] the event this information is protected by the Federal Confidentiality of Alcohol and Drug Abuse Patient Records regulations: The Federal rules restrict any use of the information to criminally investigate or prosecute any alcohol or drug abuse patient.[facility] the event this information is protected by the Federal Confidentiality of Alcohol and Drug Abuse Patient Records regulations: The Federal rules restrict any use of the information to criminally investigate or prosecute any alcohol or drug abuse patient.[facility] the event this information is protected by the Federal Confidentiality of Alcohol and Drug Abuse Patient Records regulations: The Federal rules restrict any use of the information to criminally investigate or prosecute any alcohol or drug abuse patient.[facility] the event this information is protected by the Federal Confidentiality of Alcohol and Drug Abuse Patient Records regulations: The Federal rules restrict any use of the information to criminally investigate or prosecute any alcohol or drug abuse patient.[facility] the event this information is protected by the Federal Confidentiality of Alcohol and Drug Abuse Patient Records regulations: The Federal rules restrict any use of the information to criminally investigate or prosecute any alcohol or drug abuse patient.[facility] the event this information is protected by the Federal Confidentiality of Alcohol and Drug Abuse Patient Records regulations: The Federal rules restrict any use of the information to criminally investigate or prosecute any alcohol or drug abuse patient.[facility] the event this information is protected by the Federal Confidentiality of Alcohol and Drug Abuse Patient Records regulations: The Federal rules restrict any use of the information to criminally investigate or prosecute any alcohol or drug abuse patient.[facility] the event this information is protected by the Federal Confidentiality of Alcohol and Drug Abuse Patient Records regulations: The Federal rules restrict any use of the information to criminally investigate or prosecute any alcohol or drug abuse patient.[facility] the event this information is protected by the Federal Confidentiality of Alcohol and Drug Abuse Patient Records regulations: The Federal rules restrict any use of the information to criminally investigate or prosecute any alcohol or drug abuse patient.[facility]In the event this information is protected by the Federal Confidentiality of Alcohol and Drug Abuse Patient Records regulations: The Federal rules restrict any use of the information to criminally investigate or prosecute any alcohol or drug abuse patient.[facility]In the event this information is protected by the Federal Confidentiality of Alcohol and Drug Abuse Patient Records regulations: The Federal rules restrict any use of the information to criminally investigate or prosecute any alcohol or drug abuse patient.[facility]In the event this information is protected by the Federal Confidentiality of Alcohol and Drug Abuse Patient Records regulations: The Federal rules restrict any use of the information to criminally investigate or prosecute any alcohol or drug abuse patient.[facility] Reason for Visit (unrecogniz ed section and content) Reason Comments New Patient establish care Other see depression scree dheeraj Status Reason Specialty Diagnoses / Procedures Referred By Contact Referred To Contact Authorized Patient Cleared - Qualified 100% FAS Family Practice / FAMILY MEDICINE Diagnoses New patient physical/Stomach pain Procedures NEW PHYSICAL Self Madyson Collins DO [address] [id number] Reason Onset Date Comments Opened In Error 02/21/2021 Reason Comments Medication Follow-up Increased confusion Increased memory loss Specialty Diagnoses / Procedures Referred By Contac t Referred To Contact Family Practice / FAMILY MEDICINE Diagnoses New patient physical/Stomach pain Procedures NEW PHYSICAL Self Madyson Collins DO [address] [place] [address] Referral ID Status Reason Start Date Expiration Date V isits Requested Visits Authorized [id number] Closed Patient Cleared - Qualified 100% FAS 11/22/2020 02/20/2021 99 99 Reason Comments Refill Request Reason Comments Medication Problem Reason Comments Orders Reason Comments Appointment 01/03/2022 Reason Comments Follow Up Reason Comments Arm Pain Has scratches on arm , started yesterday Reason Comments Patient Question Reason Comments Anxiety Hyperlipidemia Reason Comments Follow-up Reason Comments Memory Loss Leg Edema Mostly right, some l eft Incontinence urinary Reason Comments Dementia Specialty Diagnoses / Procedures Referred By Contac t Referred To Contact Diagnoses Advancing dementia (HCC) Procedures . Philippe Farmer MD [address] [facility] [address] [place] [address] [facility] [address] [place] [address] Referral ID Status Reason Start Date Expiration Date Visits Re quested Visits Authorized [id number] 1 1 Reason Comments Patient Update Reason Comments Nausea Altered Mental Status Lethargy Pt brought in by [facility] from home for increased lethargy, per family pt has been sleeping for 20 plus hours a day. Pt only complains of nausea with no vomiting and a headache. 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 Specialty Diagnoses / Procedures Referred By Contac t Referred To Contact Diagnoses Failure to thrive in adult Procedures . Angelito Matson MD [address] [place] [address] [facility] [address] [place] [address] Referral ID Status Reason Start Date Expiration Date Visits Re quested Visits Authorized [id number] 1 1 Reason Comments Hospital Follow Up [facility] Fall Answered yes to fall s in last year. Having PT in the home 3 x a week recently lost in January Referral Request Used to have a heari ng aid for left ear and quit working. Reason Comments increase in confusion and aggitation Zohra [id number] states patient is Packing her bags and thinks she lives somewhere else. Fall Answered yes to fall question on rooming intake Reason Comments Consult Consult to physical therapy, recurrent falls confirm [id number] Reason Comments Fall Has had 4 falls in t he last 2 1/2 months. Firs Back Pain Low to middle back p ain since first fall. Balance Reason Onset Date Comments Population Health Navigation Outreach 10/02/2023 [place] Attributed Member- Needs 2023 Medicare Wellness Appt Scheduled Reason Comments Fall Head Injury Hematoma s/p fall to day Reason Onset Date Comments Population Health Navigation Outreach 01/04/2024 Medication Adherence Reason Onset Date Comments Cancelled Appointment 04/25/2022 Care Teams (unrecognized sec tion and content) Crm Dynamics Developer Relationship Specialty Start Date End Date Dennis Othellomilena Giron [address] [address] PCP - General Family Practice 11/29/20 Crm Dynamics Developer Relationship Specialty Start Date End Date Dennis Madysonmilena Giron [address] [address] PCP - General Family Practice 11/29/20 Crm Dynamics Developer Relationship Specialty Start Date End Date Madyson Collins [address] [address] PCP - General Family Practice 11/29/20 Crm Dynamics Developer Relationship Specialty Start Date End Date Madyson Collins [address] [address] PCP - General Family Practice 11/29/20 Crm Dynamics Developer Relationship Specialty Start Date End Date Abdiel Beltrán [address] [place] [address], , [place] [address] PCP - General 05/28/15 Crm Dynamics Developer Relationship Specialty Start Date End Date Abdiel Beltrán [address] [place] [address], [place] [address] PCP - General 05/28/15 Crm Dynamics Developer Relationship Specialty Start Date End Date Madyson Collins, DO [address] [place] [address] PCP - General Family Practice 11/29/20 Crm Dynamics Developer Relationship Specialty Start Date End Date Madyson Collins, DO [address] [place] [address] PCP - General Family Practice 11/29/20 Crm Dynamics Developer Relationship Specialty Start Date End Date Madyson Collins, DO [address] [place] [address] PCP - General Family Practice 11/29/20 Crm Dynamics Developer Relationship Specialty Start Date End Date Madyson Collins, DO [address] [place] [address] PCP - General Family Medicine 11/29/20 Crm Dynamics Developer Relationship Specialty Start Date End Date Madyson Collins, DO [address] [place] [address] PCP - General Family Medicine 11/29/20 Crm Dynamics Developer Relationship Specialty Start Date End Date Madyson Collins, DO [address] [place] [address] PCP - General Family Medicine 11/29/20 Crm Dynamics Developer Relationship Specialty Start Date End Date Madyson Collins, DO [address] [place] [address] PCP - General Family Medicine 11/29/20 Crm Dynamics Developer Relationship Specialty Start Date End Date Madyson Collins DO [address] [place] [address] PCP - General Family Medicine 11/29/20 Crm Dynamics Developer Relationship Specialty Start Date End Date Madyson Collins DO [address] [place] [address] PCP - General 01/02/22 Brian Carlson MD [address] [place] [address], [address] [place] [address] Consulting Physician Hematology and Oncology 02/24/22 Crm Dynamics Developer Relationship Specialty Start Date End Date Madyson Collins DO [address] [place] [address] PCP - General Family Medicine 11/29/20 Crm Dynamics Developer Relationship Specialty Start Date End Date Madyson Collins DO [address] [place] [address] PCP - General Family Medicine 11/29/20 [employer] Relationship Specialty Start Date End Date Madyson Collins DO [address] [place] [id number] PCP - General 01/02/22 Brian Carlson MD [address] [place] [address], [address] [place] [address] Consulting Physician Hematology and Oncology 02/24/22 [employer] Developer Relationship Specialty Start Date End Date Madyson Collins DO [address] [place] [id number] PCP - General Family Medicine 11/29/20 [employer] Developer Relationship Specialty Start Date End Date Madyson Collins DO [address] [place] [address] PCP - General 01/02/22 Brian Carlson MD [address] [place] [address], [address] [place] [address] Consulting Physician Hematology and Oncology 02/24/22 [employer] Developer Relationship Specialty Start Date End Date Madyson Collins DO [address] [place] [address] PCP - General Family Medicine 11/29/20 [employer] Developer Relationship Specialty Start Date End Date Madyson Collins DO [address] [place] [id number] PCP - General Family Medicine 11/29/20 [employer] Developer Relationship Specialty Start Date End Date Madyson Collins DO [address] [place] [id number] PCP - General Family Medicine 11/29/20 [employer] Developer Relationship Specialty Start Date End Date Madyson Collins DO [address] [place] [id number] PCP - General Family Medicine 11/29/20 [employer] Developer Relationship Specialty Start Date End Date Madyson Collins DO [address] [place] [address] PCP - General Family Medicine 11/29/20 [employer] Developer Relationship Specialty Start Date End Date Madyson Collins DO [address] [place] [address] PCP - General 01/02/22 Brian Carlson MD [address] [place] [address] Consulting Physician Hematology and Oncology 02/24/22 [employer] Developer Relationship Specialty Start Date End Date Madyson Collins DO [address] [place] [id number] PCP - General Family Medicine 11/29/20 [employer] Developer Relationship Specialty Start Date End Date Madyson Collins DO [address] [place] [id number] PCP - General Family Medicine 11/29/20 [employer] Developer Relationship Specialty Start Date End Date Madyson Collins DO [address] [place] [address] PCP - General Family Medicine 11/29/20 [employer] Developer Relationship Specialty Start Date End Date Madyson Collins DO [address] [place] [id number] PCP - General 01/02/22 Brian Carlson MD [address] [place] [address] Consulting Physician Hematology and Oncology 02/24/22 [employer] Developer Relationship Specialty Start Date End Date Madyson Collins DO [address] [place] [id number] PCP - General 01/02/22 Brian Carlson MD [address] [place] [address] Consulting Physician Hematology and Oncology 02/24/22 [employer] Developer Relationship Specialty Start Date End Date Madyson Collins DO [address] [place] [address] PCP - General Family Medicine 11/29/20 [employer] Developer Relationship Specialty Start Date End Date Madyson Collins [address] [phone] PCP - General 01/02/22 Brian Carlson MD [address] [place] [address], [address] [place], [place] [id number] Consulting Physician Hematology and Oncology 02/24/22 [employer] Developer Relationship Specialty Start Date End Date Madyson Collins [address] [place], [place] [id number] PCP - General 01/02/22 Brian Carlson MD [address] [place] [address], [address] [place], [place] [id number] Consulting Physician Hematology and Oncology 02/24/22 Team Status: Inactive Member Role Status Dates Ольга ENGLISH Attending Provider Active Star t: August 01, 2024 End: August 01, 2024 INFORMATION SOURCE (unrecogn ized section and content) DATE CRE[facility] DATE CREATED AUTHOR AUTHOR'S ORGANIZ ATION 02/15/2022 [facility] DATE CREATED AUTHOR AUTHOR'S ORGANIZ ATION 10/04/2023 [facility] DATE CREATED AUTHOR AUTHOR'S ORGANIZ ATION 12/21/2023 [facility] DATE CREATED AUTHOR AUTHOR'S ORGANIZ ATION 01/05/2024 [facility] DATE CREATED AUTHOR AUTHOR'S ORGANIZ ATION 12/11/2024 [facility] Scheduled Active and Recently Administ ered Medications (unrecognized section and content) Medication Order 02/08/2023 02/09/2023 02/10/2023 aspirin chewable tablet 81 mg 81 mg, Oral, Daily, First dose on Thu02/04/23 at 0925 0823 (Given - Provider: Valerio Arora RN) 0829 (Given - Provider: Valerio Arora RN) 0845 (Given - Provider: Annalise Higgins, ENIO) citalopram (CeleXA) tablet 20 mg 20 mg, Oral, Daily, First dose on Thu02/18/23 at 0900 citalopram (CeleXA) tablet 30 mg 30 mg, Oral, Daily, First dose (after last modification) on Kristal 02/05/23 at 0900, For 13 doses 0823 (Given - Provider: Valerio Arora RN) 0829 (Given - Provider: Valerio Arora RN) 0845 (Given - Provider: Annalise Higgins, ENIO) enoxaparin (Lovenox) syringe 40 mg 40 mg, SubCUTAneous, Every 24 hours scheduled (Daily), First dose on Thu02/04/23 at 0900, Indication of Use: Prophylaxis-DVT/PE, Indications: Prophylaxis of Venous Thromboembolism 0823 (Given - Provider: Valerio Arora RN) 0829 (Given - Provider: Valerio Arora RN) 0843 (Given - Provider: Annalise Higgins, ENIO) memantine (Namenda) tablet 10 mg(Linked Group 1) 10 mg, Oral, Every morning, First dose on Thu02/04/23 at 1335 0823 (Given - Provider: Valerio Arora RN) 0829 (Given - Provider: Valerio Arora RN) 0845 (Given - Provider: Annalise Higgins, ENIO) memantine (Namenda) tablet 5 mg(Linked Group 1) 5 mg, Oral, Nightly, First dose on Thu02/04/23 at 2100 8 (Given - Provider: Stephani Person LPN) 2024 (Given - Provider: Stephani Person LPN) 2100 (Canceled Entry - Provider: Automatic Discharge Provider - Comment: Automatically canceled at discontinue of medication order) tamoxifen (Nolvadex) chemo tablet 20 mg 20 mg, Oral, Daily, First dose on Thu02/04/23 at 0925, HAZARDOUS - Handle with care 0826 (Given - Provider: Valerio Maite, RN) 0831 (Given - Provider: Valeroi Arora RN) 1009 (Given - Provider: Annalise Higgins, ENIO) PRN Medication Order 02/08/2023 02/09/2023 02/10/2023 acetaminophen (Tylenol) suppository 650 mg(Linked Group 2) 650 mg, Rectal, Every 6 hours PRN, mild pain (1-3), fever, For temp greater than 100.4 F (38 C), Starting on Thu02/04/23 at 0628, Administer if oral route cannot be used. Maximum dose of acetaminophen is 4000 mg from all sources in 24 hours. acetaminophen (Tylenol) tablet 650 mg(Linked Group 2) 650 mg, Oral, Every 6 hours PRN, mild pain (1-3), fever, For temp greater than 100.4 F (38 C), Starting on Thu02/04/23 at 0628, Maximum dose of acetaminophen is 4000 mg from all sources in 24 hours. melatonin tablet 5 mg 5 mg, Oral, Nightly PRN, sleep, Starting on Thu02/04/23 at 1952 2038 (Given - Provider: Stephani Person LPN) 2024 (Given - Provider: Stephani Person LPN) ondansetron (Zofran) injection 4 mg(Linked Group 3) 4 mg, IntraVENous, Every 6 hours PRN, nausea, vomiting, Starting on Thu02/04/23 at 0628, 1st Line. Give IV if patient is unable to take orally. If inadequate response within 60 minutes, proceed to next-line agent or contact provider if no further options ordered. ondansetron ODT (Zofran-ODT) disintegrating tablet 4 mg(Linked Group 3) 4 mg, Oral, Every 8 hours PRN, nausea, vomiting, Starting on Thu02/04/23 at 0628, 1st Line. If inadequate response within 60 minutes, proceed to next-line agent or contact provider if no further options ordered. Patient should allow tablet to dissolve on tongue. Do not remove from blister pack until just before administering. polyethylene glycol (PEG) 3350 (Miralax) packet 17 g 17 g, Oral, Daily PRN, constipation, Starting on Thu02/04/23 at 0628, 1st line for treatment of constipation - give scheduled if no bowel movement in past 24 hours. Linked Groups Order Group 1: memantine (Namenda) tablet 10 mgJump to med 10 mg, Oral, Every morning, First dose on Thu02/04/23 at 1335 And memantine (Namenda) tablet 5 mgJump to med 5 mg, Oral, Nightly, First dose on Thu02/04/23 at 2100 Group 2: acetaminophen (Tylenol) tablet 650 mgJump to med 650 mg, Oral, Every 6 hours PRN, mild pain (1-3), fever, For temp greater than 100.4 F (38 C), Starting on Thu02/04/23 at 0628, Maximum dose of acetaminophen is 4000 mg from all sources in 24 hours. Or acetaminophen (Tylenol) suppository 650 mgJump to med 650 mg, Rectal, Every 6 hours PRN, mild pain (1-3), fever, For temp greater than 100.4 F (38 C), Starting on Thu02/04/23 at 0628, Administer if oral route cannot be used. Maximum dose of acetaminophen is 4000 mg from all sources in 24 hours. Group 3: ondansetron ODT (Zofran-ODT) disintegrating tablet 4 mgJump to med 4 mg, Oral, Every 8 hours PRN, nausea, vomiting, Starting on Thu02/04/23 at 0628, 1st Line. If inadequate response within 60 minutes, proceed to next-line agent or contact provider if no further options ordered. Patient should allow tablet to dissolve on tongue. Do not remove from blister pack until just before administering. Or ondansetron (Zofran) injection 4 mgJump to med 4 mg, IntraVENous, Every 6 hours PRN, nausea, vomiting, Starting on Thu02/04/23 at 0628, 1st Line. Give IV if patient is unable to take orally. If inadequate response within 60 minutes, proceed to next-line agent or contact provider if no further options ordered. Scheduled Medication Order 03/04/2023 03/05/2023 03/06/2023 aspirin chewable tablet 81 mg 81 mg, Oral, Daily, First dose on 02/28/23 at 0900 0818 (Given - Provider: Radha Pérez) 1106 (Given - Provider: Fidelina Daniels RN) 0940 (Given - Provider: Fidelina Daniels RN) citalopram (CeleXA) tablet 40 mg 40 mg, Oral, Daily, First dose (after last modification) on Thu03/03/23 at 0900 0818 (Given - Provider: Radha Pérez) 1106 (Given - Provider: Fidelina Daniels RN) 0938 (Given - Provider: Fidelina Daniels RN) enoxaparin (Lovenox) syringe 40 mg 40 mg, SubCUTAneous, Every 24 hours scheduled (Daily), First dose on Thu02/28/23 at 0900, Indication of Use: Prophylaxis-DVT/PE, Indications: Prophylaxis of Venous Thromboembolism 08 (Given - Provider: Radha Pérez) 1106 (Given - Provider: Fidelina Daniels RN) 0938 (Given - Provider: Fidelina Daniels RN) Influenza Vac A&B SA Adj quadrivalent (Fluad) vaccine 0.5 mL 0.5 mL, IntraMUSCular, Prior to discharge, Starting on Thu02/28/23 at 0900, For 1 dose melatonin tablet 3 mg 3 mg, Oral, Nightly, First dose (after last modification) on Thu03/03/23 at 2100 2033 (Given - Provider: Shayy Cornell RN) 2002 (Given - Provider: Stephani Person LPN) memantine (Namenda) tablet 5 mg 5 mg, Oral, 2 times daily, First dose on Thu03/02/23 at 1430, For 15 doses 0818 (Given - Provider: Radha Pérez)2033 (Given - Provider: Shayy Cornell RN) 110 (Given - Provider: Fidelina Daniels RN)2002 (Given - Provider: Stephani Person LPN) 0939 (Given - Provider: Fidelina Daniels RN) memantine (Namenda) tablet 5 mg 5 mg, Oral, Daily, First dose on Thu03/10/23 at 0900, For 7 doses senna-docusate sodium (Senokot-S) 8.6-50 MG tablet 2 tablet 2 tablet, Oral, 2 times daily, First dose on Thu03/02/23 at 0930 0819 (Given - Provider: Radha Pérez)2034 (Given - Provider: Shayy Cornell RN) 110 (Given - Provider: Fidelina Daniels RN)2002 (Given - Provider: Stephani Person LPN) 09 (Given - Provider: Fidelina Daniels RN) tamoxifen (Nolvadex) chemo tablet 20 mg 20 mg, Oral, Daily, First dose on Thu02/28/23 at 0900, HAZARDOUS - Handle with care 0819 (Given - Provider: Radha Pérez) 1107 (Given - Provider: Fidelina Daniels RN) 0951 (Given - Provider: Fidelina Daniels RN) PRN Medication Order 03/04/2023 03/05/2023 03/06/2023 acetaminophen (Tylenol) suppository 650 mg(Linked Group 1) 650 mg, Rectal, Every 6 hours PRN, mild pain (1-3), fever, For temp greater than 100.4 F (38 C), Starting on Thu02/27/23 at 2341, Administer if oral route cannot be used. Maximum dose of acetaminophen is 4000 mg from all sources in 24 hours. acetaminophen (Tylenol) tablet 650 mg(Linked Group 1) 650 mg, Oral, Every 6 hours PRN, mild pain (1-3), fever, For temp greater than 100.4 F (38 C), Starting on Thu02/27/23 at 2341, Maximum dose of acetaminophen is 4000 mg from all sources in 24 hours. OLANZapine (ZyPREXA) 2.5 mg in sterile water 0.5 mL injection(Linked Group 2) 2.5 mg, IntraMUSCular, 3 times daily PRN, agitation, if unable to give PO, Starting on Thu03/02/23 at 1750, Each 10 mg vial to be reconstituted with 2.1 mL sterile water for injection to give a concentration of approx 5 mg/mL. Use immediately. Discard unused portion. ondansetron (Zofran) injection 4 mg(Linked Group 3) 4 mg, IntraVENous, Every 6 hours PRN, nausea, vomiting, Starting on Thu02/27/23 at 2341, 1st Line. Give IV if patient is unable to take orally. If inadequate response within 60 minutes, proceed to next-line agent or contact provider if no further options ordered. ondansetron ODT (Zofran-ODT) disintegrating tablet 4 mg(Linked Group 3) 4 mg, Oral, Every 8 hours PRN, nausea, vomiting, Starting on Thu02/27/23 at 2341, 1st Line. If inadequate response within 60 minutes, proceed to next-line agent or contact provider if no further options ordered. Patient should allow tablet to dissolve on tongue. Do not remove from blister pack until just before administering. polyethylene glycol (PEG) 3350 (Miralax) packet 17 g 17 g, Oral, Daily PRN, constipation, Starting on Thu02/27/23 at 2341, 1st line for treatment of constipation - give scheduled if no bowel movement in past 24 hours. QUEtiapine (SEROquel) tablet 12.5 mg(Linked Group 2) 12.5 mg, Oral, 3 times daily PRN, agitation, Starting on Thu03/02/23 at 1750 Linked Groups Order Group 1: acetaminophen (Tylenol) tablet 650 mgJump to med 650 mg, Oral, Every 6 hours PRN, mild pain (1-3), fever, For temp greater than 100.4 F (38 C), Starting on Thu02/27/23 at 2341, Maximum dose of acetaminophen is 4000 mg from all sources in 24 hours. Or acetaminophen (Tylenol) suppository 650 mgJump to med 650 mg, Rectal, Every 6 hours PRN, mild pain (1-3), fever, For temp greater than 100.4 F (38 C), Starting on Thu02/27/23 at 2341, Administer if oral route cannot be used. Maximum dose of acetaminophen is 4000 mg from all sources in 24 hours. Group 2: QUEtiapine (SEROquel) tablet 12.5 mgJump to med 12.5 mg, Oral, 3 times daily PRN, agitation, Starting on Thu03/02/23 at 1750 Or OLANZapine (ZyPREXA) 2.5 mg in sterile water 0.5 mL injectionJump to med 2.5 mg, IntraMUSCular, 3 times daily PRN, agitation, if unable to give PO, Starting on Thu03/02/23 at 1750, Each 10 mg vial to be reconstituted with 2.1 mL sterile water for injection to give a concentration of approx 5 mg/mL. Use immediately. Discard unused portion. Group 3: ondansetron ODT (Zofran-ODT) disintegrating tablet 4 mgJump to med 4 mg, Oral, Every 8 hours PRN, nausea, vomiting, Starting on Thu02/27/23 at 2341, 1st Line. If inadequate response within 60 minutes, proceed to next-line agent or contact provider if no further options ordered. Patient should allow tablet to dissolve on tongue. Do not remove from blister pack until just before administering. Or ondansetron (Zofran) injection 4 mgJump to med 4 mg, IntraVENous, Every 6 hours PRN, nausea, vomiting, Starting on Thu02/27/23 at 2341, 1st Line. Give IV if patient is unable to take orally. If inadequate response within 60 minutes, proceed to next-line agent or contact provider if no further options ordered. Goals (unrecognized section and content) Goals may be documented in a n alternate section FOR RECORDS PERTAINING TO PATIENTS WHO ARE OR HAVE BEEN ENROLLED IN A CHEMICAL DEPENDENCY/SUBSTANCEABUSE PROGRAM, SOME INFORMATION MAY BE OMITTED. This clinical summary was aggregated from multiple sources. Caution should be exercised in using it in the provision of clinical care. This summary normalizes information from multiple sources, and as a consequence, information in this document may materially change the coding, format and clinical context of patient data. In addition, data may be omitted in some cases. CLINICAL DECISIONS SHOULD BE BASED ON THE PRIMARY CLINICAL RECORDS. [employer] provides no warranty or guarantee of the accuracy or completeness of information in this document.
[2025-03-27 08:40] LABS: Hematocrit 36.6 % (37-47); Hemoglobin 12.1 g/dL (12.0-15.0); Mean Corp Hgb Conc 33.1 g/dL (32-36); Mean Corpuscular Volume 90.6 fL (81-99); Mean Platelet Vol. 9.9 fl (6.2-12.0); Platelet Count 242 K/mm3 (150-450); RBC Distribution Width CV 13.2 % (11.6-14.6); RBC Distribution Width SD 43.7 fl (35.1-43.9); Red Blood Count 4.04 M/mm3 (4.2-5.4); White Blood Count 6.2 K/mm3 (4.4-11.0)
[2025-03-27 09:31] LABS: AST(SGOT) 23 U/L (<=31); Alanine Aminotransfer ALT/SGPT 10 U/L (<=34); Albumin, Serum 3.7 g/dL (3.4-4.8); Alkaline Phosphatase 116 U/L (35-104); Anion Gap 11 (5-15); BUN 15 mg/dL (4-19); BUN/Creat Ratio 18.0 RATIO (10-20); Calcium,Total 9.6 mg/dL (7.6-11.0); Carbon Dioxide 23.6 mmol/L (21.0-32.0); Chloride 104 mmol/L (98-108); Cholesterol 233 mg/dL (<=200); Globulin 3.0 g/dL (2.2-4.2); Glucose 96 mg/dL (70-99); Low Density Lipoprotein Calc. 169 mg/dL; Potassium 4.2 mmol/L (3.3-5.1); Triglycerides 103 mg/dL; Very Low Density Lipoprotein 21 mg/dL (5-40); cholesterol:hdl ratio screen 5.07
== END ==
LOC: OLS.ACW300 05:00
PROVIDERS: Visit Provider Family Medicine
DX: G30.1 Alzheimer's disease with late onset (principal); Z79.899 Other long term (current) drug therapy
CPT/HCPCS: 36415; 80053; 80061; 84443; 85027